=== PATIENT | male | born 1975 ===

== ENCOUNTER 2018-04-13 20:28 | Inpatient (IN) | payer OTHER ==
[2018-04-13] MEDS ORDERED: Sodium Chloride 0.9% 1,000 ML IV ONE ×3 (20:40→22:43)
[2018-04-13 20:58] LABS: BASO % 0.3 % (0.0-2.0); EOS % 0.3 % (0.0-4.0); LYMPH # 0.1 K/uL (1.0-4.3); LYMPH % 0.7 % (20.0-40.0); MEAN CELL VOLUME 86.9 fL (80.0-94.0); MEAN CORPUSCULAR HEMOGLOBIN 29.1 pg (27.0-31.0); MEAN CORPUSCULAR HGB CONC 33.4 g/dL (33.0-37.0); MEAN PLATELET VOLUME 9.2 fL (7.2-11.7); MONO # 0.2 K/uL (0.0-0.8); MONO % 1.3 % (0.0-10.0); NEUT % 97.4 % (50.0-75.0); NRBC % 0.3 % (0.0-2.0); PLATELET COUNT 174 K/uL (130-400); RBC 4.81 Mil/uL (4.40-5.90); RED CELL DISTRIBUTION WIDTH 13.6 % (11.5-14.5); WHITE BLOOD COUNT 15.4 K/uL (4.8-10.8)
[2018-04-13 21:10] LABS: SQUAMOUS EPITHIAL 4 /hpf (0-5); URINE BACTERIA RARE (<OCC); URINE BILIRUBIN 1+ (NEGATIVE); URINE BLOOD 1+ (NEGATIVE); URINE CLARITY Hazy (Clear); URINE COLOR Amber (YELLOW); URINE GLUCOSE (UA) NORMAL (Normal); URINE HYALINE CAST >20 /lpf (0-2); URINE LEUKOCYTE ESTERASE NEG Leu/uL (Negative); URINE PROTEIN 2+ mg/dL (NEGATIVE)
[2018-04-13] MEDS ORDERED: Morphine 4 MG/ML VIAL ONE (21:10)
[2018-04-13 21:12] LABS: ALB/GLOB RATIO 1.3 (1.0-2.1); ALBUMIN 4.2 g/dL (3.5-5.0); CALCIUM 8.6 mg/dl (8.6-10.4)
[2018-04-13] MEDS ORDERED: Potassium Chloride 20 mEq ER Tab PO STA (21:21)
--- NOTE | 2018-04-13 21:48 | C.PDOC ---
History Of Present Illness 43 year old male presents to the ER with a complaint of right lower abdominal pain since this morning, as well as fever/chills since . Patient admits to some nausea but denies vomiting or diarrhea. He also reports he has been constipated for the past 3 days, which is not typical for him. He denies dysuria, hematuria, chest pain, SOB, cough, palpitations. Time Seen by Provider: 04/13/18 20:36 Chief Complaint (Nursing): Abdominal Pain History Per: Patient History/Exam Limitations: no limitations Onset/Duration Of Symptoms: Days Current Symptoms Are (Timing): Still Present Severity: Moderate Location Of Pain/Discomfort: RLQ Radiation Of Pain To:: None Quality Of Discomfort: Unable To Describe Associated Symptoms: Nausea, Constipation Exacerbating Factors: None Alleviating Factors: None Recent travel outside of the [place]: No Past Medical History Reviewed: Historical Data, Nursing Documentation, Vital Signs Vital Signs: Last Vital Signs Temp 100.3 F H 04/13/18 20:33 Pulse 145 H 04/13/18 20:33 Resp 22 04/13/18 20:33 BP 125/82 04/13/18 20:33 Pulse Ox 95 04/13/18 20:33 Family History: States: No Known Family Hx - Social History Hx Alcohol Use: Yes Hx Substance Use: No - Immunization History Hx Tetanus Toxoid Vaccination: No Hx Influenza Vaccination: No Hx Pneumococcal Vaccination: No Review Of Systems Except As Marked, All Systems Reviewed And Found Negative. Constitutional: Negative for: Fever, Chills Cardiovascular: Negative for: Chest Pain, Palpitations Respiratory: Negative for: Cough, Shortness of Breath Gastrointestinal: Positive for: Nausea, Abdominal Pain, Constipation. Negative for: Vomiting, Diarrhea Genitourinary: Negative for: Dysuria Physical Exam - Physical Exam Appears: Non-toxic, Other (Uncomfortable, In moderate pain) Skin: Normal Color, Warm, Dry, No Rash Head: Atraumatic, Normacephalic Eye(s): bilateral: Normal Inspection Oral Mucosa: Moist Neck: Normal, Supple Chest: Symmetrical, No Tenderness Cardiovascular: Rhythm Regular (Tachycardic) Respiratory: No Rales, Rhonchi (right sided lower), No Wheezing Gastrointestinal/Abdominal: Bowel Sounds, Soft, Tenderness (Right periumbilical area and RLQ TTP), Distention, No Guarding, No Rebound Back: No CVA Tenderness Pulses: Left Dorsalis Pedis: Normal, Right Dorsalis Pedis: Normal Neurological/Psych: Oriented x3 ED Course And Treatment - Laboratory Results Result Diagrams: 04/20/18 06:07 04/20/18 06:05 Lab Results: Total Bilirubin 1.5 mg/dL (0.2-1.3) H 04/13/18 20:55 AST 127 U/L (17-59) H 04/13/18 20:55 ALT 132 U/L (21-72) H 04/13/18 20:55 Alkaline Phosphatase 122 U/L (38-126) 04/13/18 20:55 Total Protein 7.4 g/dL (6.3-8.3) 04/13/18 20:55 Albumin 4.2 g/dL (3.5-5.0) 04/13/18 20:55 Globulin 3.2 gm/dL (2.2-3.9) 04/13/18 20:55 Albumin/Globulin Ratio 1.3 (1.0-2.1) 04/13/18 20:55 Lipase 13 U/L (23-300) L 04/13/18 20:55 Urine Color Elizabeth (YELLOW) 04/13/18 20:48 Urine Clarity Hazy (Clear) 04/13/18 20:48 Urine pH 5.0 (5.0-8.0) 04/13/18 20:48 Ur Specific [place] 1.023 (1.003-1.030) 04/13/18 20:48 Urine Protein 2+ mg/dL (NEGATIVE) H 04/13/18 20:48 Urine Glucose (UA) Normal mg/dL (Normal) 04/13/18 20:48 Urine Ketones Negative mg/dL (NEGATIVE) 04/13/18 20:48 Urine Blood 1+ (NEGATIVE) H 04/13/18 20:48 Urine Nitrate Negative (NEGATIVE) 04/13/18 20:48 Urine Bilirubin 1+ (NEGATIVE) H 04/13/18 20:48 Urine Urobilinogen 4.0 mg/dL (0.2-1.0) 04/13/18 20:48 Ur Leukocyte Esterase Neg Martine/uL (Negative) 04/13/18 20:48 Urine WBC (Auto) 11 /hpf (0-5) H 04/13/18 20:48 Urine RBC (Auto) 5 /hpf (0-3) H 04/13/18 20:48 Ur Squamous Epith Cells 4 /hpf (0-5) 04/13/18 20:48 Urine Bacteria Rare (<OCC) 04/13/18 20:48 Hyaline Casts >20 /lpf (0-2) H 04/13/18 20:48 ECG: Interpreted By Me, Viewed By Me (sinus tachycardia 131bpm, normal axis, no acute ST/T wave changes) ECG Interpretation: Normal, Abnormal O2 Sat by Pulse Oximetry: 95 (Room air) Pulse Ox Interpretation: Normal - CT Scan/US CT CHEST/ABD/PELVIS Other Rad Studies (CT/US): Read By Radiologist, Radiology Report Reviewed CT/US Interpretation: EXAM: CT Chest without Intravenous Contrast. CT Abdomen and Pelvis without Intravenous Contrast. CLINICAL HISTORY: RLQ PAIN. ABNORMAL CHEST. R/O MASS. TECHNIQUE: Axial computed tomography images of the chest, abdomen and pelvis without intravenous contrast. 0.00 mGy-cm. CONTRAST: Without. COMPARISON: None provided. FINDINGS: CHEST: LUNGS: No pulmonary mass. There is dense pneumonic consolidation present in the posterolateral right upper thorax, mid and lower thorax. The left lung appears satisfactorily aerated. PLEURAL SPACES: No evidence of pneumothorax. A small right pleural effusion is noted. HEART: No cardiomegaly. No pericardial effusion is identified. LYMPH NODES: Several mildly enlarged right middle mediastinal lymph nodes are present. These may represent reactive lymph nodes. No hilar or axillary lymphadenopathy is seen. ABDOMEN AND PELVIS: LIVER: There is hepatomegaly noted. The liver measured approximately 18.5 cm in the midclavicular line. There is associated diffuse hepatic steatosis noted. No focal lesions. GALLBLADDER AND BILE DUCTS: The gallbladder appears within normal limits. No radioopaque gallstones are seen. No biliary ductal dilatation is evident. PANCREAS: Unremarkable. SPLEEN: Unremarkable. Incidental discovery is made of a 1.6 cm accessory splenic lobule along the inferior pole of the spleen; a normal variant finding. ADRENAL GLANDS: Unremarkable. KIDNEYS, URETERS, AND BLADDER: Some nonspecific bilateral perinephric stranding is noted. Though nonspecific, this finding can sometimes indicate the presence of pyelonephritis. No hydronephrosis or nephrolithiasis. No uterteral or bladder calculi. STOMACH AND BOWEL: The stomach is mildly distended with fluid and gas. No evidence of bowel obstruction. No definite evidence suggesting enteritis or colitis. APPENDIX: No evidence of acute appendicitis on CT examination. PERITONEUM: No free fluid. No free air. LYMPH NODES: No lymphadenopathy is evident. VASCULATURE: No evidence of abdominal aortic aneurysm. REPRODUCTIVE: The seminal vesicles and prostate gland appear normal. BONES: No acute osseous abnormality. A limbus vertebrae is seen along the anterior-superior endplate of L4; a normal variant finding. IMPRESSION: 1. Extensive posterior right lung pneumonic consolidation. 2. Associated small right pleural effusion. 3. Hepatomegaly with associated diffuse hepatic steatosis. 4. Non- specific bilateral perinephric stranding. Though nonspecific, this finding can sometimes be consistent with pyelonephritis. 5. The stomach is mildly d istended with fluid and gas. . Electronically signed on Apr 13, 2018 10:36:35 PM EST by: Jaya Cabezas M.D., GLENNY Certified By ABR & CBC[employer]. Fellowship Trained MRI and CT Specialist. Progress Note: Blood work, CXR, UA ordered and reviewed. CXR abnormal on right side - CT chest/abd/pelvis ordered. Code sepsis called - Patient given IV fluids and broad spectrum antibiotics. Right sided pneumonia + abdominal pain with hyponatremia - possible leigonella pneumonia? 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 Denies cough. IV Avelox added to Vanco + Zosyn. 23:05- Patient accepted by Dr. Altman for ICU admission. Dr. Harrison (hospitalist) aware of admissiom to his service. - Physician Consult Information Physician Contacted: Fernando Harrison Outcome Of Conversation: Discussed patient with hospitalist, agrees with admission for fever, pneumonia, hypoxia, leukocytosis with bandemia, hyponatremi a, elevated creatinine. Critical Care Time - Critical Care Note Total Time (in mins): 45 Documented critical care: time excludes all time spent performing seperately billable procedures. Disposition - Disposition Disposition: HOSPITALIZED Disposition Time: 23:11 Condition: STABLE - Clinical Impression Clinical Impression: Fever, Pneumonia, Hypoxia, Leukocytosis, Bandemia, Hyponatremia, Creatinine elevation - Scribe Statement The provider has reviewed the documentation as recorded by the Scribe Bg Mackey All medical record entries made by the Scribe were at my direction and personally dictated by me. I have reviewed the chart and agree that the record accurately reflects my personal performance of the history, physical exam, medical decision making, and the department course for this patient. I have also personally directed, reviewed, and agree with the discharge instructions and disposition.
[2018-04-13] MEDS ORDERED: Piperacillin/Tazobact 3.375 gm 100 ML IV STA (21:56)
[2018-04-13] MEDS ORDERED: Sodium Chloride 0.9% 1,000 ML ONE ×3 (22:00→22:42)
[2018-04-13] MEDS ORDERED: Piperacillin/Tazobact 3.375 gm 100 ML IVPB ONE (22:05)
[2018-04-13] MEDS ORDERED: Vancomycin 1 GM 1 GM/250 ML BAG IVPB ONE (22:06)
[2018-04-13 22:30] LABS: ABG ALLEN TEST YES; ARTERIAL BLOOD GAS HCO3 20.9 mmol/L (21-28); ARTERIAL BLOOD GAS O2 SAT 86.7 % (95-98); ARTERIAL BLOOD GAS PCO2 32 mm/Hg (35-45); ARTERIAL BLOOD GAS PH 7.39 (7.35-7.45); ARTERIAL BLOOD GAS PO2 46 mm/Hg (80-100); ARTERIAL BLOOD GAS TCO2 20.4 mmol/L (22-28)
[2018-04-13] MEDS ORDERED: Moxifloxacin IV 400mg/250ml NS 400 MG/250 ML BAG IV ONE (22:36)
[2018-04-13 22:56] LABS: BLOOD UREA NITROGEN 15 mg/dL (9-20); CALCIUM 7.5 mg/dl (8.6-10.4); GFR NON-AFRICAN AMERICAN 51
[2018-04-13 23:01] LABS: BANDS 47 % (0-2); LYMPHOCYTE 2 % (20-40); MONOCYTE 4 % (0-10); NEUTROPHIL 47 % (50-75); PLATELET ESTIMATE NORMAL (NORMAL); TOTAL CELLS COUNTED 100
[2018-04-13 23:09] LABS: B-TYPE NATRIURETIC PEPTIDE 1720 pg/mL (0-450)
--- NOTE | 2018-04-13 23:17 | CP.PCM.HP ---
<RomanJose Maria - Last Filed: 04/14/18 00:47> History of Present Illness - History of Present Illness History of Present Illness: PGY-1 History and Physical [address] Harrison Patient is a 43 year old male with no past significant medical history presenting to ED with acute onset RLQ abdominal pain that began Friday night with associated subjective fevers/chills since last . Patient also endorses nausea but denies any vomiting or diarrhea. Also has constipation x 3 days, states that he bought herbal remedy but did not help. He denies shortness of breath but has appears clinically short of breath on exam. No headaches, dizziness, chest pain, palpitations, cough, abdominal pain, hematuria, dysuria, melena, hematochezia. PMHx: denies PSHx: denies Allergies: NKDA Home Medications: Pt states he took "antibiotic" at home, does not recall what Social Hx: social drinker, denies tobacco or illicit drug use. 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 Family Hx: unknown PMD: none Present on Admission - Present on Admission Any Indicators Present on Admission: No Review of Systems - Review of Systems All systems: reviewed and no additional remarkable complaints except Review of Systems: as per HPI Past Patient History - Past Social History Smoking Status: Never Smoked - PSYCHIATRIC Hx Substance Use: No Meds Allergies/Adverse Reactions: Allergies Allergy/AdvReac Type Severity Reaction Status Date / Time No Known Allergies Allergy Verified 04/13/18 20:35 Physical Exam - Constitutional Appears: In Acute Distress Additional comments: diaphoretic - Head Exam Head Exam: ATRAUMATIC, NORMAL INSPECTION, NORMOCEPHALIC - Eye Exam Eye Exam: EOMI, Normal appearance, PERRL Pupil Exam: NORMAL ACCOMODATION - ENT Exam ENT Exam: Normal Exam - Neck Exam Neck exam: Positive for: Full Rom, Normal Inspection. Negative for: Tenderness - Respiratory Exam Respiratory Exam: Rhonchi, NORMAL BREATHING PATTERN. absent: Accessory Muscle Use, Rales, Wheezes, Respiratory Distress, Stridor - Cardiovascular Exam Cardiovascular Exam: Tachycardia, +S1, +S2 - GI/Abdominal Exam GI & Abdominal Exam: Distended, Organomegaly, Soft, Tenderness (RLQ). absent: Firm, Guarding, Rebound, Rigid - Extremities Exam Extremities exam: Positive for: normal capillary refill, normal inspection, pedal pulses present. Negative for: calf tenderness, pedal edema - Back Exam Back exam: NORMAL INSPECTION. absent: CVA tenderness (L), CVA tenderness (R) - Neurological Exam Neurological exam: Alert, CN II-XII Intact, Oriented x3 - Skin Skin Exam: Diaphoretic, Intact, Normal Color, Warm Results - Vital Signs Recent Vital Signs: Last Vital Signs Temp 100.2 F H 04/13/18 22:51 Pulse 136 H 04/13/18 22:51 Resp 32 H 04/13/18 22:51 BP 121/85 04/13/18 22:51 Pulse Ox 95 04/13/18 23:16 - Labs Result Diagrams: 04/13/18 20:55 04/13/18 22:40 Labs: Laboratory Results - last 24 hr 04/13/18 04/13/18 04/13/18 20:48 20:55 20:55 WBC 15.4 H RBC 4.81 Hgb 14.0 Hct 41.8 MCV 86.9 MCH 29.1 MCHC 33.4 RDW 13.6 Plt Count 174 MPV 9.2 Neut % (Auto) 97.4 H Lymph % (Auto) 0.7 L [place] % (Auto) 1.3 Eos % (Auto) 0.3 Baso % (Auto) 0.3 Neut # (Auto) 15.0 H Lymph # (Auto) 0.1 L [place] # (Auto) 0.2 Eos # (Auto) 0.0 Baso # (Auto) 0.0 Neutrophils % (Manual) 47 L Band Neutrophils % 47 H* Lymphocytes % (Manual) 2 L Monocytes % (Manual) 4 Platelet Estimate Normal Puncture Site pCO2 pO2 HCO3 ABG pH ABG Total CO2 ABG O2 Saturation ABG Base Excess [place] Test ABG Potassium Glucose Lactate Sodium 123 L Potassium 3.4 L Chloride 87 L Carbon Dioxide 21 L Anion Gap 18 BUN 16 Creatinine 2.1 H Est GFR ( Amer) 42 Est GFR (Non-Af Amer) 34 Random Glucose 199 H Calcium 8.6 Total Bilirubin 1.5 H AST 127 H ALT 132 H Alkaline Phosphatase 122 Total Creatine Kinase Troponin I NT-Pro-B Natriuret Pep Total Protein 7.4 Albumin 4.2 Globulin 3.2 Albumin/Globulin Ratio 1.3 Lipase 13 L Arterial Blood Potassium Urine Color Elizabeth Urine Clarity Hazy Urine pH 5.0 Ur Specific [place] 1.023 Urine Protein 2+ H Urine Glucose (UA) Normal Urine Ketones Negative Urine Blood 1+ H Urine Nitrate Negative Urine Bilirubin 1+ H Urine Urobilinogen 4.0 Ur Leukocyte Esterase Neg Urine WBC (Auto) 11 H Urine RBC (Auto) 5 H Ur Squamous Epith Cells 4 Urine Bacteria Rare Hyaline Casts >20 H Influenza Typ A,B (EIA) 04/13/18 04/13/18 04/13/18 22:00 22:25 22:40 WBC RBC Hgb Hct MCV MCH MCHC RDW Plt Count MPV Neut % (Auto) Lymph % (Auto) [place] % (Auto) Eos % (Auto) Baso % (Auto) Neut # (Auto) Lymph # (Auto) [place] # (Auto) Eos # (Auto) Baso # (Auto) Neutrophils % (Manual) Band Neutrophils % Lymphocytes % (Manual) Monocytes % (Manual) Platelet Estimate Puncture Site Rr pCO2 32 L pO2 46 L HCO3 20.9 L ABG pH 7.39 ABG Total CO2 20.4 L ABG O2 Saturation 86.7 L ABG Base Excess -4.6 L [place] Test Yes ABG Potassium 3.3 L Glucose 165 H Lactate 3.7 H Sodium 126.0 L Potassium Chloride 91.0 L Carbon Dioxide Anion Gap BUN Creatinine Est GFR ( Amer) Est GFR (Non-Af Amer) Random Glucose Calcium Total Bilirubin AST ALT Alkaline Phosphatase Total Creatine Kinase 165 Troponin I < 0.0120 NT-Pro-B Natriuret Pep 1720 H Total Protein Albumin Globulin Albumin/Globulin Ratio Lipase Arterial Blood Potassium 3.3 L Urine Color Urine Clarity Urine pH Ur Specific [place] Urine Protein Urine Glucose (UA) Urine Ketones Urine Blood Urine Nitrate Urine Bilirubin Urine Urobilinogen Ur Leukocyte Esterase Urine WBC (Auto) Urine RBC (Auto) Ur Squamous Epith Cells Urine Bacteria Hyaline Casts Influenza Typ A,B (EIA) Negative for flu a/b 04/13/18 22:40 WBC RBC Hgb Hct MCV MCH MCHC RDW Plt Count MPV Neut % (Auto) Lymph % (Auto) [place] % (Auto) Eos % (Auto) Baso % (Auto) Neut # (Auto) Lymph # (Auto) [place] # (Auto) Eos # (Auto) Baso # (Auto) Neutrophils % (Manual) Band Neutrophils % Lymphocytes % (Manual) Monocytes % (Manual) Platelet Estimate Puncture Site pCO2 pO2 HCO3 ABG pH ABG Total CO2 ABG O2 Saturation ABG Base Excess [place] Test ABG Potassium Glucose Lactate Sodium 124 L Potassium 3.2 L Chloride 91 L Carbon Dioxide 22 Anion Gap 14 BUN 15 Creatinine 1.5 Est GFR ( Amer) > 60 Est GFR (Non-Af Amer) 51 Random Glucose 159 H D Calcium 7.5 L Total Bilirubin AST ALT Alkaline Phosphatase Total Creatine Kinase Troponin I NT-Pro-B Natriuret Pep Total Protein Albumin Globulin Albumin/Globulin Ratio Lipase Arterial Blood Potassium Urine Color Urine Clarity Urine pH Ur Specific [place] Urine Protein Urine Glucose (UA) Urine Ketones Urine Blood Urine Nitrate Urine Bilirubin Urine Urobilinogen Ur Leukocyte Esterase Urine WBC (Auto) Urine RBC (Auto) Ur Squamous Epith Cells Urine Bacteria Hyaline Casts Influenza Typ A,B (EIA) Assessment & Plan - Assessment and Plan (Free Text) Assessment: 43 year old M with no pmhx presenting to ED with acute onset RLQ abdominal pain, fevers/chills Plan: Acute hypoxic respiratory failure, likely 2/2 CAP -f/u abdominal obstructive series XR -EKG: sinus tachycardia @131 bpm, no acute ST/T wave changes -CT abdomen/pelvis: Extensive posterior R lung consolidation. Associated small R pleural effusion. Hepatomegaly with diffuse hepatic steatosis. Bilateral perinephric stranding. Mildly distended stomach with fluid and gas levels. -case discussed with ICU attending (Dr. Altman), pt to be admitted to ICU for further eval -starting on high flow oxygen with humidified air -Duonebs -c/w rocephin, azithromycin -chest pt -Incentive spirometer -influenza negative -f/u legionella FAB -Cr -received 3L NS in ED -c/w LR @100 cc/hr -I/Os Hyponatremia -hypovolemic vs possibly infectious if legionella -IVF -continue to monitor Constipation -senokit bid -high fiber diet PPx, Diet, Disposition -DVT ppx: lovenox -GI ppx: not currently indicated Case discussed with Dr. Hunter Owens DO, PGY-1 <Fernando Harrison P - Last Filed: 04/14/18 08:26> Results - Vital Signs Recent Vital Signs: Last Vital Signs Temp 99.7 F H 04/14/18 04:00 Pulse 121 H 04/14/18 07:00 Resp 41 H 04/14/18 07:43 BP 110/73 04/14/18 07:00 Pulse Ox 93 L 04/14/18 07:00 - Labs Result Diagrams: 04/14/18 06:07 04/14/18 06:07 Labs: Laboratory Results - last 24 hr 04/13/18 04/13/18 04/13/18 20:48 20:55 20:55 WBC 15.4 H RBC 4.81 Hgb 14.0 Hct 41.8 MCV 86.9 MCH 29.1 MCHC 33.4 RDW 13.6 Plt Count 174 MPV 9.2 Neut % (Auto) 97.4 H Lymph % (Auto) 0.7 L [place] % (Auto) 1.3 Eos % (Auto) 0.3 Baso % (Auto) 0.3 Neut # (Auto) 15.0 H Lymph # (Auto) 0.1 L [place] # (Auto) 0.2 Eos # (Auto) 0.0 Baso # (Auto) 0.0 Neutrophils % (Manual) 47 L Band Neutrophils % 47 H* Lymphocytes % (Manual) 2 L Monocytes % (Manual) 4 Platelet Estimate Normal Puncture Site pCO2 pO2 HCO3 ABG pH ABG Total CO2 ABG O2 Saturation ABG Base Excess [place] Test ABG Potassium Glucose Lactate Sodium 123 L Potassium 3.4 L Chloride 87 L Carbon Dioxide 21 L Anion Gap 18 BUN 16 Creatinine 2.1 H Est GFR ( Amer) 42 Est GFR (Non-Af Amer) 34 Random Glucose 199 H Lactic Acid Calcium 8.6 Phosphorus Magnesium Total Bilirubin 1.5 H AST 127 H ALT 132 H Alkaline Phosphatase 122 Total Creatine Kinase Troponin I NT-Pro-B Natriuret Pep Total Protein 7.4 Albumin 4.2 Globulin 3.2 Albumin/Globulin Ratio 1.3 Lipase 13 L Free T4 TSH 3rd Generation Arterial Blood Potassium Urine Color [place] Urine Clarity Hazy Urine pH 5.0 Ur Specific [place] 1.023 Urine Protein 2+ H Urine Glucose (UA) Normal Urine Ketones Negative Urine Blood 1+ H Urine Nitrate Negative Urine Bilirubin 1+ H Urine Urobilinogen 4.0 Ur Leukocyte Esterase Neg Urine WBC (Auto) 11 H Urine RBC (Auto) 5 H Ur Squamous Epith Cells 4 Urine Bacteria Rare Hyaline Casts >20 H Urine Osmolality Influenza Typ A,B (EIA) 04/13/18 04/13/18 04/13/18 22:00 22:25 22:40 WBC RBC Hgb Hct MCV MCH MCHC RDW Plt Count MPV Neut % (Auto) Lymph % (Auto) [place] % (Auto) Eos % (Auto) Baso % (Auto) Neut # (Auto) Lymph # (Auto) [place] # (Auto) Eos # (Auto) Baso # (Auto) Neutrophils % (Manual) Band Neutrophils % Lymphocytes % (Manual) Monocytes % (Manual) Platelet Estimate Puncture Site Rr pCO2 32 L pO2 46 L HCO3 20.9 L ABG pH 7.39 ABG Total CO2 20.4 L ABG O2 Saturation 86.7 L ABG Base Excess -4.6 L [place] Test Yes ABG Potassium 3.3 L Glucose 165 H Lactate 3.7 H Sodium 126.0 L Potassium Chloride 91.0 L Carbon Dioxide Anion Gap BUN Creatinine Est GFR ( Amer) Est GFR (Non-Af Amer) Random Glucose Lactic Acid Calcium Phosphorus Magnesium Total Bilirubin AST ALT Alkaline Phosphatase Total Creatine Kinase 165 Troponin I < 0.0120 NT-Pro-B Natriuret Pep 1720 H Total Protein Albumin Globulin Albumin/Globulin Ratio Lipase Free T4 TSH 3rd Generation Arterial Blood Potassium 3.3 L Urine Color Urine Clarity Urine pH Ur Specific [place] Urine Protein Urine Glucose (UA) Urine Ketones Urine Blood Urine Nitrate Urine Bilirubin Urine Urobilinogen Ur Leukocyte Esterase Urine WBC (Auto) Urine RBC (Auto) Ur Squamous Epith Cells Urine Bacteria Hyaline Casts Urine Osmolality Influenza Typ A,B (EIA) Negative for flu a/b 04/13/18 04/14/18 04/14/18 22:40 00:32 06:07 WBC RBC Hgb Hct MCV MCH MCHC RDW Plt Count MPV Neut % (Auto) Lymph % (Auto) [place] % (Auto) Eos % (Auto) Baso % (Auto) Neut # (Auto) Lymph # (Auto) [place] # (Auto) Eos # (Auto) Baso # (Auto) Neutrophils % (Manual) Band Neutrophils % Lymphocytes % (Manual) Monocytes % (Manual) Platelet Estimate Puncture Site pCO2 pO2 HCO3 ABG pH ABG Total CO2 ABG O2 Saturation ABG Base Excess [place] Test ABG Potassium Glucose Lactate Sodium 124 L Potassium 3.2 L Chloride 91 L Carbon Dioxide 22 Anion Gap 14 BUN 15 Creatinine 1.5 Est GFR ( Amer) > 60 Est GFR (Non-Af Amer) 51 Random Glucose 159 H D Lactic Acid 2.4 H Calcium 7.5 L Phosphorus Magnesium Total Bilirubin AST ALT Alkaline Phosphatase Total Creatine Kinase Troponin I NT-Pro-B Natriuret Pep Total Protein Albumin Globulin Albumin/Globulin Ratio Lipase Free T4 TSH 3rd Generation Arterial Blood Potassium Urine Color Urine Clarity Urine pH Ur Specific [place] Urine Protein Urine Glucose (UA) Urine Ketones Urine Blood Urine Nitrate Urine Bilirubin Urine Urobilinogen Ur Leukocyte Esterase Urine WBC (Auto) Urine RBC (Auto) Ur Squamous Epith Cells Urine Bacteria Hyaline Casts Urine Osmolality 745 Influenza Typ A,B (EIA) 04/14/18 04/14/18 04/14/18 06:07 06:07 06:07 WBC 9.5 RBC 4.49 Hgb 13.2 Hct 39.3 MCV 87.4 MCH 29.3 MCHC 33.5 RDW 13.7 Plt Count 148 MPV 10.0 Neut % (Auto) 94.9 H Lymph % (Auto) 2.1 L [place] % (Auto) 0.9 Eos % (Auto) 1.9 Baso % (Auto) 0.2 Neut # (Auto) 9.0 H Lymph # (Auto) 0.2 L [place] # (Auto) 0.1 Eos # (Auto) 0.2 Baso # (Auto) 0.0 Neutrophils % (Manual) Band Neutrophils % Lymphocytes % (Manual) Monocytes % (Manual) Platelet Estimate Puncture Site pCO2 pO2 HCO3 ABG pH ABG Total CO2 ABG O2 Saturation ABG Base Excess [place] Test ABG Potassium Glucose Lactate Sodium 125 L Potassium 3.3 L Chloride 95 L Carbon Dioxide 20 L Anion Gap 14 BUN 13 Creatinine 0.7 L Est GFR ( Amer) > 60 Est GFR (Non-Af Amer) > 60 Random Glucose 100 D Lactic Acid Calcium 7.4 L Phosphorus 3.1 Magnesium 1.2 L Total Bilirubin 1.6 H AST 95 H D ALT 98 H D Alkaline Phosphatase 83 Total Creatine Kinase Troponin I NT-Pro-B Natriuret Pep Total Protein 6.2 L Albumin 3.3 L D Globulin 2.9 Albumin/Globulin Ratio 1.1 Lipase Free T4 2.01 TSH 3rd Generation 1.42 Arterial Blood Potassium Urine Color Urine Clarity Urine pH Ur Specific [place] Urine Protein Urine Glucose (UA) Urine Ketones Urine Blood Urine Nitrate Urine Bilirubin Urine Urobilinogen Ur Leukocyte Esterase Urine WBC (Auto) Urine RBC (Auto) Ur Squamous Epith Cells Urine Bacteria Hyaline Casts Urine Osmolality Influenza Typ A,B (EIA) Attending/Attestation - Attestation I have personally seen and examined this patient.: Yes I have fully participated in the care of the patient.: Yes I have reviewed all pertinent clinical information: Yes Notes (Text): 04/14/18 08:22 * Right side multilobar infiltrate with parapneumonic effusion * ? Thickened diaphargm vs edema/hematoma, no clinical signs of acute blood loss * Hypoxia due to above and splinting need 60% high flow * Alcohols abuse in wk ends as per patient will start thiamine mvt, fa, and watch of sighns of withdrawal * Hypokalemia replaced Plan Abx supprotive care Replace electrolyties Vitamins as above Watch of early signs of alcohol withdrawal USG of the RUQ the check the thickened diaphragm area GI/DVt prophylaxis See orders for detail.
[2018-04-13] MEDS ORDERED: Potassium Chloride 20 mEq 100 ML ONE (23:19)
[2018-04-13] MEDS ORDERED: Moxifloxacin IV 400mg/250ml NS 400 MG/250 ML BAG IVPB ONE (23:31)
--- NOTE | 2018-04-14 00:16 | CP.PCM.CON ---
History of Present Illness - History of Present Illness History of Present Illness: 43 year old male with no past significant medical history presenting to ED with acute onset RLQ abdominal pain that began this morning with associated subjective fevers/chills since last . Patient also endorses nausea but denies any vomiting or diarrhea. Also has constipation x 3 days. No headaches, dizziness, chest pain, palpitations, sob, cough, abdominal pain, hematuria, dysuria, melena, hematochezia. Review of Systems - Review of Systems All systems: reviewed and no additional remarkable complaints except - Gastrointestinal Gastrointestinal: Abdominal Pain (RLQ) Past Patient History - Past Social History Smoking Status: Never Smoked - PSYCHIATRIC Hx Substance Use: No Meds Allergies/Adverse Reactions: Allergies Allergy/AdvReac Type Severity Reaction Status Date / Time No Known Allergies Allergy Verified 04/13/18 20:35 - Medications Medications: Current Medications Albuterol/Ipratropium (Duoneb 3 Mg/0.5 Mg (3 Ml) Ud) 3 ml INH RQ4 JESUS Potassium Chloride (Potassium Chloride 20 Meq/100 Ml) 20 meq in 100 mls @ 50 mls/hr IVPB ONCE ONE Stop: 04/14/18 01:00 Lactated Ringer's (Lactated Ringer's) 1,000 mls @ 100 mls/hr IV .Q10H JESUS Ceftriaxone Sodium 1 gm/ (Sodium Chloride) 100 mls @ 100 mls/hr IVPB Q12H JESUS; Protocol Azithromycin 500 mg/ Sodium (Chloride) 250 mls @ 250 mls/hr IVPB DAILY JESUS; Protocol Sennosides (Senokot Tab) 8.6 mg PO BID JESUS Physical Exam - Head Exam Head Exam: ATRAUMATIC, NORMAL INSPECTION, NORMOCEPHALIC - Eye Exam Eye Exam: EOMI, Normal appearance, PERRL Pupil Exam: NORMAL ACCOMODATION, PERRL - ENT Exam ENT Exam: Mucous Membranes Moist, Normal Exam - Neck Exam Neck exam: Positive for: Normal Inspection - Respiratory Exam Respiratory Exam: Clear to Auscultation Bilateral, NORMAL BREATHING PATTERN - Cardiovascular Exam Cardiovascular Exam: Tachycardia, REGULAR RHYTHM - GI/Abdominal Exam GI & Abdominal Exam: Distended - Extremities Exam Extremities exam: Positive for: normal inspection - Neurological Exam Neurological exam: Alert, CN II-XII Intact, Oriented x3, Reflexes Normal - Psychiatric Exam Psychiatric exam: Normal Affect, Normal Mood Results - Vital Signs Recent Vital Signs: Last Vital Signs Temp 99 F 04/13/18 23:39 Pulse 135 H 04/13/18 23:39 Resp 32 H 04/13/18 23:39 BP 129/81 04/13/18 23:39 Pulse Ox 90 L 04/13/18 23:39 - Labs Result Diagrams: 04/13/18 20:55 04/13/18 22:40 Labs: Laboratory Results - last 24 hr 04/13/18 04/13/18 04/13/18 20:48 20:55 20:55 WBC 15.4 H RBC 4.81 Hgb 14.0 Hct 41.8 MCV 86.9 MCH 29.1 MCHC 33.4 RDW 13.6 Plt Count 174 MPV 9.2 Neut % (Auto) 97.4 H Lymph % (Auto) 0.7 L [place] % (Auto) 1.3 Eos % (Auto) 0.3 Baso % (Auto) 0.3 Neut # (Auto) 15.0 H Lymph # (Auto) 0.1 L [place] # (Auto) 0.2 Eos # (Auto) 0.0 Baso # (Auto) 0.0 Neutrophils % (Manual) 47 L Band Neutrophils % 47 H* Lymphocytes % (Manual) 2 L Monocytes % (Manual) 4 Platelet Estimate Normal Puncture Site pCO2 pO2 HCO3 ABG pH ABG Total CO2 ABG O2 Saturation ABG Base Excess [place] Test ABG Potassium Glucose Lactate Sodium 123 L Potassium 3.4 L Chloride 87 L Carbon Dioxide 21 L Anion Gap 18 BUN 16 Creatinine 2.1 H Est GFR ( Amer) 42 Est GFR (Non-Af Amer) 34 Random Glucose 199 H Calcium 8.6 Total Bilirubin 1.5 H AST 127 H ALT 132 H Alkaline Phosphatase 122 Total Creatine Kinase Troponin I NT-Pro-B Natriuret Pep Total Protein 7.4 Albumin 4.2 Globulin 3.2 Albumin/Globulin Ratio 1.3 Lipase 13 L Arterial Blood Potassium Urine Color [place] Urine Clarity Hazy Urine pH 5.0 Ur Specific [place] 1.023 Urine Protein 2+ H Urine Glucose (UA) Normal Urine Ketones Negative Urine Blood 1+ H Urine Nitrate Negative Urine Bilirubin 1+ H Urine Urobilinogen 4.0 Ur Leukocyte Esterase Neg Urine WBC (Auto) 11 H Urine RBC (Auto) 5 H Ur Squamous Epith Cells 4 Urine Bacteria Rare Hyaline Casts >20 H Influenza Typ A,B (EIA) 04/13/18 04/13/18 04/13/18 22:00 22:25 22:40 WBC RBC Hgb Hct MCV MCH MCHC RDW Plt Count MPV Neut % (Auto) Lymph % (Auto) [place] % (Auto) Eos % (Auto) Baso % (Auto) Neut # (Auto) Lymph # (Auto) [place] # (Auto) Eos # (Auto) Baso # (Auto) Neutrophils % (Manual) Band Neutrophils % Lymphocytes % (Manual) Monocytes % (Manual) Platelet Estimate Puncture Site Rr pCO2 32 L pO2 46 L HCO3 20.9 L ABG pH 7.39 ABG Total CO2 20.4 L ABG O2 Saturation 86.7 L ABG Base Excess -4.6 L [place] Test Yes ABG Potassium 3.3 L Glucose 165 H Lactate 3.7 H Sodium 126.0 L Potassium Chloride 91.0 L Carbon Dioxide Anion Gap BUN Creatinine Est GFR ( Amer) Est GFR (Non-Af Amer) Random Glucose Calcium Total Bilirubin AST ALT Alkaline Phosphatase Total Creatine Kinase 165 Troponin I < 0.0120 NT-Pro-B Natriuret Pep 1720 H Total Protein Albumin Globulin Albumin/Globulin Ratio Lipase Arterial Blood Potassium 3.3 L Urine Color Urine Clarity Urine pH Ur Specific [place] Urine Protein Urine Glucose (UA) Urine Ketones Urine Blood Urine Nitrate Urine Bilirubin Urine Urobilinogen Ur Leukocyte Esterase Urine WBC (Auto) Urine RBC (Auto) Ur Squamous Epith Cells Urine Bacteria Hyaline Casts Influenza Typ A,B (EIA) Negative for flu a/b 04/13/18 22:40 WBC RBC Hgb Hct MCV MCH MCHC RDW Plt Count MPV Neut % (Auto) Lymph % (Auto) [place] % (Auto) Eos % (Auto) Baso % (Auto) Neut # (Auto) Lymph # (Auto) [place] # (Auto) Eos # (Auto) Baso # (Auto) Neutrophils % (Manual) Band Neutrophils % Lymphocytes % (Manual) Monocytes % (Manual) Platelet Estimate Puncture Site pCO2 pO2 HCO3 ABG pH ABG Total CO2 ABG O2 Saturation ABG Base Excess [place] Test ABG Potassium Glucose Lactate Sodium 124 L Potassium 3.2 L Chloride 91 L Carbon Dioxide 22 Anion Gap 14 BUN 15 Creatinine 1.5 Est GFR ( Amer) > 60 Est GFR (Non-Af Amer) 51 Random Glucose 159 H D Calcium 7.5 L Total Bilirubin AST ALT Alkaline Phosphatase Total Creatine Kinase Troponin I NT-Pro-B Natriuret Pep Total Protein Albumin Globulin Albumin/Globulin Ratio Lipase Arterial Blood Potassium Urine Color Urine Clarity Urine pH Ur Specific [place] Urine Protein Urine Glucose (UA) Urine Ketones Urine Blood Urine Nitrate Urine Bilirubin Urine Urobilinogen Ur Leukocyte Esterase Urine WBC (Auto) Urine RBC (Auto) Ur Squamous Epith Cells Urine Bacteria Hyaline Casts Influenza Typ A,B (EIA) Assessment & Plan (1) Community acquired pneumonia Assessment and Plan: 43yo M. No significant PMHx, p/w abdominal pain secondary to constipation and community acquired pneumonia. Neuro: alert and oriented x 3 Pulm: acute hypoxic respiratory failure, starting on high flow oxygen with humidified air. Duonebs, abx, chest pt, incentive spirometer CV: hemodynamically stable, tachycardia Hem: leucocytosis with bandemia Renal: acute kidney injury with slightly elevated creatinine, received 3L in ED, continue LR@100, will monitor urine output. Hyponatremia, possibly infection related if legionella, possibly hypovolemic hyponatremia. Endo: no acute issues GI: constipated, start on senokot bid. regular high fiber diet. ID: sepsis from community acquired pneumonia, continue ceftriaxone and azithromycin. f/u legionella, f/u flu. DVT proph - lovenox GI proph - not currently indicated Code status - Full code Critical Care Time spent 35 minutes Multi-disciplinary rounds were performed with house staff, nursing, speech therapy, respiratory therapy, pharmacy and nutrition with integrated input from the primary team/attending and other consulting services. The documented time is cumulative and includes review of patient data/exams/labs/chart review and examination of the patient on rounds and throughout the day; time is exclusive of any procedures or teaching time. Status: Acute
[2018-04-14] MEDS: Lactated Ringer's 1,000 ML IV SCH ×4 (00:45→20:15)
[2018-04-14] MEDS: Azithromycin 500 MG in Sodium Chloride 0.9% 250 ML IVPB SCH ×2 (02:45→10:12)
[2018-04-14] MEDS: Albuterol-Ipratrop 3 mg / 0.5 (3 ml) UD INH SCH ×4 (03:06→16:15)
[2018-04-14 06:31] LABS: BASO % 0.2 % (0.0-2.0); EOS # 0.2 K/uL (0.0-0.7); EOS % 1.9 % (0.0-4.0); HEMOGLOBIN 13.2 g/dL (12.0-18.0); LYMPH # 0.2 K/uL (1.0-4.3); LYMPH % 2.1 % (20.0-40.0); MEAN CELL VOLUME 87.4 fL (80.0-94.0); MEAN CORPUSCULAR HEMOGLOBIN 29.3 pg (27.0-31.0); MEAN CORPUSCULAR HGB CONC 33.5 g/dL (33.0-37.0); MONO # 0.1 K/uL (0.0-0.8); MONO % 0.9 % (0.0-10.0); NEUT % 94.9 % (50.0-75.0); PLATELET COUNT 148 K/uL (130-400); RBC 4.49 Mil/uL (4.40-5.90); RED CELL DISTRIBUTION WIDTH 13.7 % (11.5-14.5); WHITE BLOOD COUNT 9.5 K/uL (4.8-10.8)
[2018-04-14 07:09] LABS: ALB/GLOB RATIO 1.1 (1.0-2.1); ALBUMIN 3.3 g/dL (3.5-5.0); ALT/SGPT 98 U/L (21-72); AST/SGOT 95 U/L (17-59); BLOOD UREA NITROGEN 13 mg/dL (9-20); CALCIUM 7.4 mg/dl (8.6-10.4); GFR NON-AFRICAN AMERICAN > 60
[2018-04-14 08:36] LABS: BANDS 30 % (0-2); LYMPHOCYTE 2 % (20-40); METAMYELOCYTE 2 % (0-0); MONOCYTE 2 % (0-10); MYELOCYTE 3 % (0-0); NEUTROPHIL 60 % (50-75); PLATELET ESTIMATE NORMAL (NORMAL); REACTIVE LYMPHOCYTES 1 % (0-0); TOTAL CELLS COUNTED 100
[2018-04-14 08:37] LABS: TOXIC GRANULATION PRESENT
--- NOTE | 2018-04-14 08:49 | RAD ---
Date of service: 04/13/2018 PROCEDURE: Radiographs of the chest and abdomen (obstructive series) HISTORY: abd pain, constipation COMPARISON: No prior. TECHNIQUE: AP radiograph of the chest, with upright and supine radiographs of the abdomen. FINDINGS: CHEST: Lungs: Asymmetrical elevation of the right hemidiaphragm right basal mild compressive atelectasis here and/or infiltrate here needs to be considered. Right perihilar to right lateral pleural surface vague opacity consolidation with or without pleural fluid in the minor fissure are some considerations. Concomitant right perihilar soft tissue pathology including neoplasm needs to be excluded. Left lung appears clear. Possible prominent vessel seen on end in left hilum; comparison with earlier outside chest x-rays if available recommended. Trace calcified lymph nodes here also possible Cardiovascular: Normal size heart. No pulmonary vascular congestion. No aortic atherosclerotic calcification present Pleura: Right inferolateral pleural effusion continuing along the lateral to superior right hemithorax some element of loculation and/or chronicity is inferred. Clinical follow-up and correlation needed. Other findings: None. ABDOMEN AND PELVIS: Bowel:. Some of the bowel loops transverse colon appear displaced by a distended stomach. Moderate right stool retention. No colonic bowel obstruction suspect. Free air: None. Bones: Unremarkable. Other findings: Stomach appears distended gastric paresis and/or gastric outlet obstruction needs to be considered IMPRESSION: Right basal and right mid lung zone consolidations asymmetrically elevated right hemidiaphragm with blending right pleural effusion. The few the right effusion appears slightly loculated extending to the right lung apex chronic pleural thickening can simulate this. The mid right lung zone airspace opacity may in part be pleural fluid-with additional surrounding atelectasis and or infiltrate here. This continues to the right hilum-a concomitant right hilar soft tissue mass needs to be considered and excluded as if possible. Gastric distension-gastric paresis and/or gastric outlet obstruction needs to be considered. This exerts some mass effect on and displacement on the transverse colon.. No intrinsic small or large bowel obstruction appreciated. Right colon stool retention can be seen with constipation. Other findings as above. Comments: Study marked for PA review .
--- NOTE | 2018-04-14 10:20 | CT ---
CT chest abdomen and pelvis HISTORY: Chest pain. Abnormal chest x-ray. Abdominal pain. Comparison: Obstructive series dated 04/13/2018 Technique: Multiple contiguous axial images were performed through the chest abdomen and pelvis without the use of intravenous contrast. Subsequently, sagittal and coronal reformatted images were obtained. This CT exam was performed using one or more of the following dose reduction techniques: Automated exposure control, adjustment of the mA and/or kV according to patient size, and/or use of iterative reconstruction technique. Findings: Dense consolidation noted within the right lung seen at the level of the posterior aspect of the right upper lobe as well as within the right lower lobe. Small right pleural effusion. Left lung is grossly clear. Trachea thru central airways are patent. No significant axillary adenopathy. Heterogeneous thyroid. Few shotty right paratracheal lymph nodes measuring up to 9 millimeters. No significant hilar adenopathy although evaluation of the right nicole is limited without contrast. No pericardial effusion. Degenerative changes in the spine. CT abdomen and pelvis: Prominent liver with diffuse fatty infiltration. Relative areas of low attenuation seen within the medial right and left hepatic lobes on series 3, image 92 measuring 3.1 centimeters and 1.5 centimeters demonstrating a Hounsfield unit attenuation 24 and 13, nonspecific. This may represent some relative focal fatty sparing. This may be better delineated with a multiphasic contrast enhanced CT of the abdomen and pelvis if indicated. Gallbladder is grossly preserved. There may be some sludge within the gallbladder. This may be better evaluate ultrasound if clinically indicated. Splenule. Spleen is otherwise preserved. Adrenal glands are preserved. Pancreas is preserved. Distended stomach with fluid and gas. Nonspecific bilateral perinephric fat stranding is noted. Though nonspecific, this finding can sometimes indicate the presence pyelonephritis. Clinical correlation. Right kidney: No calculi or hydronephrosis. Left Kidney: No calculi or hydronephrosis. Urinary bladder is preserved. Prostate and seminal vesicles appear grossly preserved. Under distended left hemicolon. Appendix is grossly preserved. Few shotty para-aortic and inguinal lymph nodes. Few shotty mesenteric lymph nodes. Degenerative changes in the spine. Suggestion of a possible limbus vertebral body with ossified density noted at the anterior superior aspect of the L4 vertebral body with some mild concavity at the anterior superior L4 vertebral body. Impression: Extensive right lung consolidation suggestive for pneumonia. Post treatment interval follow-up is recommended to ensure resolution and exclude additional etiology. Clinical correlation. Small right pleural effusion. Hepatomegaly with associated diffuse hepatic steatosis. Two low-attenuation foci within the liver as described. Clinical correlation. Nonspecific bilateral perinephric fat stranding. Though nonspecific, these findings can sometimes be consistent with pyelonephritis. Clinical correlation. Distended stomach with fluid and gas. Clinical correlation. Gallbladder is grossly preserved. There may be some sludge within the gallbladder. This may be better evaluated with ultrasound if clinically indicated. Additional findings as above. A preliminary report was generated at 10:36 p.m. on 04/13/[address] Jaya patel from [email or web address].
[2018-04-14] MEDS: Enoxaparin 40 mg Syringe SC SCH (10:28)
[2018-04-14] MEDS: Multiple Vitamins Tab PO SCH (10:29)
[2018-04-14] MEDS ORDERED: Potassium Phosphate 20 MMOLE in Sodium Chloride 0.9% 250 ML IVPB ONE (10:30)
[2018-04-14] MEDS ORDERED: Magnesium Sulfate 1 gm in D5W 1 GM/100 ML BAG IVPB SCH (11:30)
[2018-04-14] MEDS: Magnesium Sulfate 1 gm in D5W 1 GM/100 ML BAG IVPB SCH ×4 (11:41→21:00)
--- NOTE | 2018-04-14 12:02 | CP.CCUPN ---
<Misael Tate - Last Filed: 04/14/18 14:43> CCU Subjective - Physician Review Subjective (Free Text): PGY-[address] Rangel service Patient is seen and examined at bedside. Patient states feeling better today. denies nausea, vomiting, and resolving right chest and upper quadrant, but remaining right lower quadrant pain, especially when moving or taking deep breath. Pain gets better after bowel movement. As per nurse, patient had a total of 2 bowel movements. Patient denies any other symptoms. Critical Care Time Spent (in minutes): 35 CCU Objective - Vital Signs / Intake & Output Vital Signs (Last 4 hours): Vital Signs Pulse Resp BP Pulse Ox 04/14/18 09:00 121 H 25 H 121/73 94 L Intake and Output (Last 8hrs): Intake & Output 04/13/18 04/14/18 04/14/18 22:59 06:59 14:59 Intake Total 2100 1860 200 Output Total 100 1200 Balance 2000 660 200 Weight 190 lb 207 lb 3.752 oz Intake: IV 2100 1000 Intake, IV Amount 800 200 Right Antecubital 800 200 Oral 60 Output: Urine 100 1200 Urine, Voided 1200 Other: Voiding Method Urinal # Voids Urine, Voided 1 - Physical Exam Head: Positive for: Atraumatic, Normocephalic Pupils: Positive for: PERRL Extroacular Muscles: Positive for: EOMI Conjunctiva: Positive for: Normal Neck: Positive for: Normal Range of Motion Respiratory/Chest: Positive for: Decreased Breath Sounds (right middle and lower lobes ), Rales. Negative for: Respiratory Distress, Accessory Muscle Use Cardiovascular: Positive for: Regular Rate and Rhythm, Normal S1, S2 Abdomen: Positive for: Distention, Normal Bowel Sounds. Negative for: Tenderness Upper Extremity: Positive for: Normal Inspection. Negative for: Cyanosis, Edema Lower Extremity: Positive for: Normal Inspection. Negative for: Edema Neurological: Positive for: CN II-XII Intact Skin: Positive for: Warm, Dry, Normal Color Psychiatric: Positive for: Alert, Oriented x 3, Normal Insight - Medications Active Medications: Active Medications Generic Name Dose Route Start Last Admin Trade Name Freq PRN Reason Stop Dose Admin Albuterol/Ipratropium 3 ml 04/14/18 04:00 04/14/18 07:43 Duoneb 3 Mg/0.5 Mg (3 Ml) Ud INH 3 ml RQ4 JESUS Administration Enoxaparin Sodium 40 mg 04/14/18 10:00 04/14/18 10:28 Lovenox SC 40 mg DAILY JESUS Administration Folic Acid 1 mg 04/14/18 10:00 04/14/18 10:29 Folic Acid PO 1 mg DAILY JESUS Administration Lactated Ringer's 1,000 mls @ 100 mls/hr 04/14/18 00:15 04/14/18 00:45 Lactated Ringer's IV 100 mls/hr .Q10H JESUS Administration Ceftriaxone Sodium 1 gm/ 100 mls @ 100 mls/hr 04/14/18 05:00 04/14/18 04:55 Sodium Chloride IVPB 100 mls/hr Q12H JESUS Administration Protocol Azithromycin 500 mg/ Sodium 250 mls @ 250 mls/hr 04/14/18 00:11 04/14/18 10:12 Chloride IVPB 250 mls/hr DAILY JESUS Administration Protocol Potassium Phosphate 20 mmole/ 256.6667 mls @ 42.5 mls/hr 04/14/18 10:30 04/14/18 11:42 Sodium Chloride IVPB 04/14/18 16:32 42.5 mls/hr ONCE ONE Administration Influenza Virus Vaccine 60 mcg 04/17/18 10:00 Flucelvax Quad 2408-5536 Syr IM 04/17/18 10:01 .ONCE ONE Multivitamins 1 tab 04/14/18 10:00 04/14/18 10:29 Hexavitamin PO 1 tab DAILY JESUS Administration Pantoprazole Sodium 40 mg 04/14/18 10:00 04/14/18 10:30 Protonix Inj IVP 40 mg DAILY JESUS Administration Sennosides 8.6 mg 04/14/18 00:15 04/14/18 10:29 Senokot Tab PO 8.6 mg BID JESUS Administration Thiamine HCl 100 mg 04/14/18 10:00 04/14/18 10:29 Vitamin B1 Tab PO 100 mg DAILY JESUS Administration - Patient Studies Lab Studies: Microbiology Studies 04/13/18 20:48 Urine Culture - Preliminary Urine Random No growth. Lab Studies 04/14/18 04/14/18 04/14/18 Range/Units 06:07 06:07 06:07 WBC 9.5 (4.8-10.8) K/uL RBC 4.49 (4.40-5.90) Mil/uL Hgb 13.2 (12.0-18.0) g/dL Hct 39.3 (35.0-51.0) % MCV 87.4 (80.0-94.0) fL MCH 29.3 (27.0-31.0) pg MCHC 33.5 (33.0-37.0) g/dL RDW 13.7 (11.5-14.5) % Plt Count 148 (130-400) K/uL MPV 10.0 (7.2-11.7) fL Neut % (Auto) 94.9 H (50.0-75.0) % Lymph % (Auto) 2.1 L (20.0-40.0) % [place]corn % (Auto) 0.9 (0.0-10.0) % Eos % (Auto) 1.9 (0.0-4.0) % Baso % (Auto) 0.2 (0.0-2.0) % Neut # (Auto) 9.0 H (1.8-7.0) K/uL Lymph # (Auto) 0.2 L (1.0-4.3) K/uL [place] # (Auto) 0.1 (0.0-0.8) K/uL Eos # (Auto) 0.2 (0.0-0.7) K/uL Baso # (Auto) 0.0 (0.0-0.2) K/uL Neutrophils % (Manual) 60 (50-75) % Band Neutrophils % 30 H* (0-2) % Lymphocytes % (Manual) 2 L (20-40) % Reactive Lymphs % 1 H (0-0) % Monocytes % (Manual) 2 (0-10) % Metamyelocytes % 2 H (0-0) % Myelocytes % 3 H (0-0) % Toxic Granulation Present Dohle Bodies Present Platelet Estimate Normal (NORMAL) RBC Morphology Normal Puncture Site pCO2 (35-45) mm/Hg pO2 (80-100) mm/Hg HCO3 (21-28) mmol/L ABG pH (7.35-7.45) ABG Total CO2 (22-28) mmol/L ABG O2 Saturation (95-98) % ABG Base Excess (-2.0-3.0) mmol/L [place] Test ABG Potassium (3.6-5.2) mmol/L Glucose (75-110) mg/dl Lactate (0.7-2.1) mmol/L Sodium 125 L (132-148) mmol/L Potassium 3.3 L (3.6-5.2) mmol/L Chloride 95 L (98-107) mmol/L Carbon Dioxide 20 L (22-30) mmol/L Anion Gap 14 (10-20) BUN 13 (9-20) mg/dL Creatinine 0.7 L (0.8-1.5) mg/dL Est GFR ( Amer) > 60 Est GFR (Non-Af Amer) > 60 Random Glucose 100 D (75-110) mg/dL Lactic Acid (0.7-2.1) mmol/L Calcium 7.4 L (8.6-10.4) mg/dl Phosphorus 3.1 (2.5-4.5) mg/dL Magnesium 1.2 L (1.6-2.3) mg/dL Total Bilirubin 1.6 H (0.2-1.3) mg/dL AST 95 H D (17-59) U/L ALT 98 H D (21-72) U/L Alkaline Phosphatase 83 (38-126) U/L Total Creatine Kinase (55-170) U/L Troponin I (0.00-0.120) ng/mL NT-Pro-B Natriuret Pep (0-450) pg/mL Total Protein 6.2 L (6.3-8.3) g/dL Albumin 3.3 L D (3.5-5.0) g/dL Globulin 2.9 (2.2-3.9) gm/dL Albumin/Globulin Ratio 1.1 (1.0-2.1) Lipase (23-300) U/L Free T4 2.01 (0.78-2.19) ng/dL TSH 3rd Generation 1.42 (0.46-4.68) mIU/L Arterial Blood Potassium (3.6-5.2) mmol/L Urine Color (YELLOW) Urine Clarity (Clear) Urine pH (5.0-8.0) Ur Specific [place] (1.003-1.030) Urine Protein (NEGATIVE) mg/dL Urine Glucose (UA) (Normal) mg/dL Urine Ketones (NEGATIVE) mg/dL Urine Blood (NEGATIVE) Urine Nitrate (NEGATIVE) Urine Bilirubin (NEGATIVE) Urine Urobilinogen (0.2-1.0) mg/dL Ur Leukocyte Esterase (Negative) Martine/uL Urine WBC (Auto) (0-5) /hpf Urine RBC (Auto) (0-3) /hpf Ur Squamous Epith Cells (0-5) /hpf Urine Bacteria (<OCC) Hyaline Casts (0-2) /lpf Urine Osmolality (300-1000) mosm/kg Influenza Typ A,B (EIA) (NEGATIVE) Ur L.pneumophila Ag (NEGATIVE) 04/14/18 04/14/18 04/13/18 Range/Units 06:07 00:32 22:46 WBC (4.8-10.8) K/uL RBC (4.40-5.90) Mil/uL Hgb (12.0-18.0) g/dL Hct (35.0-51.0) % MCV (80.0-94.0) fL MCH (27.0-31.0) pg MCHC (33.0-37.0) g/dL RDW (11.5-14.5) % Plt Count (130-400) K/uL MPV (7.2-11.7) fL Neut % (Auto) (50.0-75.0) % Lymph % (Auto) (20.0-40.0) % [place]corn % (Auto) (0.0-10.0) % Eos % (Auto) (0.0-4.0) % Baso % (Auto) (0.0-2.0) % Neut # (Auto) (1.8-7.0) K/uL Lymph # (Auto) (1.0-4.3) K/uL [place] # (Auto) (0.0-0.8) K/uL Eos # (Auto) (0.0-0.7) K/uL Baso # (Auto) (0.0-0.2) K/uL Neutrophils % (Manual) (50-75) % Band Neutrophils % (0-2) % Lymphocytes % (Manual) (20-40) % Reactive Lymphs % (0-0) % Monocytes % (Manual) (0-10) % Metamyelocytes % (0-0) % Myelocytes % (0-0) % Toxic Granulation Dohle Bodies Platelet Estimate (NORMAL) RBC Morphology Puncture Site pCO2 (35-45) mm/Hg pO2 (80-100) mm/Hg HCO3 (21-28) mmol/L ABG pH (7.35-7.45) ABG Total CO2 (22-28) mmol/L ABG O2 Saturation (95-98) % ABG Base Excess (-2.0-3.0) mmol/L [place] Test ABG Potassium (3.6-5.2) mmol/L Glucose (75-110) mg/dl Lactate (0.7-2.1) mmol/L Sodium (132-148) mmol/L Potassium (3.6-5.2) mmol/L Chloride (98-107) mmol/L Carbon Dioxide (22-30) mmol/L Anion Gap (10-20) BUN (9-20) mg/dL Creatinine (0.8-1.5) mg/dL Est GFR ( Amer) Est GFR (Non-Af Amer) Random Glucose (75-110) mg/dL Lactic Acid 2.4 H (0.7-2.1) mmol/L Calcium (8.6-10.4) mg/dl Phosphorus (2.5-4.5) mg/dL Magnesium (1.6-2.3) mg/dL Total Bilirubin (0.2-1.3) mg/dL AST (17-59) U/L ALT (21-72) U/L Alkaline Phosphatase (38-126) U/L Total Creatine Kinase (55-170) U/L Troponin I (0.00-0.120) ng/mL NT-Pro-B Natriuret Pep (0-450) pg/mL Total Protein (6.3-8.3) g/dL Albumin (3.5-5.0) g/dL Globulin (2.2-3.9) gm/dL Albumin/Globulin Ratio (1.0-2.1) Lipase (23-300) U/L Free T4 (0.78-2.19) ng/dL TSH 3rd Generation (0.46-4.68) mIU/L Arterial Blood Potassium (3.6-5.2) mmol/L Urine Color (YELLOW) Urine Clarity (Clear) Urine pH (5.0-8.0) Ur Specific [place] (1.003-1.030) Urine Protein (NEGATIVE) mg/dL Urine Glucose (UA) (Normal) mg/dL Urine Ketones (NEGATIVE) mg/dL Urine Blood (NEGATIVE) Urine Nitrate (NEGATIVE) Urine Bilirubin (NEGATIVE) Urine Urobilinogen (0.2-1.0) mg/dL Ur Leukocyte Esterase (Negative) Martine/uL Urine WBC (Auto) (0-5) /hpf Urine RBC (Auto) (0-3) /hpf Ur Squamous Epith Cells (0-5) /hpf Urine Bacteria (<OCC) Hyaline Casts (0-2) /lpf Urine Osmolality 745 (300-1000) mosm/kg Influenza Typ A,B (EIA) (NEGATIVE) Ur L.pneumophila Ag Negative (NEGATIVE) 04/13/18 04/13/18 04/13/18 Range/Units 22:40 22:40 22:25 WBC (4.8-10.8) K/uL RBC (4.40-5.90) Mil/uL Hgb (12.0-18.0) g/dL Hct (35.0-51.0) % MCV (80.0-94.0) fL MCH (27.0-31.0) pg MCHC (33.0-37.0) g/dL RDW (11.5-14.5) % Plt Count (130-400) K/uL MPV (7.2-11.7) fL Neut % (Auto) (50.0-75.0) % Lymph % (Auto) (20.0-40.0) % [place] % (Auto) (0.0-10.0) % Eos % (Auto) (0.0-4.0) % Baso % (Auto) (0.0-2.0) % Neut # (Auto) (1.8-7.0) K/uL Lymph # (Auto) (1.0-4.3) K/uL [place] # (Auto) (0.0-0.8) K/uL Eos # (Auto) (0.0-0.7) K/uL Baso # (Auto) (0.0-0.2) K/uL Neutrophils % (Manual) (50-75) % Band Neutrophils % (0-2) % Lymphocytes % (Manual) (20-40) % Reactive Lymphs % (0-0) % Monocytes % (Manual) (0-10) % Metamyelocytes % (0-0) % Myelocytes % (0-0) % Toxic Granulation Dohle Bodies Platelet Estimate (NORMAL) RBC Morphology Puncture Site pCO2 (35-45) mm/Hg pO2 (80-100) mm/Hg HCO3 (21-28) mmol/L ABG pH (7.35-7.45) ABG Total CO2 (22-28) mmol/L ABG O2 Saturation (95-98) % ABG Base Excess (-2.0-3.0) mmol/L [place] Test ABG Potassium (3.6-5.2) mmol/L Glucose (75-110) mg/dl Lactate (0.7-2.1) mmol/L Sodium 124 L (132-148) mmol/L Potassium 3.2 L (3.6-5.2) mmol/L Chloride 91 L (98-107) mmol/L Carbon Dioxide 22 (22-30) mmol/L Anion Gap 14 (10-20) BUN 15 (9-20) mg/dL Creatinine 1.5 (0.8-1.5) mg/dL Est GFR ( Amer) > 60 Est GFR (Non-Af Amer) 51 Random Glucose 159 H D (75-110) mg/dL Lactic Acid (0.7-2.1) mmol/L Calcium 7.5 L (8.6-10.4) mg/dl Phosphorus (2.5-4.5) mg/dL Magnesium (1.6-2.3) mg/dL Total Bilirubin (0.2-1.3) mg/dL AST (17-59) U/L ALT (21-72) U/L Alkaline Phosphatase (38-126) U/L Total Creatine Kinase 165 (55-170) U/L Troponin I < 0.0120 (0.00-0.120) ng/mL NT-Pro-B Natriuret Pep 1720 H (0-450) pg/mL Total Protein (6.3-8.3) g/dL Albumin (3.5-5.0) g/dL Globulin (2.2-3.9) gm/dL Albumin/Globulin Ratio (1.0-2.1) Lipase (23-300) U/L Free T4 (0.78-2.19) ng/dL TSH 3rd Generation (0.46-4.68) mIU/L Arterial Blood Potassium (3.6-5.2) mmol/L Urine Color (YELLOW) Urine Clarity (Clear) Urine pH (5.0-8.0) Ur Specific [place] (1.003-1.030) Urine Protein (NEGATIVE) mg/dL Urine Glucose (UA) (Normal) mg/dL Urine Ketones (NEGATIVE) mg/dL Urine Blood (NEGATIVE) Urine Nitrate (NEGATIVE) Urine Bilirubin (NEGATIVE) Urine Urobilinogen (0.2-1.0) mg/dL Ur Leukocyte Esterase (Negative) Martine/uL Urine WBC (Auto) (0-5) /hpf Urine RBC (Auto) (0-3) /hpf Ur Squamous Epith Cells (0-5) /hpf Urine Bacteria (<OCC) Hyaline Casts (0-2) /lpf Urine Osmolality (300-1000) mosm/kg Influenza Typ A,B (EIA) Negative for flu a/b (NEGATIVE) Ur L.pneumophila Ag (NEGATIVE) 04/13/18 04/13/18 04/13/18 Range/Units 22:00 20:55 20:55 WBC 15.4 H (4.8-10.8) K/uL RBC 4.81 (4.40-5.90) Mil/uL Hgb 14.0 (12.0-18.0) g/dL Hct 41.8 (35.0-51.0) % MCV 86.9 (80.0-94.0) fL MCH 29.1 (27.0-31.0) pg MCHC 33.4 (33.0-37.0) g/dL RDW 13.6 (11.5-14.5) % Plt Count 174 (130-400) K/uL MPV 9.2 (7.2-11.7) fL Neut % (Auto) 97.4 H (50.0-75.0) % Lymph % (Auto) 0.7 L (20.0-40.0) % [place] % (Auto) 1.3 (0.0-10.0) % Eos % (Auto) 0.3 (0.0-4.0) % Baso % (Auto) 0.3 (0.0-2.0) % Neut # (Auto) 15.0 H (1.8-7.0) K/uL Lymph # (Auto) 0.1 L (1.0-4.3) K/uL [place] # (Auto) 0.2 (0.0-0.8) K/uL Eos # (Auto) 0.0 (0.0-0.7) K/uL Baso # (Auto) 0.0 (0.0-0.2) K/uL Neutrophils % (Manual) 47 L (50-75) % Band Neutrophils % 47 H* (0-2) % Lymphocytes % (Manual) 2 L (20-40) % Reactive Lymphs % (0-0) % Monocytes % (Manual) 4 (0-10) % Metamyelocytes % (0-0) % Myelocytes % (0-0) % Toxic Granulation Dohle Bodies Platelet Estimate Normal (NORMAL) RBC Morphology Puncture Site Rr pCO2 32 L (35-45) mm/Hg pO2 46 L (80-100) mm/Hg HCO3 20.9 L (21-28) mmol/L ABG pH 7.39 (7.35-7.45) ABG Total CO2 20.4 L (22-28) mmol/L ABG O2 Saturation 86.7 L (95-98) % ABG Base Excess -4.6 L (-2.0-3.0) mmol/L [place] Test Yes ABG Potassium 3.3 L (3.6-5.2) mmol/L Glucose 165 H (75-110) mg/dl Lactate 3.7 H (0.7-2.1) mmol/L Sodium 126.0 L 123 L (132-148) mmol/L Potassium 3.4 L (3.6-5.2) mmol/L Chloride 91.0 L 87 L (98-107) mmol/L Carbon Dioxide 21 L (22-30) mmol/L Anion Gap 18 (10-20) BUN 16 (9-20) mg/dL Creatinine 2.1 H (0.8-1.5) mg/dL Est GFR ( Amer) 42 Est GFR (Non-Af Amer) 34 Random Glucose 199 H (75-110) mg/dL Lactic Acid (0.7-2.1) mmol/L Calcium 8.6 (8.6-10.4) mg/dl Phosphorus (2.5-4.5) mg/dL Magnesium (1.6-2.3) mg/dL Total Bilirubin 1.5 H (0.2-1.3) mg/dL AST 127 H (17-59) U/L ALT 132 H (21-72) U/L Alkaline Phosphatase 122 (38-126) U/L Total Creatine Kinase (55-170) U/L Troponin I (0.00-0.120) ng/mL NT-Pro-B Natriuret Pep (0-450) pg/mL Total Protein 7.4 (6.3-8.3) g/dL Albumin 4.2 (3.5-5.0) g/dL Globulin 3.2 (2.2-3.9) gm/dL Albumin/Globulin Ratio 1.3 (1.0-2.1) Lipase 13 L (23-300) U/L Free T4 (0.78-2.19) ng/dL TSH 3rd Generation (0.46-4.68) mIU/L Arterial Blood Potassium 3.3 L (3.6-5.2) mmol/L Urine Color (YELLOW) Urine Clarity (Clear) Urine pH (5.0-8.0) Ur Specific [place] (1.003-1.030) Urine Protein (NEGATIVE) mg/dL Urine Glucose (UA) (Normal) mg/dL Urine Ketones (NEGATIVE) mg/dL Urine Blood (NEGATIVE) Urine Nitrate (NEGATIVE) Urine Bilirubin (NEGATIVE) Urine Urobilinogen (0.2-1.0) mg/dL Ur Leukocyte Esterase (Negative) Martine/uL Urine WBC (Auto) (0-5) /hpf Urine RBC (Auto) (0-3) /hpf Ur Squamous Epith Cells (0-5) /hpf Urine Bacteria (<OCC) Hyaline Casts (0-2) /lpf Urine Osmolality (300-1000) mosm/kg Influenza Typ A,B (EIA) (NEGATIVE) Ur L.pneumophila Ag (NEGATIVE) 04/13/18 Range/Units 20:48 WBC (4.8-10.8) K/uL RBC (4.40-5.90) Mil/uL Hgb (12.0-18.0) g/dL Hct (35.0-51.0) % MCV (80.0-94.0) fL MCH (27.0-31.0) pg MCHC (33.0-37.0) g/dL RDW (11.5-14.5) % Plt Count (130-400) K/uL MPV (7.2-11.7) fL Neut % (Auto) (50.0-75.0) % Lymph % (Auto) (20.0-40.0) % [place] % (Auto) (0.0-10.0) % Eos % (Auto) (0.0-4.0) % Baso % (Auto) (0.0-2.0) % Neut # (Auto) (1.8-7.0) K/uL Lymph # (Auto) (1.0-4.3) K/uL [place] # (Auto) (0.0-0.8) K/uL Eos # (Auto) (0.0-0.7) K/uL Baso # (Auto) (0.0-0.2) K/uL Neutrophils % (Manual) (50-75) % Band Neutrophils % (0-2) % Lymphocytes % (Manual) (20-40) % Reactive Lymphs % (0-0) % Monocytes % (Manual) (0-10) % Metamyelocytes % (0-0) % Myelocytes % (0-0) % Toxic Granulation Dohle Bodies Platelet Estimate (NORMAL) RBC Morphology Puncture Site pCO2 (35-45) mm/Hg pO2 (80-100) mm/Hg HCO3 (21-28) mmol/L ABG pH (7.35-7.45) ABG Total CO2 (22-28) mmol/L ABG O2 Saturation (95-98) % ABG Base Excess (-2.0-3.0) mmol/L [place] Test ABG Potassium (3.6-5.2) mmol/L Glucose (75-110) mg/dl Lactate (0.7-2.1) mmol/L Sodium (132-148) mmol/L Potassium (3.6-5.2) mmol/L Chloride (98-107) mmol/L Carbon Dioxide (22-30) mmol/L Anion Gap (10-20) BUN (9-20) mg/dL Creatinine (0.8-1.5) mg/dL Est GFR ( Amer) Est GFR (Non-Af Amer) Random Glucose (75-110) mg/dL Lactic Acid (0.7-2.1) mmol/L Calcium (8.6-10.4) mg/dl Phosphorus (2.5-4.5) mg/dL Magnesium (1.6-2.3) mg/dL Total Bilirubin (0.2-1.3) mg/dL AST (17-59) U/L ALT (21-72) U/L Alkaline Phosphatase (38-126) U/L Total Creatine Kinase (55-170) U/L Troponin I (0.00-0.120) ng/mL NT-Pro-B Natriuret Pep (0-450) pg/mL Total Protein (6.3-8.3) g/dL Albumin (3.5-5.0) g/dL Globulin (2.2-3.9) gm/dL Albumin/Globulin Ratio (1.0-2.1) Lipase (23-300) U/L Free T4 (0.78-2.19) ng/dL TSH 3rd Generation (0.46-4.68) mIU/L Arterial Blood Potassium (3.6-5.2) mmol/L Urine Color [place] (YELLOW) Urine Clarity Hazy (Clear) Urine pH 5.0 (5.0-8.0) Ur Specific [place] 1.023 (1.003-1.030) Urine Protein 2+ H (NEGATIVE) mg/dL Urine Glucose (UA) Normal (Normal) mg/dL Urine Ketones Negative (NEGATIVE) mg/dL Urine Blood 1+ H (NEGATIVE) Urine Nitrate Negative (NEGATIVE) Urine Bilirubin 1+ H (NEGATIVE) Urine Urobilinogen 4.0 (0.2-1.0) mg/dL Ur Leukocyte Esterase Neg (Negative) Martine/uL Urine WBC (Auto) 11 H (0-5) /hpf Urine RBC (Auto) 5 H (0-3) /hpf Ur Squamous Epith Cells 4 (0-5) /hpf Urine Bacteria Rare (<OCC) Hyaline Casts >20 H (0-2) /lpf Urine Osmolality (300-1000) mosm/kg Influenza Typ A,B (EIA) (NEGATIVE) Ur L.pneumophila Ag (NEGATIVE) Laboratory Results - last 24 hr 04/13/18 04/13/18 04/13/18 20:48 20:55 20:55 WBC 15.4 H RBC 4.81 Hgb 14.0 Hct 41.8 MCV 86.9 MCH 29.1 MCHC 33.4 RDW 13.6 Plt Count 174 MPV 9.2 Neut % (Auto) 97.4 H Lymph % (Auto) 0.7 L [place] % (Auto) 1.3 Eos % (Auto) 0.3 Baso % (Auto) 0.3 Neut # (Auto) 15.0 H Lymph # (Auto) 0.1 L [place] # (Auto) 0.2 Eos # (Auto) 0.0 Baso # (Auto) 0.0 Neutrophils % (Manual) 47 L Band Neutrophils % 47 H* Lymphocytes % (Manual) 2 L Reactive Lymphs % Monocytes % (Manual) 4 Metamyelocytes % Myelocytes % Toxic Granulation Dohle Bodies Platelet Estimate Normal RBC Morphology Puncture Site pCO2 pO2 HCO3 ABG pH ABG Total CO2 ABG O2 Saturation ABG Base Excess [place] Test ABG Potassium Glucose Lactate Sodium 123 L Potassium 3.4 L Chloride 87 L Carbon Dioxide 21 L Anion Gap 18 BUN 16 Creatinine 2.1 H Est GFR ( Amer) 42 Est GFR (Non-Af Amer) 34 Random Glucose 199 H Lactic Acid Calcium 8.6 Phosphorus Magnesium Total Bilirubin 1.5 H AST 127 H ALT 132 H Alkaline Phosphatase 122 Total Creatine Kinase Troponin I NT-Pro-B Natriuret Pep Total Protein 7.4 Albumin 4.2 Globulin 3.2 Albumin/Globulin Ratio 1.3 Lipase 13 L Free T4 TSH 3rd Generation Arterial Blood Potassium Urine Color [place] Urine Clarity Hazy Urine pH 5.0 Ur Specific [place] 1.023 Urine Protein 2+ H Urine Glucose (UA) Normal Urine Ketones Negative Urine Blood 1+ H Urine Nitrate Negative Urine Bilirubin 1+ H Urine Urobilinogen 4.0 Ur Leukocyte Esterase Neg Urine WBC (Auto) 11 H Urine RBC (Auto) 5 H Ur Squamous Epith Cells 4 Urine Bacteria Rare Hyaline Casts >20 H Urine Osmolality Influenza Typ A,B (EIA) Ur L.pneumophila Ag 04/13/18 04/13/18 04/13/18 22:00 22:25 22:40 WBC RBC Hgb Hct MCV MCH MCHC RDW Plt Count MPV Neut % (Auto) Lymph % (Auto) [place] % (Auto) Eos % (Auto) Baso % (Auto) Neut # (Auto) Lymph # (Auto) [place] # (Auto) Eos # (Auto) Baso # (Auto) Neutrophils % (Manual) Band Neutrophils % Lymphocytes % (Manual) Reactive Lymphs % Monocytes % (Manual) Metamyelocytes % Myelocytes % Toxic Granulation Dohle Bodies Platelet Estimate RBC Morphology Puncture Site Rr pCO2 32 L pO2 46 L HCO3 20.9 L ABG pH 7.39 ABG Total CO2 20.4 L ABG O2 Saturation 86.7 L ABG Base Excess -4.6 L [place] Test Yes ABG Potassium 3.3 L Glucose 165 H Lactate 3.7 H Sodium 126.0 L Potassium Chloride 91.0 L Carbon Dioxide Anion Gap BUN Creatinine Est GFR ( Amer) Est GFR (Non-Af Amer) Random Glucose Lactic Acid Calcium Phosphorus Magnesium Total Bilirubin AST ALT Alkaline Phosphatase Total Creatine Kinase 165 Troponin I < 0.0120 NT-Pro-B Natriuret Pep 1720 H Total Protein Albumin Globulin Albumin/Globulin Ratio Lipase Free T4 TSH 3rd Generation Arterial Blood Potassium 3.3 L Urine Color Urine Clarity Urine pH Ur Specific [place] Urine Protein Urine Glucose (UA) Urine Ketones Urine Blood Urine Nitrate Urine Bilirubin Urine Urobilinogen Ur Leukocyte Esterase Urine WBC (Auto) Urine RBC (Auto) Ur Squamous Epith Cells Urine Bacteria Hyaline Casts Urine Osmolality Influenza Typ A,B (EIA) Negative for flu a/b Ur L.pneumophila Ag 04/13/18 04/13/18 04/14/18 22:40 22:46 00:32 WBC RBC Hgb Hct MCV MCH MCHC RDW Plt Count MPV Neut % (Auto) Lymph % (Auto) [place] % (Auto) Eos % (Auto) Baso % (Auto) Neut # (Auto) Lymph # (Auto) [place] # (Auto) Eos # (Auto) Baso # (Auto) Neutrophils % (Manual) Band Neutrophils % Lymphocytes % (Manual) Reactive Lymphs % Monocytes % (Manual) Metamyelocytes % Myelocytes % Toxic Granulation Dohle Bodies Platelet Estimate RBC Morphology Puncture Site pCO2 pO2 HCO3 ABG pH ABG Total CO2 ABG O2 Saturation ABG Base Excess [place] Test ABG Potassium Glucose Lactate Sodium 124 L Potassium 3.2 L Chloride 91 L Carbon Dioxide 22 Anion Gap 14 BUN 15 Creatinine 1.5 Est GFR ( Amer) > 60 Est GFR (Non-Af Amer) 51 Random Glucose 159 H D Lactic Acid 2.4 H Calcium 7.5 L Phosphorus Magnesium Total Bilirubin AST ALT Alkaline Phosphatase Total Creatine Kinase Troponin I NT-Pro-B Natriuret Pep Total Protein Albumin Globulin Albumin/Globulin Ratio Lipase Free T4 TSH 3rd Generation Arterial Blood Potassium Urine Color Urine Clarity Urine pH Ur Specific [place] Urine Protein Urine Glucose (UA) Urine Ketones Urine Blood Urine Nitrate Urine Bilirubin Urine Urobilinogen Ur Leukocyte Esterase Urine WBC (Auto) Urine RBC (Auto) Ur Squamous Epith Cells Urine Bacteria Hyaline Casts Urine Osmolality Influenza Typ A,B (EIA) Ur L.pneumophila Ag Negative 04/14/18 04/14/18 04/14/18 06:07 06:07 06:07 WBC RBC Hgb Hct MCV MCH MCHC RDW Plt Count MPV Neut % (Auto) Lymph % (Auto) [place] % (Auto) Eos % (Auto) Baso % (Auto) Neut # (Auto) Lymph # (Auto) [place] # (Auto) Eos # (Auto) Baso # (Auto) Neutrophils % (Manual) Band Neutrophils % Lymphocytes % (Manual) Reactive Lymphs % Monocytes % (Manual) Metamyelocytes % Myelocytes % Toxic Granulation Dohle Bodies Platelet Estimate RBC Morphology Puncture Site pCO2 pO2 HCO3 ABG pH ABG Total CO2 ABG O2 Saturation ABG Base Excess [place] Test ABG Potassium Glucose Lactate Sodium 125 L Potassium 3.3 L Chloride 95 L Carbon Dioxide 20 L Anion Gap 14 BUN 13 Creatinine 0.7 L Est GFR ( Amer) > 60 Est GFR (Non-Af Amer) > 60 Random Glucose 100 D Lactic Acid Calcium 7.4 L Phosphorus 3.1 Magnesium 1.2 L Total Bilirubin 1.6 H AST 95 H D ALT 98 H D Alkaline Phosphatase 83 Total Creatine Kinase Troponin I NT-Pro-B Natriuret Pep Total Protein 6.2 L Albumin 3.3 L D Globulin 2.9 Albumin/Globulin Ratio 1.1 Lipase Free T4 2.01 TSH 3rd Generation 1.42 Arterial Blood Potassium Urine Color Urine Clarity Urine pH Ur Specific [place] Urine Protein Urine Glucose (UA) Urine Ketones Urine Blood Urine Nitrate Urine Bilirubin Urine Urobilinogen Ur Leukocyte Esterase Urine WBC (Auto) Urine RBC (Auto) Ur Squamous Epith Cells Urine Bacteria Hyaline Casts Urine Osmolality 745 Influenza Typ A,B (EIA) Ur L.pneumophila Ag 04/14/18 06:07 WBC 9.5 RBC 4.49 Hgb 13.2 Hct 39.3 MCV 87.4 MCH 29.3 MCHC 33.5 RDW 13.7 Plt Count 148 MPV 10.0 Neut % (Auto) 94.9 H Lymph % (Auto) 2.1 L [place] % (Auto) 0.9 Eos % (Auto) 1.9 Baso % (Auto) 0.2 Neut # (Auto) 9.0 H Lymph # (Auto) 0.2 L [place] # (Auto) 0.1 Eos # (Auto) 0.2 Baso # (Auto) 0.0 Neutrophils % (Manual) 60 Band Neutrophils % 30 H* Lymphocytes % (Manual) 2 L Reactive Lymphs % 1 H Monocytes % (Manual) 2 Metamyelocytes % 2 H Myelocytes % 3 H Toxic Granulation Present Dohle Bodies Present Platelet Estimate Normal RBC Morphology Normal Puncture Site pCO2 pO2 HCO3 ABG pH ABG Total CO2 ABG O2 Saturation ABG Base Excess [place] Test ABG Potassium Glucose Lactate Sodium Potassium Chloride Carbon Dioxide Anion Gap BUN Creatinine Est GFR ( Amer) Est GFR (Non-Af Amer) Random Glucose Lactic Acid Calcium Phosphorus Magnesium Total Bilirubin AST ALT Alkaline Phosphatase Total Creatine Kinase Troponin I NT-Pro-B Natriuret Pep Total Protein Albumin Globulin Albumin/Globulin Ratio Lipase Free T4 TSH 3rd Generation Arterial Blood Potassium Urine Color Urine Clarity Urine pH Ur Specific [place] Urine Protein Urine Glucose (UA) Urine Ketones Urine Blood Urine Nitrate Urine Bilirubin Urine Urobilinogen Ur Leukocyte Esterase Urine WBC (Auto) Urine RBC (Auto) Ur Squamous Epith Cells Urine Bacteria Hyaline Casts Urine Osmolality Influenza Typ A,B (EIA) Ur L.pneumophila Ag Radiology Impressions: Radiology Impressions Abdomen Obstructive Series X-ray 04/13/18 20:52 IMPRESSION: Right basal and right mid lung zone consolidations asymmetrically elevated right hemidiaphragm with blending right pleural effusion. The few the right effusion appears slightly loculated extending to the right lung apex chronic pleural thickening can simulate this. The mid right lung zone airspace opacity may in part be pleural fluid-with additional surrounding atelectasis and or infiltrate here. This continues to the right hilum-a concomitant right hilar soft tissue mass needs to be considered and excluded as if possible. Gastric distension-gastric paresis and/or gastric outlet obstruction needs to be considered. This exerts some mass effect on and displacement on the transverse colon.. No intrinsic small or large bowel obstruction appreciated. Right colon stool retention can be seen with constipation. Other findings as above. Comments: Study marked for PA review . Chest/Abdomen/Pelvis CT 04/13/18 21:18 Impression: Extensive right lung consolidation suggestive for pneumonia. Post treatment interval follow-up is recommended to ensure resolution and exclude additional etiology. Clinical correlation. Small right pleural effusion. Hepatomegaly with associated diffuse hepatic steatosis. Two low-attenuation foci within the liver as described. Clinical correlation. Nonspecific bilateral perinephric fat stranding. Though nonspecific, these findings can sometimes be consistent with pyelonephritis. Clinical correlation. Distended stomach with fluid and gas. Clinical correlation. Gallbladder is grossly preserved. There may be some sludge within the gallbladder. This may be better evaluated with ultrasound if clinically indicated. Additional findings as above. A preliminary report was generated at 10:36 p.m. on 04/13/[address] Jaya patel from [facility]. EKG/Cardiology Studies: Cardiology / EKG Studies 04/13/18 20:42 ELECTROCARDIOGRAM Stat Comment: bed6 Mode Of Transportation: BED Reason For Exam: tachycardic Critical Care Progress Note - Nutrition Nutrition: Nutrition Category Date Time Status Regular Diet [DIET] Diets 04/14/18 Breakfast Active Assessment/Plan - Assessment and Plan (Free Text) Plan: 43 year old male with no pmhx presenting to ED with RLQ abdominal pain, fever and chills since last , constipated x 3 days, code sepsis, elevated WBC, bandemia, elevated lactate, CT shows Rt lung consolidation, most likely due to PNA. 04/14 feeling better this morning, with wbc trending down , improving lac tenorio levels. Neuro AAO x3, no acute problems Pulm acute hypoxic resp failure CT on admission - R lung pneumonic consolidation, small pleural effusion, hepatomegaly continue high flow O2 with humidified air Duonebs Q4H abx chest PT, incentive spirometer Cardio tachycardia continue to monitor GI senokot bid for constipation Regular diet abd U/S - echogenic liver- may be seen of hepatic parenchymal disease or fatty inflitration, right sided pleural effusion. monitor BM Renal FAB, elevated cr continue LR @ 100 cc monitor urine output low potassium - KCL 20 meq x 1 Heme WBC improving today, bands from 45 to 30 H/H stable ID code sepsis WBC 15.4, Band 47, lact 3.7 today WBC 9.5, bands 30, lac 2.4 afebrile today on Ceftrixone and azithromycin Legionella, flu - negative Bcx pending, Ucx prelim no growth - continue to follow up PPX DVT: lovenox GI: protonix Multivit, thiamine, Folic acid Plan discussed with Dr Juan Carlos Tate, PGY-1 - Date & Time Date: 04/14/18 Time: 10:45 <Ulises Rangel - Last Filed: 04/14/18 18:28> CCU Objective - Vital Signs / Intake & Output Vital Signs (Last 4 hours): Vital Signs Temp Pulse Resp BP Pulse Ox 04/14/18 17:01 143 H 25 H 145/89 94 L 04/14/18 17:00 142 H 37 H 89 L 04/14/18 16:15 28 H 04/14/18 16:13 133 H 36 H 147/92 H 97 04/14/18 16:02 129 H 11 L 157/100 H 97 04/14/18 16:00 101.7 F H 127 H 32 H 147/92 H 93 L 04/14/18 15:00 125 H 39 H 125/79 95 Intake and Output (Last 8hrs): Intake & Output 04/14/18 04/14/18 04/14/18 06:59 14:59 22:59 Intake Total 1860 1802 1212 Output Total 1200 425 230 Balance 660 1377 982 Weight 207 lb 3.752 oz Intake: IV 1000 Intake, IV Amount 800 1322 572 Right Antecubital 800 950 400 Right Distal Port 372 172 Antecubital Oral 60 480 640 Output: Urine 1200 425 230 Urine, Voided 1200 425 230 Other: Voiding Method Urinal # Voids Urine, Voided 1 1 1 # Bowel Movements 1 1 - Medications Active Medications: Active Medications Generic Name Dose Route Start Last Admin Trade Name Freq PRN Reason Stop Dose Admin Albuterol/Ipratropium 3 ml 04/14/18 04:00 04/14/18 16:15 Duoneb 3 Mg/0.5 Mg (3 Ml) Ud INH 3 ml RQ4 JESUS Administration Enoxaparin Sodium 40 mg 04/14/18 10:00 04/14/18 10:28 Lovenox SC 40 mg DAILY JESUS Administration Folic Acid 1 mg 04/14/18 10:00 04/14/18 10:29 Folic Acid PO 1 mg DAILY JESUS Administration Lactated Ringer's 1,000 mls @ 100 mls/hr 04/14/18 00:15 04/14/18 15:41 Lactated Ringer's IV 100 mls/hr .Q10H JESUS Administration Ceftriaxone Sodium 1 gm/ 100 mls @ 100 mls/hr 04/14/18 05:00 04/14/18 17:06 Sodium Chloride IVPB 100 mls/hr Q12H JESUS Administration Protocol Azithromycin 500 mg/ Sodium 250 mls @ 250 mls/hr 04/14/18 00:11 04/14/18 10:12 Chloride IVPB 250 mls/hr DAILY JESUS Administration Protocol Multivitamins 1 tab 04/14/18 10:00 04/14/18 10:29 Hexavitamin PO 1 tab DAILY JESUS Administration Pantoprazole Sodium 40 mg 04/14/18 10:00 04/14/18 10:30 Protonix Inj IVP 40 mg DAILY JESUS Administration Sennosides 8.6 mg 04/14/18 00:15 04/14/18 17:21 Senokot Tab PO Not Given BID JESUS Thiamine HCl 100 mg 04/14/18 10:00 04/14/18 10:29 Vitamin B1 Tab PO 100 mg DAILY JESUS Administration - Patient Studies Lab Studies: Microbiology Studies 04/13/18 20:48 Urine Culture - Preliminary Urine Random No growth. Lab Studies 04/14/18 04/14/18 04/14/18 Range/Units 06:07 06:07 06:07 WBC 9.5 (4.8-10.8) K/uL RBC 4.49 (4.40-5.90) Mil/uL Hgb 13.2 (12.0-18.0) g/dL Hct 39.3 (35.0-51.0) % MCV 87.4 (80.0-94.0) fL MCH 29.3 (27.0-31.0) pg MCHC 33.5 (33.0-37.0) g/dL RDW 13.7 (11.5-14.5) % Plt Count 148 (130-400) K/uL MPV 10.0 (7.2-11.7) fL Neut % (Auto) 94.9 H (50.0-75.0) % Lymph % (Auto) 2.1 L (20.0-40.0) % Alcorn % (Auto) 0.9 (0.0-10.0) % Eos % (Auto) 1.9 (0.0-4.0) % Baso % (Auto) 0.2 (0.0-2.0) % Neut # (Auto) 9.0 H (1.8-7.0) K/uL Lymph # (Auto) 0.2 L (1.0-4.3) K/uL [place] # (Auto) 0.1 (0.0-0.8) K/uL Eos # (Auto) 0.2 (0.0-0.7) K/uL Baso # (Auto) 0.0 (0.0-0.2) K/uL Neutrophils % (Manual) 60 (50-75) % Band Neutrophils % 30 H* (0-2) % Lymphocytes % (Manual) 2 L (20-40) % Reactive Lymphs % 1 H (0-0) % Monocytes % (Manual) 2 (0-10) % Metamyelocytes % 2 H (0-0) % Myelocytes % 3 H (0-0) % Toxic Granulation Present Dohle Bodies Present Platelet Estimate Normal (NORMAL) RBC Morphology Normal Puncture Site pCO2 (35-45) mm/Hg pO2 (80-100) mm/Hg HCO3 (21-28) mmol/L ABG pH (7.35-7.45) ABG Total CO2 (22-28) mmol/L ABG O2 Saturation (95-98) % ABG Base Excess (-2.0-3.0) mmol/L [place] Test ABG Potassium (3.6-5.2) mmol/L Glucose (75-110) mg/dl Lactate (0.7-2.1) mmol/L Sodium 125 L (132-148) mmol/L Potassium 3.3 L (3.6-5.2) mmol/L Chloride 95 L (98-107) mmol/L Carbon Dioxide 20 L (22-30) mmol/L Anion Gap 14 (10-20) BUN 13 (9-20) mg/dL Creatinine 0.7 L (0.8-1.5) mg/dL Est GFR ( Amer) > 60 Est GFR (Non-Af Amer) > 60 Random Glucose 100 D (75-110) mg/dL Lactic Acid (0.7-2.1) mmol/L Calcium 7.4 L (8.6-10.4) mg/dl Phosphorus 3.1 (2.5-4.5) mg/dL Magnesium 1.2 L (1.6-2.3) mg/dL Total Bilirubin 1.6 H (0.2-1.3) mg/dL AST 95 H D (17-59) U/L ALT 98 H D (21-72) U/L Alkaline Phosphatase 83 (38-126) U/L Total Creatine Kinase (55-170) U/L Troponin I (0.00-0.120) ng/mL NT-Pro-B Natriuret Pep (0-450) pg/mL Total Protein 6.2 L (6.3-8.3) g/dL Albumin 3.3 L D (3.5-5.0) g/dL Globulin 2.9 (2.2-3.9) gm/dL Albumin/Globulin Ratio 1.1 (1.0-2.1) Lipase (23-300) U/L Free T4 2.01 (0.78-2.19) ng/dL TSH 3rd Generation 1.42 (0.46-4.68) mIU/L Arterial Blood Potassium (3.6-5.2) mmol/L Urine Color (YELLOW) Urine Clarity (Clear) Urine pH (5.0-8.0) Ur Specific [place] (1.003-1.030) Urine Protein (NEGATIVE) mg/dL Urine Glucose (UA) (Normal) mg/dL Urine Ketones (NEGATIVE) mg/dL Urine Blood (NEGATIVE) Urine Nitrate (NEGATIVE) Urine Bilirubin (NEGATIVE) Urine Urobilinogen (0.2-1.0) mg/dL Ur Leukocyte Esterase (Negative) Martine/uL Urine WBC (Auto) (0-5) /hpf Urine RBC (Auto) (0-3) /hpf Ur Squamous Epith Cells (0-5) /hpf Urine Bacteria (<OCC) Hyaline Casts (0-2) /lpf Urine Osmolality (300-1000) mosm/kg Influenza Typ A,B (EIA) (NEGATIVE) Ur L.pneumophila Ag (NEGATIVE) 04/14/18 04/14/18 04/13/18 Range/Units 06:07 00:32 22:46 WBC (4.8-10.8) K/uL RBC (4.40-5.90) Mil/uL Hgb (12.0-18.0) g/dL Hct (35.0-51.0) % MCV (80.0-94.0) fL MCH (27.0-31.0) pg MCHC (33.0-37.0) g/dL RDW (11.5-14.5) % Plt Count (130-400) K/uL MPV (7.2-11.7) fL Neut % (Auto) (50.0-75.0) % Lymph % (Auto) (20.0-40.0) % [place]corn % (Auto) (0.0-10.0) % Eos % (Auto) (0.0-4.0) % Baso % (Auto) (0.0-2.0) % Neut # (Auto) (1.8-7.0) K/uL Lymph # (Auto) (1.0-4.3) K/uL Alcorn # (Auto) (0.0-0.8) K/uL Eos # (Auto) (0.0-0.7) K/uL Baso # (Auto) (0.0-0.2) K/uL Neutrophils % (Manual) (50-75) % Band Neutrophils % (0-2) % Lymphocytes % (Manual) (20-40) % Reactive Lymphs % (0-0) % Monocytes % (Manual) (0-10) % Metamyelocytes % (0-0) % Myelocytes % (0-0) % Toxic Granulation Dohle Bodies Platelet Estimate (NORMAL) RBC Morphology Puncture Site pCO2 (35-45) mm/Hg pO2 (80-100) mm/Hg HCO3 (21-28) mmol/L ABG pH (7.35-7.45) ABG Total CO2 (22-28) mmol/L ABG O2 Saturation (95-98) % ABG Base Excess (-2.0-3.0) mmol/L [place] Test ABG Potassium (3.6-5.2) mmol/L Glucose (75-110) mg/dl Lactate (0.7-2.1) mmol/L Sodium (132-148) mmol/L Potassium (3.6-5.2) mmol/L Chloride (98-107) mmol/L Carbon Dioxide (22-30) mmol/L Anion Gap (10-20) BUN (9-20) mg/dL Creatinine (0.8-1.5) mg/dL Est GFR ( Amer) Est GFR (Non-Af Amer) Random Glucose (75-110) mg/dL Lactic Acid 2.4 H (0.7-2.1) mmol/L Calcium (8.6-10.4) mg/dl Phosphorus (2.5-4.5) mg/dL Magnesium (1.6-2.3) mg/dL Total Bilirubin (0.2-1.3) mg/dL AST (17-59) U/L ALT (21-72) U/L Alkaline Phosphatase (38-126) U/L Total Creatine Kinase (55-170) U/L Troponin I (0.00-0.120) ng/mL NT-Pro-B Natriuret Pep (0-450) pg/mL Total Protein (6.3-8.3) g/dL Albumin (3.5-5.0) g/dL Globulin (2.2-3.9) gm/dL Albumin/Globulin Ratio (1.0-2.1) Lipase (23-300) U/L Free T4 (0.78-2.19) ng/dL TSH 3rd Generation (0.46-4.68) mIU/L Arterial Blood Potassium (3.6-5.2) mmol/L Urine Color (YELLOW) Urine Clarity (Clear) Urine pH (5.0-8.0) Ur Specific [place] (1.003-1.030) Urine Protein (NEGATIVE) mg/dL Urine Glucose (UA) (Normal) mg/dL Urine Ketones (NEGATIVE) mg/dL Urine Blood (NEGATIVE) Urine Nitrate (NEGATIVE) Urine Bilirubin (NEGATIVE) Urine Urobilinogen (0.2-1.0) mg/dL Ur Leukocyte Esterase (Negative) Martine/uL Urine WBC (Auto) (0-5) /hpf Urine RBC (Auto) (0-3) /hpf Ur Squamous Epith Cells (0-5) /hpf Urine Bacteria (<OCC) Hyaline Casts (0-2) /lpf Urine Osmolality 745 (300-1000) mosm/kg Influenza Typ A,B (EIA) (NEGATIVE) Ur L.pneumophila Ag Negative (NEGATIVE) 04/13/18 04/13/18 04/13/18 Range/Units 22:40 22:40 22:25 WBC (4.8-10.8) K/uL RBC (4.40-5.90) Mil/uL Hgb (12.0-18.0) g/dL Hct (35.0-51.0) % MCV (80.0-94.0) fL MCH (27.0-31.0) pg MCHC (33.0-37.0) g/dL RDW (11.5-14.5) % Plt Count (130-400) K/uL MPV (7.2-11.7) fL Neut % (Auto) (50.0-75.0) % Lymph % (Auto) (20.0-40.0) % [place]corn % (Auto) (0.0-10.0) % Eos % (Auto) (0.0-4.0) % Baso % (Auto) (0.0-2.0) % Neut # (Auto) (1.8-7.0) K/uL Lymph # (Auto) (1.0-4.3) K/uL [place] # (Auto) (0.0-0.8) K/uL Eos # (Auto) (0.0-0.7) K/uL Baso # (Auto) (0.0-0.2) K/uL Neutrophils % (Manual) (50-75) % Band Neutrophils % (0-2) % Lymphocytes % (Manual) (20-40) % Reactive Lymphs % (0-0) % Monocytes % (Manual) (0-10) % Metamyelocytes % (0-0) % Myelocytes % (0-0) % Toxic Granulation Dohle Bodies Platelet Estimate (NORMAL) RBC Morphology Puncture Site pCO2 (35-45) mm/Hg pO2 (80-100) mm/Hg HCO3 (21-28) mmol/L ABG pH (7.35-7.45) ABG Total CO2 (22-28) mmol/L ABG O2 Saturation (95-98) % ABG Base Excess (-2.0-3.0) mmol/L [place] Test ABG Potassium (3.6-5.2) mmol/L Glucose (75-110) mg/dl Lactate (0.7-2.1) mmol/L Sodium 124 L (132-148) mmol/L Potassium 3.2 L (3.6-5.2) mmol/L Chloride 91 L (98-107) mmol/L Carbon Dioxide 22 (22-30) mmol/L Anion Gap 14 (10-20) BUN 15 (9-20) mg/dL Creatinine 1.5 (0.8-1.5) mg/dL Est GFR ( Amer) > 60 Est GFR (Non-Af Amer) 51 Random Glucose 159 H D (75-110) mg/dL Lactic Acid (0.7-2.1) mmol/L Calcium 7.5 L (8.6-10.4) mg/dl Phosphorus (2.5-4.5) mg/dL Magnesium (1.6-2.3) mg/dL Total Bilirubin (0.2-1.3) mg/dL AST (17-59) U/L ALT (21-72) U/L Alkaline Phosphatase (38-126) U/L Total Creatine Kinase 165 (55-170) U/L Troponin I < 0.0120 (0.00-0.120) ng/mL NT-Pro-B Natriuret Pep 1720 H (0-450) pg/mL Total Protein (6.3-8.3) g/dL Albumin (3.5-5.0) g/dL Globulin (2.2-3.9) gm/dL Albumin/Globulin Ratio (1.0-2.1) Lipase (23-300) U/L Free T4 (0.78-2.19) ng/dL TSH 3rd Generation (0.46-4.68) mIU/L Arterial Blood Potassium (3.6-5.2) mmol/L Urine Color (YELLOW) Urine Clarity (Clear) Urine pH (5.0-8.0) Ur Specific [place] (1.003-1.030) Urine Protein (NEGATIVE) mg/dL Urine Glucose (UA) (Normal) mg/dL Urine Ketones (NEGATIVE) mg/dL Urine Blood (NEGATIVE) Urine Nitrate (NEGATIVE) Urine Bilirubin (NEGATIVE) Urine Urobilinogen (0.2-1.0) mg/dL Ur Leukocyte Esterase (Negative) Martine/uL Urine WBC (Auto) (0-5) /hpf Urine RBC (Auto) (0-3) /hpf Ur Squamous Epith Cells (0-5) /hpf Urine Bacteria (<OCC) Hyaline Casts (0-2) /lpf Urine Osmolality (300-1000) mosm/kg Influenza Typ A,B (EIA) Negative for flu a/b (NEGATIVE) Ur L.pneumophila Ag (NEGATIVE) 04/13/18 04/13/18 04/13/18 Range/Units 22:00 20:55 20:55 WBC 15.4 H (4.8-10.8) K/uL RBC 4.81 (4.40-5.90) Mil/uL Hgb 14.0 (12.0-18.0) g/dL Hct 41.8 (35.0-51.0) % MCV 86.9 (80.0-94.0) fL MCH 29.1 (27.0-31.0) pg MCHC 33.4 (33.0-37.0) g/dL RDW 13.6 (11.5-14.5) % Plt Count 174 (130-400) K/uL MPV 9.2 (7.2-11.7) fL Neut % (Auto) 97.4 H (50.0-75.0) % Lymph % (Auto) 0.7 L (20.0-40.0) % [place] % (Auto) 1.3 (0.0-10.0) % Eos % (Auto) 0.3 (0.0-4.0) % Baso % (Auto) 0.3 (0.0-2.0) % Neut # (Auto) 15.0 H (1.8-7.0) K/uL Lymph # (Auto) 0.1 L (1.0-4.3) K/uL [place] # (Auto) 0.2 (0.0-0.8) K/uL Eos # (Auto) 0.0 (0.0-0.7) K/uL Baso # (Auto) 0.0 (0.0-0.2) K/uL Neutrophils % (Manual) 47 L (50-75) % Band Neutrophils % 47 H* (0-2) % Lymphocytes % (Manual) 2 L (20-40) % Reactive Lymphs % (0-0) % Monocytes % (Manual) 4 (0-10) % Metamyelocytes % (0-0) % Myelocytes % (0-0) % Toxic Granulation Dohle Bodies Platelet Estimate Normal (NORMAL) RBC Morphology Puncture Site Rr pCO2 32 L (35-45) mm/Hg pO2 46 L (80-100) mm/Hg HCO3 20.9 L (21-28) mmol/L ABG pH 7.39 (7.35-7.45) ABG Total CO2 20.4 L (22-28) mmol/L ABG O2 Saturation 86.7 L (95-98) % ABG Base Excess -4.6 L (-2.0-3.0) mmol/L [place] Test Yes ABG Potassium 3.3 L (3.6-5.2) mmol/L Glucose 165 H (75-110) mg/dl Lactate 3.7 H (0.7-2.1) mmol/L Sodium 126.0 L 123 L (132-148) mmol/L Potassium 3.4 L (3.6-5.2) mmol/L Chloride 91.0 L 87 L (98-107) mmol/L Carbon Dioxide 21 L (22-30) mmol/L Anion Gap 18 (10-20) BUN 16 (9-20) mg/dL Creatinine 2.1 H (0.8-1.5) mg/dL Est GFR ( Amer) 42 Est GFR (Non-Af Amer) 34 Random Glucose 199 H (75-110) mg/dL Lactic Acid (0.7-2.1) mmol/L Calcium 8.6 (8.6-10.4) mg/dl Phosphorus (2.5-4.5) mg/dL Magnesium (1.6-2.3) mg/dL Total Bilirubin 1.5 H (0.2-1.3) mg/dL AST 127 H (17-59) U/L ALT 132 H (21-72) U/L Alkaline Phosphatase 122 (38-126) U/L Total Creatine Kinase (55-170) U/L Troponin I (0.00-0.120) ng/mL NT-Pro-B Natriuret Pep (0-450) pg/mL Total Protein 7.4 (6.3-8.3) g/dL Albumin 4.2 (3.5-5.0) g/dL Globulin 3.2 (2.2-3.9) gm/dL Albumin/Globulin Ratio 1.3 (1.0-2.1) Lipase 13 L (23-300) U/L Free T4 (0.78-2.19) ng/dL TSH 3rd Generation (0.46-4.68) mIU/L Arterial Blood Potassium 3.3 L (3.6-5.2) mmol/L Urine Color (YELLOW) Urine Clarity (Clear) Urine pH (5.0-8.0) Ur Specific [place] (1.003-1.030) Urine Protein (NEGATIVE) mg/dL Urine Glucose (UA) (Normal) mg/dL Urine Ketones (NEGATIVE) mg/dL Urine Blood (NEGATIVE) Urine Nitrate (NEGATIVE) Urine Bilirubin (NEGATIVE) Urine Urobilinogen (0.2-1.0) mg/dL Ur Leukocyte Esterase (Negative) Martine/uL Urine WBC (Auto) (0-5) /hpf Urine RBC (Auto) (0-3) /hpf Ur Squamous Epith Cells (0-5) /hpf Urine Bacteria (<OCC) Hyaline Casts (0-2) /lpf Urine Osmolality (300-1000) mosm/kg Influenza Typ A,B (EIA) (NEGATIVE) Ur L.pneumophila Ag (NEGATIVE) 04/13/18 Range/Units 20:48 WBC (4.8-10.8) K/uL RBC (4.40-5.90) Mil/uL Hgb (12.0-18.0) g/dL Hct (35.0-51.0) % MCV (80.0-94.0) fL MCH (27.0-31.0) pg MCHC (33.0-37.0) g/dL RDW (11.5-14.5) % Plt Count (130-400) K/uL MPV (7.2-11.7) fL Neut % (Auto) (50.0-75.0) % Lymph % (Auto) (20.0-40.0) % [place] % (Auto) (0.0-10.0) % Eos % (Auto) (0.0-4.0) % Baso % (Auto) (0.0-2.0) % Neut # (Auto) (1.8-7.0) K/uL Lymph # (Auto) (1.0-4.3) K/uL [place] # (Auto) (0.0-0.8) K/uL Eos # (Auto) (0.0-0.7) K/uL Baso # (Auto) (0.0-0.2) K/uL Neutrophils % (Manual) (50-75) % Band Neutrophils % (0-2) % Lymphocytes % (Manual) (20-40) % Reactive Lymphs % (0-0) % Monocytes % (Manual) (0-10) % Metamyelocytes % (0-0) % Myelocytes % (0-0) % Toxic Granulation Dohle Bodies Platelet Estimate (NORMAL) RBC Morphology Puncture Site pCO2 (35-45) mm/Hg pO2 (80-100) mm/Hg HCO3 (21-28) mmol/L ABG pH (7.35-7.45) ABG Total CO2 (22-28) mmol/L ABG O2 Saturation (95-98) % ABG Base Excess (-2.0-3.0) mmol/L [place] Test ABG Potassium (3.6-5.2) mmol/L Glucose (75-110) mg/dl Lactate (0.7-2.1) mmol/L Sodium (132-148) mmol/L Potassium (3.6-5.2) mmol/L Chloride (98-107) mmol/L Carbon Dioxide (22-30) mmol/L Anion Gap (10-20) BUN (9-20) mg/dL Creatinine (0.8-1.5) mg/dL Est GFR ( Amer) Est GFR (Non-Af Amer) Random Glucose (75-110) mg/dL Lactic Acid (0.7-2.1) mmol/L Calcium (8.6-10.4) mg/dl Phosphorus (2.5-4.5) mg/dL Magnesium (1.6-2.3) mg/dL Total Bilirubin (0.2-1.3) mg/dL AST (17-59) U/L ALT (21-72) U/L Alkaline Phosphatase (38-126) U/L Total Creatine Kinase (55-170) U/L Troponin I (0.00-0.120) ng/mL NT-Pro-B Natriuret Pep (0-450) pg/mL Total Protein (6.3-8.3) g/dL Albumin (3.5-5.0) g/dL Globulin (2.2-3.9) gm/dL Albumin/Globulin Ratio (1.0-2.1) Lipase (23-300) U/L Free T4 (0.78-2.19) ng/dL TSH 3rd Generation (0.46-4.68) mIU/L Arterial Blood Potassium (3.6-5.2) mmol/L Urine Color [place] (YELLOW) Urine Clarity Hazy (Clear) Urine pH 5.0 (5.0-8.0) Ur Specific [place] 1.023 (1.003-1.030) Urine Protein 2+ H (NEGATIVE) mg/dL Urine Glucose (UA) Normal (Normal) mg/dL Urine Ketones Negative (NEGATIVE) mg/dL Urine Blood 1+ H (NEGATIVE) Urine Nitrate Negative (NEGATIVE) Urine Bilirubin 1+ H (NEGATIVE) Urine Urobilinogen 4.0 (0.2-1.0) mg/dL Ur Leukocyte Esterase Neg (Negative) Martine/uL Urine WBC (Auto) 11 H (0-5) /hpf Urine RBC (Auto) 5 H (0-3) /hpf Ur Squamous Epith Cells 4 (0-5) /hpf Urine Bacteria Rare (<OCC) Hyaline Casts >20 H (0-2) /lpf Urine Osmolality (300-1000) mosm/kg Influenza Typ A,B (EIA) (NEGATIVE) Ur L.pneumophila Ag (NEGATIVE) Laboratory Results - last 24 hr 04/13/18 04/13/18 04/13/18 20:48 20:55 20:55 WBC 15.4 H RBC 4.81 Hgb 14.0 Hct 41.8 MCV 86.9 MCH 29.1 MCHC 33.4 RDW 13.6 Plt Count 174 MPV 9.2 Neut % (Auto) 97.4 H Lymph % (Auto) 0.7 L [place] % (Auto) 1.3 Eos % (Auto) 0.3 Baso % (Auto) 0.3 Neut # (Auto) 15.0 H Lymph # (Auto) 0.1 L [place] # (Auto) 0.2 Eos # (Auto) 0.0 Baso # (Auto) 0.0 Neutrophils % (Manual) 47 L Band Neutrophils % 47 H* Lymphocytes % (Manual) 2 L Reactive Lymphs % Monocytes % (Manual) 4 Metamyelocytes % Myelocytes % Toxic Granulation Dohle Bodies Platelet Estimate Normal RBC Morphology Puncture Site pCO2 pO2 HCO3 ABG pH ABG Total CO2 ABG O2 Saturation ABG Base Excess [place] Test ABG Potassium Glucose Lactate Sodium 123 L Potassium 3.4 L Chloride 87 L Carbon Dioxide 21 L Anion Gap 18 BUN 16 Creatinine 2.1 H Est GFR ( Amer) 42 Est GFR (Non-Af Amer) 34 Random Glucose 199 H Lactic Acid Calcium 8.6 Phosphorus Magnesium Total Bilirubin 1.5 H AST 127 H ALT 132 H Alkaline Phosphatase 122 Total Creatine Kinase Troponin I NT-Pro-B Natriuret Pep Total Protein 7.4 Albumin 4.2 Globulin 3.2 Albumin/Globulin Ratio 1.3 Lipase 13 L Free T4 TSH 3rd Generation Arterial Blood Potassium Urine Color [place] Urine Clarity Hazy Urine pH 5.0 Ur Specific [place] 1.023 Urine Protein 2+ H Urine Glucose (UA) Normal Urine Ketones Negative Urine Blood 1+ H Urine Nitrate Negative Urine Bilirubin 1+ H Urine Urobilinogen 4.0 Ur Leukocyte Esterase Neg Urine WBC (Auto) 11 H Urine RBC (Auto) 5 H Ur Squamous Epith Cells 4 Urine Bacteria Rare Hyaline Casts >20 H Urine Osmolality Influenza Typ A,B (EIA) Ur L.pneumophila Ag 04/13/18 04/13/18 04/13/18 22:00 22:25 22:40 WBC RBC Hgb Hct MCV MCH MCHC RDW Plt Count MPV Neut % (Auto) Lymph % (Auto) [place] % (Auto) Eos % (Auto) Baso % (Auto) Neut # (Auto) Lymph # (Auto) [place] # (Auto) Eos # (Auto) Baso # (Auto) Neutrophils % (Manual) Band Neutrophils % Lymphocytes % (Manual) Reactive Lymphs % Monocytes % (Manual) Metamyelocytes % Myelocytes % Toxic Granulation Dohle Bodies Platelet Estimate RBC Morphology Puncture Site Rr pCO2 32 L pO2 46 L HCO3 20.9 L ABG pH 7.39 ABG Total CO2 20.4 L ABG O2 Saturation 86.7 L ABG Base Excess -4.6 L [place] Test Yes ABG Potassium 3.3 L Glucose 165 H Lactate 3.7 H Sodium 126.0 L Potassium Chloride 91.0 L Carbon Dioxide Anion Gap BUN Creatinine Est GFR ( Amer) Est GFR (Non-Af Amer) Random Glucose Lactic Acid Calcium Phosphorus Magnesium Total Bilirubin AST ALT Alkaline Phosphatase Total Creatine Kinase 165 Troponin I < 0.0120 NT-Pro-B Natriuret Pep 1720 H Total Protein Albumin Globulin Albumin/Globulin Ratio Lipase Free T4 TSH 3rd Generation Arterial Blood Potassium 3.3 L Urine Color Urine Clarity Urine pH Ur Specific [place] Urine Protein Urine Glucose (UA) Urine Ketones Urine Blood Urine Nitrate Urine Bilirubin Urine Urobilinogen Ur Leukocyte Esterase Urine WBC (Auto) Urine RBC (Auto) Ur Squamous Epith Cells Urine Bacteria Hyaline Casts Urine Osmolality Influenza Typ A,B (EIA) Negative for flu a/b Ur L.pneumophila Ag 04/13/18 04/13/18 04/14/18 22:40 22:46 00:32 WBC RBC Hgb Hct MCV MCH MCHC RDW Plt Count MPV Neut % (Auto) Lymph % (Auto) [place] % (Auto) Eos % (Auto) Baso % (Auto) Neut # (Auto) Lymph # (Auto) [place] # (Auto) Eos # (Auto) Baso # (Auto) Neutrophils % (Manual) Band Neutrophils % Lymphocytes % (Manual) Reactive Lymphs % Monocytes % (Manual) Metamyelocytes % Myelocytes % Toxic Granulation Dohle Bodies Platelet Estimate RBC Morphology Puncture Site pCO2 pO2 HCO3 ABG pH ABG Total CO2 ABG O2 Saturation ABG Base Excess [place] Test ABG Potassium Glucose Lactate Sodium 124 L Potassium 3.2 L Chloride 91 L Carbon Dioxide 22 Anion Gap 14 BUN 15 Creatinine 1.5 Est GFR ( Amer) > 60 Est GFR (Non-Af Amer) 51 Random Glucose 159 H D Lactic Acid 2.4 H Calcium 7.5 L Phosphorus Magnesium Total Bilirubin AST ALT Alkaline Phosphatase Total Creatine Kinase Troponin I NT-Pro-B Natriuret Pep Total Protein Albumin Globulin Albumin/Globulin Ratio Lipase Free T4 TSH 3rd Generation Arterial Blood Potassium Urine Color Urine Clarity Urine pH Ur Specific [place] Urine Protein Urine Glucose (UA) Urine Ketones Urine Blood Urine Nitrate Urine Bilirubin Urine Urobilinogen Ur Leukocyte Esterase Urine WBC (Auto) Urine RBC (Auto) Ur Squamous Epith Cells Urine Bacteria Hyaline Casts Urine Osmolality Influenza Typ A,B (EIA) Ur L.pneumophila Ag Negative 04/14/18 04/14/18 04/14/18 06:07 06:07 06:07 WBC RBC Hgb Hct MCV MCH MCHC RDW Plt Count MPV Neut % (Auto) Lymph % (Auto) [place] % (Auto) Eos % (Auto) Baso % (Auto) Neut # (Auto) Lymph # (Auto) [place] # (Auto) Eos # (Auto) Baso # (Auto) Neutrophils % (Manual) Band Neutrophils % Lymphocytes % (Manual) Reactive Lymphs % Monocytes % (Manual) Metamyelocytes % Myelocytes % Toxic Granulation Dohle Bodies Platelet Estimate RBC Morphology Puncture Site pCO2 pO2 HCO3 ABG pH ABG Total CO2 ABG O2 Saturation ABG Base Excess [place] Test ABG Potassium Glucose Lactate Sodium 125 L Potassium 3.3 L Chloride 95 L Carbon Dioxide 20 L Anion Gap 14 BUN 13 Creatinine 0.7 L Est GFR ( Amer) > 60 Est GFR (Non-Af Amer) > 60 Random Glucose 100 D Lactic Acid Calcium 7.4 L Phosphorus 3.1 Magnesium 1.2 L Total Bilirubin 1.6 H AST 95 H D ALT 98 H D Alkaline Phosphatase 83 Total Creatine Kinase Troponin I NT-Pro-B Natriuret Pep Total Protein 6.2 L Albumin 3.3 L D Globulin 2.9 Albumin/Globulin Ratio 1.1 Lipase Free T4 2.01 TSH 3rd Generation 1.42 Arterial Blood Potassium Urine Color Urine Clarity Urine pH Ur Specific [place] Urine Protein Urine Glucose (UA) Urine Ketones Urine Blood Urine Nitrate Urine Bilirubin Urine Urobilinogen Ur Leukocyte Esterase Urine WBC (Auto) Urine RBC (Auto) Ur Squamous Epith Cells Urine Bacteria Hyaline Casts Urine Osmolality 745 Influenza Typ A,B (EIA) Ur L.pneumophila Ag 04/14/18 06:07 WBC 9.5 RBC 4.49 Hgb 13.2 Hct 39.3 MCV 87.4 MCH 29.3 MCHC 33.5 RDW 13.7 Plt Count 148 MPV 10.0 Neut % (Auto) 94.9 H Lymph % (Auto) 2.1 L [place] % (Auto) 0.9 Eos % (Auto) 1.9 Baso % (Auto) 0.2 Neut # (Auto) 9.0 H Lymph # (Auto) 0.2 L [place] # (Auto) 0.1 Eos # (Auto) 0.2 Baso # (Auto) 0.0 Neutrophils % (Manual) 60 Band Neutrophils % 30 H* Lymphocytes % (Manual) 2 L Reactive Lymphs % 1 H Monocytes % (Manual) 2 Metamyelocytes % 2 H Myelocytes % 3 H Toxic Granulation Present Dohle Bodies Present Platelet Estimate Normal RBC Morphology Normal Puncture Site pCO2 pO2 HCO3 ABG pH ABG Total CO2 ABG O2 Saturation ABG Base Excess [place] Test ABG Potassium Glucose Lactate Sodium Potassium Chloride Carbon Dioxide Anion Gap BUN Creatinine Est GFR ( Amer) Est GFR (Non-Af Amer) Random Glucose Lactic Acid Calcium Phosphorus Magnesium Total Bilirubin AST ALT Alkaline Phosphatase Total Creatine Kinase Troponin I NT-Pro-B Natriuret Pep Total Protein Albumin Globulin Albumin/Globulin Ratio Lipase Free T4 TSH 3rd Generation Arterial Blood Potassium Urine Color Urine Clarity Urine pH Ur Specific [place] Urine Protein Urine Glucose (UA) Urine Ketones Urine Blood Urine Nitrate Urine Bilirubin Urine Urobilinogen Ur Leukocyte Esterase Urine WBC (Auto) Urine RBC (Auto) Ur Squamous Epith Cells Urine Bacteria Hyaline Casts Urine Osmolality Influenza Typ A,B (EIA) Ur L.pneumophila Ag Radiology Impressions: Radiology Impressions Abdomen Obstructive Series X-ray 04/13/18 20:52 IMPRESSION: Right basal and right mid lung zone consolidations asymmetrically elevated right hemidiaphragm with blending right pleural effusion. The few the right effusion appears slightly loculated extending to the right lung apex chronic pleural thickening can simulate this. The mid right lung zone airspace opacity may in part be pleural fluid-with additional surrounding atelectasis and or infiltrate here. This continues to the right hilum-a concomitant right hilar soft tissue mass needs to be considered and excluded as if possible. Gastric distension-gastric paresis and/or gastric outlet obstruction needs to be considered. This exerts some mass effect on and displacement on the transverse colon.. No intrinsic small or large bowel obstruction appreciated. Right colon stool retention can be seen with constipation. Other findings as above. Comments: Study marked for PA review . Chest/Abdomen/Pelvis CT 04/13/18 21:18 Impression: Extensive right lung consolidation suggestive for pneumonia. Post treatment interval follow-up is recommended to ensure resolution and exclude additional etiology. Clinical correlation. Small right pleural effusion. Hepatomegaly with associated diffuse hepatic steatosis. Two low-attenuation foci within the liver as described. Clinical correlation. Nonspecific bilateral perinephric fat stranding. Though nonspecific, these findings can sometimes be consistent with pyelonephritis. Clinical correlation. Distended stomach with fluid and gas. Clinical correlation. Gallbladder is grossly preserved. There may be some sludge within the gallbladder. This may be better evaluated with ultrasound if clinically indicated. Additional findings as above. A preliminary report was generated at 10:36 p.m. on 04/13/[address] Jaya patel from [facility]. Abdomen Ultrasound 04/14/18 08:00 IMPRESSION: Echogenic liver may be seen in setting of hepatic parenchymal disease or fatty infiltration. Incidental note is made of right-sided pleural effusion. EKG/Cardiology Studies: Cardiology / EKG Studies 04/13/18 20:42 ELECTROCARDIOGRAM Stat Comment: bed6 Mode Of Transportation: BED Reason For Exam: tachycardic Critical Care Progress Note - Nutrition Nutrition: Nutrition Category Date Time Status Regular Diet [DIET] Diets 04/14/18 Breakfast Active Attending/Attestation - Attestation I have personally seen and examined this patient.: Yes I have fully participated in the care of the patient.: Yes I have reviewed all pertinent clinical information: Yes Notes (Text): 04/14/18 18:27 Patient seen and examined in the intensive care unit. Case discussed with housestaff in the morning rounds. Continue IV antibiotics for pneumonia Continue high flow oxygen Follow-up culture and sensitivity
--- NOTE | 2018-04-14 12:39 | US ---
HISTORY: RUQ abd pain COMPARISON: None available TECHNIQUE: Sonographic evaluation of the abdomen. FINDINGS: LIVER: Measures 17.0 cm in sagittal dimension. Echogenic liver may be seen in setting of hepatic parenchymal disease or fatty infiltration. No focal hepatic mass identified. The main portal vein appears patent with normal directional flow. No intrahepatic bile duct dilatation. GALLBLADDER: No gallstones. No gallbladder wall thickening. Negative sonographic Calvo's sign as assessed by the product scientist. COMMON BILE DUCT: Measures 4 mm. PANCREAS: Not well visualized. RIGHT KIDNEY: Measures 12.4 x 6.5 x 6.9cm. No obstructing calculus or hydronephrosis identified. LEFT KIDNEY: Measures 13.3 x 6.6 x 6.0cm. No obstructing calculus or hydronephrosis identified. SPLEEN: Measures approximately 13.2 cm. AORTA: Limited views appear unremarkable. IVC: Limited views appear unremarkable. OTHER FINDINGS: Incidental note is made of right pleural effusion. IMPRESSION: Echogenic liver may be seen in setting of hepatic parenchymal disease or fatty infiltration. Incidental note is made of right-sided pleural effusion.
[2018-04-14] MEDS ORDERED: Multivitamin (MVI) 10 ML, Thiamine 100 MG, Folic Acid 1 MG in Sodium Chloride 0.9% 1,00... IV ONE (19:11)
[2018-04-14] MEDS ORDERED: Ipratropium 17 mcg/puff-200 puff/12.5 gm HFA Inh IH SCH (20:00)
[2018-04-14 20:11] LABS: ABG ALLEN TEST PO; ARTERIAL BLOOD GAS HCO3 24.1 mmol/L (21-28); ARTERIAL BLOOD GAS PCO2 34 mm/Hg (35-45); ARTERIAL BLOOD GAS PH 7.43 (7.35-7.45); ARTERIAL BLOOD GAS PO2 270 mm/Hg (80-100); ARTERIAL BLOOD GAS TCO2 23.6 mmol/L (22-28)
[2018-04-14] MEDS: Lactobacillus Acidophilus 500 MU Cap PO SCH (20:15)
--- NOTE | 2018-04-14 20:18 | CP.PCM.PN ---
Subjective - Date & Time of Evaluation Date of Evaluation: 04/14/18 Time of Evaluation: 18:00 - Subjective Subjective: Hospitalist Progress Note Patient was seen and examined at 6:00 PM with the help of ICU Resident Dr. Tate 43 year old male who was admitted on 04/13/18 for evaluation of RLQ abdominal pain with subjective fevers/chills and complaints of nausea and constipation. He was found to have a RML and RLL Pneumonia. Please see Assessment and Plans below for further details. Upon ROS: Dyspnea Abdominal pain with cough that is dry Chest tightness General: AAOX3, In respiratory distress with audible wheezing HEENT: NCA, EOMI, PERRLA, NO lymphadenopathy, NO pharyngeal exudate/erythema, NO thyromegaly Cardio: NS1 and NS2, NO M/R/G Resp: Inspiratory Crackles Right Mid to Lower Lung [place] GI: BSx4, Soft, Central Obesity, NO guarding/rebound tenderness Ext: NO edema, Capillary Refill is 2 seconds, Pulses are strong and equal Neuro: CN II through XII are grossly intact Assessments: 1). Sepsis Secondary to Right Middle and Lower Lobe Pneumonia As seen on CT Chest Suspect possible aspiration due to the history of alcohol use (see below) Azithromycin 500 mg IV Q24H Rocephin 1 gm IV Q24H F/U Blood Culture F/U further recommendations from [facility] 2). Respiratory Distress At time of my exam today, patient appeared to have increased work of breathing Spoke with ICU resident and instructed him to order BiPAP 12/6 FiO2 100% and then to obtain ABG 1 hour after being on BiPAP 3). Bilateral Perinephric Stranding As seen on CT Abdomen/Pelvis On exam there was NO CVA tenderness UA shows NEGATIVE Nitrate, Ketones, and LE However, F/U Urine Culture and doubt that this is Pyelonephritis Patient is already on Rocephin for A/P #1 4). Suspected Alcohol Abuse Patient revealed to me that he drank shots and multiple beers twice a week but told overnight team that he did this 5x per week. Last drink was this past Friday04/10/18: NO signs of withdrawl on exam at this time Could the findings on CT Chest RML/RLL Pneumonia be due to Aspiration even though only unilateral? Bannana Bag once a day @ 100 ml/hour Ativan 1 mg IV Q6H PRN Withdrawl 5). Hyponatremia Could be possible SIADH TSH and T4 are normal F/U morning Cortisol F/U Lipid Panel F/U Urine Osm F/U Urine Na 6). Tachycardia Could this be secondary to the ongoing fever secondary to the pneumonia? F/U EKG Tylenol 650 mg PO Q6H x 4 doses starting tonight despite the elevated LFTs 7). Elevated LFTs and Hepatic Parenchymal Disease (as seen CT Abdomen) Likely secondary to suspected alcohol abuse F/U Hepatitis Panel F/U HIV F/U UDS (will be positive for opiates as he received Morphine while admitted) but check for other substances 8). Hypokalemia ICU Team repleted with KPhos 20 mmol x 1 dose 9). Hypomagnesemia Magnesium Sulfate 1 gm IV x 2 doses 10). Constipation As seen on Obstruction Series Senokot Colace 100 mg PO 3x/day 11). Prophylaxis DVT risk score of 2 based upon Age and diagnosis of Sepsis: Heparin 5,000 Units SC Q8H and Bilateral SCDs NO GI PPX with PPI indicated Lactobacillus PO 2x/day Franki Nguyen D.O. Objective - Vital Signs/Intake and Output Vital Signs (last 24 hours): Temp Pulse Resp BP Pulse Ox 101.1 F H 134 H 19 144/102 H 96 04/14/18 20:10 04/14/18 19:31 04/14/18 19:02 04/14/18 19:02 04/14/18 19:02 Intake and Output: 04/14/18 04/15/18 18:59 06:59 Intake Total 3014 143 Output Total 655 Balance 2359 143 - Medications Medications: Current Medications Acetaminophen (Tylenol 325mg Tab) 650 mg PO Q6H PRN PRN Reason: Fever >100.4 F Last Admin: 04/14/18 20:10 Dose: 650 mg Docusate Sodium (Colace) 100 mg PO TID [facility] Last Admin: 04/14/18 20:10 Dose: 100 mg Enoxaparin Sodium (Lovenox) 40 mg SC DAILY [facility] Last Admin: 04/14/18 10:28 Dose: 40 mg Folic Acid (Folic Acid) 1 mg PO DAILY [facility] Last Admin: 04/14/18 10:29 Dose: 1 mg Heparin Sodium (Porcine) (Heparin) 5,000 units SC Q8 [facility] Lactated Ringer's (Lactated Ringer's) 1,000 mls @ 100 mls/hr IV .Q10H [facility] Last Admin: 04/14/18 15:41 Dose: 100 mls/hr Ceftriaxone Sodium 1 gm/ (Sodium Chloride) 100 mls @ 100 mls/hr IVPB Q12H [facility]; Protocol Last Admin: 04/14/18 17:06 Dose: 100 mls/hr Azithromycin 500 mg/ Sodium (Chloride) 250 mls @ 250 mls/hr IVPB DAILY [facility]; Protocol Last Admin: 04/14/18 10:12 Dose: 250 mls/hr Multivitamins/Vitamin C 10 ml/Thiamine HCl 100 mg/ Folic Acid 1 mg/ Sodium Chloride 1,011.2 mls @ 100 mls/hr IV .Q10H7M ONE Stop: 04/15/18 05:17 Ipratropium [place] (Atrovent Hfa) 2 puff IH RQ6 [facility] Lactobacillus Acidophilus (Bacid Acidophilus) 1 cap PO BID [facility] Lorazepam (Ativan) 1 mg IVP Q6H PRN PRN Reason: Anxiety Multivitamins (Hexavitamin) 1 tab PO DAILY [facility] Last Admin: 04/14/18 10:29 Dose: 1 tab Oseltamivir Phosphate (Tamiflu Cap) 75 mg PO BID [facility]; Protocol Stop: 04/19/18 18:57 Last Admin: 04/14/18 20:10 Dose: 75 mg Pantoprazole Sodium (Protonix Inj) 40 mg IVP DAILY [facility] Last Admin: 04/14/18 10:30 Dose: 40 mg Sennosides (Senokot Tab) 8.6 mg PO BID [facility] Last Admin: 04/14/18 17:21 Dose: Not Given Thiamine HCl (Vitamin B1 Tab) 100 mg PO DAILY [facility] Last Admin: 04/14/18 10:29 Dose: 100 mg - Labs Labs: 04/14/18 06:07 04/14/18 06:07
[2018-04-14] MEDS ORDERED: Metoprolol 1 mg/ml Inj IVP ONE (21:44)
[2018-04-14] MEDS ORDERED: Lactated Ringer's 1,000 ML IV SCH (21:56)
[2018-04-14] MEDS: Piperacill/Tazo 3.375gm in Dex 3.375 GM/50 ML BAG IVPB SCH (22:15)
[2018-04-15] MEDS: Piperacill/Tazo 3.375gm in Dex 3.375 GM/50 ML BAG IVPB SCH ×4 (05:00→22:35)
[2018-04-15 05:48] LABS: BARBITURATES, UR NEGATIVE (NEGATIVE); BENZODIAZEPINES, UR NEGATIVE (NEGATIVE); OPIATES, UR NEGATIVE (NEGATIVE); OSMOLALITY,URINE 836 mosm/kg (300-1000); PHENCYCLIDINE, UR NEGATIVE (NEGATIVE)
[2018-04-15 05:57] LABS: HEMOGLOBIN 13.2 g/dL (12.0-18.0); MEAN CORPUSCULAR HEMOGLOBIN 29.9 pg (27.0-31.0); MEAN CORPUSCULAR HGB CONC 33.3 g/dL (33.0-37.0); MEAN PLATELET VOLUME 10.3 fL (7.2-11.7); PLATELET COUNT 162 K/uL (130-400); RBC 4.42 Mil/uL (4.40-5.90); RED CELL DISTRIBUTION WIDTH 13.7 % (11.5-14.5); WHITE BLOOD COUNT 12.1 K/uL (4.8-10.8)
[2018-04-15 06:18] LABS: ALB/GLOB RATIO 1.1 (1.0-2.1); ALBUMIN 3.3 g/dL (3.5-5.0); ALT/SGPT 94 U/L (21-72); AST/SGOT 111 U/L (17-59); BLOOD UREA NITROGEN 10 mg/dL (9-20); CALCIUM 8.3 mg/dl (8.6-10.4); GFR NON-AFRICAN AMERICAN > 60; HDL CHOLESTEROL 41 mg/dL (30-70)
[2018-04-15 06:21] LABS: MEAN CELL VOLUME 89.7 fL (80.0-94.0)
[2018-04-15 06:28] LABS: LDL CHOLESTEROL < 30 mg/dL (0-129)
[2018-04-15 06:42] LABS: HEPATITIS B SURFACE AG Negative (NEGATIVE)
[2018-04-15 06:48] LABS: HEPATITIS A IGM NEGATIVE (NEGATIVE); HEPATITIS B CORE AB NEGATIVE (NEGATIVE)
[2018-04-15 07:00] LABS: HEPATITIS C ANTIBODY NEGATIVE (NEGATIVE)
[2018-04-15] MEDS: Albuterol-Ipratrop 3 mg / 0.5 (3 ml) UD INH SCH ×3 (08:00→19:51)
[2018-04-15] MEDS: Acetylcysteine 20% Inhal Soln (4ml) INH SCH ×3 (08:00→19:51)
[2018-04-15] MEDS: Lactobacillus Acidophilus 500 MU Cap PO SCH ×2 (09:00→17:00)
[2018-04-15] MEDS ORDERED: Potassium Phosphate 15 MMOLE in Sodium Chloride 0.9% 250 ML IVPB ONE (09:00)
[2018-04-15] MEDS: Enoxaparin 40 mg Syringe SC SCH (09:01)
[2018-04-15] MEDS: Multiple Vitamins Tab PO SCH (09:01)
[2018-04-15] MEDS: Azithromycin 500 MG in Sodium Chloride 0.9% 250 ML IVPB SCH (09:03)
--- NOTE | 2018-04-15 09:13 | RAD ---
Date of service: 04/15/2018 HISTORY: SOB COMPARISON: No prior. FINDINGS: LUNGS: Opacification of the lower 3/4 of the right hemithorax. Likely moderate to large pleural effusion. Superimposed opacity right upper lobe as well as possibly right lower lobe. Correlating with CT examination of 04/13/2018, right upper lobe and lower lobe consolidation was evident at that time. PLEURA: Probable large right pleural effusion. No left pleural effusion. No pneumothorax. CARDIOVASCULAR: No aortic atherosclerotic calcification present. Normal cardiac size. No pulmonary vascular congestion. OSSEOUS STRUCTURES: No significant abnormalities. VISUALIZED UPPER ABDOMEN: Normal. OTHER FINDINGS: None. IMPRESSION: Large right pleural effusion. Likely superimposed consolidation in the right upper lobe as well as possible right lower lobe.
[2018-04-15 10:01] LABS: N MENINGITIS ACY/W135 NEGATIVE (NEGATIVE); N MENINGITIS B/ECOLI K1 NEGATIVE (NEGATIVE); STREP PNEUMONIAE NEGATIVE (NEGATIVE); STREPTOCOCCUS B NEGATIVE (NEGATIVE)
--- NOTE | 2018-04-15 10:41 | CP.CCUPN ---
<Misael Tate - Last Filed: 04/15/18 15:54> CCU Subjective - Physician Review Subjective (Free Text): PGY-[address] Trejo service Patient is seen and examined at bedside. Patient continues to feel short of breath, states could not sleep last night with high flow NC, but was able to rest with bipap. Patient's right lower quadrant pain has improved and reports 3 bowel movements yesterday. and friend is at bedside. no other complaints at this time. Critical Care Time Spent (in minutes): 35 CCU Objective - Vital Signs / Intake & Output Vital Signs (Last 4 hours): Vital Signs Temp Pulse Resp BP Pulse Ox 04/15/18 10:00 111/73 04/15/18 09:01 121 H 35 H 134/83 97 04/15/18 08:00 98.9 F 114 H 31 H 127/80 95 04/15/18 07:00 112 H 20 121/80 97 Intake and Output (Last 8hrs): Intake & Output 04/14/18 04/15/18 04/15/18 22:59 06:59 14:59 Intake Total 2065 530 780 Output Total 280 1200 1100 Balance 1785 -670 -320 Weight 205 lb 0.478 oz Intake: Intake, IV Amount 1225 530 420 Right Antecubital 760 480 120 Right Distal Port 465 50 300 Antecubital Oral 840 360 Output: Urine 280 1200 1100 Urine, Voided 280 1200 1100 Other: # Voids Urine, Voided 1 1 # Bowel Movements 1 - Physical Exam Head: Positive for: Atraumatic, Normocephalic Pupils: Positive for: PERRL Extroacular Muscles: Positive for: EOMI Conjunctiva: Positive for: Normal Neck: Positive for: Normal Range of Motion Respiratory/Chest: Positive for: Decreased Breath Sounds (right middle and lower lobes ), Rales. Negative for: Respiratory Distress, Accessory Muscle Use Cardiovascular: Positive for: Regular Rate and Rhythm, Normal S1, S2 Abdomen: Positive for: Distention, Normal Bowel Sounds. Negative for: Tenderness Upper Extremity: Positive for: Normal Inspection. Negative for: Cyanosis, Edema Lower Extremity: Positive for: Normal Inspection. Negative for: Edema Neurological: Positive for: CN II-XII Intact Skin: Positive for: Warm, Dry, Normal Color Psychiatric: Positive for: Alert, Oriented x 3, Normal Insight - Medications Active Medications: Active Medications Generic Name Dose Route Start Last Admin Trade Name Freq PRN Reason Stop Dose Admin Acetaminophen 650 mg 04/14/18 19:40 04/14/18 20:10 Tylenol 325mg Tab PO 650 mg Q6H PRN Administration Fever >100.4 F Acetylcysteine 4 ml 04/15/18 08:00 04/15/18 08:00 Acetylcysteine 20% INH 4 ml RQ6 JESUS Administration Albuterol/Ipratropium 3 ml 04/15/18 08:00 04/15/18 08:00 Duoneb 3 Mg/0.5 Mg (3 Ml) Ud INH 3 ml RQ6 JESUS Administration Docusate Sodium 100 mg 04/14/18 18:30 04/15/18 09:00 Colace PO 100 mg TID JESUS Administration Enoxaparin Sodium 40 mg 04/14/18 10:00 04/15/18 09:01 Lovenox SC 40 mg DAILY JESUS Administration Folic Acid 1 mg 04/14/18 10:00 04/15/18 09:01 Folic Acid PO 1 mg DAILY JESUS Administration Azithromycin 500 mg/ Sodium 250 mls @ 250 mls/hr 04/14/18 00:11 04/15/18 09:03 Chloride IVPB 250 mls/hr DAILY JESUS Administration Protocol Lactated Ringer's 1,000 mls @ 60 mls/hr 04/14/18 21:56 04/14/18 22:00 Lactated Ringer's IV Not Given .[id number] JESUS Piperacillin Sod/Tazobactam Sod 3.375 gm in 50 mls @ 100 mls/hr 04/14/18 22:00 04/15/18 09:02 Zosyn 3.375 Gm Iv Premix IVPB 100 mls/hr Q6H JESUS Administration Protocol Potassium Phosphate 15 mmole/ 255 mls @ 42.5 mls/hr 04/15/18 09:00 04/15/18 10:27 Sodium Chloride IVPB 04/15/18 14:59 42.5 mls/hr ONCE ONE Administration Lactobacillus Acidophilus 1 cap 04/14/18 18:45 04/15/18 09:00 Bacid Acidophilus PO 1 cap BID JESUS Administration Lorazepam 1 mg 04/14/18 19:07 Ativan IVP Q6H PRN Anxiety Multivitamins 1 tab 04/14/18 10:00 04/15/18 09:01 Hexavitamin PO 1 tab DAILY JESUS Administration Oseltamivir Phosphate 75 mg 04/14/18 19:00 04/15/18 09:02 Tamiflu Cap PO 04/19/18 18:57 75 mg BID JESUS Administration Protocol Pantoprazole Sodium 40 mg 04/14/18 10:00 04/15/18 09:02 Protonix Inj IVP 40 mg DAILY JESUS Administration Sennosides 8.6 mg 04/14/18 00:15 04/14/18 17:21 Senokot Tab PO Not Given BID JESUS Thiamine HCl 100 mg 04/14/18 10:00 04/15/18 09:02 Vitamin B1 Tab PO 100 mg DAILY JESUS Administration - Patient Studies Lab Studies: Microbiology Studies 04/14/18 06:06 MRSA Culture (Admit) - Final Nose MRSA DETECTED 04/13/18 21:43 Blood Culture - Preliminary Blood NO GROWTH AFTER 24 HOURS 04/13/18 21:00 Blood Culture - Preliminary Blood NO GROWTH AFTER 24 HOURS 04/13/18 20:48 Urine Culture - Preliminary Urine Random No growth. Lab Studies 04/15/18 04/15/18 04/15/18 Range/Units 06:56 05:49 05:49 WBC (4.8-10.8) K/uL RBC (4.40-5.90) Mil/uL Hgb (12.0-18.0) g/dL Hct (35.0-51.0) % MCV (80.0-94.0) fL MCH (27.0-31.0) pg MCHC (33.0-37.0) g/dL RDW (11.5-14.5) % Plt Count (130-400) K/uL MPV (7.2-11.7) fL Puncture Site pCO2 (35-45) mm/Hg pO2 (80-100) mm/Hg HCO3 (21-28) mmol/L ABG pH (7.35-7.45) ABG Total CO2 (22-28) mmol/L ABG O2 Saturation (95-98) % ABG Base Excess (-2.0-3.0) mmol/L [place] Test ABG Potassium (3.6-5.2) mmol/L A-a O2 Difference mm/Hg Respiratory Index Sodium (132-148) mmol/l Chloride (98-107) mmol/L Glucose (75-110) mg/dl Lactate (0.7-2.1) mmol/L Vent Mode FiO2 % Inspiratory BiPAP Expiratory BiPAP Potassium (3.6-5.2) mmol/L Carbon Dioxide (22-30) mmol/L Anion Gap (10-20) BUN (9-20) mg/dL Creatinine (0.8-1.5) mg/dL Est GFR ( Amer) Est GFR (Non-Af Amer) Random Glucose (75-110) mg/dL Lactic Acid 1.4 (0.7-2.1) mmol/L Calcium (8.6-10.4) mg/dl Phosphorus (2.5-4.5) mg/dL Magnesium (1.6-2.3) mg/dL Total Bilirubin (0.2-1.3) mg/dL AST (17-59) U/L ALT (21-72) U/L Alkaline Phosphatase (38-126) U/L Lactate Dehydrogenase (313-618) U/L Total Protein (6.3-8.3) g/dL Albumin (3.5-5.0) g/dL Globulin (2.2-3.9) gm/dL Albumin/Globulin Ratio (1.0-2.1) Triglycerides (0-149) mg/dL Cholesterol (0-199) mg/dL LDL Cholesterol Direct (0-129) mg/dL HDL Cholesterol (30-70) mg/dL Cortisol AM Sample (4.46-22.7) ug/dL Arterial Blood Potassium (3.6-5.2) mmol/L Urine Osmolality (300-1000) mosm/kg Ur Random Sodium mmol/L Urine Opiates Screen (NEGATIVE) Urine Methadone Screen (NEGATIVE) Ur Barbiturates Screen (NEGATIVE) Ur Phencyclidine Scrn (NEGATIVE) Ur Amphetamines Screen (NEGATIVE) U Benzodiazepines Scrn (NEGATIVE) U Oth Cocaine Metabols (NEGATIVE) U Cannabinoids Screen (NEGATIVE) Hepatitis A IgM Ab (NEGATIVE) Hep Bs Antigen (NEGATIVE) Hep B Core IgM Ab (NEGATIVE) Hepatitis C Antibody (NEGATIVE) HIV 1&2 Antibody Screen Negative (NEGATIVE) H.influenzae Type B Ag Negative (NEGATIVE) Ur L.pneumophila Ag (NEGATIVE) N.meningitidis ACY/W135 Negative (NEGATIVE) N.meningi B/E.coli K1 Ag Negative (NEGATIVE) Group B Strep Antigen Negative (NEGATIVE) S. pneumoniae Antigen Negative (NEGATIVE) 04/15/18 04/15/18 04/15/18 Range/Units 05:49 05:49 05:49 WBC (4.8-10.8) K/uL RBC (4.40-5.90) Mil/uL Hgb (12.0-18.0) g/dL Hct (35.0-51.0) % MCV (80.0-94.0) fL MCH (27.0-31.0) pg MCHC (33.0-37.0) g/dL RDW (11.5-14.5) % Plt Count (130-400) K/uL MPV (7.2-11.7) fL Puncture Site pCO2 (35-45) mm/Hg pO2 (80-100) mm/Hg HCO3 (21-28) mmol/L ABG pH (7.35-7.45) ABG Total CO2 (22-28) mmol/L ABG O2 Saturation (95-98) % ABG Base Excess (-2.0-3.0) mmol/L [place] Test ABG Potassium (3.6-5.2) mmol/L A-a O2 Difference mm/Hg Respiratory Index Sodium 133 (132-148) mmol/l Chloride 99 (98-107) mmol/L Glucose (75-110) mg/dl Lactate (0.7-2.1) mmol/L Vent Mode FiO2 % Inspiratory BiPAP Expiratory BiPAP Potassium 3.0 L (3.6-5.2) mmol/L Carbon Dioxide 26 (22-30) mmol/L Anion Gap 12 (10-20) BUN 10 (9-20) mg/dL Creatinine 0.6 L (0.8-1.5) mg/dL Est GFR ( Amer) > 60 Est GFR (Non-Af Amer) > 60 Random Glucose 111 H (75-110) mg/dL Lactic Acid (0.7-2.1) mmol/L Calcium 8.3 L (8.6-10.4) mg/dl Phosphorus 2.2 L (2.5-4.5) mg/dL Magnesium 2.4 H (1.6-2.3) mg/dL Total Bilirubin 1.2 (0.2-1.3) mg/dL AST 111 H (17-59) U/L ALT 94 H (21-72) U/L Alkaline Phosphatase 115 (38-126) U/L Lactate Dehydrogenase 605 (313-618) U/L Total Protein 6.4 (6.3-8.3) g/dL Albumin 3.3 L (3.5-5.0) g/dL Globulin 3.1 (2.2-3.9) gm/dL Albumin/Globulin Ratio 1.1 (1.0-2.1) Triglycerides 121 (0-149) mg/dL Cholesterol 104 (0-199) mg/dL LDL Cholesterol Direct < 30 (0-129) mg/dL HDL Cholesterol 41 (30-70) mg/dL Cortisol AM Sample 22.1 (4.46-22.7) ug/dL Arterial Blood Potassium (3.6-5.2) mmol/L Urine Osmolality (300-1000) mosm/kg Ur Random Sodium mmol/L Urine Opiates Screen (NEGATIVE) Urine Methadone Screen (NEGATIVE) Ur Barbiturates Screen (NEGATIVE) Ur Phencyclidine Scrn (NEGATIVE) Ur Amphetamines Screen (NEGATIVE) U Benzodiazepines Scrn (NEGATIVE) U Oth Cocaine Metabols (NEGATIVE) U Cannabinoids Screen (NEGATIVE) Hepatitis A IgM Ab Negative (NEGATIVE) Hep Bs Antigen Negative (NEGATIVE) Hep B Core IgM Ab Negative (NEGATIVE) Hepatitis C Antibody Negative (NEGATIVE) HIV 1&2 Antibody Screen (NEGATIVE) H.influenzae Type B Ag (NEGATIVE) Ur L.pneumophila Ag (NEGATIVE) N.meningitidis ACY/W135 (NEGATIVE) N.meningi B/E.coli K1 Ag (NEGATIVE) Group B Strep Antigen (NEGATIVE) S. pneumoniae Antigen (NEGATIVE) 04/15/18 04/15/18 04/14/18 Range/Units 05:49 01:00 20:08 WBC 12.1 H (4.8-10.8) K/uL RBC 4.42 (4.40-5.90) Mil/uL Hgb 13.2 (12.0-18.0) g/dL Hct 39.6 (35.0-51.0) % MCV 89.7 D (80.0-94.0) fL MCH 29.9 (27.0-31.0) pg MCHC 33.3 (33.0-37.0) g/dL RDW 13.7 (11.5-14.5) % Plt Count 162 (130-400) K/uL MPV 10.3 (7.2-11.7) fL Puncture Site Lr pCO2 34 L (35-45) mm/Hg pO2 270 H (80-100) mm/Hg HCO3 24.1 (21-28) mmol/L ABG pH 7.43 (7.35-7.45) ABG Total CO2 23.6 (22-28) mmol/L ABG O2 Saturation 100.0 H (95-98) % ABG Base Excess -1.1 (-2.0-3.0) mmol/L [place] Test Po ABG Potassium 2.7 L (3.6-5.2) mmol/L A-a O2 Difference 401.0 mm/Hg Respiratory Index 1.5 Sodium 131.0 L (132-148) mmol/l Chloride 99.0 (98-107) mmol/L Glucose 155 H (75-110) mg/dl Lactate 2.1 (0.7-2.1) mmol/L Vent Mode Bipap FiO2 100.0 % Inspiratory BiPAP 18 Expiratory BiPAP 6 Potassium (3.6-5.2) mmol/L Carbon Dioxide (22-30) mmol/L Anion Gap (10-20) BUN (9-20) mg/dL Creatinine (0.8-1.5) mg/dL Est GFR ( Amer) Est GFR (Non-Af Amer) Random Glucose (75-110) mg/dL Lactic Acid (0.7-2.1) mmol/L Calcium (8.6-10.4) mg/dl Phosphorus (2.5-4.5) mg/dL Magnesium (1.6-2.3) mg/dL Total Bilirubin (0.2-1.3) mg/dL AST (17-59) U/L ALT (21-72) U/L Alkaline Phosphatase (38-126) U/L Lactate Dehydrogenase (313-618) U/L Total Protein (6.3-8.3) g/dL Albumin (3.5-5.0) g/dL Globulin (2.2-3.9) gm/dL Albumin/Globulin Ratio (1.0-2.1) Triglycerides (0-149) mg/dL Cholesterol (0-199) mg/dL LDL Cholesterol Direct (0-129) mg/dL HDL Cholesterol (30-70) mg/dL Cortisol AM Sample (4.46-22.7) ug/dL Arterial Blood Potassium 2.7 L (3.6-5.2) mmol/L Urine Osmolality 836 (300-1000) mosm/kg Ur Random Sodium 35 mmol/L Urine Opiates Screen Negative (NEGATIVE) Urine Methadone Screen Negative (NEGATIVE) Ur Barbiturates Screen Negative (NEGATIVE) Ur Phencyclidine Scrn Negative (NEGATIVE) Ur Amphetamines Screen Negative (NEGATIVE) U Benzodiazepines Scrn Negative (NEGATIVE) U Oth Cocaine Metabols Negative (NEGATIVE) U Cannabinoids Screen Negative (NEGATIVE) Hepatitis A IgM Ab (NEGATIVE) Hep Bs Antigen (NEGATIVE) Hep B Core IgM Ab (NEGATIVE) Hepatitis C Antibody (NEGATIVE) HIV 1&2 Antibody Screen (NEGATIVE) H.influenzae Type B Ag (NEGATIVE) Ur L.pneumophila Ag (NEGATIVE) N.meningitidis ACY/W135 (NEGATIVE) N.meningi B/E.coli K1 Ag (NEGATIVE) Group B Strep Antigen (NEGATIVE) S. pneumoniae Antigen (NEGATIVE) 04/13/18 Range/Units 22:46 WBC (4.8-10.8) K/uL RBC (4.40-5.90) Mil/uL Hgb (12.0-18.0) g/dL Hct (35.0-51.0) % MCV (80.0-94.0) fL MCH (27.0-31.0) pg MCHC (33.0-37.0) g/dL RDW (11.5-14.5) % Plt Count (130-400) K/uL MPV (7.2-11.7) fL Puncture Site pCO2 (35-45) mm/Hg pO2 (80-100) mm/Hg HCO3 (21-28) mmol/L ABG pH (7.35-7.45) ABG Total CO2 (22-28) mmol/L ABG O2 Saturation (95-98) % ABG Base Excess (-2.0-3.0) mmol/L [place] Test ABG Potassium (3.6-5.2) mmol/L A-a O2 Difference mm/Hg Respiratory Index Sodium (132-148) mmol/l Chloride (98-107) mmol/L Glucose (75-110) mg/dl Lactate (0.7-2.1) mmol/L Vent Mode FiO2 % Inspiratory BiPAP Expiratory BiPAP Potassium (3.6-5.2) mmol/L Carbon Dioxide (22-30) mmol/L Anion Gap (10-20) BUN (9-20) mg/dL Creatinine (0.8-1.5) mg/dL Est GFR ( Amer) Est GFR (Non-Af Amer) Random Glucose (75-110) mg/dL Lactic Acid (0.7-2.1) mmol/L Calcium (8.6-10.4) mg/dl Phosphorus (2.5-4.5) mg/dL Magnesium (1.6-2.3) mg/dL Total Bilirubin (0.2-1.3) mg/dL AST (17-59) U/L ALT (21-72) U/L Alkaline Phosphatase (38-126) U/L Lactate Dehydrogenase (313-618) U/L Total Protein (6.3-8.3) g/dL Albumin (3.5-5.0) g/dL Globulin (2.2-3.9) gm/dL Albumin/Globulin Ratio (1.0-2.1) Triglycerides (0-149) mg/dL Cholesterol (0-199) mg/dL LDL Cholesterol Direct (0-129) mg/dL HDL Cholesterol (30-70) mg/dL Cortisol AM Sample (4.46-22.7) ug/dL Arterial Blood Potassium (3.6-5.2) mmol/L Urine Osmolality (300-1000) mosm/kg Ur Random Sodium mmol/L Urine Opiates Screen (NEGATIVE) Urine Methadone Screen (NEGATIVE) Ur Barbiturates Screen (NEGATIVE) Ur Phencyclidine Scrn (NEGATIVE) Ur Amphetamines Screen (NEGATIVE) U Benzodiazepines Scrn (NEGATIVE) U Oth Cocaine Metabols (NEGATIVE) U Cannabinoids Screen (NEGATIVE) Hepatitis A IgM Ab (NEGATIVE) Hep Bs Antigen (NEGATIVE) Hep B Core IgM Ab (NEGATIVE) Hepatitis C Antibody (NEGATIVE) HIV 1&2 Antibody Screen (NEGATIVE) H.influenzae Type B Ag (NEGATIVE) Ur L.pneumophila Ag Negative (NEGATIVE) N.meningitidis ACY/W135 (NEGATIVE) N.meningi B/E.coli K1 Ag (NEGATIVE) Group B Strep Antigen (NEGATIVE) S. pneumoniae Antigen (NEGATIVE) Laboratory Results - last 24 hr 04/13/18 04/14/18 04/15/18 22:46 20:08 01:00 WBC RBC Hgb Hct MCV MCH MCHC RDW Plt Count MPV Puncture Site Lr pCO2 34 L pO2 270 H HCO3 24.1 ABG pH 7.43 ABG Total CO2 23.6 ABG O2 Saturation 100.0 H ABG Base Excess -1.1 [place] Test Po ABG Potassium 2.7 L A-a O2 Difference 401.0 Respiratory Index 1.5 Sodium 131.0 L Chloride 99.0 Glucose 155 H Lactate 2.1 Vent Mode Bipap FiO2 100.0 Inspiratory BiPAP 18 Expiratory BiPAP 6 Potassium Carbon Dioxide Anion Gap BUN Creatinine Est GFR ( Amer) Est GFR (Non-Af Amer) Random Glucose Lactic Acid Calcium Phosphorus Magnesium Total Bilirubin AST ALT Alkaline Phosphatase Lactate Dehydrogenase Total Protein Albumin Globulin Albumin/Globulin Ratio Triglycerides Cholesterol LDL Cholesterol Direct HDL Cholesterol Cortisol AM Sample Arterial Blood Potassium 2.7 L Urine Osmolality 836 Ur Random Sodium 35 Urine Opiates Screen Negative Urine Methadone Screen Negative Ur Barbiturates Screen Negative Ur Phencyclidine Scrn Negative Ur Amphetamines Screen Negative U Benzodiazepines Scrn Negative U Oth Cocaine Metabols Negative U Cannabinoids Screen Negative Hepatitis A IgM Ab Hep Bs Antigen Hep B Core IgM Ab Hepatitis C Antibody HIV 1&2 Antibody Screen H.influenzae Type B Ag Ur L.pneumophila Ag Negative N.meningitidis ACY/W135 N.meningi B/E.coli K1 Ag Group B Strep Antigen S. pneumoniae Antigen 04/15/18 04/15/18 04/15/18 05:49 05:49 05:49 WBC 12.1 H RBC 4.42 Hgb 13.2 Hct 39.6 MCV 89.7 D MCH 29.9 MCHC 33.3 RDW 13.7 Plt Count 162 MPV 10.3 Puncture Site pCO2 pO2 HCO3 ABG pH ABG Total CO2 ABG O2 Saturation ABG Base Excess [place] Test ABG Potassium A-a O2 Difference Respiratory Index Sodium 133 Chloride 99 Glucose Lactate Vent Mode FiO2 Inspiratory BiPAP Expiratory BiPAP Potassium 3.0 L Carbon Dioxide 26 Anion Gap 12 BUN 10 Creatinine 0.6 L Est GFR ( Amer) > 60 Est GFR (Non-Af Amer) > 60 Random Glucose 111 H Lactic Acid Calcium 8.3 L Phosphorus 2.2 L Magnesium 2.4 H Total Bilirubin 1.2 AST 111 H ALT 94 H Alkaline Phosphatase 115 Lactate Dehydrogenase 605 Total Protein 6.4 Albumin 3.3 L Globulin 3.1 Albumin/Globulin Ratio 1.1 Triglycerides 121 Cholesterol 104 LDL Cholesterol Direct < 30 HDL Cholesterol 41 Cortisol AM Sample 22.1 Arterial Blood Potassium Urine Osmolality Ur Random Sodium Urine Opiates Screen Urine Methadone Screen Ur Barbiturates Screen Ur Phencyclidine Scrn Ur Amphetamines Screen U Benzodiazepines Scrn U Oth Cocaine Metabols U Cannabinoids Screen Hepatitis A IgM Ab Hep Bs Antigen Hep B Core IgM Ab Hepatitis C Antibody HIV 1&2 Antibody Screen H.influenzae Type B Ag Ur L.pneumophila Ag N.meningitidis ACY/W135 N.meningi B/E.coli K1 Ag Group B Strep Antigen S. pneumoniae Antigen 04/15/18 04/15/18 04/15/18 05:49 05:49 05:49 WBC RBC Hgb Hct MCV MCH MCHC RDW Plt Count MPV Puncture Site pCO2 pO2 HCO3 ABG pH ABG Total CO2 ABG O2 Saturation ABG Base Excess [place] Test ABG Potassium A-a O2 Difference Respiratory Index Sodium Chloride Glucose Lactate Vent Mode FiO2 Inspiratory BiPAP Expiratory BiPAP Potassium Carbon Dioxide Anion Gap BUN Creatinine Est GFR ( Amer) Est GFR (Non-Af Amer) Random Glucose Lactic Acid 1.4 Calcium Phosphorus Magnesium Total Bilirubin AST ALT Alkaline Phosphatase Lactate Dehydrogenase Total Protein Albumin Globulin Albumin/Globulin Ratio Triglycerides Cholesterol LDL Cholesterol Direct HDL Cholesterol Cortisol AM Sample Arterial Blood Potassium Urine Osmolality Ur Random Sodium Urine Opiates Screen Urine Methadone Screen Ur Barbiturates Screen Ur Phencyclidine Scrn Ur Amphetamines Screen U Benzodiazepines Scrn U Oth Cocaine Metabols U Cannabinoids Screen Hepatitis A IgM Ab Negative Hep Bs Antigen Negative Hep B Core IgM Ab Negative Hepatitis C Antibody Negative HIV 1&2 Antibody Screen Negative H.influenzae Type B Ag Ur L.pneumophila Ag N.meningitidis ACY/W135 N.meningi B/E.coli K1 Ag Group B Strep Antigen S. pneumoniae Antigen 04/15/18 06:56 WBC RBC Hgb Hct MCV MCH MCHC RDW Plt Count MPV Puncture Site pCO2 pO2 HCO3 ABG pH ABG Total CO2 ABG O2 Saturation ABG Base Excess [place] Test ABG Potassium A-a O2 Difference Respiratory Index Sodium Chloride Glucose Lactate Vent Mode FiO2 Inspiratory BiPAP Expiratory BiPAP Potassium Carbon Dioxide Anion Gap BUN Creatinine Est GFR ( Amer) Est GFR (Non-Af Amer) Random Glucose Lactic Acid Calcium Phosphorus Magnesium Total Bilirubin AST ALT Alkaline Phosphatase Lactate Dehydrogenase Total Protein Albumin Globulin Albumin/Globulin Ratio Triglycerides Cholesterol LDL Cholesterol Direct HDL Cholesterol Cortisol AM Sample Arterial Blood Potassium Urine Osmolality Ur Random Sodium Urine Opiates Screen Urine Methadone Screen Ur Barbiturates Screen Ur Phencyclidine Scrn Ur Amphetamines Screen U Benzodiazepines Scrn U Oth Cocaine Metabols U Cannabinoids Screen Hepatitis A IgM Ab Hep Bs Antigen Hep B Core IgM Ab Hepatitis C Antibody HIV 1&2 Antibody Screen H.influenzae Type B Ag Negative Ur L.pneumophila Ag N.meningitidis ACY/W135 Negative N.meningi B/E.coli K1 Ag Negative Group B Strep Antigen Negative S. pneumoniae Antigen Negative Radiology Impressions: Radiology Impressions Abdomen Ultrasound 04/14/18 08:00 IMPRESSION: Echogenic liver may be seen in setting of hepatic parenchymal disease or fatty infiltration. Incidental note is made of right-sided pleural effusion. Chest X-Ray 04/15/18 08:30 IMPRESSION: Large right pleural effusion. Likely superimposed consolidation in the right upper lobe as well as possible right lower lobe. EKG/Cardiology Studies: Cardiology / EKG Studies 04/14/18 22:49 EKG [ELECTROCARDIOGRAM] Routine Comment: Mode Of Transportation: PORTABLE Reason For Exam: tachycardia Critical Care Progress Note - Ventilator Checklist PUD Prophalyxis: Yes DVT Prophylaxis: Yes - Nutrition Nutrition: Nutrition Category Date Time Status Regular Diet [DIET] Diets 04/14/18 Breakfast Active Assessment/Plan - Assessment and Plan (Free Text) Plan: 43 year old male with no pmhx presenting to ED with RLQ abdominal pain, fever and chills since last , constipated x 3 days, code sepsis, elevated WBC, bandemia, elevated lactate, CT shows Rt lung consolidation, most likely due to PNA 2/2 to alcohol intoxication. thoracentesis at bedside today due to large right pleural effusion, likely superimposed consolidation in right upper lobe as well as possible right lower lobe as per 04/15 chest xray. Neuro AAO x3, no acute problems alcohol use disorder - CIWA, ativan PRN, multivit, thiamine folate, banana bag Pulm PNA 2/2 to aspiration most likely from alcohol intoxication CT on admission - R lung pneumonic consolidation, small pleural effusion, hepatomegaly Pt continues to be tachypneic, decreased lung sounds on right side of chest repeat Chest Xray this am - Large right pleural effusion, likely superimposed consolidation in right upper lobe as well as possible right lower lobe Thoracentesis this am - 1.4 L of purulent pleural fluid - patient complaining of pain after procedure - Morphine and Toradol IV x1 thoracentesis fluid culture, CBC, protein and glucose - f/u repeat chest x ray -after procedure - improving but persistent small right sided pleural effusion and consolidation, addit patchy opacities within the right meithorac may reflect infiltrate. Ipatropium Q6Hrs continue BIPAP abx - d/c azythromycin, start Clinda, vanco, continue Zosyn Cardio thoracic sx consult - Dr Meza - recs are appreciated Cardio tachycardia - most likely from shortness of breath continue to monitor GI senokot bid for constipation Regular diet abd U/S - echogenic liver- may be seen of hepatic parenchymal disease or fatty inflitration, right sided pleural effusion. monitor BM Renal FAB, elevated cr monitor urine output Kphosp x1 for low potassium and phosp Heme WBC improving today, bands from 45 to 30 H/H stable ID today WBC 12.1, bands 58 afebrile this morning DC Zythromax Continue Zosyn, starte Vanco x1 dose, continue Vanco Q12H, Start Clinda Q8H Tamiflu Legionella, flu - negative Bcx pending, Ucx prelim no growth - continue to follow up Dr Spring - ID follow up recs HIV, Hep, atypicals - negative PPX DVT: lovenox GI: protonix Multivit, thiamine, Folic acid tylenol PRN Plan discussed with Dr Juan Carlos Tate, PGY-1 - Date & Time Date: 04/15/18 Time: 11:00 <Ulises Trejo S - Last Filed: 04/15/18 16:53> CCU Subjective - Physician Review Critical Care Time Spent (in minutes): 60 CCU Objective - Vital Signs / Intake & Output Vital Signs (Last 4 hours): Vital Signs Temp Pulse Resp BP Pulse Ox 04/15/18 16:00 99.5 F 120 H 41 H 96 04/15/18 15:24 124 H 38 H 128/73 95 01/23/19 15:00 128 H 40 H 100 01/23/19 14:00 128 H 20 97 04/15/18 13:00 121 H 25 H 99 Intake and Output (Last 8hrs): Intake & Output 04/15/18 04/15/18 04/15/18 06:59 14:59 22:59 Intake Total 530 1388 300 Output Total 1200 1100 Balance -670 288 300 Weight 205 lb 0.478 oz Intake: Intake, IV Amount 530 668 300 Right Antecubital 480 120 Right Distal Port 50 548 300 Antecubital Oral 720 Output: Urine 1200 1100 Urine, Voided 1200 1100 Other: # Voids Urine, Voided 1 - Medications Active Medications: Active Medications Generic Name Dose Route Start Last Admin Trade Name Freq PRN Reason Stop Dose Admin Acetaminophen 650 mg 04/14/18 19:40 04/14/18 20:10 Tylenol 325mg Tab PO 650 mg Q6H PRN Administration Fever >100.4 F Acetylcysteine 4 ml 04/15/18 08:00 04/15/18 13:39 Acetylcysteine 20% INH 4 ml RQ6 JESUS Administration Albuterol/Ipratropium 3 ml 04/15/18 08:00 04/15/18 13:39 Duoneb 3 Mg/0.5 Mg (3 Ml) Ud INH 3 ml RQ6 JESUS Administration Docusate Sodium 100 mg 04/14/18 18:30 04/15/18 15:37 Colace PO 100 mg TID JESUS Administration Enoxaparin Sodium 40 mg 04/14/18 10:00 04/15/18 09:01 Lovenox SC 40 mg DAILY JESUS Administration Folic Acid 1 mg 04/14/18 10:00 04/15/18 09:01 Folic Acid PO 1 mg DAILY JESUS Administration Piperacillin Sod/Tazobactam Sod 3.375 gm in 50 mls @ 100 mls/hr 04/14/18 22:00 04/15/18 15:37 Zosyn 3.375 Gm Iv Premix IVPB 100 mls/hr Q6H JESUS Administration Protocol Vancomycin HCl 1,250 mg/ 250 mls @ 125 mls/hr 04/16/18 01:30 Sodium Chloride IVPB Q12H JESUS Protocol Clindamycin Phosphate 600 mg/ 104 mls @ 100 mls/hr 04/15/18 16:00 Sodium Chloride IV Q8H JESUS Protocol Lactobacillus Acidophilus 1 cap 04/14/18 18:45 04/15/18 09:00 Bacid Acidophilus PO 1 cap BID JESUS Administration Lorazepam 1 mg 04/14/18 19:07 Ativan IVP Q6H PRN Anxiety Multivitamins 1 tab 04/14/18 10:00 04/15/18 09:01 Hexavitamin PO 1 tab DAILY JESUS Administration Oseltamivir Phosphate 75 mg 04/14/18 19:00 04/15/18 09:02 Tamiflu Cap PO 04/19/18 18:57 75 mg BID JESUS Administration Protocol Pantoprazole Sodium 40 mg 04/14/18 10:00 04/15/18 09:02 Protonix Inj IVP 40 mg DAILY JESUS Administration Sennosides 8.6 mg 04/14/18 00:15 04/15/18 10:50 Senokot Tab PO Not Given BID JESUS Thiamine HCl 100 mg 04/14/18 10:00 04/15/18 09:02 Vitamin B1 Tab PO 100 mg DAILY JESUS Administration - Patient Studies Lab Studies: Microbiology Studies 04/13/18 20:48 Urine Culture - Final Urine Random No Growth (<1,000 CFU/ML) 04/14/18 06:06 MRSA Culture (Admit) - Final Nose MRSA DETECTED 04/13/18 21:43 Blood Culture - Preliminary Blood NO GROWTH AFTER 24 HOURS 04/13/18 21:00 Blood Culture - Preliminary Blood NO GROWTH AFTER 24 HOURS Lab Studies 04/15/18 04/15/18 04/15/18 Range/Units 16:25 13:49 12:00 WBC (4.8-10.8) K/uL RBC (4.40-5.90) Mil/uL Hgb (12.0-18.0) g/dL Hct (35.0-51.0) % MCV (80.0-94.0) fL MCH (27.0-31.0) pg MCHC (33.0-37.0) g/dL RDW (11.5-14.5) % Plt Count (130-400) K/uL MPV (7.2-11.7) fL Neut % (Auto) (50.0-75.0) % Lymph % (Auto) (20.0-40.0) % [place] % (Auto) (0.0-10.0) % Eos % (Auto) (0.0-4.0) % Baso % (Auto) (0.0-2.0) % Neut # (Auto) (1.8-7.0) K/uL Lymph # (Auto) (1.0-4.3) K/uL [place] # (Auto) (0.0-0.8) K/uL Eos # (Auto) (0.0-0.7) K/uL Baso # (Auto) (0.0-0.2) K/uL Neutrophils % (Manual) (50-75) % Band Neutrophils % (0-2) % Lymphocytes % (Manual) (20-40) % Reactive Lymphs % (0-0) % Monocytes % (Manual) (0-10) % Myelocytes % (0-0) % Toxic Granulation Dohle Bodies Platelet Estimate (NORMAL) Anisocytosis (manual) PT 13.0 H (9.7-12.2) SECONDS INR 1.2 APTT 35 H (21-34) SECONDS Puncture Site Pleural fluid pCO2 59 H (35-45) mm/Hg pO2 23 L* (80-100) mm/Hg HCO3 4.7 L* (21-28) mmol/L ABG pH 6.87 L* (7.35-7.45) ABG Total CO2 (22-28) mmol/L ABG O2 Saturation (95-98) % ABG Base Excess -23.0 L (-2.0-3.0) mmol/L [place] Test Na ABG Potassium (3.6-5.2) mmol/L A-a O2 Difference mm/Hg Respiratory Index Sodium (132-148) mmol/l Chloride (98-107) mmol/L Glucose (75-110) mg/dl Lactate (0.7-2.1) mmol/L Vent Mode FiO2 % Inspiratory BiPAP Expiratory BiPAP Crit Value Called To Dr. trejo Crit Value Called By Luis Fernando [facility] Crit Value Read Back Yes Blood Gas Notified Time 1215 Potassium (3.6-5.2) mmol/L Carbon Dioxide (22-30) mmol/L Anion Gap (10-20) BUN (9-20) mg/dL Creatinine (0.8-1.5) mg/dL Est GFR ( Amer) Est GFR (Non-Af Amer) Random Glucose (75-110) mg/dL Lactic Acid (0.7-2.1) mmol/L Calcium (8.6-10.4) mg/dl Phosphorus (2.5-4.5) mg/dL Magnesium (1.6-2.3) mg/dL Total Bilirubin (0.2-1.3) mg/dL AST (17-59) U/L ALT (21-72) U/L Alkaline Phosphatase (38-126) U/L Lactate Dehydrogenase (313-618) U/L Total Protein (6.3-8.3) g/dL Albumin (3.5-5.0) g/dL Globulin (2.2-3.9) gm/dL Albumin/Globulin Ratio (1.0-2.1) Triglycerides (0-149) mg/dL Cholesterol (0-199) mg/dL LDL Cholesterol Direct (0-129) mg/dL HDL Cholesterol (30-70) mg/dL Cortisol AM Sample (4.46-22.7) ug/dL Arterial Blood Potassium (3.6-5.2) mmol/L Urine Osmolality (300-1000) mosm/kg Ur Random Sodium mmol/L Fluid Source Pleural Fluid Appearance Cloudy (CLEAR) Fluid WBC 5178917.0 H (0.0-300.0) /mm3 Fluid RBC 25385.0 H (0.0-0.0) /mm3 Fluid Tot Cell Count 100 H (0-0) Fluid Neutrophils 95.0 H (0-0) % Fluid Lymphocytes 2.0 H (0-0) % Fld Monocyte/Macrophag 3 H (0-0) % Fluid Comment Urine Opiates Screen (NEGATIVE) Urine Methadone Screen (NEGATIVE) Ur Barbiturates Screen (NEGATIVE) Ur Phencyclidine Scrn (NEGATIVE) Ur Amphetamines Screen (NEGATIVE) U Benzodiazepines Scrn (NEGATIVE) U Oth Cocaine Metabols (NEGATIVE) U Cannabinoids Screen (NEGATIVE) Hepatitis A IgM Ab (NEGATIVE) Hep Bs Antigen (NEGATIVE) Hep B Core IgM Ab (NEGATIVE) Hepatitis C Antibody (NEGATIVE) HIV 1&2 Antibody Screen (NEGATIVE) H.influenzae Type B Ag (NEGATIVE) N.meningitidis ACY/W135 (NEGATIVE) N.meningi B/E.coli K1 Ag (NEGATIVE) Group B Strep Antigen (NEGATIVE) S. pneumoniae Antigen (NEGATIVE) 04/15/18 04/15/18 04/15/18 Range/Units 06:56 05:49 05:49 WBC (4.8-10.8) K/uL RBC (4.40-5.90) Mil/uL Hgb (12.0-18.0) g/dL Hct (35.0-51.0) % MCV (80.0-94.0) fL MCH (27.0-31.0) pg MCHC (33.0-37.0) g/dL RDW (11.5-14.5) % Plt Count (130-400) K/uL MPV (7.2-11.7) fL Neut % (Auto) (50.0-75.0) % Lymph % (Auto) (20.0-40.0) % [place] % (Auto) (0.0-10.0) % Eos % (Auto) (0.0-4.0) % Baso % (Auto) (0.0-2.0) % Neut # (Auto) (1.8-7.0) K/uL Lymph # (Auto) (1.0-4.3) K/uL [place] # (Auto) (0.0-0.8) K/uL Eos # (Auto) (0.0-0.7) K/uL Baso # (Auto) (0.0-0.2) K/uL Neutrophils % (Manual) (50-75) % Band Neutrophils % (0-2) % Lymphocytes % (Manual) (20-40) % Reactive Lymphs % (0-0) % Monocytes % (Manual) (0-10) % Myelocytes % (0-0) % Toxic Granulation Dohle Bodies Platelet Estimate (NORMAL) Anisocytosis (manual) PT (9.7-12.2) SECONDS INR APTT (21-34) SECONDS Puncture Site pCO2 (35-45) mm/Hg pO2 (80-100) mm/Hg HCO3 (21-28) mmol/L ABG pH (7.35-7.45) ABG Total CO2 (22-28) mmol/L ABG O2 Saturation (95-98) % ABG Base Excess (-2.0-3.0) mmol/L [place] Test ABG Potassium (3.6-5.2) mmol/L A-a O2 Difference mm/Hg Respiratory Index Sodium (132-148) mmol/l Chloride (98-107) mmol/L Glucose (75-110) mg/dl Lactate (0.7-2.1) mmol/L Vent Mode FiO2 % Inspiratory BiPAP Expiratory BiPAP Crit Value Called To Crit Value Called By Crit Value Read Back Blood Gas Notified Time Potassium (3.6-5.2) mmol/L Carbon Dioxide (22-30) mmol/L Anion Gap (10-20) BUN (9-20) mg/dL Creatinine (0.8-1.5) mg/dL Est GFR ( Amer) Est GFR (Non-Af Amer) Random Glucose (75-110) mg/dL Lactic Acid 1.4 (0.7-2.1) mmol/L Calcium (8.6-10.4) mg/dl Phosphorus (2.5-4.5) mg/dL Magnesium (1.6-2.3) mg/dL Total Bilirubin (0.2-1.3) mg/dL AST (17-59) U/L ALT (21-72) U/L Alkaline Phosphatase (38-126) U/L Lactate Dehydrogenase (313-618) U/L Total Protein (6.3-8.3) g/dL Albumin (3.5-5.0) g/dL Globulin (2.2-3.9) gm/dL Albumin/Globulin Ratio (1.0-2.1) Triglycerides (0-149) mg/dL Cholesterol (0-199) mg/dL LDL Cholesterol Direct (0-129) mg/dL HDL Cholesterol (30-70) mg/dL Cortisol AM Sample (4.46-22.7) ug/dL Arterial Blood Potassium (3.6-5.2) mmol/L Urine Osmolality (300-1000) mosm/kg Ur Random Sodium mmol/L Fluid Source Fluid Appearance (CLEAR) Fluid WBC (0.0-300.0) /mm3 Fluid RBC (0.0-0.0) /mm3 Fluid Tot Cell Count (0-0) Fluid Neutrophils (0-0) % Fluid Lymphocytes (0-0) % Fld Monocyte/Macrophag (0-0) % Fluid Comment Urine Opiates Screen (NEGATIVE) Urine Methadone Screen (NEGATIVE) Ur Barbiturates Screen (NEGATIVE) Ur Phencyclidine Scrn (NEGATIVE) Ur Amphetamines Screen (NEGATIVE) U Benzodiazepines Scrn (NEGATIVE) U Oth Cocaine Metabols (NEGATIVE) U Cannabinoids Screen (NEGATIVE) Hepatitis A IgM Ab (NEGATIVE) Hep Bs Antigen (NEGATIVE) Hep B Core IgM Ab (NEGATIVE) Hepatitis C Antibody (NEGATIVE) HIV 1&2 Antibody Screen Negative (NEGATIVE) H.influenzae Type B Ag Negative (NEGATIVE) N.meningitidis ACY/W135 Negative (NEGATIVE) N.meningi B/E.coli K1 Ag Negative (NEGATIVE) Group B Strep Antigen Negative (NEGATIVE) S. pneumoniae Antigen Negative (NEGATIVE) 04/15/18 04/15/18 04/15/18 Range/Units 05:49 05:49 05:49 WBC (4.8-10.8) K/uL RBC (4.40-5.90) Mil/uL Hgb (12.0-18.0) g/dL Hct (35.0-51.0) % MCV (80.0-94.0) fL MCH (27.0-31.0) pg MCHC (33.0-37.0) g/dL RDW (11.5-14.5) % Plt Count (130-400) K/uL MPV (7.2-11.7) fL Neut % (Auto) (50.0-75.0) % Lymph % (Auto) (20.0-40.0) % [place] % (Auto) (0.0-10.0) % Eos % (Auto) (0.0-4.0) % Baso % (Auto) (0.0-2.0) % Neut # (Auto) (1.8-7.0) K/uL Lymph # (Auto) (1.0-4.3) K/uL [place] # (Auto) (0.0-0.8) K/uL Eos # (Auto) (0.0-0.7) K/uL Baso # (Auto) (0.0-0.2) K/uL Neutrophils % (Manual) (50-75) % Band Neutrophils % (0-2) % Lymphocytes % (Manual) (20-40) % Reactive Lymphs % (0-0) % Monocytes % (Manual) (0-10) % Myelocytes % (0-0) % Toxic Granulation Dohle Bodies Platelet Estimate (NORMAL) Anisocytosis (manual) PT (9.7-12.2) SECONDS INR APTT (21-34) SECONDS Puncture Site pCO2 (35-45) mm/Hg pO2 (80-100) mm/Hg HCO3 (21-28) mmol/L ABG pH (7.35-7.45) ABG Total CO2 (22-28) mmol/L ABG O2 Saturation (95-98) % ABG Base Excess (-2.0-3.0) mmol/L [place] Test ABG Potassium (3.6-5.2) mmol/L A-a O2 Difference mm/Hg Respiratory Index Sodium 133 (132-148) mmol/l Chloride 99 (98-107) mmol/L Glucose (75-110) mg/dl Lactate (0.7-2.1) mmol/L Vent Mode FiO2 % Inspiratory BiPAP Expiratory BiPAP Crit Value Called To Crit Value Called By Crit Value Read Back Blood Gas Notified Time Potassium 3.0 L (3.6-5.2) mmol/L Carbon Dioxide 26 (22-30) mmol/L Anion Gap 12 (10-20) BUN 10 (9-20) mg/dL Creatinine 0.6 L (0.8-1.5) mg/dL Est GFR ( Amer) > 60 Est GFR (Non-Af Amer) > 60 Random Glucose 111 H (75-110) mg/dL Lactic Acid (0.7-2.1) mmol/L Calcium 8.3 L (8.6-10.4) mg/dl Phosphorus 2.2 L (2.5-4.5) mg/dL Magnesium 2.4 H (1.6-2.3) mg/dL Total Bilirubin 1.2 (0.2-1.3) mg/dL AST 111 H (17-59) U/L ALT 94 H (21-72) U/L Alkaline Phosphatase 115 (38-126) U/L Lactate Dehydrogenase 605 (313-618) U/L Total Protein 6.4 (6.3-8.3) g/dL Albumin 3.3 L (3.5-5.0) g/dL Globulin 3.1 (2.2-3.9) gm/dL Albumin/Globulin Ratio 1.1 (1.0-2.1) Triglycerides 121 (0-149) mg/dL Cholesterol 104 (0-199) mg/dL LDL Cholesterol Direct < 30 (0-129) mg/dL HDL Cholesterol 41 (30-70) mg/dL Cortisol AM Sample 22.1 (4.46-22.7) ug/dL Arterial Blood Potassium (3.6-5.2) mmol/L Urine Osmolality (300-1000) mosm/kg Ur Random Sodium mmol/L Fluid Source Fluid Appearance (CLEAR) Fluid WBC (0.0-300.0) /mm3 Fluid RBC (0.0-0.0) /mm3 Fluid Tot Cell Count (0-0) Fluid Neutrophils (0-0) % Fluid Lymphocytes (0-0) % Fld Monocyte/Macrophag (0-0) % Fluid Comment Urine Opiates Screen (NEGATIVE) Urine Methadone Screen (NEGATIVE) Ur Barbiturates Screen (NEGATIVE) Ur Phencyclidine Scrn (NEGATIVE) Ur Amphetamines Screen (NEGATIVE) U Benzodiazepines Scrn (NEGATIVE) U Oth Cocaine Metabols (NEGATIVE) U Cannabinoids Screen (NEGATIVE) Hepatitis A IgM Ab Negative (NEGATIVE) Hep Bs Antigen Negative (NEGATIVE) Hep B Core IgM Ab Negative (NEGATIVE) Hepatitis C Antibody Negative (NEGATIVE) HIV 1&2 Antibody Screen (NEGATIVE) H.influenzae Type B Ag (NEGATIVE) N.meningitidis ACY/W135 (NEGATIVE) N.meningi B/E.coli K1 Ag (NEGATIVE) Group B Strep Antigen (NEGATIVE) S. pneumoniae Antigen (NEGATIVE) 04/15/18 04/15/18 04/14/18 Range/Units 05:49 01:00 20:08 WBC 12.1 H (4.8-10.8) K/uL RBC 4.42 (4.40-5.90) Mil/uL Hgb 13.2 (12.0-18.0) g/dL Hct 39.6 (35.0-51.0) % MCV 89.7 D (80.0-94.0) fL MCH 29.9 (27.0-31.0) pg MCHC 33.3 (33.0-37.0) g/dL RDW 13.7 (11.5-14.5) % Plt Count 162 (130-400) K/uL MPV 10.3 (7.2-11.7) fL Neut % (Auto) 96.6 H (50.0-75.0) % Lymph % (Auto) 2.2 L (20.0-40.0) % [place] % (Auto) 0.7 (0.0-10.0) % Eos % (Auto) 0.4 (0.0-4.0) % Baso % (Auto) 0.1 (0.0-2.0) % Neut # (Auto) 11.7 H (1.8-7.0) K/uL Lymph # (Auto) 0.3 L (1.0-4.3) K/uL [place] # (Auto) 0.1 (0.0-0.8) K/uL Eos # (Auto) 0.1 (0.0-0.7) K/uL Baso # (Auto) 0.0 (0.0-0.2) K/uL Neutrophils % (Manual) 34 L (50-75) % Band Neutrophils % 58 H* (0-2) % Lymphocytes % (Manual) 3 L (20-40) % Reactive Lymphs % 1 H (0-0) % Monocytes % (Manual) 2 (0-10) % Myelocytes % 2 H (0-0) % Toxic Granulation Present Dohle Bodies Present Platelet Estimate Normal (NORMAL) Anisocytosis (manual) Slight PT (9.7-12.2) SECONDS INR APTT (21-34) SECONDS Puncture Site Lr pCO2 34 L (35-45) mm/Hg pO2 270 H (80-100) mm/Hg HCO3 24.1 (21-28) mmol/L ABG pH 7.43 (7.35-7.45) ABG Total CO2 23.6 (22-28) mmol/L ABG O2 Saturation 100.0 H (95-98) % ABG Base Excess -1.1 (-2.0-3.0) mmol/L [place] Test Po ABG Potassium 2.7 L (3.6-5.2) mmol/L A-a O2 Difference 401.0 mm/Hg Respiratory Index 1.5 Sodium 131.0 L (132-148) mmol/l Chloride 99.0 (98-107) mmol/L Glucose 155 H (75-110) mg/dl Lactate 2.1 (0.7-2.1) mmol/L Vent Mode Bipap FiO2 100.0 % Inspiratory BiPAP 18 Expiratory BiPAP 6 Crit Value Called To Crit Value Called By Crit Value Read Back Blood Gas Notified Time Potassium (3.6-5.2) mmol/L Carbon Dioxide (22-30) mmol/L Anion Gap (10-20) BUN (9-20) mg/dL Creatinine (0.8-1.5) mg/dL Est GFR ( Amer) Est GFR (Non-Af Amer) Random Glucose (75-110) mg/dL Lactic Acid (0.7-2.1) mmol/L Calcium (8.6-10.4) mg/dl Phosphorus (2.5-4.5) mg/dL Magnesium (1.6-2.3) mg/dL Total Bilirubin (0.2-1.3) mg/dL AST (17-59) U/L ALT (21-72) U/L Alkaline Phosphatase (38-126) U/L Lactate Dehydrogenase (313-618) U/L Total Protein (6.3-8.3) g/dL Albumin (3.5-5.0) g/dL Globulin (2.2-3.9) gm/dL Albumin/Globulin Ratio (1.0-2.1) Triglycerides (0-149) mg/dL Cholesterol (0-199) mg/dL LDL Cholesterol Direct (0-129) mg/dL HDL Cholesterol (30-70) mg/dL Cortisol AM Sample (4.46-22.7) ug/dL Arterial Blood Potassium 2.7 L (3.6-5.2) mmol/L Urine Osmolality 836 (300-1000) mosm/kg Ur Random Sodium 35 mmol/L Fluid Source Fluid Appearance (CLEAR) Fluid WBC (0.0-300.0) /mm3 Fluid RBC (0.0-0.0) /mm3 Fluid Tot Cell Count (0-0) Fluid Neutrophils (0-0) % Fluid Lymphocytes (0-0) % Fld Monocyte/Macrophag (0-0) % Fluid Comment Urine Opiates Screen Negative (NEGATIVE) Urine Methadone Screen Negative (NEGATIVE) Ur Barbiturates Screen Negative (NEGATIVE) Ur Phencyclidine Scrn Negative (NEGATIVE) Ur Amphetamines Screen Negative (NEGATIVE) U Benzodiazepines Scrn Negative (NEGATIVE) U Oth Cocaine Metabols Negative (NEGATIVE) U Cannabinoids Screen Negative (NEGATIVE) Hepatitis A IgM Ab (NEGATIVE) Hep Bs Antigen (NEGATIVE) Hep B Core IgM Ab (NEGATIVE) Hepatitis C Antibody (NEGATIVE) HIV 1&2 Antibody Screen (NEGATIVE) H.influenzae Type B Ag (NEGATIVE) N.meningitidis ACY/W135 (NEGATIVE) N.meningi B/E.coli K1 Ag (NEGATIVE) Group B Strep Antigen (NEGATIVE) S. pneumoniae Antigen (NEGATIVE) Laboratory Results - last 24 hr 04/14/18 04/15/18 04/15/18 20:08 01:00 05:49 WBC 12.1 H RBC 4.42 Hgb 13.2 Hct 39.6 MCV 89.7 D MCH 29.9 MCHC 33.3 RDW 13.7 Plt Count 162 MPV 10.3 Neut % (Auto) 96.6 H Lymph % (Auto) 2.2 L [place] % (Auto) 0.7 Eos % (Auto) 0.4 Baso % (Auto) 0.1 Neut # (Auto) 11.7 H Lymph # (Auto) 0.3 L [place] # (Auto) 0.1 Eos # (Auto) 0.1 Baso # (Auto) 0.0 Neutrophils % (Manual) 34 L Band Neutrophils % 58 H* Lymphocytes % (Manual) 3 L Reactive Lymphs % 1 H Monocytes % (Manual) 2 Myelocytes % 2 H Toxic Granulation Present Dohle Bodies Present Platelet Estimate Normal Anisocytosis (manual) Slight PT INR APTT Puncture Site Lr pCO2 34 L pO2 270 H HCO3 24.1 ABG pH 7.43 ABG Total CO2 23.6 ABG O2 Saturation 100.0 H ABG Base Excess -1.1 [place] Test Po ABG Potassium 2.7 L A-a O2 Difference 401.0 Respiratory Index 1.5 Sodium 131.0 L Chloride 99.0 Glucose 155 H Lactate 2.1 Vent Mode Bipap FiO2 100.0 Inspiratory BiPAP 18 Expiratory BiPAP 6 Crit Value Called To Crit Value Called By Crit Value Read Back Blood Gas Notified Time Potassium Carbon Dioxide Anion Gap BUN Creatinine Est GFR ( Amer) Est GFR (Non-Af Amer) Random Glucose Lactic Acid Calcium Phosphorus Magnesium Total Bilirubin AST ALT Alkaline Phosphatase Lactate Dehydrogenase Total Protein Albumin Globulin Albumin/Globulin Ratio Triglycerides Cholesterol LDL Cholesterol Direct HDL Cholesterol Cortisol AM Sample Arterial Blood Potassium 2.7 L Urine Osmolality 836 Ur Random Sodium 35 Fluid Source Fluid Appearance Fluid WBC Fluid RBC Fluid Tot Cell Count Fluid Neutrophils Fluid Lymphocytes Fld Monocyte/Macrophag Fluid Comment Urine Opiates Screen Negative Urine Methadone Screen Negative Ur Barbiturates Screen Negative Ur Phencyclidine Scrn Negative Ur Amphetamines Screen Negative U Benzodiazepines Scrn Negative U Oth Cocaine Metabols Negative U Cannabinoids Screen Negative Hepatitis A IgM Ab Hep Bs Antigen Hep B Core IgM Ab Hepatitis C Antibody HIV 1&2 Antibody Screen H.influenzae Type B Ag N.meningitidis ACY/W135 N.meningi B/E.coli K1 Ag Group B Strep Antigen S. pneumoniae Antigen 04/15/18 04/15/18 04/15/18 05:49 05:49 05:49 WBC RBC Hgb Hct MCV MCH MCHC RDW Plt Count MPV Neut % (Auto) Lymph % (Auto) [place] % (Auto) Eos % (Auto) Baso % (Auto) Neut # (Auto) Lymph # (Auto) [place] # (Auto) Eos # (Auto) Baso # (Auto) Neutrophils % (Manual) Band Neutrophils % Lymphocytes % (Manual) Reactive Lymphs % Monocytes % (Manual) Myelocytes % Toxic Granulation Dohle Bodies Platelet Estimate Anisocytosis (manual) PT INR APTT Puncture Site pCO2 pO2 HCO3 ABG pH ABG Total CO2 ABG O2 Saturation ABG Base Excess [place] Test ABG Potassium A-a O2 Difference Respiratory Index Sodium 133 Chloride 99 Glucose Lactate Vent Mode FiO2 Inspiratory BiPAP Expiratory BiPAP Crit Value Called To Crit Value Called By Crit Value Read Back Blood Gas Notified Time Potassium 3.0 L Carbon Dioxide 26 Anion Gap 12 BUN 10 Creatinine 0.6 L Est GFR ( Amer) > 60 Est GFR (Non-Af Amer) > 60 Random Glucose 111 H Lactic Acid Calcium 8.3 L Phosphorus 2.2 L Magnesium 2.4 H Total Bilirubin 1.2 AST 111 H ALT 94 H Alkaline Phosphatase 115 Lactate Dehydrogenase 605 Total Protein 6.4 Albumin 3.3 L Globulin 3.1 Albumin/Globulin Ratio 1.1 Triglycerides 121 Cholesterol 104 LDL Cholesterol Direct < 30 HDL Cholesterol 41 Cortisol AM Sample 22.1 Arterial Blood Potassium Urine Osmolality Ur Random Sodium Fluid Source Fluid Appearance Fluid WBC Fluid RBC Fluid Tot Cell Count Fluid Neutrophils Fluid Lymphocytes Fld Monocyte/Macrophag Fluid Comment Urine Opiates Screen Urine Methadone Screen Ur Barbiturates Screen Ur Phencyclidine Scrn Ur Amphetamines Screen U Benzodiazepines Scrn U Oth Cocaine Metabols U Cannabinoids Screen Hepatitis A IgM Ab Negative Hep Bs Antigen Negative Hep B Core IgM Ab Negative Hepatitis C Antibody Negative HIV 1&2 Antibody Screen H.influenzae Type B Ag N.meningitidis ACY/W135 N.meningi B/E.coli K1 Ag Group B Strep Antigen S. pneumoniae Antigen 04/15/18 04/15/18 04/15/18 05:49 05:49 06:56 WBC RBC Hgb Hct MCV MCH MCHC RDW Plt Count MPV Neut % (Auto) Lymph % (Auto) [place] % (Auto) Eos % (Auto) Baso % (Auto) Neut # (Auto) Lymph # (Auto) [place] # (Auto) Eos # (Auto) Baso # (Auto) Neutrophils % (Manual) Band Neutrophils % Lymphocytes % (Manual) Reactive Lymphs % Monocytes % (Manual) Myelocytes % Toxic Granulation Dohle Bodies Platelet Estimate Anisocytosis (manual) PT INR APTT Puncture Site pCO2 pO2 HCO3 ABG pH ABG Total CO2 ABG O2 Saturation ABG Base Excess [place] Test ABG Potassium A-a O2 Difference Respiratory Index Sodium Chloride Glucose Lactate Vent Mode FiO2 Inspiratory BiPAP Expiratory BiPAP Crit Value Called To Crit Value Called By Crit Value Read Back Blood Gas Notified Time Potassium Carbon Dioxide Anion Gap BUN Creatinine Est GFR ( Amer) Est GFR (Non-Af Amer) Random Glucose Lactic Acid 1.4 Calcium Phosphorus Magnesium Total Bilirubin AST ALT Alkaline Phosphatase Lactate Dehydrogenase Total Protein Albumin Globulin Albumin/Globulin Ratio Triglycerides Cholesterol LDL Cholesterol Direct HDL Cholesterol Cortisol AM Sample Arterial Blood Potassium Urine Osmolality Ur Random Sodium Fluid Source Fluid Appearance Fluid WBC Fluid RBC Fluid Tot Cell Count Fluid Neutrophils Fluid Lymphocytes Fld Monocyte/Macrophag Fluid Comment Urine Opiates Screen Urine Methadone Screen Ur Barbiturates Screen Ur Phencyclidine Scrn Ur Amphetamines Screen U Benzodiazepines Scrn U Oth Cocaine Metabols U Cannabinoids Screen Hepatitis A IgM Ab Hep Bs Antigen Hep B Core IgM Ab Hepatitis C Antibody HIV 1&2 Antibody Screen Negative H.influenzae Type B Ag Negative N.meningitidis ACY/W135 Negative N.meningi B/E.coli K1 Ag Negative Group B Strep Antigen Negative S. pneumoniae Antigen Negative 04/15/18 04/15/18 04/15/18 12:00 13:49 16:25 WBC RBC Hgb Hct MCV MCH MCHC RDW Plt Count MPV Neut % (Auto) Lymph % (Auto) [place] % (Auto) Eos % (Auto) Baso % (Auto) Neut # (Auto) Lymph # (Auto) [place] # (Auto) Eos # (Auto) Baso # (Auto) Neutrophils % (Manual) Band Neutrophils % Lymphocytes % (Manual) Reactive Lymphs % Monocytes % (Manual) Myelocytes % Toxic Granulation Dohle Bodies Platelet Estimate Anisocytosis (manual) PT 13.0 H INR 1.2 APTT 35 H Puncture Site Pleural fluid pCO2 59 H pO2 23 L* HCO3 4.7 L* ABG pH 6.87 L* ABG Total CO2 ABG O2 Saturation ABG Base Excess -23.0 L [place] Test Na ABG Potassium A-a O2 Difference Respiratory Index Sodium Chloride Glucose Lactate Vent Mode FiO2 Inspiratory BiPAP Expiratory BiPAP Crit Value Called To Dr. 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 Crit Value Read Back Yes Blood Gas Notified Time 1215 Potassium Carbon Dioxide Anion Gap BUN Creatinine Est GFR ( Amer) Est GFR (Non-Af Amer) Random Glucose Lactic Acid Calcium Phosphorus Magnesium Total Bilirubin AST ALT Alkaline Phosphatase Lactate Dehydrogenase Total Protein Albumin Globulin Albumin/Globulin Ratio Triglycerides Cholesterol LDL Cholesterol Direct HDL Cholesterol Cortisol AM Sample Arterial Blood Potassium Urine Osmolality Ur Random Sodium Fluid Source Pleural Fluid Appearance Cloudy Fluid WBC 4756651.0 H Fluid RBC 50509.0 H Fluid Tot Cell Count 100 H Fluid Neutrophils 95.0 H Fluid Lymphocytes 2.0 H Fld Monocyte/Macrophag 3 H Fluid Comment Urine Opiates Screen Urine Methadone Screen Ur Barbiturates Screen Ur Phencyclidine Scrn Ur Amphetamines Screen U Benzodiazepines Scrn U Oth Cocaine Metabols U Cannabinoids Screen Hepatitis A IgM Ab Hep Bs Antigen Hep B Core IgM Ab Hepatitis C Antibody HIV 1&2 Antibody Screen H.influenzae Type B Ag N.meningitidis ACY/W135 N.meningi B/E.coli K1 Ag Group B Strep Antigen S. pneumoniae Antigen Radiology Impressions: Radiology Impressions Duplex Scan Lower Extremity Artery 04/14/18 00:34 IMPRESSION: Right: No evidence of deep or superficial vein thrombosis of the right lower extremity. Normal valve function noted of the right side. Left: No evidence of deep or superficial vein thrombosis of the left lower extremity. Normal valve function noted of the left side. Chest X-Ray 04/15/18 08:30 IMPRESSION: Large right pleural effusion. Likely superimposed consolidation in the right upper lobe as well as possible right lower lobe. Chest X-Ray 04/15/18 12:08 IMPRESSION: Cardiomegaly. Hypoinflation. Improving but persistent small right-sided pleural effusion and consolidation. Additional patchy opacities within the right hemithorax may reflect infiltrate. Recommend continued follow-up to resolution. EKG/Cardiology Studies: Cardiology / EKG Studies 04/14/18 22:49 EKG [ELECTROCARDIOGRAM] Routine Comment: Mode Of Transportation: PORTABLE Reason For Exam: tachycardia Critical Care Progress Note - Nutrition Nutrition: Nutrition Category Date Time Status Regular Diet [DIET] Diets 04/14/18 Breakfast Active Attending/Attestation - Attestation I have personally seen and examined this patient.: Yes I have fully participated in the care of the patient.: Yes I have reviewed all pertinent clinical information: Yes Notes (Text): 04/15/18 16:52 Patient seen and examined in the intensive care unit. Thoracentesis procedure done under local anesthesia and aseptic condition right sixth intercostal space Thick pus aspirated total of 1200 cc with pH of 6.95 Thoracic evaluation Antibiotics as per infectious disease Follow-up culture and sensitivity Continue BiPAP
[2018-04-15 11:47] LABS: BASO % 0.1 % (0.0-2.0); EOS % 0.4 % (0.0-4.0); LYMPH % 2.2 % (20.0-40.0); MONO % 0.7 % (0.0-10.0); NEUT # 11.7 K/uL (1.8-7.0); NEUT % 96.6 % (50.0-75.0)
[2018-04-15 11:48] LABS: EOS # 0.1 K/uL (0.0-0.7); LYMPH # 0.3 K/uL (1.0-4.3); MONO # 0.1 K/uL (0.0-0.8)
[2018-04-15 11:56] LABS: BANDS 58 % (0-2); LYMPHOCYTE 3 % (20-40); MONOCYTE 2 % (0-10); MYELOCYTE 2 % (0-0); NEUTROPHIL 34 % (50-75); REACTIVE LYMPHOCYTES 1 % (0-0); TOTAL CELLS COUNTED 100
[2018-04-15 11:57] LABS: ANISOCYTOSIS SLIGHT; PLATELET ESTIMATE NORMAL (NORMAL); TOXIC GRANULATION PRESENT
[2018-04-15] MEDS ORDERED: Morphine 4 MG/ML VIAL ONE (12:26)
[2018-04-15] MEDS ORDERED: Morphine 4 MG/ML VIAL IVP STA (12:37)
[2018-04-15] MEDS ORDERED: Labetalol 25mg/5ml Syringe IVP STA (12:49)
--- NOTE | 2018-04-15 12:53 | CP.PCM.CON ---
History of Present Illness - History of Present Illness History of Present Illness: Surgery consult note for Dr. Meza. 43M w/ no PMhx presented to ED on 04/13 for RLQ pain X 3days associated with subjective fevers & chills for 3 days. Patient reports productive cough of yellow/brown phlegm. Patient was started on abx; however, patient began to have respiratory distress yesterday. Per radiology, consolidation on R lower lung. Patient placed on bipap with some improvement. Patient had bedside thoracentesis today 04/16 and expressed over 1 L of purulent fluid. CT surgery consulted for possible empyema. Patient crrently reports he is feeling fine and does not have any complaints. Patient denies chest pain, SOB, nausea, vomiting, abdominal pain, dysuria, hematuria. PMHx: denies PSHx: denies Home Medications: Pt states he took "antibiotic" at home, does not recall what Allergies: NKDA Social Hx: social drinker, denies tobacco or illicit drug use. 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 Family Hx: unknown Review of Systems - Review of Systems All systems: reviewed and no additional remarkable complaints except - Constitutional Constitutional: As Per HPI Past Patient History - Past Medical History & Family History Past Medical History?: Yes - Past Social History Smoking Status: Never Smoked - CARDIAC Hx Cardiac Disorders: No - PULMONARY Hx Respiratory Disorders: No - NEUROLOGICAL Hx Neurological Disorder: No - HEENT Hx HEENT Problems: No - RENAL Hx Chronic Kidney Disease: No - ENDOCRINE/METABOLIC Hx Endocrine Disorders: No - HEMATOLOGICAL/ONCOLOGICAL Hx Blood Disorders: No - INTEGUMENTARY Hx Dermatological Problems: No - MUSCULOSKELETAL/RHEUMATOLOGICAL Hx Musculoskeletal Disorders: No Hx Falls: No - GASTROINTESTINAL Hx Gastrointestinal Disorders: No - GENITOURINARY/GYNECOLOGICAL Hx Genitourinary Disorders: No - PSYCHIATRIC Hx Substance Use: No - SURGICAL HISTORY Hx Surgeries: No - ANESTHESIA Hx Anesthesia: No Hx Anesthesia Reactions: No Hx Malignant Hyperthermia: No Has any member of the family had a problem w/ anesthesia?: No Meds Allergies/Adverse Reactions: Allergies Allergy/AdvReac Type Severity Reaction Status Date / Time No Known Allergies Allergy Verified 04/13/18 20:35 - Medications Medications: Current Medications Acetaminophen (Tylenol 325mg Tab) 650 mg PO Q6H PRN PRN Reason: Fever >100.4 F Last Admin: 04/14/18 20:10 Dose: 650 mg Acetylcysteine (Acetylcysteine 20%) 4 ml INH RQ6 [facility] Last Admin: 04/15/18 08:00 Dose: 4 ml Albuterol/Ipratropium (Duoneb 3 Mg/0.5 Mg (3 Ml) Ud) 3 ml INH RQ6 [facility] Last Admin: 04/15/18 08:00 Dose: 3 ml Docusate Sodium (Colace) 100 mg PO TID [facility] Last Admin: 04/15/18 09:00 Dose: 100 mg Enoxaparin Sodium (Lovenox) 40 mg SC DAILY [facility] Last Admin: 04/15/18 09:01 Dose: 40 mg Folic Acid (Folic Acid) 1 mg PO DAILY [facility] Last Admin: 04/15/18 09:01 Dose: 1 mg Azithromycin 500 mg/ Sodium (Chloride) 250 mls @ 250 mls/hr IVPB DAILY [facility]; Protocol Last Admin: 04/15/18 09:03 Dose: 250 mls/hr Piperacillin Sod/Tazobactam Sod (Zosyn 3.375 Gm Iv Premix) 3.375 gm in 50 mls @ 100 mls/hr IVPB Q6H [facility]; Protocol Last Admin: 04/15/18 09:02 Dose: 100 mls/hr Potassium Phosphate 15 mmole/ (Sodium Chloride) 255 mls @ 42.5 mls/hr IVPB ONCE ONE Stop: 04/15/18 14:59 Last Admin: 04/15/18 10:27 Dose: 42.5 mls/hr Vancomycin HCl 1 gm/ Sodium (Chloride) 250 mls @ 166.7 mls/hr IVPB ONCE ONE; Protocol Stop: 04/15/18 14:29 Vancomycin/Sodium Chloride (Vancomycin 1 Gm/Ns 200 Ml) 1 gm in 200 mls @ 133 mls/hr IVPB DAILY [facility]; Protocol Stop: 04/21/18 10:01 Lactobacillus Acidophilus (Bacid Acidophilus) 1 cap PO BID [facility] Last Admin: 04/15/18 09:00 Dose: 1 cap Lorazepam (Ativan) 1 mg IVP Q6H PRN PRN Reason: Anxiety Multivitamins (Hexavitamin) 1 tab PO DAILY [facility] Last Admin: 04/15/18 09:01 Dose: 1 tab Oseltamivir Phosphate (Tamiflu Cap) 75 mg PO BID [facility]; Protocol Stop: 04/19/18 18:57 Last Admin: 04/15/18 09:02 Dose: 75 mg Pantoprazole Sodium (Protonix Inj) 40 mg IVP DAILY [facility] Last Admin: 04/15/18 09:02 Dose: 40 mg Sennosides (Senokot Tab) 8.6 mg PO BID [facility] Last Admin: 04/15/18 10:50 Dose: Not Given Thiamine HCl (Vitamin B1 Tab) 100 mg PO DAILY [facility] Last Admin: 04/15/18 09:02 Dose: 100 mg Physical Exam - Constitutional Appears: Non-toxic, No Acute Distress - Head Exam Head Exam: NORMAL INSPECTION - Eye Exam Eye Exam: Normal appearance - ENT Exam ENT Exam: Mucous Membranes Moist - Respiratory Exam Respiratory Exam: Rales Additional comments: Rals on R lower lobe - Cardiovascular Exam Cardiovascular Exam: +S1, +S2 - GI/Abdominal Exam GI & Abdominal Exam: Normal Bowel Sounds, Soft - Rectal Exam Rectal Exam: absent: Black Stool - Extremities Exam Extremities exam: Negative for: calf tenderness, pedal edema - Back Exam Back exam: absent: CVA tenderness (L), CVA tenderness (R) Additional comments: Tenderness around area of thoracentesis dressing clean, dry, intact - Neurological Exam Neurological exam: Alert, Oriented x3 - Psychiatric Exam Psychiatric exam: Normal Affect, Normal Mood - Skin Skin Exam: Dry, Intact, Normal Color, Warm Results - Vital Signs Recent Vital Signs: Last Vital Signs Temp 98.9 F 04/15/18 08:00 Pulse 126 H 04/15/18 11:00 Resp 19 04/15/18 11:00 BP 114/75 04/15/18 11:00 Pulse Ox 96 04/15/18 11:00 - Labs Result Diagrams: 04/15/18 05:49 04/15/18 05:49 Labs: Laboratory Results - last 24 hr 04/14/18 04/15/18 04/15/18 20:08 01:00 05:49 WBC 12.1 H RBC 4.42 Hgb 13.2 Hct 39.6 MCV 89.7 D MCH 29.9 MCHC 33.3 RDW 13.7 Plt Count 162 MPV 10.3 Neut % (Auto) 96.6 H Lymph % (Auto) 2.2 L [place] % (Auto) 0.7 Eos % (Auto) 0.4 Baso % (Auto) 0.1 Neut # (Auto) 11.7 H Lymph # (Auto) 0.3 L [place] # (Auto) 0.1 Eos # (Auto) 0.1 Baso # (Auto) 0.0 Neutrophils % (Manual) 34 L Band Neutrophils % 58 H* Lymphocytes % (Manual) 3 L Reactive Lymphs % 1 H Monocytes % (Manual) 2 Myelocytes % 2 H Toxic Granulation Present Dohle Bodies Present Platelet Estimate Normal Anisocytosis (manual) Slight Puncture Site Lr pCO2 34 L pO2 270 H HCO3 24.1 ABG pH 7.43 ABG Total CO2 23.6 ABG O2 Saturation 100.0 H ABG Base Excess -1.1 [place] Test Po ABG Potassium 2.7 L A-a O2 Difference 401.0 Respiratory Index 1.5 Sodium 131.0 L Chloride 99.0 Glucose 155 H Lactate 2.1 Vent Mode Bipap FiO2 100.0 Inspiratory BiPAP 18 Expiratory BiPAP 6 Potassium Carbon Dioxide Anion Gap BUN Creatinine Est GFR ( Amer) Est GFR (Non-Af Amer) Random Glucose Lactic Acid Calcium Phosphorus Magnesium Total Bilirubin AST ALT Alkaline Phosphatase Lactate Dehydrogenase Total Protein Albumin Globulin Albumin/Globulin Ratio Triglycerides Cholesterol LDL Cholesterol Direct HDL Cholesterol Cortisol AM Sample Arterial Blood Potassium 2.7 L Urine Osmolality 836 Ur Random Sodium 35 Urine Opiates Screen Negative Urine Methadone Screen Negative Ur Barbiturates Screen Negative Ur Phencyclidine Scrn Negative Ur Amphetamines Screen Negative U Benzodiazepines Scrn Negative U Oth Cocaine Metabols Negative U Cannabinoids Screen Negative Hepatitis A IgM Ab Hep Bs Antigen Hep B Core IgM Ab Hepatitis C Antibody HIV 1&2 Antibody Screen H.influenzae Type B Ag N.meningitidis ACY/W135 N.meningi B/E.coli K1 Ag Group B Strep Antigen S. pneumoniae Antigen 04/15/18 04/15/18 04/15/18 05:49 05:49 05:49 WBC RBC Hgb Hct MCV MCH MCHC RDW Plt Count MPV Neut % (Auto) Lymph % (Auto) [place] % (Auto) Eos % (Auto) Baso % (Auto) Neut # (Auto) Lymph # (Auto) [place] # (Auto) Eos # (Auto) Baso # (Auto) Neutrophils % (Manual) Band Neutrophils % Lymphocytes % (Manual) Reactive Lymphs % Monocytes % (Manual) Myelocytes % Toxic Granulation Dohle Bodies Platelet Estimate Anisocytosis (manual) Puncture Site pCO2 pO2 HCO3 ABG pH ABG Total CO2 ABG O2 Saturation ABG Base Excess [place] Test ABG Potassium A-a O2 Difference Respiratory Index Sodium 133 Chloride 99 Glucose Lactate Vent Mode FiO2 Inspiratory BiPAP Expiratory BiPAP Potassium 3.0 L Carbon Dioxide 26 Anion Gap 12 BUN 10 Creatinine 0.6 L Est GFR ( Amer) > 60 Est GFR (Non-Af Amer) > 60 Random Glucose 111 H Lactic Acid Calcium 8.3 L Phosphorus 2.2 L Magnesium 2.4 H Total Bilirubin 1.2 AST 111 H ALT 94 H Alkaline Phosphatase 115 Lactate Dehydrogenase 605 Total Protein 6.4 Albumin 3.3 L Globulin 3.1 Albumin/Globulin Ratio 1.1 Triglycerides 121 Cholesterol 104 LDL Cholesterol Direct < 30 HDL Cholesterol 41 Cortisol AM Sample 22.1 Arterial Blood Potassium Urine Osmolality Ur Random Sodium Urine Opiates Screen Urine Methadone Screen Ur Barbiturates Screen Ur Phencyclidine Scrn Ur Amphetamines Screen U Benzodiazepines Scrn U Oth Cocaine Metabols U Cannabinoids Screen Hepatitis A IgM Ab Negative Hep Bs Antigen Negative Hep B Core IgM Ab Negative Hepatitis C Antibody Negative HIV 1&2 Antibody Screen H.influenzae Type B Ag N.meningitidis ACY/W135 N.meningi B/E.coli K1 Ag Group B Strep Antigen S. pneumoniae Antigen 04/15/18 04/15/18 04/15/18 05:49 05:49 06:56 WBC RBC Hgb Hct MCV MCH MCHC RDW Plt Count MPV Neut % (Auto) Lymph % (Auto) [place] % (Auto) Eos % (Auto) Baso % (Auto) Neut # (Auto) Lymph # (Auto) [place] # (Auto) Eos # (Auto) Baso # (Auto) Neutrophils % (Manual) Band Neutrophils % Lymphocytes % (Manual) Reactive Lymphs % Monocytes % (Manual) Myelocytes % Toxic Granulation Dohle Bodies Platelet Estimate Anisocytosis (manual) Puncture Site pCO2 pO2 HCO3 ABG pH ABG Total CO2 ABG O2 Saturation ABG Base Excess [place] Test ABG Potassium A-a O2 Difference Respiratory Index Sodium Chloride Glucose Lactate Vent Mode FiO2 Inspiratory BiPAP Expiratory BiPAP Potassium Carbon Dioxide Anion Gap BUN Creatinine Est GFR ( Amer) Est GFR (Non-Af Amer) Random Glucose Lactic Acid 1.4 Calcium Phosphorus Magnesium Total Bilirubin AST ALT Alkaline Phosphatase Lactate Dehydrogenase Total Protein Albumin Globulin Albumin/Globulin Ratio Triglycerides Cholesterol LDL Cholesterol Direct HDL Cholesterol Cortisol AM Sample Arterial Blood Potassium Urine Osmolality Ur Random Sodium Urine Opiates Screen Urine Methadone Screen Ur Barbiturates Screen Ur Phencyclidine Scrn Ur Amphetamines Screen U Benzodiazepines Scrn U Oth Cocaine Metabols U Cannabinoids Screen Hepatitis A IgM Ab Hep Bs Antigen Hep B Core IgM Ab Hepatitis C Antibody HIV 1&2 Antibody Screen Negative H.influenzae Type B Ag Negative N.meningitidis ACY/W135 Negative N.meningi B/E.coli K1 Ag Negative Group B Strep Antigen Negative S. pneumoniae Antigen Negative Assessment & Plan - Assessment and Plan (Free Text) Assessment: 43M w/ s/p bedside thoracentesis, consulted for possible empyema: Plan: - F/u Chest CT w/ IV - F/u fluid studies from thoracenties - Will see surgical intervention pending results - D/w Dr. Susana Morales, PGY1
--- NOTE | 2018-04-15 13:04 | RAD ---
HISTORY: s/p thoracentesis COMPARISON: Chest x-ray performed 04/15/18 TECHNIQUE: Chest, one view. FINDINGS: Examination limited by habitus, hypoinflation, and patient obliquity. LUNGS: Small right-sided pleural effusion and consolidation. Additional patchy opacities within the right hemithorax may reflect infection and/or atelectasis. No definite pneumothorax. CARDIOVASCULAR: Cardiomegaly. No significant atherosclerotic calcification present. OSSEOUS STRUCTURES: Degenerative changes. VISUALIZED UPPER ABDOMEN: Unremarkable. OTHER FINDINGS: None. IMPRESSION: Cardiomegaly. Hypoinflation. Improving but persistent small right-sided pleural effusion and consolidation. Additional patchy opacities within the right hemithorax may reflect infiltrate. Recommend continued follow-up to resolution.
--- NOTE | 2018-04-15 13:48 | CP.PCM.CON ---
History of Present Illness - History of Present Illness History of Present Illness: dictated Past Patient History - Past Medical History & Family History Past Medical History?: Yes - Past Social History Smoking Status: Never Smoked - CARDIAC Hx Cardiac Disorders: No - PULMONARY Hx Respiratory Disorders: No - NEUROLOGICAL Hx Neurological Disorder: No - HEENT Hx HEENT Problems: No - RENAL Hx Chronic Kidney Disease: No - ENDOCRINE/METABOLIC Hx Endocrine Disorders: No - HEMATOLOGICAL/ONCOLOGICAL Hx Blood Disorders: No - INTEGUMENTARY Hx Dermatological Problems: No - MUSCULOSKELETAL/RHEUMATOLOGICAL Hx Musculoskeletal Disorders: No Hx Falls: No - GASTROINTESTINAL Hx Gastrointestinal Disorders: No - GENITOURINARY/GYNECOLOGICAL Hx Genitourinary Disorders: No - PSYCHIATRIC Hx Substance Use: No - SURGICAL HISTORY Hx Surgeries: No - ANESTHESIA Hx Anesthesia: No Hx Anesthesia Reactions: No Hx Malignant Hyperthermia: No Has any member of the family had a problem w/ anesthesia?: No Meds Allergies/Adverse Reactions: Allergies Allergy/AdvReac Type Severity Reaction Status Date / Time No Known Allergies Allergy Verified 04/13/18 20:35 - Medications Medications: Current Medications Acetaminophen (Tylenol 325mg Tab) 650 mg PO Q6H PRN PRN Reason: Fever >100.4 F Last Admin: 04/14/18 20:10 Dose: 650 mg Acetylcysteine (Acetylcysteine 20%) 4 ml INH RQ6 [facility] Last Admin: 04/15/18 13:39 Dose: 4 ml Albuterol/Ipratropium (Duoneb 3 Mg/0.5 Mg (3 Ml) Ud) 3 ml INH RQ6 [facility] Last Admin: 04/15/18 13:39 Dose: 3 ml Docusate Sodium (Colace) 100 mg PO TID [facility] Last Admin: 04/15/18 09:00 Dose: 100 mg Enoxaparin Sodium (Lovenox) 40 mg SC DAILY [facility] Last Admin: 04/15/18 09:01 Dose: 40 mg Folic Acid (Folic Acid) 1 mg PO DAILY [facility] Last Admin: 04/15/18 09:01 Dose: 1 mg Piperacillin Sod/Tazobactam Sod (Zosyn 3.375 Gm Iv Premix) 3.375 gm in 50 mls @ 100 mls/hr IVPB Q6H [facility]; Protocol Last Admin: 04/15/18 09:02 Dose: 100 mls/hr Potassium Phosphate 15 mmole/ (Sodium Chloride) 255 mls @ 42.5 mls/hr IVPB ONCE ONE Stop: 04/15/18 14:59 Last Admin: 04/15/18 10:27 Dose: 42.5 mls/hr Vancomycin HCl 1 gm/ Sodium (Chloride) 250 mls @ 166.7 mls/hr IVPB ONCE [facility]; Protocol Stop: 04/15/18 14:29 Vancomycin/Sodium Chloride (Vancomycin 1 Gm/Ns 200 Ml) 1 gm in 200 mls @ 133 mls/hr IVPB DAILY [facility]; Protocol Stop: 04/21/18 10:01 Vancomycin HCl 1,250 mg/ (Sodium Chloride) 250 mls @ 166.6 mls/hr IVPB Q12H [facility]; Protocol Clindamycin Phosphate 600 mg/ (Sodium Chloride) 104 mls @ 100 mls/hr IV Q8H [facility]; Protocol Lactobacillus Acidophilus (Bacid Acidophilus) 1 cap PO BID [facility] Last Admin: 04/15/18 09:00 Dose: 1 cap Lorazepam (Ativan) 1 mg IVP Q6H PRN PRN Reason: Anxiety Multivitamins (Hexavitamin) 1 tab PO DAILY [facility] Last Admin: 04/15/18 09:01 Dose: 1 tab Oseltamivir Phosphate (Tamiflu Cap) 75 mg PO BID [facility]; Protocol Stop: 04/19/18 18:57 Last Admin: 04/15/18 09:02 Dose: 75 mg Pantoprazole Sodium (Protonix Inj) 40 mg IVP DAILY [facility] Last Admin: 04/15/18 09:02 Dose: 40 mg Sennosides (Senokot Tab) 8.6 mg PO BID [facility] Last Admin: 04/15/18 10:50 Dose: Not Given Thiamine HCl (Vitamin B1 Tab) 100 mg PO DAILY [facility] Last Admin: 04/15/18 09:02 Dose: 100 mg Results - Vital Signs Recent Vital Signs: Last Vital Signs Temp 98.8 F 04/15/18 12:00 Pulse 128 H 04/15/18 12:37 Resp 23 04/15/18 12:37 BP 132/77 04/15/18 12:37 Pulse Ox 97 04/15/18 12:37 - Labs Result Diagrams: 04/15/18 05:49 04/15/18 05:49 Labs: Laboratory Results - last 24 hr 01/22/19 01/23/19 01/23/19 20:08 01:00 05:49 WBC 12.1 H RBC 4.42 Hgb 13.2 Hct 39.6 MCV 89.7 D MCH 29.9 MCHC 33.3 RDW 13.7 Plt Count 162 MPV 10.3 Neut % (Auto) 96.6 H Lymph % (Auto) 2.2 L [place] % (Auto) 0.7 Eos % (Auto) 0.4 Baso % (Auto) 0.1 Neut # (Auto) 11.7 H Lymph # (Auto) 0.3 L [place] # (Auto) 0.1 Eos # (Auto) 0.1 Baso # (Auto) 0.0 Neutrophils % (Manual) 34 L Band Neutrophils % 58 H* Lymphocytes % (Manual) 3 L Reactive Lymphs % 1 H Monocytes % (Manual) 2 Myelocytes % 2 H Toxic Granulation Present Dohle Bodies Present Platelet Estimate Normal Anisocytosis (manual) Slight Puncture Site Lr pCO2 34 L pO2 270 H HCO3 24.1 ABG pH 7.43 ABG Total CO2 23.6 ABG O2 Saturation 100.0 H ABG Base Excess -1.1 [place] Test Po ABG Potassium 2.7 L A-a O2 Difference 401.0 Respiratory Index 1.5 Sodium 131.0 L Chloride 99.0 Glucose 155 H Lactate 2.1 Vent Mode Bipap FiO2 100.0 Inspiratory BiPAP 18 Expiratory BiPAP 6 Potassium Carbon Dioxide Anion Gap BUN Creatinine Est GFR ( Amer) Est GFR (Non-Af Amer) Random Glucose Lactic Acid Calcium Phosphorus Magnesium Total Bilirubin AST ALT Alkaline Phosphatase Lactate Dehydrogenase Total Protein Albumin Globulin Albumin/Globulin Ratio Triglycerides Cholesterol LDL Cholesterol Direct HDL Cholesterol Cortisol AM Sample Arterial Blood Potassium 2.7 L Urine Osmolality 836 Ur Random Sodium 35 Urine Opiates Screen Negative Urine Methadone Screen Negative Ur Barbiturates Screen Negative Ur Phencyclidine Scrn Negative Ur Amphetamines Screen Negative U Benzodiazepines Scrn Negative U Oth Cocaine Metabols Negative U Cannabinoids Screen Negative Hepatitis A IgM Ab Hep Bs Antigen Hep B Core IgM Ab Hepatitis C Antibody HIV 1&2 Antibody Screen H.influenzae Type B Ag N.meningitidis ACY/W135 N.meningi B/E.coli K1 Ag Group B Strep Antigen S. pneumoniae Antigen 04/15/18 04/15/18 04/15/18 05:49 05:49 05:49 WBC RBC Hgb Hct MCV MCH MCHC RDW Plt Count MPV Neut % (Auto) Lymph % (Auto) [place] % (Auto) Eos % (Auto) Baso % (Auto) Neut # (Auto) Lymph # (Auto) [place] # (Auto) Eos # (Auto) Baso # (Auto) Neutrophils % (Manual) Band Neutrophils % Lymphocytes % (Manual) Reactive Lymphs % Monocytes % (Manual) Myelocytes % Toxic Granulation Dohle Bodies Platelet Estimate Anisocytosis (manual) Puncture Site pCO2 pO2 HCO3 ABG pH ABG Total CO2 ABG O2 Saturation ABG Base Excess [place] Test ABG Potassium A-a O2 Difference Respiratory Index Sodium 133 Chloride 99 Glucose Lactate Vent Mode FiO2 Inspiratory BiPAP Expiratory BiPAP Potassium 3.0 L Carbon Dioxide 26 Anion Gap 12 BUN 10 Creatinine 0.6 L Est GFR ( Amer) > 60 Est GFR (Non-Af Amer) > 60 Random Glucose 111 H Lactic Acid Calcium 8.3 L Phosphorus 2.2 L Magnesium 2.4 H Total Bilirubin 1.2 AST 111 H ALT 94 H Alkaline Phosphatase 115 Lactate Dehydrogenase 605 Total Protein 6.4 Albumin 3.3 L Globulin 3.1 Albumin/Globulin Ratio 1.1 Triglycerides 121 Cholesterol 104 LDL Cholesterol Direct < 30 HDL Cholesterol 41 Cortisol AM Sample 22.1 Arterial Blood Potassium Urine Osmolality Ur Random Sodium Urine Opiates Screen Urine Methadone Screen Ur Barbiturates Screen Ur Phencyclidine Scrn Ur Amphetamines Screen U Benzodiazepines Scrn U Oth Cocaine Metabols U Cannabinoids Screen Hepatitis A IgM Ab Negative Hep Bs Antigen Negative Hep B Core IgM Ab Negative Hepatitis C Antibody Negative HIV 1&2 Antibody Screen H.influenzae Type B Ag N.meningitidis ACY/W135 N.meningi B/E.coli K1 Ag Group B Strep Antigen S. pneumoniae Antigen 04/15/18 04/15/18 04/15/18 05:49 05:49 06:56 WBC RBC Hgb Hct MCV MCH MCHC RDW Plt Count MPV Neut % (Auto) Lymph % (Auto) [place] % (Auto) Eos % (Auto) Baso % (Auto) Neut # (Auto) Lymph # (Auto) [place] # (Auto) Eos # (Auto) Baso # (Auto) Neutrophils % (Manual) Band Neutrophils % Lymphocytes % (Manual) Reactive Lymphs % Monocytes % (Manual) Myelocytes % Toxic Granulation Dohle Bodies Platelet Estimate Anisocytosis (manual) Puncture Site pCO2 pO2 HCO3 ABG pH ABG Total CO2 ABG O2 Saturation ABG Base Excess [place] Test ABG Potassium A-a O2 Difference Respiratory Index Sodium Chloride Glucose Lactate Vent Mode FiO2 Inspiratory BiPAP Expiratory BiPAP Potassium Carbon Dioxide Anion Gap BUN Creatinine Est GFR ( Amer) Est GFR (Non-Af Amer) Random Glucose Lactic Acid 1.4 Calcium Phosphorus Magnesium Total Bilirubin AST ALT Alkaline Phosphatase Lactate Dehydrogenase Total Protein Albumin Globulin Albumin/Globulin Ratio Triglycerides Cholesterol LDL Cholesterol Direct HDL Cholesterol Cortisol AM Sample Arterial Blood Potassium Urine Osmolality Ur Random Sodium Urine Opiates Screen Urine Methadone Screen Ur Barbiturates Screen Ur Phencyclidine Scrn Ur Amphetamines Screen U Benzodiazepines Scrn U Oth Cocaine Metabols U Cannabinoids Screen Hepatitis A IgM Ab Hep Bs Antigen Hep B Core IgM Ab Hepatitis C Antibody HIV 1&2 Antibody Screen Negative H.influenzae Type B Ag Negative N.meningitidis ACY/W135 Negative N.meningi B/E.coli K1 Ag Negative Group B Strep Antigen Negative S. pneumoniae Antigen Negative
[2018-04-15 13:52] LABS: BODY FLUID TYPE PLEURAL
--- NOTE | 2018-04-15 14:02 | VASCLAB ---
Date of service: 04/14/2018 PROCEDURE: Lower Extremity Venous Duplex Exam. HISTORY: R>L leg swelling PRIORS: None. TECHNIQUE: Bilateral common femoral, femoral, popliteal and posterior tibial, peroneal and great saphenous veins were evaluated. Flow was assessed with color Doppler, compressibility, assessment of phasic flow and augmentation response. Report prepared by PONCHO Queen FINDINGS: RIGHT: 1. Common Femoral Vein: 1.1. Compressibility - Fully compressible: Thrombus - None : Flow - Phasic: Augmentation -Normal: Reflux - None. 2. Femoral Vein: 2.1. Compressibility - Fully compressible: Thrombus - None : Flow - Phasic: Augmentation -Normal: Reflux - None. 3. Popliteal Vein: 3.1. Compressibility - Fully compressible: Thrombus - None : Flow - Phasic: Augmentation -Normal: Reflux - None. 4. Posterior Tibial Vein: 4.1. Compressibility - Fully compressible: Thrombus - None: Flow - Phasic: Augmentation -Normal: Reflux - None. 5. Peroneal Vein: 5.1. Compressibility - Fully compressible: Thrombus - None: Flow - Phasic: Augmentation -Normal: Reflux - None. 6. Great Saphenous Vein: 6.1. Compressibility - Fully compressible: Thrombus - None: Flow - Phasic: Augmentation - Normal: Reflux - None. LEFT: 1. Common Femoral Vein: 1.1. Compressibility - Fully compressible: Thrombus - None: Flow - Phasic: Augmentation -Normal: Reflux - None. 2. Femoral Vein: 2.1. Compressibility - Fully compressible: Thrombus - None: Flow - Phasic: Augmentation -Normal: Reflux - None. 3. Popliteal Vein: 3.1. Compressibility - Fully compressible: Thrombus - None : Flow - Phasic: Augmentation -Normal: Reflux - None. 4. Posterior Tibial Vein: 4.1. Compressibility - Fully compressible: Thrombus - None: Flow - Phasic: Augmentation -Normal: Reflux - None. 5. Peroneal Vein: 5.1. Compressibility - Fully compressible: Thrombus - None: Flow - Phasic: Augmentation -Normal: Reflux - None. 6. Great Saphenous Vein: 6.1. Compressibility - Fully compressible: Thrombus - None: Flow - Phasic: Augmentation - Normal: Reflux - None. OTHER FINDINGS: Right: None significant. Left: None significant. IMPRESSION: Right: No evidence of deep or superficial vein thrombosis of the right lower extremity. Normal valve function noted of the right side. Left: No evidence of deep or superficial vein thrombosis of the left lower extremity. Normal valve function noted of the left side.
[2018-04-15 14:51] LABS: ARTERIAL BLOOD GAS PH 6.87 (7.35-7.45)
[2018-04-15 14:52] LABS: ARTERIAL BLOOD GAS HCO3 4.7 mmol/L (21-28); ARTERIAL BLOOD GAS PCO2 59 mm/Hg (35-45); ARTERIAL BLOOD GAS PO2 23 mm/Hg (80-100)
[2018-04-15 15:27] LABS: BF GROSS APPEARANCE CLOUDY (CLEAR); BODY FLUID MONO/MACROPHAGE 3 % (0-0); BODY FLUID TOTAL COUNT 100 (0-0)
[2018-04-15 16:40] LABS: INR 1.2
[2018-04-15] MEDS: Clindamycin 600 MG in Sodium Chloride 0.9% 100 ML IV SCH (16:53)
[2018-04-15] MEDS ORDERED: Iohexol 350mg/ml 100 ML ONE (17:20)
--- NOTE | 2018-04-15 17:44 | CP.PCM.PN ---
Subjective - Date & Time of Evaluation Date of Evaluation: 04/15/17 Time of Evaluation: 17:00 - Subjective Subjective: Hospitalist Progress Note Patient was seen and examined at 5:00 PM 43 year old male who was admitted on 04/13/18 for evaluation of RLQ abdominal pain with subjective fevers/chills and complaints of nausea and constipation. He was found to have a RML and RLL Pneumonia. He had bedside Thoracentesis on 04/15/18 and roughly 1 liter of purulent material was collected suspicious for empyema. Cardiothoracic Surgery was consulted for placement of Chest Tube. CT Chest performance is pending. Please see Assessment and Plans below for further details. Upon ROS: Dyspnea Abdominal pain with cough that is dry Chest tightness General: AAOX3, In respiratory distress with audible wheezing HEENT: NCA, EOMI, PERRLA, NO lymphadenopathy, NO pharyngeal exudate/erythema, NO thyromegaly Cardio: NS1 and NS2, NO M/R/G Resp: Inspiratory Crackles Right Mid to Lower Lung [facility] GI: BSx4, Soft, Central Obesity, NO guarding/rebound tenderness Ext: NO edema, Capillary Refill is 2 seconds, Pulses are strong and equal Neuro: CN II through XII are grossly intact Assessments: 1). Sepsis Secondary to Right Middle and Lower Lobe Pneumonia and Suspected Empyema As seen on CT Chest Suspect possible aspiration due to the history of alcohol use (see below) Azithromycin and Rocephin were discontinued on 04/15/18 Clindamycin 600 mg IV Q8H (04/15/18) Vancomycin 1.25 gm IV Q12H (04/15/18) Zosyn 3.375 gm IV Q6H (04/15/18) Tamiflu 75 mg PO 2x/day (04/14/18) Blood Culture is negative to date F/U CT Chest 04/15/[address] Spring Cardiothoracic Surgery Dr. Meza for possible Chest Tube placement 2). Respiratory Distress At time of my exam today, patient was on high flow oxygen and again patient appeared to have increased work of breathing Spoke with ICU resident Dr. Tate and instructed him to reorder BiPAP 12/6 FiO2 100% 3). Bilateral Perinephric Stranding As seen on CT Abdomen/Pelvis On exam 04/14/18 and 04/15/18 there was NO CVA tenderness UA shows NEGATIVE Nitrate, Ketones, and LE Doubt that this is Pyelonephritis as Urine Culture is negative 4). Suspected Alcohol Abuse Patient revealed 04/14/18 that he drank shots and multiple beers twice a week but told overnight team at time of admission that he did this 5x per week. Last drink was this past Friday04/10/18: He continues with NO signs of withdrawl on exam at this time Could the findings on CT Chest RML/RLL Pneumonia be due to Aspiration even though only unilateral: considering the empyema and right sided nature of the infiltrate, this is likely Bannana Bag once a day @ 100 ml/hour Ativan 1 mg IV Q6H PRN Withdrawl 5). Hyponatremia Likely SIADH TSH and T4 are normal Morning Cortisol normal Triglycerides normal Urine Osm was high Urine Na was 35 6). Tachycardia Could this be secondary to the ongoing fever secondary to the pneumonia? EKG shows Sinus Tachycarida Tylenol 650 mg PO Q6H x 4 doses starting tonight despite the elevated LFTs 7). Elevated LFTs and Hepatic Parenchymal Disease (as seen CT Abdomen) Likely secondary to suspected alcohol abuse Hepatitis Panel negative HIV negative UDS negative 8). Hypokalemia ICU Team repleted 9). Hypomagnesemia Repleted with IV Magnesium Sulfate 04/14/18 10). Constipation As seen on Obstruction Series Senokot Colace 100 mg PO 3x/day Had bowel movement 04/15/18 11). Prophylaxis DVT risk score of 2 based upon Age and diagnosis of Sepsis: Heparin 5,000 Units SC Q8H and Bilateral SCDs NO GI PPX with PPI indicated Lactobacillus PO 2x/day Franki Nguyen D.O. Objective - Vital Signs/Intake and Output Vital Signs (last 24 hours): Temp Pulse Resp BP Pulse Ox 99.5 F 117 H 37 H 128/73 97 04/15/18 16:00 04/15/18 17:00 04/15/18 17:00 04/15/18 15:24 04/15/18 17:00 Intake and Output: 04/15/18 04/15/18 06:59 18:59 Intake Total 1383 2028 Output Total 1250 1100 Balance 133 928 - Medications Medications: Current Medications Acetaminophen (Tylenol 325mg Tab) 650 mg PO Q6H PRN PRN Reason: Fever >100.4 F Last Admin: 04/14/18 20:10 Dose: 650 mg Acetylcysteine (Acetylcysteine 20%) 4 ml INH RQ6 [facility] Last Admin: 04/15/18 13:39 Dose: 4 ml Albuterol/Ipratropium (Duoneb 3 Mg/0.5 Mg (3 Ml) Ud) 3 ml INH RQ6 [facility] Last Admin: 04/15/18 13:39 Dose: 3 ml Docusate Sodium (Colace) 100 mg PO TID [facility] Last Admin: 04/15/18 17:00 Dose: 100 mg Enoxaparin Sodium (Lovenox) 40 mg SC DAILY [facility] Last Admin: 04/15/18 09:01 Dose: 40 mg Folic Acid (Folic Acid) 1 mg PO DAILY [facility] Last Admin: 04/15/18 09:01 Dose: 1 mg Piperacillin Sod/Tazobactam Sod (Zosyn 3.375 Gm Iv Premix) 3.375 gm in 50 mls @ 100 mls/hr IVPB Q6H [facility]; Protocol Last Admin: 04/15/18 15:37 Dose: 100 mls/hr Vancomycin HCl 1,250 mg/ (Sodium Chloride) 250 mls @ 125 mls/hr IVPB Q12H [facility]; Protocol Clindamycin Phosphate 600 mg/ (Sodium Chloride) 104 mls @ 100 mls/hr IV Q8H [facility]; Protocol Last Admin: 04/15/18 16:53 Dose: 100 mls/hr Lactobacillus Acidophilus (Bacid Acidophilus) 1 cap PO BID [facility] Last Admin: 04/15/18 17:00 Dose: 1 cap Lorazepam (Ativan) 1 mg IVP Q6H PRN PRN Reason: Anxiety Multivitamins (Hexavitamin) 1 tab PO DAILY [facility] Last Admin: 04/15/18 09:01 Dose: 1 tab Oseltamivir Phosphate (Tamiflu Cap) 75 mg PO BID [facility]; Protocol Stop: 04/19/18 18:57 Last Admin: 04/15/18 17:00 Dose: 75 mg Pantoprazole Sodium (Protonix Inj) 40 mg IVP DAILY [facility] Last Admin: 04/15/18 09:02 Dose: 40 mg Sennosides (Senokot Tab) 8.6 mg PO BID [facility] Last Admin: 04/15/18 17:00 Dose: Not Given Thiamine HCl (Vitamin B1 Tab) 100 mg PO DAILY [facility] Last Admin: 04/15/18 09:02 Dose: 100 mg - Labs Labs: 04/15/18 05:49 04/15/18 05:49 PT 13.0 SECONDS (9.7-12.2) H 04/15/18 16:25 INR 1.2 04/15/18 16:25 APTT 35 SECONDS (21-34) H 04/15/18 16:25
--- NOTE | 2018-04-15 18:38 | CT ---
Date of service: 04/15/2018 CT chest with IV contrast Indication: emphyema Technique: Contiguous axial images were obtained through the chest with intravenous contrast enhancement. Sagittal and coronal reconstructions were generated and reviewed. This CT exam was performed using 1 or more of the following dose reduction techniques: Automated exposure control, adjustment of the MAA and/or kV according to patient size, and/or use of iterative reconstruction technique. IV contrast: 100 cc Omnipaque 350 IV Radiation dose (DLP): 757.16 MGy-cm. Comparison: Chest x-ray performed 04/15/18, CT of the chest abdomen and pelvis without 04/13/28 Findings: Visualized portions of the inferior thyroid gland appear unremarkable. The mediastinal and hilar vascular structures appear within normal limits. Cardiomegaly. Trace pericardial effusion. Coronary artery calcifications. Extensive consolidation throughout the right hemithorax with relative sparing of the right lung apex. Small loculated right-sided pleural effusion measures approximately 2.1 cm in maximum depth. No pneumothorax. Mild left basilar atelectasis. The left hemithorax appears otherwise grossly clear. Limited visualization of the upper abdomen reveals hepatomegaly. Diffuse hepatic steatosis with 2 regions of low attenuation suspected to represent more focal fatty infiltration. No acute osseous abnormality is detected. Impression: Cardiomegaly. Trace pericardial effusion. Coronary artery calcifications. Extensive consolidation throughout the right hemithorax with relative sparing of the right lung apex. Small loculated right-sided pleural effusion measures approximately 2.1 cm in maximum depth; super infection is not excluded. Recommend continued close interval follow-up to resolution. Mild left basilar atelectasis. The left hemithorax appears otherwise grossly clear. Limited visualization of the upper abdomen reveals hepatomegaly. Diffuse hepatic steatosis with 2 more focal hypodense regions favored to represent focal fatty infiltration.
[2018-04-15] MEDS ORDERED: Dexmedetomidine Hydrochloride 200 MCG in Sodium Chloride 0.9% 48 ML IV PRN (20:51)
[2018-04-15] MEDS: Propofol 10 mg/ml 1,000 MG/100 ML VIAL IV PRN (21:30)
--- NOTE | 2018-04-15 21:30 | PCM.PROC ---
Procedures Attestation:: I certify that I have explained the specified Operation(s) or Procedure(s), risks, benefits and reasonable alternatives to the Patient and/or other person responsible. The opportunity was given to ask questions and all questions answered - Intubation Time Out Performed: Yes (emergent ) Sedative: Etomidate Paralytic: Rocuronimum Laryngoscope: Paramjit ET Tube Size: 7.5 ET Tube Placement Confirmation: Visualized Passing Through Cords, Breath Sounds Equal Bilaterally, No Breath Sounds Over Epigastrum, Confirmation w/Capnometry Patient Tolerated Procedure: Well, No Complications Additional comments: Pt with DT's was tachycardic to 150's /tachypneic on BIPAP /agitated without adequate responise to Ativan /Precedex /Haldol required emergent intubation for airway control and adequate sedation. family informed prior to intubation. CXR ordered.
[2018-04-15] MEDS ORDERED: Propofol 10 mg/ml 1,000 MG/100 ML VIAL IV PRN (21:33)
[2018-04-15 21:51] LABS: BASO # 0.2 K/uL (0.0-0.2); BASO % 1.7 % (0.0-2.0); EOS % 0.2 % (0.0-4.0); HEMOGLOBIN 12.2 g/dL (12.0-18.0); LYMPH # 0.4 K/uL (1.0-4.3); LYMPH % 3.3 % (20.0-40.0); MEAN CELL VOLUME 88.2 fL (80.0-94.0); MEAN CORPUSCULAR HEMOGLOBIN 28.4 pg (27.0-31.0); MEAN CORPUSCULAR HGB CONC 32.2 g/dL (33.0-37.0); MEAN PLATELET VOLUME 9.3 fL (7.2-11.7); MONO # 0.5 K/uL (0.0-0.8); MONO % 3.8 % (0.0-10.0); NEUT # 11.5 K/uL (1.8-7.0); PLATELET COUNT 168 K/uL (130-400); RBC 4.29 Mil/uL (4.40-5.90); RED CELL DISTRIBUTION WIDTH 14.3 % (11.5-14.5); WHITE BLOOD COUNT 12.6 K/uL (4.8-10.8)
[2018-04-15] MEDS ORDERED: Moxifloxacin IV 400mg/250ml NS 400 MG/250 ML BAG IVPB SCH (22:00)
[2018-04-15 22:19] LABS: BANDS 31 % (0-2); EOSINOPHIL 1 % (0-4); LYMPHOCYTE 5 % (20-40); MONOCYTE 5 % (0-10); MYELOCYTE 3 % (0-0); NEUTROPHIL 54 % (50-75); PLATELET ESTIMATE NORMAL (NORMAL); REACTIVE LYMPHOCYTES 1 % (0-0); TOTAL CELLS COUNTED 100
[2018-04-15 22:20] LABS: ANISOCYTOSIS SLIGHT; POIKILOCYTOSIS SLIGHT
[2018-04-15 22:21] LABS: HYPOCHROMIC SLIGHT
[2018-04-15] MEDS ORDERED: Lactated Ringer's 1,000 ML IV ONE (22:21)
[2018-04-15 22:25] LABS: ABG ALLEN TEST UNABLE; ARTERIAL BLOOD GAS HCO3 28.1 mmol/L (21-28); ARTERIAL BLOOD GAS O2 SAT 99.3 % (95-98); ARTERIAL BLOOD GAS PCO2 48 mm/Hg (35-45); ARTERIAL BLOOD GAS PO2 118 mm/Hg (80-100); ARTERIAL BLOOD GAS TCO2 31.2 mmol/L (22-28)
[2018-04-15 22:37] LABS: ALB/GLOB RATIO 0.9 (1.0-2.1); ALBUMIN 3.1 g/dL (3.5-5.0); ALT/SGPT 112 U/L (21-72); AST/SGOT 187 U/L (17-59); BLOOD UREA NITROGEN 11 mg/dL (9-20); CALCIUM 8.1 mg/dl (8.6-10.4); GFR NON-AFRICAN AMERICAN > 60
[2018-04-15] MEDS: Midazolam 50 mg/10 ml 100 MG in Sodium Chloride 0.9% 80 ML IV SCH (22:45)
--- NOTE | 2018-04-16 01:33 | CON ---
DATE: 04/15/2018 INFECTIOUS DISEASE CONSULT REQUESTED BY: Fernando Harrison MD HISTORY OF PRESENT ILLNESS: This patient is a 43-year-old male. He said he has had no past medical history. He does not take anything before, but he was having acute right lower quadrant abdominal pain on Friday and having fevers and chills which was going on for a week, and he also had nausea. No vomiting, no diarrhea. He has been constipated. He denied any shortness of breath, but he was having shortness of breath in the emergency room, and he denied any headache. No ears, nose, or throat problems. No chest pain. No cough, but had come with the above symptoms and was found to have extensive pneumonia of the right lung. Actually, they found that he has empyema. He had pus drained from the right lung just today, and I was called in consult last night. PAST MEDICAL HISTORY: He denies. ALLERGIES: HE IS NOT ALLERGIC TO ANY MEDICINE. 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 He is a social drinker. Denies any tobacco or drug use. The patient took antibiotic at home, but does not recall the name, and he has no other complaints. All review of systems was negative. He has no psych issues and he came in, he had lot of bandemia; hence, I was called in and he was spiking temps while I am still dictating this note. PHYSICAL EXAMINATION: VITAL SIGNS: His temp is 101.5, heart rate of 121, and his saturation remains 98%. Respirations are 23, and his blood pressure was 139/92. HEENT: Head is atraumatic, normocephalic. He was on Ventimask. NECK: Supple. JVP is flat. LUNGS: There are decreased breath sounds in right lung. Left lung has normal breath sounds. HEART: S1, S2 are regular. He is not using any accessory muscles, but remains tachycardic. ABDOMEN: Soft. There was some right lower quadrant tenderness. No guarding, no rigidity present. EXTREMITIES: Have no edema, clubbing, or cyanosis. LABORATORY DATA: His labs are noted. He came in with a white count of 15, now it is 12.6; hemoglobin 12.2; hematocrit 37.8; platelet count is 168; and his bands were 58 when I saw this morning, now it is 31; and his ABG is showing 7.40, CO2 is 31.2, saturations 99.3, so it is markedly improved. This morning, they did his ABG, pH was 6.87 of the pleural fluid, so it is probably empyema, and they said there was gross pus, and body fluid culture is pending. MRSA was detected. Blood cultures are negative. Urine culture was negative. His CAT scan was done. CT chest this morning repeated around 3:30 today, and it shows cardiomegaly, trace pericardial effusion, extensive consolidation throughout the right hemithorax with relatively sparing right lung base, small loculated right-sided pleural effusion measures 2.1 in the maximum, superinfection is not included, recommend continuous close followup to resolution, mild left basilar atelectasis, left hemithorax appears grossly clear. So, left side is clear. Pneumonia is on the right side, and the pus was removed from right side. ASSESSMENT: So, this patient is admitted with empyema and has consolidation extensive on the right lung and has severe bandemia and is acutely ill with no previous medical history. His human immunodeficiency virus was negative, I am told. PLAN: So, I have started him on clindamycin. He is on vancomycin and Zosyn at this time. We will continue those, and we are also continuing Tamiflu for now, and we will follow. We will follow with the senior engineering manager. Renea Spring MD
[2018-04-16] MEDS: Lactated Ringer's 1,000 ML IV SCH ×2 (02:30→10:21)
[2018-04-16] MEDS: Propofol 10 mg/ml 1,000 MG/100 ML VIAL IV PRN ×3 (03:26→21:00)
[2018-04-16] MEDS: Albuterol-Ipratrop 3 mg / 0.5 (3 ml) UD INH SCH ×4 (03:53→20:32)
[2018-04-16] MEDS: Acetylcysteine 20% Inhal Soln (4ml) INH SCH ×3 (03:53→13:24)
[2018-04-16] MEDS: Piperacill/Tazo 3.375gm in Dex 3.375 GM/50 ML BAG IVPB SCH ×3 (04:40→16:50)
[2018-04-16 05:53] LABS: SQUAMOUS EPITHIAL < 1 /hpf (0-5); URINE BILIRUBIN 1+ (NEGATIVE); URINE BLOOD NEGATIVE (NEGATIVE); URINE CLARITY Clear (Clear); URINE COLOR Amber (YELLOW); URINE GLUCOSE (UA) NORMAL (Normal); URINE LEUKOCYTE ESTERASE NEG Leu/uL (Negative); URINE PROTEIN 2+ mg/dL (NEGATIVE)
[2018-04-16 06:01] LABS: ABG ALLEN TEST POS; ARTERIAL BLOOD GAS HEMOGLOBIN 10.5 g/dL (11.7-17.4); ARTERIAL BLOOD GAS PCO2 35 mm/Hg (35-45); ARTERIAL BLOOD GAS PH 7.48 (7.35-7.45); ARTERIAL BLOOD GAS PO2 66 mm/Hg (80-100); ARTERIAL BLOOD GAS TCO2 27.2 mmol/L (22-28)
[2018-04-16 06:05] LABS: BASO % 0.2 % (0.0-2.0); EOS # 0.1 K/uL (0.0-0.7); EOS % 0.7 % (0.0-4.0); HEMOGLOBIN 11.2 g/dL (12.0-18.0); LYMPH # 0.5 K/uL (1.0-4.3); LYMPH % 4.9 % (20.0-40.0); MEAN CELL VOLUME 88.5 fL (80.0-94.0); MEAN CORPUSCULAR HGB CONC 32.8 g/dL (33.0-37.0); MEAN PLATELET VOLUME 9.7 fL (7.2-11.7); MONO # 0.5 K/uL (0.0-0.8); NEUT # 9.8 K/uL (1.8-7.0); NEUT % 89.2 % (50.0-75.0); NRBC % 0.1 % (0.0-2.0); PLATELET COUNT 150 K/uL (130-400); RBC 3.85 Mil/uL (4.40-5.90); RED CELL DISTRIBUTION WIDTH 14.4 % (11.5-14.5)
[2018-04-16 06:25] LABS: ALB/GLOB RATIO 0.9 (1.0-2.1); ALBUMIN 2.6 g/dL (3.5-5.0); ALT/SGPT 109 U/L (21-72); AST/SGOT 172 U/L (17-59); BLOOD UREA NITROGEN 13 mg/dL (9-20); CALCIUM 7.8 mg/dl (8.6-10.4); GFR NON-AFRICAN AMERICAN > 60
--- NOTE | 2018-04-16 07:44 | RAD ---
Date of service: 04/16/2018 HISTORY: PNA, s/p thoracentesis COMPARISON: Portable chest 04/15/2018, 10:39 p.m.. FINDINGS: LUNGS: Endotracheal and nasogastric tubes are not significantly changed in position. No signal interval change in [id number] consolidation at the mid to inferior right lung zone with likely elevated right hemidiaphragm. No left-sided infiltrate once again. PLEURA: Small right pleural effusion is present. None is seen at the left. No pneumothorax bilaterally. CARDIOVASCULAR: No aortic atherosclerotic calcification present. Stable cardiac size. No definite pulmonary vascular congestion. OSSEOUS STRUCTURES: No significant abnormalities. VISUALIZED UPPER ABDOMEN: Normal. OTHER FINDINGS: None. IMPRESSION: Normal change in mid to inferior right-sided consolidation. Small right pleural effusion evident. Elevated right hemidiaphragm reiterated.
--- NOTE | 2018-04-16 08:23 | CP.PCM.PN ---
Subjective - Date & Time of Evaluation Date of Evaluation: 04/16/18 Time of Evaluation: 07:00 - Subjective Subjective: Cardiothoracic Surgery Pt seen and examined. Was intubated and sedated overnight due to DTs. Last EtOH was 3 days ago. Still awaiting Pleural fluid analysis. Objective - Vital Signs/Intake and Output Vital Signs (last 24 hours): Temp Pulse Resp BP Pulse Ox 101.9 F H 102 H 26 H 97/53 L 96 04/16/18 05:10 04/16/18 07:00 04/16/18 07:00 04/16/18 06:55 04/16/18 07:00 Intake and Output: 04/16/18 04/16/18 06:59 18:59 Intake Total 2546 184 Output Total 1000 Balance 1546 184 - Medications Medications: Current Medications Acetaminophen (Tylenol 325mg Tab) 650 mg PO Q6H PRN PRN Reason: Fever >100.4 F Last Admin: 04/16/18 05:10 Dose: 650 mg Acetylcysteine (Acetylcysteine 20%) 4 ml INH RQ6 [facility] Last Admin: 04/16/18 08:07 Dose: 4 ml Albuterol/Ipratropium (Duoneb 3 Mg/0.5 Mg (3 Ml) Ud) 3 ml INH RQ6 [facility] Last Admin: 04/16/18 08:07 Dose: 3 ml Docusate Sodium (Colace) 100 mg PO TID [facility] Last Admin: 04/15/18 17:00 Dose: 100 mg Enoxaparin Sodium (Lovenox) 40 mg SC DAILY [facility] Last Admin: 04/15/18 09:01 Dose: 40 mg Folic Acid (Folic Acid) 1 mg PO DAILY [facility] Last Admin: 04/15/18 09:01 Dose: 1 mg Piperacillin Sod/Tazobactam Sod (Zosyn 3.375 Gm Iv Premix) 3.375 gm in 50 mls @ 100 mls/hr IVPB Q6H [facility]; Protocol Last Admin: 04/16/18 04:40 Dose: 100 mls/hr Vancomycin HCl 1,250 mg/ (Sodium Chloride) 250 mls @ 125 mls/hr IVPB Q12H [facility]; Protocol Last Admin: 04/16/18 02:30 Dose: 125 mls/hr Clindamycin Phosphate 600 mg/ (Sodium Chloride) 104 mls @ 100 mls/hr IV Q8H [facility]; Protocol Last Admin: 04/16/18 00:00 Dose: 100 mls/hr Propofol (Diprivan) 1,000 mg in 100 mls @ 2.79 mls/hr IV .Q24H PRN; Protocol PRN Reason: Agitation Last Admin: 04/16/18 03:26 Dose: 25 mcg/kg/min, 13.95 mls/hr Midazolam HCl 100 mg/ Sodium (Chloride) 100 mls @ 1.86 mls/hr IV .Q24H [facility]; Protocol Last Titration: 04/16/18 07:00 Dose: 0.06 mg/kg/hr, 6 mls/hr Lactated Ringer's (Lactated Ringer's) 1,000 mls @ 125 mls/hr IV .Q8H [facility] Last Admin: 04/16/18 02:30 Dose: 125 mls/hr Lactobacillus Acidophilus (Bacid Acidophilus) 1 cap PO BID [facility] Last Admin: 04/15/18 17:00 Dose: 1 cap Lorazepam (Ativan) 1 mg IVP Q6H PRN PRN Reason: Anxiety Last Admin: 04/15/18 20:15 Dose: 1 mg Multivitamins (Hexavitamin) 1 tab PO DAILY [facility] Last Admin: 04/15/18 09:01 Dose: 1 tab Oseltamivir Phosphate (Tamiflu Cap) 75 mg PO BID [facility]; Protocol Stop: 04/19/18 18:57 Last Admin: 04/15/18 17:00 Dose: 75 mg Pantoprazole Sodium (Protonix Inj) 40 mg IVP DAILY [facility] Last Admin: 04/15/18 09:02 Dose: 40 mg Sennosides (Senokot Tab) 8.6 mg PO BID [facility] Last Admin: 04/15/18 17:00 Dose: Not Given Thiamine HCl (Vitamin B1 Tab) 100 mg PO DAILY [facility] Last Admin: 04/15/18 09:02 Dose: 100 mg - Labs Labs: 04/16/18 05:42 04/16/18 05:42 PT 13.0 SECONDS (9.7-12.2) H 04/15/18 16:25 INR 1.2 04/15/18 16:25 APTT 35 SECONDS (21-34) H 04/15/18 16:25 - Constitutional Appears: Non-toxic, Other (intubated, sedated) - Head Exam Head Exam: ATRAUMATIC, NORMOCEPHALIC - ENT Exam Additional comments: ET tube in place - Respiratory Exam Respiratory Exam: absent: Accessory Muscle Use, Chest Wall Tenderness, NORMAL BREATHING PATTERN (tachypnea) - Cardiovascular Exam Cardiovascular Exam: Tachycardia, +S1, +S2 - GI/Abdominal Exam GI & Abdominal Exam: Soft. absent: Distended, Tenderness - Neurological Exam Neurological Exam: Altered (sedated) - Skin Skin Exam: Dry, Warm Assessment and Plan - Assessment and Plan (Free Text) Assessment: 43M with empyema Plan: - F/U fluid studies from thoracentesis - Possible surgical intervention pending results D/W Dr. Susana Díaz PGY4
[2018-04-16 08:56] LABS: BANDS 32 % (0-2); EOSINOPHIL 2 % (0-4); LYMPHOCYTE 5 % (20-40); METAMYELOCYTE 2 % (0-0); MONOCYTE 6 % (0-10); MYELOCYTE 1 % (0-0); NEUTROPHIL 51 % (50-75); PLATELET ESTIMATE NORMAL (NORMAL); REACTIVE LYMPHOCYTES 1 % (0-0); TOTAL CELLS COUNTED 100
[2018-04-16 08:57] LABS: LARGE PLATELETS PRESENT; TARGET CELLS SLIGHT; TOXIC GRANULATION PRESENT
--- NOTE | 2018-04-16 09:30 | RAD ---
Date of service: 04/15/2018 HISTORY: intubated COMPARISON: 04/15/2018 FINDINGS: LUNGS: There is interval decreased opacity in the right mid and right lung base compatible with interval thoracentesis and improved aeration. Residual discoid atelectasis and/or trace fluid thickening of the right minor fissure noted. The hazy opacity over the inferolateral right hemithorax is compatible with small residual fluid layering and/or incompletely reinflated lung. No dense consolidation to suggest pneumonia noted. The left lung is clear. Interval insertion of an endotracheal tube-approximately 2 cm cephalad to the rashad. PLEURA: Interval decrease in size of the right pleural effusion No gross pneumothorax apparent. CARDIOVASCULAR: No aortic atherosclerotic calcification present. Mild cardiomegaly-similar prior pulmonary venous congestion currently appears less. OSSEOUS STRUCTURES: No significant abnormalities. VISUALIZED UPPER ABDOMEN: Normal. OTHER FINDINGS: None. IMPRESSION: Interval endotracheal tube insertion tip approximately 2 cm from the rashad. Interval right thoracentesis-no gross pneumothorax appreciated. Will decrease right pleural effusion. Interval inferred improved right lung aeration.
[2018-04-16] MEDS: Clindamycin 600 MG in Sodium Chloride 0.9% 100 ML IV SCH ×3 (09:43→15:36)
[2018-04-16] MEDS: Enoxaparin 40 mg Syringe SC SCH (09:44)
[2018-04-16] MEDS: Lactobacillus Acidophilus 500 MU Cap PO SCH ×2 (09:45→17:52)
[2018-04-16] MEDS: Multiple Vitamins Tab PO SCH (09:45)
[2018-04-16] MEDS ORDERED: Vancomycin 1 gm/NS 200 ml 1 GM/200 ML BAG IVPB SCH (10:00)
--- NOTE | 2018-04-16 10:20 | US ---
Limited right joao thorax ultrasound HISTORY: Right pleural effusion. COMPARISON: None available. TECHNIQUE: Limited real-time sonography was performed through the right hemithorax. Findings: Right pleural effusion was marked for thoracentesis to be performed by Dr. Rangel. Impression: Right pleural effusion.
[2018-04-16] MEDS ORDERED: Potassium Chloride 20 mEq/15 ml LIQ UD PO ONE (10:38)
[2018-04-16] MEDS ORDERED: Potassium Phosphate 30 MMOLE in Sodium Chloride 0.9% 250 ML IV ONE (11:15)
--- NOTE | 2018-04-16 11:25 | CARD ---
APPROVED REPORT Date of service: 04/15/2018 EKG Measurement Heart [id number] <Conclusion> Sinus tachycardia Otherwise normal ECG
--- NOTE | 2018-04-16 11:25 | CARD ---
APPROVED REPORT Date of service: 04/14/2018 EKG Measurement Heart [id number] <Conclusion> Sinus tachycardia Otherwise normal ECG
--- NOTE | 2018-04-16 12:33 | CP.CCUPN ---
<Misael Tate - Last Filed: 04/16/18 21:42> CCU Subjective - Physician Review Subjective (Free Text): PGY-[address] Salmon service Patient seen and examined at bedside. 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 at bedside. continues to under sedation this morning. ROS unattainable due to patient's status. Critical Care Time Spent (in minutes): 35 CCU Objective - Vital Signs / Intake & Output Vital Signs (Last 4 hours): Vital Signs Pulse Resp BP Pulse Ox 04/16/18 10:00 100 H 42 H 97 04/16/18 09:37 100 H 36 H 97/61 L 97 04/16/18 09:00 102 H 39 H 96 04/16/18 08:38 102 H 20 92/54 L 98 Intake and Output (Last 8hrs): Intake & Output 04/15/18 04/16/18 04/16/18 22:59 06:59 14:59 Intake Total 1834 1352 449 Output Total 1200 1000 350 Balance 634 352 99 Intake: IV 100 40 Intake, IV Amount 1594 1252 409 Left Antecubital 5 40 17 Left Forearm 175 900 350 Left Hand 14 112 42 Right Distal Port 400 Antecubital Right Forearm 1000 200 Oral 240 Output: Urine 1000 350 Urethral (Roman) 1000 350 Other 1200 Other: # Bowel Movements 0 - Physical Exam Head: Positive for: Atraumatic, Normocephalic Pupils: Positive for: PERRL Extroacular Muscles: Positive for: EOMI Conjunctiva: Positive for: Normal Neck: Positive for: Normal Range of Motion Respiratory/Chest: Positive for: Decreased Breath Sounds (right middle and lower lobes ), Rales. Negative for: Respiratory Distress, Accessory Muscle Use Cardiovascular: Positive for: Regular Rate and Rhythm, Normal S1, S2 Abdomen: Positive for: Distention, Normal Bowel Sounds. Negative for: Tenderness Upper Extremity: Positive for: Normal Inspection. Negative for: Cyanosis, Edema Lower Extremity: Positive for: Normal Inspection. Negative for: Edema Neurological: Positive for: Other (unable to assess due to pts condition ) Skin: Positive for: Warm, Dry, Normal Color Psychiatric: Positive for: Other (sedated, not awake or oriented, not respond to verbal stimuli ) - Medications Active Medications: Active Medications Generic Name Dose Route Start Last Admin Trade Name Freq PRN Reason Stop Dose Admin Acetylcysteine 4 ml 04/15/18 08:00 04/16/18 08:07 Acetylcysteine 20% INH 4 ml RQ6 JESUS Administration Albuterol/Ipratropium 3 ml 04/15/18 08:00 04/16/18 08:07 Duoneb 3 Mg/0.5 Mg (3 Ml) Ud INH 3 ml RQ6 JESUS Administration Docusate Sodium 100 mg 04/14/18 18:30 04/16/18 09:45 Colace PO 100 mg TID JESUS Administration Enoxaparin Sodium 40 mg 04/14/18 10:00 04/16/18 09:44 Lovenox SC 40 mg DAILY JESUS Administration Folic Acid 1 mg 04/14/18 10:00 04/16/18 09:45 Folic Acid PO 1 mg DAILY JESUS Administration Piperacillin Sod/Tazobactam Sod 3.375 gm in 50 mls @ 100 mls/hr 04/14/18 22:00 04/16/18 11:21 Zosyn 3.375 Gm Iv Premix IVPB 100 mls/hr Q6H JESUS Administration Protocol Vancomycin HCl 1,250 mg/ 250 mls @ 125 mls/hr 04/16/18 01:30 04/16/18 02:30 Sodium Chloride IVPB 125 mls/hr Q12H JESUS Administration Protocol Clindamycin Phosphate 600 mg/ 104 mls @ 100 mls/hr 04/15/18 16:00 04/16/18 09:43 Sodium Chloride IV 100 mls/hr Q8H JESUS Administration Protocol Propofol 1,000 mg in 100 mls @ 2.79 mls/hr 04/15/18 21:20 04/16/18 03:26 Diprivan IV 25 mcg/kg/min .Q24H PRN 13.95 mls/hr Agitation Administration Protocol 5 MCG/KG/MIN Midazolam HCl 100 mg/ Sodium 100 mls @ 1.86 mls/hr 04/15/18 22:30 04/16/18 07:00 Chloride IV 0.06 mg/kg/hr .Q24H JESUS 6 mls/hr Titration Protocol 0.02 MG/KG/HR Potassium Phosphate 30 mmole/ 260 mls @ 63 mls/hr 04/16/18 11:15 Sodium Chloride IV 04/16/18 15:22 ONCE ONE Potassium Chloride/Dextrose/Sod Cl 1,000 mls @ 125 mls/hr 04/16/18 10:45 Potassium Chl 20 Meq In D5-1/2ns IV .Q8H JESUS Lactobacillus Acidophilus 1 cap 04/14/18 18:45 04/16/18 09:45 Bacid Acidophilus PO 1 cap BID JESUS Administration Lorazepam 1 mg 04/16/18 10:41 04/16/18 11:07 Ativan IVP 1 mg Q4H PRN Administration Anxiety Multivitamins 1 tab 04/14/18 10:00 04/16/18 09:45 Hexavitamin PO 1 tab DAILY JESUS Administration Oseltamivir Phosphate 75 mg 04/14/18 19:00 04/16/18 09:45 Tamiflu Cap PO 04/19/18 18:57 75 mg BID JESUS Administration Protocol Pantoprazole Sodium 40 mg 04/14/18 10:00 04/16/18 09:45 Protonix Inj IVP 40 mg DAILY JESUS Administration Sennosides 8.6 mg 04/14/18 00:15 04/16/18 09:45 Senokot Tab PO 8.6 mg BID JESUS Administration Thiamine HCl 100 mg 04/14/18 10:00 04/16/18 09:45 Vitamin B1 Tab PO 100 mg DAILY JESUS Administration - Patient Studies Lab Studies: Microbiology Studies 04/15/18 13:49 Gram Stain - Final Thoracic Fluid Body Fluid Culture - Preliminary NO GROWTH AFTER 24 HOURS 04/13/18 21:43 Blood Culture - Preliminary Blood NO GROWTH AFTER 48 HOURS 04/13/18 21:00 Blood Culture - Preliminary Blood NO GROWTH AFTER 48 HOURS 04/13/18 20:48 Urine Culture - Final Urine Random No Growth (<1,000 CFU/ML) 04/14/18 06:06 MRSA Culture (Admit) - Final Nose MRSA DETECTED Lab Studies 04/16/18 04/16/18 04/16/18 Range/Units 05:42 05:42 05:42 WBC 11.0 H (4.8-10.8) K/uL RBC 3.85 L (4.40-5.90) Mil/uL Hgb 11.2 L (12.0-18.0) g/dL Hct 34.1 L (35.0-51.0) % MCV 88.5 (80.0-94.0) fL MCH 29.0 (27.0-31.0) pg MCHC 32.8 L (33.0-37.0) g/dL RDW 14.4 (11.5-14.5) % Plt Count 150 (130-400) K/uL MPV 9.7 (7.2-11.7) fL Neut % (Auto) 89.2 H (50.0-75.0) % Lymph % (Auto) 4.9 L (20.0-40.0) % [place] % (Auto) 5.0 (0.0-10.0) % Eos % (Auto) 0.7 (0.0-4.0) % Baso % (Auto) 0.2 (0.0-2.0) % Neut # (Auto) 9.8 H (1.8-7.0) K/uL Lymph # (Auto) 0.5 L (1.0-4.3) K/uL [place] # (Auto) 0.5 (0.0-0.8) K/uL Eos # (Auto) 0.1 (0.0-0.7) K/uL Baso # (Auto) 0.0 (0.0-0.2) K/uL Neutrophils % (Manual) 51 (50-75) % Band Neutrophils % 32 H* (0-2) % Lymphocytes % (Manual) 5 L (20-40) % Reactive Lymphs % 1 H (0-0) % Monocytes % (Manual) 6 (0-10) % Eosinophils % (Manual) 2 (0-4) % Metamyelocytes % 2 H (0-0) % Myelocytes % 1 H (0-0) % Toxic Granulation Present Dohle Bodies Present Platelet Estimate Normal (NORMAL) Large Platelets Present Hypochromasia (manual) Poikilocytosis (manual Anisocytosis (manual) Target Cells Slight PT (9.7-12.2) SECONDS INR APTT (21-34) SECONDS Puncture Site pCO2 (35-45) mm/Hg pO2 (80-100) mm/Hg HCO3 (21-28) mmol/L ABG pH (7.35-7.45) ABG Total CO2 (22-28) mmol/L ABG O2 Saturation (95-98) % ABG Base Excess (-2.0-3.0) mmol/L ABG Hemoglobin (11.7-17.4) g/dL ABG Carboxyhemoglobin (0.5-1.5) % POC ABG HHb (Measured) (0.0-5.0) % ABG Methemoglobin (0.0-3.0) % [place] Test ABG Potassium (3.6-5.2) mmol/L A-a O2 Difference mm/Hg Respiratory Index Hgb O2 Saturation (95.0-98.0) % Glucose (75-110) mg/dl Lactate (0.7-2.1) mmol/L Vent Mode Mechanical Rate FiO2 % Tidal Volume PEEP Crit Value Called To Crit Value Called By Crit Value Read Back Blood Gas Notified Time Sodium 136 (132-148) mmol/L Potassium 3.0 L (3.6-5.2) mmol/L Chloride 104 (98-107) mmol/L Carbon Dioxide 27 (22-30) mmol/L Anion Gap 7 L (10-20) BUN 13 (9-20) mg/dL Creatinine 0.9 (0.8-1.5) mg/dL Est GFR ( Amer) > 60 Est GFR (Non-Af Amer) > 60 POC Glucose (mg/dL) (65-110) mg/dL Random Glucose 92 (75-110) mg/dL Calcium 7.8 L (8.6-10.4) mg/dl Phosphorus 2.0 L (2.5-4.5) mg/dL Magnesium 2.3 (1.6-2.3) mg/dL Total Bilirubin 1.2 (0.2-1.3) mg/dL AST 172 H (17-59) U/L ALT 109 H (21-72) U/L Alkaline Phosphatase 157 H (38-126) U/L Total Protein 5.4 L (6.3-8.3) g/dL Albumin 2.6 L (3.5-5.0) g/dL Globulin 2.8 (2.2-3.9) gm/dL Albumin/Globulin Ratio 0.9 L (1.0-2.1) Arterial Blood Potassium (3.6-5.2) mmol/L Urine Color Elizabeth (YELLOW) Urine Clarity Clear (Clear) Urine pH 5.0 (5.0-8.0) Ur Specific [place] 1.027 (1.003-1.030) Urine Protein 2+ H (NEGATIVE) mg/dL Urine Glucose (UA) Normal (Normal) mg/dL Urine Ketones Negative (NEGATIVE) mg/dL Urine Blood Negative (NEGATIVE) Urine Nitrate Negative (NEGATIVE) Urine Bilirubin 1+ H (NEGATIVE) Urine Urobilinogen 4.0 (0.2-1.0) mg/dL Ur Leukocyte Esterase Neg (Negative) Martine/uL Urine WBC (Auto) 3 (0-5) /hpf Urine RBC (Auto) 1 (0-3) /hpf Ur Squamous Epith Cells < 1 (0-5) /hpf Fluid Source Fluid Appearance (CLEAR) Fluid WBC (0.0-300.0) /mm3 Fluid RBC (0.0-0.0) /mm3 Fluid Tot Cell Count (0-0) Fluid Neutrophils (0-0) % Fluid Lymphocytes (0-0) % Fld Monocyte/Macrophag (0-0) % Fluid Comment 04/16/18 04/16/18 04/15/18 Range/Units 05:23 05:23 23:42 WBC (4.8-10.8) K/uL RBC (4.40-5.90) Mil/uL Hgb (12.0-18.0) g/dL Hct (35.0-51.0) % MCV (80.0-94.0) fL MCH (27.0-31.0) pg MCHC (33.0-37.0) g/dL RDW (11.5-14.5) % Plt Count (130-400) K/uL MPV (7.2-11.7) fL Neut % (Auto) (50.0-75.0) % Lymph % (Auto) (20.0-40.0) % [place] % (Auto) (0.0-10.0) % Eos % (Auto) (0.0-4.0) % Baso % (Auto) (0.0-2.0) % Neut # (Auto) (1.8-7.0) K/uL Lymph # (Auto) (1.0-4.3) K/uL [place] # (Auto) (0.0-0.8) K/uL Eos # (Auto) (0.0-0.7) K/uL Baso # (Auto) (0.0-0.2) K/uL Neutrophils % (Manual) (50-75) % Band Neutrophils % (0-2) % Lymphocytes % (Manual) (20-40) % Reactive Lymphs % (0-0) % Monocytes % (Manual) (0-10) % Eosinophils % (Manual) (0-4) % Metamyelocytes % (0-0) % Myelocytes % (0-0) % Toxic Granulation Dohle Bodies Platelet Estimate (NORMAL) Large Platelets Hypochromasia (manual) Poikilocytosis (manual Anisocytosis (manual) Target Cells PT (9.7-12.2) SECONDS INR APTT (21-34) SECONDS Puncture Site R rad pCO2 35 (35-45) mm/Hg pO2 66 L (80-100) mm/Hg HCO3 27.0 (21-28) mmol/L ABG pH 7.48 H (7.35-7.45) ABG Total CO2 27.2 (22-28) mmol/L ABG O2 Saturation 97.0 (95-98) % ABG Base Excess 2.7 (-2.0-3.0) mmol/L ABG Hemoglobin 10.5 L (11.7-17.4) g/dL ABG Carboxyhemoglobin 1.6 H (0.5-1.5) % POC ABG HHb (Measured) 2.9 (0.0-5.0) % ABG Methemoglobin 0.9 (0.0-3.0) % [place] Test Pos ABG Potassium (3.6-5.2) mmol/L A-a O2 Difference 318.0 mm/Hg Respiratory Index 4.8 Hgb O2 Saturation 94.7 L (95.0-98.0) % Glucose (75-110) mg/dl Lactate (0.7-2.1) mmol/L Vent Mode Prvc Mechanical Rate 14 FiO2 60.0 % Tidal Volume 500 PEEP 8 Crit Value Called To Crit Value Called By Crit Value Read Back Blood Gas Notified Time Sodium (132-148) mmol/L Potassium (3.6-5.2) mmol/L Chloride (98-107) mmol/L Carbon Dioxide (22-30) mmol/L Anion Gap (10-20) BUN (9-20) mg/dL Creatinine (0.8-1.5) mg/dL Est GFR ( Amer) Est GFR (Non-Af Amer) POC Glucose (mg/dL) 85 117 H (65-110) mg/dL Random Glucose (75-110) mg/dL Calcium (8.6-10.4) mg/dl Phosphorus (2.5-4.5) mg/dL Magnesium (1.6-2.3) mg/dL Total Bilirubin (0.2-1.3) mg/dL AST (17-59) U/L ALT (21-72) U/L Alkaline Phosphatase (38-126) U/L Total Protein (6.3-8.3) g/dL Albumin (3.5-5.0) g/dL Globulin (2.2-3.9) gm/dL Albumin/Globulin Ratio (1.0-2.1) Arterial Blood Potassium (3.6-5.2) mmol/L Urine Color (YELLOW) Urine Clarity (Clear) Urine pH (5.0-8.0) Ur Specific [place] (1.003-1.030) Urine Protein (NEGATIVE) mg/dL Urine Glucose (UA) (Normal) mg/dL Urine Ketones (NEGATIVE) mg/dL Urine Blood (NEGATIVE) Urine Nitrate (NEGATIVE) Urine Bilirubin (NEGATIVE) Urine Urobilinogen (0.2-1.0) mg/dL Ur Leukocyte Esterase (Negative) Martine/uL Urine WBC (Auto) (0-5) /hpf Urine RBC (Auto) (0-3) /hpf Ur Squamous Epith Cells (0-5) /hpf Fluid Source Fluid Appearance (CLEAR) Fluid WBC (0.0-300.0) /mm3 Fluid RBC (0.0-0.0) /mm3 Fluid Tot Cell Count (0-0) Fluid Neutrophils (0-0) % Fluid Lymphocytes (0-0) % Fld Monocyte/Macrophag (0-0) % Fluid Comment 04/15/18 04/15/18 04/15/18 Range/Units 22:23 21:48 21:48 WBC 12.6 H (4.8-10.8) K/uL RBC 4.29 L (4.40-5.90) Mil/uL Hgb 12.2 (12.0-18.0) g/dL Hct 37.8 (35.0-51.0) % MCV 88.2 (80.0-94.0) fL MCH 28.4 (27.0-31.0) pg MCHC 32.2 L (33.0-37.0) g/dL RDW 14.3 (11.5-14.5) % Plt Count 168 (130-400) K/uL MPV 9.3 (7.2-11.7) fL Neut % (Auto) 91.0 H (50.0-75.0) % Lymph % (Auto) 3.3 L (20.0-40.0) % [place] % (Auto) 3.8 (0.0-10.0) % Eos % (Auto) 0.2 (0.0-4.0) % Baso % (Auto) 1.7 (0.0-2.0) % Neut # (Auto) 11.5 H (1.8-7.0) K/uL Lymph # (Auto) 0.4 L (1.0-4.3) K/uL [place] # (Auto) 0.5 (0.0-0.8) K/uL Eos # (Auto) 0.0 (0.0-0.7) K/uL Baso # (Auto) 0.2 (0.0-0.2) K/uL Neutrophils % (Manual) 54 (50-75) % Band Neutrophils % 31 H* (0-2) % Lymphocytes % (Manual) 5 L (20-40) % Reactive Lymphs % 1 H (0-0) % Monocytes % (Manual) 5 (0-10) % Eosinophils % (Manual) 1 (0-4) % Metamyelocytes % (0-0) % Myelocytes % 3 H (0-0) % Toxic Granulation Dohle Bodies Platelet Estimate Normal (NORMAL) Large Platelets Hypochromasia (manual) Slight Poikilocytosis (manual Slight Anisocytosis (manual) Slight Target Cells PT (9.7-12.2) SECONDS INR APTT (21-34) SECONDS Puncture Site Lr pCO2 48 H (35-45) mm/Hg pO2 118 H (80-100) mm/Hg HCO3 28.1 H (21-28) mmol/L ABG pH 7.40 (7.35-7.45) ABG Total CO2 31.2 H (22-28) mmol/L ABG O2 Saturation 99.3 H (95-98) % ABG Base Excess 4.0 H (-2.0-3.0) mmol/L ABG Hemoglobin (11.7-17.4) g/dL ABG Carboxyhemoglobin (0.5-1.5) % POC ABG HHb (Measured) (0.0-5.0) % ABG Methemoglobin (0.0-3.0) % [place] Test Unable ABG Potassium 3.3 L (3.6-5.2) mmol/L A-a O2 Difference 535.0 mm/Hg Respiratory Index 4.5 Hgb O2 Saturation (95.0-98.0) % Glucose 109 (75-110) mg/dl Lactate 1.3 (0.7-2.1) mmol/L Vent Mode Prvc Mechanical Rate 14 FiO2 100.0 % Tidal Volume 500 PEEP 8 Crit Value Called To Crit Value Called By Crit Value Read Back Blood Gas Notified Time Sodium 140.0 134 (132-148) mmol/L Potassium 2.6 L (3.6-5.2) mmol/L Chloride 109.0 H 100 (98-107) mmol/L Carbon Dioxide 28 (22-30) mmol/L Anion Gap 8 L (10-20) BUN 11 (9-20) mg/dL Creatinine 0.7 L (0.8-1.5) mg/dL Est GFR ( Amer) > 60 Est GFR (Non-Af Amer) > 60 POC Glucose (mg/dL) (65-110) mg/dL Random Glucose 109 (75-110) mg/dL Calcium 8.1 L (8.6-10.4) mg/dl Phosphorus 2.5 (2.5-4.5) mg/dL Magnesium 2.3 (1.6-2.3) mg/dL Total Bilirubin 1.3 (0.2-1.3) mg/dL AST 187 H D (17-59) U/L ALT 112 H (21-72) U/L Alkaline Phosphatase 177 H D (38-126) U/L Total Protein 6.6 (6.3-8.3) g/dL Albumin 3.1 L (3.5-5.0) g/dL Globulin 3.5 (2.2-3.9) gm/dL Albumin/Globulin Ratio 0.9 L (1.0-2.1) Arterial Blood Potassium 3.3 L (3.6-5.2) mmol/L Urine Color (YELLOW) Urine Clarity (Clear) Urine pH (5.0-8.0) Ur Specific [place] (1.003-1.030) Urine Protein (NEGATIVE) mg/dL Urine Glucose (UA) (Normal) mg/dL Urine Ketones (NEGATIVE) mg/dL Urine Blood (NEGATIVE) Urine Nitrate (NEGATIVE) Urine Bilirubin (NEGATIVE) Urine Urobilinogen (0.2-1.0) mg/dL Ur Leukocyte Esterase (Negative) Martine/uL Urine WBC (Auto) (0-5) /hpf Urine RBC (Auto) (0-3) /hpf Ur Squamous Epith Cells (0-5) /hpf Fluid Source Fluid Appearance (CLEAR) Fluid WBC (0.0-300.0) /mm3 Fluid RBC (0.0-0.0) /mm3 Fluid Tot Cell Count (0-0) Fluid Neutrophils (0-0) % Fluid Lymphocytes (0-0) % Fld Monocyte/Macrophag (0-0) % Fluid Comment 04/15/18 04/15/18 04/15/18 Range/Units 16:25 13:49 12:00 WBC (4.8-10.8) K/uL RBC (4.40-5.90) Mil/uL Hgb (12.0-18.0) g/dL Hct (35.0-51.0) % MCV (80.0-94.0) fL MCH (27.0-31.0) pg MCHC (33.0-37.0) g/dL RDW (11.5-14.5) % Plt Count (130-400) K/uL MPV (7.2-11.7) fL Neut % (Auto) (50.0-75.0) % Lymph % (Auto) (20.0-40.0) % [place] % (Auto) (0.0-10.0) % Eos % (Auto) (0.0-4.0) % Baso % (Auto) (0.0-2.0) % Neut # (Auto) (1.8-7.0) K/uL Lymph # (Auto) (1.0-4.3) K/uL [place] # (Auto) (0.0-0.8) K/uL Eos # (Auto) (0.0-0.7) K/uL Baso # (Auto) (0.0-0.2) K/uL Neutrophils % (Manual) (50-75) % Band Neutrophils % (0-2) % Lymphocytes % (Manual) (20-40) % Reactive Lymphs % (0-0) % Monocytes % (Manual) (0-10) % Eosinophils % (Manual) (0-4) % Metamyelocytes % (0-0) % Myelocytes % (0-0) % Toxic Granulation Dohle Bodies Platelet Estimate (NORMAL) Large Platelets Hypochromasia (manual) Poikilocytosis (manual Anisocytosis (manual) Target Cells PT 13.0 H (9.7-12.2) SECONDS INR 1.2 APTT 35 H (21-34) SECONDS Puncture Site Pleural fluid pCO2 59 H (35-45) mm/Hg pO2 23 L* (80-100) mm/Hg HCO3 4.7 L* (21-28) mmol/L ABG pH 6.87 L* (7.35-7.45) ABG Total CO2 (22-28) mmol/L ABG O2 Saturation (95-98) % ABG Base Excess -23.0 L (-2.0-3.0) mmol/L ABG Hemoglobin (11.7-17.4) g/dL ABG Carboxyhemoglobin (0.5-1.5) % POC ABG HHb (Measured) (0.0-5.0) % ABG Methemoglobin (0.0-3.0) % [place] Test Na ABG Potassium (3.6-5.2) mmol/L A-a O2 Difference mm/Hg Respiratory Index Hgb O2 Saturation (95.0-98.0) % Glucose (75-110) mg/dl Lactate (0.7-2.1) mmol/L Vent Mode Mechanical Rate FiO2 % Tidal Volume PEEP Crit Value Called To Dr. trejo Crit Value Called By Luis Fernando denny engraver pantograph Crit Value Read Back Yes Blood Gas Notified Time 1215 Sodium (132-148) mmol/L Potassium (3.6-5.2) mmol/L Chloride (98-107) mmol/L Carbon Dioxide (22-30) mmol/L Anion Gap (10-20) BUN (9-20) mg/dL Creatinine (0.8-1.5) mg/dL Est GFR ( Amer) Est GFR (Non-Af Amer) POC Glucose (mg/dL) (65-110) mg/dL Random Glucose (75-110) mg/dL Calcium (8.6-10.4) mg/dl Phosphorus (2.5-4.5) mg/dL Magnesium (1.6-2.3) mg/dL Total Bilirubin (0.2-1.3) mg/dL AST (17-59) U/L ALT (21-72) U/L Alkaline Phosphatase (38-126) U/L Total Protein (6.3-8.3) g/dL Albumin (3.5-5.0) g/dL Globulin (2.2-3.9) gm/dL Albumin/Globulin Ratio (1.0-2.1) Arterial Blood Potassium (3.6-5.2) mmol/L Urine Color (YELLOW) Urine Clarity (Clear) Urine pH (5.0-8.0) Ur Specific [place] (1.003-1.030) Urine Protein (NEGATIVE) mg/dL Urine Glucose (UA) (Normal) mg/dL Urine Ketones (NEGATIVE) mg/dL Urine Blood (NEGATIVE) Urine Nitrate (NEGATIVE) Urine Bilirubin (NEGATIVE) Urine Urobilinogen (0.2-1.0) mg/dL Ur Leukocyte Esterase (Negative) Martine/uL Urine WBC (Auto) (0-5) /hpf Urine RBC (Auto) (0-3) /hpf Ur Squamous Epith Cells (0-5) /hpf Fluid Source Pleural Fluid Appearance Cloudy (CLEAR) Fluid WBC 3841159.0 H (0.0-300.0) /mm3 Fluid RBC 52887.0 H (0.0-0.0) /mm3 Fluid Tot Cell Count 100 H (0-0) Fluid Neutrophils 95.0 H (0-0) % Fluid Lymphocytes 2.0 H (0-0) % Fld Monocyte/Macrophag 3 H (0-0) % Fluid Comment Laboratory Results - last 24 hr 04/15/18 04/15/18 04/15/18 12:00 13:49 16:25 WBC RBC Hgb Hct MCV MCH MCHC RDW Plt Count MPV Neut % (Auto) Lymph % (Auto) [place] % (Auto) Eos % (Auto) Baso % (Auto) Neut # (Auto) Lymph # (Auto) [place] # (Auto) Eos # (Auto) Baso # (Auto) Neutrophils % (Manual) Band Neutrophils % Lymphocytes % (Manual) Reactive Lymphs % Monocytes % (Manual) Eosinophils % (Manual) Metamyelocytes % Myelocytes % Toxic Granulation Dohle Bodies Platelet Estimate Large Platelets Hypochromasia (manual) Poikilocytosis (manual Anisocytosis (manual) Target Cells PT 13.0 H INR 1.2 APTT 35 H Puncture Site Pleural fluid pCO2 59 H pO2 23 L* HCO3 4.7 L* ABG pH 6.87 L* ABG Total CO2 ABG O2 Saturation ABG Base Excess -23.0 L ABG Hemoglobin ABG Carboxyhemoglobin POC ABG HHb (Measured) ABG Methemoglobin [place] Test Na ABG Potassium A-a O2 Difference Respiratory Index Hgb O2 Saturation Glucose Lactate Vent Mode Mechanical Rate FiO2 Tidal Volume PEEP Crit Value Called To Dr. trejo Crit Value Called By Luis Fernando denny engraver pantograph Crit Value Read Back Yes Blood Gas Notified Time 1215 Sodium Potassium Chloride Carbon Dioxide Anion Gap BUN Creatinine Est GFR ( Amer) Est GFR (Non-Af Amer) POC Glucose (mg/dL) Random Glucose Calcium Phosphorus Magnesium Total Bilirubin AST ALT Alkaline Phosphatase Total Protein Albumin Globulin Albumin/Globulin Ratio Arterial Blood Potassium Urine Color Urine Clarity Urine pH Ur Specific [place] Urine Protein Urine Glucose (UA) Urine Ketones Urine Blood Urine Nitrate Urine Bilirubin Urine Urobilinogen Ur Leukocyte Esterase Urine WBC (Auto) Urine RBC (Auto) Ur Squamous Epith Cells Fluid Source Pleural Fluid Appearance Cloudy Fluid WBC 7690087.0 H Fluid RBC 43161.0 H Fluid Tot Cell Count 100 H Fluid Neutrophils 95.0 H Fluid Lymphocytes 2.0 H Fld Monocyte/Macrophag 3 H Fluid Comment 04/15/18 04/15/18 04/15/18 21:48 21:48 22:23 WBC 12.6 H RBC 4.29 L Hgb 12.2 Hct 37.8 MCV 88.2 MCH 28.4 MCHC 32.2 L RDW 14.3 Plt Count 168 MPV 9.3 Neut % (Auto) 91.0 H Lymph % (Auto) 3.3 L [place] % (Auto) 3.8 Eos % (Auto) 0.2 Baso % (Auto) 1.7 Neut # (Auto) 11.5 H Lymph # (Auto) 0.4 L [place] # (Auto) 0.5 Eos # (Auto) 0.0 Baso # (Auto) 0.2 Neutrophils % (Manual) 54 Band Neutrophils % 31 H* Lymphocytes % (Manual) 5 L Reactive Lymphs % 1 H Monocytes % (Manual) 5 Eosinophils % (Manual) 1 Metamyelocytes % Myelocytes % 3 H Toxic Granulation Dohle Bodies Platelet Estimate Normal Large Platelets Hypochromasia (manual) Slight Poikilocytosis (manual Slight Anisocytosis (manual) Slight Target Cells PT INR APTT Puncture Site Lr pCO2 48 H pO2 118 H HCO3 28.1 H ABG pH 7.40 ABG Total CO2 31.2 H ABG O2 Saturation 99.3 H ABG Base Excess 4.0 H ABG Hemoglobin ABG Carboxyhemoglobin POC ABG HHb (Measured) ABG Methemoglobin [place] Test Unable ABG Potassium 3.3 L A-a O2 Difference 535.0 Respiratory Index 4.5 Hgb O2 Saturation Glucose 109 Lactate 1.3 Vent Mode Prvc Mechanical Rate 14 FiO2 100.0 Tidal Volume 500 PEEP 8 Crit Value Called To Crit Value Called By Crit Value Read Back Blood Gas Notified Time Sodium 134 140.0 Potassium 2.6 L Chloride 100 109.0 H Carbon Dioxide 28 Anion Gap 8 L BUN 11 Creatinine 0.7 L Est GFR ( Amer) > 60 Est GFR (Non-Af Amer) > 60 POC Glucose (mg/dL) Random Glucose 109 Calcium 8.1 L Phosphorus 2.5 Magnesium 2.3 Total Bilirubin 1.3 AST 187 H D ALT 112 H Alkaline Phosphatase 177 H D Total Protein 6.6 Albumin 3.1 L Globulin 3.5 Albumin/Globulin Ratio 0.9 L Arterial Blood Potassium 3.3 L Urine Color Urine Clarity Urine pH Ur Specific [place] Urine Protein Urine Glucose (UA) Urine Ketones Urine Blood Urine Nitrate Urine Bilirubin Urine Urobilinogen Ur Leukocyte Esterase Urine WBC (Auto) Urine RBC (Auto) Ur Squamous Epith Cells Fluid Source Fluid Appearance Fluid WBC Fluid RBC Fluid Tot Cell Count Fluid Neutrophils Fluid Lymphocytes Fld Monocyte/Macrophag Fluid Comment 04/15/18 04/16/18 04/16/18 23:42 05:23 05:23 WBC RBC Hgb Hct MCV MCH MCHC RDW Plt Count MPV Neut % (Auto) Lymph % (Auto) [place] % (Auto) Eos % (Auto) Baso % (Auto) Neut # (Auto) Lymph # (Auto) [place] # (Auto) Eos # (Auto) Baso # (Auto) Neutrophils % (Manual) Band Neutrophils % Lymphocytes % (Manual) Reactive Lymphs % Monocytes % (Manual) Eosinophils % (Manual) Metamyelocytes % Myelocytes % Toxic Granulation Dohle Bodies Platelet Estimate Large Platelets Hypochromasia (manual) Poikilocytosis (manual Anisocytosis (manual) Target Cells PT INR APTT Puncture Site R rad pCO2 35 pO2 66 L HCO3 27.0 ABG pH 7.48 H ABG Total CO2 27.2 ABG O2 Saturation 97.0 ABG Base Excess 2.7 ABG Hemoglobin 10.5 L ABG Carboxyhemoglobin 1.6 H POC ABG HHb (Measured) 2.9 ABG Methemoglobin 0.9 [place] Test Pos ABG Potassium A-a O2 Difference 318.0 Respiratory Index 4.8 Hgb O2 Saturation 94.7 L Glucose Lactate Vent Mode Prvc Mechanical Rate 14 FiO2 60.0 Tidal Volume 500 PEEP 8 Crit Value Called To Crit Value Called By Crit Value Read Back Blood Gas Notified Time Sodium Potassium Chloride Carbon Dioxide Anion Gap BUN Creatinine Est GFR ( Amer) Est GFR (Non-Af Amer) POC Glucose (mg/dL) 117 H 85 Random Glucose Calcium Phosphorus Magnesium Total Bilirubin AST ALT Alkaline Phosphatase Total Protein Albumin Globulin Albumin/Globulin Ratio Arterial Blood Potassium Urine Color Urine Clarity Urine pH Ur Specific [place] Urine Protein Urine Glucose (UA) Urine Ketones Urine Blood Urine Nitrate Urine Bilirubin Urine Urobilinogen Ur Leukocyte Esterase Urine WBC (Auto) Urine RBC (Auto) Ur Squamous Epith Cells Fluid Source Fluid Appearance Fluid WBC Fluid RBC Fluid Tot Cell Count Fluid Neutrophils Fluid Lymphocytes Fld Monocyte/Macrophag Fluid Comment 04/16/18 04/16/18 04/16/18 05:42 05:42 05:42 WBC 11.0 H RBC 3.85 L Hgb 11.2 L Hct 34.1 L MCV 88.5 MCH 29.0 MCHC 32.8 L RDW 14.4 Plt Count 150 MPV 9.7 Neut % (Auto) 89.2 H Lymph % (Auto) 4.9 L [place] % (Auto) 5.0 Eos % (Auto) 0.7 Baso % (Auto) 0.2 Neut # (Auto) 9.8 H Lymph # (Auto) 0.5 L [place] # (Auto) 0.5 Eos # (Auto) 0.1 Baso # (Auto) 0.0 Neutrophils % (Manual) 51 Band Neutrophils % 32 H* Lymphocytes % (Manual) 5 L Reactive Lymphs % 1 H Monocytes % (Manual) 6 Eosinophils % (Manual) 2 Metamyelocytes % 2 H Myelocytes % 1 H Toxic Granulation Present Dohle Bodies Present Platelet Estimate Normal Large Platelets Present Hypochromasia (manual) Poikilocytosis (manual Anisocytosis (manual) Target Cells Slight PT INR APTT Puncture Site pCO2 pO2 HCO3 ABG pH ABG Total CO2 ABG O2 Saturation ABG Base Excess ABG Hemoglobin ABG Carboxyhemoglobin POC ABG HHb (Measured) ABG Methemoglobin [place] Test ABG Potassium A-a O2 Difference Respiratory Index Hgb O2 Saturation Glucose Lactate Vent Mode Mechanical Rate FiO2 Tidal Volume PEEP Crit Value Called To Crit Value Called By Crit Value Read Back Blood Gas Notified Time Sodium 136 Potassium 3.0 L Chloride 104 Carbon Dioxide 27 Anion Gap 7 L BUN 13 Creatinine 0.9 Est GFR ( Amer) > 60 Est GFR (Non-Af Amer) > 60 POC Glucose (mg/dL) Random Glucose 92 Calcium 7.8 L Phosphorus 2.0 L Magnesium 2.3 Total Bilirubin 1.2 AST 172 H ALT 109 H Alkaline Phosphatase 157 H Total Protein 5.4 L Albumin 2.6 L Globulin 2.8 Albumin/Globulin Ratio 0.9 L Arterial Blood Potassium Urine Color [place] Urine Clarity Clear Urine pH 5.0 Ur Specific [place] 1.027 Urine Protein 2+ H Urine Glucose (UA) Normal Urine Ketones Negative Urine Blood Negative Urine Nitrate Negative Urine Bilirubin 1+ H Urine Urobilinogen 4.0 Ur Leukocyte Esterase Neg Urine WBC (Auto) 3 Urine RBC (Auto) 1 Ur Squamous Epith Cells < 1 Fluid Source Fluid Appearance Fluid WBC Fluid RBC Fluid Tot Cell Count Fluid Neutrophils Fluid Lymphocytes Fld Monocyte/Macrophag Fluid Comment Radiology Impressions: Radiology Impressions Duplex Scan Lower Extremity Artery 04/14/18 00:34 IMPRESSION: Right: No evidence of deep or superficial vein thrombosis of the right lower extremity. Normal valve function noted of the right side. Left: No evidence of deep or superficial vein thrombosis of the left lower extremity. Normal valve function noted of the left side. Joint Effusion US 04/15/18 09:26 Impression: Right pleural effusion. Chest X-Ray 04/15/18 12:08 IMPRESSION: Cardiomegaly. Hypoinflation. Improving but persistent small right-sided pleural effusion and consolidation. Additional patchy opacities within the right hemithorax may reflect infiltrate. Recommend continued follow-up to resolution. Chest CT 04/15/18 15:57 Impression: Cardiomegaly. Trace pericardial effusion. Coronary artery calcifications. Extensive consolidation throughout the right hemithorax with relative sparing of the right lung apex. Small loculated right-sided pleural effusion measures approximately 2.1 cm in maximum depth; super infection is not excluded. Recommend continued close interval follow-up to resolution. Mild left basilar atelectasis. The left hemithorax appears otherwise grossly clear. Limited visualization of the upper abdomen reveals hepatomegaly. Diffuse hepatic steatosis with 2 more focal hypodense regions favored to represent focal fatty infiltration. Chest X-Ray 04/15/18 21:43 IMPRESSION: Interval endotracheal tube insertion tip approximately 2 cm from the rashad. Interval right thoracentesis-no gross pneumothorax appreciated. Will decrease right pleural effusion. Interval inferred improved right lung aeration. Chest X-Ray 04/16/18 07:00 IMPRESSION: Normal change in mid to inferior right-sided consolidation. Small right pleural effusion evident. Elevated right hemidiaphragm reiterated. EKG/Cardiology Studies: Cardiology / EKG Studies 04/15/18 20:28 EKG [ELECTROCARDIOGRAM] Stat Comment: Mode Of Transportation: Reason For Exam: tachycardia Critical Care Progress Note - Vent Settings MODE:: PRVC TIDAL VOLUME:: 450 RESP RATE:: 16 FIO2:: 50 PEEP:: 5 - Nutrition Nutrition: Nutrition Category Date Time Status NPO Diet [DIET] Diets 04/16/18 Breakfast Active Assessment/Plan - Assessment and Plan (Free Text) Plan: 43 year old male with no pmhx presenting to ED with RLQ abdominal pain, fever and chills since last , constipated x 3 days, code sepsis, elevated WBC, bandemia, elevated lactate, CT shows Rt lung consolidation, most likely due to PNA 2/2 to alcohol intoxication. thoracentesis 02/13, likely superimposed consolidation in right upper lobe as well as possible right lower lobe as per 04/15 chest xray. 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 Neuro Intubated and sedated last night alcohol withdrawal syndrome with DT on propofol and Versed Precedex Ativan Q4H PRN Pulm PNA 2/2 to aspiration most likely from alcohol intoxication Intubated on vent PRVC 14/450/5/50 Chest xray - normal change in mid to inferior right sided consolidation, small right pleural effusion evident Ipatropium Q6Hrs abx - Clinda, vanco Zosyn Cardio thoracic sx consult - Dr Meza - recs are appreciated Chest xray tomorrow Cardio tachycardia - most likely from shortness of breath continue to monitor GI Tube feedings Renal FAB, elevated cr monitor urine output Kphosp x1 today for low potassium and phos ID today WBC 11, bands increasing from 31 to 58 Meropenem Q8, Vanco Q12H, Clinda Q8H Tamiflu Legionella, flu - negative Bcx pending, Ucx prelim no growth Dr Spring - ID follow up recs HIV, Hep, atypicals - negative pleural fluid - no growth pleural studies - WBC ~2 million, PPX DVT: lovenox GI: protonix Multivit, thiamine, Folic acid tylenol PRN Plan discussed with Dr Luis Antonio Tate, PGY-1 - Date & Time Date: 04/16/18 Time: 09:00 <Jimmie Salmon - Last Filed: 04/21/18 07:42> CCU Objective - Vital Signs / Intake & Output Vital Signs (Last 4 hours): Vital Signs Temp Pulse Resp BP Pulse Ox 04/21/18 07:00 86 93 L 04/21/18 06:33 88 102/61 92 L 04/21/18 06:00 95 H 94 L 04/21/18 05:33 83 112/66 93 L 04/21/18 05:00 86 22 93 L 04/21/18 04:33 89 103/61 98 04/21/18 04:00 99 F 96 H 24 98 Intake and Output (Last 8hrs): Intake & Output 04/20/18 04/21/18 04/21/18 22:59 06:59 14:59 Intake Total 1739.6 1739.6 203.7 Output Total 500 640 0 Balance 1239.6 1099.6 203.7 Weight 220 lb Intake: IV 500 400 Intake, IV Amount 709.6 959.6 163.7 Left Hand 200 450 100 Right Forearm 268.0 268.0 33.5 Right Hand 92.8 92.8 11.6 Right Upper arm 148.8 148.8 18.6 Tube Feeding 320 320 40 Other 210 60 Output: Chest Tube Drainage 110 90 Right Anterior Chest 110 90 Urine 390 550 0 Urethral (Roman) 390 550 0 Other: # Bowel Movements 0 0 0 - Medications Active Medications: Active Medications Generic Name Dose Route Start Last Admin Trade Name Freq PRN Reason Stop Dose Admin Albuterol/Ipratropium 3 ml 04/15/18 08:00 04/21/18 01:41 Duoneb 3 Mg/0.5 Mg (3 Ml) Ud INH 3 ml RQ6 JESUS Administration Docusate Sodium 100 mg 04/14/18 18:30 04/20/18 17:28 Colace PO 100 mg TID JESUS Administration Enoxaparin Sodium 40 mg 04/14/18 10:00 04/20/18 11:06 Lovenox SC 40 mg DAILY JESUS Administration Folic Acid 1 mg 04/14/18 10:00 04/20/18 11:05 Folic Acid PO 1 mg DAILY JESUS Administration Vancomycin HCl 1,250 mg/ 250 mls @ 125 mls/hr 04/16/18 01:30 04/21/18 02:00 Sodium Chloride IVPB 125 mls/hr Q12H JESUS Administration Protocol Propofol 1,000 mg in 100 mls @ 2.79 mls/hr 04/15/18 21:20 04/21/18 05:53 Diprivan IV 60 mcg/kg/min .Q24H PRN 33 mls/hr Agitation Administration Protocol 5 MCG/KG/MIN Meropenem 1 gm/ Sodium 100 mls @ 100 mls/hr 04/16/18 21:00 04/21/18 04:35 Chloride IVPB 100 mls/hr Q8H JESUS Administration Protocol Clindamycin Phosphate 900 mg/ 106 mls @ 100 mls/hr 04/16/18 23:30 04/21/18 06:33 Sodium Chloride IV 100 mls/hr Q8H JESUS Administration Protocol Dexmedetomidine HCl 200 mcg/ 50 mls @ 4.65 mls/hr 04/17/18 15:56 04/21/18 03:42 Sodium Chloride IV 0.5 mcg/kg/hr TITR PRN 11.63 mls/hr Agitation Administration Protocol 0.2 MCG/KG/HR Fentanyl Citrate 2,500 mcg/ 250 mls @ 19.92 mls/hr 04/19/18 22:00 04/20/18 23:35 Sodium Chloride IV Not Given .[id number] JESUS Protocol 2 MCG/KG/HR Ibuprofen 400 mg 04/19/18 03:31 04/21/18 03:14 Motrin Tab PO 400 mg Q6H PRN Administration fever Lactobacillus Acidophilus 1 cap 04/14/18 18:45 04/20/18 17:29 Bacid Acidophilus PO 1 cap BID JESUS Administration Multivitamins 1 tab 04/14/18 10:00 04/20/18 11:05 Hexavitamin PO 1 tab DAILY JESUS Administration Pantoprazole Sodium 40 mg 04/14/18 10:00 04/20/18 10:53 Protonix Inj IVP 40 mg DAILY JESUS Administration Sennosides 8.6 mg 04/14/18 00:15 04/20/18 17:29 Senokot Tab PO 8.6 mg BID JESUS Administration Thiamine HCl 100 mg 04/14/18 10:00 04/20/18 11:05 Vitamin B1 Tab PO 100 mg DAILY JESUS Administration - Patient Studies Lab Studies: Microbiology Studies 04/18/18 17:49 Mycobacterial Culture - Preliminary Other: Please Indicate 04/18/18 17:49 Gram Stain - Preliminary Pleural Fluid Body Fluid Culture - Preliminary NO GROWTH AFTER 2 DAYS 04/18/18 17:49 Anaerobic Culture - Final Pleural Fluid NO ANAEROBES ISOLATED. Lab Studies 04/21/18 04/21/18 04/21/18 Range/Units 05:53 05:51 05:46 WBC 15.5 H (4.8-10.8) K/uL RBC 3.91 L (4.40-5.90) Mil/uL Hgb 11.6 L (12.0-18.0) g/dL Hct 34.7 L (35.0-51.0) % MCV 88.8 (80.0-94.0) fL MCH 29.6 (27.0-31.0) pg MCHC 33.3 (33.0-37.0) g/dL RDW 14.9 H (11.5-14.5) % Plt Count 405 H (130-400) K/uL MPV 9.7 (7.2-11.7) fL Neut % (Auto) 90.5 H (50.0-75.0) % Lymph % (Auto) 4.7 L (20.0-40.0) % [place] % (Auto) 3.9 (0.0-10.0) % Eos % (Auto) 0.2 (0.0-4.0) % Baso % (Auto) 0.7 (0.0-2.0) % Neut # (Auto) 14.0 H (1.8-7.0) K/uL Lymph # (Auto) 0.7 L (1.0-4.3) K/uL [place] # (Auto) 0.6 (0.0-0.8) K/uL Eos # (Auto) 0.0 (0.0-0.7) K/uL Baso # (Auto) 0.1 (0.0-0.2) K/uL Neutrophils % (Manual) (50-75) % Band Neutrophils % (0-2) % Lymphocytes % (Manual) (20-40) % Monocytes % (Manual) (0-10) % Platelet Estimate (NORMAL) Hypochromasia (manual) Anisocytosis (manual) Target Cells Puncture Site R rad pCO2 43 (35-45) mm/Hg pO2 81 (80-100) mm/Hg HCO3 27.2 (21-28) mmol/L ABG pH 7.42 (7.35-7.45) ABG Total CO2 29.2 H (22-28) mmol/L ABG O2 Saturation 98.4 H (95-98) % ABG Base Excess 3.0 (-2.0-3.0) mmol/L ABG Hemoglobin 12.0 (11.7-17.4) g/dL ABG Carboxyhemoglobin 2.1 H (0.5-1.5) % POC ABG HHb (Measured) 1.6 (0.0-5.0) % ABG Methemoglobin 0.9 (0.0-3.0) % [place] Test Pos A-a O2 Difference 293.0 mm/Hg Respiratory Index 3.6 Hgb O2 Saturation 95.5 (95.0-98.0) % Vent Mode Prvc Mechanical Rate 18 FiO2 60.0 % Tidal Volume 450 PEEP 8 Sodium 141 (132-148) mmol/L Potassium 3.6 (3.6-5.2) mmol/L Chloride 110 H (98-107) mmol/L Carbon Dioxide 26 (22-30) mmol/L Anion Gap 9 L (10-20) BUN 18 (9-20) mg/dL Creatinine 0.8 (0.8-1.5) mg/dL Est GFR ( Amer) > 60 Est GFR (Non-Af Amer) > 60 POC Glucose (mg/dL) (65-110) mg/dL Random Glucose 104 (75-110) mg/dL Calcium 7.4 L (8.6-10.4) mg/dl Total Bilirubin 0.8 (0.2-1.3) mg/dL AST 113 H D (17-59) U/L ALT 113 H (21-72) U/L Alkaline Phosphatase 338 H (38-126) U/L Total Protein 6.0 L (6.3-8.3) g/dL Albumin 2.3 L (3.5-5.0) g/dL Globulin 3.7 (2.2-3.9) gm/dL Albumin/Globulin Ratio 0.6 L (1.0-2.1) 04/21/18 04/21/18 04/20/18 Range/Units 05:03 00:20 17:49 WBC (4.8-10.8) K/uL RBC (4.40-5.90) Mil/uL Hgb (12.0-18.0) g/dL Hct (35.0-51.0) % MCV (80.0-94.0) fL MCH (27.0-31.0) pg MCHC (33.0-37.0) g/dL RDW (11.5-14.5) % Plt Count (130-400) K/uL MPV (7.2-11.7) fL Neut % (Auto) (50.0-75.0) % Lymph % (Auto) (20.0-40.0) % [place] % (Auto) (0.0-10.0) % Eos % (Auto) (0.0-4.0) % Baso % (Auto) (0.0-2.0) % Neut # (Auto) (1.8-7.0) K/uL Lymph # (Auto) (1.0-4.3) K/uL [place] # (Auto) (0.0-0.8) K/uL Eos # (Auto) (0.0-0.7) K/uL Baso # (Auto) (0.0-0.2) K/uL Neutrophils % (Manual) (50-75) % Band Neutrophils % (0-2) % Lymphocytes % (Manual) (20-40) % Monocytes % (Manual) (0-10) % Platelet Estimate (NORMAL) Hypochromasia (manual) Anisocytosis (manual) Target Cells Puncture Site pCO2 (35-45) mm/Hg pO2 (80-100) mm/Hg HCO3 (21-28) mmol/L ABG pH (7.35-7.45) ABG Total CO2 (22-28) mmol/L ABG O2 Saturation (95-98) % ABG Base Excess (-2.0-3.0) mmol/L ABG Hemoglobin (11.7-17.4) g/dL ABG Carboxyhemoglobin (0.5-1.5) % POC ABG HHb (Measured) (0.0-5.0) % ABG Methemoglobin (0.0-3.0) % [place] Test A-a O2 Difference mm/Hg Respiratory Index Hgb O2 Saturation (95.0-98.0) % Vent Mode Mechanical Rate FiO2 % Tidal Volume PEEP Sodium (132-148) mmol/L Potassium (3.6-5.2) mmol/L Chloride (98-107) mmol/L Carbon Dioxide (22-30) mmol/L Anion Gap (10-20) BUN (9-20) mg/dL Creatinine (0.8-1.5) mg/dL Est GFR ( Amer) Est GFR (Non-Af Amer) POC Glucose (mg/dL) 122 H 117 H 127 H (65-110) mg/dL Random Glucose (75-110) mg/dL Calcium (8.6-10.4) mg/dl Total Bilirubin (0.2-1.3) mg/dL AST (17-59) U/L ALT (21-72) U/L Alkaline Phosphatase (38-126) U/L Total Protein (6.3-8.3) g/dL Albumin (3.5-5.0) g/dL Globulin (2.2-3.9) gm/dL Albumin/Globulin Ratio (1.0-2.1) 04/20/18 04/20/18 Range/Units 11:31 06:07 WBC (4.8-10.8) K/uL RBC (4.40-5.90) Mil/uL Hgb (12.0-18.0) g/dL Hct (35.0-51.0) % MCV (80.0-94.0) fL MCH (27.0-31.0) pg MCHC (33.0-37.0) g/dL RDW (11.5-14.5) % Plt Count (130-400) K/uL MPV (7.2-11.7) fL Neut % (Auto) (50.0-75.0) % Lymph % (Auto) (20.0-40.0) % [place] % (Auto) (0.0-10.0) % Eos % (Auto) (0.0-4.0) % Baso % (Auto) (0.0-2.0) % Neut # (Auto) (1.8-7.0) K/uL Lymph # (Auto) (1.0-4.3) K/uL [place] # (Auto) (0.0-0.8) K/uL Eos # (Auto) (0.0-0.7) K/uL Baso # (Auto) (0.0-0.2) K/uL Neutrophils % (Manual) 84 H (50-75) % Band Neutrophils % 2 (0-2) % Lymphocytes % (Manual) 7 L (20-40) % Monocytes % (Manual) 7 (0-10) % Platelet Estimate Normal (NORMAL) Hypochromasia (manual) Slight Anisocytosis (manual) Slight Target Cells Slight Puncture Site pCO2 (35-45) mm/Hg pO2 (80-100) mm/Hg HCO3 (21-28) mmol/L ABG pH (7.35-7.45) ABG Total CO2 (22-28) mmol/L ABG O2 Saturation (95-98) % ABG Base Excess (-2.0-3.0) mmol/L ABG Hemoglobin (11.7-17.4) g/dL ABG Carboxyhemoglobin (0.5-1.5) % POC ABG HHb (Measured) (0.0-5.0) % ABG Methemoglobin (0.0-3.0) % [place] Test A-a O2 Difference mm/Hg Respiratory Index Hgb O2 Saturation (95.0-98.0) % Vent Mode Mechanical Rate FiO2 % Tidal Volume PEEP Sodium (132-148) mmol/L Potassium (3.6-5.2) mmol/L Chloride (98-107) mmol/L Carbon Dioxide (22-30) mmol/L Anion Gap (10-20) BUN (9-20) mg/dL Creatinine (0.8-1.5) mg/dL Est GFR ( Amer) Est GFR (Non-Af Amer) POC Glucose (mg/dL) 118 H (65-110) mg/dL Random Glucose (75-110) mg/dL Calcium (8.6-10.4) mg/dl Total Bilirubin (0.2-1.3) mg/dL AST (17-59) U/L ALT (21-72) U/L Alkaline Phosphatase (38-126) U/L Total Protein (6.3-8.3) g/dL Albumin (3.5-5.0) g/dL Globulin (2.2-3.9) gm/dL Albumin/Globulin Ratio (1.0-2.1) Laboratory Results - last 24 hr 04/20/18 04/20/18 04/20/18 06:07 11:31 17:49 WBC RBC Hgb Hct MCV MCH MCHC RDW Plt Count MPV Neut % (Auto) Lymph % (Auto) [place] % (Auto) Eos % (Auto) Baso % (Auto) Neut # (Auto) Lymph # (Auto) [place] # (Auto) Eos # (Auto) Baso # (Auto) Neutrophils % (Manual) 84 H Band Neutrophils % 2 Lymphocytes % (Manual) 7 L Monocytes % (Manual) 7 Platelet Estimate Normal Hypochromasia (manual) Slight Anisocytosis (manual) Slight Target Cells Slight Puncture Site pCO2 pO2 HCO3 ABG pH ABG Total CO2 ABG O2 Saturation ABG Base Excess ABG Hemoglobin ABG Carboxyhemoglobin POC ABG HHb (Measured) ABG Methemoglobin [place] Test A-a O2 Difference Respiratory Index Hgb O2 Saturation Vent Mode Mechanical Rate FiO2 Tidal Volume PEEP Sodium Potassium Chloride Carbon Dioxide Anion Gap BUN Creatinine Est GFR ( Amer) Est GFR (Non-Af Amer) POC Glucose (mg/dL) 118 H 127 H Random Glucose Calcium Total Bilirubin AST ALT Alkaline Phosphatase Total Protein Albumin Globulin Albumin/Globulin Ratio 04/21/18 04/21/18 04/21/18 00:20 05:03 05:46 WBC RBC Hgb Hct MCV MCH MCHC RDW Plt Count MPV Neut % (Auto) Lymph % (Auto) [place] % (Auto) Eos % (Auto) Baso % (Auto) Neut # (Auto) Lymph # (Auto) [place] # (Auto) Eos # (Auto) Baso # (Auto) Neutrophils % (Manual) Band Neutrophils % Lymphocytes % (Manual) Monocytes % (Manual) Platelet Estimate Hypochromasia (manual) Anisocytosis (manual) Target Cells Puncture Site R rad pCO2 43 pO2 81 HCO3 27.2 ABG pH 7.42 ABG Total CO2 29.2 H ABG O2 Saturation 98.4 H ABG Base Excess 3.0 ABG Hemoglobin 12.0 ABG Carboxyhemoglobin 2.1 H POC ABG HHb (Measured) 1.6 ABG Methemoglobin 0.9 [place] Test Pos A-a O2 Difference 293.0 Respiratory Index 3.6 Hgb O2 Saturation 95.5 Vent Mode Prvc Mechanical Rate 18 FiO2 60.0 Tidal Volume 450 PEEP 8 Sodium Potassium Chloride Carbon Dioxide Anion Gap BUN Creatinine Est GFR ( Amer) Est GFR (Non-Af Amer) POC Glucose (mg/dL) 117 H 122 H Random Glucose Calcium Total Bilirubin AST ALT Alkaline Phosphatase Total Protein Albumin Globulin Albumin/Globulin Ratio 04/21/18 04/21/18 05:51 05:53 WBC 15.5 H RBC 3.91 L Hgb 11.6 L Hct 34.7 L MCV 88.8 MCH 29.6 MCHC 33.3 RDW 14.9 H Plt Count 405 H MPV 9.7 Neut % (Auto) 90.5 H Lymph % (Auto) 4.7 L [place] % (Auto) 3.9 Eos % (Auto) 0.2 Baso % (Auto) 0.7 Neut # (Auto) 14.0 H Lymph # (Auto) 0.7 L [place] # (Auto) 0.6 Eos # (Auto) 0.0 Baso # (Auto) 0.1 Neutrophils % (Manual) Band Neutrophils % Lymphocytes % (Manual) Monocytes % (Manual) Platelet Estimate Hypochromasia (manual) Anisocytosis (manual) Target Cells Puncture Site pCO2 pO2 HCO3 ABG pH ABG Total CO2 ABG O2 Saturation ABG Base Excess ABG Hemoglobin ABG Carboxyhemoglobin POC ABG HHb (Measured) ABG Methemoglobin [place] Test A-a O2 Difference Respiratory Index Hgb O2 Saturation Vent Mode Mechanical Rate FiO2 Tidal Volume PEEP Sodium 141 Potassium 3.6 Chloride 110 H Carbon Dioxide 26 Anion Gap 9 L BUN 18 Creatinine 0.8 Est GFR ( Amer) > 60 Est GFR (Non-Af Amer) > 60 POC Glucose (mg/dL) Random Glucose 104 Calcium 7.4 L Total Bilirubin 0.8 AST 113 H D ALT 113 H Alkaline Phosphatase 338 H Total Protein 6.0 L Albumin 2.3 L Globulin 3.7 Albumin/Globulin Ratio 0.6 L Radiology Impressions: Radiology Impressions Chest X-Ray 04/20/18 07:00 IMPRESSION: Right chest tube. Small right pleural effusion. No pneumothorax. ETT and NG tube. Opacity lower right hemithorax possible pneumonia/atelectasis. Chest CT 04/20/18 08:00 IMPRESSION: Decreased right pleural effusion. Right chest tube. Extensive right lower lobe atelectasis with right middle lobe and left lower lobe subsegmental atelectasis. Small left pleural effusion. No pneumothorax. Endotracheal tube and nasogastric tube noted. Critical Care Progress Note - Nutrition Nutrition: Nutrition Category Date Time Status NPO Diet [DIET] Diets 04/16/18 Breakfast Active Attending/Attestation - Attestation I have personally seen and examined this patient.: Yes I have fully participated in the care of the patient.: Yes I have reviewed all pertinent clinical information: Yes Notes (Text): Today: , April 16, 2018 The patient was Seen/interviewed and examined by me at the bedside during ICU round, Medical records reviewed and Management issues were discussed and formulated with the house staff. Events reviewed I have reviewed all the relevant clinical, laboratory, hemodynamic, radiographic data and medications Pain issues, skin care, head of the bed elevation, glycemic control were addressed. I concur with resident's assessment and plan of care as transcribed in Dr. Tate note. Total critical care time 35 minutes
--- NOTE | 2018-04-16 13:01 | CP.PCM.PN ---
Subjective - Date & Time of Evaluation Date of Evaluation: 04/16/18 Time of Evaluation: 12:44 - Subjective Subjective: Reason for consultation: Early empyema, right. Requested by Pt s/e. Imaging studies and lab reviewed. 43 yo male, hx of ETOH(last 3 days ago) presented to ER with abdominal and chest pain. CT chest: a large right pleural effusion. Thoracentesis by Dr. Rangel who drained out 1000cc and early fluid analysis is consistent with exudative effusion. Reapeat ct yesterday: almost complete evacution of effusion, but extensive consolidation of right lower lobe and some upper and middle lobe. He since yesterday has been intubated and has DTs. The pts clinHical pulm issue is consolidations to be treated by antibiotics(currently on triple rx). He may develop parapneumonic effusion again down the road which may require surgical drainage. a/p: 1. Right parapneumonic effusion+ early empyema. 2. Antibiotics. 3. No surgical intervention at this time. 4. d/w Marion Rangel and Krysten Keen. Objective - Vital Signs/Intake and Output Vital Signs (last 24 hours): Temp Pulse Resp BP Pulse Ox 99.2 F 100 H 42 H 97/61 L 97 04/16/18 08:00 04/16/18 10:00 04/16/18 10:00 04/16/18 09:37 04/16/18 10:00 Intake and Output: 04/16/18 04/16/18 06:59 18:59 Intake Total 2546 449 Output Total 1000 350 Balance 1546 99 - Medications Medications: Current Medications Acetylcysteine (Acetylcysteine 20%) 4 ml INH RQ6 [facility] Last Admin: 04/16/18 08:07 Dose: 4 ml Albuterol/Ipratropium (Duoneb 3 Mg/0.5 Mg (3 Ml) Ud) 3 ml INH RQ6 [facility] Last Admin: 04/16/18 08:07 Dose: 3 ml Docusate Sodium (Colace) 100 mg PO TID [facility] Last Admin: 04/16/18 09:45 Dose: 100 mg Enoxaparin Sodium (Lovenox) 40 mg SC DAILY [facility] Last Admin: 04/16/18 09:44 Dose: 40 mg Folic Acid (Folic Acid) 1 mg PO DAILY [facility] Last Admin: 04/16/18 09:45 Dose: 1 mg Piperacillin Sod/Tazobactam Sod (Zosyn 3.375 Gm Iv Premix) 3.375 gm in 50 mls @ 100 mls/hr IVPB Q6H JESUS; Protocol Last Admin: 04/16/18 11:21 Dose: 100 mls/hr Vancomycin HCl 1,250 mg/ (Sodium Chloride) 250 mls @ 125 mls/hr IVPB Q12H JESUS; Protocol Last Admin: 04/16/18 02:30 Dose: 125 mls/hr Clindamycin Phosphate 600 mg/ (Sodium Chloride) 104 mls @ 100 mls/hr IV Q8H JESUS; Protocol Last Admin: 04/16/18 09:43 Dose: 100 mls/hr Propofol (Diprivan) 1,000 mg in 100 mls @ 2.79 mls/hr IV .Q24H PRN; Protocol PRN Reason: Agitation Last Admin: 04/16/18 03:26 Dose: 25 mcg/kg/min, 13.95 mls/hr Midazolam HCl 100 mg/ Sodium (Chloride) 100 mls @ 1.86 mls/hr IV .Q24H JESUS; Protocol Last Titration: 04/16/18 07:00 Dose: 0.06 mg/kg/hr, 6 mls/hr Potassium Phosphate 30 mmole/ (Sodium Chloride) 260 mls @ 63 mls/hr IV ONCE ONE Stop: 04/16/18 15:22 Potassium Chloride/Dextrose/Sod Cl (Potassium Chl 20 Meq In D5-1/2ns) 1,000 mls @ 125 mls/hr IV .Q8H [facility]ESUS Lactobacillus Acidophilus (Bacid Acidophilus) 1 cap PO BID [facility]ESUS Last Admin: 04/16/18 09:45 Dose: 1 cap Lorazepam (Ativan) 1 mg IVP Q4H PRN PRN Reason: Anxiety Last Admin: 04/16/18 11:07 Dose: 1 mg Multivitamins (Hexavitamin) 1 tab PO DAILY [facility]ESUS Last Admin: 04/16/18 09:45 Dose: 1 tab Oseltamivir Phosphate (Tamiflu Cap) 75 mg PO BID JESUS; Protocol Stop: 04/19/18 18:57 Last Admin: 04/16/18 09:45 Dose: 75 mg Pantoprazole Sodium (Protonix Inj) 40 mg IVP DAILY [facility]US Last Admin: 04/16/18 09:45 Dose: 40 mg Sennosides (Senokot Tab) 8.6 mg PO BID [facility] Last Admin: 04/16/18 09:45 Dose: 8.6 mg Thiamine HCl (Vitamin B1 Tab) 100 mg PO DAILY [facility] Last Admin: 04/16/18 09:45 Dose: 100 mg - Labs Labs: 04/16/18 05:42 04/16/18 05:42 PT 13.0 SECONDS (9.7-12.2) H 04/15/18 16:25 INR 1.2 04/15/18 16:25 APTT 35 SECONDS (21-34) H 04/15/18 16:25
--- NOTE | 2018-04-16 13:25 | CP.PCM.PN ---
Subjective - Date & Time of Evaluation Date of Evaluation: 04/16/18 Time of Evaluation: 13:15 - Subjective Subjective: Hospitalist Progress Note Patient was seen and examined at 1:15 PM 04/16/18 43 year old male who was admitted on 04/13/18 for evaluation of RLQ abdominal pain with subjective fevers/chills and complaints of nausea and constipation. He was found to have a RML and RLL Pneumonia. He had bedside Thoracentesis on 04/15/18 and roughly 1 liter of purulent material was collected suspicious for empyema. Cardiothoracic Surgery was consulted for placement of Chest Tube however on evening 04/15/18 patient started to have DTs and in light of the already concerning respiratory status, he was intubated. Please see Assessment and Plans below for further details. Upon ROS: NOT possible as he is intubated and on vent General:intubated and on vent HEENT: NCA, Pupils are pinpoint/equal/reactive to light, NO lymphadenopathy, NO thyromegaly Cardio: NS1 and NS2, NO M/R/G Resp: Course breath sounds diffusely GI: BSx4, Soft, Central Obesity Ext: NO edema, Capillary Refill is 2 seconds, Pulses are strong and equal Neuro: NOT possible Assessments: 1). Sepsis Secondary to Right Middle and Lower Lobe Pneumonia and Suspected Empyema As seen on CT Chest Suspect possible aspiration due to the history of alcohol use (see below) Azithromycin and Rocephin were discontinued on 04/15/18 Clindamycin 600 mg IV Q8H (04/15/18) Vancomycin 1.25 gm IV Q12H (04/15/18) Zosyn 3.375 gm IV Q6H (04/15/18) Tamiflu 75 mg PO 2x/day (04/14/18) Blood Culture is negative to date CT Chest 04/15/18: extensive consolidation throughout the right hemithorax with relative sparing of the right lung apex, small loculated effusion measures 2.1 cm in maximum depth ID Dr. Spring Cardiothoracic Surgery Dr. Meza: NO surgical intervention at this time. May need Chest Tube placement should effusion on right reaccumulate 2). Respiratory Distress Patient was intubated and placed on vent on evening 04/15/18 after he started to have DTs Currently on Versed 3). Alcohol Withdrawl Versed Ativan 1 mg IV Q4H PRN 4). Bilateral Perinephric Stranding As seen on CT Abdomen/Pelvis On exam 04/14/18 and 04/15/18 there was NO CVA tenderness UA shows NEGATIVE Nitrate, Ketones, and LE Doubt that this is Pyelonephritis as Urine Culture is negative 5). Alcohol Abuse Patient revealed 04/14/18 that he drank shots and multiple beers twice a week but told overnight team at time of admission that he did this 5x per week. Last drink was this past Friday04/10/18 as per patient Ativan 1 mg IV Q4H PRN Withdrawl 6). Hyponatremia Likely SIADH TSH and T4 are normal Morning Cortisol normal Triglycerides normal Urine Osm was high Urine Na was 35 7). Tachycardia Could this be secondary to the ongoing fever secondary to the pneumonia? EKG shows Sinus Tachycardia Tylenol 650 mg OGT Q4H PRN Fever 8). Elevated LFTs and Hepatic Parenchymal Disease (as seen CT Abdomen) Likely secondary to suspected alcohol abuse Hepatitis Panel negative HIV negative UDS negative 9). Hypokalemia ICU Team repleted 10). Hypomagnesemia Repleted with IV Magnesium Sulfate 04/14/18 11). Constipation As seen on Obstruction Series Senokot Colace 100 mg PO 3x/day Had bowel movement 04/15/18 12). Prophylaxis DVT risk score of 2 based upon Age and diagnosis of Sepsis: Heparin 5,000 Units SC Q8H and Bilateral SCDs As patient was intubated 04/15/18, Protonix 40 mg IV 1x/day Jevity via OGT started at 20 ml/hr with goal of 45 ml/hr Lactobacillus PO 2x/day Mary was at bedside and he she was updated on patient's recent developements and status with the help of ICU residen Dr. Severino Nguyen D.O. Objective - Vital Signs/Intake and Output Vital Signs (last 24 hours): Temp Pulse Resp BP Pulse Ox 99.2 F 100 H 42 H 97/61 L 97 04/16/18 08:00 04/16/18 10:00 04/16/18 10:00 04/16/18 09:37 04/16/18 10:00 Intake and Output: 04/16/18 04/16/18 06:59 18:59 Intake Total 2546 449 Output Total 1000 350 Balance 1546 99 - Medications Medications: Current Medications Acetylcysteine (Acetylcysteine 20%) 4 ml INH RQ6 [facility] Last Admin: 04/16/18 08:07 Dose: 4 ml Albuterol/Ipratropium (Duoneb 3 Mg/0.5 Mg (3 Ml) Ud) 3 ml INH RQ6 [facility] Last Admin: 04/16/18 08:07 Dose: 3 ml Docusate Sodium (Colace) 100 mg PO TID [facility] Last Admin: 04/16/18 09:45 Dose: 100 mg Enoxaparin Sodium (Lovenox) 40 mg SC DAILY [facility] Last Admin: 04/16/18 09:44 Dose: 40 mg Folic Acid (Folic Acid) 1 mg PO DAILY [facility] Last Admin: 04/16/18 09:45 Dose: 1 mg Piperacillin Sod/Tazobactam Sod (Zosyn 3.375 Gm Iv Premix) 3.375 gm in 50 mls @ 100 mls/hr IVPB Q6H [facility]; Protocol Last Admin: 04/16/18 11:21 Dose: 100 mls/hr Vancomycin HCl 1,250 mg/ (Sodium Chloride) 250 mls @ 125 mls/hr IVPB Q12H [facility]; Protocol Last Admin: 04/16/18 13:14 Dose: 125 mls/hr Clindamycin Phosphate 600 mg/ (Sodium Chloride) 104 mls @ 100 mls/hr IV Q8H [facility]; Protocol Last Admin: 04/16/18 09:43 Dose: 100 mls/hr Propofol (Diprivan) 1,000 mg in 100 mls @ 2.79 mls/hr IV .Q24H PRN; Protocol PRN Reason: Agitation Last Admin: 04/16/18 03:26 Dose: 25 mcg/kg/min, 13.95 mls/hr Midazolam HCl 100 mg/ Sodium (Chloride) 100 mls @ 1.86 mls/hr IV .Q24H [facility]; Protocol Last Titration: 04/16/18 07:00 Dose: 0.06 mg/kg/hr, 6 mls/hr Potassium Phosphate 30 mmole/ (Sodium Chloride) 260 mls @ 63 mls/hr IV ONCE ONE Stop: 04/16/18 15:22 Last Admin: 04/16/18 13:07 Dose: 63 mls/hr Potassium Chloride/Dextrose/Sod Cl (Potassium Chl 20 Meq In D5-1/2ns) 1,000 mls @ 125 mls/hr IV .Q8H [facility] Lactobacillus Acidophilus (Bacid Acidophilus) 1 cap PO BID [facility] Last Admin: 04/16/18 09:45 Dose: 1 cap Lorazepam (Ativan) 1 mg IVP Q4H PRN PRN Reason: Anxiety Last Admin: 04/16/18 11:07 Dose: 1 mg Multivitamins (Hexavitamin) 1 tab PO DAILY [facility] Last Admin: 04/16/18 09:45 Dose: 1 tab Oseltamivir Phosphate (Tamiflu Cap) 75 mg PO BID [facility]; Protocol Stop: 04/19/18 18:57 Last Admin: 04/16/18 09:45 Dose: 75 mg Pantoprazole Sodium (Protonix Inj) 40 mg IVP DAILY [facility] Last Admin: 04/16/18 09:45 Dose: 40 mg Sennosides (Senokot Tab) 8.6 mg PO BID [facility] Last Admin: 04/16/18 09:45 Dose: 8.6 mg Thiamine HCl (Vitamin B1 Tab) 100 mg PO DAILY [facility] Last Admin: 04/16/18 09:45 Dose: 100 mg - Labs Labs: 04/16/18 05:42 04/16/18 05:42 PT 13.0 SECONDS (9.7-12.2) H 04/15/18 16:25 INR 1.2 04/15/18 16:25 APTT 35 SECONDS (21-34) H 04/15/18 16:25
[2018-04-16] MEDS ORDERED: Acetaminophen 650mg/20.3ml solution UD PO PRN (13:50)
[2018-04-16] MEDS: Midazolam 50 mg/10 ml 100 MG in Sodium Chloride 0.9% 80 ML IV SCH ×2 (15:31→20:15)
[2018-04-16] MEDS: Potassium Ch 20mEq in D5-1/2NS 1,000 ML IV SCH ×2 (15:38→19:42)
[2018-04-16] MEDS: Dexmedetomidine Hydrochloride 200 MCG in Sodium Chloride 0.9% 48 ML IV PRN ×3 (15:39→17:54)
[2018-04-16 18:35] LABS: BASO # 0.2 K/uL (0.0-0.2); BASO % 1.3 % (0.0-2.0); EOS # 0.1 K/uL (0.0-0.7); EOS % 0.7 % (0.0-4.0); HEMOGLOBIN 11.5 g/dL (12.0-18.0); LYMPH # 0.6 K/uL (1.0-4.3); LYMPH % 3.9 % (20.0-40.0); MEAN CORPUSCULAR HGB CONC 32.6 g/dL (33.0-37.0); MEAN PLATELET VOLUME 9.6 fL (7.2-11.7); MONO # 0.4 K/uL (0.0-0.8); MONO % 2.7 % (0.0-10.0); NEUT # 13.7 K/uL (1.8-7.0); NEUT % 91.4 % (50.0-75.0); NRBC % 0.1 % (0.0-2.0); PLATELET COUNT 173 K/uL (130-400); RBC 3.95 Mil/uL (4.40-5.90); RED CELL DISTRIBUTION WIDTH 14.2 % (11.5-14.5)
[2018-04-16 18:50] LABS: ALB/GLOB RATIO 0.9 (1.0-2.1); ALBUMIN 2.6 g/dL (3.5-5.0); ALT/SGPT 138 U/L (21-72); AST/SGOT 249 U/L (17-59); BLOOD UREA NITROGEN 12 mg/dL (9-20); CALCIUM 7.4 mg/dl (8.6-10.4); GFR NON-AFRICAN AMERICAN > 60
[2018-04-16 19:34] LABS: BANDS 19 % (0-2); LYMPHOCYTE 3 % (20-40); MONOCYTE 5 % (0-10); NEUTROPHIL 73 % (50-75); NUCLEATED RED BLOOD CELL 1 % (0-0); PLATELET ESTIMATE NORMAL (NORMAL); TOTAL CELLS COUNTED 100
[2018-04-16 19:39] LABS: HYPOCHROMIC SLIGHT; POLYCHROMIC SLIGHT
[2018-04-16] MEDS: Dextrose 5%/0.45% NS 1,000 ML IV SCH (19:45)
[2018-04-16] MEDS ORDERED: Midazolam 50 mg/10 ml 100 MG in Dextrose 5% In Water 80 ML IV SCH (20:15)
[2018-04-16] MEDS: Meropenem 1 GM in Sodium Chloride 0.9% 100 ML IVPB SCH (21:26)
[2018-04-16] MEDS ORDERED: Piperacill/Tazo 3.375gm in Dex 3.375 GM/50 ML BAG IVPB SCH (23:00)
[2018-04-17] MEDS: Albuterol-Ipratrop 3 mg / 0.5 (3 ml) UD INH SCH ×4 (01:42→19:50)
[2018-04-17] MEDS: Dexmedetomidine Hydrochloride 200 MCG in Sodium Chloride 0.9% 48 ML IV PRN ×2 (05:00→16:10)
[2018-04-17] MEDS: Propofol 10 mg/ml 1,000 MG/100 ML VIAL IV PRN ×5 (05:00→22:35)
[2018-04-17 05:21] LABS: BASO % 0.3 % (0.0-2.0); EOS # 0.1 K/uL (0.0-0.7); EOS % 0.5 % (0.0-4.0); HEMOGLOBIN 11.9 g/dL (12.0-18.0); LYMPH # 0.8 K/uL (1.0-4.3); LYMPH % 4.7 % (20.0-40.0); MEAN CELL VOLUME 89.5 fL (80.0-94.0); MEAN CORPUSCULAR HEMOGLOBIN 28.8 pg (27.0-31.0); MEAN CORPUSCULAR HGB CONC 32.1 g/dL (33.0-37.0); MEAN PLATELET VOLUME 9.6 fL (7.2-11.7); MONO # 0.9 K/uL (0.0-0.8); MONO % 5.3 % (0.0-10.0); NEUT % 89.2 % (50.0-75.0); NRBC % 0.1 % (0.0-2.0); PLATELET COUNT 182 K/uL (130-400); RBC 4.13 Mil/uL (4.40-5.90); RED CELL DISTRIBUTION WIDTH 14.4 % (11.5-14.5); WHITE BLOOD COUNT 16.9 K/uL (4.8-10.8)
[2018-04-17] MEDS: Meropenem 1 GM in Sodium Chloride 0.9% 100 ML IVPB SCH ×3 (05:25→21:00)
[2018-04-17 05:57] LABS: ALB/GLOB RATIO 0.8 (1.0-2.1); ALBUMIN 2.5 g/dL (3.5-5.0); ALT/SGPT 129 U/L (21-72); AST/SGOT 176 U/L (17-59); BLOOD UREA NITROGEN 11 mg/dL (9-20); CALCIUM 7.4 mg/dl (8.6-10.4); GFR NON-AFRICAN AMERICAN > 60
[2018-04-17 06:11] LABS: ABG ALLEN TEST POS; ARTERIAL BLOOD GAS HCO3 27.3 mmol/L (21-28); ARTERIAL BLOOD GAS O2 SAT 95.8 % (95-98); ARTERIAL BLOOD GAS PCO2 45 mm/Hg (35-45); ARTERIAL BLOOD GAS PH 7.41 (7.35-7.45); ARTERIAL BLOOD GAS PO2 64 mm/Hg (80-100); ARTERIAL BLOOD GAS TCO2 29.9 mmol/L (22-28)
--- NOTE | 2018-04-17 08:06 | RAD ---
Date of service: 04/17/2018 HISTORY: intubated COMPARISON: Portable chest 04/16/2018. FINDINGS: LUNGS: Endotracheal and nasogastric tubes are stable in position. Increased infiltrate atelectasis seen at the mid inferior right lung zone encroaching the right apex now. Patchy perihilar density is questioned in the interval. Linear atelectasis identified at the medial left base. PLEURA: Increased right pleural effusion is suspected appearing moderate in the interval. No definite left pleural effusion. No pneumothorax bilaterally. CARDIOVASCULAR: No aortic atherosclerotic calcification present. Stable cardiac size. No pulmonary vascular congestion. OSSEOUS STRUCTURES: No significant abnormalities. VISUALIZED UPPER ABDOMEN: Normal. OTHER FINDINGS: None. IMPRESSION: Increased airspace disease and pleural effusion as discussed above. Patchy left perihilar infiltrate is questioned developing. Stable prominent cardiac silhouette without pulmonary vascular congestion appreciable. No left pleural effusion. Linear atelectasis seen at the medial left base.
[2018-04-17] MEDS ORDERED: Iodixanol 320 MG/ML 100 ML BOTTLE IV ONE (08:58)
--- NOTE | 2018-04-17 09:02 | CP.PCM.PN ---
Subjective - Date & Time of Evaluation Date of Evaluation: 04/17/18 Time of Evaluation: 08:57 - Subjective Subjective: Surgery Note for Dr. Meza 43M seen and evaluated at bedside this morning. Patient continues to intubated and sedated. Fevers w/ tmax 101.4. ROS unobtainable secondary to mental status. Objective - Vital Signs/Intake and Output Vital Signs (last 24 hours): Temp Pulse Resp BP Pulse Ox 101.4 F H 93 H 36 H 107/65 95 04/17/18 08:00 04/17/18 08:00 04/17/18 08:00 04/17/18 07:51 04/17/18 08:00 Intake and Output: 04/17/18 04/17/18 06:59 18:59 Intake Total 2159.4 296.2 Output Total 600 1150 Balance 1559.4 -853.8 - Medications Medications: Current Medications Acetaminophen (Tylenol 650mg/20.3ml Solution Ud) 650 mg PO Q4H PRN Last Admin: 04/16/18 21:10 Dose: 650 mg Albuterol/Ipratropium (Duoneb 3 Mg/0.5 Mg (3 Ml) Ud) 3 ml INH RQ6 [facility] Last Admin: 04/17/18 08:09 Dose: 3 ml Docusate Sodium (Colace) 100 mg PO TID [facility] Last Admin: 04/16/18 17:52 Dose: 100 mg Enoxaparin Sodium (Lovenox) 40 mg SC DAILY [facility] Last Admin: 04/16/18 09:44 Dose: 40 mg Folic Acid (Folic Acid) 1 mg PO DAILY [facility] Last Admin: 04/16/18 09:45 Dose: 1 mg Vancomycin HCl 1,250 mg/ (Sodium Chloride) 250 mls @ 125 mls/hr IVPB Q12H [facility]; Protocol Last Admin: 04/17/18 02:00 Dose: 125 mls/hr Propofol (Diprivan) 1,000 mg in 100 mls @ 2.79 mls/hr IV .Q24H PRN; Protocol PRN Reason: Agitation Last Admin: 04/17/18 05:00 Dose: 25 mcg/kg/min, 13.95 mls/hr Dexmedetomidine HCl 200 mcg/ (Sodium Chloride) 50 mls @ 4.65 mls/hr IV TITR PRN; Protocol PRN Reason: Agitation Last Admin: 04/17/18 05:00 Dose: 0.2 mcg/kg/hr, 4.65 mls/hr Dextrose/Sodium Chloride (Dextrose 5%/0.45% Ns 1000 Ml) 1,000 mls @ 75 mls/hr IV .[id number] [facility] Last Admin: 04/16/18 19:45 Dose: 75 mls/hr Midazolam HCl 100 mg/ Sodium (Chloride) 100 mls @ 1.86 mls/hr IV .Q24H [facility]; Protocol Last Admin: 04/16/18 20:15 Dose: 0.06 mg/kg/hr, 6 mls/hr Meropenem 1 gm/ Sodium (Chloride) 100 mls @ 100 mls/hr IVPB Q8H [facility]; Protocol Last Admin: 04/17/18 05:25 Dose: 100 mls/hr Clindamycin Phosphate 900 mg/ (Sodium Chloride) 106 mls @ 100 mls/hr IV Q8H [facility]; Protocol Last Admin: 04/17/18 07:55 Dose: 100 mls/hr Lactobacillus Acidophilus (Bacid Acidophilus) 1 cap PO BID [facility] Last Admin: 04/16/18 17:52 Dose: 1 cap Lorazepam (Ativan) 1 mg IVP Q4H PRN PRN Reason: Anxiety Last Admin: 04/16/18 15:03 Dose: 1 mg Multivitamins (Hexavitamin) 1 tab PO DAILY [facility] Last Admin: 04/16/18 09:45 Dose: 1 tab Oseltamivir Phosphate (Tamiflu Cap) 75 mg PO BID [facility]; Protocol Stop: 04/19/18 18:57 Last Admin: 04/16/18 17:51 Dose: 75 mg Pantoprazole Sodium (Protonix Inj) 40 mg IVP DAILY [facility] Last Admin: 04/16/18 09:45 Dose: 40 mg Sennosides (Senokot Tab) 8.6 mg PO BID [facility] Last Admin: 04/16/18 17:52 Dose: 8.6 mg Thiamine HCl (Vitamin B1 Tab) 100 mg PO DAILY [facility] Last Admin: 04/16/18 09:45 Dose: 100 mg - Labs Labs: 04/17/18 05:15 04/17/18 05:15 PT 13.0 SECONDS (9.7-12.2) H 04/15/18 16:25 INR 1.2 04/15/18 16:25 APTT 35 SECONDS (21-34) H 04/15/18 16:25 - Constitutional Appears: Other (intubated, sedated) - Head Exam Head Exam: ATRAUMATIC, NORMAL INSPECTION, NORMOCEPHALIC - ENT Exam ENT Exam: Mucous Membranes Dry Assessment and Plan - Assessment and Plan (Free Text) Assessment: 43M w/ empyema, currently intubated and sedated 2/2 alcohol withdrawal Plan: Continue to monitor respiratory status F/u CXR - worsening opacity on the R and developing on the L Possible VATS once medically stable D/w Dr. Susana Bone PGY1
[2018-04-17 09:20] LABS: BANDS 9 % (0-2); EOSINOPHIL 1 % (0-4); LYMPHOCYTE 5 % (20-40); METAMYELOCYTE 1 % (0-0); MONOCYTE 6 % (0-10); MYELOCYTE 1 % (0-0); NEUTROPHIL 77 % (50-75); TOTAL CELLS COUNTED 100
[2018-04-17 09:21] LABS: HYPOCHROMIC SLIGHT; PLATELET ESTIMATE NORMAL (NORMAL); POLYCHROMIC SLIGHT
[2018-04-17 09:22] LABS: TARGET CELLS SLIGHT
[2018-04-17] MEDS: Enoxaparin 40 mg Syringe SC SCH (09:39)
[2018-04-17] MEDS: Lactobacillus Acidophilus 500 MU Cap PO SCH ×2 (09:39→18:17)
[2018-04-17] MEDS: Multiple Vitamins Tab PO SCH (09:40)
[2018-04-17] MEDS: Dextrose 5%/0.45% NS 1,000 ML IV SCH ×2 (09:41→22:00)
[2018-04-17] MEDS ORDERED: Pneumococcal 23-Valent Vaccine SC ONE (10:00)
[2018-04-17] MEDS ORDERED: Influenza Vaccine 60 mcg/0.5 mL SYR (4YR UP) IM ONE (10:00)
--- NOTE | 2018-04-17 10:37 | CP.CCUPN ---
<Morteza Altman - Last Filed: 04/17/18 12:57> CCU Objective - Vital Signs / Intake & Output Vital Signs (Last 4 hours): Vital Signs Pulse Resp BP Pulse Ox 04/17/18 12:00 75 31 H 97 04/17/18 11:38 76 24 101/64 96 04/17/18 11:31 101/63 04/17/18 11:29 77 32 H 101/63 96 04/17/18 11:00 78 30 H 95 04/17/18 10:38 78 24 109/73 96 04/17/18 10:00 81 30 H 96 04/17/18 09:38 83 28 H 109/68 96 04/17/18 09:00 88 29 H 96 Intake and Output (Last 8hrs): Intake & Output 04/16/18 04/17/18 04/17/18 22:59 06:59 14:59 Intake Total 1537.8 1482.6 1239.8 Output Total 369 512 1818 Balance 912.8 1082.6 -635.2 Intake: IV 260 150 245 Intake, IV Amount 1117.8 1172.6 914.8 Left Antecubital 48 48 36 Left Forearm 775 975 700 Left Hand 51.4 37.6 39.2 Right Antecubital 117.4 112 139.6 Right Forearm 126 Tube Feeding 160 160 80 Output: Urine 397 413 2385 Urethral (Roman) [phone] Other: # Bowel Movements 0 0 0 - Medications Active Medications: Active Medications Generic Name Dose Route Start Last Admin Trade Name Freq PRN Reason Stop Dose Admin Acetaminophen 650 mg 04/16/18 13:50 04/16/18 21:10 Tylenol 650mg/20.3ml Solution Ud PO 650 mg Q4H PRN Administration Albuterol/Ipratropium 3 ml 04/15/18 08:00 04/17/18 08:09 Duoneb 3 Mg/0.5 Mg (3 Ml) Ud INH 3 ml RQ6 JESUS Administration Docusate Sodium 100 mg 04/14/18 18:30 04/17/18 09:39 Colace PO 100 mg TID JESUS Administration Enoxaparin Sodium 40 mg 04/14/18 10:00 04/17/18 09:39 Lovenox SC 40 mg DAILY JESUS Administration Folic Acid 1 mg 04/14/18 10:00 04/17/18 09:40 Folic Acid PO 1 mg DAILY JESUS Administration Furosemide 40 mg 04/17/18 11:00 04/17/18 11:31 Lasix IVP 40 mg Q12H JESUS Administration Vancomycin HCl 1,250 mg/ 250 mls @ 125 mls/hr 04/16/18 01:30 04/17/18 02:00 Sodium Chloride IVPB 125 mls/hr Q12H JESUS Administration Protocol Propofol 1,000 mg in 100 mls @ 2.79 mls/hr 04/15/18 21:20 04/17/18 10:30 Diprivan IV 60 mcg/kg/min .Q24H PRN 33.48 mls/hr Agitation Titration Protocol 5 MCG/KG/MIN Dextrose/Sodium Chloride 1,000 mls @ 75 mls/hr 04/16/18 19:30 04/17/18 09:41 Dextrose 5%/0.45% Ns 1000 Ml IV 75 mls/hr .[id number] JESUS Administration Midazolam HCl 100 mg/ Sodium 100 mls @ 1.86 mls/hr 04/16/18 20:15 04/17/18 10:54 Chloride IV 0.06 mg/kg/hr .Q24H JESUS 6 mls/hr Administration Protocol 0.02 MG/KG/HR Meropenem 1 gm/ Sodium 100 mls @ 100 mls/hr 04/16/18 21:00 04/17/18 12:25 Chloride IVPB 100 mls/hr Q8H JESUS Administration Protocol Clindamycin Phosphate 900 mg/ 106 mls @ 100 mls/hr 04/16/18 23:30 04/17/18 07:55 Sodium Chloride IV 100 mls/hr Q8H JESUS Administration Protocol Potassium Chloride 20 meq in 100 mls @ 50 mls/hr 04/17/18 12:30 04/17/18 12:26 Potassium Chloride 20 Meq/100 Ml IVPB 04/17/18 14:29 50 mls/hr Q1H JESUS Administration Lactobacillus Acidophilus 1 cap 04/14/18 18:45 04/17/18 09:39 Bacid Acidophilus PO 1 cap BID JESUS Administration Multivitamins 1 tab 04/14/18 10:00 04/17/18 09:40 Hexavitamin PO 1 tab DAILY JESUS Administration Oseltamivir Phosphate 75 mg 04/14/18 19:00 04/17/18 09:39 Tamiflu Cap PO 04/19/18 18:57 75 mg BID JESUS Administration Protocol Pantoprazole Sodium 40 mg 04/14/18 10:00 04/17/18 09:39 Protonix Inj IVP 40 mg DAILY JESUS Administration Sennosides 8.6 mg 04/14/18 00:15 04/17/18 09:39 Senokot Tab PO 8.6 mg BID JESUS Administration Thiamine HCl 100 mg 04/14/18 10:00 04/17/18 09:39 Vitamin B1 Tab PO 100 mg DAILY JESUS Administration - Patient Studies Lab Studies: Microbiology Studies 04/17/18 01:07 Gram Stain - Final Trachasp 04/16/18 05:42 Urine Culture - Final Urine,Catheterized No Growth (<1,000 CFU/ML) 04/13/18 21:43 Blood Culture - Preliminary Blood NO GROWTH AFTER 3 DAYS 04/13/18 21:00 Blood Culture - Preliminary Blood NO GROWTH AFTER 3 DAYS 04/15/18 13:49 Gram Stain - Final Thoracic Fluid Body Fluid Culture - Preliminary NO GROWTH AFTER 24 HOURS Lab Studies 04/17/18 04/17/18 04/17/18 Range/Units 12:00 05:40 05:15 WBC (4.8-10.8) K/uL RBC (4.40-5.90) Mil/uL Hgb (12.0-18.0) g/dL Hct (35.0-51.0) % MCV (80.0-94.0) fL MCH (27.0-31.0) pg MCHC (33.0-37.0) g/dL RDW (11.5-14.5) % Plt Count (130-400) K/uL MPV (7.2-11.7) fL Neut % (Auto) (50.0-75.0) % Lymph % (Auto) (20.0-40.0) % [place] % (Auto) (0.0-10.0) % Eos % (Auto) (0.0-4.0) % Baso % (Auto) (0.0-2.0) % Neut # (Auto) (1.8-7.0) K/uL Lymph # (Auto) (1.0-4.3) K/uL [place] # (Auto) (0.0-0.8) K/uL Eos # (Auto) (0.0-0.7) K/uL Baso # (Auto) (0.0-0.2) K/uL Neutrophils % (Manual) (50-75) % Band Neutrophils % (0-2) % Lymphocytes % (Manual) (20-40) % Monocytes % (Manual) (0-10) % Eosinophils % (Manual) (0-4) % Metamyelocytes % (0-0) % Myelocytes % (0-0) % Nucleated RBC % (0-0) % Platelet Estimate (NORMAL) Polychromasia Hypochromasia (manual) Target Cells Puncture Site R rad pCO2 45 (35-45) mm/Hg pO2 64 L (80-100) mm/Hg HCO3 27.3 (21-28) mmol/L ABG pH 7.41 (7.35-7.45) ABG Total CO2 29.9 H (22-28) mmol/L ABG O2 Saturation 95.8 (95-98) % ABG Base Excess 3.2 H (-2.0-3.0) mmol/L [place] Test Pos ABG Potassium 2.8 L (3.6-5.2) mmol/L A-a O2 Difference 308.0 mm/Hg Respiratory Index 4.8 Glucose 87 (75-110) mg/dl Lactate 1.0 (0.7-2.1) mmol/L Vent Mode Prvc Mechanical Rate 14 FiO2 60.0 % Tidal Volume 400 PEEP 8 Sodium 143.0 140 (132-148) mmol/L Potassium 2.8 L (3.6-5.2) mmol/L Chloride 110.0 H 105 (98-107) mmol/L Carbon Dioxide 28 (22-30) mmol/L Anion Gap 10 (10-20) BUN 11 (9-20) mg/dL Creatinine 0.7 L (0.8-1.5) mg/dL Est GFR ( Amer) > 60 Est GFR (Non-Af Amer) > 60 POC Glucose (mg/dL) 117 H (65-110) mg/dL Random Glucose 103 (75-110) mg/dL Calcium 7.4 L (8.6-10.4) mg/dl Phosphorus 3.9 (2.5-4.5) mg/dL Magnesium 2.1 (1.6-2.3) mg/dL Total Bilirubin 1.2 (0.2-1.3) mg/dL AST 176 H D (17-59) U/L ALT 129 H (21-72) U/L Alkaline Phosphatase 212 H D (38-126) U/L Total Protein 5.6 L (6.3-8.3) g/dL Albumin 2.5 L (3.5-5.0) g/dL Globulin 3.1 (2.2-3.9) gm/dL Albumin/Globulin Ratio 0.8 L (1.0-2.1) Arterial Blood Potassium 2.8 L (3.6-5.2) mmol/L 04/17/18 04/16/18 04/16/18 Range/Units 05:15 23:59 18:29 WBC 16.9 H (4.8-10.8) K/uL RBC 4.13 L (4.40-5.90) Mil/uL Hgb 11.9 L (12.0-18.0) g/dL Hct 37.0 (35.0-51.0) % MCV 89.5 (80.0-94.0) fL MCH 28.8 (27.0-31.0) pg MCHC 32.1 L (33.0-37.0) g/dL RDW 14.4 (11.5-14.5) % Plt Count 182 (130-400) K/uL MPV 9.6 (7.2-11.7) fL Neut % (Auto) 89.2 H (50.0-75.0) % Lymph % (Auto) 4.7 L (20.0-40.0) % [place] % (Auto) 5.3 (0.0-10.0) % Eos % (Auto) 0.5 (0.0-4.0) % Baso % (Auto) 0.3 (0.0-2.0) % Neut # (Auto) 15.0 H (1.8-7.0) K/uL Lymph # (Auto) 0.8 L (1.0-4.3) K/uL [place] # (Auto) 0.9 H (0.0-0.8) K/uL Eos # (Auto) 0.1 (0.0-0.7) K/uL Baso # (Auto) 0.0 (0.0-0.2) K/uL Neutrophils % (Manual) 77 H (50-75) % Band Neutrophils % 9 H (0-2) % Lymphocytes % (Manual) 5 L (20-40) % Monocytes % (Manual) 6 (0-10) % Eosinophils % (Manual) 1 (0-4) % Metamyelocytes % 1 H (0-0) % Myelocytes % 1 H (0-0) % Nucleated RBC % (0-0) % Platelet Estimate Normal (NORMAL) Polychromasia Slight Hypochromasia (manual) Slight Target Cells Slight Puncture Site pCO2 (35-45) mm/Hg pO2 (80-100) mm/Hg HCO3 (21-28) mmol/L ABG pH (7.35-7.45) ABG Total CO2 (22-28) mmol/L ABG O2 Saturation (95-98) % ABG Base Excess (-2.0-3.0) mmol/L [place] Test ABG Potassium (3.6-5.2) mmol/L A-a O2 Difference mm/Hg Respiratory Index Glucose (75-110) mg/dl Lactate (0.7-2.1) mmol/L Vent Mode Mechanical Rate FiO2 % Tidal Volume PEEP Sodium 140 (132-148) mmol/L Potassium 5.3 H (3.6-5.2) mmol/L Chloride 107 (98-107) mmol/L Carbon Dioxide 26 (22-30) mmol/L Anion Gap 12 (10-20) BUN 12 (9-20) mg/dL Creatinine 0.8 (0.8-1.5) mg/dL Est GFR ( Amer) > 60 Est GFR (Non-Af Amer) > 60 POC Glucose (mg/dL) 91 (65-110) mg/dL Random Glucose 86 (75-110) mg/dL Calcium 7.4 L (8.6-10.4) mg/dl Phosphorus (2.5-4.5) mg/dL Magnesium (1.6-2.3) mg/dL Total Bilirubin 1.7 H (0.2-1.3) mg/dL AST 249 H D (17-59) U/L ALT 138 H D (21-72) U/L Alkaline Phosphatase 170 H (38-126) U/L Total Protein 5.7 L (6.3-8.3) g/dL Albumin 2.6 L (3.5-5.0) g/dL Globulin 3.0 (2.2-3.9) gm/dL Albumin/Globulin Ratio 0.9 L (1.0-2.1) Arterial Blood Potassium (3.6-5.2) mmol/L 04/16/18 04/16/18 04/16/18 Range/Units 18:29 17:51 11:33 WBC 15.0 H (4.8-10.8) K/uL RBC 3.95 L (4.40-5.90) Mil/uL Hgb 11.5 L (12.0-18.0) g/dL Hct 35.1 (35.0-51.0) % MCV 89.0 (80.0-94.0) fL MCH 29.0 (27.0-31.0) pg MCHC 32.6 L (33.0-37.0) g/dL RDW 14.2 (11.5-14.5) % Plt Count 173 (130-400) K/uL MPV 9.6 (7.2-11.7) fL Neut % (Auto) 91.4 H (50.0-75.0) % Lymph % (Auto) 3.9 L (20.0-40.0) % [place] % (Auto) 2.7 (0.0-10.0) % Eos % (Auto) 0.7 (0.0-4.0) % Baso % (Auto) 1.3 (0.0-2.0) % Neut # (Auto) 13.7 H (1.8-7.0) K/uL Lymph # (Auto) 0.6 L (1.0-4.3) K/uL [place] # (Auto) 0.4 (0.0-0.8) K/uL Eos # (Auto) 0.1 (0.0-0.7) K/uL Baso # (Auto) 0.2 (0.0-0.2) K/uL Neutrophils % (Manual) 73 (50-75) % Band Neutrophils % 19 H* (0-2) % Lymphocytes % (Manual) 3 L (20-40) % Monocytes % (Manual) 5 (0-10) % Eosinophils % (Manual) (0-4) % Metamyelocytes % (0-0) % Myelocytes % (0-0) % Nucleated RBC % 1 H (0-0) % Platelet Estimate Normal (NORMAL) Polychromasia Slight Hypochromasia (manual) Slight Target Cells Puncture Site pCO2 (35-45) mm/Hg pO2 (80-100) mm/Hg HCO3 (21-28) mmol/L ABG pH (7.35-7.45) ABG Total CO2 (22-28) mmol/L ABG O2 Saturation (95-98) % ABG Base Excess (-2.0-3.0) mmol/L [place] Test ABG Potassium (3.6-5.2) mmol/L A-a O2 Difference mm/Hg Respiratory Index Glucose (75-110) mg/dl Lactate (0.7-2.1) mmol/L Vent Mode Mechanical Rate FiO2 % Tidal Volume PEEP Sodium (132-148) mmol/L Potassium (3.6-5.2) mmol/L Chloride (98-107) mmol/L Carbon Dioxide (22-30) mmol/L Anion Gap (10-20) BUN (9-20) mg/dL Creatinine (0.8-1.5) mg/dL Est GFR ( Amer) Est GFR (Non-Af Amer) POC Glucose (mg/dL) 82 78 (65-110) mg/dL Random Glucose (75-110) mg/dL Calcium (8.6-10.4) mg/dl Phosphorus (2.5-4.5) mg/dL Magnesium (1.6-2.3) mg/dL Total Bilirubin (0.2-1.3) mg/dL AST (17-59) U/L ALT (21-72) U/L Alkaline Phosphatase (38-126) U/L Total Protein (6.3-8.3) g/dL Albumin (3.5-5.0) g/dL Globulin (2.2-3.9) gm/dL Albumin/Globulin Ratio (1.0-2.1) Arterial Blood Potassium (3.6-5.2) mmol/L Laboratory Results - last 24 hr 04/16/18 04/16/18 04/16/18 11:33 17:51 18:29 WBC 15.0 H RBC 3.95 L Hgb 11.5 L Hct 35.1 MCV 89.0 MCH 29.0 MCHC 32.6 L RDW 14.2 Plt Count 173 MPV 9.6 Neut % (Auto) 91.4 H Lymph % (Auto) 3.9 L [place] % (Auto) 2.7 Eos % (Auto) 0.7 Baso % (Auto) 1.3 Neut # (Auto) 13.7 H Lymph # (Auto) 0.6 L [place] # (Auto) 0.4 Eos # (Auto) 0.1 Baso # (Auto) 0.2 Neutrophils % (Manual) 73 Band Neutrophils % 19 H* Lymphocytes % (Manual) 3 L Monocytes % (Manual) 5 Eosinophils % (Manual) Metamyelocytes % Myelocytes % Nucleated RBC % 1 H Platelet Estimate Normal Polychromasia Slight Hypochromasia (manual) Slight Target Cells Puncture Site pCO2 pO2 HCO3 ABG pH ABG Total CO2 ABG O2 Saturation ABG Base Excess [place] Test ABG Potassium A-a O2 Difference Respiratory Index Glucose Lactate Vent Mode Mechanical Rate FiO2 Tidal Volume PEEP Sodium Potassium Chloride Carbon Dioxide Anion Gap BUN Creatinine Est GFR ( Amer) Est GFR (Non-Af Amer) POC Glucose (mg/dL) 78 82 Random Glucose Calcium Phosphorus Magnesium Total Bilirubin AST ALT Alkaline Phosphatase Total Protein Albumin Globulin Albumin/Globulin Ratio Arterial Blood Potassium 04/16/18 04/16/18 04/17/18 18:29 23:59 05:15 WBC 16.9 H RBC 4.13 L Hgb 11.9 L Hct 37.0 MCV 89.5 MCH 28.8 MCHC 32.1 L RDW 14.4 Plt Count 182 MPV 9.6 Neut % (Auto) 89.2 H Lymph % (Auto) 4.7 L [place] % (Auto) 5.3 Eos % (Auto) 0.5 Baso % (Auto) 0.3 Neut # (Auto) 15.0 H Lymph # (Auto) 0.8 L [place] # (Auto) 0.9 H Eos # (Auto) 0.1 Baso # (Auto) 0.0 Neutrophils % (Manual) 77 H Band Neutrophils % 9 H Lymphocytes % (Manual) 5 L Monocytes % (Manual) 6 Eosinophils % (Manual) 1 Metamyelocytes % 1 H Myelocytes % 1 H Nucleated RBC % Platelet Estimate Normal Polychromasia Slight Hypochromasia (manual) Slight Target Cells Slight Puncture Site pCO2 pO2 HCO3 ABG pH ABG Total CO2 ABG O2 Saturation ABG Base Excess [place] Test ABG Potassium A-a O2 Difference Respiratory Index Glucose Lactate Vent Mode Mechanical Rate FiO2 Tidal Volume PEEP Sodium 140 Potassium 5.3 H Chloride 107 Carbon Dioxide 26 Anion Gap 12 BUN 12 Creatinine 0.8 Est GFR ( Amer) > 60 Est GFR (Non-Af Amer) > 60 POC Glucose (mg/dL) 91 Random Glucose 86 Calcium 7.4 L Phosphorus Magnesium Total Bilirubin 1.7 H AST 249 H D ALT 138 H D Alkaline Phosphatase 170 H Total Protein 5.7 L Albumin 2.6 L Globulin 3.0 Albumin/Globulin Ratio 0.9 L Arterial Blood Potassium 04/17/18 04/17/18 04/17/18 05:15 05:40 12:00 WBC RBC Hgb Hct MCV MCH MCHC RDW Plt Count MPV Neut % (Auto) Lymph % (Auto) [place] % (Auto) Eos % (Auto) Baso % (Auto) Neut # (Auto) Lymph # (Auto) [place] # (Auto) Eos # (Auto) Baso # (Auto) Neutrophils % (Manual) Band Neutrophils % Lymphocytes % (Manual) Monocytes % (Manual) Eosinophils % (Manual) Metamyelocytes % Myelocytes % Nucleated RBC % Platelet Estimate Polychromasia Hypochromasia (manual) Target Cells Puncture Site R rad pCO2 45 pO2 64 L HCO3 27.3 ABG pH 7.41 ABG Total CO2 29.9 H ABG O2 Saturation 95.8 ABG Base Excess 3.2 H [place] Test Pos ABG Potassium 2.8 L A-a O2 Difference 308.0 Respiratory Index 4.8 Glucose 87 Lactate 1.0 Vent Mode Prvc Mechanical Rate 14 FiO2 60.0 Tidal Volume 400 PEEP 8 Sodium 140 143.0 Potassium 2.8 L Chloride 105 110.0 H Carbon Dioxide 28 Anion Gap 10 BUN 11 Creatinine 0.7 L Est GFR ( Amer) > 60 Est GFR (Non-Af Amer) > 60 POC Glucose (mg/dL) 117 H Random Glucose 103 Calcium 7.4 L Phosphorus 3.9 Magnesium 2.1 Total Bilirubin 1.2 AST 176 H D ALT 129 H Alkaline Phosphatase 212 H D Total Protein 5.6 L Albumin 2.5 L Globulin 3.1 Albumin/Globulin Ratio 0.8 L Arterial Blood Potassium 2.8 L Radiology Impressions: Radiology Impressions Chest X-Ray 04/17/18 07:00 IMPRESSION: Increased airspace disease and pleural effusion as discussed above. Patchy left perihilar infiltrate is questioned developing. Stable prominent cardiac silhouette without pulmonary vascular congestion appreciable. No left pleural effusion. Linear atelectasis seen at the medial left base. Critical Care Progress Note - Nutrition Nutrition: Nutrition Category Date Time Status NPO Diet [DIET] Diets 04/16/18 Breakfast Active Assessment/Plan (1) Community acquired pneumonia Current Visit: Yes Status: Acute Attending/Attestation - Attestation I have personally seen and examined this patient.: Yes I have fully participated in the care of the patient.: Yes I have reviewed all pertinent clinical information: Yes Notes (Text): 04/17/18 13:39 I have seen and examined the patient. Medical records, lab studies, and imaging were reviewed by me and a management plan was formulated on multidisciplinary rounds with resident Dr. Tate. I agree with their documented assessment and plan. Patient is intubated on vent for hypoxic respiratory failure secondary to Community acquired PNA with empyema. In severe sepsis. Diuresing to remove fluid with positive fluid balance. f/u CTA to r/o PE. Critical Care Time 35 minutes. Multi-disciplinary rounds were performed with house staff, nursing, speech therapy, respiratory therapy, pharmacy and nutrition with integrated input from the primary team/attending and other consulting services. The documented time is cumulative and includes review of patient data/exams/labs/chart review and examination of the patient on rounds and throughout the day; time is exclusive of any procedures or teaching time. <Misael Tate - Last Filed: 04/17/18 16:43> CCU Subjective - Physician Review Subjective (Free Text): PGY-[address] Misty Altman service Patient seen and examined at bedside. at bedside. continues to under sedation this morning. ROS unattainable due to patient's status. 04/17/18 10:35 Critical Care Time Spent (in minutes): 35 CCU Objective - Vital Signs / Intake & Output Vital Signs (Last 4 hours): Vital Signs Temp Pulse Resp BP Pulse Ox 04/17/18 10:00 81 30 H 96 04/17/18 09:38 83 28 H 109/68 96 04/17/18 09:00 88 29 H 96 04/17/18 08:38 91 H 15 105/65 97 04/17/18 08:00 101.4 F H 93 H 36 H 95 04/17/18 07:51 95 H 37 H 107/65 94 L 04/17/18 07:39 95 H 36 H 202/179 H 45 L 04/17/18 07:00 87 35 H 95 04/17/18 06:38 86 34 H 117/77 95 Intake and Output (Last 8hrs): Intake & Output 04/16/18 04/17/18 04/17/18 22:59 06:59 14:59 Intake Total 1537.8 1482.6 765.8 Output Total 135 640 7736 Balance 912.8 1082.6 -634.2 Intake: IV 260 150 100 Intake, IV Amount 1117.8 1172.6 585.8 Left Antecubital 48 48 24 Left Forearm 775 975 450 Left Hand 51.4 37.6 39.2 Right Antecubital 117.4 112 72.6 Right Forearm 126 Tube Feeding 160 160 80 Output: Urine 917 947 3550 Urethral (Roman) [phone] Other: # Bowel Movements 0 0 0 - Physical Exam Head: Positive for: Atraumatic, Normocephalic Pupils: Positive for: PERRL Extroacular Muscles: Positive for: EOMI Conjunctiva: Positive for: Normal Neck: Positive for: Normal Range of Motion Respiratory/Chest: Positive for: Decreased Breath Sounds (right middle and lower lobes ), Rales. Negative for: Respiratory Distress, Accessory Muscle Use Cardiovascular: Positive for: Regular Rate and Rhythm, Normal S1, S2 Abdomen: Positive for: Distention, Normal Bowel Sounds. Negative for: Tenderness Upper Extremity: Positive for: Normal Inspection. Negative for: Cyanosis, Edema Lower Extremity: Positive for: Normal Inspection. Negative for: Edema Neurological: Positive for: Other (unable to assess due to pts condition ) Skin: Positive for: Warm, Dry, Normal Color Psychiatric: Positive for: Other (sedated, not awake or oriented, not respond to verbal stimuli ) - Medications Active Medications: Active Medications Generic Name Dose Route Start Last Admin Trade Name Freq PRN Reason Stop Dose Admin Acetaminophen 650 mg 04/16/18 13:50 04/16/18 21:10 Tylenol 650mg/20.3ml Solution Ud PO 650 mg Q4H PRN Administration Albuterol/Ipratropium 3 ml 04/15/18 08:00 04/17/18 08:09 Duoneb 3 Mg/0.5 Mg (3 Ml) Ud INH 3 ml RQ6 JESUS Administration Docusate Sodium 100 mg 04/14/18 18:30 04/17/18 09:39 Colace PO 100 mg TID JESUS Administration Enoxaparin Sodium 40 mg 04/14/18 10:00 04/17/18 09:39 Lovenox SC 40 mg DAILY JESUS Administration Folic Acid 1 mg 04/14/18 10:00 04/17/18 09:40 Folic Acid PO 1 mg DAILY JESUS Administration Vancomycin HCl 1,250 mg/ 250 mls @ 125 mls/hr 04/16/18 01:30 04/17/18 02:00 Sodium Chloride IVPB 125 mls/hr Q12H JESUS Administration Protocol Propofol 1,000 mg in 100 mls @ 2.79 mls/hr 04/15/18 21:20 04/17/18 09:52 Diprivan IV 40 mcg/kg/min .Q24H PRN 22.32 mls/hr Agitation Administration Protocol 5 MCG/KG/MIN Dexmedetomidine HCl 200 mcg/ 50 mls @ 4.65 mls/hr 04/16/18 15:14 04/17/18 05:00 Sodium Chloride IV 0.2 mcg/kg/hr TITR PRN 4.65 mls/hr Agitation Administration Protocol 0.2 MCG/KG/HR Dextrose/Sodium Chloride 1,000 mls @ 75 mls/hr 04/16/18 19:30 04/17/18 09:41 Dextrose 5%/0.45% Ns 1000 Ml IV 75 mls/hr .[id number] JESUS Administration Midazolam HCl 100 mg/ Sodium 100 mls @ 1.86 mls/hr 04/16/18 20:15 04/16/18 20:15 Chloride IV 0.06 mg/kg/hr .Q24H JESUS 6 mls/hr Administration Protocol 0.02 MG/KG/HR Meropenem 1 gm/ Sodium 100 mls @ 100 mls/hr 04/16/18 21:00 04/17/18 05:25 Chloride IVPB 100 mls/hr Q8H JESUS Administration Protocol Clindamycin Phosphate 900 mg/ 106 mls @ 100 mls/hr 04/16/18 23:30 04/17/18 07:55 Sodium Chloride IV 100 mls/hr Q8H JESUS Administration Protocol Lactobacillus Acidophilus 1 cap 04/14/18 18:45 04/17/18 09:39 Bacid Acidophilus PO 1 cap BID JESUS Administration Multivitamins 1 tab 04/14/18 10:00 04/17/18 09:40 Hexavitamin PO 1 tab DAILY JESUS Administration Oseltamivir Phosphate 75 mg 04/14/18 19:00 04/17/18 09:39 Tamiflu Cap PO 04/19/18 18:57 75 mg BID JESUS Administration Protocol Pantoprazole Sodium 40 mg 04/14/18 10:00 04/17/18 09:39 Protonix Inj IVP 40 mg DAILY JESUS Administration Sennosides 8.6 mg 04/14/18 00:15 04/17/18 09:39 Senokot Tab PO 8.6 mg BID JESUS Administration Thiamine HCl 100 mg 04/14/18 10:00 04/17/18 09:39 Vitamin B1 Tab PO 100 mg DAILY JESUS Administration - Patient Studies Lab Studies: Microbiology Studies 04/16/18 05:42 Urine Culture - Final Urine,Catheterized No Growth (<1,000 CFU/ML) 04/13/18 21:43 Blood Culture - Preliminary Blood NO GROWTH AFTER 3 DAYS 04/13/18 21:00 Blood Culture - Preliminary Blood NO GROWTH AFTER 3 DAYS 04/15/18 13:49 Gram Stain - Final Thoracic Fluid Body Fluid Culture - Preliminary NO GROWTH AFTER 24 HOURS Lab Studies 04/17/18 04/17/18 04/17/18 Range/Units 05:40 05:15 05:15 WBC 16.9 H (4.8-10.8) K/uL RBC 4.13 L (4.40-5.90) Mil/uL Hgb 11.9 L (12.0-18.0) g/dL Hct 37.0 (35.0-51.0) % MCV 89.5 (80.0-94.0) fL MCH 28.8 (27.0-31.0) pg MCHC 32.1 L (33.0-37.0) g/dL RDW 14.4 (11.5-14.5) % Plt Count 182 (130-400) K/uL MPV 9.6 (7.2-11.7) fL Neut % (Auto) 89.2 H (50.0-75.0) % Lymph % (Auto) 4.7 L (20.0-40.0) % [place] % (Auto) 5.3 (0.0-10.0) % Eos % (Auto) 0.5 (0.0-4.0) % Baso % (Auto) 0.3 (0.0-2.0) % Neut # (Auto) 15.0 H (1.8-7.0) K/uL Lymph # (Auto) 0.8 L (1.0-4.3) K/uL [place] # (Auto) 0.9 H (0.0-0.8) K/uL Eos # (Auto) 0.1 (0.0-0.7) K/uL Baso # (Auto) 0.0 (0.0-0.2) K/uL Neutrophils % (Manual) 77 H (50-75) % Band Neutrophils % 9 H (0-2) % Lymphocytes % (Manual) 5 L (20-40) % Monocytes % (Manual) 6 (0-10) % Eosinophils % (Manual) 1 (0-4) % Metamyelocytes % 1 H (0-0) % Myelocytes % 1 H (0-0) % Nucleated RBC % (0-0) % Platelet Estimate Normal (NORMAL) Polychromasia Slight Hypochromasia (manual) Slight Target Cells Slight Puncture Site R rad pCO2 45 (35-45) mm/Hg pO2 64 L (80-100) mm/Hg HCO3 27.3 (21-28) mmol/L ABG pH 7.41 (7.35-7.45) ABG Total CO2 29.9 H (22-28) mmol/L ABG O2 Saturation 95.8 (95-98) % ABG Base Excess 3.2 H (-2.0-3.0) mmol/L [place] Test Pos ABG Potassium 2.8 L (3.6-5.2) mmol/L A-a O2 Difference 308.0 mm/Hg Respiratory Index 4.8 Glucose 87 (75-110) mg/dl Lactate 1.0 (0.7-2.1) mmol/L Vent Mode Prvc Mechanical Rate 14 FiO2 60.0 % Tidal Volume 400 PEEP 8 Sodium 143.0 140 (132-148) mmol/L Potassium 2.8 L (3.6-5.2) mmol/L Chloride 110.0 H 105 (98-107) mmol/L Carbon Dioxide 28 (22-30) mmol/L Anion Gap 10 (10-20) BUN 11 (9-20) mg/dL Creatinine 0.7 L (0.8-1.5) mg/dL Est GFR ( Amer) > 60 Est GFR (Non-Af Amer) > 60 POC Glucose (mg/dL) (65-110) mg/dL Random Glucose 103 (75-110) mg/dL Calcium 7.4 L (8.6-10.4) mg/dl Phosphorus 3.9 (2.5-4.5) mg/dL Magnesium 2.1 (1.6-2.3) mg/dL Total Bilirubin 1.2 (0.2-1.3) mg/dL AST 176 H D (17-59) U/L ALT 129 H (21-72) U/L Alkaline Phosphatase 212 H D (38-126) U/L Total Protein 5.6 L (6.3-8.3) g/dL Albumin 2.5 L (3.5-5.0) g/dL Globulin 3.1 (2.2-3.9) gm/dL Albumin/Globulin Ratio 0.8 L (1.0-2.1) Arterial Blood Potassium 2.8 L (3.6-5.2) mmol/L 04/16/18 04/16/18 04/16/18 Range/Units 23:59 18:29 18:29 WBC 15.0 H (4.8-10.8) K/uL RBC 3.95 L (4.40-5.90) Mil/uL Hgb 11.5 L (12.0-18.0) g/dL Hct 35.1 (35.0-51.0) % MCV 89.0 (80.0-94.0) fL MCH 29.0 (27.0-31.0) pg MCHC 32.6 L (33.0-37.0) g/dL RDW 14.2 (11.5-14.5) % Plt Count 173 (130-400) K/uL MPV 9.6 (7.2-11.7) fL Neut % (Auto) 91.4 H (50.0-75.0) % Lymph % (Auto) 3.9 L (20.0-40.0) % [place] % (Auto) 2.7 (0.0-10.0) % Eos % (Auto) 0.7 (0.0-4.0) % Baso % (Auto) 1.3 (0.0-2.0) % Neut # (Auto) 13.7 H (1.8-7.0) K/uL Lymph # (Auto) 0.6 L (1.0-4.3) K/uL [place] # (Auto) 0.4 (0.0-0.8) K/uL Eos # (Auto) 0.1 (0.0-0.7) K/uL Baso # (Auto) 0.2 (0.0-0.2) K/uL Neutrophils % (Manual) 73 (50-75) % Band Neutrophils % 19 H* (0-2) % Lymphocytes % (Manual) 3 L (20-40) % Monocytes % (Manual) 5 (0-10) % Eosinophils % (Manual) (0-4) % Metamyelocytes % (0-0) % Myelocytes % (0-0) % Nucleated RBC % 1 H (0-0) % Platelet Estimate Normal (NORMAL) Polychromasia Slight Hypochromasia (manual) Slight Target Cells Puncture Site pCO2 (35-45) mm/Hg pO2 (80-100) mm/Hg HCO3 (21-28) mmol/L ABG pH (7.35-7.45) ABG Total CO2 (22-28) mmol/L ABG O2 Saturation (95-98) % ABG Base Excess (-2.0-3.0) mmol/L [place] Test ABG Potassium (3.6-5.2) mmol/L A-a O2 Difference mm/Hg Respiratory Index Glucose (75-110) mg/dl Lactate (0.7-2.1) mmol/L Vent Mode Mechanical Rate FiO2 % Tidal Volume PEEP Sodium 140 (132-148) mmol/L Potassium 5.3 H (3.6-5.2) mmol/L Chloride 107 (98-107) mmol/L Carbon Dioxide 26 (22-30) mmol/L Anion Gap 12 (10-20) BUN 12 (9-20) mg/dL Creatinine 0.8 (0.8-1.5) mg/dL Est GFR ( Amer) > 60 Est GFR (Non-Af Amer) > 60 POC Glucose (mg/dL) 91 (65-110) mg/dL Random Glucose 86 (75-110) mg/dL Calcium 7.4 L (8.6-10.4) mg/dl Phosphorus (2.5-4.5) mg/dL Magnesium (1.6-2.3) mg/dL Total Bilirubin 1.7 H (0.2-1.3) mg/dL AST 249 H D (17-59) U/L ALT 138 H D (21-72) U/L Alkaline Phosphatase 170 H (38-126) U/L Total Protein 5.7 L (6.3-8.3) g/dL Albumin 2.6 L (3.5-5.0) g/dL Globulin 3.0 (2.2-3.9) gm/dL Albumin/Globulin Ratio 0.9 L (1.0-2.1) Arterial Blood Potassium (3.6-5.2) mmol/L 04/16/18 04/16/18 Range/Units 17:51 11:33 WBC (4.8-10.8) K/uL RBC (4.40-5.90) Mil/uL Hgb (12.0-18.0) g/dL Hct (35.0-51.0) % MCV (80.0-94.0) fL MCH (27.0-31.0) pg MCHC (33.0-37.0) g/dL RDW (11.5-14.5) % Plt Count (130-400) K/uL MPV (7.2-11.7) fL Neut % (Auto) (50.0-75.0) % Lymph % (Auto) (20.0-40.0) % [place] % (Auto) (0.0-10.0) % Eos % (Auto) (0.0-4.0) % Baso % (Auto) (0.0-2.0) % Neut # (Auto) (1.8-7.0) K/uL Lymph # (Auto) (1.0-4.3) K/uL [place] # (Auto) (0.0-0.8) K/uL Eos # (Auto) (0.0-0.7) K/uL Baso # (Auto) (0.0-0.2) K/uL Neutrophils % (Manual) (50-75) % Band Neutrophils % (0-2) % Lymphocytes % (Manual) (20-40) % Monocytes % (Manual) (0-10) % Eosinophils % (Manual) (0-4) % Metamyelocytes % (0-0) % Myelocytes % (0-0) % Nucleated RBC % (0-0) % Platelet Estimate (NORMAL) Polychromasia Hypochromasia (manual) Target Cells Puncture Site pCO2 (35-45) mm/Hg pO2 (80-100) mm/Hg HCO3 (21-28) mmol/L ABG pH (7.35-7.45) ABG Total CO2 (22-28) mmol/L ABG O2 Saturation (95-98) % ABG Base Excess (-2.0-3.0) mmol/L [place] Test ABG Potassium (3.6-5.2) mmol/L A-a O2 Difference mm/Hg Respiratory Index Glucose (75-110) mg/dl Lactate (0.7-2.1) mmol/L Vent Mode Mechanical Rate FiO2 % Tidal Volume PEEP Sodium (132-148) mmol/L Potassium (3.6-5.2) mmol/L Chloride (98-107) mmol/L Carbon Dioxide (22-30) mmol/L Anion Gap (10-20) BUN (9-20) mg/dL Creatinine (0.8-1.5) mg/dL Est GFR ( Amer) Est GFR (Non-Af Amer) POC Glucose (mg/dL) 82 78 (65-110) mg/dL Random Glucose (75-110) mg/dL Calcium (8.6-10.4) mg/dl Phosphorus (2.5-4.5) mg/dL Magnesium (1.6-2.3) mg/dL Total Bilirubin (0.2-1.3) mg/dL AST (17-59) U/L ALT (21-72) U/L Alkaline Phosphatase (38-126) U/L Total Protein (6.3-8.3) g/dL Albumin (3.5-5.0) g/dL Globulin (2.2-3.9) gm/dL Albumin/Globulin Ratio (1.0-2.1) Arterial Blood Potassium (3.6-5.2) mmol/L Laboratory Results - last 24 hr 04/16/18 04/16/18 04/16/18 11:33 17:51 18:29 WBC 15.0 H RBC 3.95 L Hgb 11.5 L Hct 35.1 MCV 89.0 MCH 29.0 MCHC 32.6 L RDW 14.2 Plt Count 173 MPV 9.6 Neut % (Auto) 91.4 H Lymph % (Auto) 3.9 L [place] % (Auto) 2.7 Eos % (Auto) 0.7 Baso % (Auto) 1.3 Neut # (Auto) 13.7 H Lymph # (Auto) 0.6 L [place] # (Auto) 0.4 Eos # (Auto) 0.1 Baso # (Auto) 0.2 Neutrophils % (Manual) 73 Band Neutrophils % 19 H* Lymphocytes % (Manual) 3 L Monocytes % (Manual) 5 Eosinophils % (Manual) Metamyelocytes % Myelocytes % Nucleated RBC % 1 H Platelet Estimate Normal Polychromasia Slight Hypochromasia (manual) Slight Target Cells Puncture Site pCO2 pO2 HCO3 ABG pH ABG Total CO2 ABG O2 Saturation ABG Base Excess [place] Test ABG Potassium A-a O2 Difference Respiratory Index Glucose Lactate Vent Mode Mechanical Rate FiO2 Tidal Volume PEEP Sodium Potassium Chloride Carbon Dioxide Anion Gap BUN Creatinine Est GFR ( Amer) Est GFR (Non-Af Amer) POC Glucose (mg/dL) 78 82 Random Glucose Calcium Phosphorus Magnesium Total Bilirubin AST ALT Alkaline Phosphatase Total Protein Albumin Globulin Albumin/Globulin Ratio Arterial Blood Potassium 04/16/18 04/16/18 04/17/18 18:29 23:59 05:15 WBC 16.9 H RBC 4.13 L Hgb 11.9 L Hct 37.0 MCV 89.5 MCH 28.8 MCHC 32.1 L RDW 14.4 Plt Count 182 MPV 9.6 Neut % (Auto) 89.2 H Lymph % (Auto) 4.7 L [place] % (Auto) 5.3 Eos % (Auto) 0.5 Baso % (Auto) 0.3 Neut # (Auto) 15.0 H Lymph # (Auto) 0.8 L [place] # (Auto) 0.9 H Eos # (Auto) 0.1 Baso # (Auto) 0.0 Neutrophils % (Manual) 77 H Band Neutrophils % 9 H Lymphocytes % (Manual) 5 L Monocytes % (Manual) 6 Eosinophils % (Manual) 1 Metamyelocytes % 1 H Myelocytes % 1 H Nucleated RBC % Platelet Estimate Normal Polychromasia Slight Hypochromasia (manual) Slight Target Cells Slight Puncture Site pCO2 pO2 HCO3 ABG pH ABG Total CO2 ABG O2 Saturation ABG Base Excess [place] Test ABG Potassium A-a O2 Difference Respiratory Index Glucose Lactate Vent Mode Mechanical Rate FiO2 Tidal Volume PEEP Sodium 140 Potassium 5.3 H Chloride 107 Carbon Dioxide 26 Anion Gap 12 BUN 12 Creatinine 0.8 Est GFR ( Amer) > 60 Est GFR (Non-Af Amer) > 60 POC Glucose (mg/dL) 91 Random Glucose 86 Calcium 7.4 L Phosphorus Magnesium Total Bilirubin 1.7 H AST 249 H D ALT 138 H D Alkaline Phosphatase 170 H Total Protein 5.7 L Albumin 2.6 L Globulin 3.0 Albumin/Globulin Ratio 0.9 L Arterial Blood Potassium 04/17/18 04/17/18 05:15 05:40 WBC RBC Hgb Hct MCV MCH MCHC RDW Plt Count MPV Neut % (Auto) Lymph % (Auto) [place] % (Auto) Eos % (Auto) Baso % (Auto) Neut # (Auto) Lymph # (Auto) [place] # (Auto) Eos # (Auto) Baso # (Auto) Neutrophils % (Manual) Band Neutrophils % Lymphocytes % (Manual) Monocytes % (Manual) Eosinophils % (Manual) Metamyelocytes % Myelocytes % Nucleated RBC % Platelet Estimate Polychromasia Hypochromasia (manual) Target Cells Puncture Site R rad pCO2 45 pO2 64 L HCO3 27.3 ABG pH 7.41 ABG Total CO2 29.9 H ABG O2 Saturation 95.8 ABG Base Excess 3.2 H [place] Test Pos ABG Potassium 2.8 L A-a O2 Difference 308.0 Respiratory Index 4.8 Glucose 87 Lactate 1.0 Vent Mode Prvc Mechanical Rate 14 FiO2 60.0 Tidal Volume 400 PEEP 8 Sodium 140 143.0 Potassium 2.8 L Chloride 105 110.0 H Carbon Dioxide 28 Anion Gap 10 BUN 11 Creatinine 0.7 L Est GFR ( Amer) > 60 Est GFR (Non-Af Amer) > 60 POC Glucose (mg/dL) Random Glucose 103 Calcium 7.4 L Phosphorus 3.9 Magnesium 2.1 Total Bilirubin 1.2 AST 176 H D ALT 129 H Alkaline Phosphatase 212 H D Total Protein 5.6 L Albumin 2.5 L Globulin 3.1 Albumin/Globulin Ratio 0.8 L Arterial Blood Potassium 2.8 L Radiology Impressions: Radiology Impressions Chest X-Ray 04/17/18 07:00 IMPRESSION: Increased airspace disease and pleural effusion as discussed above. Patchy left perihilar infiltrate is questioned developing. Stable prominent cardiac silhouette without pulmonary vascular congestion appreciable. No left pleural effusion. Linear atelectasis seen at the medial left base. Review of Systems - Review of Systems Systems not reviewed;Unavailable: Intubated Critical Care Progress Note - Ventilator Checklist Head of Bed 30 Degrees: Yes PUD Prophalyxis: Yes DVT Prophylaxis: Yes Oral Care with Chlorhexidine Gluconate {CHG}: Yes - Vent Settings MODE:: PRVC TIDAL VOLUME:: 400 RESP RATE:: 14 FIO2:: 60 PEEP:: 8 - Nutrition Nutrition: Nutrition Category Date Time Status NPO Diet [DIET] Diets 04/16/18 Breakfast Active Assessment/Plan - Assessment and Plan (Free Text) Plan: 43 year old male with no pmhx presenting to ED with RLQ abdominal pain, fever and chills since last , constipated x 3 days, code sepsis, elevated WBC, bandemia, elevated lactate, CT shows Rt lung consolidation, most likely due to aspiration PNA vs CA PNA. thoracentesis 02/13, likely superimposed consolidation in right upper lobe as well as possible right lower lobe as per 04/15 chest xray. 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 Neuro continues to be Intubated and sedated alcohol withdrawal syndrome with DT on 04/15 on propofol and Versed and Precedex Pulm hypoxic respiratory failure secondary to Community acquired PNA vs aspiration PNA with empyema. Intubated on vent PRVC 14/400/5/50 Chest xray - normal change in mid to inferior right sided consolidation, small right pleural effusion evident duoebs Q6Hrs abx - Clinda, vanco Meropenem Cardio thoracic sx consult - Dr Meza - no sx intervention at this time CTA - to rule out PE - f/u results Cardio continue to monitor GI Tube feedings Jevity initial rate @ 20 Renal monitor urine output fluid with positive balance - Lasix 40 mg IVP Q12H K 2.9 from 5.3 Potassium chloride 40meq oral solution Potassium chloride 40meq IV ID today WBC 11, bands decreasing to 9 from 19 Meropenem Q8, Vanco Q12H, Clinda Q8H Tamiflu Legionella, flu - negative Bcx pending, Ucx prelim no growth Dr Spring - ID follow up recs HIV, Hep, atypicals - negative pleural fluid - no growth pleural studies - WBC ~2 million, PPX DVT: lovenox GI: protonix Multivit, thiamine, Folic acid Ibuprofen 400mg PO Q6H PRN D5 @ 75 mls/hr Plan discussed with Dr Anupama Tate, PGY-1 - Date & Time Date: 04/17/18 Time: 10:00
[2018-04-17] MEDS: Midazolam 50 mg/10 ml 100 MG in Sodium Chloride 0.9% 80 ML IV SCH ×2 (10:54→20:15)
[2018-04-17] MEDS ORDERED: Potassium Chloride 20 mEq/15 ml LIQ UD PO ONE (12:15)
--- NOTE | 2018-04-17 18:05 | CT ---
Date of service: 04/17/2018 PROCEDURE: CT Chest with contrast (Pulmonary Angiogram) HISTORY: rule out PE COMPARISON: Comparison is made to the previous CT of the chest with contrast dated 04/15/2018 TECHNIQUE: Axial computed tomography images were obtained of the chest in the pulmonary arterial phase of enhancement. Coronal and sagittal reformatted images were created and reviewed. Intravenous contrast dose: 100 mL of Visipaque 320 intravenously Radiation dose: Total exam DLP = 650.48 mGy-cm. This CT exam was performed using one or more of the following dose reduction techniques: Automated exposure control, adjustment of the mA and/or kV according to patient size, and/or use of iterative reconstruction technique. FINDINGS: PULMONARY ARTERIES: Limited evaluate of the peripheral pulmonary arteries. No evidence of central pulmonary embolus. AORTA: No acute findings. No thoracic aortic aneurysm. No aortic atherosclerotic calcification or mural plaque present. LUNGS: The patient is status post intubation since the prior study. There is a large airspace consolidation in the right lower lobe right middle lobe and lower portion of the right upper lobe which has increased in size since the prior study. There is a airspace linear shape of consolidation in the left lower lobe noted. PLEURAL SPACES: There is moderate size likely localize pleural effusion on the right. There is also localized pleural effusion at the medial aspect of the right mid to upper chest measures 7 centimeter in the AP diameter and 2.9 centimeter in the transverse diameter. HEART: Unremarkable. No cardiomegaly. No significant pericardial effusion. LYMPH NODES: Mildly enlarged mediastinal lymph nodes are noted. BONES, CHEST WALL: Unremarkable. No fracture or destructive lesion OTHER FINDINGS: The scan through the upper abdomen demonstrate hepatomegaly with diffuse heterogeneous attenuation of the liver suggestive of moderate to severe hepatic steatosis. IMPRESSION: Suboptimal study. The assessment of the peripheral subsegmental pulmonary arteries is limited in this study. No evidence of central pulmonary embolus. Interval worsening of airspace consolidation at the right lung contains foci of low attenuation and possible fluid collection since the prior study. The possibility of infectious process and underline parenchymal lung disease should be considered. Interval worsening of right-sided multiple likely localize foci of pleural effusion . The possibility of right-sided empyema should be excluded. Interval appearance of small airspace consolidations in the left lung lower lobe since the previous exam.
--- NOTE | 2018-04-17 19:43 | CP.PCM.PN ---
Subjective - Date & Time of Evaluation Date of Evaluation: 04/17/18 Time of Evaluation: 19:00 - Subjective Subjective: Hospitalist Progress Note Patient was seen and examined at 7:00 PM 04/17/18 43 year old male who was admitted on 04/13/18 for evaluation of RLQ abdominal pain with subjective fevers/chills and complaints of nausea and constipation. He was found to have a RML and RLL Pneumonia. He had bedside Thoracentesis on 04/15/18 and roughly 1 liter of purulent material was collected suspicious for empyema. Cardiothoracic Surgery was consulted for placement of Chest Tube however on evening 04/15/18 patient started to have DTs and in light of the already concerning respiratory status, he was intubated. Please see Assessment and Plans below for further details. Upon ROS: NOT possible as he is intubated and on vent General:intubated and on vent HEENT: NCA, Pupils are pinpoint/equal/reactive to light, NO lymphadenopathy, NO thyromegaly Cardio: NS1 and NS2, NO M/R/G Resp: Course breath sounds diffusely GI: BSx4, Soft, Central Obesity Ext: NO edema, Capillary Refill is 2 seconds, Pulses are strong and equal Neuro: NOT possible Assessments: 1). Sepsis Secondary to Right Middle and Lower Lobe Pneumonia and Suspected Empyema As seen on CT Chest Suspect possible aspiration due to the history of alcohol use (see below) Azithromycin and Rocephin were discontinued on 04/15/18 Zosyn 3.375 gm IV Q6H (04/15/18 through 04/16/18) Clindamycin 600 mg IV Q8H (04/15/18) Vancomycin 1.25 gm IV Q12H (04/15/18) Meropenem 1 gm IV Q8H (04/16/18) Tamiflu 75 mg PO 2x/day (04/14/18) Blood Culture is negative to date CT Chest 04/15/18: extensive consolidation throughout the right hemithorax with relative sparing of the right lung apex, small loculated effusion measures 2.[address] maximum depth CT Angio Chest 04/17/18: NO PE, interval worsening of airspace consolidation at the right lung, interval worsening of right sided multiple likely localized foci of pleural effusion, the possibility of right sided empyema should be excluded ID Dr. Spring Cardiothoracic Surgery Dr. Meza: NO surgical intervention at this time. May need Chest Tube placement should effusion on right reaccumulate 2). Respiratory Distress Patient was intubated and placed on vent on evening 04/15/18 after he started to have DTs Currently on Versed 3). Alcohol Withdrawl Versed Ativan 1 mg IV Q4H PRN 4). Bilateral Perinephric Stranding As seen on CT Abdomen/Pelvis On exam 04/14/18 and 04/15/18 there was NO CVA tenderness UA shows NEGATIVE Nitrate, Ketones, and LE Doubt that this is Pyelonephritis as Urine Culture is negative 5). Alcohol Abuse Patient revealed 04/14/18 that he drank shots and multiple beers twice a week but told overnight team at time of admission that he did this 5x per week. Last drink was this past Friday04/10/18 as per patient Ativan 1 mg IV Q4H PRN Withdrawl 6). Hyponatremia Likely SIADH TSH and T4 are normal Morning Cortisol normal Triglycerides normal Urine Osm was high Urine Na was 35 7). Tachycardia Could this be secondary to the ongoing fever secondary to the pneumonia? EKG shows Sinus Tachycardia Tylenol 650 mg OGT Q4H PRN Fever 8). Elevated LFTs and Hepatic Parenchymal Disease (as seen CT Abdomen) Likely secondary to suspected alcohol abuse Hepatitis Panel negative HIV negative UDS negative 9). Hypokalemia ICU Team repleted 10). Hypomagnesemia Repleted with IV Magnesium Sulfate 04/14/18 11). Constipation As seen on Obstruction Series Senokot Colace 100 mg PO 3x/day Had bowel movement 04/15/18 12). Prophylaxis DVT risk score of 2 based upon Age and diagnosis of Sepsis: Heparin 5,000 Units SC Q8H and Bilateral SCDs As patient was intubated 04/15/18, Protonix 40 mg IV 1x/day Jevity via OGT started at 20 ml/hr with goal of 45 ml/hr Lactobacillus PO 2x/day 04/16/18: Mary was at bedside and he she was updated on patient's recent developements and status with the help of ICU residen Dr. Severino Tate 04/17/18: Two Sisters, Cousin, Nephew were at bedside and he she was updated on patient's recent developements and status with the help of ICU residen Dr. Severino Nguyen D.O. Objective - Vital Signs/Intake and Output Vital Signs (last 24 hours): Temp Pulse Resp BP Pulse Ox 96.8 F L 97 H 40 H 100/60 100 04/17/18 12:00 04/17/18 15:00 04/17/18 15:00 04/17/18 14:38 04/17/18 14:38 Intake and Output: 04/17/18 04/18/18 18:59 06:59 Intake Total 1794.3 Output Total 2375 Balance -580.7 - Medications Medications: Current Medications Albuterol/Ipratropium (Duoneb 3 Mg/0.5 Mg (3 Ml) Ud) 3 ml INH RQ6 [facility] Last Admin: 04/17/18 14:06 Dose: Not Given Docusate Sodium (Colace) 100 mg PO TID [facility] Last Admin: 04/17/18 18:17 Dose: 100 mg Enoxaparin Sodium (Lovenox) 40 mg SC DAILY [facility] Last Admin: 04/17/18 09:39 Dose: 40 mg Folic Acid (Folic Acid) 1 mg PO DAILY [facility] Last Admin: 04/17/18 09:40 Dose: 1 mg Furosemide (Lasix) 40 mg IVP Q12H [facility] Last Admin: 04/17/18 11:31 Dose: 40 mg Vancomycin HCl 1,250 mg/ (Sodium Chloride) 250 mls @ 125 mls/hr IVPB Q12H [facility]; Protocol Last Admin: 04/17/18 13:39 Dose: 125 mls/hr Propofol (Diprivan) 1,000 mg in 100 mls @ 2.79 mls/hr IV .Q24H PRN; Protocol PRN Reason: Agitation Last Titration: 04/17/18 18:00 Dose: 25 mcg/kg/min, 13.95 mls/hr Dextrose/Sodium Chloride (Dextrose 5%/0.45% Ns 1000 Ml) 1,000 mls @ 75 mls/hr IV .[id number] [facility] Last Admin: 04/17/18 09:41 Dose: 75 mls/hr Midazolam HCl 100 mg/ Sodium (Chloride) 100 mls @ 1.86 mls/hr IV .Q24H [facility]; Protocol Last Titration: 04/17/18 18:00 Dose: 0.04 mg/kg/hr, 4 mls/hr Meropenem 1 gm/ Sodium (Chloride) 100 mls @ 100 mls/hr IVPB Q8H [facility]; Protocol Last Admin: 04/17/18 12:25 Dose: 100 mls/hr Clindamycin Phosphate 900 mg/ (Sodium Chloride) 106 mls @ 100 mls/hr IV Q8H [facility]; Protocol Last Admin: 04/17/18 15:30 Dose: 100 mls/hr Dexmedetomidine HCl 200 mcg/ (Sodium Chloride) 50 mls @ 4.65 mls/hr IV TITR PRN; Protocol PRN Reason: Agitation Last Titration: 04/17/18 18:40 Dose: 0 mcg/kg/hr, 0 mls/hr Ibuprofen (Motrin Oral Susp) 400 mg PO Q6H PRN PRN Reason: fever Last Admin: 04/17/18 16:11 Dose: 400 mg Lactobacillus Acidophilus (Bacid Acidophilus) 1 cap PO BID [facility] Last Admin: 04/17/18 18:17 Dose: 1 cap Multivitamins (Hexavitamin) 1 tab PO DAILY [facility] Last Admin: 04/17/18 09:40 Dose: 1 tab Oseltamivir Phosphate (Tamiflu Cap) 75 mg PO BID [facility]; Protocol Stop: 04/19/18 18:57 Last Admin: 04/17/18 18:16 Dose: 75 mg Pantoprazole Sodium (Protonix Inj) 40 mg IVP DAILY [facility] Last Admin: 04/17/18 09:39 Dose: 40 mg Sennosides (Senokot Tab) 8.6 mg PO BID [facility] Last Admin: 04/17/18 18:17 Dose: 8.6 mg Thiamine HCl (Vitamin B1 Tab) 100 mg PO DAILY [facility] Last Admin: 04/17/18 09:39 Dose: 100 mg - Labs Labs: 04/17/18 05:15 04/17/18 05:15 PT 13.0 SECONDS (9.7-12.2) H 04/15/18 16:25 INR 1.2 04/15/18 16:25 APTT 35 SECONDS (21-34) H 04/15/18 16:25
--- NOTE | 2018-04-17 20:22 | CP.PCM.PN ---
Subjective - Date & Time of Evaluation Date of Evaluation: 04/17/18 Time of Evaluation: 16:00 - Subjective Subjective: dictated Objective - Vital Signs/Intake and Output Vital Signs (last 24 hours): Temp Pulse Resp BP Pulse Ox 100.8 F H 83 33 H 99/64 L 96 04/17/18 16:00 04/17/18 19:19 04/17/18 19:19 04/17/18 19:20 04/17/18 19:19 Intake and Output: 04/17/18 04/18/18 18:59 06:59 Intake Total 2312.8 123 Output Total 2730 40 Balance -417.2 83 - Medications Medications: Current Medications Albuterol/Ipratropium (Duoneb 3 Mg/0.5 Mg (3 Ml) Ud) 3 ml INH RQ6 [facility] Last Admin: 04/17/18 19:50 Dose: Not Given Docusate Sodium (Colace) 100 mg PO TID [facility] Last Admin: 04/17/18 18:17 Dose: 100 mg Enoxaparin Sodium (Lovenox) 40 mg SC DAILY [facility] Last Admin: 04/17/18 09:39 Dose: 40 mg Folic Acid (Folic Acid) 1 mg PO DAILY [facility] Last Admin: 04/17/18 09:40 Dose: 1 mg Furosemide (Lasix) 40 mg IVP Q12H [facility] Last Admin: 04/17/18 11:31 Dose: 40 mg Vancomycin HCl 1,250 mg/ (Sodium Chloride) 250 mls @ 125 mls/hr IVPB Q12H [facility]; Protocol Last Admin: 04/17/18 13:39 Dose: 125 mls/hr Propofol (Diprivan) 1,000 mg in 100 mls @ 2.79 mls/hr IV .Q24H PRN; Protocol PRN Reason: Agitation Last Titration: 04/17/18 18:00 Dose: 25 mcg/kg/min, 13.95 mls/hr Dextrose/Sodium Chloride (Dextrose 5%/0.45% Ns 1000 Ml) 1,000 mls @ 75 mls/hr IV .[id number] [facility] Last Admin: 04/17/18 09:41 Dose: 75 mls/hr Midazolam HCl 100 mg/ Sodium (Chloride) 100 mls @ 1.86 mls/hr IV .Q24H [facility]; Protocol Last Titration: 04/17/18 18:00 Dose: 0.04 mg/kg/hr, 4 mls/hr Meropenem 1 gm/ Sodium (Chloride) 100 mls @ 100 mls/hr IVPB Q8H [facility]; Protocol Last Admin: 04/17/18 12:25 Dose: 100 mls/hr Clindamycin Phosphate 900 mg/ (Sodium Chloride) 106 mls @ 100 mls/hr IV Q8H [facility]; Protocol Last Admin: 04/17/18 15:30 Dose: 100 mls/hr Dexmedetomidine HCl 200 mcg/ (Sodium Chloride) 50 mls @ 4.65 mls/hr IV TITR PRN; Protocol PRN Reason: Agitation Last Titration: 04/17/18 18:40 Dose: 0 mcg/kg/hr, 0 mls/hr Ibuprofen (Motrin Oral Susp) 400 mg PO Q6H PRN PRN Reason: fever Last Admin: 04/17/18 16:11 Dose: 400 mg Lactobacillus Acidophilus (Bacid Acidophilus) 1 cap PO BID [facility] Last Admin: 04/17/18 18:17 Dose: 1 cap Multivitamins (Hexavitamin) 1 tab PO DAILY [facility] Last Admin: 04/17/18 09:40 Dose: 1 tab Oseltamivir Phosphate (Tamiflu Cap) 75 mg PO BID [facility]; Protocol Stop: 04/19/18 18:57 Last Admin: 04/17/18 18:16 Dose: 75 mg Pantoprazole Sodium (Protonix Inj) 40 mg IVP DAILY [facility] Last Admin: 04/17/18 09:39 Dose: 40 mg Sennosides (Senokot Tab) 8.6 mg PO BID [facility] Last Admin: 04/17/18 18:17 Dose: 8.6 mg Thiamine HCl (Vitamin B1 Tab) 100 mg PO DAILY [facility] Last Admin: 04/17/18 09:39 Dose: 100 mg - Labs Labs: 04/17/18 05:15 04/17/18 05:15 PT 13.0 SECONDS (9.7-12.2) H 04/15/18 16:25 INR 1.2 04/15/18 16:25 APTT 35 SECONDS (21-34) H 04/15/18 16:25
--- NOTE | 2018-04-17 22:38 | PN ---
DATE: 04/17/2018 SUBJECTIVE: The patient is sedated, intubated and was spiking temp. We have adjusted the antibiotics. He still remains tachycardic. PHYSICAL EXAMINATION: VITAL SIGNS: His temperature was 100.8 today, heart rate of 103, blood pressure is 91/56, respirations are on the ventilator, but he is very tachypneic and fighting the respirator. HEENT: Head is atraumatic. NECK: Supple. LUNGS: Have bilateral rhonchi. HEART: S1 and S2, tachycardic. ABDOMEN: Soft, nontender. No guarding, no rigidity present. EXTREMITIES: Have no edema. LABORATORY DATA: White count today 16.9, has increased; hemoglobin 11.9; hematocrit 37; platelet count is 182. Neutrophils are 87.5. He still has 9 bands. He had like 53 bands before. His ABG shows this morning was okay, but right now he is fighting it. Chest CT was done today. ASSESSMENT AND PLAN: They did a CTA and the CTA shows the lung is status post intubation. There is large airspace consolidation in the right lower lobe, right middle lobe and lower portion of the right upper lobe which has been increased in size since the prior study. There is a airspace linear shape of consolidation in the left lower lobe, so he has like a multifocal pneumonia. They are worsening of the consolidation, interval worsening of the right middle localized focal and possibility of right-sided empyema should be excluded. He remains febrile. He probably is looking for a cardiothoracic surgery. As his numbers are even still rising, I have placed him on clindamycin, he is on 900 mg every 8 hours. He is on meropenem 1 g every 8 hours. He is on Tamiflu. He is on vancomycin 1250 mg every 12 hours. So, he is on multiple antibiotics and probably if he still has empyema, he needs decortication. He needs a chest tube or video-assisted thoracoscopic surgery procedure. I will discuss with the clinical reimbursement specialist. Renea Spring MD
[2018-04-18] MEDS: Albuterol-Ipratrop 3 mg / 0.5 (3 ml) UD INH SCH ×5 (00:34→20:16)
[2018-04-18] MEDS: Propofol 10 mg/ml 1,000 MG/100 ML VIAL IV PRN ×5 (03:30→20:30)
[2018-04-18 03:38] LABS: GLUCOSE PLEURAL FLUID 29 mg/dL; TOTAL PROTEIN PLEURAL FLUID 4.1 g/dL
[2018-04-18] MEDS: Meropenem 1 GM in Sodium Chloride 0.9% 100 ML IVPB SCH ×3 (05:00→21:21)
[2018-04-18] MEDS: Dexmedetomidine Hydrochloride 200 MCG in Sodium Chloride 0.9% 48 ML IV PRN ×6 (05:12→21:40)
[2018-04-18 05:43] LABS: ABG ALLEN TEST POS; ARTERIAL BLOOD GAS HCO3 27.7 mmol/L (21-28); ARTERIAL BLOOD GAS O2 SAT 91.5 % (95-98); ARTERIAL BLOOD GAS PCO2 42 mm/Hg (35-45); ARTERIAL BLOOD GAS PH 7.44 (7.35-7.45); ARTERIAL BLOOD GAS PO2 52 mm/Hg (80-100); ARTERIAL BLOOD GAS TCO2 29.8 mmol/L (22-28)
[2018-04-18 06:40] LABS: BASO # 0.2 K/uL (0.0-0.2); BASO % 0.8 % (0.0-2.0); EOS # 0.1 K/uL (0.0-0.7); EOS % 0.4 % (0.0-4.0); HEMOGLOBIN 12.6 g/dL (12.0-18.0); LYMPH % 4.5 % (20.0-40.0); MEAN CELL VOLUME 88.8 fL (80.0-94.0); MEAN CORPUSCULAR HEMOGLOBIN 29.1 pg (27.0-31.0); MEAN CORPUSCULAR HGB CONC 32.8 g/dL (33.0-37.0); MEAN PLATELET VOLUME 9.8 fL (7.2-11.7); MONO # 0.9 K/uL (0.0-0.8); MONO % 4.3 % (0.0-10.0); NEUT # 19.4 K/uL (1.8-7.0); NRBC % 0.1 % (0.0-2.0); PLATELET COUNT 245 K/uL (130-400); RBC 4.31 Mil/uL (4.40-5.90); RED CELL DISTRIBUTION WIDTH 14.8 % (11.5-14.5); WHITE BLOOD COUNT 21.6 K/uL (4.8-10.8)
[2018-04-18 07:06] LABS: ALB/GLOB RATIO 0.9 (1.0-2.1); ALBUMIN 2.7 g/dL (3.5-5.0); ALT/SGPT 128 U/L (21-72); AST/SGOT 151 U/L (17-59); BLOOD UREA NITROGEN 10 mg/dL (9-20); CALCIUM 7.6 mg/dl (8.6-10.4); GFR NON-AFRICAN AMERICAN > 60
[2018-04-18 08:53] LABS: ANISOCYTOSIS SLIGHT; BANDS 4 % (0-2); LYMPHOCYTE 2 % (20-40); MONOCYTE 5 % (0-10); NEUTROPHIL 89 % (50-75); PLATELET ESTIMATE NORMAL (NORMAL); TOTAL CELLS COUNTED 100
[2018-04-18 08:54] LABS: GIANT PLATELETS PRESENT; LARGE PLATELETS PRESENT; PLATELET CLUMPS PRESENT
[2018-04-18 08:55] LABS: HYPOCHROMIC SLIGHT; POLYCHROMIC SLIGHT; TOXIC GRANULATION PRESENT
[2018-04-18] MEDS: Lactobacillus Acidophilus 500 MU Cap PO SCH ×2 (09:19→18:04)
[2018-04-18] MEDS: Multiple Vitamins Tab PO SCH (09:19)
[2018-04-18] MEDS: Enoxaparin 40 mg Syringe SC SCH (09:20)
[2018-04-18] MEDS: Potassium Chloride 20 mEq/15 ml LIQ UD PO SCH (10:35)
[2018-04-18] MEDS: Midazolam 50 mg/10 ml 100 MG in Sodium Chloride 0.9% 80 ML IV SCH ×2 (10:57→20:30)
--- NOTE | 2018-04-18 12:14 | RAD ---
Chest x-ray single frontal view HISTORY: Ventilator. Comparison: 04/17/2018 Findings: Lines and tubes in stable position. Large loculated right pleural effusion. Small left pleural effusion. Patchy consolidative opacification within the right lung. Left basilar airspace consolidative change. Cardiomegaly. Degenerative changes in the spine. Impression: Lines and tubes in stable position. Large loculated right pleural effusion. Small left pleural effusion. Patchy consolidative opacification within the right lung. Left basilar airspace consolidative change. Cardiomegaly.
[2018-04-18 13:00] LABS: ARTERIAL BLOOD GAS HCO3 26.8 mmol/L (21-28); ARTERIAL BLOOD GAS O2 SAT 98.6 % (95-98); ARTERIAL BLOOD GAS PCO2 42 mm/Hg (35-45); ARTERIAL BLOOD GAS PH 7.42 (7.35-7.45); ARTERIAL BLOOD GAS PO2 84 mm/Hg (80-100); ARTERIAL BLOOD GAS TCO2 28.5 mmol/L (22-28)
--- NOTE | 2018-04-18 14:33 | CP.CCUPN ---
CCU Subjective - Physician Review Events Since Last Encounter (Free Text): 04/18/18 14:27 intubated and sedated. CCU Objective - Vital Signs / Intake & Output Vital Signs (Last 4 hours): Vital Signs Temp Pulse Resp BP Pulse Ox 04/18/18 14:00 78 31 H 97 04/18/18 13:18 84 37 H 108/69 98 04/18/18 13:00 88 34 H 98 04/18/18 12:00 100.2 F H 96 H 56 H 97 04/18/18 11:52 96 H 25 H 120/69 94 L 04/18/18 11:30 90 24 115/94 H 95 04/18/18 11:00 87 37 H 98 04/18/18 10:59 89 24 121/73 97 04/18/18 10:35 127/68 04/18/18 10:30 87 51 H 127/68 93 L Intake and Output (Last 8hrs): Intake & Output 04/17/18 04/18/18 04/18/18 22:59 06:59 14:59 Intake Total 1508.7 1292.0000 1772.9 Output Total 328 582 6789 Balance 798.7 807.0000 -347.1 Intake: IV 277.7 172.3000 360 Intake, IV Amount 941.0 979.7 1062.9 Left Antecubital 40 32 36 Left Forearm 375 Left Hand 11.5 Right Antecubital 164.5 168.3 195.2 Right Forearm 350 742 725 Right Hand 37.4 106.7 Tube Feeding 240 90 200 Other 50 50 150 Output: Urine 376 490 6528 Urethral (Roman) 764 266 1853 Other: # Bowel Movements 0 0 - Physical Exam Head: Positive for: Atraumatic, Normocephalic Pupils: Positive for: PERRL Extroacular Muscles: Positive for: EOMI Conjunctiva: Positive for: Normal Neck: Positive for: Normal Range of Motion Respiratory/Chest: Positive for: Decreased Breath Sounds (right middle and lower lobes ), Rales. Negative for: Respiratory Distress, Accessory Muscle Use Cardiovascular: Positive for: Regular Rate and Rhythm, Normal S1, S2 Abdomen: Positive for: Distention, Normal Bowel Sounds. Negative for: Tenderness Upper Extremity: Positive for: Normal Inspection. Negative for: Cyanosis, Edema Lower Extremity: Positive for: Normal Inspection. Negative for: Edema Neurological: Positive for: Other (unable to assess due to pts condition ) Skin: Positive for: Warm, Dry, Normal Color Psychiatric: Positive for: Other (sedated, not awake or oriented, not respond to verbal stimuli ) - Medications Active Medications: Active Medications Generic Name Dose Route Start Last Admin Trade Name Freq PRN Reason Stop Dose Admin Albuterol/Ipratropium 3 ml 04/15/18 08:00 04/18/18 14:02 Duoneb 3 Mg/0.5 Mg (3 Ml) Ud INH 3 ml RQ6 JESUS Administration Docusate Sodium 100 mg 04/14/18 18:30 04/18/18 13:28 Colace PO 100 mg TID JESUS Administration Enoxaparin Sodium 40 mg 04/14/18 10:00 04/18/18 09:20 Lovenox SC 40 mg DAILY JESUS Administration Folic Acid 1 mg 04/14/18 10:00 04/18/18 09:20 Folic Acid PO 1 mg DAILY JESUS Administration Furosemide 40 mg 04/17/18 11:00 04/18/18 10:35 Lasix IVP 40 mg Q12H JESUS Administration Vancomycin HCl 1,250 mg/ 250 mls @ 125 mls/hr 04/16/18 01:30 04/18/18 13:29 Sodium Chloride IVPB 125 mls/hr Q12H JESUS Administration Protocol Propofol 1,000 mg in 100 mls @ 2.79 mls/hr 04/15/18 21:20 04/18/18 13:20 Diprivan IV 40 mcg/kg/min .Q24H PRN 22.32 mls/hr Agitation Titration Protocol 5 MCG/KG/MIN Midazolam HCl 100 mg/ Sodium 100 mls @ 1.86 mls/hr 04/16/18 20:15 04/18/18 10:57 Chloride IV 0.05 mg/kg/hr .Q24H JESUS 5 mls/hr Administration Protocol 0.02 MG/KG/HR Meropenem 1 gm/ Sodium 100 mls @ 100 mls/hr 04/16/18 21:00 04/18/18 13:00 Chloride IVPB 100 mls/hr Q8H JESUS Administration Protocol Clindamycin Phosphate 900 mg/ 106 mls @ 100 mls/hr 04/16/18 23:30 04/18/18 07:26 Sodium Chloride IV 100 mls/hr Q8H JESUS Administration Protocol Dexmedetomidine HCl 200 mcg/ 50 mls @ 4.65 mls/hr 04/17/18 15:56 04/18/18 13:58 Sodium Chloride IV 0.9 mcg/kg/hr TITR PRN 20.93 mls/hr Agitation Administration Protocol 0.2 MCG/KG/HR Ibuprofen 400 mg 04/17/18 15:54 04/17/18 22:15 Motrin Oral Susp PO 400 mg Q6H PRN Administration fever Lactobacillus Acidophilus 1 cap 04/14/18 18:45 04/18/18 09:19 Bacid Acidophilus PO 1 cap BID JESUS Administration Multivitamins 1 tab 04/14/18 10:00 04/18/18 09:19 Hexavitamin PO 1 tab DAILY JESUS Administration Pantoprazole Sodium 40 mg 04/14/18 10:00 04/18/18 09:19 Protonix Inj IVP 40 mg DAILY JESUS Administration Potassium Chloride 40 meq 04/18/18 10:30 04/18/18 10:35 Potassium Chloride Oral Soln PO 40 meq DAILY JESUS Administration Sennosides 8.6 mg 04/14/18 00:15 04/18/18 09:20 Senokot Tab PO 8.6 mg BID JESUS Administration Thiamine HCl 100 mg 04/14/18 10:00 04/18/18 09:19 Vitamin B1 Tab PO 100 mg DAILY JESUS Administration - Patient Studies Lab Studies: Microbiology Studies 04/17/18 01:07 Gram Stain - Final Trachasp Sputum Culture - Preliminary No growth. 04/15/18 13:49 Gram Stain - Final Thoracic Fluid Body Fluid Culture - Preliminary NO GROWTH AFTER 3 DAYS 04/13/18 21:43 Blood Culture - Preliminary Blood NO GROWTH AFTER 4 DAYS 04/13/18 21:00 Blood Culture - Preliminary Blood NO GROWTH AFTER 4 DAYS 04/16/18 05:42 Urine Culture - Final Urine,Catheterized No Growth (<1,000 CFU/ML) Lab Studies 04/18/18 04/18/18 04/18/18 Range/Units 12:56 12:06 06:42 WBC (4.8-10.8) K/uL RBC (4.40-5.90) Mil/uL Hgb (12.0-18.0) g/dL Hct (35.0-51.0) % MCV (80.0-94.0) fL MCH (27.0-31.0) pg MCHC (33.0-37.0) g/dL RDW (11.5-14.5) % Plt Count (130-400) K/uL MPV (7.2-11.7) fL Neut % (Auto) (50.0-75.0) % Lymph % (Auto) (20.0-40.0) % [place] % (Auto) (0.0-10.0) % Eos % (Auto) (0.0-4.0) % Baso % (Auto) (0.0-2.0) % Neut # (Auto) (1.8-7.0) K/uL Lymph # (Auto) (1.0-4.3) K/uL [place] # (Auto) (0.0-0.8) K/uL Eos # (Auto) (0.0-0.7) K/uL Baso # (Auto) (0.0-0.2) K/uL Neutrophils % (Manual) (50-75) % Band Neutrophils % (0-2) % Lymphocytes % (Manual) (20-40) % Monocytes % (Manual) (0-10) % Toxic Granulation Platelet Estimate (NORMAL) Plt Clumps, EDTA Large Platelets Giant Platelets Polychromasia Hypochromasia (manual) Anisocytosis (manual) Puncture Site Lf pCO2 42 (35-45) mm/Hg pO2 84 (80-100) mm/Hg HCO3 26.8 (21-28) mmol/L ABG pH 7.42 (7.35-7.45) ABG Total CO2 28.5 H (22-28) mmol/L ABG O2 Saturation 98.6 H (95-98) % ABG Base Excess 2.4 (-2.0-3.0) mmol/L [place] Test Na ABG Potassium 3.2 L (3.6-5.2) mmol/L A-a O2 Difference 434.0 mm/Hg Respiratory Index 5.2 Sodium 141.0 (132-148) mmol/l Chloride 107.0 (98-107) mmol/L Glucose 103 (75-110) mg/dl Lactate 1.1 (0.7-2.1) mmol/L Vent Mode Mechanical Rate 14 FiO2 80.0 % Tidal Volume 400 PEEP 10 Crit Value Called To Dr sandoval Crit Value Called By Luis Fernando silverman roller skater Crit Value Read Back Y Blood Gas Notified Time 1300 Potassium (3.6-5.2) mmol/L Carbon Dioxide (22-30) mmol/L Anion Gap (10-20) BUN (9-20) mg/dL Creatinine (0.8-1.5) mg/dL Est GFR ( Amer) Est GFR (Non-Af Amer) POC Glucose (mg/dL) 91 148 H (65-110) mg/dL Random Glucose (75-110) mg/dL Calcium (8.6-10.4) mg/dl Phosphorus (2.5-4.5) mg/dL Magnesium (1.6-2.3) mg/dL Total Bilirubin (0.2-1.3) mg/dL AST (17-59) U/L ALT (21-72) U/L Alkaline Phosphatase (38-126) U/L Total Protein (6.3-8.3) g/dL Albumin (3.5-5.0) g/dL Globulin (2.2-3.9) gm/dL Albumin/Globulin Ratio (1.0-2.1) Arterial Blood Potassium 3.2 L (3.6-5.2) mmol/L Pleural Total Protein g/dL Pleural LDH Pleural Glucose mg/dL 04/18/18 04/18/18 04/18/18 Range/Units 06:37 06:37 05:23 WBC 21.6 H (4.8-10.8) K/uL RBC 4.31 L (4.40-5.90) Mil/uL Hgb 12.6 (12.0-18.0) g/dL Hct 38.3 (35.0-51.0) % MCV 88.8 (80.0-94.0) fL MCH 29.1 (27.0-31.0) pg MCHC 32.8 L (33.0-37.0) g/dL RDW 14.8 H (11.5-14.5) % Plt Count 245 (130-400) K/uL MPV 9.8 (7.2-11.7) fL Neut % (Auto) 90.0 H (50.0-75.0) % Lymph % (Auto) 4.5 L (20.0-40.0) % [place] % (Auto) 4.3 (0.0-10.0) % Eos % (Auto) 0.4 (0.0-4.0) % Baso % (Auto) 0.8 (0.0-2.0) % Neut # (Auto) 19.4 H (1.8-7.0) K/uL Lymph # (Auto) 1.0 (1.0-4.3) K/uL [place] # (Auto) 0.9 H (0.0-0.8) K/uL Eos # (Auto) 0.1 (0.0-0.7) K/uL Baso # (Auto) 0.2 (0.0-0.2) K/uL Neutrophils % (Manual) 89 H (50-75) % Band Neutrophils % 4 H (0-2) % Lymphocytes % (Manual) 2 L (20-40) % Monocytes % (Manual) 5 (0-10) % Toxic Granulation Present Platelet Estimate Normal (NORMAL) Plt Clumps, EDTA Present Large Platelets Present Giant Platelets Present Polychromasia Slight Hypochromasia (manual) Slight Anisocytosis (manual) Slight Puncture Site R rad pCO2 42 (35-45) mm/Hg pO2 52 L (80-100) mm/Hg HCO3 27.7 (21-28) mmol/L ABG pH 7.44 (7.35-7.45) ABG Total CO2 29.8 H (22-28) mmol/L ABG O2 Saturation 91.5 L (95-98) % ABG Base Excess 3.9 H (-2.0-3.0) mmol/L [place] Test Pos ABG Potassium 3.1 L (3.6-5.2) mmol/L A-a O2 Difference 323.0 mm/Hg Respiratory Index 6.2 Sodium 137 142.0 (132-148) mmol/l Chloride 103 110.0 H (98-107) mmol/L Glucose 98 (75-110) mg/dl Lactate 0.9 (0.7-2.1) mmol/L Vent Mode Prvc Mechanical Rate 14 FiO2 60.0 % Tidal Volume 400 PEEP 5 Crit Value Called To Crit Value Called By Crit Value Read Back Blood Gas Notified Time Potassium 3.3 L (3.6-5.2) mmol/L Carbon Dioxide 30 (22-30) mmol/L Anion Gap 8 L (10-20) BUN 10 (9-20) mg/dL Creatinine 0.8 (0.8-1.5) mg/dL Est GFR ( Amer) > 60 Est GFR (Non-Af Amer) > 60 POC Glucose (mg/dL) (65-110) mg/dL Random Glucose 98 (75-110) mg/dL Calcium 7.6 L (8.6-10.4) mg/dl Phosphorus 4.2 (2.5-4.5) mg/dL Magnesium 2.1 (1.6-2.3) mg/dL Total Bilirubin 1.2 (0.2-1.3) mg/dL AST 151 H (17-59) U/L ALT 128 H (21-72) U/L Alkaline Phosphatase 272 H D (38-126) U/L Total Protein 5.8 L (6.3-8.3) g/dL Albumin 2.7 L (3.5-5.0) g/dL Globulin 3.1 (2.2-3.9) gm/dL Albumin/Globulin Ratio 0.9 L (1.0-2.1) Arterial Blood Potassium 3.1 L (3.6-5.2) mmol/L Pleural Total Protein g/dL Pleural LDH Pleural Glucose mg/dL 04/17/18 04/17/18 04/15/18 Range/Units 23:56 17:50 13:49 WBC (4.8-10.8) K/uL RBC (4.40-5.90) Mil/uL Hgb (12.0-18.0) g/dL Hct (35.0-51.0) % MCV (80.0-94.0) fL MCH (27.0-31.0) pg MCHC (33.0-37.0) g/dL RDW (11.5-14.5) % Plt Count (130-400) K/uL MPV (7.2-11.7) fL Neut % (Auto) (50.0-75.0) % Lymph % (Auto) (20.0-40.0) % [place] % (Auto) (0.0-10.0) % Eos % (Auto) (0.0-4.0) % Baso % (Auto) (0.0-2.0) % Neut # (Auto) (1.8-7.0) K/uL Lymph # (Auto) (1.0-4.3) K/uL [place] # (Auto) (0.0-0.8) K/uL Eos # (Auto) (0.0-0.7) K/uL Baso # (Auto) (0.0-0.2) K/uL Neutrophils % (Manual) (50-75) % Band Neutrophils % (0-2) % Lymphocytes % (Manual) (20-40) % Monocytes % (Manual) (0-10) % Toxic Granulation Platelet Estimate (NORMAL) Plt Clumps, EDTA Large Platelets Giant Platelets Polychromasia Hypochromasia (manual) Anisocytosis (manual) Puncture Site pCO2 (35-45) mm/Hg pO2 (80-100) mm/Hg HCO3 (21-28) mmol/L ABG pH (7.35-7.45) ABG Total CO2 (22-28) mmol/L ABG O2 Saturation (95-98) % ABG Base Excess (-2.0-3.0) mmol/L [place] Test ABG Potassium (3.6-5.2) mmol/L A-a O2 Difference mm/Hg Respiratory Index Sodium (132-148) mmol/l Chloride (98-107) mmol/L Glucose (75-110) mg/dl Lactate (0.7-2.1) mmol/L Vent Mode Mechanical Rate FiO2 % Tidal Volume PEEP Crit Value Called To Crit Value Called By Crit Value Read Back Blood Gas Notified Time Potassium (3.6-5.2) mmol/L Carbon Dioxide (22-30) mmol/L Anion Gap (10-20) BUN (9-20) mg/dL Creatinine (0.8-1.5) mg/dL Est GFR ( Amer) Est GFR (Non-Af Amer) POC Glucose (mg/dL) 113 H 134 H (65-110) mg/dL Random Glucose (75-110) mg/dL Calcium (8.6-10.4) mg/dl Phosphorus (2.5-4.5) mg/dL Magnesium (1.6-2.3) mg/dL Total Bilirubin (0.2-1.3) mg/dL AST (17-59) U/L ALT (21-72) U/L Alkaline Phosphatase (38-126) U/L Total Protein (6.3-8.3) g/dL Albumin (3.5-5.0) g/dL Globulin (2.2-3.9) gm/dL Albumin/Globulin Ratio (1.0-2.1) Arterial Blood Potassium (3.6-5.2) mmol/L Pleural Total Protein 4.1 g/dL Pleural LDH see note Pleural Glucose 29 mg/dL Laboratory Results - last 24 hr 04/15/18 04/17/18 04/17/18 13:49 17:50 23:56 WBC RBC Hgb Hct MCV MCH MCHC RDW Plt Count MPV Neut % (Auto) Lymph % (Auto) [place] % (Auto) Eos % (Auto) Baso % (Auto) Neut # (Auto) Lymph # (Auto) [place] # (Auto) Eos # (Auto) Baso # (Auto) Neutrophils % (Manual) Band Neutrophils % Lymphocytes % (Manual) Monocytes % (Manual) Toxic Granulation Platelet Estimate Plt Clumps, EDTA Large Platelets Giant Platelets Polychromasia Hypochromasia (manual) Anisocytosis (manual) Puncture Site pCO2 pO2 HCO3 ABG pH ABG Total CO2 ABG O2 Saturation ABG Base Excess [place] Test ABG Potassium A-a O2 Difference Respiratory Index Sodium Chloride Glucose Lactate Vent Mode Mechanical Rate FiO2 Tidal Volume PEEP Crit Value Called To Crit Value Called By Crit Value Read Back Blood Gas Notified Time Potassium Carbon Dioxide Anion Gap BUN Creatinine Est GFR ( Amer) Est GFR (Non-Af Amer) POC Glucose (mg/dL) 134 H 113 H Random Glucose Calcium Phosphorus Magnesium Total Bilirubin AST ALT Alkaline Phosphatase Total Protein Albumin Globulin Albumin/Globulin Ratio Arterial Blood Potassium Pleural Total Protein 4.1 Pleural LDH see note Pleural Glucose 29 04/18/18 04/18/18 04/18/18 05:23 06:37 06:37 WBC 21.6 H RBC 4.31 L Hgb 12.6 Hct 38.3 MCV 88.8 MCH 29.1 MCHC 32.8 L RDW 14.8 H Plt Count 245 MPV 9.8 Neut % (Auto) 90.0 H Lymph % (Auto) 4.5 L [place] % (Auto) 4.3 Eos % (Auto) 0.4 Baso % (Auto) 0.8 Neut # (Auto) 19.4 H Lymph # (Auto) 1.0 [place] # (Auto) 0.9 H Eos # (Auto) 0.1 Baso # (Auto) 0.2 Neutrophils % (Manual) 89 H Band Neutrophils % 4 H Lymphocytes % (Manual) 2 L Monocytes % (Manual) 5 Toxic Granulation Present Platelet Estimate Normal Plt Clumps, EDTA Present Large Platelets Present Giant Platelets Present Polychromasia Slight Hypochromasia (manual) Slight Anisocytosis (manual) Slight Puncture Site R rad pCO2 42 pO2 52 L HCO3 27.7 ABG pH 7.44 ABG Total CO2 29.8 H ABG O2 Saturation 91.5 L ABG Base Excess 3.9 H [place] Test Pos ABG Potassium 3.1 L A-a O2 Difference 323.0 Respiratory Index 6.2 Sodium 142.0 137 Chloride 110.0 H 103 Glucose 98 Lactate 0.9 Vent Mode Prvc Mechanical Rate 14 FiO2 60.0 Tidal Volume 400 PEEP 5 Crit Value Called To Crit Value Called By Crit Value Read Back Blood Gas Notified Time Potassium 3.3 L Carbon Dioxide 30 Anion Gap 8 L BUN 10 Creatinine 0.8 Est GFR ( Amer) > 60 Est GFR (Non-Af Amer) > 60 POC Glucose (mg/dL) Random Glucose 98 Calcium 7.6 L Phosphorus 4.2 Magnesium 2.1 Total Bilirubin 1.2 AST 151 H ALT 128 H Alkaline Phosphatase 272 H D Total Protein 5.8 L Albumin 2.7 L Globulin 3.1 Albumin/Globulin Ratio 0.9 L Arterial Blood Potassium 3.1 L Pleural Total Protein Pleural LDH Pleural Glucose 04/18/18 04/18/18 04/18/18 06:42 12:06 12:56 WBC RBC Hgb Hct MCV MCH MCHC RDW Plt Count MPV Neut % (Auto) Lymph % (Auto) [place] % (Auto) Eos % (Auto) Baso % (Auto) Neut # (Auto) Lymph # (Auto) [place] # (Auto) Eos # (Auto) Baso # (Auto) Neutrophils % (Manual) Band Neutrophils % Lymphocytes % (Manual) Monocytes % (Manual) Toxic Granulation Platelet Estimate Plt Clumps, EDTA Large Platelets Giant Platelets Polychromasia Hypochromasia (manual) Anisocytosis (manual) Puncture Site Lf pCO2 42 pO2 84 HCO3 26.8 ABG pH 7.42 ABG Total CO2 28.5 H ABG O2 Saturation 98.6 H ABG Base Excess 2.4 [place] Test Na ABG Potassium 3.2 L A-a O2 Difference 434.0 Respiratory Index 5.2 Sodium 141.0 Chloride 107.0 Glucose 103 Lactate 1.1 Vent Mode Mechanical Rate 14 FiO2 80.0 Tidal Volume 400 PEEP 10 Crit Value Called To Dr sandoval Crit Value Called By Luis Fernando silverman crt Crit Value Read Back Y Blood Gas Notified Time 1300 Potassium Carbon Dioxide Anion Gap BUN Creatinine Est GFR ( Amer) Est GFR (Non-Af Amer) POC Glucose (mg/dL) 148 H 91 Random Glucose Calcium Phosphorus Magnesium Total Bilirubin AST ALT Alkaline Phosphatase Total Protein Albumin Globulin Albumin/Globulin Ratio Arterial Blood Potassium 3.2 L Pleural Total Protein Pleural LDH Pleural Glucose Radiology Impressions: Radiology Impressions Chest CT 04/17/18 08:02 IMPRESSION: Suboptimal study. The assessment of the peripheral subsegmental pulmonary arteries is limited in this study. No evidence of central pulmonary embolus. Interval worsening of airspace consolidation at the right lung contains foci of low attenuation and possible fluid collection since the prior study. The possibility of infectious process and underline parenchymal lung disease should be considered. Interval worsening of right-sided multiple likely localize foci of pleural effusion . The possibility of right-sided empyema should be excluded. Interval appearance of small airspace consolidations in the left lung lower lobe since the previous exam. Chest X-Ray 04/18/18 10:15 Impression: Lines and tubes in stable position. Large loculated right pleural effusion. Small left pleural effusion. Patchy consolidative opacification within the right lung. Left basilar airspace consolidative change. Cardiomegaly. Review of Systems - Review of Systems Systems not reviewed;Unavailable: Intubated Critical Care Progress Note - Nutrition Nutrition: Nutrition Category Date Time Status NPO Diet [DIET] Diets 04/16/18 Breakfast Active Assessment/Plan (1) Community acquired pneumonia Assessment and plan: 43yo M. PMHx of alcohol abuse. p/w abdominal pain secondary to constipation and community acquired pneumonia. Thoracentesis (05/16), empyema. Intubated for worsening respiratory failure with hypoxia and delirium tremens (05/16). Neuro: sedated with versed gtt, propofol gtt, and precedex gtt. Pulm: acute respiratory failure with hypoxia secondary to CAP with empyema. Patient will need VATs, consulted Thoracic surgery, Dr. Meza. CV: hemodynamically stable. Hem: leucocytosis from sepsis Renal: diuresing for hypervolemia with lasix. hypokalemia secondary to lasix, supplemented. Endo: no acute issues GI: NPO, [email or web address] ID: severe sepsis from CAP with empyema, continue meropenem, Vancomycin and clindamycin. DVT proph - lovenox GI proph - protonix roman for strict I/O's during acute illness Code status - full code Critical Care Time spent 35 minutes Multi-disciplinary rounds were performed with house staff, nursing, speech therapy, respiratory therapy, pharmacy and nutrition with integrated input from the primary team/attending and other consulting services. The documented time is cumulative and includes review of patient data/exams/labs/chart review and examination of the patient on rounds and throughout the day; time is exclusive of any procedures or teaching time. Current Visit: Yes Status: Acute
[2018-04-18] MEDS ORDERED: Lidocaine 2% w Epi 1:100,000 Inj IJ ONE (15:26)
--- NOTE | 2018-04-18 17:09 | CP.PCM.PN ---
Subjective - Date & Time of Evaluation Date of Evaluation: 04/18/18 Time of Evaluation: 17:00 - Subjective Subjective: Hospitalist Progress Note Patient was seen and examined at 5:00 PM 04/18/18 43 year old male who was admitted on 04/13/18 for evaluation of RLQ abdominal pain with subjective fevers/chills and complaints of nausea and constipation. He was found to have a RML and RLL Pneumonia. He had bedside Thoracentesis on 04/15/18 and roughly 1 liter of purulent material was collected suspicious for empyema. Cardiothoracic Surgery was consulted for placement of Chest Tube however on evening 04/15/18 patient started to have DTs and in light of the already concerning respiratory status, he was intubated. Please see Assessment and Plans below for further details. Due to agitation on night of 04/17/18, patient had to be placed on Precedex and Propofol in addition to the Versed that he was on. As CT Angio Chest 04/17/18 indicated worsening of right sided pleural effusion, Right Chest Tube was placed by Surgery Team 04/18/18 and pleural was sent for culture. Upon ROS: NOT possible as he is intubated and on vent General:intubated and on vent HEENT: NCA, Pupils are pinpoint/equal/reactive to light, NO lymphadenopathy, NO thyromegaly Cardio: NS1 and NS2, NO M/R/G Resp: Course breath sounds diffusely GI: BSx4, Soft, Central Obesity Ext: NO edema, Capillary Refill is 2 seconds, Pulses are strong and equal Neuro: NOT possible Assessments: 1). Sepsis Secondary to Right Middle and Lower Lobe Pneumonia and Suspected Empyema As seen on CT Chest Suspect possible aspiration due to the history of alcohol use (see below) Azithromycin and Rocephin were discontinued on 04/15/18 Zosyn 3.375 gm IV Q6H (04/15/18 through 04/16/18) Clindamycin 600 mg IV Q8H (04/15/18) Vancomycin 1.25 gm IV Q12H (04/15/18) Meropenem 1 gm IV Q8H (04/16/18) Tamiflu 75 mg PO 2x/day (04/14/18) Blood Culture is negative to date CT Chest 04/15/18: extensive consolidation throughout the right hemithorax with relative sparing of the right lung apex, small loculated effusion measures 2.[address] depth [address] Angio Chest 04/17/18: NO PE, interval worsening of airspace consolidation at the right lung, interval worsening of right sided multiple likely localized foci of pleural effusion, the possibility of right sided empyema should be excluded ID Dr. Spring Cardiothoracic Surgery Dr. Meza: Chest tube placed 04/18/18 and pleural fluid culture will have to be followed up 2). Respiratory Distress Patient was intubated and placed on vent on evening 04/15/18 after he started to have DTs Currently on Versed, Propofol and Precedex 3). Alcohol Withdrawl Currently on Versed, Propofol and Precedex 4). Bilateral Perinephric Stranding As seen on CT Abdomen/Pelvis On exam 04/14/18 and 04/15/18 there was NO CVA tenderness UA shows NEGATIVE Nitrate, Ketones, and LE Doubt that this is Pyelonephritis as Urine Culture is negative 5). Alcohol Abuse Patient revealed 04/14/18 that he drank shots and multiple beers twice a week but told overnight team at time of admission that he did this 5x per week. Last drink was this past Friday04/10/18 as per patient 6). Hyponatremia Likely SIADH TSH and T4 are normal Morning Cortisol normal Triglycerides normal Urine Osm was high Urine Na was 35 7). Tachycardia Could this be secondary to the ongoing fever secondary to the pneumonia? EKG shows Sinus Tachycardia Tylenol 650 mg OGT Q4H PRN Fever 8). Elevated LFTs and Hepatic Parenchymal Disease (as seen CT Abdomen) Likely secondary to suspected alcohol abuse Hepatitis Panel negative HIV negative UDS negative 9). Hypokalemia ICU Team repleted 10). Hypomagnesemia Repleted with IV Magnesium Sulfate 04/14/18 11). Constipation As seen on Obstruction Series Senokot Colace 100 mg PO 3x/day Had bowel movement 04/15/18 12). Prophylaxis DVT risk score of 2 based upon Age and diagnosis of Sepsis: Heparin 5,000 Units SC Q8H and Bilateral SCDs As patient was intubated 04/15/18, Protonix 40 mg IV 1x/day Jevity via OGT started at 20 ml/hr with goal of 45 ml/hr Lactobacillus PO 2x/day 04/16/18: Mary was at bedside and he she was updated on patient's recent developements and status with the help of ICU residen Dr. Severino Tate 04/17/18: Two Sisters, Cousin, Nephew were at bedside and he she was updated on patient's recent developements and status with the help of ICU residen Dr. Severino Tate 04/18/18: with the help of brother in law Carson (who speaks Korean) family members included Mary, were udated as to patient status Franki Nguyen D.O. Objective - Vital Signs/Intake and Output Vital Signs (last 24 hours): Temp Pulse Resp BP Pulse Ox 100.2 F H 73 27 H 117/73 92 L 04/18/18 12:00 04/18/18 16:00 04/18/18 16:00 04/18/18 15:21 04/18/18 16:00 Intake and Output: 04/18/18 04/18/18 06:59 18:59 Intake Total 1891.7000 1959.3 Output Total 690 2345 Balance 1201.7000 -385.7 - Medications Medications: Current Medications Albuterol/Ipratropium (Duoneb 3 Mg/0.5 Mg (3 Ml) Ud) 3 ml INH RQ6 [facility] Last Admin: 04/18/18 14:02 Dose: 3 ml Docusate Sodium (Colace) 100 mg PO TID [facility] Last Admin: 04/18/18 13:28 Dose: 100 mg Enoxaparin Sodium (Lovenox) 40 mg SC DAILY [facility] Last Admin: 04/18/18 09:20 Dose: 40 mg Folic Acid (Folic Acid) 1 mg PO DAILY [facility] Last Admin: 04/18/18 09:20 Dose: 1 mg Furosemide (Lasix) 40 mg IVP Q12H [facility] Last Admin: 04/18/18 10:35 Dose: 40 mg Vancomycin HCl 1,250 mg/ (Sodium Chloride) 250 mls @ 125 mls/hr IVPB Q12H [facility]; Protocol Last Admin: 04/18/18 13:29 Dose: 125 mls/hr Propofol (Diprivan) 1,000 mg in 100 mls @ 2.79 mls/hr IV .Q24H PRN; Protocol PRN Reason: Agitation Last Admin: 04/18/18 15:16 Dose: 40 mcg/kg/min, 22.32 mls/hr Midazolam HCl 100 mg/ Sodium (Chloride) 100 mls @ 1.86 mls/hr IV .Q24H [facility]; Protocol Last Admin: 04/18/18 10:57 Dose: 0.05 mg/kg/hr, 5 mls/hr Meropenem 1 gm/ Sodium (Chloride) 100 mls @ 100 mls/hr IVPB Q8H [facility]; Protocol Last Admin: 04/18/18 13:00 Dose: 100 mls/hr Clindamycin Phosphate 900 mg/ (Sodium Chloride) 106 mls @ 100 mls/hr IV Q8H [facility]; Protocol Last Admin: 04/18/18 16:41 Dose: 100 mls/hr Dexmedetomidine HCl 200 mcg/ (Sodium Chloride) 50 mls @ 4.65 mls/hr IV TITR PRN; Protocol PRN Reason: Agitation Last Admin: 04/18/18 16:42 Dose: 0.9 mcg/kg/hr, 20.93 mls/hr Ibuprofen (Motrin Oral Susp) 400 mg PO Q6H PRN PRN Reason: fever Last Admin: 04/17/18 22:15 Dose: 400 mg Lactobacillus Acidophilus (Bacid Acidophilus) 1 cap PO BID [facility] Last Admin: 04/18/18 09:19 Dose: 1 cap Multivitamins (Hexavitamin) 1 tab PO DAILY [facility] Last Admin: 04/18/18 09:19 Dose: 1 tab Pantoprazole Sodium (Protonix Inj) 40 mg IVP DAILY [facility] Last Admin: 04/18/18 09:19 Dose: 40 mg Potassium Chloride (Potassium Chloride Oral Soln) 40 meq PO DAILY [facility] Last Admin: 04/18/18 10:35 Dose: 40 meq Sennosides (Senokot Tab) 8.6 mg PO BID [facility] Last Admin: 04/18/18 09:20 Dose: 8.6 mg Thiamine HCl (Vitamin B1 Tab) 100 mg PO DAILY [facility] Last Admin: 04/18/18 09:19 Dose: 100 mg - Labs Labs: 04/18/18 06:37 04/18/18 06:37 PT 13.0 SECONDS (9.7-12.2) H 04/15/18 16:25 INR 1.2 04/15/18 16:25 APTT 35 SECONDS (21-34) H 04/15/18 16:25
[2018-04-18] MEDS ORDERED: EPINEPHrine 1 mg/ml (1:1000) Inj ONE (17:10)
[2018-04-18] MEDS ORDERED: Lidocaine 2% MPF (5 ml) Inj ONE (17:10)
--- NOTE | 2018-04-18 17:10 | RAD ---
Chest x-ray single frontal view HISTORY: Chest tube insertion. Comparison: 04/18/2018 Findings: Interval insertion of a right chest tube with interval decrease of a now small to moderate right pleural effusion. Consolidative changes seen throughout the right lung. Additional consolidative changes in the left infrahilar region. Endotracheal and NG tube in stable position. Heart size within normal limits. Impression: Interval insertion of a right chest tube with interval decrease of a now small to moderate right pleural effusion. Consolidative changes seen throughout the right lung. Additional consolidative changes in the left infrahilar region.
[2018-04-18 17:53] LABS: BODY FLUID TYPE PLEURAL
[2018-04-18 19:06] LABS: BODY FLUID MONO/MACROPHAGE 3 % (0-0); BODY FLUID TOTAL COUNT 100 (0-0)
[2018-04-18 19:18] LABS: BF GROSS APPEARANCE BLOODY (CLEAR)
--- NOTE | 2018-04-18 21:26 | PN ---
DATE: 04/18/2018 SUBJECTIVE: I came to see him where he was getting a chest tube done. He is on clindamycin, vancomycin, Zosyn and also on Tamiflu. So, at this time, we will continue all these medications. LABORATORY DATA: Labs show white count went up to 21.6 and he probably has empyema. AST and ALT have increased may be due to sepsis or with medications. We will send for fluid studies so that we can follow the cultures. He also had septic workup elsewhere, blood culture, urine culture and all have been negative so far. IMPRESSION: He has empyema with multifocal pneumonia. Renea Spring MD
[2018-04-19] MEDS: Dexmedetomidine Hydrochloride 200 MCG in Sodium Chloride 0.9% 48 ML IV PRN ×10 (00:20→21:56)
[2018-04-19] MEDS: Albuterol-Ipratrop 3 mg / 0.5 (3 ml) UD INH SCH ×4 (01:08→20:01)
[2018-04-19] MEDS: Propofol 10 mg/ml 1,000 MG/100 ML VIAL IV PRN ×6 (01:20→21:50)
[2018-04-19] MEDS ORDERED: Albuterol-Ipratrop 3 mg / 0.5 (3 ml) UD INH STA (03:09)
[2018-04-19] MEDS: Meropenem 1 GM in Sodium Chloride 0.9% 100 ML IVPB SCH ×3 (04:20→21:00)
[2018-04-19 04:25] LABS: ARTERIAL BLOOD GAS HCO3 27.2 mmol/L (21-28); ARTERIAL BLOOD GAS O2 SAT 99.9 % (95-98); ARTERIAL BLOOD GAS PCO2 40 mm/Hg (35-45); ARTERIAL BLOOD GAS PH 7.44 (7.35-7.45); ARTERIAL BLOOD GAS PO2 136 mm/Hg (80-100); ARTERIAL BLOOD GAS TCO2 28.4 mmol/L (22-28)
[2018-04-19 05:57] LABS: MEAN CELL VOLUME 89.7 fL (80.0-94.0); MEAN CORPUSCULAR HEMOGLOBIN 29.2 pg (27.0-31.0); MEAN CORPUSCULAR HGB CONC 32.6 g/dL (33.0-37.0); MEAN PLATELET VOLUME 10.4 fL (7.2-11.7); PLATELET COUNT 306 K/uL (130-400); RBC 4.45 Mil/uL (4.40-5.90); WHITE BLOOD COUNT 22.2 K/uL (4.8-10.8)
[2018-04-19 06:22] LABS: ALB/GLOB RATIO 0.7 (1.0-2.1); ALBUMIN 2.6 g/dL (3.5-5.0); ALT/SGPT 89 U/L (21-72); AST/SGOT 96 U/L (17-59); BLOOD UREA NITROGEN 17 mg/dL (9-20); CALCIUM 7.6 mg/dl (8.6-10.4); GFR NON-AFRICAN AMERICAN > 60
[2018-04-19] MEDS: Midazolam 50 mg/10 ml 100 MG in Sodium Chloride 0.9% 80 ML IV SCH ×2 (07:45→20:30)
--- NOTE | 2018-04-19 08:12 | RAD ---
Chest x-ray single frontal view HISTORY: Ventilator. COMPARISON: 04/18/2018 FINDINGS: Lines and tubes in stable position. Persistent moderate loculated right and small left pleural effusion. Airspace consolidative opacities in the right mid to lower lung zone and left lung base. Cardiomegaly. Bilateral hilar prominence. Impression: No significant interval change.
[2018-04-19 08:46] LABS: NEUT # 21.8 K/uL (1.8-7.0)
[2018-04-19 08:47] LABS: LYMPH # 0.3 K/uL (1.0-4.3); MONO # 0.1 K/uL (0.0-0.8)
[2018-04-19 08:51] LABS: BANDS 17 % (0-2); LYMPHOCYTE 2 % (20-40); METAMYELOCYTE 1 % (0-0); MONOCYTE 1 % (0-10); NEUTROPHIL 79 % (50-75); PLATELET ESTIMATE NORMAL (NORMAL); TOTAL CELLS COUNTED 100
[2018-04-19 08:52] LABS: ANISOCYTOSIS SLIGHT; GIANT PLATELETS PRESENT; HYPOCHROMIC SLIGHT; LARGE PLATELETS PRESENT; POLYCHROMIC SLIGHT; TOXIC GRANULATION PRESENT
[2018-04-19] MEDS: Multiple Vitamins Tab PO SCH (09:11)
[2018-04-19] MEDS: Potassium Chloride 20 mEq/15 ml LIQ UD PO SCH ×2 (09:11→16:30)
[2018-04-19] MEDS: Lactobacillus Acidophilus 500 MU Cap PO SCH ×2 (09:11→17:55)
[2018-04-19] MEDS: Enoxaparin 40 mg Syringe SC SCH (09:12)
--- NOTE | 2018-04-19 09:46 | CP.PCM.PN ---
Subjective - Date & Time of Evaluation Date of Evaluation: 04/19/18 Time of Evaluation: 07:25 - Subjective Subjective: CT Surgery Pt seen and examine. Yesterday a chest tube was inserted to drain the reaccumulated empyema. Pt on propofol and precedex. still with increased FiO2 requirements. WBC sill elevated and febrile to 101.7. Objective - Vital Signs/Intake and Output Vital Signs (last 24 hours): Temp Pulse Resp BP Pulse Ox 97.6 F 76 31 H 96/62 L 96 04/19/18 05:00 04/19/18 06:37 04/19/18 06:37 04/19/18 06:37 04/19/18 06:37 Intake and Output: 04/19/18 04/19/18 06:59 18:59 Intake Total 2173.4 288.2 Output Total 1360 100 Balance 813.4 188.2 - Medications Medications: Current Medications Albuterol/Ipratropium (Duoneb 3 Mg/0.5 Mg (3 Ml) Ud) 3 ml INH RQ6 [facility] Last Admin: 04/19/18 08:10 Dose: 3 ml Docusate Sodium (Colace) 100 mg PO TID [facility] Last Admin: 04/19/18 09:11 Dose: 100 mg Enoxaparin Sodium (Lovenox) 40 mg SC DAILY [facility] Last Admin: 04/19/18 09:12 Dose: 40 mg Folic Acid (Folic Acid) 1 mg PO DAILY [facility] Last Admin: 04/19/18 09:11 Dose: 1 mg Furosemide (Lasix) 40 mg IVP Q12H [facility] Last Admin: 04/18/18 23:26 Dose: 40 mg Vancomycin HCl 1,250 mg/ (Sodium Chloride) 250 mls @ 125 mls/hr IVPB Q12H [facility]; Protocol Last Admin: 04/19/18 01:30 Dose: 125 mls/hr Propofol (Diprivan) 1,000 mg in 100 mls @ 2.79 mls/hr IV .Q24H PRN; Protocol PRN Reason: Agitation Last Admin: 04/19/18 09:10 Dose: 40 mcg/kg/min, 22.32 mls/hr Midazolam HCl 100 mg/ Sodium (Chloride) 100 mls @ 1.86 mls/hr IV .Q24H [facility]; Protocol Last Admin: 04/18/18 20:30 Dose: Not Given Meropenem 1 gm/ Sodium (Chloride) 100 mls @ 100 mls/hr IVPB Q8H [facility]; Protocol Last Admin: 04/19/18 04:20 Dose: 100 mls/hr Clindamycin Phosphate 900 mg/ (Sodium Chloride) 106 mls @ 100 mls/hr IV Q8H [facility]; Protocol Last Admin: 04/19/18 06:51 Dose: 100 mls/hr Dexmedetomidine HCl 200 mcg/ (Sodium Chloride) 50 mls @ 4.65 mls/hr IV TITR PRN; Protocol PRN Reason: Agitation Last Admin: 04/19/18 09:23 Dose: 0.9 mcg/kg/hr, 20.93 mls/hr Ibuprofen (Motrin Tab) 400 mg PO Q6H PRN PRN Reason: fever Lactobacillus Acidophilus (Bacid Acidophilus) 1 cap PO BID [facility] Last Admin: 04/19/18 09:11 Dose: 1 cap Multivitamins (Hexavitamin) 1 tab PO DAILY [facility] Last Admin: 04/19/18 09:11 Dose: 1 tab Pantoprazole Sodium (Protonix Inj) 40 mg IVP DAILY [facility] Last Admin: 04/19/18 09:11 Dose: 40 mg Potassium Chloride (Potassium Chloride Oral Soln) 60 meq PO DAILY [facility] Sennosides (Senokot Tab) 8.6 mg PO BID [facility] Last Admin: 04/19/18 09:11 Dose: 8.6 mg Thiamine HCl (Vitamin B1 Tab) 100 mg PO DAILY [facility] Last Admin: 04/19/18 09:11 Dose: 100 mg - Labs Labs: 04/19/18 05:50 04/19/18 05:50 PT 13.0 SECONDS (9.7-12.2) H 04/15/18 16:25 INR 1.2 04/15/18 16:25 APTT 35 SECONDS (21-34) H 04/15/18 16:25 - Constitutional Appears: Non-toxic, No Acute Distress - Head Exam Head Exam: ATRAUMATIC, NORMOCEPHALIC - Eye Exam Eye Exam: absent: Conjunctival injection, Scleral icterus - Respiratory Exam Respiratory Exam: absent: Respiratory Distress, NORMAL BREATHING PATTERN Additional comments: tachypnea on vent Chest tube in place, no air leak. dressing C/D/I - GI/Abdominal Exam GI & Abdominal Exam: Soft. absent: Distended, Tenderness - Extremities Exam Extremities Exam: Normal Capillary Refill. absent: Pedal Edema - Neurological Exam Neurological Exam: Altered (sedated) - Skin Skin Exam: Dry, Warm Assessment and Plan - Assessment and Plan (Free Text) Assessment: 43M w/ empyema, currently intubated and sedated, S/P chest tube insertion 04/18/18 Plan: Chest tube inserted yesterday, see procedure note below.Tolerated well. CT chest without contrast 04/20/18 to re-evaluate AM CXR stable Monitor for air leak Monitor drainage Continue abx D/W Dr. Susana Díaz PGY4 Chest Tube Insertion - Chest Tube Placement Indication: Other (Empyema) Consent Obtained: Written Procedural Sedation: Other: (propofol) Procedure Description: Prepped W/Betadine, Sterile Drape Applied, Local Anes Used: (2%lidocaine with EPI) Incision Completed And Tube Inserted At: 16:20 04/18/18 Post Insertion Procedure(s): Tube Sutured To Chest Wall, CXR Completed To Confirm Placement, Tube Connected To Suction (pleura vac with ~250cc post placement), No Air Leak Noted
[2018-04-19] MEDS ORDERED: Lidocaine 2% MPF (5 ml) Inj ONE (12:53)
[2018-04-19] MEDS ORDERED: EPINEPHrine 1 mg/ml (1:1000) Inj ONE (12:54)
--- NOTE | 2018-04-19 16:20 | PCM.PROC ---
Procedure - Procedure and Findings -: ETT exchange ETT found to be coated in dried mucous, had to exchange ETT over bougie. Bougie introduced through ETT. ETT balloon deflated and then ETT removed over bougie, leaving bougie in place. New ETT inserted over in place bougie, using saldinger type technique. ETT confirmed at lip line 23 cm, which was the previous position of old ETT. Placement confirmed with bronchoscopic visualization of hanny through the new ETT. Patient tolerated the procedure well. Critical Care time 10 minutes
--- NOTE | 2018-04-19 16:26 | PCM.PROC ---
Procedure - Procedure and Findings -: Bronchoscopy therapeutic and diagnostic Time out performed. Patient was sedated with propofol gtt, versed gtt, and precedex gtt. ETT was exchanged first due to copious dried mucous in ETT lumen. Copious mucous found in all major branches of RML and RLL lung. performed high volume bronchoalveolar lavage. Bronchi were extremely friable, with bleeding upon minimal contact. Because of this further and more aggressive exploration and suctioning was not performed. BAL samples sent off for culture. Patient tolerated procedure well, no immediate complications. Critical Care time 40 minutes.
--- NOTE | 2018-04-19 16:29 | CP.CCUPN ---
CCU Subjective - Physician Review Events Since Last Encounter (Free Text): 04/19/18 16:26 sedated on vent. CCU Objective - Vital Signs / Intake & Output Vital Signs (Last 4 hours): Vital Signs Temp Pulse Resp BP Pulse Ox 04/19/18 14:00 100 F H 99 H 31 H 91 L 04/19/18 13:39 98 H 37 H 89/31 L 92 L 04/19/18 13:32 95 H 23 100/71 91 L 04/19/18 13:15 97 H 41 H 97/60 L 99 04/19/18 13:00 103 H 33 H 98 04/19/18 12:40 107 H 32 H 94 L Intake and Output (Last 8hrs): Intake & Output 04/19/18 04/19/18 04/19/18 06:59 14:59 22:59 Intake Total 1520.6 1029.2 Output Total 860 610 Balance 660.6 419.2 Weight 219 lb 9.6 oz Intake: IV 350 500 Intake, IV Amount 840.6 289.2 Left Antecubital 35 Right Antecubital 178.4 133.8 Right Forearm 100 Right Hand 167.2 125.4 Right Upper arm 360 30 Tube Feeding 280 240 Other 50 Output: Urine 860 610 Urethral (Roman) 860 610 Oral Regurgitation 0 Other: # Bowel Movements 0 - Physical Exam Head: Positive for: Atraumatic, Normocephalic Pupils: Positive for: PERRL Extroacular Muscles: Positive for: EOMI Conjunctiva: Positive for: Normal Neck: Positive for: Normal Range of Motion Respiratory/Chest: Positive for: Decreased Breath Sounds (right middle and lower lobes ), Rales. Negative for: Respiratory Distress, Accessory Muscle Use Cardiovascular: Positive for: Regular Rate and Rhythm, Normal S1, S2 Abdomen: Positive for: Distention, Normal Bowel Sounds. Negative for: Tenderness Upper Extremity: Positive for: Normal Inspection. Negative for: Cyanosis, Edema Lower Extremity: Positive for: Normal Inspection. Negative for: Edema Neurological: Positive for: Other (unable to assess due to pts condition ) Skin: Positive for: Warm, Dry, Normal Color Psychiatric: Positive for: Other (sedated, not awake or oriented, not respond to verbal stimuli ) - Medications Active Medications: Active Medications Generic Name Dose Route Start Last Admin Trade Name Freq PRN Reason Stop Dose Admin Albuterol/Ipratropium 3 ml 04/15/18 08:00 04/19/18 13:51 Duoneb 3 Mg/0.5 Mg (3 Ml) Ud INH 3 ml RQ6 JESUS Administration Docusate Sodium 100 mg 04/14/18 18:30 04/19/18 09:11 Colace PO 100 mg TID JESUS Administration Enoxaparin Sodium 40 mg 04/14/18 10:00 04/19/18 09:12 Lovenox SC 40 mg DAILY JESUS Administration Folic Acid 1 mg 04/14/18 10:00 04/19/18 09:11 Folic Acid PO 1 mg DAILY JESUS Administration Furosemide 40 mg 04/17/18 11:00 04/19/18 12:14 Lasix IVP 40 mg Q12H JESUS Administration Vancomycin HCl 1,250 mg/ 250 mls @ 125 mls/hr 04/16/18 01:30 04/19/18 13:54 Sodium Chloride IVPB 125 mls/hr Q12H JESUS Administration Protocol Propofol 1,000 mg in 100 mls @ 2.79 mls/hr 04/15/18 21:20 04/19/18 14:22 Diprivan IV 40 mcg/kg/min .Q24H PRN 22.32 mls/hr Agitation Administration Protocol 5 MCG/KG/MIN Midazolam HCl 100 mg/ Sodium 100 mls @ 1.86 mls/hr 04/16/18 20:15 04/19/18 07:45 Chloride IV 0.05 mg/kg/hr .Q24H JESUS 4.65 mls/hr Administration Protocol 0.02 MG/KG/HR Meropenem 1 gm/ Sodium 100 mls @ 100 mls/hr 04/16/18 21:00 04/19/18 12:14 Chloride IVPB 100 mls/hr Q8H JESUS Administration Protocol Clindamycin Phosphate 900 mg/ 106 mls @ 100 mls/hr 04/16/18 23:30 04/19/18 06:51 Sodium Chloride IV 100 mls/hr Q8H JESUS Administration Protocol Dexmedetomidine HCl 200 mcg/ 50 mls @ 4.65 mls/hr 04/17/18 15:56 04/19/18 14:24 Sodium Chloride IV 0.9 mcg/kg/hr TITR PRN 20.93 mls/hr Agitation Administration Protocol 0.2 MCG/KG/HR Ibuprofen 400 mg 04/19/18 03:31 Motrin Tab PO Q6H PRN fever Lactobacillus Acidophilus 1 cap 04/14/18 18:45 04/19/18 09:11 Bacid Acidophilus PO 1 cap BID JESUS Administration Multivitamins 1 tab 04/14/18 10:00 04/19/18 09:11 Hexavitamin PO 1 tab DAILY JESUS Administration Pantoprazole Sodium 40 mg 04/14/18 10:00 04/19/18 09:11 Protonix Inj IVP 40 mg DAILY JESUS Administration Potassium Chloride 60 meq 04/19/18 09:34 Potassium Chloride Oral Soln PO DAILY JESUS Sennosides 8.6 mg 04/14/18 00:15 04/19/18 09:11 Senokot Tab PO 8.6 mg BID JESUS Administration Thiamine HCl 100 mg 04/14/18 10:00 04/19/18 09:11 Vitamin B1 Tab PO 100 mg DAILY JESUS Administration - Patient Studies Lab Studies: Microbiology Studies 04/18/18 17:49 Gram Stain - Preliminary Pleural Fluid Body Fluid Culture - Preliminary NO GROWTH AFTER 24 HOURS 04/15/18 13:49 Gram Stain - Final Thoracic Fluid Body Fluid Culture - Final NO GROWTH AFTER 4 DAYS 04/17/18 01:07 Gram Stain - Final Trachasp Sputum Culture - Final No growth. 04/13/18 21:43 Blood Culture - Final Blood NO GROWTH AFTER 5 DAYS Gram Stain - Final TEST NOT PERFORMED 04/13/18 21:00 Blood Culture - Final Blood NO GROWTH AFTER 5 DAYS Gram Stain - Final TEST NOT PERFORMED Lab Studies 04/19/18 04/19/18 04/19/18 Range/Units 11:51 05:50 05:50 WBC 22.2 H (4.8-10.8) K/uL RBC 4.45 (4.40-5.90) Mil/uL Hgb 13.0 (12.0-18.0) g/dL Hct 39.9 (35.0-51.0) % MCV 89.7 (80.0-94.0) fL MCH 29.2 (27.0-31.0) pg MCHC 32.6 L (33.0-37.0) g/dL RDW 15.0 H (11.5-14.5) % Plt Count 306 (130-400) K/uL MPV 10.4 (7.2-11.7) fL Neut % (Auto) 97.0 H (50.0-75.0) % Lymph % (Auto) 2.0 L (20.0-40.0) % [place] % (Auto) 1.0 (0.0-10.0) % Eos % (Auto) 0.0 (0.0-4.0) % Baso % (Auto) 0.0 (0.0-2.0) % Neut # (Auto) 21.8 H (1.8-7.0) K/uL Lymph # (Auto) 0.3 L (1.0-4.3) K/uL [place] # (Auto) 0.1 (0.0-0.8) K/uL Eos # (Auto) 0.0 (0.0-0.7) K/uL Baso # (Auto) 0.0 (0.0-0.2) K/uL Neutrophils % (Manual) 79 H (50-75) % Band Neutrophils % 17 H* (0-2) % Lymphocytes % (Manual) 2 L (20-40) % Monocytes % (Manual) 1 (0-10) % Metamyelocytes % 1 H (0-0) % Toxic Granulation Present Platelet Estimate Normal (NORMAL) Large Platelets Present Giant Platelets Present Polychromasia Slight Hypochromasia (manual) Slight Anisocytosis (manual) Slight Puncture Site pCO2 (35-45) mm/Hg pO2 (80-100) mm/Hg HCO3 (21-28) mmol/L ABG pH (7.35-7.45) ABG Total CO2 (22-28) mmol/L ABG O2 Saturation (95-98) % ABG Base Excess (-2.0-3.0) mmol/L [place] Test ABG Potassium (3.6-5.2) mmol/L A-a O2 Difference mm/Hg Respiratory Index Sodium 139 (132-148) mmol/l Chloride 105 (98-107) mmol/L Glucose (75-110) mg/dl Lactate (0.7-2.1) mmol/L Vent Mode Mechanical Rate FiO2 % Tidal Volume PEEP Potassium 3.4 L (3.6-5.2) mmol/L Carbon Dioxide 27 (22-30) mmol/L Anion Gap 11 (10-20) BUN 17 (9-20) mg/dL Creatinine 0.6 L (0.8-1.5) mg/dL Est GFR ( Amer) > 60 Est GFR (Non-Af Amer) > 60 POC Glucose (mg/dL) 127 H (65-110) mg/dL Random Glucose 107 (75-110) mg/dL Calcium 7.6 L (8.6-10.4) mg/dl Phosphorus 4.9 H (2.5-4.5) mg/dL Magnesium 2.0 (1.6-2.3) mg/dL Total Bilirubin 1.2 (0.2-1.3) mg/dL AST 96 H D (17-59) U/L ALT 89 H D (21-72) U/L Alkaline Phosphatase 284 H (38-126) U/L Total Protein 6.2 L (6.3-8.3) g/dL Albumin 2.6 L (3.5-5.0) g/dL Globulin 3.6 (2.2-3.9) gm/dL Albumin/Globulin Ratio 0.7 L (1.0-2.1) Arterial Blood Potassium (3.6-5.2) mmol/L Fluid Source Fluid Appearance (CLEAR) Fluid WBC (0.0-300.0) /mm3 Fluid RBC (0.0-0.0) /mm3 Fluid Tot Cell Count (0-0) Fluid Neutrophils (0-0) % Fluid Lymphocytes (0-0) % Fld Monocyte/Macrophag (0-0) % Fluid Comment Mycoplasma pneumon IgG (<=0.90) Mycoplasma pneumon IgM (<770) U/mL 04/19/18 04/19/18 04/18/18 Range/Units 04:41 04:15 23:40 WBC (4.8-10.8) K/uL RBC (4.40-5.90) Mil/uL Hgb (12.0-18.0) g/dL Hct (35.0-51.0) % MCV (80.0-94.0) fL MCH (27.0-31.0) pg MCHC (33.0-37.0) g/dL RDW (11.5-14.5) % Plt Count (130-400) K/uL MPV (7.2-11.7) fL Neut % (Auto) (50.0-75.0) % Lymph % (Auto) (20.0-40.0) % [place] % (Auto) (0.0-10.0) % Eos % (Auto) (0.0-4.0) % Baso % (Auto) (0.0-2.0) % Neut # (Auto) (1.8-7.0) K/uL Lymph # (Auto) (1.0-4.3) K/uL [place] # (Auto) (0.0-0.8) K/uL Eos # (Auto) (0.0-0.7) K/uL Baso # (Auto) (0.0-0.2) K/uL Neutrophils % (Manual) (50-75) % Band Neutrophils % (0-2) % Lymphocytes % (Manual) (20-40) % Monocytes % (Manual) (0-10) % Metamyelocytes % (0-0) % Toxic Granulation Platelet Estimate (NORMAL) Large Platelets Giant Platelets Polychromasia Hypochromasia (manual) Anisocytosis (manual) Puncture Site Lb pCO2 40 (35-45) mm/Hg pO2 136 H (80-100) mm/Hg HCO3 27.2 (21-28) mmol/L ABG pH 7.44 (7.35-7.45) ABG Total CO2 28.4 H (22-28) mmol/L ABG O2 Saturation 99.9 H (95-98) % ABG Base Excess 2.8 (-2.0-3.0) mmol/L [place] Test Na ABG Potassium 3.0 L (3.6-5.2) mmol/L A-a O2 Difference 384.0 mm/Hg Respiratory Index 2.8 Sodium 142.0 (132-148) mmol/l Chloride 109.0 H (98-107) mmol/L Glucose 113 H (75-110) mg/dl Lactate 1.1 (0.7-2.1) mmol/L Vent Mode Prvc Mechanical Rate 14 FiO2 80.0 % Tidal Volume 400 PEEP 10 Potassium (3.6-5.2) mmol/L Carbon Dioxide (22-30) mmol/L Anion Gap (10-20) BUN (9-20) mg/dL Creatinine (0.8-1.5) mg/dL Est GFR ( Amer) Est GFR (Non-Af Amer) POC Glucose (mg/dL) 136 H 120 H (65-110) mg/dL Random Glucose (75-110) mg/dL Calcium (8.6-10.4) mg/dl Phosphorus (2.5-4.5) mg/dL Magnesium (1.6-2.3) mg/dL Total Bilirubin (0.2-1.3) mg/dL AST (17-59) U/L ALT (21-72) U/L Alkaline Phosphatase (38-126) U/L Total Protein (6.3-8.3) g/dL Albumin (3.5-5.0) g/dL Globulin (2.2-3.9) gm/dL Albumin/Globulin Ratio (1.0-2.1) Arterial Blood Potassium 3.0 L (3.6-5.2) mmol/L Fluid Source Fluid Appearance (CLEAR) Fluid WBC (0.0-300.0) /mm3 Fluid RBC (0.0-0.0) /mm3 Fluid Tot Cell Count (0-0) Fluid Neutrophils (0-0) % Fluid Lymphocytes (0-0) % Fld Monocyte/Macrophag (0-0) % Fluid Comment Mycoplasma pneumon IgG (<=0.90) Mycoplasma pneumon IgM (<770) U/mL 04/18/18 04/18/18 04/15/18 Range/Units 17:57 17:49 05:49 WBC (4.8-10.8) K/uL RBC (4.40-5.90) Mil/uL Hgb (12.0-18.0) g/dL Hct (35.0-51.0) % MCV (80.0-94.0) fL MCH (27.0-31.0) pg MCHC (33.0-37.0) g/dL RDW (11.5-14.5) % Plt Count (130-400) K/uL MPV (7.2-11.7) fL Neut % (Auto) (50.0-75.0) % Lymph % (Auto) (20.0-40.0) % [place] % (Auto) (0.0-10.0) % Eos % (Auto) (0.0-4.0) % Baso % (Auto) (0.0-2.0) % Neut # (Auto) (1.8-7.0) K/uL Lymph # (Auto) (1.0-4.3) K/uL [place] # (Auto) (0.0-0.8) K/uL Eos # (Auto) (0.0-0.7) K/uL Baso # (Auto) (0.0-0.2) K/uL Neutrophils % (Manual) (50-75) % Band Neutrophils % (0-2) % Lymphocytes % (Manual) (20-40) % Monocytes % (Manual) (0-10) % Metamyelocytes % (0-0) % Toxic Granulation Platelet Estimate (NORMAL) Large Platelets Giant Platelets Polychromasia Hypochromasia (manual) Anisocytosis (manual) Puncture Site pCO2 (35-45) mm/Hg pO2 (80-100) mm/Hg HCO3 (21-28) mmol/L ABG pH (7.35-7.45) ABG Total CO2 (22-28) mmol/L ABG O2 Saturation (95-98) % ABG Base Excess (-2.0-3.0) mmol/L [place] Test ABG Potassium (3.6-5.2) mmol/L A-a O2 Difference mm/Hg Respiratory Index Sodium (132-148) mmol/l Chloride (98-107) mmol/L Glucose (75-110) mg/dl Lactate (0.7-2.1) mmol/L Vent Mode Mechanical Rate FiO2 % Tidal Volume PEEP Potassium (3.6-5.2) mmol/L Carbon Dioxide (22-30) mmol/L Anion Gap (10-20) BUN (9-20) mg/dL Creatinine (0.8-1.5) mg/dL Est GFR ( Amer) Est GFR (Non-Af Amer) POC Glucose (mg/dL) 115 H (65-110) mg/dL Random Glucose (75-110) mg/dL Calcium (8.6-10.4) mg/dl Phosphorus (2.5-4.5) mg/dL Magnesium (1.6-2.3) mg/dL Total Bilirubin (0.2-1.3) mg/dL AST (17-59) U/L ALT (21-72) U/L Alkaline Phosphatase (38-126) U/L Total Protein (6.3-8.3) g/dL Albumin (3.5-5.0) g/dL Globulin (2.2-3.9) gm/dL Albumin/Globulin Ratio (1.0-2.1) Arterial Blood Potassium (3.6-5.2) mmol/L Fluid Source Pleural Fluid Appearance Bloody (CLEAR) Fluid WBC 5700.0 H (0.0-300.0) /mm3 Fluid RBC 785131.0 H (0.0-0.0) /mm3 Fluid Tot Cell Count 100 H (0-0) Fluid Neutrophils 93.0 H (0-0) % Fluid Lymphocytes 4.0 H (0-0) % Fld Monocyte/Macrophag 3 H (0-0) % Fluid Comment Bloody Mycoplasma pneumon IgG <=0.90 (<=0.90) Mycoplasma pneumon IgM 204 (<770) U/mL Laboratory Results - last 24 hr 04/15/18 04/18/18 04/18/18 05:49 17:49 17:57 WBC RBC Hgb Hct MCV MCH MCHC RDW Plt Count MPV Neut % (Auto) Lymph % (Auto) [place] % (Auto) Eos % (Auto) Baso % (Auto) Neut # (Auto) Lymph # (Auto) [place] # (Auto) Eos # (Auto) Baso # (Auto) Neutrophils % (Manual) Band Neutrophils % Lymphocytes % (Manual) Monocytes % (Manual) Metamyelocytes % Toxic Granulation Platelet Estimate Large Platelets Giant Platelets Polychromasia Hypochromasia (manual) Anisocytosis (manual) Puncture Site pCO2 pO2 HCO3 ABG pH ABG Total CO2 ABG O2 Saturation ABG Base Excess [place] Test ABG Potassium A-a O2 Difference Respiratory Index Sodium Chloride Glucose Lactate Vent Mode Mechanical Rate FiO2 Tidal Volume PEEP Potassium Carbon Dioxide Anion Gap BUN Creatinine Est GFR ( Amer) Est GFR (Non-Af Amer) POC Glucose (mg/dL) 115 H Random Glucose Calcium Phosphorus Magnesium Total Bilirubin AST ALT Alkaline Phosphatase Total Protein Albumin Globulin Albumin/Globulin Ratio Arterial Blood Potassium Fluid Source Pleural Fluid Appearance Bloody Fluid WBC 5700.0 H Fluid RBC 963552.0 H Fluid Tot Cell Count 100 H Fluid Neutrophils 93.0 H Fluid Lymphocytes 4.0 H Fld Monocyte/Macrophag 3 H Fluid Comment Bloody Mycoplasma pneumon IgG <=0.90 Mycoplasma pneumon IgM 204 04/18/18 04/19/18 04/19/18 23:40 04:15 04:41 WBC RBC Hgb Hct MCV MCH MCHC RDW Plt Count MPV Neut % (Auto) Lymph % (Auto) [place] % (Auto) Eos % (Auto) Baso % (Auto) Neut # (Auto) Lymph # (Auto) [place] # (Auto) Eos # (Auto) Baso # (Auto) Neutrophils % (Manual) Band Neutrophils % Lymphocytes % (Manual) Monocytes % (Manual) Metamyelocytes % Toxic Granulation Platelet Estimate Large Platelets Giant Platelets Polychromasia Hypochromasia (manual) Anisocytosis (manual) Puncture Site Lb pCO2 40 pO2 136 H HCO3 27.2 ABG pH 7.44 ABG Total CO2 28.4 H ABG O2 Saturation 99.9 H ABG Base Excess 2.8 [place] Test Na ABG Potassium 3.0 L A-a O2 Difference 384.0 Respiratory Index 2.8 Sodium 142.0 Chloride 109.0 H Glucose 113 H Lactate 1.1 Vent Mode Prvc Mechanical Rate 14 FiO2 80.0 Tidal Volume 400 PEEP 10 Potassium Carbon Dioxide Anion Gap BUN Creatinine Est GFR ( Amer) Est GFR (Non-Af Amer) POC Glucose (mg/dL) 120 H 136 H Random Glucose Calcium Phosphorus Magnesium Total Bilirubin AST ALT Alkaline Phosphatase Total Protein Albumin Globulin Albumin/Globulin Ratio Arterial Blood Potassium 3.0 L Fluid Source Fluid Appearance Fluid WBC Fluid RBC Fluid Tot Cell Count Fluid Neutrophils Fluid Lymphocytes Fld Monocyte/Macrophag Fluid Comment Mycoplasma pneumon IgG Mycoplasma pneumon IgM 04/19/18 04/19/18 04/19/18 05:50 05:50 11:51 WBC 22.2 H RBC 4.45 Hgb 13.0 Hct 39.9 MCV 89.7 MCH 29.2 MCHC 32.6 L RDW 15.0 H Plt Count 306 MPV 10.4 Neut % (Auto) 97.0 H Lymph % (Auto) 2.0 L [place] % (Auto) 1.0 Eos % (Auto) 0.0 Baso % (Auto) 0.0 Neut # (Auto) 21.8 H Lymph # (Auto) 0.3 L [place] # (Auto) 0.1 Eos # (Auto) 0.0 Baso # (Auto) 0.0 Neutrophils % (Manual) 79 H Band Neutrophils % 17 H* Lymphocytes % (Manual) 2 L Monocytes % (Manual) 1 Metamyelocytes % 1 H Toxic Granulation Present Platelet Estimate Normal Large Platelets Present Giant Platelets Present Polychromasia Slight Hypochromasia (manual) Slight Anisocytosis (manual) Slight Puncture Site pCO2 pO2 HCO3 ABG pH ABG Total CO2 ABG O2 Saturation ABG Base Excess [place] Test ABG Potassium A-a O2 Difference Respiratory Index Sodium 139 Chloride 105 Glucose Lactate Vent Mode Mechanical Rate FiO2 Tidal Volume PEEP Potassium 3.4 L Carbon Dioxide 27 Anion Gap 11 BUN 17 Creatinine 0.6 L Est GFR ( Amer) > 60 Est GFR (Non-Af Amer) > 60 POC Glucose (mg/dL) 127 H Random Glucose 107 Calcium 7.6 L Phosphorus 4.9 H Magnesium 2.0 Total Bilirubin 1.2 AST 96 H D ALT 89 H D Alkaline Phosphatase 284 H Total Protein 6.2 L Albumin 2.6 L Globulin 3.6 Albumin/Globulin Ratio 0.7 L Arterial Blood Potassium Fluid Source Fluid Appearance Fluid WBC Fluid RBC Fluid Tot Cell Count Fluid Neutrophils Fluid Lymphocytes Fld Monocyte/Macrophag Fluid Comment Mycoplasma pneumon IgG Mycoplasma pneumon IgM Radiology Impressions: Radiology Impressions Chest X-Ray 04/18/18 16:16 Impression: Interval insertion of a right chest tube with interval decrease of a now small to moderate right pleural effusion. Consolidative changes seen throughout the right lung. Additional consolidative changes in the left infrahilar region. Chest X-Ray 04/19/18 07:00 Impression: No significant interval change. Review of Systems - Review of Systems Systems not reviewed;Unavailable: Intubated Critical Care Progress Note - Nutrition Nutrition: Nutrition Category Date Time Status NPO Diet [DIET] Diets 04/16/18 Breakfast Active Assessment/Plan (1) Community acquired pneumonia Assessment and plan: 43yo M. PMHx of alcohol abuse. p/w abdominal pain secondary to constipation and community acquired pneumonia. Thoracentesis (05/16), empyema. Intubated for worsening respiratory failure with hypoxia and delirium tremens (05/16). Chest tube placed (04/18). Bronchoscopy (04/19). Neuro: sedated with versed gtt, propofol gtt, and precedex gtt. Pulm: acute respiratory failure with hypoxia secondary to CAP with empyema. Chest tube draining initially purulent material ~400 ml, now serosanguinous. Therapeutic and Diagnostic Bronchoscopy performed today. Copious mucous suctioned out, distal branches not accessible secondary to excessively friable mucosa. CV: hemodynamically stable. Hem: leucocytosis from sepsis Renal: diuresing for hypervolemia with lasix. hypokalemia secondary to lasix, supplemented. Endo: no acute issues GI: NPO, Jevity@40 ID: severe sepsis from CAP with empyema, continue meropenem, Vancomycin and clindamycin. DVT proph - lovenox GI proph - protonix roman for strict I/O's during acute illness Code status - full code Critical Care Time spent 35 minutes Multi-disciplinary rounds were performed with house staff, nursing, speech therapy, respiratory therapy, pharmacy and nutrition with integrated input from the primary team/attending and other consulting services. The documented time is cumulative and includes review of patient data/exams/labs/chart review and examination of the patient on rounds and throughout the day; time is exclusive of any procedures or teaching time. Current Visit: Yes Status: Acute
--- NOTE | 2018-04-19 20:25 | CP.PCM.PN ---
Subjective - Date & Time of Evaluation Date of Evaluation: 04/19/18 Time of Evaluation: 19:45 - Subjective Subjective: Hospitalist Progress Note Patient was seen and examined at 7:00 PM 04/19/18 43 year old male who was admitted on 04/13/18 for evaluation of RLQ abdominal pain with subjective fevers/chills and complaints of nausea and constipation. He was found to have a RML and RLL Pneumonia. He had bedside Thoracentesis on 04/15/18 and roughly 1 liter of purulent material was collected suspicious for empyema. Cardiothoracic Surgery was consulted for placement of Chest Tube however on evening 04/15/18 patient started to have DTs and in light of the already concerning respiratory status, he was intubated. Please see Assessment and Plans below for further details. Due to agitation on night of 04/17/18, patient had to be placed on Precedex and Propofol in addition to the Versed that he was on. As CT Angio Chest 04/17/18 indicated worsening of right sided pleural effusion, Right Chest Tube was placed by Surgery Team 04/18/18 and pleural fluid was sent for culture which is negative to date. ETT was replaced by ICU Team and Bronchoscopy with Bronchial Washing was performed. Bronchial Washing 04/19/17 culture are pending at this time. Chest X Ray 04/19/18: persistent moderate loculated right and small left pleural effusion, cardiomegaly, bilateral hilar prominence Upon ROS: NOT possible as he is intubated and on vent General:intubated and on vent HEENT: NCA, Pupils are pinpoint/equal/reactive to light, NO lymphadenopathy, NO thyromegaly Cardio: NS1 and NS2, NO M/R/G Resp: Course breath sounds diffusely GI: BSx4, Soft, Central Obesity Ext: NO edema, Capillary Refill is 2 seconds, Pulses are strong and equal Neuro: NOT possible Assessments: 1). Sepsis Secondary to Right Middle and Lower Lobe Pneumonia and Suspected Empyema As seen on CT Chest Suspect possible aspiration due to the history of alcohol use (see below) Azithromycin and Rocephin were discontinued on 04/15/18 Zosyn 3.375 gm IV Q6H (04/15/18 through 04/16/18) Tamiflu 75 mg PO 2x/day (04/14/18 through 04/19/18) Clindamycin 600 mg IV Q8H (04/15/18) Vancomycin 1.25 gm IV Q12H (04/15/18) Meropenem 1 gm IV Q8H (04/16/18) Blood Culture 04/13/18: is negative to date CT Chest 04/15/18: extensive consolidation throughout the right hemithorax with relative sparing of the right lung apex, small loculated effusion measures 2.[address] Angio Chest 04/17/18: NO PE, interval worsening of airspace consolidation at the right lung, interval worsening of right sided multiple likely localized foci of pleural effusion, the possibility of right sided empyema should be excluded ID Dr. Spring Cardiothoracic Surgery Dr. Meza: Chest tube placed 04/18/18 and pleural fluid cu lture will have to be followed up 2). Respiratory Distress Patient was intubated and placed on vent on evening 04/15/18 after he started to have DTs Currently on Versed, Propofol and Precedex 3). Alcohol Withdrawl Currently on Versed, Propofol and Precedex 4). Bilateral Perinephric Stranding As seen on CT Abdomen/Pelvis On exam 04/14/18 and 04/15/18 there was NO CVA tenderness UA shows NEGATIVE Nitrate, Ketones, and LE Doubt that this is Pyelonephritis as Urine Culture is negative 5). Alcohol Abuse Patient revealed 04/14/18 that he drank shots and multiple beers twice a week but told overnight team at time of admission that he did this 5x per week. Last drink was this past Friday04/10/18 as per patient 6). Hyponatremia Likely SIADH TSH and T4 are normal Morning Cortisol normal Triglycerides normal Urine Osm was high Urine Na was 35 7). Tachycardia Could this be secondary to the ongoing fever secondary to the pneumonia? EKG shows Sinus Tachycardia Tylenol 650 mg OGT Q4H PRN Fever 8). Elevated LFTs and Hepatic Parenchymal Disease (as seen CT Abdomen) Likely secondary to suspected alcohol abuse Hepatitis Panel negative HIV negative UDS negative 9). Hypokalemia ICU Team repleted 10). Hypomagnesemia Repleted with IV Magnesium Sulfate 04/14/18 11). Constipation As seen on Obstruction Series Senokot Colace 100 mg PO 3x/day Had bowel movement 04/15/18 12). Prophylaxis DVT risk score of 2 based upon Age and diagnosis of Sepsis: Heparin 5,000 Units SC Q8H and Bilateral SCDs As patient was intubated 04/15/18, Protonix 40 mg IV 1x/day Jevity via OGT started at 20 ml/hr with goal of 45 ml/hr Lactobacillus PO 2x/day 04/16/18: Mary was at bedside and he she was updated on patient's recent developements and status with the help of ICU residen Dr. Severino Tate 04/17/18: Two Sisters, Cousin, Nephew were at bedside and he she was updated on patient's recent developements and status with the help of ICU residen Dr. Severino Tate 04/18/18: with the help of brother in law Carson (who speaks Citizen Of [place]) family members included Mary, were udated as to patient status 04/19/18: Two Sisters at the bedside were updated with the help of PATRICIA Moreno who translated Citizen Of [place] Franki Nguyen D.O. Objective - Vital Signs/Intake and Output Vital Signs (last 24 hours): Temp Pulse Resp BP Pulse Ox 98.9 F 86 40 H 104/66 95 04/19/18 18:00 04/19/18 18:00 04/19/18 18:00 04/19/18 17:57 04/19/18 18:00 Intake and Output: 04/19/18 04/20/18 18:59 06:59 Intake Total 2215.0 88.8 Output Total 1390 Balance 825.0 88.8 - Medications Medications: Current Medications Albuterol/Ipratropium (Duoneb 3 Mg/0.5 Mg (3 Ml) Ud) 3 ml INH RQ6 [facility] Last Admin: 04/19/18 20:01 Dose: 3 ml Docusate Sodium (Colace) 100 mg PO TID [facility] Last Admin: 04/19/18 17:56 Dose: 100 mg Enoxaparin Sodium (Lovenox) 40 mg SC DAILY [facility] Last Admin: 04/19/18 09:12 Dose: 40 mg Folic Acid (Folic Acid) 1 mg PO DAILY [facility] Last Admin: 04/19/18 09:11 Dose: 1 mg Furosemide (Lasix) 40 mg IVP Q12H [facility] Last Admin: 04/19/18 12:14 Dose: 40 mg Vancomycin HCl 1,250 mg/ (Sodium Chloride) 250 mls @ 125 mls/hr IVPB Q12H [facility]; Protocol Last Admin: 04/19/18 13:54 Dose: 125 mls/hr Propofol (Diprivan) 1,000 mg in 100 mls @ 2.79 mls/hr IV .Q24H PRN; Protocol PRN Reason: Agitation Last Admin: 04/19/18 17:04 Dose: 40 mcg/kg/min, 22.32 mls/hr Midazolam HCl 100 mg/ Sodium (Chloride) 100 mls @ 1.86 mls/hr IV .Q24H [facility]; Protocol Last Admin: 04/19/18 07:45 Dose: 0.05 mg/kg/hr, 4.65 mls/hr Meropenem 1 gm/ Sodium (Chloride) 100 mls @ 100 mls/hr IVPB Q8H JESSU; Protocol Last Admin: 04/19/18 12:14 Dose: 100 mls/hr Clindamycin Phosphate 900 mg/ (Sodium Chloride) 106 mls @ 100 mls/hr IV Q8H [facility]; Protocol Last Admin: 04/19/18 15:30 Dose: 100 mls/hr Dexmedetomidine HCl 200 mcg/ (Sodium Chloride) 50 mls @ 4.65 mls/hr IV TITR PRN; Protocol PRN Reason: Agitation Last Admin: 04/19/18 18:55 Dose: 0.9 mcg/kg/hr, 20.93 mls/hr Ibuprofen (Motrin Tab) 400 mg PO Q6H PRN PRN Reason: fever Lactobacillus Acidophilus (Bacid Acidophilus) 1 cap PO BID [facility] Last Admin: 04/19/18 17:55 Dose: 1 cap Multivitamins (Hexavitamin) 1 tab PO DAILY [facility] Last Admin: 04/19/18 09:11 Dose: 1 tab Pantoprazole Sodium (Protonix Inj) 40 mg IVP DAILY [facility] Last Admin: 04/19/18 09:11 Dose: 40 mg Potassium Chloride (Potassium Chloride Oral Soln) 60 meq PO DAILY [facility] Last Admin: 04/19/18 16:30 Dose: 20 meq Sennosides (Senokot Tab) 8.6 mg PO BID [facility] Last Admin: 04/19/18 17:04 Dose: 8.6 mg Thiamine HCl (Vitamin B1 Tab) 100 mg PO DAILY [facility] Last Admin: 04/19/18 09:11 Dose: 100 mg - Labs Labs: 04/19/18 05:50 04/19/18 05:50 PT 13.0 SECONDS (9.7-12.2) H 04/15/18 16:25 INR 1.2 04/15/18 16:25 APTT 35 SECONDS (21-34) H 04/15/18 16:25
--- NOTE | 2018-04-19 22:14 | CP.PCM.PN ---
Subjective - Date & Time of Evaluation Date of Evaluation: 04/19/18 Time of Evaluation: 19:00 - Subjective Subjective: dictated Objective - Vital Signs/Intake and Output Vital Signs (last 24 hours): Temp Pulse Resp BP Pulse Ox 98.9 F 86 40 H 104/66 95 04/19/18 18:00 04/19/18 18:00 04/19/18 18:00 04/19/18 17:57 04/19/18 18:00 Intake and Output: 04/19/18 04/20/18 18:59 06:59 Intake Total 2215.0 238.8 Output Total 1390 Balance 825.0 238.8 - Medications Medications: Current Medications Albuterol/Ipratropium (Duoneb 3 Mg/0.5 Mg (3 Ml) Ud) 3 ml INH RQ6 [facility] Last Admin: 04/19/18 20:01 Dose: 3 ml Docusate Sodium (Colace) 100 mg PO TID [facility] Last Admin: 04/19/18 17:56 Dose: 100 mg Enoxaparin Sodium (Lovenox) 40 mg SC DAILY [facility] Last Admin: 04/19/18 09:12 Dose: 40 mg Folic Acid (Folic Acid) 1 mg PO DAILY [facility] Last Admin: 04/19/18 09:11 Dose: 1 mg Furosemide (Lasix) 40 mg IVP Q12H [facility] Last Admin: 04/19/18 12:14 Dose: 40 mg Vancomycin HCl 1,250 mg/ (Sodium Chloride) 250 mls @ 125 mls/hr IVPB Q12H [facility]; Protocol Last Admin: 04/19/18 13:54 Dose: 125 mls/hr Propofol (Diprivan) 1,000 mg in 100 mls @ 2.79 mls/hr IV .Q24H PRN; Protocol PRN Reason: Agitation Last Admin: 04/19/18 21:50 Dose: 40 mcg/kg/min, 22.32 mls/hr Midazolam HCl 100 mg/ Sodium (Chloride) 100 mls @ 1.86 mls/hr IV .Q24H [facility]; Protocol Last Admin: 04/19/18 07:45 Dose: 0.05 mg/kg/hr, 4.65 mls/hr Meropenem 1 gm/ Sodium (Chloride) 100 mls @ 100 mls/hr IVPB Q8H [facility]; Protocol Last Admin: 04/19/18 12:14 Dose: 100 mls/hr Clindamycin Phosphate 900 mg/ (Sodium Chloride) 106 mls @ 100 mls/hr IV Q8H [facility]US; Protocol Last Admin: 04/19/18 15:30 Dose: 100 mls/hr Dexmedetomidine HCl 200 mcg/ (Sodium Chloride) 50 mls @ 4.65 mls/hr IV TITR PRN; Protocol PRN Reason: Agitation Last Admin: 04/19/18 21:56 Dose: 0.9 mcg/kg/hr, 20.93 mls/hr Fentanyl Citrate 2,500 mcg/ (Sodium Chloride) 250 mls @ 19.92 mls/hr IV .[id number] JESUS; Protocol Ibuprofen (Motrin Tab) 400 mg PO Q6H PRN PRN Reason: fever Lactobacillus Acidophilus (Bacid Acidophilus) 1 cap PO BID [facility] Last Admin: 04/19/18 17:55 Dose: 1 cap Multivitamins (Hexavitamin) 1 tab PO DAILY [facility] Last Admin: 04/19/18 09:11 Dose: 1 tab Pantoprazole Sodium (Protonix Inj) 40 mg IVP DAILY [facility] Last Admin: 04/19/18 09:11 Dose: 40 mg Potassium Chloride (Potassium Chloride Oral Soln) 60 meq PO DAILY [facility] Last Admin: 04/19/18 16:30 Dose: 20 meq Sennosides (Senokot Tab) 8.6 mg PO BID [facility] Last Admin: 04/19/18 17:04 Dose: 8.6 mg Thiamine HCl (Vitamin B1 Tab) 100 mg PO DAILY [facility] Last Admin: 04/19/18 09:11 Dose: 100 mg - Labs Labs: 04/19/18 05:50 04/19/18 05:50 PT 13.0 SECONDS (9.7-12.2) H 04/15/18 16:25 INR 1.2 04/15/18 16:25 APTT 35 SECONDS (21-34) H 04/15/18 16:25
[2018-04-20] MEDS: Dexmedetomidine Hydrochloride 200 MCG in Sodium Chloride 0.9% 48 ML IV PRN ×7 (00:20→23:33)
[2018-04-20] MEDS: Albuterol-Ipratrop 3 mg / 0.5 (3 ml) UD INH SCH ×4 (01:19→19:38)
--- NOTE | 2018-04-20 02:56 | PN ---
DATE: 04/19/2018 SUBJECTIVE: The patient remains intubated. He is still dyspneic even though he is on the ventilator and he is on PEEP. His family is at the bedside. The patient had a chest tube placed in yesterday, and his vitals are noted. PHYSICAL EXAMINATION: VITAL SIGNS: Show that his temperature,he had a high of 100 today, so his temp is better, pulse is 87, blood pressure 103/61, his respiratory rate is 43 at this time, and saturation remains 95%. He is sedated. NECK: Supple. LUNGS: Decreased breath sounds bilaterally. HEART: S1 and S2 are regular. ABDOMEN: Soft, nontender. EXTREMITIES: Have no edema. He has a chest tube. LABORATORY DATA: His white count went up today to 22.2, yesterday it was 21.6, neutrophils are 97, and bands 17, so they are increased. Chemistry shows BUN is 17, creatinine 0.6. His drug screen was negative. ASSESSMENT AND PLAN: Pleural fluid was done on 04/18/2018 shows 57 wbc's and mostly rbc's this time, probably trauma of the tube insertion, total cells are 100 with 93% are neutrophils, 4 are lymphocytes, and 3 are eosinophils. It is probably consistent with exudate. We are considering empyema in this patient. Urinalysis shows 2+ protein, 1+ bilirubin. Drugs that he is on: He is on albuterol. He is on clindamycin and he is on lactobacillus, meropenem, and vancomycin. He is getting 1250 mg every 12 hours at this time, so we will continue the same at this time, awaiting the culture report and we will follow. We did a flu swab which was negative. Mycoplasma was negative. Hepatitis was negative. We will also send for the flu, but now it seems like he has empyema, so I do not think that will help. We will wait for the culture reports of the body fluid, but we had done that before also and it was negative. He has low-grade temperature at this time. Continue present treatment. Renea Spring MD
[2018-04-20] MEDS: Propofol 10 mg/ml 1,000 MG/100 ML VIAL IV PRN ×7 (03:10→23:34)
[2018-04-20 04:49] LABS: ARTERIAL BLOOD GAS HCO3 25.5 mmol/L (21-28); ARTERIAL BLOOD GAS O2 SAT 89.1 % (95-98); ARTERIAL BLOOD GAS PCO2 50 mm/Hg (35-45); ARTERIAL BLOOD GAS PH 7.35 (7.35-7.45); ARTERIAL BLOOD GAS PO2 52 mm/Hg (80-100); ARTERIAL BLOOD GAS TCO2 29.1 mmol/L (22-28)
[2018-04-20] MEDS: Meropenem 1 GM in Sodium Chloride 0.9% 100 ML IVPB SCH ×3 (05:30→20:15)
[2018-04-20 06:33] LABS: ALB/GLOB RATIO 0.6 (1.0-2.1); ALBUMIN 2.5 g/dL (3.5-5.0); ALT/SGPT 109 U/L (21-72); AST/SGOT 155 U/L (17-59); BLOOD UREA NITROGEN 16 mg/dL (9-20); CALCIUM 6.7 mg/dl (8.6-10.4); GFR NON-AFRICAN AMERICAN > 60
[2018-04-20 06:35] LABS: BASO # 0.1 K/uL (0.0-0.2); BASO % 0.6 % (0.0-2.0); EOS # 0.1 K/uL (0.0-0.7); EOS % 0.6 % (0.0-4.0); LYMPH # 0.9 K/uL (1.0-4.3); LYMPH % 5.3 % (20.0-40.0); MEAN CELL VOLUME 90.4 fL (80.0-94.0); MEAN CORPUSCULAR HEMOGLOBIN 29.2 pg (27.0-31.0); MEAN CORPUSCULAR HGB CONC 32.2 g/dL (33.0-37.0); MONO # 0.6 K/uL (0.0-0.8); MONO % 3.4 % (0.0-10.0); NEUT # 14.7 K/uL (1.8-7.0); NEUT % 90.1 % (50.0-75.0); NRBC % 0.1 % (0.0-2.0); PLATELET COUNT 344 K/uL (130-400); RED CELL DISTRIBUTION WIDTH 15.2 % (11.5-14.5); WHITE BLOOD COUNT 16.3 K/uL (4.8-10.8)
[2018-04-20] MEDS ORDERED: Sodium Chloride 0.9% 250 ML IV ONE (06:49)
[2018-04-20 08:48] LABS: BANDS 2 % (0-2); LYMPHOCYTE 7 % (20-40); MONOCYTE 7 % (0-10); NEUTROPHIL 84 % (50-75); PLATELET ESTIMATE NORMAL (NORMAL); TOTAL CELLS COUNTED 100
[2018-04-20 08:49] LABS: ANISOCYTOSIS SLIGHT; HYPOCHROMIC SLIGHT; TARGET CELLS SLIGHT
[2018-04-20] MEDS: Potassium Chloride 20 mEq/15 ml LIQ UD PO SCH (10:00)
[2018-04-20] MEDS ORDERED: Magnesium Sulfate 1 gm in D5W 1 GM/100 ML BAG IVPB ONE (10:15)
--- NOTE | 2018-04-20 10:46 | RAD ---
Date of service: 04/20/2018 HISTORY: vent COMPARISON: 04/19/2018 FINDINGS: LUNGS: There opacity in the lower right hemithorax essentially unchanged from the prior examination. Nonspecific. Possible pneumonia/atelectasis. Follow-up advised. No left-sided infiltrate. PLEURA: Small right pleural effusion. No left pleural effusion. No pneumothorax. Right chest tube unchanged in position. CARDIOVASCULAR: No aortic atherosclerotic calcification present. Normal cardiac size. No congestive change. ET tube positioned approximately 2.9 cm above tracheal rashad. NG tube extends to the left upper quadrant of the abdomen. OSSEOUS STRUCTURES: No significant abnormalities. VISUALIZED UPPER ABDOMEN: Normal. OTHER FINDINGS: None. IMPRESSION: Right chest tube. Small right pleural effusion. No pneumothorax. ETT and NG tube. Opacity lower right hemithorax possible pneumonia/atelectasis.
[2018-04-20] MEDS: Multiple Vitamins Tab PO SCH (11:05)
[2018-04-20] MEDS: Lactobacillus Acidophilus 500 MU Cap PO SCH ×2 (11:05→17:29)
[2018-04-20] MEDS: Enoxaparin 40 mg Syringe SC SCH (11:06)
--- NOTE | 2018-04-20 12:52 | CP.CCUPN ---
CCU Subjective - Physician Review Subjective (Free Text): PGY-[address] Hannah Wills service Patient seen and examined at bedside. and sister at bedside. As per nurse, patient was tachypneic and having restless movements last night, was given fentanyl, and was observed to be calm for the rest of night. Patient remains sedated, observed to open eyes and slight movements of extremities, does not follow command. ROS unattainable due to patient's current status. Critical Care Time Spent (in minutes): 35 CCU Objective - Vital Signs / Intake & Output Vital Signs (Last 4 hours): Vital Signs Temp Pulse Resp BP Pulse Ox 04/20/18 12:00 95 H 25 H 94 L 04/20/18 11:33 94 H 23 125/72 96 04/20/18 11:00 92 H 24 96 04/20/18 10:33 93 H 27 H 118/69 97 04/20/18 10:00 100 H 28 H 93 L 04/20/18 09:52 103 H 39 H 115/67 93 L 04/20/18 09:41 110 H 27 H 141/75 97 04/20/18 09:34 101 H 45 H 106/65 96 04/20/18 09:21 103 H 26 H 04/20/18 09:00 98.2 F 102 H 37 H 115/62 92 L Intake and Output (Last 8hrs): Intake & Output 04/19/18 04/20/18 04/20/18 22:59 06:59 14:59 Intake Total 1310.4 1467.80 878.18 Output Total 785 905 120 Balance 525.4 562.80 758.18 Weight 218 lb Intake: IV 350 300.67 530.08 Intake, IV Amount 590.4 847.13 308.1 Left Antecubital 100 Left Forearm 100 250 Left Hand 100 250 Right Antecubital 183.2 158.4 16.7 Right Forearm 206.18 29.8 Right Hand 167.2 125.3 11.6 Right Upper arm 40 7.25 Tube Feeding 320 320 40 Other 50 Output: Urine 785 905 120 Urethral (Peña) 785 905 120 Other: # Bowel Movements 0 - Physical Exam Head: Positive for: Atraumatic, Normocephalic Pupils: Positive for: PERRL Extroacular Muscles: Positive for: EOMI Conjunctiva: Positive for: Normal Neck: Positive for: Normal Range of Motion Respiratory/Chest: Positive for: Decreased Breath Sounds (right middle and lower lobes ), Rales. Negative for: Respiratory Distress, Accessory Muscle Use Cardiovascular: Positive for: Regular Rate and Rhythm, Normal S1, S2 Abdomen: Positive for: Distention, Normal Bowel Sounds. Negative for: Tenderness Upper Extremity: Positive for: Normal Inspection. Negative for: Cyanosis, Edema Lower Extremity: Positive for: Normal Inspection. Negative for: Edema Neurological: Positive for: Other (unable to assess due to pts condition ) Skin: Positive for: Warm, Dry, Normal Color Psychiatric: Positive for: Other (sedated, not awake or oriented, opens eyes). Negative for: Alert, Oriented x 3 - Medications Active Medications: Active Medications Generic Name Dose Route Start Last Admin Trade Name Freq PRN Reason Stop Dose Admin Albuterol/Ipratropium 3 ml 04/15/18 08:00 04/20/18 08:15 Duoneb 3 Mg/0.5 Mg (3 Ml) Ud INH 3 ml RQ6 JESUS Administration Docusate Sodium 100 mg 04/14/18 18:30 04/20/18 11:05 Colace PO 100 mg TID JESUS Administration Enoxaparin Sodium 40 mg 04/14/18 10:00 04/20/18 11:06 Lovenox SC 40 mg DAILY JESUS Administration Folic Acid 1 mg 04/14/18 10:00 04/20/18 11:05 Folic Acid PO 1 mg DAILY JESUS Administration Vancomycin HCl 1,250 mg/ 250 mls @ 125 mls/hr 04/16/18 01:30 04/20/18 01:30 Sodium Chloride IVPB 125 mls/hr Q12H JESUS Administration Protocol Propofol 1,000 mg in 100 mls @ 2.79 mls/hr 04/15/18 21:20 04/20/18 11:00 Diprivan IV 30 mcg/kg/min .Q24H PRN 16.74 mls/hr Agitation Administration Protocol 5 MCG/KG/MIN Midazolam HCl 100 mg/ Sodium 100 mls @ 1.86 mls/hr 04/16/18 20:15 04/20/18 00:00 Chloride IV 0 mg/kg/hr .Q24H JESUS 0 mls/hr Titration Protocol 0.02 MG/KG/HR Meropenem 1 gm/ Sodium 100 mls @ 100 mls/hr 04/16/18 21:00 04/20/18 05:30 Chloride IVPB 100 mls/hr Q8H JESUS Administration Protocol Clindamycin Phosphate 900 mg/ 106 mls @ 100 mls/hr 04/16/18 23:30 04/20/18 08:02 Sodium Chloride IV 100 mls/hr Q8H JESUS Administration Protocol Dexmedetomidine HCl 200 mcg/ 50 mls @ 4.65 mls/hr 04/17/18 15:56 04/20/18 10:52 Sodium Chloride IV 0.5 mcg/kg/hr TITR PRN 11.63 mls/hr Agitation Administration Protocol 0.2 MCG/KG/HR Fentanyl Citrate 2,500 mcg/ 250 mls @ 19.92 mls/hr 04/19/18 22:00 04/20/18 11:09 Sodium Chloride IV Not Given .[id number] JESUS Protocol 2 MCG/KG/HR Ibuprofen 400 mg 04/19/18 03:31 04/20/18 05:30 Motrin Tab PO 400 mg Q6H PRN Administration fever Lactobacillus Acidophilus 1 cap 04/14/18 18:45 04/20/18 11:05 Bacid Acidophilus PO 1 cap BID JESUS Administration Multivitamins 1 tab 04/14/18 10:00 04/20/18 11:05 Hexavitamin PO 1 tab DAILY JESUS Administration Pantoprazole Sodium 40 mg 04/14/18 10:00 04/20/18 10:53 Protonix Inj IVP 40 mg DAILY JESUS Administration Sennosides 8.6 mg 04/14/18 00:15 04/20/18 11:05 Senokot Tab PO 8.6 mg BID JESUS Administration Thiamine HCl 100 mg 04/14/18 10:00 04/20/18 11:05 Vitamin B1 Tab PO 100 mg DAILY JESUS Administration - Patient Studies Lab Studies: Microbiology Studies 04/18/18 17:49 Gram Stain - Preliminary Pleural Fluid Body Fluid Culture - Preliminary NO GROWTH AFTER 2 DAYS 04/18/18 17:49 Anaerobic Culture - Final Pleural Fluid NO ANAEROBES ISOLATED. 04/19/18 14:23 Gram Stain - Final Bronchial Washings 04/15/18 13:49 Gram Stain - Final Thoracic Fluid Body Fluid Culture - Final NO GROWTH AFTER 4 DAYS 04/17/18 01:07 Gram Stain - Final Trachasp Sputum Culture - Final No growth. Lab Studies 04/20/18 04/20/18 04/20/18 Range/Units 11:31 06:58 06:07 WBC 16.3 H (4.8-10.8) K/uL RBC 4.10 L (4.40-5.90) Mil/uL Hgb 12.0 (12.0-18.0) g/dL Hct 37.1 (35.0-51.0) % MCV 90.4 (80.0-94.0) fL MCH 29.2 (27.0-31.0) pg MCHC 32.2 L (33.0-37.0) g/dL RDW 15.2 H (11.5-14.5) % Plt Count 344 (130-400) K/uL MPV 10.0 (7.2-11.7) fL Neut % (Auto) 90.1 H (50.0-75.0) % Lymph % (Auto) 5.3 L (20.0-40.0) % Rooks % (Auto) 3.4 (0.0-10.0) % Eos % (Auto) 0.6 (0.0-4.0) % Baso % (Auto) 0.6 (0.0-2.0) % Neut # (Auto) 14.7 H (1.8-7.0) K/uL Lymph # (Auto) 0.9 L (1.0-4.3) K/uL Rooks # (Auto) 0.6 (0.0-0.8) K/uL Eos # (Auto) 0.1 (0.0-0.7) K/uL Baso # (Auto) 0.1 (0.0-0.2) K/uL Neutrophils % (Manual) 84 H (50-75) % Band Neutrophils % 2 (0-2) % Lymphocytes % (Manual) 7 L (20-40) % Monocytes % (Manual) 7 (0-10) % Platelet Estimate Normal (NORMAL) Hypochromasia (manual) Slight Anisocytosis (manual) Slight Target Cells Slight Puncture Site pCO2 (35-45) mm/Hg pO2 (80-100) mm/Hg HCO3 (21-28) mmol/L ABG pH (7.35-7.45) ABG Total CO2 (22-28) mmol/L ABG O2 Saturation (95-98) % ABG Base Excess (-2.0-3.0) mmol/L [place] Test ABG Potassium (3.6-5.2) mmol/L A-a O2 Difference mm/Hg Respiratory Index Sodium (132-148) mmol/l Chloride (98-107) mmol/L Glucose (75-110) mg/dl Lactate (0.7-2.1) mmol/L Vent Mode Mechanical Rate FiO2 % Tidal Volume PEEP Potassium (3.6-5.2) mmol/L Carbon Dioxide (22-30) mmol/L Anion Gap (10-20) BUN (9-20) mg/dL Creatinine (0.8-1.5) mg/dL Est GFR ( Amer) Est GFR (Non-Af Amer) POC Glucose (mg/dL) 118 H 153 H (65-110) mg/dL Random Glucose (75-110) mg/dL Calcium (8.6-10.4) mg/dl Phosphorus (2.5-4.5) mg/dL Magnesium (1.6-2.3) mg/dL Total Bilirubin (0.2-1.3) mg/dL AST (17-59) U/L ALT (21-72) U/L Alkaline Phosphatase (38-126) U/L Total Protein (6.3-8.3) g/dL Albumin (3.5-5.0) g/dL Globulin (2.2-3.9) gm/dL Albumin/Globulin Ratio (1.0-2.1) Arterial Blood Potassium (3.6-5.2) mmol/L 04/20/18 04/20/18 04/19/18 Range/Units 06:05 04:35 23:33 WBC (4.8-10.8) K/uL RBC (4.40-5.90) Mil/uL Hgb (12.0-18.0) g/dL Hct (35.0-51.0) % MCV (80.0-94.0) fL MCH (27.0-31.0) pg MCHC (33.0-37.0) g/dL RDW (11.5-14.5) % Plt Count (130-400) K/uL MPV (7.2-11.7) fL Neut % (Auto) (50.0-75.0) % Lymph % (Auto) (20.0-40.0) % Rooks % (Auto) (0.0-10.0) % Eos % (Auto) (0.0-4.0) % Baso % (Auto) (0.0-2.0) % Neut # (Auto) (1.8-7.0) K/uL Lymph # (Auto) (1.0-4.3) K/uL Rooks # (Auto) (0.0-0.8) K/uL Eos # (Auto) (0.0-0.7) K/uL Baso # (Auto) (0.0-0.2) K/uL Neutrophils % (Manual) (50-75) % Band Neutrophils % (0-2) % Lymphocytes % (Manual) (20-40) % Monocytes % (Manual) (0-10) % Platelet Estimate (NORMAL) Hypochromasia (manual) Anisocytosis (manual) Target Cells Puncture Site Lb pCO2 50 H (35-45) mm/Hg pO2 52 L (80-100) mm/Hg HCO3 25.5 (21-28) mmol/L ABG pH 7.35 (7.35-7.45) ABG Total CO2 29.1 H (22-28) mmol/L ABG O2 Saturation 89.1 L (95-98) % ABG Base Excess 1.2 (-2.0-3.0) mmol/L [place] Test Na ABG Potassium 3.7 (3.6-5.2) mmol/L A-a O2 Difference 313.0 mm/Hg Respiratory Index 6.0 Sodium 142 144.0 (132-148) mmol/l Chloride 110 H 109.0 H (98-107) mmol/L Glucose 129 H (75-110) mg/dl Lactate 1.0 (0.7-2.1) mmol/L Vent Mode Prvc Mechanical Rate 14 FiO2 60.0 % Tidal Volume 400 PEEP 10 Potassium 4.3 (3.6-5.2) mmol/L Carbon Dioxide 23 (22-30) mmol/L Anion Gap 14 (10-20) BUN 16 (9-20) mg/dL Creatinine 0.6 L (0.8-1.5) mg/dL Est GFR ( Amer) > 60 Est GFR (Non-Af Amer) > 60 POC Glucose (mg/dL) 138 H (65-110) mg/dL Random Glucose 95 (75-110) mg/dL Calcium 6.7 L (8.6-10.4) mg/dl Phosphorus 4.7 H (2.5-4.5) mg/dL Magnesium 1.9 (1.6-2.3) mg/dL Total Bilirubin 1.3 (0.2-1.3) mg/dL AST 155 H D (17-59) U/L ALT 109 H D (21-72) U/L Alkaline Phosphatase 381 H D (38-126) U/L Total Protein 6.7 (6.3-8.3) g/dL Albumin 2.5 L (3.5-5.0) g/dL Globulin 4.2 H (2.2-3.9) gm/dL Albumin/Globulin Ratio 0.6 L (1.0-2.1) Arterial Blood Potassium 3.7 (3.6-5.2) mmol/L 04/19/18 Range/Units 17:32 WBC (4.8-10.8) K/uL RBC (4.40-5.90) Mil/uL Hgb (12.0-18.0) g/dL Hct (35.0-51.0) % MCV (80.0-94.0) fL MCH (27.0-31.0) pg MCHC (33.0-37.0) g/dL RDW (11.5-14.5) % Plt Count (130-400) K/uL MPV (7.2-11.7) fL Neut % (Auto) (50.0-75.0) % Lymph % (Auto) (20.0-40.0) % Rooks % (Auto) (0.0-10.0) % Eos % (Auto) (0.0-4.0) % Baso % (Auto) (0.0-2.0) % Neut # (Auto) (1.8-7.0) K/uL Lymph # (Auto) (1.0-4.3) K/uL Rooks # (Auto) (0.0-0.8) K/uL Eos # (Auto) (0.0-0.7) K/uL Baso # (Auto) (0.0-0.2) K/uL Neutrophils % (Manual) (50-75) % Band Neutrophils % (0-2) % Lymphocytes % (Manual) (20-40) % Monocytes % (Manual) (0-10) % Platelet Estimate (NORMAL) Hypochromasia (manual) Anisocytosis (manual) Target Cells Puncture Site pCO2 (35-45) mm/Hg pO2 (80-100) mm/Hg HCO3 (21-28) mmol/L ABG pH (7.35-7.45) ABG Total CO2 (22-28) mmol/L ABG O2 Saturation (95-98) % ABG Base Excess (-2.0-3.0) mmol/L [place] Test ABG Potassium (3.6-5.2) mmol/L A-a O2 Difference mm/Hg Respiratory Index Sodium (132-148) mmol/l Chloride (98-107) mmol/L Glucose (75-110) mg/dl Lactate (0.7-2.1) mmol/L Vent Mode Mechanical Rate FiO2 % Tidal Volume PEEP Potassium (3.6-5.2) mmol/L Carbon Dioxide (22-30) mmol/L Anion Gap (10-20) BUN (9-20) mg/dL Creatinine (0.8-1.5) mg/dL Est GFR ( Amer) Est GFR (Non-Af Amer) POC Glucose (mg/dL) 118 H (65-110) mg/dL Random Glucose (75-110) mg/dL Calcium (8.6-10.4) mg/dl Phosphorus (2.5-4.5) mg/dL Magnesium (1.6-2.3) mg/dL Total Bilirubin (0.2-1.3) mg/dL AST (17-59) U/L ALT (21-72) U/L Alkaline Phosphatase (38-126) U/L Total Protein (6.3-8.3) g/dL Albumin (3.5-5.0) g/dL Globulin (2.2-3.9) gm/dL Albumin/Globulin Ratio (1.0-2.1) Arterial Blood Potassium (3.6-5.2) mmol/L Laboratory Results - last 24 hr 04/19/18 04/19/18 04/20/18 17:32 23:33 04:35 WBC RBC Hgb Hct MCV MCH MCHC RDW Plt Count MPV Neut % (Auto) Lymph % (Auto) Rooks % (Auto) Eos % (Auto) Baso % (Auto) Neut # (Auto) Lymph # (Auto) Rooks # (Auto) Eos # (Auto) Baso # (Auto) Neutrophils % (Manual) Band Neutrophils % Lymphocytes % (Manual) Monocytes % (Manual) Platelet Estimate Hypochromasia (manual) Anisocytosis (manual) Target Cells Puncture Site Lb pCO2 50 H pO2 52 L HCO3 25.5 ABG pH 7.35 ABG Total CO2 29.1 H ABG O2 Saturation 89.1 L ABG Base Excess 1.2 [place] Test Na ABG Potassium 3.7 A-a O2 Difference 313.0 Respiratory Index 6.0 Sodium 144.0 Chloride 109.0 H Glucose 129 H Lactate 1.0 Vent Mode Prvc Mechanical Rate 14 FiO2 60.0 Tidal Volume 400 PEEP 10 Potassium Carbon Dioxide Anion Gap BUN Creatinine Est GFR ( Amer) Est GFR (Non-Af Amer) POC Glucose (mg/dL) 118 H 138 H Random Glucose Calcium Phosphorus Magnesium Total Bilirubin AST ALT Alkaline Phosphatase Total Protein Albumin Globulin Albumin/Globulin Ratio Arterial Blood Potassium 3.7 04/20/18 04/20/18 04/20/18 06:05 06:07 06:58 WBC 16.3 H RBC 4.10 L Hgb 12.0 Hct 37.1 MCV 90.4 MCH 29.2 MCHC 32.2 L RDW 15.2 H Plt Count 344 MPV 10.0 Neut % (Auto) 90.1 H Lymph % (Auto) 5.3 L Rooks % (Auto) 3.4 Eos % (Auto) 0.6 Baso % (Auto) 0.6 Neut # (Auto) 14.7 H Lymph # (Auto) 0.9 L Rooks # (Auto) 0.6 Eos # (Auto) 0.1 Baso # (Auto) 0.1 Neutrophils % (Manual) 84 H Band Neutrophils % 2 Lymphocytes % (Manual) 7 L Monocytes % (Manual) 7 Platelet Estimate Normal Hypochromasia (manual) Slight Anisocytosis (manual) Slight Target Cells Slight Puncture Site pCO2 pO2 HCO3 ABG pH ABG Total CO2 ABG O2 Saturation ABG Base Excess [place] Test ABG Potassium A-a O2 Difference Respiratory Index Sodium 142 Chloride 110 H Glucose Lactate Vent Mode Mechanical Rate FiO2 Tidal Volume PEEP Potassium 4.3 Carbon Dioxide 23 Anion Gap 14 BUN 16 Creatinine 0.6 L Est GFR ( Amer) > 60 Est GFR (Non-Af Amer) > 60 POC Glucose (mg/dL) 153 H Random Glucose 95 Calcium 6.7 L Phosphorus 4.7 H Magnesium 1.9 Total Bilirubin 1.3 AST 155 H D ALT 109 H D Alkaline Phosphatase 381 H D Total Protein 6.7 Albumin 2.5 L Globulin 4.2 H Albumin/Globulin Ratio 0.6 L Arterial Blood Potassium 04/20/18 11:31 WBC RBC Hgb Hct MCV MCH MCHC RDW Plt Count MPV Neut % (Auto) Lymph % (Auto) Rooks % (Auto) Eos % (Auto) Baso % (Auto) Neut # (Auto) Lymph # (Auto) Rooks # (Auto) Eos # (Auto) Baso # (Auto) Neutrophils % (Manual) Band Neutrophils % Lymphocytes % (Manual) Monocytes % (Manual) Platelet Estimate Hypochromasia (manual) Anisocytosis (manual) Target Cells Puncture Site pCO2 pO2 HCO3 ABG pH ABG Total CO2 ABG O2 Saturation ABG Base Excess [place] Test ABG Potassium A-a O2 Difference Respiratory Index Sodium Chloride Glucose Lactate Vent Mode Mechanical Rate FiO2 Tidal Volume PEEP Potassium Carbon Dioxide Anion Gap BUN Creatinine Est GFR ( Amer) Est GFR (Non-Af Amer) POC Glucose (mg/dL) 118 H Random Glucose Calcium Phosphorus Magnesium Total Bilirubin AST ALT Alkaline Phosphatase Total Protein Albumin Globulin Albumin/Globulin Ratio Arterial Blood Potassium Radiology Impressions: Radiology Impressions Chest X-Ray 04/20/18 07:00 IMPRESSION: Right chest tube. Small right pleural effusion. No pneumothorax. ETT and NG tube. Opacity lower right hemithorax possible pneumonia/atelectasis. Critical Care Progress Note - Ventilator Checklist Head of Bed 30 Degrees: Yes PUD Prophalyxis: Yes DVT Prophylaxis: Yes Oral Care with Chlorhexidine Gluconate {CHG}: Yes - Vent Settings MODE:: PRVC TIDAL VOLUME:: 400 RESP RATE:: 14 FIO2:: 60 PEEP:: 8 - Prophylaxis GI Prophylaxis GI: PPI - Prophylaxis DVT Prophylaxis DVT: Heparin SQ - Nutrition Nutrition: Nutrition Category Date Time Status NPO Diet [DIET] Diets 04/16/18 Breakfast Active Assessment/Plan - Assessment and Plan (Free Text) Plan: 43 year old male with no pmhx presenting to ED with RLQ abdominal pain, fever and chills since last , constipated x 3 days, code sepsis, elevated WBC, bandemia, elevated lactate, CT shows Rt lung consolidation, most likely due to aspiration PNA vs CA PNA. thoracentesis 02/13, likely superimposed consolidation in right upper lobe as well as possible right lower lobe as per 04/15 chest xray. 02/13 night intubated for worsening respiratory failure, hypoxia and DT, sedated with versed, propofol, precedex and fentanyl drip, chest tube placed on 04/18 and EET replaced for thick purulent material observed, bronchial washing on 04/19. Neuro alcohol withdrawal syndrome with DT on 04/15 intubated - sedation with propofol, Versed, Precedex and Fentanyl Pulm hypoxic respiratory failure secondary to Community acquired PNA vs aspiration PNA with empyema. thoracenesis 04/15, empyema removed 1.2 L, intubated due to hypoxia and DT 04/15, chest tube placed 04/18 EET replaced and bronchial washing 04/19 Intubated on vent PRVC 14/400/8/60 CTA - no evidence of PE Chest xray 04/20 - Right chest tube, small right pleural effusion, no pneumothroax, ETT and NG tube, opacity lower right hemithorax possible pneumonia/atelectasis CT Chest - decreased right pleural effusion, extensive right lower lobe atelectasis with right middle lobe and left lower lobe subsegmental atelectasis. Small left pleural effusion. No pneumothroax. abx - Clinda, vanco Meropenem Cardio thoracic sx consult - Dr Meza - possible VATS - follow up recs continue Duonebs Cardio HR 90s, BP wnl continue to monitor GI Tube feedings Jevity initial rate @ 20, increase 20, goal at 45 NPO Renal monitor urine output electrolyte within normal limits replete electrolytes as needed ID today WBC 16, downtrending from 22 continue Meropenem Q8, Vanco Q12H, Clinda Q8H Legionella, flu - negative Pleural fluid - no growth after 2days, pending bronchial washings Dr Spring - ID follow up recs HIV, Hep, atypicals - negative PPX DVT: lovenox GI: protonix Multivit, thiamine, Folic acid Ibuprofen 400mg PO Q6H PRN Plan discussed with Dr Elma Tate, PGY-1 - Date & Time Date: 04/20/18 Time: 08:30
--- NOTE | 2018-04-20 12:55 | CT ---
Date of service: 04/20/2018 PROCEDURE: CT Chest without contrast HISTORY: re-eval chest tube/effusion COMPARISON: 04/17/2018 TECHNIQUE: Contiguous axial images were obtained through the chest without intravenous contrast enhancement. Sagittal and coronal reconstructions were performed. Radiation dose (DLP): 929.86 mGy-cm. This CT exam was performed using one or more of the following dose reduction techniques: Automated exposure control, adjustment of the mA and/or kV according to patient size, and/or use of iterative reconstruction technique. FINDINGS: LUNGS: Extensive right lower lobe segmental and subsegmental atelectasis. There is right middle lobe subsegmental atelectasis. There is left lower lobe subsegmental atelectasis. There is no pulmonary mass identified. MEDIASTINUM: Unremarkable thoracic aorta. No aneurysm. Mild cardiomegaly. Main pulmonary artery unremarkable. No vascular congestion. No lymphadenopathy. There is an endotracheal tube terminating approximately 3 cm above the tracheal rashad. A nasogastric tube traverses the thoracic esophagus to the gastric lumen. No aortic atherosclerotic calcification or mural plaque present. PLEURA: Small bilateral pleural effusion. The extent of right pleural effusion is markedly diminished compared to the prior CT examination. The extent of right lower lobe atelectasis is not significantly altered. No pneumothorax. There is a right chest tube extending posteriorly about the right lower lobe to a right paraspinous location at approximately the T7-8 level. There is nonspecific elevation of the right hemidiaphragm as on previous examination. BONES: No fracture. No destructive lesion. UPPER ABDOMEN: Grossly unremarkable. OTHER FINDINGS: None. IMPRESSION: Decreased right pleural effusion. Right chest tube. Extensive right lower lobe atelectasis with right middle lobe and left lower lobe subsegmental atelectasis. Small left pleural effusion. No pneumothorax. Endotracheal tube and nasogastric tube noted.
--- NOTE | 2018-04-20 14:03 | CP.PCM.PN ---
Subjective - Date & Time of Evaluation Date of Evaluation: 04/20/18 Time of Evaluation: 13:57 - Subjective Subjective: Pt s/e wbc 16k dwonfro Pt s/e. wbc-16 from 22. chest tube-min output. chest ct this am: Min effusion-mostly consolidaton of right lung. a/p: 1. chest tube drained out pleural effusion effectively. 2. Residual lung consoliaion,right. 3. No further surgical interventions. for now. Objective - Vital Signs/Intake and Output Vital Signs (last 24 hours): Temp Pulse Resp BP Pulse Ox 97.8 F 94 H 24 112/57 L 95 04/20/18 13:00 04/20/18 13:00 04/20/18 13:00 04/20/18 13:00 04/20/18 13:00 Intake and Output: 04/20/18 04/20/18 06:59 18:59 Intake Total 2123.00 1579.88 Output Total 1250 420 Balance 873.00 1159.88 - Medications Medications: Current Medications Albuterol/Ipratropium (Duoneb 3 Mg/0.5 Mg (3 Ml) Ud) 3 ml INH RQ6 [facility] Last Admin: 04/20/18 13:30 Dose: 3 ml Docusate Sodium (Colace) 100 mg PO TID [facility] Last Admin: 04/20/18 13:38 Dose: 100 mg Enoxaparin Sodium (Lovenox) 40 mg SC DAILY [facility] Last Admin: 04/20/18 11:06 Dose: 40 mg Folic Acid (Folic Acid) 1 mg PO DAILY [facility] Last Admin: 04/20/18 11:05 Dose: 1 mg Vancomycin HCl 1,250 mg/ (Sodium Chloride) 250 mls @ 125 mls/hr IVPB Q12H [facility]; Protocol Last Admin: 04/20/18 13:26 Dose: 125 mls/hr Propofol (Diprivan) 1,000 mg in 100 mls @ 2.79 mls/hr IV .Q24H PRN; Protocol PRN Reason: Agitation Last Admin: 04/20/18 11:00 Dose: 30 mcg/kg/min, 16.74 mls/hr Midazolam HCl 100 mg/ Sodium (Chloride) 100 mls @ 1.86 mls/hr IV .Q24H [facility]; Protocol Last Titration: 04/20/18 00:00 Dose: 0 mg/kg/hr, 0 mls/hr Meropenem 1 gm/ Sodium (Chloride) 100 mls @ 100 mls/hr IVPB Q8H [facility]; Protocol Last Admin: 04/20/18 13:23 Dose: 100 mls/hr Clindamycin Phosphate 900 mg/ (Sodium Chloride) 106 mls @ 100 mls/hr IV Q8H [facility]; Protocol Last Admin: 04/20/18 08:02 Dose: 100 mls/hr Dexmedetomidine HCl 200 mcg/ (Sodium Chloride) 50 mls @ 4.65 mls/hr IV TITR PRN; Protocol PRN Reason: Agitation Last Admin: 04/20/18 10:52 Dose: 0.5 mcg/kg/hr, 11.63 mls/hr Fentanyl Citrate 2,500 mcg/ (Sodium Chloride) 250 mls @ 19.92 mls/hr IV .[id number] [facility]; Protocol Last Admin: 04/20/18 11:09 Dose: Not Given Ibuprofen (Motrin Tab) 400 mg PO Q6H PRN PRN Reason: fever Last Admin: 04/20/18 13:39 Dose: 400 mg Lactobacillus Acidophilus (Bacid Acidophilus) 1 cap PO BID [facility] Last Admin: 04/20/18 11:05 Dose: 1 cap Multivitamins (Hexavitamin) 1 tab PO DAILY [facility] Last Admin: 04/20/18 11:05 Dose: 1 tab Pantoprazole Sodium (Protonix Inj) 40 mg IVP DAILY [facility] Last Admin: 04/20/18 10:53 Dose: 40 mg Sennosides (Senokot Tab) 8.6 mg PO BID [facility] Last Admin: 04/20/18 11:05 Dose: 8.6 mg Thiamine HCl (Vitamin B1 Tab) 100 mg PO DAILY [facility] Last Admin: 04/20/18 11:05 Dose: 100 mg - Labs Labs: 04/20/18 06:07 04/20/18 06:05 PT 13.0 SECONDS (9.7-12.2) H 04/15/18 16:25 INR 1.2 04/15/18 16:25 APTT 35 SECONDS (21-34) H 04/15/18 16:25
--- NOTE | 2018-04-20 18:28 | CARD ---
APPROVED REPORT Date of service: 04/20/2018 EXAM: Two-dimensional and M-mode echocardiogram with Doppler and color Doppler. Other Information Quality : GoodRhythm : 2D DIMENSIONS IVSd0.6 (0.7-1.1cm)LVDd5.6 (3.9-5.9cm) PWd0.8 (0.7-1.1cm)LA Ttqftf09 (18-58mL) LVDs3.8 (2.5-4.0cm)FS (%) 31.3 % LVEF (%)58.5 (>50%)LVEF (Harden's)58 % M-Mode DIMENSIONS Left Atrium (MM)3.82 (2.5-4.0cm)IVSd0.90 (0.7-1.1cm) Aortic Root3.54 (2.2-3.7cm)LVDd5.65 (4.0-5.6cm) Aortic Cusp Exc.2.61 (1.5-2.0cm)PWd0.71 (0.7-1.1cm) FS (%) 28 %LVDs4.09 (2.0-3.8cm) TAPSE17.18 cmLVEF (%)53 (>50%) Mitral Valve MV E Lpqbpjvp77.3cm/sMV A Trjmxghe59.5cm/sE/A ratio1.3 TDI Lateral E' Peak V14.89cm/sMedial E' Peak V7.90cm/sE/Lateral E'4.6 E/Medial E'8.6 Tricuspid Valve TR Peak Lbymfjiz950kw/sTR Peak Gr.[id number] LEFT VENTRICLE The left ventricle is normal size. There is normal left ventricular wall thickness. The left ventricular function is normal. The left ventricular ejection fraction is within the normal range. There is normal LV segmental wall motion. The left ventricular diastolic function is normal. RIGHT VENTRICLE The right ventricle is normal size. ATRIA The left atrium size is normal. The right atrium size is normal. AORTIC VALVE The aortic valve is normal in structure. MITRAL VALVE The mitral valve is normal in structure. TRICUSPID VALVE There is mild tricuspid regurgitation. <Conclusion> Technically difficut study. Normal LV systolic function. Normal chamber size. Mild TR.
--- NOTE | 2018-04-20 19:51 | CP.PCM.PN ---
Subjective - Date & Time of Evaluation Date of Evaluation: 04/20/18 Time of Evaluation: 18:30 - Subjective Subjective: Medical attending note Patient seen, examined. Unable to review of systems secondary to clinical condition. Patient remains intubated on vent. Patient is on sedation including Precedex, propofol, and fentanyl for DTs noted this morning discussed with nursing M patient's sister and present at bedside spoke briefly with them. Objective - Vital Signs/Intake and Output Vital Signs (last 24 hours): Temp Pulse Resp BP Pulse Ox 99.9 F H 89 22 108/56 L 96 04/20/18 17:00 04/20/18 19:05 04/20/18 19:05 04/20/18 19:05 04/20/18 19:05 Intake and Output: 04/20/18 04/21/18 18:59 06:59 Intake Total 3202.08 103.7 Output Total 605 165 Balance 2597.08 -61.3 - Medications Medications: Current Medications Albuterol/Ipratropium (Duoneb 3 Mg/0.5 Mg (3 Ml) Ud) 3 ml INH RQ6 [facility] Last Admin: 04/20/18 19:38 Dose: 3 ml Docusate Sodium (Colace) 100 mg PO TID [facility] Last Admin: 04/20/18 17:28 Dose: 100 mg Enoxaparin Sodium (Lovenox) 40 mg SC DAILY [facility] Last Admin: 04/20/18 11:06 Dose: 40 mg Folic Acid (Folic Acid) 1 mg PO DAILY [facility] Last Admin: 04/20/18 11:05 Dose: 1 mg Vancomycin HCl 1,250 mg/ (Sodium Chloride) 250 mls @ 125 mls/hr IVPB Q12H [facility]; Protocol Last Admin: 04/20/18 13:26 Dose: 125 mls/hr Propofol (Diprivan) 1,000 mg in 100 mls @ 2.79 mls/hr IV .Q24H PRN; Protocol PRN Reason: Agitation Last Admin: 04/20/18 17:23 Dose: 60 mcg/kg/min, 33 mls/hr Meropenem 1 gm/ Sodium (Chloride) 100 mls @ 100 mls/hr IVPB Q8H [facility]; Protocol Last Admin: 04/20/18 13:23 Dose: 100 mls/hr Clindamycin Phosphate 900 mg/ (Sodium Chloride) 106 mls @ 100 mls/hr IV Q8H [facility]; Protocol Last Admin: 04/20/18 15:48 Dose: 100 mls/hr Dexmedetomidine HCl 200 mcg/ (Sodium Chloride) 50 mls @ 4.65 mls/hr IV TITR PRN; Protocol PRN Reason: Agitation Last Admin: 04/20/18 19:10 Dose: 0.5 mcg/kg/hr, 11.63 mls/hr Fentanyl Citrate 2,500 mcg/ (Sodium Chloride) 250 mls @ 19.92 mls/hr IV .[id number] [facility]; Protocol Last Admin: 04/20/18 11:09 Dose: Not Given Ibuprofen (Motrin Tab) 400 mg PO Q6H PRN PRN Reason: fever Last Admin: 04/20/18 13:39 Dose: 400 mg Lactobacillus Acidophilus (Bacid Acidophilus) 1 cap PO BID [facility] Last Admin: 04/20/18 17:29 Dose: 1 cap Multivitamins (Hexavitamin) 1 tab PO DAILY [facility] Last Admin: 04/20/18 11:05 Dose: 1 tab Pantoprazole Sodium (Protonix Inj) 40 mg IVP DAILY [facility] Last Admin: 04/20/18 10:53 Dose: 40 mg Sennosides (Senokot Tab) 8.6 mg PO BID [facility] Last Admin: 04/20/18 17:29 Dose: 8.6 mg Thiamine HCl (Vitamin B1 Tab) 100 mg PO DAILY [facility] Last Admin: 04/20/18 11:05 Dose: 100 mg - Labs Labs: 04/20/18 06:07 04/20/18 06:05 PT 13.0 SECONDS (9.7-12.2) H 04/15/18 16:25 INR 1.2 04/15/18 16:25 APTT 35 SECONDS (21-34) H 04/15/18 16:25 - Constitutional Appears: Non-toxic, No Acute Distress - Head Exam Head Exam: NORMAL INSPECTION Additional comments: Intubated Prevalon boots Chest tube located on the right side of her chest - Eye Exam Eye Exam: EOMI - ENT Exam ENT Exam: Mucous Membranes Moist - Respiratory Exam Respiratory Exam: Decreased Breath Sounds Additional comments: Vent sounds patient is intubated Positive for rhonchi bibasilar - Cardiovascular Exam Cardiovascular Exam: REGULAR RHYTHM, +S1, +S2 - GI/Abdominal Exam GI & Abdominal Exam: Soft, Normal Bowel Sounds. absent: Distended, Firm, Guarding, Rigid, Tenderness, Rebound - Extremities Exam Extremities Exam: absent: Pedal Edema, Tenderness Additional comments: Trace edema - Skin Skin Exam: Dry, Normal Color, Warm Attending/Attestation - Attestation I have personally seen and examined this patient.: Yes I have fully participated in the care of the patient.: Yes I have reviewed all pertinent clinical information, including history, physical exam and plan: Yes Notes (Text): 1). Sepsis Secondary to Right Middle and Lower Lobe Pneumonia and Suspected Empyema * Infectious Disease (Dr. pSring) on case * Cardiothoracic Surgery Dr. Meza: Chest tube placed 04/18/18 and pleural fluid culture will have to be followed up * Leukocytosis, fever, pneumonia/empyema * CT chest from Apr 15, 2018. Cardiomegaly. Trace pericardial effusion. Coronary artery calcifications. Extensive consolidation throughout the right hemithorax with relative sparing of the right lung apex. Small loculated right-sided pleural effusion measuring approximately 2.1 cm in maximum depth superinfection is not excluded. Mild left basal bibasilar atelectasis. Left hemithorax. Otherwise grossly clear. Limited visualization of the upper abdomen reveals hepatomegaly. Diffuse hepatic steatosis with 2 more focal hypodense regions favored to represent focal fatty infiltration. * CT chest from Apr 17 was suboptimal. No evidence of central pulmonary embolus. Interval worsening of airspace consolidation at the right lung contains foci of low-attenuation possible fluid collection since prior study interval worsening of the right-sided multiple likely request for sacral pleural effusion. * CT chest from 04/20/2018 noted for decreased right pleural effusion. Right chest tube. Extensive right lower lobe atelectasis with right middle lobe and left lower lobe segmental atelectasis. Small left pleural effusion. No pneumothorax. Endotracheal tube and nasogastric tube noted. * Suspect possible aspiration due to the history of alcohol use (see below) IV abx: * Azithromycin and Rocephin were discontinued on 04/15/18 * Zosyn 3.375 gm IV Q6H (04/15/18 through 04/16/18) * Tamiflu 75 mg PO 2x/day (04/14/18 through 04/19/18) * Clindamycin 900 mg IV Q8H (04/15/18) * Vancomycin 1.25 gm IV Q12H (04/15/18) * Meropenem 1 gm IV Q8H (04/16/18) * Blood Culture 04/13/18: is negative to date * Pleural fluid (04/18/18): no growth * Bronchial Washings: 04/19/18: pending 2). Respiratory Distress Acute Respiratory Faiilure * Patient was intubated and placed on vent on evening 04/15/18 after he started to have DTs * Currently on Fentanyl, Propofol and Precedex 3). Alcohol Withdrawal DTs * Currently on Fentanyl, Propofol and Precedex 4). Bilateral Perinephric Stranding As seen on CT Abdomen/Pelvis * On exam 04/14/18 and 04/15/18 there was NO CVA tenderness * UA shows NEGATIVE Nitrate, Ketones, and LE * Doubt that this is Pyelonephritis as Urine Culture is negative 5). Alcohol Abuse * Patient revealed 04/14/18 that he drank shots and multiple beers twice a week but told overnight team at time of admission that he did this 5x per week. * Last drink was this past Friday04/10/18 as per patient 6). Hyponatremia (resolved) Likely SIADH TSH and T4 are normal Morning Cortisol normal Triglycerides normal Urine Osm was high Urine Na was 35 7). Tachycardia Could this be secondary to the ongoing fever secondary to the pneumonia? EKG shows Sinus Tachycardia Tylenol 650 mg OGT Q4H PRN Fever Normal sinus at bedside; likely secondary to DTs 8). Elevated LFTs and Hepatic Parenchymal Disease (as seen CT Abdomen) Likely secondary to suspected alcohol abuse Hepatitis Panel negative HIV negative UDS negative On CT scan noted hepatomegaly uptrending mildly 9). Hypokalemia monitor and replete 10). Hypomagnesemia monitor and replete 11). Constipation (resolved) As seen on Obstruction Series Senokot Colace 100 mg PO 3x/day Had bowel movement 04/15/18 12). Prophylaxis DVT risk score of 2 based upon Age and diagnosis of Sepsis: ovenox 40mg subqdaily Bilateral SCDs As patient was intubated 04/15/18, Protonix 40 mg IV 1x/day Jevity via OGT started at 20 ml/hr with goal of 45 ml/hr Lactobacillus PO 2x/day 04/16/18: Mary was at bedside and he she was updated on patient's recent developements and status with the help of ICU residen Dr. Severino Tate 04/17/18: Two Sisters, Cousin, Nephew were at bedside and he she was updated on patient's recent developements and status with the help of ICU residen Dr. Severino Tate 04/18/18: with the help of brother in law Carson (who speaks Azerbaijani) family members included Mary, were udated as to patient status 04/19/18: Two Sisters at the bedside were updated with the help of PATRICIA Moreno who translated Pashto 04/20/18: spoke with and sister at bedside.
[2018-04-21] MEDS: Albuterol-Ipratrop 3 mg / 0.5 (3 ml) UD INH SCH ×4 (01:41→19:30)
--- NOTE | 2018-04-21 01:49 | PN ---
DATE: 04/20/2018 SUBJECTIVE: The patient is with a fever of 101.6. PHYSICAL EXAMINATION: VITAL SIGNS: Now, pulse is 94, blood pressure is 104/49, respirations are on the ventilator. GENERAL: He remains sedated. NECK: Supple. LUNGS: Have coarse breath sounds. HEART: S1 and S2 are regular. ABDOMEN: Soft and nontender. He has a chest tube present. EXTREMITIES: Have no edema. LABORATORY DATA: Labs are noted. White count is 16.3 today and hemoglobin is 12, hematocrit is 37.1, platelet count is 344. Merrem is for renewal, so we will renew that. His BUN is 16 and creatinine is 0.6. Micro albright, cultures: The fungal culture and bronchial cultures are pending at this time, and his sputum had no growth. Other cultures were negative. The body fluid came back as fine. Preliminary, no AFB seen and no anaerobes isolated. ASSESSMENT AND PLAN: Body fluid culture, no growth. Fungal all are pending, but he has been on three antibiotics at this time. We will continue those. As the numbers are improving, he is on vancomycin, clindamycin and also meropenem at this time and still continues to have fever, probably has empyema with pneumonia and respiratory failure, status post chest tube. Continue present treatment. We will follow. Renea Spring MD
[2018-04-21] MEDS: Propofol 10 mg/ml 1,000 MG/100 ML VIAL IV PRN ×7 (03:13→22:05)
[2018-04-21] MEDS: Dexmedetomidine Hydrochloride 200 MCG in Sodium Chloride 0.9% 48 ML IV PRN ×5 (03:42→21:47)
[2018-04-21] MEDS: Meropenem 1 GM in Sodium Chloride 0.9% 100 ML IVPB SCH ×3 (04:35→21:00)
[2018-04-21 05:58] LABS: BASO # 0.1 K/uL (0.0-0.2); BASO % 0.7 % (0.0-2.0); EOS % 0.2 % (0.0-4.0); HEMOGLOBIN 11.6 g/dL (12.0-18.0); LYMPH # 0.7 K/uL (1.0-4.3); LYMPH % 4.7 % (20.0-40.0); MEAN CELL VOLUME 88.8 fL (80.0-94.0); MEAN CORPUSCULAR HEMOGLOBIN 29.6 pg (27.0-31.0); MEAN CORPUSCULAR HGB CONC 33.3 g/dL (33.0-37.0); MEAN PLATELET VOLUME 9.7 fL (7.2-11.7); MONO # 0.6 K/uL (0.0-0.8); MONO % 3.9 % (0.0-10.0); NEUT % 90.5 % (50.0-75.0); NRBC % 0.1 % (0.0-2.0); PLATELET COUNT 405 K/uL (130-400); RBC 3.91 Mil/uL (4.40-5.90); RED CELL DISTRIBUTION WIDTH 14.9 % (11.5-14.5); WHITE BLOOD COUNT 15.5 K/uL (4.8-10.8)
[2018-04-21 06:11] LABS: ABG ALLEN TEST POS; ARTERIAL BLOOD GAS HCO3 27.2 mmol/L (21-28); ARTERIAL BLOOD GAS O2 SAT 98.4 % (95-98); ARTERIAL BLOOD GAS PCO2 43 mm/Hg (35-45); ARTERIAL BLOOD GAS PH 7.42 (7.35-7.45); ARTERIAL BLOOD GAS PO2 81 mm/Hg (80-100); ARTERIAL BLOOD GAS TCO2 29.2 mmol/L (22-28)
[2018-04-21 06:26] LABS: ALB/GLOB RATIO 0.6 (1.0-2.1); ALBUMIN 2.3 g/dL (3.5-5.0); ALT/SGPT 113 U/L (21-72); AST/SGOT 113 U/L (17-59); BLOOD UREA NITROGEN 18 mg/dL (9-20); CALCIUM 7.4 mg/dl (8.6-10.4); GFR NON-AFRICAN AMERICAN > 60
[2018-04-21 08:35] LABS: BANDS 3 % (0-2); LYMPHOCYTE 5 % (20-40); MONOCYTE 4 % (0-10); NEUTROPHIL 88 % (50-75); PLATELET ESTIMATE NORMAL (NORMAL); TOTAL CELLS COUNTED 100
[2018-04-21 08:36] LABS: ANISOCYTOSIS SLIGHT; HYPOCHROMIC SLIGHT; LARGE PLATELETS PRESENT; POIKILOCYTOSIS SLIGHT
--- NOTE | 2018-04-21 09:36 | CP.PCM.PN ---
Subjective - Date & Time of Evaluation Date of Evaluation: 04/21/18 Time of Evaluation: 07:15 - Subjective Subjective: CT Surgery Pt seen and examined. Chest tube with 200cc serosanguinous output. Pt on propofol and precedex. Decreased FiO2 requirements. WBC trending down, still febrile to 101.7. Objective - Vital Signs/Intake and Output Vital Signs (last 24 hours): Temp Pulse Resp BP Pulse Ox 99 F 94 H 22 98/55 L 84 L 04/21/18 04:00 04/21/18 09:00 04/21/18 05:00 04/21/18 08:33 04/21/18 09:00 Intake and Output: 04/21/18 04/21/18 06:59 18:59 Intake Total 2664.4 561.1 Output Total 955 190 Balance 1709.4 371.1 - Medications Medications: Current Medications Albuterol/Ipratropium (Duoneb 3 Mg/0.5 Mg (3 Ml) Ud) 3 ml INH RQ6 [facility] Last Admin: 04/21/18 08:10 Dose: 3 ml Docusate Sodium (Colace) 100 mg PO TID [facility] Last Admin: 04/20/18 17:28 Dose: 100 mg Enoxaparin Sodium (Lovenox) 40 mg SC DAILY [facility] Last Admin: 04/20/18 11:06 Dose: 40 mg Folic Acid (Folic Acid) 1 mg PO DAILY [facility] Last Admin: 04/20/18 11:05 Dose: 1 mg Vancomycin HCl 1,250 mg/ (Sodium Chloride) 250 mls @ 125 mls/hr IVPB Q12H [facility]; Protocol Last Admin: 04/21/18 02:00 Dose: 125 mls/hr Propofol (Diprivan) 1,000 mg in 100 mls @ 2.79 mls/hr IV .Q24H [facility]; Protocol PRN Reason: Agitation Last Admin: 04/21/18 09:14 Dose: 60 mcg/kg/min, 33 mls/hr Meropenem 1 gm/ Sodium (Chloride) 100 mls @ 100 mls/hr IVPB Q8H [facility]; Protocol Last Admin: 04/21/18 04:35 Dose: 100 mls/hr Clindamycin Phosphate 900 mg/ (Sodium Chloride) 106 mls @ 100 mls/hr IV Q8H [facility]; Protocol Last Admin: 04/21/18 06:33 Dose: 100 mls/hr Dexmedetomidine HCl 200 mcg/ (Sodium Chloride) 50 mls @ 4.65 mls/hr IV TITR PRN; Protocol PRN Reason: Agitation Last Admin: 04/21/18 09:12 Dose: 0.5 mcg/kg/hr, 11.63 mls/hr Fentanyl Citrate 2,500 mcg/ (Sodium Chloride) 250 mls @ 19.92 mls/hr IV .[id number] [facility]; Protocol Last Admin: 04/20/18 23:35 Dose: Not Given Ibuprofen (Motrin Tab) 400 mg PO Q6H PRN PRN Reason: fever Last Admin: 04/21/18 03:14 Dose: 400 mg Lactobacillus Acidophilus (Bacid Acidophilus) 1 cap PO BID [facility] Last Admin: 04/20/18 17:29 Dose: 1 cap Multivitamins (Hexavitamin) 1 tab PO DAILY [facility] Last Admin: 04/20/18 11:05 Dose: 1 tab Pantoprazole Sodium (Protonix Inj) 40 mg IVP DAILY [facility] Last Admin: 04/20/18 10:53 Dose: 40 mg Sennosides (Senokot Tab) 8.6 mg PO BID [facility] Last Admin: 04/20/18 17:29 Dose: 8.6 mg Thiamine HCl (Vitamin B1 Tab) 100 mg PO DAILY [facility] Last Admin: 04/20/18 11:05 Dose: 100 mg - Labs Labs: 04/21/18 05:53 04/21/18 05:51 PT 13.0 SECONDS (9.7-12.2) H 04/15/18 16:25 INR 1.2 04/15/18 16:25 APTT 35 SECONDS (21-34) H 04/15/18 16:25 - Constitutional Appears: Non-toxic, No Acute Distress - Head Exam Head Exam: ATRAUMATIC, NORMOCEPHALIC - Eye Exam Eye Exam: EOMI. absent: Scleral icterus - Respiratory Exam Respiratory Exam: NORMAL BREATHING PATTERN. absent: Respiratory Distress Additional comments: chest tube in place, no air leak. - GI/Abdominal Exam GI & Abdominal Exam: Soft. absent: Distended, Tenderness - Extremities Exam Extremities Exam: Pedal Edema (mild). absent: Calf Tenderness - Back Exam Back Exam: absent: CVA tenderness (L), CVA tenderness (R) - Skin Skin Exam: Dry, Warm Assessment and Plan - Assessment and Plan (Free Text) Assessment: 43M w/ empyema, currently intubated and sedated, S/P chest tube insertion 04/18/18 Plan: AM CXRs Monitor for air leak Monitor drainage Continue abx D/W Dr. Susana Díaz PGY4
[2018-04-21] MEDS: Lactobacillus Acidophilus 500 MU Cap PO SCH ×2 (10:07→17:57)
[2018-04-21] MEDS: Multiple Vitamins Tab PO SCH (10:07)
[2018-04-21] MEDS: Enoxaparin 40 mg Syringe SC SCH (10:08)
[2018-04-21] MEDS ORDERED: Potassium Chloride 20 mEq/15 ml LIQ UD PO ONE (11:30)
--- NOTE | 2018-04-21 11:58 | RAD ---
Date of service: 04/21/2018 HISTORY: intubated, PNA COMPARISON: Multiple serial examinations preceding the most recent study: April 20, 2018. April 20, 2018. CT thorax FINDINGS: LUNGS: Stable consolidative changes affecting the right lung to a greater extent than the left. PLEURA: Bilateral pleural effusions left smaller than right. Chest tube identified in the right pleural space coursing medially, the tip is directed in a caudal orientation. CARDIOVASCULAR: No atherosclerotic calcification present Normal. OSSEOUS STRUCTURES: No significant abnormalities. VISUALIZED UPPER ABDOMEN: Normal. OTHER FINDINGS: Stable position of endotracheal tube. IMPRESSION: No significant interval change compared to the prior examination(s).
--- NOTE | 2018-04-21 13:19 | CP.PCM.PN ---
Subjective - Date & Time of Evaluation Date of Evaluation: 04/21/18 Time of Evaluation: 13:00 - Subjective Subjective: Medical Attending Note: Patient seen and examined. No family present. Unable to ROS secondary secondary clinical condition. Remains sedated off Propfol,Fentanyl,and Precedex. patient to get enema today. Continue to monitor chest tube. Objective - Vital Signs/Intake and Output Vital Signs (last 24 hours): Temp Pulse Resp BP Pulse Ox 102.5 F H 81 26 H 97/54 L 95 04/21/18 13:00 04/21/18 13:04 04/21/18 13:04 04/21/18 13:04 04/21/18 13:04 Intake and Output: 04/21/18 04/21/18 06:59 18:59 Intake Total 2664.4 972.2 Output Total 955 405 Balance 1709.4 567.2 - Medications Medications: Current Medications Albuterol/Ipratropium (Duoneb 3 Mg/0.5 Mg (3 Ml) Ud) 3 ml INH RQ6 [facility] Last Admin: 04/21/18 08:10 Dose: 3 ml Docusate Sodium (Colace) 100 mg PO TID [facility] Last Admin: 04/21/18 10:07 Dose: 100 mg Enoxaparin Sodium (Lovenox) 40 mg SC DAILY [facility] Last Admin: 04/21/18 10:08 Dose: 40 mg Folic Acid (Folic Acid) 1 mg PO DAILY [facility] Last Admin: 04/21/18 10:07 Dose: 1 mg Vancomycin HCl 1,250 mg/ (Sodium Chloride) 250 mls @ 125 mls/hr IVPB Q12H [facility]; Protocol Last Admin: 04/21/18 02:00 Dose: 125 mls/hr Propofol (Diprivan) 1,000 mg in 100 mls @ 2.79 mls/hr IV .Q24H [facility]; Protocol PRN Reason: Agitation Last Admin: 04/21/18 12:39 Dose: 60 mcg/kg/min, 33 mls/hr Meropenem 1 gm/ Sodium (Chloride) 100 mls @ 100 mls/hr IVPB Q8H [facility]; Protocol Last Admin: 04/21/18 12:43 Dose: 100 mls/hr Clindamycin Phosphate 900 mg/ (Sodium Chloride) 106 mls @ 100 mls/hr IV Q8H [facility]; Protocol Last Admin: 04/21/18 06:33 Dose: 100 mls/hr Dexmedetomidine HCl 200 mcg/ (Sodium Chloride) 50 mls @ 4.65 mls/hr IV TITR PRN; Protocol PRN Reason: Agitation Last Admin: 04/21/18 09:12 Dose: 0.5 mcg/kg/hr, 11.63 mls/hr Fentanyl Citrate 2,500 mcg/ (Sodium Chloride) 250 mls @ 19.92 mls/hr IV .[id number] [facility]; Protocol Last Admin: 04/21/18 13:00 Dose: Not Given Ibuprofen (Motrin Tab) 400 mg PO Q6H PRN PRN Reason: fever Last Admin: 04/21/18 10:32 Dose: 400 mg Lactobacillus Acidophilus (Bacid Acidophilus) 1 cap PO BID [facility] Last Admin: 04/21/18 10:07 Dose: 1 cap Multivitamins (Hexavitamin) 1 tab PO DAILY [facility] Last Admin: 04/21/18 10:07 Dose: 1 tab Pantoprazole Sodium (Protonix Inj) 40 mg IVP DAILY [facility] Last Admin: 04/21/18 10:08 Dose: 40 mg Sennosides (Senokot Tab) 8.6 mg PO BID [facility] Last Admin: 04/21/18 10:07 Dose: 8.6 mg Thiamine HCl (Vitamin B1 Tab) 100 mg PO DAILY [facility] Last Admin: 04/21/18 10:08 Dose: 100 mg - Labs Labs: 04/21/18 05:53 04/21/18 05:51 PT 13.0 SECONDS (9.7-12.2) H 04/15/18 16:25 INR 1.2 04/15/18 16:25 APTT 35 SECONDS (21-34) H 04/15/18 16:25 - Constitutional Appears: Non-toxic, No Acute Distress - Head Exam Head Exam: NORMAL INSPECTION - Eye Exam Eye Exam: PERRL - ENT Exam ENT Exam: Mucous Membranes Moist - Respiratory Exam Respiratory Exam: Decreased Breath Sounds, Rhonchi Additional comments: intubated on vent - Cardiovascular Exam Cardiovascular Exam: REGULAR RHYTHM, +S1, +S2 - GI/Abdominal Exam GI & Abdominal Exam: Soft, Normal Bowel Sounds. absent: Distended, Firm, Guarding, Rigid, Tenderness, Rebound - Extremities Exam Extremities Exam: absent: Pedal Edema, Tenderness Additional comments: prevalon boots b/l swelling in the upper and lower extremities - Neurological Exam Additional comments: sedated - Skin Skin Exam: Normal Color, Warm Assessment and Plan (1) Acute respiratory failure Status: Acute (2) Aspiration pneumonia Status: Acute (3) Delirium tremens Status: Acute (4) Constipation Status: Acute Attending/Attestation - Attestation I have personally seen and examined this patient.: Yes I have fully participated in the care of the patient.: Yes I have reviewed all pertinent clinical information, including history, physical exam and plan: Yes Notes (Text): 1). Sepsis Secondary to Right Middle and Lower Lobe Pneumonia and Suspected Empyema * Infectious Disease (Dr. Spring) on case * Cardiothoracic Surgery Dr. Meza: Chest tube placed 04/18/18 and pleural fluid culture will have to be followed up * Leukocytosis, fever, pneumonia/empyema * CT chest from Apr 15, 2018. Cardiomegaly. Trace pericardial effusion. Coronary artery calcifications. Extensive consolidation throughout the right hemithorax with relative sparing of the right lung apex. Small loculated right-sided pleural effusion measuring approximately 2.1 cm in maximum depth superinfection is not excluded. Mild left basal bibasilar atelectasis. Left hemithorax. Otherwise grossly clear. Limited visualization of the upper abdomen reveals hepatomegaly. Diffuse hepatic steatosis with 2 more focal hypodense regions favored to represent focal fatty infiltration. * CT chest from Apr 17 was suboptimal. No evidence of central pulmonary embolus. Interval worsening of airspace consolidation at the right lung contains foci of low-attenuation possible fluid collection since prior study interval worsening of the right-sided multiple likely request for sacral pleural effusion. * CT chest from 04/20/2018 noted for decreased right pleural effusion. Right chest tube. Extensive right lower lobe atelectasis with right middle lobe and left lower lobe segmental atelectasis. Small left pleural effusion. No pneumothorax. Endotracheal tube and nasogastric tube noted. * Suspect possible aspiration due to the history of alcohol use (see below) IV abx: * Azithromycin and Rocephin were discontinued on 04/15/18 * Zosyn 3.375 gm IV Q6H (04/15/18 through 04/16/18) * Tamiflu 75 mg PO 2x/day (04/14/18 through 04/19/18) * Clindamycin 900 mg IV Q8H (04/15/18) * Vancomycin 1.25 gm IV Q12H (04/15/18) * Meropenem 1 gm IV Q8H (04/16/18) * Blood Culture 04/13/18: is negative to date * Pleural fluid (04/18/18): no growth after 3 days * Bronchial Washings: 04/19/18: Normal saphrophytic john paul, fungal culture-prelim * Myocbacterial Culture--Prelim:pending * Procalcitonin: 1.64 2). Respiratory Distress Acute Respiratory Faiilure * Patient was intubated and placed on vent on evening 04/15/18 after he started to have DTs * Currently on Fentanyl, Propofol and Precedex * Remains on drips given low oxygenation status 3). Alcohol Withdrawal DTs * Currently on Fentanyl, Propofol and Precedex 4). Bilateral Perinephric Stranding As seen on CT Abdomen/Pelvis * On exam 04/14/18 and 04/15/18 there was NO CVA tenderness * UA shows NEGATIVE Nitrate, Ketones, and LE * Doubt that this is Pyelonephritis as Urine Culture is negative 5). Alcohol Abuse * Patient revealed 04/14/18 that he drank shots and multiple beers twice a week but told overnight team at time of admission that he did this 5x per week. * Last drink was this past Friday04/10/18 as per patient 6). Hyponatremia (resolved) * Likely SIADH * TSH and T4 are normal * Morning Cortisol normal * Triglycerides normal * Urine Osm was high * Urine Na was 35 7). Tachycardia (resolved) * Could this be secondary to the ongoing fever secondary to the pneumonia? * EKG shows Sinus Tachycardia * Tylenol 650 mg OGT Q4H PRN Fever * Normal sinus at bedside; likely secondary to DTs 8). Elevated LFTs and Hepatic Parenchymal Disease (as seen CT Abdomen) Likely secondary to suspected alcohol abuse * Hepatitis Panel negative * HIV negative * UDS negative * On CT scan noted hepatomegaly * uptrending mildly 9). Hypokalemia * monitor and replete 10). Hypomagnesemia * monitor and replete 11). Constipation * As seen on Obstruction Series * Senokot * Colace 100 mg PO 3x/day * Had bowel movement 04/15/18 * Patient to get an enema today 04/21/18-->f/u for bowel movement 12). Prophylaxis * DVT risk score of 2 based upon Age and diagnosis of Sepsis: lovenox 40mg subqdaily Bilateral SCDs * As patient was intubated 04/15/18, Protonix 40 mg IV 1x/day * Jevity via OGT started at 20 ml/hr with goal of 45 ml/hr * Lactobacillus PO 2x/day Updates: 04/16/18: Mary was at bedside and he she was updated on patient's recent developements and status with the help of ICU residen Dr. Severino Tate 04/17/18: Two Sisters, Cousin, Nephew were at bedside and he she was updated on patient's recent developements and status with the help of ICU residen Dr. Severino Tate 04/18/18: with the help of brother in law Carson (who speaks Namibian) family members included Mary, were udated as to patient status 04/19/18: Two Sisters at the bedside were updated with the help of PATRICIA Moreno who translated Yi 04/20/18: spoke with and sister at bedside 04/21/18: no family present at bedside.
--- NOTE | 2018-04-21 13:58 | CP.CCUPN ---
<Misael Tate - Last Filed: 04/21/18 15:35> CCU Subjective - Physician Review Subjective (Free Text): PGY-[address] Rangel Service Patient is seen and examined at bedside. Patient continues to be intubated and sedated. Family at bedside. Tmax overnight was 101.7, on cooling measures. No ROS attainable due to patient's current condition Critical Care Time Spent (in minutes): 35 CCU Objective - Vital Signs / Intake & Output Vital Signs (Last 4 hours): Vital Signs Temp Pulse Resp BP Pulse Ox 04/21/18 13:04 81 26 H 97/54 L 95 04/21/18 13:00 102.5 F H 91 H 26 H 97/54 L 95 04/21/18 12:33 80 20 89/51 L 94 L 04/21/18 12:00 83 23 93 L 04/21/18 11:33 86 25 H 91/51 L 93 L 04/21/18 11:00 90 26 H 94 L 04/21/18 10:33 90 25 H 102/58 L 93 L 04/21/18 10:00 91 H 27 H 92 L Intake and Output (Last 8hrs): Intake & Output 04/20/18 04/21/18 04/21/18 22:59 06:59 14:59 Intake Total 1739.6 1739.6 1475.9 Output Total 500 640 450 Balance 1239.6 1099.6 1025.9 Weight 220 lb Intake: IV 500 400 550 Intake, IV Amount 709.6 959.6 645.9 Left Hand 200 450 200 Right Forearm 268.0 268.0 234.5 Right Hand 92.8 92.8 81.2 Right Upper arm 148.8 148.8 130.2 Tube Feeding 320 320 280 Other 210 60 Output: Chest Tube Drainage 110 90 Right Anterior Chest 110 90 Urine 390 550 450 Urethral (Peña) 390 550 450 Other: # Bowel Movements 0 0 0 - Physical Exam Head: Positive for: Atraumatic, Normocephalic Pupils: Positive for: PERRL Extroacular Muscles: Positive for: EOMI Conjunctiva: Positive for: Normal Neck: Positive for: Normal Range of Motion Respiratory/Chest: Positive for: Decreased Breath Sounds (right middle and lower lobes ), Rales. Negative for: Respiratory Distress, Accessory Muscle Use Cardiovascular: Positive for: Regular Rate and Rhythm, Normal S1, S2 Abdomen: Positive for: Distention, Normal Bowel Sounds. Negative for: Tenderness Upper Extremity: Positive for: Normal Inspection. Negative for: Cyanosis, Edema Lower Extremity: Positive for: Normal Inspection. Negative for: Edema Neurological: Positive for: Other (unable to assess due to pts condition ) Skin: Positive for: Warm, Dry, Normal Color Psychiatric: Positive for: Other (sedated, not awake or oriented, opens eyes). Negative for: Alert, Oriented x 3 - Medications Active Medications: Active Medications Generic Name Dose Route Start Last Admin Trade Name Freq PRN Reason Stop Dose Admin Albuterol/Ipratropium 3 ml 04/15/18 08:00 04/21/18 13:45 Duoneb 3 Mg/0.5 Mg (3 Ml) Ud INH 3 ml RQ6 JESUS Administration Docusate Sodium 100 mg 04/14/18 18:30 04/21/18 10:07 Colace PO 100 mg TID JESUS Administration Enoxaparin Sodium 40 mg 04/14/18 10:00 04/21/18 10:08 Lovenox SC 40 mg DAILY JESUS Administration Folic Acid 1 mg 04/14/18 10:00 04/21/18 10:07 Folic Acid PO 1 mg DAILY JESUS Administration Vancomycin HCl 1,250 mg/ 250 mls @ 125 mls/hr 04/16/18 01:30 04/21/18 02:00 Sodium Chloride IVPB 125 mls/hr Q12H JESUS Administration Protocol Propofol 1,000 mg in 100 mls @ 2.79 mls/hr 04/15/18 21:20 04/21/18 12:39 Diprivan IV 60 mcg/kg/min .Q24H PRN 33 mls/hr Agitation Administration Protocol 5 MCG/KG/MIN Meropenem 1 gm/ Sodium 100 mls @ 100 mls/hr 04/16/18 21:00 04/21/18 12:43 Chloride IVPB 100 mls/hr Q8H JESUS Administration Protocol Clindamycin Phosphate 900 mg/ 106 mls @ 100 mls/hr 04/16/18 23:30 04/21/18 06:33 Sodium Chloride IV 100 mls/hr Q8H JESUS Administration Protocol Dexmedetomidine HCl 200 mcg/ 50 mls @ 4.65 mls/hr 04/17/18 15:56 04/21/18 13:37 Sodium Chloride IV 0.5 mcg/kg/hr TITR PRN 11.63 mls/hr Agitation Administration Protocol 0.2 MCG/KG/HR Fentanyl Citrate 2,500 mcg/ 250 mls @ 19.92 mls/hr 04/19/18 22:00 04/21/18 13:43 Sodium Chloride IV 2 mcg/kg/hr .[id number] JESUS 19.92 mls/hr Administration Protocol 2 MCG/KG/HR Ibuprofen 400 mg 04/19/18 03:31 04/21/18 10:32 Motrin Tab PO 400 mg Q6H PRN Administration fever Lactobacillus Acidophilus 1 cap 04/14/18 18:45 04/21/18 10:07 Bacid Acidophilus PO 1 cap BID JESUS Administration Multivitamins 1 tab 04/14/18 10:00 04/21/18 10:07 Hexavitamin PO 1 tab DAILY JESUS Administration Pantoprazole Sodium 40 mg 04/14/18 10:00 04/21/18 10:08 Protonix Inj IVP 40 mg DAILY JESUS Administration Sennosides 8.6 mg 04/14/18 00:15 04/21/18 10:07 Senokot Tab PO 8.6 mg BID JESUS Administration Thiamine HCl 100 mg 04/14/18 10:00 04/21/18 10:08 Vitamin B1 Tab PO 100 mg DAILY JESUS Administration - Patient Studies Lab Studies: Microbiology Studies 04/18/18 17:49 Gram Stain - Final Pleural Fluid Body Fluid Culture - Preliminary NO GROWTH AFTER 3 DAYS 04/19/18 14:23 Gram Stain - Final Bronchial Washings Bronchial Culture - Final NORMAL SAPROPHYTIC JOHN PAUL Fungal Culture - Preliminary 04/18/18 17:49 Anaerobic Culture - Final Pleural Fluid NO ANAEROBES ISOLATED. Fungal Culture - Preliminary 04/18/18 17:49 Mycobacterial Culture - Preliminary Other: Please Indicate Lab Studies 04/21/18 04/21/18 04/21/18 Range/Units 11:39 05:53 05:51 WBC 15.5 H (4.8-10.8) K/uL RBC 3.91 L (4.40-5.90) Mil/uL Hgb 11.6 L (12.0-18.0) g/dL Hct 34.7 L (35.0-51.0) % MCV 88.8 (80.0-94.0) fL MCH 29.6 (27.0-31.0) pg MCHC 33.3 (33.0-37.0) g/dL RDW 14.9 H (11.5-14.5) % Plt Count 405 H (130-400) K/uL MPV 9.7 (7.2-11.7) fL Neut % (Auto) 90.5 H (50.0-75.0) % Lymph % (Auto) 4.7 L (20.0-40.0) % Hardin % (Auto) 3.9 (0.0-10.0) % Eos % (Auto) 0.2 (0.0-4.0) % Baso % (Auto) 0.7 (0.0-2.0) % Neut # (Auto) 14.0 H (1.8-7.0) K/uL Lymph # (Auto) 0.7 L (1.0-4.3) K/uL Hardin # (Auto) 0.6 (0.0-0.8) K/uL Eos # (Auto) 0.0 (0.0-0.7) K/uL Baso # (Auto) 0.1 (0.0-0.2) K/uL Neutrophils % (Manual) 88 H (50-75) % Band Neutrophils % 3 H (0-2) % Lymphocytes % (Manual) 5 L (20-40) % Monocytes % (Manual) 4 (0-10) % Platelet Estimate Normal (NORMAL) Large Platelets Present Hypochromasia (manual) Slight Poikilocytosis (manual Slight Anisocytosis (manual) Slight Puncture Site pCO2 (35-45) mm/Hg pO2 (80-100) mm/Hg HCO3 (21-28) mmol/L ABG pH (7.35-7.45) ABG Total CO2 (22-28) mmol/L ABG O2 Saturation (95-98) % ABG Base Excess (-2.0-3.0) mmol/L ABG Hemoglobin (11.7-17.4) g/dL ABG Carboxyhemoglobin (0.5-1.5) % POC ABG HHb (Measured) (0.0-5.0) % ABG Methemoglobin (0.0-3.0) % [place] Test A-a O2 Difference mm/Hg Respiratory Index Hgb O2 Saturation (95.0-98.0) % Vent Mode Mechanical Rate FiO2 % Tidal Volume PEEP Sodium 141 (132-148) mmol/L Potassium 3.6 (3.6-5.2) mmol/L Chloride 110 H (98-107) mmol/L Carbon Dioxide 26 (22-30) mmol/L Anion Gap 9 L (10-20) BUN 18 (9-20) mg/dL Creatinine 0.8 (0.8-1.5) mg/dL Est GFR ( Amer) > 60 Est GFR (Non-Af Amer) > 60 POC Glucose (mg/dL) (65-110) mg/dL Random Glucose 104 (75-110) mg/dL Calcium 7.4 L (8.6-10.4) mg/dl Total Bilirubin 0.8 (0.2-1.3) mg/dL AST 113 H D (17-59) U/L ALT 113 H (21-72) U/L Alkaline Phosphatase 338 H (38-126) U/L Total Protein 6.0 L (6.3-8.3) g/dL Albumin 2.3 L (3.5-5.0) g/dL Globulin 3.7 (2.2-3.9) gm/dL Albumin/Globulin Ratio 0.6 L (1.0-2.1) Procalcitonin (0.19-0.49) NG/ML Vancomycin Trough 9.0 (5.0-10.0) ug/mL 04/21/18 04/21/18 04/21/18 Range/Units 05:51 05:46 05:03 WBC (4.8-10.8) K/uL RBC (4.40-5.90) Mil/uL Hgb (12.0-18.0) g/dL Hct (35.0-51.0) % MCV (80.0-94.0) fL MCH (27.0-31.0) pg MCHC (33.0-37.0) g/dL RDW (11.5-14.5) % Plt Count (130-400) K/uL MPV (7.2-11.7) fL Neut % (Auto) (50.0-75.0) % Lymph % (Auto) (20.0-40.0) % Hardin % (Auto) (0.0-10.0) % Eos % (Auto) (0.0-4.0) % Baso % (Auto) (0.0-2.0) % Neut # (Auto) (1.8-7.0) K/uL Lymph # (Auto) (1.0-4.3) K/uL Hardin # (Auto) (0.0-0.8) K/uL Eos # (Auto) (0.0-0.7) K/uL Baso # (Auto) (0.0-0.2) K/uL Neutrophils % (Manual) (50-75) % Band Neutrophils % (0-2) % Lymphocytes % (Manual) (20-40) % Monocytes % (Manual) (0-10) % Platelet Estimate (NORMAL) Large Platelets Hypochromasia (manual) Poikilocytosis (manual Anisocytosis (manual) Puncture Site R rad pCO2 43 (35-45) mm/Hg pO2 81 (80-100) mm/Hg HCO3 27.2 (21-28) mmol/L ABG pH 7.42 (7.35-7.45) ABG Total CO2 29.2 H (22-28) mmol/L ABG O2 Saturation 98.4 H (95-98) % ABG Base Excess 3.0 (-2.0-3.0) mmol/L ABG Hemoglobin 12.0 (11.7-17.4) g/dL ABG Carboxyhemoglobin 2.1 H (0.5-1.5) % POC ABG HHb (Measured) 1.6 (0.0-5.0) % ABG Methemoglobin 0.9 (0.0-3.0) % [place] Test Pos A-a O2 Difference 293.0 mm/Hg Respiratory Index 3.6 Hgb O2 Saturation 95.5 (95.0-98.0) % Vent Mode Prvc Mechanical Rate 18 FiO2 60.0 % Tidal Volume 450 PEEP 8 Sodium (132-148) mmol/L Potassium (3.6-5.2) mmol/L Chloride (98-107) mmol/L Carbon Dioxide (22-30) mmol/L Anion Gap (10-20) BUN (9-20) mg/dL Creatinine (0.8-1.5) mg/dL Est GFR ( Amer) Est GFR (Non-Af Amer) POC Glucose (mg/dL) 122 H (65-110) mg/dL Random Glucose (75-110) mg/dL Calcium (8.6-10.4) mg/dl Total Bilirubin (0.2-1.3) mg/dL AST (17-59) U/L ALT (21-72) U/L Alkaline Phosphatase (38-126) U/L Total Protein (6.3-8.3) g/dL Albumin (3.5-5.0) g/dL Globulin (2.2-3.9) gm/dL Albumin/Globulin Ratio (1.0-2.1) Procalcitonin 1.64 H (0.19-0.49) NG/ML Vancomycin Trough (5.0-10.0) ug/mL 04/21/18 04/20/18 Range/Units 00:20 17:49 WBC (4.8-10.8) K/uL RBC (4.40-5.90) Mil/uL Hgb (12.0-18.0) g/dL Hct (35.0-51.0) % MCV (80.0-94.0) fL MCH (27.0-31.0) pg MCHC (33.0-37.0) g/dL RDW (11.5-14.5) % Plt Count (130-400) K/uL MPV (7.2-11.7) fL Neut % (Auto) (50.0-75.0) % Lymph % (Auto) (20.0-40.0) % Hardin % (Auto) (0.0-10.0) % Eos % (Auto) (0.0-4.0) % Baso % (Auto) (0.0-2.0) % Neut # (Auto) (1.8-7.0) K/uL Lymph # (Auto) (1.0-4.3) K/uL Hardin # (Auto) (0.0-0.8) K/uL Eos # (Auto) (0.0-0.7) K/uL Baso # (Auto) (0.0-0.2) K/uL Neutrophils % (Manual) (50-75) % Band Neutrophils % (0-2) % Lymphocytes % (Manual) (20-40) % Monocytes % (Manual) (0-10) % Platelet Estimate (NORMAL) Large Platelets Hypochromasia (manual) Poikilocytosis (manual Anisocytosis (manual) Puncture Site pCO2 (35-45) mm/Hg pO2 (80-100) mm/Hg HCO3 (21-28) mmol/L ABG pH (7.35-7.45) ABG Total CO2 (22-28) mmol/L ABG O2 Saturation (95-98) % ABG Base Excess (-2.0-3.0) mmol/L ABG Hemoglobin (11.7-17.4) g/dL ABG Carboxyhemoglobin (0.5-1.5) % POC ABG HHb (Measured) (0.0-5.0) % ABG Methemoglobin (0.0-3.0) % [place] Test A-a O2 Difference mm/Hg Respiratory Index Hgb O2 Saturation (95.0-98.0) % Vent Mode Mechanical Rate FiO2 % Tidal Volume PEEP Sodium (132-148) mmol/L Potassium (3.6-5.2) mmol/L Chloride (98-107) mmol/L Carbon Dioxide (22-30) mmol/L Anion Gap (10-20) BUN (9-20) mg/dL Creatinine (0.8-1.5) mg/dL Est GFR ( Amer) Est GFR (Non-Af Amer) POC Glucose (mg/dL) 117 H 127 H (65-110) mg/dL Random Glucose (75-110) mg/dL Calcium (8.6-10.4) mg/dl Total Bilirubin (0.2-1.3) mg/dL AST (17-59) U/L ALT (21-72) U/L Alkaline Phosphatase (38-126) U/L Total Protein (6.3-8.3) g/dL Albumin (3.5-5.0) g/dL Globulin (2.2-3.9) gm/dL Albumin/Globulin Ratio (1.0-2.1) Procalcitonin (0.19-0.49) NG/ML Vancomycin Trough (5.0-10.0) ug/mL Laboratory Results - last 24 hr 04/20/18 04/21/18 04/21/18 17:49 00:20 05:03 WBC RBC Hgb Hct MCV MCH MCHC RDW Plt Count MPV Neut % (Auto) Lymph % (Auto) Hardin % (Auto) Eos % (Auto) Baso % (Auto) Neut # (Auto) Lymph # (Auto) Hardin # (Auto) Eos # (Auto) Baso # (Auto) Neutrophils % (Manual) Band Neutrophils % Lymphocytes % (Manual) Monocytes % (Manual) Platelet Estimate Large Platelets Hypochromasia (manual) Poikilocytosis (manual Anisocytosis (manual) Puncture Site pCO2 pO2 HCO3 ABG pH ABG Total CO2 ABG O2 Saturation ABG Base Excess ABG Hemoglobin ABG Carboxyhemoglobin POC ABG HHb (Measured) ABG Methemoglobin [place] Test A-a O2 Difference Respiratory Index Hgb O2 Saturation Vent Mode Mechanical Rate FiO2 Tidal Volume PEEP Sodium Potassium Chloride Carbon Dioxide Anion Gap BUN Creatinine Est GFR ( Amer) Est GFR (Non-Af Amer) POC Glucose (mg/dL) 127 H 117 H 122 H Random Glucose Calcium Total Bilirubin AST ALT Alkaline Phosphatase Total Protein Albumin Globulin Albumin/Globulin Ratio Procalcitonin Vancomycin Trough 04/21/18 04/21/18 04/21/18 05:46 05:51 05:51 WBC RBC Hgb Hct MCV MCH MCHC RDW Plt Count MPV Neut % (Auto) Lymph % (Auto) Hardin % (Auto) Eos % (Auto) Baso % (Auto) Neut # (Auto) Lymph # (Auto) Hardin # (Auto) Eos # (Auto) Baso # (Auto) Neutrophils % (Manual) Band Neutrophils % Lymphocytes % (Manual) Monocytes % (Manual) Platelet Estimate Large Platelets Hypochromasia (manual) Poikilocytosis (manual Anisocytosis (manual) Puncture Site R rad pCO2 43 pO2 81 HCO3 27.2 ABG pH 7.42 ABG Total CO2 29.2 H ABG O2 Saturation 98.4 H ABG Base Excess 3.0 ABG Hemoglobin 12.0 ABG Carboxyhemoglobin 2.1 H POC ABG HHb (Measured) 1.6 ABG Methemoglobin 0.9 [place] Test Pos A-a O2 Difference 293.0 Respiratory Index 3.6 Hgb O2 Saturation 95.5 Vent Mode Prvc Mechanical Rate 18 FiO2 60.0 Tidal Volume 450 PEEP 8 Sodium 141 Potassium 3.6 Chloride 110 H Carbon Dioxide 26 Anion Gap 9 L BUN 18 Creatinine 0.8 Est GFR ( Amer) > 60 Est GFR (Non-Af Amer) > 60 POC Glucose (mg/dL) Random Glucose 104 Calcium 7.4 L Total Bilirubin 0.8 AST 113 H D ALT 113 H Alkaline Phosphatase 338 H Total Protein 6.0 L Albumin 2.3 L Globulin 3.7 Albumin/Globulin Ratio 0.6 L Procalcitonin 1.64 H Vancomycin Trough 04/21/18 04/21/18 05:53 11:39 WBC 15.5 H RBC 3.91 L Hgb 11.6 L Hct 34.7 L MCV 88.8 MCH 29.6 MCHC 33.3 RDW 14.9 H Plt Count 405 H MPV 9.7 Neut % (Auto) 90.5 H Lymph % (Auto) 4.7 L Hardin % (Auto) 3.9 Eos % (Auto) 0.2 Baso % (Auto) 0.7 Neut # (Auto) 14.0 H Lymph # (Auto) 0.7 L Hardin # (Auto) 0.6 Eos # (Auto) 0.0 Baso # (Auto) 0.1 Neutrophils % (Manual) 88 H Band Neutrophils % 3 H Lymphocytes % (Manual) 5 L Monocytes % (Manual) 4 Platelet Estimate Normal Large Platelets Present Hypochromasia (manual) Slight Poikilocytosis (manual Slight Anisocytosis (manual) Slight Puncture Site pCO2 pO2 HCO3 ABG pH ABG Total CO2 ABG O2 Saturation ABG Base Excess ABG Hemoglobin ABG Carboxyhemoglobin POC ABG HHb (Measured) ABG Methemoglobin [place] Test A-a O2 Difference Respiratory Index Hgb O2 Saturation Vent Mode Mechanical Rate FiO2 Tidal Volume PEEP Sodium Potassium Chloride Carbon Dioxide Anion Gap BUN Creatinine Est GFR ( Amer) Est GFR (Non-Af Amer) POC Glucose (mg/dL) Random Glucose Calcium Total Bilirubin AST ALT Alkaline Phosphatase Total Protein Albumin Globulin Albumin/Globulin Ratio Procalcitonin Vancomycin Trough 9.0 Radiology Impressions: Radiology Impressions Chest X-Ray 04/21/18 07:29 IMPRESSION: No significant interval change compared to the prior examination(s). Critical Care Progress Note - Ventilator Checklist Head of Bed 30 Degrees: Yes Daily Sedation Vacation: Yes Daily Assessment of Readiness to Wean: Yes DVT Prophylaxis: Yes Oral Care with Chlorhexidine Gluconate {CHG}: Yes - Vent Settings MODE:: PRVC TIDAL VOLUME:: 400 RESP RATE:: 14 FIO2:: 60 PEEP:: 8 - Prophylaxis GI Prophylaxis GI: PPI - Prophylaxis DVT Prophylaxis DVT: Lovenox - Nutrition Nutrition: Nutrition Category Date Time Status NPO Diet [DIET] Diets 04/16/18 Breakfast Active Assessment/Plan - Assessment and Plan (Free Text) Plan: 43 year old male with no pmhx presenting to ED with RLQ abdominal pain, fever and chills on 04/14, constipated x 3 days, code sepsis, elevated WBC, bandemia, elevated lactate, CT shows Rt lung consolidation, most likely due to aspiration PNA vs CA PNA. thoracentesis 02/13, likely superimposed consolidation in right upper lobe as well as possible right lower lobe as per 04/15 chest xray. 02/13 intubated for worsening respiratory failure, hypoxia and DT, sedated with propofol, precedex and fentanyl drip, chest tube placed on 04/18 and EET replaced for thick purulent material observed, bronchial washing on 04/19. Neuro alcohol withdrawal syndrome with DT on 04/15 intubated - sedation with propofol, Precedex and Fentanyl still febrile - on cooling measurements Pulm hypoxic respiratory failure secondary to Community acquired PNA vs aspiration PNA with empyema. thoracenesis 04/15, empyema removed 1.2 L, intubated due to hypoxia and DT 04/15, chest tube placed 04/18 EET replaced and bronchial washing 04/19 continue to be intubated, PRVC 14/400/8/60 CTA - no evidence of PE CT Chest - decreased right pleural effusion, extensive right lower lobe atelectasis with right middle lobe and left lower lobe subsegmental atelectasis. Small left pleural effusion. No pneumothroax. chest tube drainage 200cc Chest xray 04/21 - B/l pleural effusion left smaller than right, chest tube identified in right pleural space coursing medially, tip is directed in caudal orientation abx - Clinda, vanco Meropenem Cardio thoracic sx consult - Dr Meza - f/u recs continue Duonebs Cardio HR 90s, BP wnl continue to monitor GI Tube feedings Jevity initial rate @ 20, increase 20, goal at 45 NPO last BM on water and soap enema ordered cont dave fontaine Renal monitor urine output Potassium low today - repleted replete electrolytes as needed renal function wnl - continue to monitor ID today WBC 15 band decreased to 2 continue Meropenem Q8, Vanco Q12H, Clinda Q8H Vanco through ordered - f/u Legionella, flu - negative Pleural fluid - no growth after 3 days normal saprophytic john paul from bronchial washings Dr Spring - ID follow up recs HIV, Hep, atypicals - negative PPX DVT: lovenox GI: protonix Multivit, thiamine, Folic acid Ibuprofen 400mg PO Q6H PRN Plan discussed with Dr Juan Carlos Tate, PGY-1 - Date & Time Date: 04/21/18 Time: 09:00 <Ulises Rangel S - Last Filed: 04/21/18 18:21> CCU Subjective - Physician Review Critical Care Time Spent (in minutes): 45 CCU Objective - Vital Signs / Intake & Output Vital Signs (Last 4 hours): Vital Signs Temp Pulse Resp BP Pulse Ox 04/21/18 18:00 85 26 H 96 04/21/18 17:33 85 27 H 98/51 L 95 04/21/18 17:00 98.5 F 91 H 20 106/66 73 L 04/21/18 16:33 83 25 H 106/66 93 L 04/21/18 16:00 83 29 H 92 L 04/21/18 15:00 85 29 H 93 L 04/21/18 14:33 92 H 21 107/60 70 L Intake and Output (Last 8hrs): Intake & Output 04/21/18 04/21/18 04/21/18 06:59 14:59 22:59 Intake Total 1739.6 1579.6 1014.8 Output Total 640 450 370 Balance 1099.6 1129.6 644.8 Weight 220 lb Intake: IV 400 550 150 Intake, IV Amount 959.6 709.6 704.8 Left Hand 450 200 450 Right Forearm 268.0 268.0 134.0 Right Hand 92.8 92.8 46.4 Right Upper arm 148.8 148.8 74.4 Tube Feeding 320 320 160 Other 60 Output: Chest Tube Drainage 90 Right Anterior Chest 90 Urine 550 450 370 Urethral (Peña) 550 450 370 Other: # Bowel Movements 0 0 - Medications Active Medications: Active Medications Generic Name Dose Route Start Last Admin Trade Name Freq PRN Reason Stop Dose Admin Albuterol/Ipratropium 3 ml 04/15/18 08:00 04/21/18 13:45 Duoneb 3 Mg/0.5 Mg (3 Ml) Ud INH 3 ml RQ6 JESUS Administration Docusate Sodium 100 mg 04/14/18 18:30 04/21/18 17:57 Colace PO 100 mg TID JESUS Administration Enoxaparin Sodium 100 mg 04/21/18 22:00 Lovenox SC Q12 JESUS Folic Acid 1 mg 04/14/18 10:00 04/21/18 10:07 Folic Acid PO 1 mg DAILY JESUS Administration Propofol 1,000 mg in 100 mls @ 2.79 mls/hr 04/15/18 21:20 04/21/18 16:22 Diprivan IV 60 mcg/kg/min .Q24H PRN 33 mls/hr Agitation Administration Protocol 5 MCG/KG/MIN Meropenem 1 gm/ Sodium 100 mls @ 100 mls/hr 04/16/18 21:00 04/21/18 12:43 Chloride IVPB 100 mls/hr Q8H JESUS Administration Protocol Clindamycin Phosphate 900 mg/ 106 mls @ 100 mls/hr 04/16/18 23:30 04/21/18 17:11 Sodium Chloride IV 100 mls/hr Q8H JESUS Administration Protocol Dexmedetomidine HCl 200 mcg/ 50 mls @ 4.65 mls/hr 04/17/18 15:56 04/21/18 17:24 Sodium Chloride IV 0.5 mcg/kg/hr TITR PRN 11.63 mls/hr Agitation Administration Protocol 0.2 MCG/KG/HR Fentanyl Citrate 2,500 mcg/ 250 mls @ 19.92 mls/hr 04/19/18 22:00 04/21/18 13:43 Sodium Chloride IV 2 mcg/kg/hr .[id number] JESUS 19.92 mls/hr Administration Protocol 2 MCG/KG/HR Vancomycin HCl 1,500 mg/ 500 mls @ 200 mls/hr 04/22/18 03:00 Sodium Chloride IVPB Q12H JESUS Protocol Gentamicin Sulfate 80 mg/ 102 mls @ 100 mls/hr 04/21/18 16:00 04/21/18 17:50 Sodium Chloride IVPB 100 mls/hr Q8H JESUS Administration Protocol Ibuprofen 400 mg 04/19/18 03:31 04/21/18 10:32 Motrin Tab PO 400 mg Q6H PRN Administration fever Lactobacillus Acidophilus 1 cap 04/14/18 18:45 04/21/18 17:57 Bacid Acidophilus PO 1 cap BID JESUS Administration Multivitamins 1 tab 04/14/18 10:00 04/21/18 10:07 Hexavitamin PO 1 tab DAILY JESUS Administration Pantoprazole Sodium 40 mg 04/14/18 10:00 04/21/18 10:08 Protonix Inj IVP 40 mg DAILY JESUS Administration Sennosides 8.6 mg 04/14/18 00:15 04/21/18 18:00 Senokot Tab PO 8.6 mg BID JESUS Administration Thiamine HCl 100 mg 04/14/18 10:00 04/21/18 10:08 Vitamin B1 Tab PO 100 mg DAILY JESUS Administration - Patient Studies Lab Studies: Microbiology Studies 04/18/18 17:49 Gram Stain - Final Pleural Fluid Body Fluid Culture - Preliminary NO GROWTH AFTER 3 DAYS 04/19/18 14:23 Gram Stain - Final Bronchial Washings Bronchial Culture - Final NORMAL SAPROPHYTIC JOHN PAUL Fungal Culture - Preliminary 04/18/18 17:49 Anaerobic Culture - Final Pleural Fluid NO ANAEROBES ISOLATED. Fungal Culture - Preliminary 04/18/18 17:49 Mycobacterial Culture - Preliminary Other: Please Indicate Lab Studies 04/21/18 04/21/18 04/21/18 Range/Units 17:28 17:04 11:39 WBC (4.8-10.8) K/uL RBC (4.40-5.90) Mil/uL Hgb (12.0-18.0) g/dL Hct (35.0-51.0) % MCV (80.0-94.0) fL MCH (27.0-31.0) pg MCHC (33.0-37.0) g/dL RDW (11.5-14.5) % Plt Count (130-400) K/uL MPV (7.2-11.7) fL Neut % (Auto) (50.0-75.0) % Lymph % (Auto) (20.0-40.0) % Hardin % (Auto) (0.0-10.0) % Eos % (Auto) (0.0-4.0) % Baso % (Auto) (0.0-2.0) % Neut # (Auto) (1.8-7.0) K/uL Lymph # (Auto) (1.0-4.3) K/uL Hardin # (Auto) (0.0-0.8) K/uL Eos # (Auto) (0.0-0.7) K/uL Baso # (Auto) (0.0-0.2) K/uL Neutrophils % (Manual) (50-75) % Band Neutrophils % (0-2) % Lymphocytes % (Manual) (20-40) % Monocytes % (Manual) (0-10) % Platelet Estimate (NORMAL) Large Platelets Hypochromasia (manual) Poikilocytosis (manual Anisocytosis (manual) Puncture Site pCO2 (35-45) mm/Hg pO2 (80-100) mm/Hg HCO3 (21-28) mmol/L ABG pH (7.35-7.45) ABG Total CO2 (22-28) mmol/L ABG O2 Saturation (95-98) % ABG Base Excess (-2.0-3.0) mmol/L ABG Hemoglobin (11.7-17.4) g/dL ABG Carboxyhemoglobin (0.5-1.5) % POC ABG HHb (Measured) (0.0-5.0) % ABG Methemoglobin (0.0-3.0) % [place] Test A-a O2 Difference mm/Hg Respiratory Index Hgb O2 Saturation (95.0-98.0) % Vent Mode Mechanical Rate FiO2 % Tidal Volume PEEP Sodium (132-148) mmol/L Potassium (3.6-5.2) mmol/L Chloride (98-107) mmol/L Carbon Dioxide (22-30) mmol/L Anion Gap (10-20) BUN (9-20) mg/dL Creatinine (0.8-1.5) mg/dL Est GFR ( Amer) Est GFR (Non-Af Amer) POC Glucose (mg/dL) 105 (65-110) mg/dL Random Glucose (75-110) mg/dL Calcium (8.6-10.4) mg/dl Total Bilirubin (0.2-1.3) mg/dL AST (17-59) U/L ALT (21-72) U/L Alkaline Phosphatase (38-126) U/L Total Protein (6.3-8.3) g/dL Albumin (3.5-5.0) g/dL Globulin (2.2-3.9) gm/dL Albumin/Globulin Ratio (1.0-2.1) Procalcitonin (0.19-0.49) NG/ML Urine Color [place] (YELLOW) Urine Clarity Hazy (Clear) Urine pH 5.0 (5.0-8.0) Ur Specific [place] 1.030 (1.003-1.030) Urine Protein 2+ H (NEGATIVE) mg/dL Urine Glucose (UA) Normal (Normal) mg/dL Urine Ketones Negative (NEGATIVE) mg/dL Urine Blood Trace H (NEGATIVE) Urine Nitrate Negative (NEGATIVE) Urine Bilirubin Negative (NEGATIVE) Urine Urobilinogen Normal (0.2-1.0) mg/dL Ur Leukocyte Esterase Neg (Negative) Martine/uL Urine WBC (Auto) 3 (0-5) /hpf Urine RBC (Auto) 16 H (0-3) /hpf Ur Squamous Epith Cells < 1 (0-5) /hpf Urine Bacteria Occ H (<OCC) Vancomycin Trough 9.0 (5.0-10.0) ug/mL 04/21/18 04/21/18 04/21/18 Range/Units 11:20 05:53 05:51 WBC 15.5 H (4.8-10.8) K/uL RBC 3.91 L (4.40-5.90) Mil/uL Hgb 11.6 L (12.0-18.0) g/dL Hct 34.7 L (35.0-51.0) % MCV 88.8 (80.0-94.0) fL MCH 29.6 (27.0-31.0) pg MCHC 33.3 (33.0-37.0) g/dL RDW 14.9 H (11.5-14.5) % Plt Count 405 H (130-400) K/uL MPV 9.7 (7.2-11.7) fL Neut % (Auto) 90.5 H (50.0-75.0) % Lymph % (Auto) 4.7 L (20.0-40.0) % [place] % (Auto) 3.9 (0.0-10.0) % Eos % (Auto) 0.2 (0.0-4.0) % Baso % (Auto) 0.7 (0.0-2.0) % Neut # (Auto) 14.0 H (1.8-7.0) K/uL Lymph # (Auto) 0.7 L (1.0-4.3) K/uL [place] # (Auto) 0.6 (0.0-0.8) K/uL Eos # (Auto) 0.0 (0.0-0.7) K/uL Baso # (Auto) 0.1 (0.0-0.2) K/uL Neutrophils % (Manual) 88 H (50-75) % Band Neutrophils % 3 H (0-2) % Lymphocytes % (Manual) 5 L (20-40) % Monocytes % (Manual) 4 (0-10) % Platelet Estimate Normal (NORMAL) Large Platelets Present Hypochromasia (manual) Slight Poikilocytosis (manual Slight Anisocytosis (manual) Slight Puncture Site pCO2 (35-45) mm/Hg pO2 (80-100) mm/Hg HCO3 (21-28) mmol/L ABG pH (7.35-7.45) ABG Total CO2 (22-28) mmol/L ABG O2 Saturation (95-98) % ABG Base Excess (-2.0-3.0) mmol/L ABG Hemoglobin (11.7-17.4) g/dL ABG Carboxyhemoglobin (0.5-1.5) % POC ABG HHb (Measured) (0.0-5.0) % ABG Methemoglobin (0.0-3.0) % [place] Test A-a O2 Difference mm/Hg Respiratory Index Hgb O2 Saturation (95.0-98.0) % Vent Mode Mechanical Rate FiO2 % Tidal Volume PEEP Sodium 141 (132-148) mmol/L Potassium 3.6 (3.6-5.2) mmol/L Chloride 110 H (98-107) mmol/L Carbon Dioxide 26 (22-30) mmol/L Anion Gap 9 L (10-20) BUN 18 (9-20) mg/dL Creatinine 0.8 (0.8-1.5) mg/dL Est GFR ( Amer) > 60 Est GFR (Non-Af Amer) > 60 POC Glucose (mg/dL) 127 H (65-110) mg/dL Random Glucose 104 (75-110) mg/dL Calcium 7.4 L (8.6-10.4) mg/dl Total Bilirubin 0.8 (0.2-1.3) mg/dL AST 113 H D (17-59) U/L ALT 113 H (21-72) U/L Alkaline Phosphatase 338 H (38-126) U/L Total Protein 6.0 L (6.3-8.3) g/dL Albumin 2.3 L (3.5-5.0) g/dL Globulin 3.7 (2.2-3.9) gm/dL Albumin/Globulin Ratio 0.6 L (1.0-2.1) Procalcitonin (0.19-0.49) NG/ML Urine Color (YELLOW) Urine Clarity (Clear) Urine pH (5.0-8.0) Ur Specific [place] (1.003-1.030) Urine Protein (NEGATIVE) mg/dL Urine Glucose (UA) (Normal) mg/dL Urine Ketones (NEGATIVE) mg/dL Urine Blood (NEGATIVE) Urine Nitrate (NEGATIVE) Urine Bilirubin (NEGATIVE) Urine Urobilinogen (0.2-1.0) mg/dL Ur Leukocyte Esterase (Negative) Martine/uL Urine WBC (Auto) (0-5) /hpf Urine RBC (Auto) (0-3) /hpf Ur Squamous Epith Cells (0-5) /hpf Urine Bacteria (<OCC) Vancomycin Trough (5.0-10.0) ug/mL 04/21/18 04/21/18 04/21/18 Range/Units 05:51 05:46 05:03 WBC (4.8-10.8) K/uL RBC (4.40-5.90) Mil/uL Hgb (12.0-18.0) g/dL Hct (35.0-51.0) % MCV (80.0-94.0) fL MCH (27.0-31.0) pg MCHC (33.0-37.0) g/dL RDW (11.5-14.5) % Plt Count (130-400) K/uL MPV (7.2-11.7) fL Neut % (Auto) (50.0-75.0) % Lymph % (Auto) (20.0-40.0) % [place] % (Auto) (0.0-10.0) % Eos % (Auto) (0.0-4.0) % Baso % (Auto) (0.0-2.0) % Neut # (Auto) (1.8-7.0) K/uL Lymph # (Auto) (1.0-4.3) K/uL [place] # (Auto) (0.0-0.8) K/uL Eos # (Auto) (0.0-0.7) K/uL Baso # (Auto) (0.0-0.2) K/uL Neutrophils % (Manual) (50-75) % Band Neutrophils % (0-2) % Lymphocytes % (Manual) (20-40) % Monocytes % (Manual) (0-10) % Platelet Estimate (NORMAL) Large Platelets Hypochromasia (manual) Poikilocytosis (manual Anisocytosis (manual) Puncture Site R rad pCO2 43 (35-45) mm/Hg pO2 81 (80-100) mm/Hg HCO3 27.2 (21-28) mmol/L ABG pH 7.42 (7.35-7.45) ABG Total CO2 29.2 H (22-28) mmol/L ABG O2 Saturation 98.4 H (95-98) % ABG Base Excess 3.0 (-2.0-3.0) mmol/L ABG Hemoglobin 12.0 (11.7-17.4) g/dL ABG Carboxyhemoglobin 2.1 H (0.5-1.5) % POC ABG HHb (Measured) 1.6 (0.0-5.0) % ABG Methemoglobin 0.9 (0.0-3.0) % [place] Test Pos A-a O2 Difference 293.0 mm/Hg Respiratory Index 3.6 Hgb O2 Saturation 95.5 (95.0-98.0) % Vent Mode Prvc Mechanical Rate 18 FiO2 60.0 % Tidal Volume 450 PEEP 8 Sodium (132-148) mmol/L Potassium (3.6-5.2) mmol/L Chloride (98-107) mmol/L Carbon Dioxide (22-30) mmol/L Anion Gap (10-20) BUN (9-20) mg/dL Creatinine (0.8-1.5) mg/dL Est GFR ( Amer) Est GFR (Non-Af Amer) POC Glucose (mg/dL) 122 H (65-110) mg/dL Random Glucose (75-110) mg/dL Calcium (8.6-10.4) mg/dl Total Bilirubin (0.2-1.3) mg/dL AST (17-59) U/L ALT (21-72) U/L Alkaline Phosphatase (38-126) U/L Total Protein (6.3-8.3) g/dL Albumin (3.5-5.0) g/dL Globulin (2.2-3.9) gm/dL Albumin/Globulin Ratio (1.0-2.1) Procalcitonin 1.64 H (0.19-0.49) NG/ML Urine Color (YELLOW) Urine Clarity (Clear) Urine pH (5.0-8.0) Ur Specific [place] (1.003-1.030) Urine Protein (NEGATIVE) mg/dL Urine Glucose (UA) (Normal) mg/dL Urine Ketones (NEGATIVE) mg/dL Urine Blood (NEGATIVE) Urine Nitrate (NEGATIVE) Urine Bilirubin (NEGATIVE) Urine Urobilinogen (0.2-1.0) mg/dL Ur Leukocyte Esterase (Negative) Martine/uL Urine WBC (Auto) (0-5) /hpf Urine RBC (Auto) (0-3) /hpf Ur Squamous Epith Cells (0-5) /hpf Urine Bacteria (<OCC) Vancomycin Trough (5.0-10.0) ug/mL 04/21/18 Range/Units 00:20 WBC (4.8-10.8) K/uL RBC (4.40-5.90) Mil/uL Hgb (12.0-18.0) g/dL Hct (35.0-51.0) % MCV (80.0-94.0) fL MCH (27.0-31.0) pg MCHC (33.0-37.0) g/dL RDW (11.5-14.5) % Plt Count (130-400) K/uL MPV (7.2-11.7) fL Neut % (Auto) (50.0-75.0) % Lymph % (Auto) (20.0-40.0) % [place] % (Auto) (0.0-10.0) % Eos % (Auto) (0.0-4.0) % Baso % (Auto) (0.0-2.0) % Neut # (Auto) (1.8-7.0) K/uL Lymph # (Auto) (1.0-4.3) K/uL [place] # (Auto) (0.0-0.8) K/uL Eos # (Auto) (0.0-0.7) K/uL Baso # (Auto) (0.0-0.2) K/uL Neutrophils % (Manual) (50-75) % Band Neutrophils % (0-2) % Lymphocytes % (Manual) (20-40) % Monocytes % (Manual) (0-10) % Platelet Estimate (NORMAL) Large Platelets Hypochromasia (manual) Poikilocytosis (manual Anisocytosis (manual) Puncture Site pCO2 (35-45) mm/Hg pO2 (80-100) mm/Hg HCO3 (21-28) mmol/L ABG pH (7.35-7.45) ABG Total CO2 (22-28) mmol/L ABG O2 Saturation (95-98) % ABG Base Excess (-2.0-3.0) mmol/L ABG Hemoglobin (11.7-17.4) g/dL ABG Carboxyhemoglobin (0.5-1.5) % POC ABG HHb (Measured) (0.0-5.0) % ABG Methemoglobin (0.0-3.0) % [place] Test A-a O2 Difference mm/Hg Respiratory Index Hgb O2 Saturation (95.0-98.0) % Vent Mode Mechanical Rate FiO2 % Tidal Volume PEEP Sodium (132-148) mmol/L Potassium (3.6-5.2) mmol/L Chloride (98-107) mmol/L Carbon Dioxide (22-30) mmol/L Anion Gap (10-20) BUN (9-20) mg/dL Creatinine (0.8-1.5) mg/dL Est GFR ( Amer) Est GFR (Non-Af Amer) POC Glucose (mg/dL) 117 H (65-110) mg/dL Random Glucose (75-110) mg/dL Calcium (8.6-10.4) mg/dl Total Bilirubin (0.2-1.3) mg/dL AST (17-59) U/L ALT (21-72) U/L Alkaline Phosphatase (38-126) U/L Total Protein (6.3-8.3) g/dL Albumin (3.5-5.0) g/dL Globulin (2.2-3.9) gm/dL Albumin/Globulin Ratio (1.0-2.1) Procalcitonin (0.19-0.49) NG/ML Urine Color (YELLOW) Urine Clarity (Clear) Urine pH (5.0-8.0) Ur Specific [place] (1.003-1.030) Urine Protein (NEGATIVE) mg/dL Urine Glucose (UA) (Normal) mg/dL Urine Ketones (NEGATIVE) mg/dL Urine Blood (NEGATIVE) Urine Nitrate (NEGATIVE) Urine Bilirubin (NEGATIVE) Urine Urobilinogen (0.2-1.0) mg/dL Ur Leukocyte Esterase (Negative) Martine/uL Urine WBC (Auto) (0-5) /hpf Urine RBC (Auto) (0-3) /hpf Ur Squamous Epith Cells (0-5) /hpf Urine Bacteria (<OCC) Vancomycin Trough (5.0-10.0) ug/mL Laboratory Results - last 24 hr 04/21/18 04/21/18 04/21/18 00:20 05:03 05:46 WBC RBC Hgb Hct MCV MCH MCHC RDW Plt Count MPV Neut % (Auto) Lymph % (Auto) [place] % (Auto) Eos % (Auto) Baso % (Auto) Neut # (Auto) Lymph # (Auto) [place] # (Auto) Eos # (Auto) Baso # (Auto) Neutrophils % (Manual) Band Neutrophils % Lymphocytes % (Manual) Monocytes % (Manual) Platelet Estimate Large Platelets Hypochromasia (manual) Poikilocytosis (manual Anisocytosis (manual) Puncture Site R rad pCO2 43 pO2 81 HCO3 27.2 ABG pH 7.42 ABG Total CO2 29.2 H ABG O2 Saturation 98.4 H ABG Base Excess 3.0 ABG Hemoglobin 12.0 ABG Carboxyhemoglobin 2.1 H POC ABG HHb (Measured) 1.6 ABG Methemoglobin 0.9 [place] Test Pos A-a O2 Difference 293.0 Respiratory Index 3.6 Hgb O2 Saturation 95.5 Vent Mode Prvc Mechanical Rate 18 FiO2 60.0 Tidal Volume 450 PEEP 8 Sodium Potassium Chloride Carbon Dioxide Anion Gap BUN Creatinine Est GFR ( Amer) Est GFR (Non-Af Amer) POC Glucose (mg/dL) 117 H 122 H Random Glucose Calcium Total Bilirubin AST ALT Alkaline Phosphatase Total Protein Albumin Globulin Albumin/Globulin Ratio Procalcitonin Urine Color Urine Clarity Urine pH Ur Specific [place] Urine Protein Urine Glucose (UA) Urine Ketones Urine Blood Urine Nitrate Urine Bilirubin Urine Urobilinogen Ur Leukocyte Esterase Urine WBC (Auto) Urine RBC (Auto) Ur Squamous Epith Cells Urine Bacteria Vancomycin Trough 04/21/18 04/21/18 04/21/18 05:51 05:51 05:53 WBC 15.5 H RBC 3.91 L Hgb 11.6 L Hct 34.7 L MCV 88.8 MCH 29.6 MCHC 33.3 RDW 14.9 H Plt Count 405 H MPV 9.7 Neut % (Auto) 90.5 H Lymph % (Auto) 4.7 L [place] % (Auto) 3.9 Eos % (Auto) 0.2 Baso % (Auto) 0.7 Neut # (Auto) 14.0 H Lymph # (Auto) 0.7 L [place] # (Auto) 0.6 Eos # (Auto) 0.0 Baso # (Auto) 0.1 Neutrophils % (Manual) 88 H Band Neutrophils % 3 H Lymphocytes % (Manual) 5 L Monocytes % (Manual) 4 Platelet Estimate Normal Large Platelets Present Hypochromasia (manual) Slight Poikilocytosis (manual Slight Anisocytosis (manual) Slight Puncture Site pCO2 pO2 HCO3 ABG pH ABG Total CO2 ABG O2 Saturation ABG Base Excess ABG Hemoglobin ABG Carboxyhemoglobin POC ABG HHb (Measured) ABG Methemoglobin [place] Test A-a O2 Difference Respiratory Index Hgb O2 Saturation Vent Mode Mechanical Rate FiO2 Tidal Volume PEEP Sodium 141 Potassium 3.6 Chloride 110 H Carbon Dioxide 26 Anion Gap 9 L BUN 18 Creatinine 0.8 Est GFR ( Amer) > 60 Est GFR (Non-Af Amer) > 60 POC Glucose (mg/dL) Random Glucose 104 Calcium 7.4 L Total Bilirubin 0.8 AST 113 H D ALT 113 H Alkaline Phosphatase 338 H Total Protein 6.0 L Albumin 2.3 L Globulin 3.7 Albumin/Globulin Ratio 0.6 L Procalcitonin 1.64 H Urine Color Urine Clarity Urine pH Ur Specific [place] Urine Protein Urine Glucose (UA) Urine Ketones Urine Blood Urine Nitrate Urine Bilirubin Urine Urobilinogen Ur Leukocyte Esterase Urine WBC (Auto) Urine RBC (Auto) Ur Squamous Epith Cells Urine Bacteria Vancomycin Trough 04/21/18 04/21/18 04/21/18 11:20 11:39 17:04 WBC RBC Hgb Hct MCV MCH MCHC RDW Plt Count MPV Neut % (Auto) Lymph % (Auto) [place] % (Auto) Eos % (Auto) Baso % (Auto) Neut # (Auto) Lymph # (Auto) [place] # (Auto) Eos # (Auto) Baso # (Auto) Neutrophils % (Manual) Band Neutrophils % Lymphocytes % (Manual) Monocytes % (Manual) Platelet Estimate Large Platelets Hypochromasia (manual) Poikilocytosis (manual Anisocytosis (manual) Puncture Site pCO2 pO2 HCO3 ABG pH ABG Total CO2 ABG O2 Saturation ABG Base Excess ABG Hemoglobin ABG Carboxyhemoglobin POC ABG HHb (Measured) ABG Methemoglobin [place] Test A-a O2 Difference Respiratory Index Hgb O2 Saturation Vent Mode Mechanical Rate FiO2 Tidal Volume PEEP Sodium Potassium Chloride Carbon Dioxide Anion Gap BUN Creatinine Est GFR ( Amer) Est GFR (Non-Af Amer) POC Glucose (mg/dL) 127 H Random Glucose Calcium Total Bilirubin AST ALT Alkaline Phosphatase Total Protein Albumin Globulin Albumin/Globulin Ratio Procalcitonin Urine Color [place] Urine Clarity Hazy Urine pH 5.0 Ur Specific [place] 1.030 Urine Protein 2+ H Urine Glucose (UA) Normal Urine Ketones Negative Urine Blood Trace H Urine Nitrate Negative Urine Bilirubin Negative Urine Urobilinogen Normal Ur Leukocyte Esterase Neg Urine WBC (Auto) 3 Urine RBC (Auto) 16 H Ur Squamous Epith Cells < 1 Urine Bacteria Occ H Vancomycin Trough 9.0 04/21/18 17:28 WBC RBC Hgb Hct MCV MCH MCHC RDW Plt Count MPV Neut % (Auto) Lymph % (Auto) [place] % (Auto) Eos % (Auto) Baso % (Auto) Neut # (Auto) Lymph # (Auto) [place] # (Auto) Eos # (Auto) Baso # (Auto) Neutrophils % (Manual) Band Neutrophils % Lymphocytes % (Manual) Monocytes % (Manual) Platelet Estimate Large Platelets Hypochromasia (manual) Poikilocytosis (manual Anisocytosis (manual) Puncture Site pCO2 pO2 HCO3 ABG pH ABG Total CO2 ABG O2 Saturation ABG Base Excess ABG Hemoglobin ABG Carboxyhemoglobin POC ABG HHb (Measured) ABG Methemoglobin [place] Test A-a O2 Difference Respiratory Index Hgb O2 Saturation Vent Mode Mechanical Rate FiO2 Tidal Volume PEEP Sodium Potassium Chloride Carbon Dioxide Anion Gap BUN Creatinine Est GFR ( Amer) Est GFR (Non-Af Amer) POC Glucose (mg/dL) 105 Random Glucose Calcium Total Bilirubin AST ALT Alkaline Phosphatase Total Protein Albumin Globulin Albumin/Globulin Ratio Procalcitonin Urine Color Urine Clarity Urine pH Ur Specific [place] Urine Protein Urine Glucose (UA) Urine Ketones Urine Blood Urine Nitrate Urine Bilirubin Urine Urobilinogen Ur Leukocyte Esterase Urine WBC (Auto) Urine RBC (Auto) Ur Squamous Epith Cells Urine Bacteria Vancomycin Trough Radiology Impressions: Radiology Impressions Chest X-Ray 04/21/18 07:29 IMPRESSION: No significant interval change compared to the prior examination(s). Critical Care Progress Note - Nutrition Nutrition: Nutrition Category Date Time Status NPO Diet [DIET] Diets 04/16/18 Breakfast Active Attending/Attestation - Attestation I have personally seen and examined this patient.: Yes I have fully participated in the care of the patient.: Yes I have reviewed all pertinent clinical information: Yes Notes (Text): 04/21/18 18:20 Patient seen and examined in the intensive care unit. Patient remained intubated on ventilatory support Chest tube in place and draining fluid On IV antibiotics as per infectious disease Will need decortication/VATS and surgery aware of that Reduce FiO2 as tolerated
[2018-04-21 17:19] LABS: SQUAMOUS EPITHIAL < 1 /hpf (0-5); URINE BACTERIA OCC (<OCC); URINE BILIRUBIN NEGATIVE (NEGATIVE); URINE CLARITY Hazy (Clear); URINE COLOR Amber (YELLOW); URINE GLUCOSE (UA) NORMAL (Normal); URINE LEUKOCYTE ESTERASE NEG Leu/uL (Negative); URINE PROTEIN 2+ mg/dL (NEGATIVE); URINE UROBILINOGEN NORMAL mg/dL (0.2-1.0)
[2018-04-21 17:21] LABS: URINE BLOOD TRACE (NEGATIVE)
[2018-04-21 20:45] LABS: GLUCOSE PLEURAL FLUID <10 mg/dL; TOTAL PROTEIN PLEURAL FLUID 4.1 g/dL
[2018-04-21] MEDS: Enoxaparin 100 mg Syringe SC SCH (21:32)
[2018-04-21] MEDS ORDERED: Enoxaparin 80 mg Syringe SC SCH (22:00)
--- NOTE | 2018-04-21 22:13 | CP.PCM.PN ---
Subjective - Date & Time of Evaluation Date of Evaluation: 04/21/18 Time of Evaluation: 16:00 - Subjective Subjective: dictated Objective - Vital Signs/Intake and Output Vital Signs (last 24 hours): Temp Pulse Resp BP Pulse Ox 98.5 F 85 27 H 95/51 L 96 04/21/18 17:00 04/21/18 19:00 04/21/18 19:00 04/21/18 18:33 04/21/18 19:00 Intake and Output: 04/21/18 04/22/18 18:59 06:59 Intake Total 2594.4 353.7 Output Total 820 115 Balance 1774.4 238.7 - Medications Medications: Current Medications Albuterol/Ipratropium (Duoneb 3 Mg/0.5 Mg (3 Ml) Ud) 3 ml INH RQ6 [facility] Last Admin: 04/21/18 19:30 Dose: 3 ml Docusate Sodium (Colace) 100 mg PO TID [facility] Last Admin: 04/21/18 17:57 Dose: 100 mg Enoxaparin Sodium (Lovenox) 100 mg SC Q12 [facility] Last Admin: 04/21/18 21:32 Dose: 100 mg Folic Acid (Folic Acid) 1 mg PO DAILY [facility] Last Admin: 04/21/18 10:07 Dose: 1 mg Propofol (Diprivan) 1,000 mg in 100 mls @ 2.79 mls/hr IV .Q24H PRN; Protocol PRN Reason: Agitation Last Admin: 04/21/18 22:05 Dose: 60 mcg/kg/min, 33 mls/hr Meropenem 1 gm/ Sodium (Chloride) 100 mls @ 100 mls/hr IVPB Q8H [facility]; Protocol Last Admin: 04/21/18 21:00 Dose: 100 mls/hr Clindamycin Phosphate 900 mg/ (Sodium Chloride) 106 mls @ 100 mls/hr IV Q8H [facility]; Protocol Last Admin: 04/21/18 17:11 Dose: 100 mls/hr Dexmedetomidine HCl 200 mcg/ (Sodium Chloride) 50 mls @ 4.65 mls/hr IV TITR PRN; Protocol PRN Reason: Agitation Last Admin: 04/21/18 21:47 Dose: 0.5 mcg/kg/hr, 11.63 mls/hr Fentanyl Citrate 2,500 mcg/ (Sodium Chloride) 250 mls @ 19.92 mls/hr IV .[id number] [facility]; Protocol Last Admin: 04/21/18 13:43 Dose: 2 mcg/kg/hr, 19.92 mls/hr Vancomycin HCl 1,500 mg/ (Sodium Chloride) 500 mls @ 200 mls/hr IVPB Q12H [facility]; Protocol Gentamicin Sulfate 80 mg/ (Sodium Chloride) 102 mls @ 100 mls/hr IVPB Q8H [facility]; Protocol Last Admin: 04/21/18 17:50 Dose: 100 mls/hr Ibuprofen (Motrin Tab) 400 mg PO Q6H PRN PRN Reason: fever Last Admin: 04/21/18 10:32 Dose: 400 mg Lactobacillus Acidophilus (Bacid Acidophilus) 1 cap PO BID [facility] Last Admin: 04/21/18 17:57 Dose: 1 cap Multivitamins (Hexavitamin) 1 tab PO DAILY [facility] Last Admin: 04/21/18 10:07 Dose: 1 tab Pantoprazole Sodium (Protonix Inj) 40 mg IVP DAILY [facility] Last Admin: 04/21/18 10:08 Dose: 40 mg Sennosides (Senokot Tab) 8.6 mg PO BID [facility] Last Admin: 04/21/18 18:00 Dose: 8.6 mg Thiamine HCl (Vitamin B1 Tab) 100 mg PO DAILY [facility] Last Admin: 04/21/18 10:08 Dose: 100 mg - Labs Labs: 04/21/18 05:53 04/21/18 05:51 PT 13.0 SECONDS (9.7-12.2) H 04/15/18 16:25 INR 1.2 04/15/18 16:25 APTT 35 SECONDS (21-34) H 04/15/18 16:25
[2018-04-22] MEDS: Propofol 10 mg/ml 1,000 MG/100 ML VIAL IV PRN ×8 (01:05→22:33)
[2018-04-22] MEDS: Dexmedetomidine Hydrochloride 200 MCG in Sodium Chloride 0.9% 48 ML IV PRN ×5 (02:00→22:30)
[2018-04-22] MEDS: Albuterol-Ipratrop 3 mg / 0.5 (3 ml) UD INH SCH ×4 (02:22→19:26)
--- NOTE | 2018-04-22 02:27 | PN ---
DATE: 04/21/2018 SUBJECTIVE: The patient remains on the ventilator. He was still spiking temps in spite of being on vancomycin, meropenem and clindamycin and has a chest tube, I am not sure if it is draining much, as he has empyema. The patient's family member was also in the room. His temperature was 102.5 when I saw and I told them to give gentamicin. OBJECTIVE: VITAL SIGNS: Pulse is 83, respirations are 25, saturation remains 93. HEENT: Head is atraumatic and normocephalic. NECK: Supple. LUNGS: Have bilateral rhonchi. HEART: S1, S2 is tachy. ABDOMEN: Soft, nontender. EXTREMITIES: Have no edema. LABORATORY DATA: Noted. Labs show that white count is 15.5 today, hemoglobin 11.6, hematocrit 34.7, platelet count is 405 and still remains with 90.5 neutrophils. However, bandemia has decreased. His oxygenation is noted on the ventilator. BUN is 18, creatinine 0.8, alk phos is 338. AST, ALT is elevated. He does have alcohol-related abuse. UA shows blood trace. RBC 16. Vancomycin trough was 9, so we will increase the dose to 1500 mg every 12 hours. Also, his cultures have been all negative. An AFB done on the pleural fluid shows AFB positive. At this time, we will add gentamicin and also doing up upper and lower extremity Dopplers. The x-ray which was done today shows no significant change compared to the prior exams. He also had a chest CT yesterday and chest CT shows decreased right pleural effusion, right chest tube withy extensive right lower lobe atelectasis, right middle lobe and left lower lobe subsegmental atelectasis, small left pleural effusion. No pneumothorax, ET tube and NG tube is noted. So there is decreased right pleural effusion. I am just hoping that he does not need, but if he does not improve, he needs decortication or video-assisted thoracoscopic surgery procedure, but at this time, I would add gentamicin daily till he becomes afebrile and will continue with other antibiotics. He still remains acutely ill. Renea Spring MD
[2018-04-22] MEDS: Meropenem 1 GM in Sodium Chloride 0.9% 100 ML IVPB SCH ×3 (04:34→21:30)
[2018-04-22 05:25] LABS: ABG ALLEN TEST POS; ARTERIAL BLOOD GAS HCO3 24.1 mmol/L (21-28); ARTERIAL BLOOD GAS HEMOGLOBIN 10.9 g/dL (11.7-17.4); ARTERIAL BLOOD GAS O2 SAT 90.3 % (95-98); ARTERIAL BLOOD GAS PCO2 41 mm/Hg (35-45); ARTERIAL BLOOD GAS PH 7.38 (7.35-7.45); ARTERIAL BLOOD GAS PO2 53 mm/Hg (80-100); ARTERIAL BLOOD GAS TCO2 25.6 mmol/L (22-28)
[2018-04-22 06:26] LABS: BASO # 0.1 K/uL (0.0-0.2); BASO % 0.6 % (0.0-2.0); EOS # 0.1 K/uL (0.0-0.7); EOS % 0.3 % (0.0-4.0); HEMOGLOBIN 11.7 g/dL (12.0-18.0); LYMPH # 1.8 K/uL (1.0-4.3); LYMPH % 8.8 % (20.0-40.0); MEAN CELL VOLUME 90.6 fL (80.0-94.0); MEAN CORPUSCULAR HEMOGLOBIN 29.5 pg (27.0-31.0); MEAN CORPUSCULAR HGB CONC 32.6 g/dL (33.0-37.0); MEAN PLATELET VOLUME 10.4 fL (7.2-11.7); MONO # 0.9 K/uL (0.0-0.8); MONO % 4.5 % (0.0-10.0); NEUT # 17.9 K/uL (1.8-7.0); NEUT % 85.8 % (50.0-75.0); NRBC % 0.1 % (0.0-2.0); PLATELET COUNT 477 K/uL (130-400); RBC 3.95 Mil/uL (4.40-5.90); WHITE BLOOD COUNT 20.9 K/uL (4.8-10.8)
[2018-04-22 08:12] LABS: BANDS 3 % (0-2); LYMPHOCYTE 6 % (20-40); MONOCYTE 7 % (0-10); NEUTROPHIL 84 % (50-75); PLATELET ESTIMATE SLIGHTLY INCREASED (NORMAL); TOTAL CELLS COUNTED 100
[2018-04-22 08:13] LABS: ANISOCYTOSIS SLIGHT; HYPOCHROMIC SLIGHT; POIKILOCYTOSIS SLIGHT
[2018-04-22 08:39] LABS: ALB/GLOB RATIO 0.6 (1.0-2.1); ALBUMIN 2.5 g/dL (3.5-5.0); ALT/SGPT 82 U/L (21-72); AST/SGOT 112 U/L (17-59); BLOOD UREA NITROGEN 16 mg/dL (9-20); CALCIUM 7.8 mg/dl (8.6-10.4); GFR NON-AFRICAN AMERICAN > 60
[2018-04-22] MEDS: Multiple Vitamins Tab PO SCH (10:02)
[2018-04-22] MEDS: Lactobacillus Acidophilus 500 MU Cap PO SCH ×2 (10:02→18:01)
[2018-04-22] MEDS: Enoxaparin 100 mg Syringe SC SCH ×2 (10:02→22:38)
--- NOTE | 2018-04-22 11:13 | CP.CCUPN ---
<Misael Tate - Last Filed: 04/22/18 12:32> CCU Subjective - Physician Review Subjective (Free Text): PGY-[address] Rangel Service Patient is seen and examined at bedside. Patient continues to be intubated and sedated. Family at bedside. Patient continues to be febrile overnight and this morning. No ROS attainable due to patient's current condition Critical Care Time Spent (in minutes): 40 CCU Objective - Vital Signs / Intake & Output Vital Signs (Last 4 hours): Vital Signs Temp Pulse Resp BP Pulse Ox 04/22/18 09:00 89 32 H 96 04/22/18 08:33 91 H 26 H 123/68 97 04/22/18 08:00 100.8 F H 93 H 20 95 04/22/18 07:33 83 30 H 125/72 96 Intake and Output (Last 8hrs): Intake & Output 04/21/18 04/22/18 04/22/18 22:59 06:59 14:59 Intake Total 1779.6 2189.2 217.7 Output Total 750 560 40 Balance 1029.6 1629.2 177.7 Weight 219 lb 0.019 oz Intake: IV 400 550 111.6 Intake, IV Amount 1059.6 1319.2 66.1 Left Hand 550 800 Right Forearm 268.0 268.0 33.5 Right Hand 92.8 102.4 14 Right Upper arm 148.8 148.8 18.6 Tube Feeding 320 320 40 Output: Chest Tube Drainage 50 95 Right Anterior Chest 50 95 Urine 700 465 40 Urethral (Peña) 700 465 40 - Physical Exam Head: Positive for: Atraumatic, Normocephalic Pupils: Positive for: PERRL Extroacular Muscles: Positive for: EOMI Conjunctiva: Positive for: Normal Neck: Positive for: Normal Range of Motion Respiratory/Chest: Positive for: Decreased Breath Sounds (right middle and lower lobes ), Other (intubated and sedated ). Negative for: Respiratory Distress, Accessory Muscle Use Cardiovascular: Positive for: Regular Rate and Rhythm, Normal S1, S2 Abdomen: Positive for: Distention, Normal Bowel Sounds. Negative for: Tenderness Upper Extremity: Positive for: Normal Inspection. Negative for: Cyanosis, Edema Lower Extremity: Positive for: Normal Inspection. Negative for: Edema Neurological: Positive for: Other (unable to assess due to pts condition ) Skin: Positive for: Warm, Dry, Normal Color Psychiatric: Positive for: Other (sedated, not awake or oriented, opens eyes). Negative for: Alert, Oriented x 3 - Medications Active Medications: Active Medications Generic Name Dose Route Start Last Admin Trade Name Freq PRN Reason Stop Dose Admin Albuterol/Ipratropium 3 ml 04/15/18 08:00 04/22/18 07:48 Duoneb 3 Mg/0.5 Mg (3 Ml) Ud INH 3 ml RQ6 JESUS Administration Docusate Sodium 100 mg 04/14/18 18:30 04/22/18 10:02 Colace PO 100 mg TID JESUS Administration Enoxaparin Sodium 100 mg 04/21/18 22:00 04/22/18 10:02 Lovenox SC 100 mg Q12 JESUS Administration Folic Acid 1 mg 04/14/18 10:00 04/22/18 10:02 Folic Acid PO 1 mg DAILY JESUS Administration Propofol 1,000 mg in 100 mls @ 2.79 mls/hr 04/15/18 21:20 04/22/18 08:30 Diprivan IV 60 mcg/kg/min .Q24H PRN 33 mls/hr Agitation Administration Protocol 5 MCG/KG/MIN Meropenem 1 gm/ Sodium 100 mls @ 100 mls/hr 04/16/18 21:00 04/22/18 04:34 Chloride IVPB 100 mls/hr Q8H JESUS Administration Protocol Clindamycin Phosphate 900 mg/ 106 mls @ 100 mls/hr 04/16/18 23:30 04/22/18 07:30 Sodium Chloride IV 100 mls/hr Q8H JESUS Administration Protocol Dexmedetomidine HCl 200 mcg/ 50 mls @ 4.65 mls/hr 04/17/18 15:56 04/22/18 07:10 Sodium Chloride IV 0.6 mcg/kg/hr TITR PRN 14 mls/hr Agitation Titration Protocol 0.2 MCG/KG/HR Fentanyl Citrate 2,500 mcg/ 250 mls @ 19.92 mls/hr 04/19/18 22:00 04/22/18 03:30 Sodium Chloride IV 2 mcg/kg/hr .[id number] JESUS 19.92 mls/hr Administration Protocol 2 MCG/KG/HR Vancomycin HCl 1,500 mg/ 500 mls @ 200 mls/hr 04/22/18 03:00 04/22/18 02:30 Sodium Chloride IVPB 200 mls/hr Q12H JESUS Administration Protocol Gentamicin Sulfate 80 mg/ 102 mls @ 100 mls/hr 04/21/18 16:00 04/22/18 08:27 Sodium Chloride IVPB 100 mls/hr Q8H JESUS Administration Protocol Ibuprofen 400 mg 04/19/18 03:31 04/22/18 01:00 Motrin Tab PO 400 mg Q6H PRN Administration fever Lactobacillus Acidophilus 1 cap 04/14/18 18:45 04/22/18 10:02 Bacid Acidophilus PO 1 cap BID JESUS Administration Multivitamins 1 tab 04/14/18 10:00 04/22/18 10:02 Hexavitamin PO 1 tab DAILY JESUS Administration Pantoprazole Sodium 40 mg 04/14/18 10:00 04/22/18 10:01 Protonix Inj IVP 40 mg DAILY JESUS Administration Sennosides 8.6 mg 04/14/18 00:15 04/22/18 10:02 Senokot Tab PO 8.6 mg BID JESUS Administration Thiamine HCl 100 mg 04/14/18 10:00 04/22/18 10:02 Vitamin B1 Tab PO 100 mg DAILY JESUS Administration - Patient Studies Lab Studies: Microbiology Studies 04/18/18 17:49 Gram Stain - Final Pleural Fluid Body Fluid Culture - Final No growth. 04/19/18 14:23 Gram Stain - Final Bronchial Washings Bronchial Culture - Final NORMAL SAPROPHYTIC JOHN PAUL Fungal Culture - Preliminary 04/18/18 17:49 Anaerobic Culture - Final Pleural Fluid NO ANAEROBES ISOLATED. Fungal Culture - Preliminary Lab Studies 04/22/18 04/22/18 04/22/18 Range/Units 07:52 06:09 05:15 WBC 20.9 H (4.8-10.8) K/uL RBC 3.95 L (4.40-5.90) Mil/uL Hgb 11.7 L (12.0-18.0) g/dL Hct 35.8 (35.0-51.0) % MCV 90.6 (80.0-94.0) fL MCH 29.5 (27.0-31.0) pg MCHC 32.6 L (33.0-37.0) g/dL RDW 15.0 H (11.5-14.5) % Plt Count 477 H (130-400) K/uL MPV 10.4 (7.2-11.7) fL Neut % (Auto) 85.8 H (50.0-75.0) % Lymph % (Auto) 8.8 L (20.0-40.0) % [place] % (Auto) 4.5 (0.0-10.0) % Eos % (Auto) 0.3 (0.0-4.0) % Baso % (Auto) 0.6 (0.0-2.0) % Neut # (Auto) 17.9 H (1.8-7.0) K/uL Lymph # (Auto) 1.8 (1.0-4.3) K/uL [place] # (Auto) 0.9 H (0.0-0.8) K/uL Eos # (Auto) 0.1 (0.0-0.7) K/uL Baso # (Auto) 0.1 (0.0-0.2) K/uL Neutrophils % (Manual) 84 H (50-75) % Band Neutrophils % 3 H (0-2) % Lymphocytes % (Manual) 6 L (20-40) % Monocytes % (Manual) 7 (0-10) % Platelet Estimate Slightly increased H (NORMAL) Hypochromasia (manual) Slight Poikilocytosis (manual Slight Anisocytosis (manual) Slight Puncture Site Rr pCO2 41 (35-45) mm/Hg pO2 53 L (80-100) mm/Hg HCO3 24.1 (21-28) mmol/L ABG pH 7.38 (7.35-7.45) ABG Total CO2 25.6 (22-28) mmol/L ABG O2 Saturation 90.3 L (95-98) % ABG Base Excess -0.8 (-2.0-3.0) mmol/L ABG Hemoglobin 10.9 L (11.7-17.4) g/dL ABG Carboxyhemoglobin 2.0 H (0.5-1.5) % POC ABG HHb (Measured) 9.4 H (0.0-5.0) % ABG Methemoglobin 0.8 (0.0-3.0) % [place] Test Pos A-a O2 Difference 324.0 mm/Hg Respiratory Index 6.1 Hgb O2 Saturation 87.7 L (95.0-98.0) % Vent Mode Prvc Mechanical Rate 18 FiO2 60.0 % Tidal Volume 450 PEEP 8 Sodium 141 (132-148) mmol/L Potassium 4.3 (3.6-5.2) mmol/L Chloride 109 H (98-107) mmol/L Carbon Dioxide 28 (22-30) mmol/L Anion Gap 8 L (10-20) BUN 16 (9-20) mg/dL Creatinine 0.7 L (0.8-1.5) mg/dL Est GFR ( Amer) > 60 Est GFR (Non-Af Amer) > 60 POC Glucose (mg/dL) (65-110) mg/dL Random Glucose 95 (75-110) mg/dL Calcium 7.8 L (8.6-10.4) mg/dl Phosphorus 5.3 H (2.5-4.5) mg/dL Magnesium 2.1 (1.6-2.3) mg/dL Total Bilirubin 1.0 (0.2-1.3) mg/dL AST 112 H (17-59) U/L ALT 82 H D (21-72) U/L Alkaline Phosphatase 352 H (38-126) U/L Total Protein 7.0 (6.3-8.3) g/dL Albumin 2.5 L (3.5-5.0) g/dL Globulin 4.5 H (2.2-3.9) gm/dL Albumin/Globulin Ratio 0.6 L (1.0-2.1) Procalcitonin (0.19-0.49) NG/ML Urine Color (YELLOW) Urine Clarity (Clear) Urine pH (5.0-8.0) Ur Specific [place] (1.003-1.030) Urine Protein (NEGATIVE) mg/dL Urine Glucose (UA) (Normal) mg/dL Urine Ketones (NEGATIVE) mg/dL Urine Blood (NEGATIVE) Urine Nitrate (NEGATIVE) Urine Bilirubin (NEGATIVE) Urine Urobilinogen (0.2-1.0) mg/dL Ur Leukocyte Esterase (Negative) Martine/uL Urine WBC (Auto) (0-5) /hpf Urine RBC (Auto) (0-3) /hpf Ur Squamous Epith Cells (0-5) /hpf Urine Bacteria (<OCC) Pleural Total Protein g/dL Pleural LDH Pleural Glucose mg/dL Vancomycin Trough (5.0-10.0) ug/mL 04/21/18 04/21/18 04/21/18 Range/Units 23:50 17:28 17:04 WBC (4.8-10.8) K/uL RBC (4.40-5.90) Mil/uL Hgb (12.0-18.0) g/dL Hct (35.0-51.0) % MCV (80.0-94.0) fL MCH (27.0-31.0) pg MCHC (33.0-37.0) g/dL RDW (11.5-14.5) % Plt Count (130-400) K/uL MPV (7.2-11.7) fL Neut % (Auto) (50.0-75.0) % Lymph % (Auto) (20.0-40.0) % [place] % (Auto) (0.0-10.0) % Eos % (Auto) (0.0-4.0) % Baso % (Auto) (0.0-2.0) % Neut # (Auto) (1.8-7.0) K/uL Lymph # (Auto) (1.0-4.3) K/uL [place] # (Auto) (0.0-0.8) K/uL Eos # (Auto) (0.0-0.7) K/uL Baso # (Auto) (0.0-0.2) K/uL Neutrophils % (Manual) (50-75) % Band Neutrophils % (0-2) % Lymphocytes % (Manual) (20-40) % Monocytes % (Manual) (0-10) % Platelet Estimate (NORMAL) Hypochromasia (manual) Poikilocytosis (manual Anisocytosis (manual) Puncture Site pCO2 (35-45) mm/Hg pO2 (80-100) mm/Hg HCO3 (21-28) mmol/L ABG pH (7.35-7.45) ABG Total CO2 (22-28) mmol/L ABG O2 Saturation (95-98) % ABG Base Excess (-2.0-3.0) mmol/L ABG Hemoglobin (11.7-17.4) g/dL ABG Carboxyhemoglobin (0.5-1.5) % POC ABG HHb (Measured) (0.0-5.0) % ABG Methemoglobin (0.0-3.0) % [place] Test A-a O2 Difference mm/Hg Respiratory Index Hgb O2 Saturation (95.0-98.0) % Vent Mode Mechanical Rate FiO2 % Tidal Volume PEEP Sodium (132-148) mmol/L Potassium (3.6-5.2) mmol/L Chloride (98-107) mmol/L Carbon Dioxide (22-30) mmol/L Anion Gap (10-20) BUN (9-20) mg/dL Creatinine (0.8-1.5) mg/dL Est GFR ( Amer) Est GFR (Non-Af Amer) POC Glucose (mg/dL) 126 H 105 (65-110) mg/dL Random Glucose (75-110) mg/dL Calcium (8.6-10.4) mg/dl Phosphorus (2.5-4.5) mg/dL Magnesium (1.6-2.3) mg/dL Total Bilirubin (0.2-1.3) mg/dL AST (17-59) U/L ALT (21-72) U/L Alkaline Phosphatase (38-126) U/L Total Protein (6.3-8.3) g/dL Albumin (3.5-5.0) g/dL Globulin (2.2-3.9) gm/dL Albumin/Globulin Ratio (1.0-2.1) Procalcitonin (0.19-0.49) NG/ML Urine Color [place] (YELLOW) Urine Clarity Hazy (Clear) Urine pH 5.0 (5.0-8.0) Ur Specific [place] 1.030 (1.003-1.030) Urine Protein 2+ H (NEGATIVE) mg/dL Urine Glucose (UA) Normal (Normal) mg/dL Urine Ketones Negative (NEGATIVE) mg/dL Urine Blood Trace H (NEGATIVE) Urine Nitrate Negative (NEGATIVE) Urine Bilirubin Negative (NEGATIVE) Urine Urobilinogen Normal (0.2-1.0) mg/dL Ur Leukocyte Esterase Neg (Negative) Martine/uL Urine WBC (Auto) 3 (0-5) /hpf Urine RBC (Auto) 16 H (0-3) /hpf Ur Squamous Epith Cells < 1 (0-5) /hpf Urine Bacteria Occ H (<OCC) Pleural Total Protein g/dL Pleural LDH Pleural Glucose mg/dL Vancomycin Trough (5.0-10.0) ug/mL 04/21/18 04/21/18 04/21/18 Range/Units 11:39 11:20 05:51 WBC (4.8-10.8) K/uL RBC (4.40-5.90) Mil/uL Hgb (12.0-18.0) g/dL Hct (35.0-51.0) % MCV (80.0-94.0) fL MCH (27.0-31.0) pg MCHC (33.0-37.0) g/dL RDW (11.5-14.5) % Plt Count (130-400) K/uL MPV (7.2-11.7) fL Neut % (Auto) (50.0-75.0) % Lymph % (Auto) (20.0-40.0) % [place] % (Auto) (0.0-10.0) % Eos % (Auto) (0.0-4.0) % Baso % (Auto) (0.0-2.0) % Neut # (Auto) (1.8-7.0) K/uL Lymph # (Auto) (1.0-4.3) K/uL [place] # (Auto) (0.0-0.8) K/uL Eos # (Auto) (0.0-0.7) K/uL Baso # (Auto) (0.0-0.2) K/uL Neutrophils % (Manual) (50-75) % Band Neutrophils % (0-2) % Lymphocytes % (Manual) (20-40) % Monocytes % (Manual) (0-10) % Platelet Estimate (NORMAL) Hypochromasia (manual) Poikilocytosis (manual Anisocytosis (manual) Puncture Site pCO2 (35-45) mm/Hg pO2 (80-100) mm/Hg HCO3 (21-28) mmol/L ABG pH (7.35-7.45) ABG Total CO2 (22-28) mmol/L ABG O2 Saturation (95-98) % ABG Base Excess (-2.0-3.0) mmol/L ABG Hemoglobin (11.7-17.4) g/dL ABG Carboxyhemoglobin (0.5-1.5) % POC ABG HHb (Measured) (0.0-5.0) % ABG Methemoglobin (0.0-3.0) % [place] Test A-a O2 Difference mm/Hg Respiratory Index Hgb O2 Saturation (95.0-98.0) % Vent Mode Mechanical Rate FiO2 % Tidal Volume PEEP Sodium (132-148) mmol/L Potassium (3.6-5.2) mmol/L Chloride (98-107) mmol/L Carbon Dioxide (22-30) mmol/L Anion Gap (10-20) BUN (9-20) mg/dL Creatinine (0.8-1.5) mg/dL Est GFR ( Amer) Est GFR (Non-Af Amer) POC Glucose (mg/dL) 127 H (65-110) mg/dL Random Glucose (75-110) mg/dL Calcium (8.6-10.4) mg/dl Phosphorus (2.5-4.5) mg/dL Magnesium (1.6-2.3) mg/dL Total Bilirubin (0.2-1.3) mg/dL AST (17-59) U/L ALT (21-72) U/L Alkaline Phosphatase (38-126) U/L Total Protein (6.3-8.3) g/dL Albumin (3.5-5.0) g/dL Globulin (2.2-3.9) gm/dL Albumin/Globulin Ratio (1.0-2.1) Procalcitonin 1.64 H (0.19-0.49) NG/ML Urine Color (YELLOW) Urine Clarity (Clear) Urine pH (5.0-8.0) Ur Specific [place] (1.003-1.030) Urine Protein (NEGATIVE) mg/dL Urine Glucose (UA) (Normal) mg/dL Urine Ketones (NEGATIVE) mg/dL Urine Blood (NEGATIVE) Urine Nitrate (NEGATIVE) Urine Bilirubin (NEGATIVE) Urine Urobilinogen (0.2-1.0) mg/dL Ur Leukocyte Esterase (Negative) Martine/uL Urine WBC (Auto) (0-5) /hpf Urine RBC (Auto) (0-3) /hpf Ur Squamous Epith Cells (0-5) /hpf Urine Bacteria (<OCC) Pleural Total Protein g/dL Pleural LDH Pleural Glucose mg/dL Vancomycin Trough 9.0 (5.0-10.0) ug/mL 04/18/18 Range/Units 17:49 WBC (4.8-10.8) K/uL RBC (4.40-5.90) Mil/uL Hgb (12.0-18.0) g/dL Hct (35.0-51.0) % MCV (80.0-94.0) fL MCH (27.0-31.0) pg MCHC (33.0-37.0) g/dL RDW (11.5-14.5) % Plt Count (130-400) K/uL MPV (7.2-11.7) fL Neut % (Auto) (50.0-75.0) % Lymph % (Auto) (20.0-40.0) % [place] % (Auto) (0.0-10.0) % Eos % (Auto) (0.0-4.0) % Baso % (Auto) (0.0-2.0) % Neut # (Auto) (1.8-7.0) K/uL Lymph # (Auto) (1.0-4.3) K/uL [place] # (Auto) (0.0-0.8) K/uL Eos # (Auto) (0.0-0.7) K/uL Baso # (Auto) (0.0-0.2) K/uL Neutrophils % (Manual) (50-75) % Band Neutrophils % (0-2) % Lymphocytes % (Manual) (20-40) % Monocytes % (Manual) (0-10) % Platelet Estimate (NORMAL) Hypochromasia (manual) Poikilocytosis (manual Anisocytosis (manual) Puncture Site pCO2 (35-45) mm/Hg pO2 (80-100) mm/Hg HCO3 (21-28) mmol/L ABG pH (7.35-7.45) ABG Total CO2 (22-28) mmol/L ABG O2 Saturation (95-98) % ABG Base Excess (-2.0-3.0) mmol/L ABG Hemoglobin (11.7-17.4) g/dL ABG Carboxyhemoglobin (0.5-1.5) % POC ABG HHb (Measured) (0.0-5.0) % ABG Methemoglobin (0.0-3.0) % [place] Test A-a O2 Difference mm/Hg Respiratory Index Hgb O2 Saturation (95.0-98.0) % Vent Mode Mechanical Rate FiO2 % Tidal Volume PEEP Sodium (132-148) mmol/L Potassium (3.6-5.2) mmol/L Chloride (98-107) mmol/L Carbon Dioxide (22-30) mmol/L Anion Gap (10-20) BUN (9-20) mg/dL Creatinine (0.8-1.5) mg/dL Est GFR ( Amer) Est GFR (Non-Af Amer) POC Glucose (mg/dL) (65-110) mg/dL Random Glucose (75-110) mg/dL Calcium (8.6-10.4) mg/dl Phosphorus (2.5-4.5) mg/dL Magnesium (1.6-2.3) mg/dL Total Bilirubin (0.2-1.3) mg/dL AST (17-59) U/L ALT (21-72) U/L Alkaline Phosphatase (38-126) U/L Total Protein (6.3-8.3) g/dL Albumin (3.5-5.0) g/dL Globulin (2.2-3.9) gm/dL Albumin/Globulin Ratio (1.0-2.1) Procalcitonin (0.19-0.49) NG/ML Urine Color (YELLOW) Urine Clarity (Clear) Urine pH (5.0-8.0) Ur Specific [place] (1.003-1.030) Urine Protein (NEGATIVE) mg/dL Urine Glucose (UA) (Normal) mg/dL Urine Ketones (NEGATIVE) mg/dL Urine Blood (NEGATIVE) Urine Nitrate (NEGATIVE) Urine Bilirubin (NEGATIVE) Urine Urobilinogen (0.2-1.0) mg/dL Ur Leukocyte Esterase (Negative) Martine/uL Urine WBC (Auto) (0-5) /hpf Urine RBC (Auto) (0-3) /hpf Ur Squamous Epith Cells (0-5) /hpf Urine Bacteria (<OCC) Pleural Total Protein 4.1 g/dL Pleural LDH see note Pleural Glucose <10 L mg/dL Vancomycin Trough (5.0-10.0) ug/mL Laboratory Results - last 24 hr 04/18/18 04/21/18 04/21/18 17:49 05:51 11:20 WBC RBC Hgb Hct MCV MCH MCHC RDW Plt Count MPV Neut % (Auto) Lymph % (Auto) [place] % (Auto) Eos % (Auto) Baso % (Auto) Neut # (Auto) Lymph # (Auto) [place] # (Auto) Eos # (Auto) Baso # (Auto) Neutrophils % (Manual) Band Neutrophils % Lymphocytes % (Manual) Monocytes % (Manual) Platelet Estimate Hypochromasia (manual) Poikilocytosis (manual Anisocytosis (manual) Puncture Site pCO2 pO2 HCO3 ABG pH ABG Total CO2 ABG O2 Saturation ABG Base Excess ABG Hemoglobin ABG Carboxyhemoglobin POC ABG HHb (Measured) ABG Methemoglobin [place] Test A-a O2 Difference Respiratory Index Hgb O2 Saturation Vent Mode Mechanical Rate FiO2 Tidal Volume PEEP Sodium Potassium Chloride Carbon Dioxide Anion Gap BUN Creatinine Est GFR ( Amer) Est GFR (Non-Af Amer) POC Glucose (mg/dL) 127 H Random Glucose Calcium Phosphorus Magnesium Total Bilirubin AST ALT Alkaline Phosphatase Total Protein Albumin Globulin Albumin/Globulin Ratio Procalcitonin 1.64 H Urine Color Urine Clarity Urine pH Ur Specific [place] Urine Protein Urine Glucose (UA) Urine Ketones Urine Blood Urine Nitrate Urine Bilirubin Urine Urobilinogen Ur Leukocyte Esterase Urine WBC (Auto) Urine RBC (Auto) Ur Squamous Epith Cells Urine Bacteria Pleural Total Protein 4.1 Pleural LDH see note Pleural Glucose <10 L Vancomycin Trough 04/21/18 04/21/18 04/21/18 11:39 17:04 17:28 WBC RBC Hgb Hct MCV MCH MCHC RDW Plt Count MPV Neut % (Auto) Lymph % (Auto) [place] % (Auto) Eos % (Auto) Baso % (Auto) Neut # (Auto) Lymph # (Auto) [place] # (Auto) Eos # (Auto) Baso # (Auto) Neutrophils % (Manual) Band Neutrophils % Lymphocytes % (Manual) Monocytes % (Manual) Platelet Estimate Hypochromasia (manual) Poikilocytosis (manual Anisocytosis (manual) Puncture Site pCO2 pO2 HCO3 ABG pH ABG Total CO2 ABG O2 Saturation ABG Base Excess ABG Hemoglobin ABG Carboxyhemoglobin POC ABG HHb (Measured) ABG Methemoglobin [place] Test A-a O2 Difference Respiratory Index Hgb O2 Saturation Vent Mode Mechanical Rate FiO2 Tidal Volume PEEP Sodium Potassium Chloride Carbon Dioxide Anion Gap BUN Creatinine Est GFR ( Amer) Est GFR (Non-Af Amer) POC Glucose (mg/dL) 105 Random Glucose Calcium Phosphorus Magnesium Total Bilirubin AST ALT Alkaline Phosphatase Total Protein Albumin Globulin Albumin/Globulin Ratio Procalcitonin Urine Color [place] Urine Clarity Hazy Urine pH 5.0 Ur Specific [place] 1.030 Urine Protein 2+ H Urine Glucose (UA) Normal Urine Ketones Negative Urine Blood Trace H Urine Nitrate Negative Urine Bilirubin Negative Urine Urobilinogen Normal Ur Leukocyte Esterase Neg Urine WBC (Auto) 3 Urine RBC (Auto) 16 H Ur Squamous Epith Cells < 1 Urine Bacteria Occ H Pleural Total Protein Pleural LDH Pleural Glucose Vancomycin Trough 9.0 04/21/18 04/22/18 04/22/18 23:50 05:15 06:09 WBC 20.9 H RBC 3.95 L Hgb 11.7 L Hct 35.8 MCV 90.6 MCH 29.5 MCHC 32.6 L RDW 15.0 H Plt Count 477 H MPV 10.4 Neut % (Auto) 85.8 H Lymph % (Auto) 8.8 L [place] % (Auto) 4.5 Eos % (Auto) 0.3 Baso % (Auto) 0.6 Neut # (Auto) 17.9 H Lymph # (Auto) 1.8 [place] # (Auto) 0.9 H Eos # (Auto) 0.1 Baso # (Auto) 0.1 Neutrophils % (Manual) 84 H Band Neutrophils % 3 H Lymphocytes % (Manual) 6 L Monocytes % (Manual) 7 Platelet Estimate Slightly increased H Hypochromasia (manual) Slight Poikilocytosis (manual Slight Anisocytosis (manual) Slight Puncture Site Rr pCO2 41 pO2 53 L HCO3 24.1 ABG pH 7.38 ABG Total CO2 25.6 ABG O2 Saturation 90.3 L ABG Base Excess -0.8 ABG Hemoglobin 10.9 L ABG Carboxyhemoglobin 2.0 H POC ABG HHb (Measured) 9.4 H ABG Methemoglobin 0.8 [place] Test Pos A-a O2 Difference 324.0 Respiratory Index 6.1 Hgb O2 Saturation 87.7 L Vent Mode Prvc Mechanical Rate 18 FiO2 60.0 Tidal Volume 450 PEEP 8 Sodium Potassium Chloride Carbon Dioxide Anion Gap BUN Creatinine Est GFR ( Amer) Est GFR (Non-Af Amer) POC Glucose (mg/dL) 126 H Random Glucose Calcium Phosphorus Magnesium Total Bilirubin AST ALT Alkaline Phosphatase Total Protein Albumin Globulin Albumin/Globulin Ratio Procalcitonin Urine Color Urine Clarity Urine pH Ur Specific [place] Urine Protein Urine Glucose (UA) Urine Ketones Urine Blood Urine Nitrate Urine Bilirubin Urine Urobilinogen Ur Leukocyte Esterase Urine WBC (Auto) Urine RBC (Auto) Ur Squamous Epith Cells Urine Bacteria Pleural Total Protein Pleural LDH Pleural Glucose Vancomycin Trough 04/22/18 07:52 WBC RBC Hgb Hct MCV MCH MCHC RDW Plt Count MPV Neut % (Auto) Lymph % (Auto) [place] % (Auto) Eos % (Auto) Baso % (Auto) Neut # (Auto) Lymph # (Auto) [place] # (Auto) Eos # (Auto) Baso # (Auto) Neutrophils % (Manual) Band Neutrophils % Lymphocytes % (Manual) Monocytes % (Manual) Platelet Estimate Hypochromasia (manual) Poikilocytosis (manual Anisocytosis (manual) Puncture Site pCO2 pO2 HCO3 ABG pH ABG Total CO2 ABG O2 Saturation ABG Base Excess ABG Hemoglobin ABG Carboxyhemoglobin POC ABG HHb (Measured) ABG Methemoglobin [place] Test A-a O2 Difference Respiratory Index Hgb O2 Saturation Vent Mode Mechanical Rate FiO2 Tidal Volume PEEP Sodium 141 Potassium 4.3 Chloride 109 H Carbon Dioxide 28 Anion Gap 8 L BUN 16 Creatinine 0.7 L Est GFR ( Amer) > 60 Est GFR (Non-Af Amer) > 60 POC Glucose (mg/dL) Random Glucose 95 Calcium 7.8 L Phosphorus 5.3 H Magnesium 2.1 Total Bilirubin 1.0 AST 112 H ALT 82 H D Alkaline Phosphatase 352 H Total Protein 7.0 Albumin 2.5 L Globulin 4.5 H Albumin/Globulin Ratio 0.6 L Procalcitonin Urine Color Urine Clarity Urine pH Ur Specific [place] Urine Protein Urine Glucose (UA) Urine Ketones Urine Blood Urine Nitrate Urine Bilirubin Urine Urobilinogen Ur Leukocyte Esterase Urine WBC (Auto) Urine RBC (Auto) Ur Squamous Epith Cells Urine Bacteria Pleural Total Protein Pleural LDH Pleural Glucose Vancomycin Trough Radiology Impressions: Radiology Impressions Chest X-Ray 04/21/18 07:29 IMPRESSION: No significant interval change compared to the prior examination(s). Critical Care Progress Note - Ventilator Checklist Head of Bed 30 Degrees: Yes PUD Prophalyxis: Yes DVT Prophylaxis: Yes Oral Care with Chlorhexidine Gluconate {CHG}: Yes - Vent Settings MODE:: PRVC TIDAL VOLUME:: 400 RESP RATE:: 14 FIO2:: 60 PEEP:: 8 - Nutrition Nutrition: Nutrition Category Date Time Status NPO Diet [DIET] Diets 04/16/18 Breakfast Active Assessment/Plan - Assessment and Plan (Free Text) Plan: 43 year old male with no pmhx presenting to ED with RLQ abdominal pain, fever and chills on 04/14, constipated x 3 days, code sepsis, elevated WBC, bandemia, elevated lactate, CT shows Rt lung consolidation, most likely due to aspiration PNA vs CA PNA. thoracentesis 02/13, likely superimposed consolidation in right upper lobe as well as possible right lower lobe as per 04/15 chest xray. 02/13 intubated for worsening respiratory failure, hypoxia and DT, sedated with propofol and fentanyl drip, chest tube placed on 04/18 and EET replaced for thick purulent material observed, bronchial washing on 04/19. positive for DVT on b/l cephalic veins, will need femoral central line, awaiting surgical recs for VATS, decortication procedure. Neuro alcohol withdrawal syndrome with DT on 04/15 intubated - d/c precedex, continue sedation with propofol and Fentanyl still febrile, Tmax 102.7 - on cooling measurements, motrin given last night Pulm hypoxic respiratory failure secondary to Community acquired PNA vs aspiration PNA with empyema. continue to be intubated, PRVC 14/400/ CTA - no evidence of PE Doppler - abnormal findings b/l cephalic veins CT Chest - decreased right pleural effusion, extensive right lower lobe atelectasis with right middle lobe and left lower lobe subsegmental atelectasis. Small left pleural effusion. No pneumothroax. Chest xray 04/22 - Large loculated right and small left pleural effusion, confluent consolidative changes seen within the right mid to lower lung zone, and left lung base. Cardio thoracic sx consult - Dr Meza - possible VATS continue Duonebs chest tube drainage 145 Cardio HR 90s, BP wnl continue to monitor CTA - no evidence of PE Doppler - abnormal findings b/l cephalic veins Lovenox 100mg BID for DVT Patient is going to need femoral line for access as patient has cephalic vein DVT GI Tube feedings Jevity initial rate @ 20, increase 20, goal at 45 NPO last BM on cont colace, senokot Renal monitor urine output Potassium low today - repleted replete electrolytes as needed renal function wnl - continue to monitor ID today WBC 20, increased from 15, patient is afebrile band 3 continue clinda, genta meropenem and vanco Vanco through ordered - 9.0 Pleural fluid - no growth normal saprophytic john paul from bronchial washings Dr Spring - ID follow up recs HIV, Hep, atypicals - negative PPX DVT: lovenox GI: protonix Multivit, thiamine, Folic acid Ibuprofen 400mg PO Q6H PRN Plan discussed with Dr Juan Carlos Tate, PGY-1 - Date & Time Date: 04/22/18 Time: 08:00 <Ulises Rangel - Last Filed: 04/22/18 17:51> CCU Objective - Vital Signs / Intake & Output Vital Signs (Last 4 hours): Vital Signs Temp Pulse Resp BP Pulse Ox 04/22/18 16:00 100.4 F H 103 H 19 99 04/22/18 15:33 115 H 21 115/79 92 L 04/22/18 15:00 124 H 20 91 L 04/22/18 14:33 127/73 04/22/18 14:00 91 H 22 99 Intake and Output (Last 8hrs): Intake & Output 04/22/18 04/22/18 04/22/18 06:59 14:59 22:59 Intake Total 2189.2 1796.3 494.2 Output Total 560 490 Balance 1629.2 1306.3 494.2 Weight 219 lb 0.019 oz Intake: IV 550 350.0 33 Intake, IV Amount 1319.2 996.3 461.2 Left Hand 800 550 350 Right Forearm 268.0 255.5 60 Right Hand 102.4 42 14 Right Upper arm 148.8 148.8 37.2 Tube Feeding 320 250 Other 200 Output: Chest Tube Drainage 95 Right Anterior Chest 95 Urine 465 490 Urethral (Pe[place]) 465 490 - Medications Active Medications: Active Medications Generic Name Dose Route Start Last Admin Trade Name Freq PRN Reason Stop Dose Admin Albuterol/Ipratropium 3 ml 04/15/18 08:00 04/22/18 13:21 Duoneb 3 Mg/0.5 Mg (3 Ml) Ud INH 3 ml RQ6 JESUS Administration Docusate Sodium 100 mg 04/14/18 18:30 04/22/18 13:11 Colace PO 100 mg TID JESUS Administration Enoxaparin Sodium 100 mg 04/21/18 22:00 04/22/18 10:02 Lovenox SC 100 mg Q12 JESUS Administration Folic Acid 1 mg 04/14/18 10:00 04/22/18 10:02 Folic Acid PO 1 mg DAILY JESUS Administration Propofol 1,000 mg in 100 mls @ 2.79 mls/hr 04/15/18 21:20 04/22/18 15:00 Diprivan IV 70 mcg/kg/min .Q24H PRN 39 mls/hr Agitation Titration Protocol 5 MCG/KG/MIN Meropenem 1 gm/ Sodium 100 mls @ 100 mls/hr 04/16/18 21:00 04/22/18 13:10 Chloride IVPB 100 mls/hr Q8H JESUS Administration Protocol Clindamycin Phosphate 900 mg/ 106 mls @ 100 mls/hr 04/16/18 23:30 04/22/18 15:51 Sodium Chloride IV 100 mls/hr Q8H JESUS Administration Protocol Fentanyl Citrate 2,500 mcg/ 250 mls @ 19.92 mls/hr 04/19/18 22:00 04/22/18 03:30 Sodium Chloride IV 2 mcg/kg/hr .[id number] JESUS 19.92 mls/hr Administration Protocol 2 MCG/KG/HR Vancomycin HCl 1,500 mg/ 500 mls @ 200 mls/hr 04/22/18 03:00 04/22/18 14:26 Sodium Chloride IVPB 200 mls/hr Q12H JESUS Administration Protocol Gentamicin Sulfate 80 mg/ 102 mls @ 100 mls/hr 04/21/18 16:00 04/22/18 08:27 Sodium Chloride IVPB 100 mls/hr Q8H JESUS Administration Protocol Dexmedetomidine HCl 200 mcg/ 50 mls @ 14.9 mls/hr 04/22/18 15:16 04/22/18 15:35 Sodium Chloride IV 0.56 mcg/kg/hr TITR PRN 14 mls/hr Agitation Administration Protocol 0.6 MCG/KG/HR Ibuprofen 400 mg 04/19/18 03:31 04/22/18 01:00 Motrin Tab PO 400 mg Q6H PRN Administration fever Lactobacillus Acidophilus 1 cap 04/14/18 18:45 04/22/18 10:02 Bacid Acidophilus PO 1 cap BID JESUS Administration Multivitamins 1 tab 04/14/18 10:00 04/22/18 10:02 Hexavitamin PO 1 tab DAILY JESUS Administration Pantoprazole Sodium 40 mg 04/14/18 10:00 04/22/18 10:01 Protonix Inj IVP 40 mg DAILY JESUS Administration Sennosides 8.6 mg 04/14/18 00:15 04/22/18 10:02 Senokot Tab PO 8.6 mg BID JESUS Administration Thiamine HCl 100 mg 04/14/18 10:00 04/22/18 10:02 Vitamin B1 Tab PO 100 mg DAILY JESUS Administration - Patient Studies Lab Studies: Microbiology Studies 04/21/18 17:04 Blood Culture - Preliminary Blood NO GROWTH AFTER 24 HOURS 04/21/18 15:00 Blood Culture - Preliminary Blood NO GROWTH AFTER 24 HOURS 04/21/18 17:04 Urine Culture - Final Urine,[place] No Growth (<1,000 CFU/ML) 04/18/18 17:49 Gram Stain - Final Pleural Fluid Body Fluid Culture - Final No growth. Lab Studies 04/22/18 04/22/18 04/22/18 Range/Units 07:52 06:09 05:15 WBC 20.9 H (4.8-10.8) K/uL RBC 3.95 L (4.40-5.90) Mil/uL Hgb 11.7 L (12.0-18.0) g/dL Hct 35.8 (35.0-51.0) % MCV 90.6 (80.0-94.0) fL MCH 29.5 (27.0-31.0) pg MCHC 32.6 L (33.0-37.0) g/dL RDW 15.0 H (11.5-14.5) % Plt Count 477 H (130-400) K/uL MPV 10.4 (7.2-11.7) fL Neut % (Auto) 85.8 H (50.0-75.0) % Lymph % (Auto) 8.8 L (20.0-40.0) % [place] % (Auto) 4.5 (0.0-10.0) % Eos % (Auto) 0.3 (0.0-4.0) % Baso % (Auto) 0.6 (0.0-2.0) % Neut # (Auto) 17.9 H (1.8-7.0) K/uL Lymph # (Auto) 1.8 (1.0-4.3) K/uL [place] # (Auto) 0.9 H (0.0-0.8) K/uL Eos # (Auto) 0.1 (0.0-0.7) K/uL Baso # (Auto) 0.1 (0.0-0.2) K/uL Neutrophils % (Manual) 84 H (50-75) % Band Neutrophils % 3 H (0-2) % Lymphocytes % (Manual) 6 L (20-40) % Monocytes % (Manual) 7 (0-10) % Platelet Estimate Slightly increased H (NORMAL) Hypochromasia (manual) Slight Poikilocytosis (manual Slight Anisocytosis (manual) Slight Puncture Site Rr pCO2 41 (35-45) mm/Hg pO2 53 L (80-100) mm/Hg HCO3 24.1 (21-28) mmol/L ABG pH 7.38 (7.35-7.45) ABG Total CO2 25.6 (22-28) mmol/L ABG O2 Saturation 90.3 L (95-98) % ABG Base Excess -0.8 (-2.0-3.0) mmol/L ABG Hemoglobin 10.9 L (11.7-17.4) g/dL ABG Carboxyhemoglobin 2.0 H (0.5-1.5) % POC ABG HHb (Measured) 9.4 H (0.0-5.0) % ABG Methemoglobin 0.8 (0.0-3.0) % [place] Test Pos A-a O2 Difference 324.0 mm/Hg Respiratory Index 6.1 Hgb O2 Saturation 87.7 L (95.0-98.0) % Vent Mode Prvc Mechanical Rate 18 FiO2 60.0 % Tidal Volume 450 PEEP 8 Sodium 141 (132-148) mmol/L Potassium 4.3 (3.6-5.2) mmol/L Chloride 109 H (98-107) mmol/L Carbon Dioxide 28 (22-30) mmol/L Anion Gap 8 L (10-20) BUN 16 (9-20) mg/dL Creatinine 0.7 L (0.8-1.5) mg/dL Est GFR ( Amer) > 60 Est GFR (Non-Af Amer) > 60 POC Glucose (mg/dL) (65-110) mg/dL Random Glucose 95 (75-110) mg/dL Calcium 7.8 L (8.6-10.4) mg/dl Phosphorus 5.3 H (2.5-4.5) mg/dL Magnesium 2.1 (1.6-2.3) mg/dL Total Bilirubin 1.0 (0.2-1.3) mg/dL AST 112 H (17-59) U/L ALT 82 H D (21-72) U/L Alkaline Phosphatase 352 H (38-126) U/L Total Protein 7.0 (6.3-8.3) g/dL Albumin 2.5 L (3.5-5.0) g/dL Globulin 4.5 H (2.2-3.9) gm/dL Albumin/Globulin Ratio 0.6 L (1.0-2.1) Pleural Total Protein g/dL Pleural LDH Pleural Glucose mg/dL 04/21/18 04/18/18 Range/Units 23:50 17:49 WBC (4.8-10.8) K/uL RBC (4.40-5.90) Mil/uL Hgb (12.0-18.0) g/dL Hct (35.0-51.0) % MCV (80.0-94.0) fL MCH (27.0-31.0) pg MCHC (33.0-37.0) g/dL RDW (11.5-14.5) % Plt Count (130-400) K/uL MPV (7.2-11.7) fL Neut % (Auto) (50.0-75.0) % Lymph % (Auto) (20.0-40.0) % [place] % (Auto) (0.0-10.0) % Eos % (Auto) (0.0-4.0) % Baso % (Auto) (0.0-2.0) % Neut # (Auto) (1.8-7.0) K/uL Lymph # (Auto) (1.0-4.3) K/uL [place] # (Auto) (0.0-0.8) K/uL Eos # (Auto) (0.0-0.7) K/uL Baso # (Auto) (0.0-0.2) K/uL Neutrophils % (Manual) (50-75) % Band Neutrophils % (0-2) % Lymphocytes % (Manual) (20-40) % Monocytes % (Manual) (0-10) % Platelet Estimate (NORMAL) Hypochromasia (manual) Poikilocytosis (manual Anisocytosis (manual) Puncture Site pCO2 (35-45) mm/Hg pO2 (80-100) mm/Hg HCO3 (21-28) mmol/L ABG pH (7.35-7.45) ABG Total CO2 (22-28) mmol/L ABG O2 Saturation (95-98) % ABG Base Excess (-2.0-3.0) mmol/L ABG Hemoglobin (11.7-17.4) g/dL ABG Carboxyhemoglobin (0.5-1.5) % POC ABG HHb (Measured) (0.0-5.0) % ABG Methemoglobin (0.0-3.0) % [place] Test A-a O2 Difference mm/Hg Respiratory Index Hgb O2 Saturation (95.0-98.0) % Vent Mode Mechanical Rate FiO2 % Tidal Volume PEEP Sodium (132-148) mmol/L Potassium (3.6-5.2) mmol/L Chloride (98-107) mmol/L Carbon Dioxide (22-30) mmol/L Anion Gap (10-20) BUN (9-20) mg/dL Creatinine (0.8-1.5) mg/dL Est GFR ( Amer) Est GFR (Non-Af Amer) POC Glucose (mg/dL) 126 H (65-110) mg/dL Random Glucose (75-110) mg/dL Calcium (8.6-10.4) mg/dl Phosphorus (2.5-4.5) mg/dL Magnesium (1.6-2.3) mg/dL Total Bilirubin (0.2-1.3) mg/dL AST (17-59) U/L ALT (21-72) U/L Alkaline Phosphatase (38-126) U/L Total Protein (6.3-8.3) g/dL Albumin (3.5-5.0) g/dL Globulin (2.2-3.9) gm/dL Albumin/Globulin Ratio (1.0-2.1) Pleural Total Protein 4.1 g/dL Pleural LDH see note Pleural Glucose <10 L mg/dL Laboratory Results - last 24 hr 04/18/18 04/21/18 04/22/18 17:49 23:50 05:15 WBC RBC Hgb Hct MCV MCH MCHC RDW Plt Count MPV Neut % (Auto) Lymph % (Auto) [place] % (Auto) Eos % (Auto) Baso % (Auto) Neut # (Auto) Lymph # (Auto) [place] # (Auto) Eos # (Auto) Baso # (Auto) Neutrophils % (Manual) Band Neutrophils % Lymphocytes % (Manual) Monocytes % (Manual) Platelet Estimate Hypochromasia (manual) Poikilocytosis (manual Anisocytosis (manual) Puncture Site Rr pCO2 41 pO2 53 L HCO3 24.1 ABG pH 7.38 ABG Total CO2 25.6 ABG O2 Saturation 90.3 L ABG Base Excess -0.8 ABG Hemoglobin 10.9 L ABG Carboxyhemoglobin 2.0 H POC ABG HHb (Measured) 9.4 H ABG Methemoglobin 0.8 [place] Test Pos A-a O2 Difference 324.0 Respiratory Index 6.1 Hgb O2 Saturation 87.7 L Vent Mode Prvc Mechanical Rate 18 FiO2 60.0 Tidal Volume 450 PEEP 8 Sodium Potassium Chloride Carbon Dioxide Anion Gap BUN Creatinine Est GFR ( Amer) Est GFR (Non-Af Amer) POC Glucose (mg/dL) 126 H Random Glucose Calcium Phosphorus Magnesium Total Bilirubin AST ALT Alkaline Phosphatase Total Protein Albumin Globulin Albumin/Globulin Ratio Pleural Total Protein 4.1 Pleural LDH see note Pleural Glucose <10 L 04/22/18 04/22/18 06:09 07:52 WBC 20.9 H RBC 3.95 L Hgb 11.7 L Hct 35.8 MCV 90.6 MCH 29.5 MCHC 32.6 L RDW 15.0 H Plt Count 477 H MPV 10.4 Neut % (Auto) 85.8 H Lymph % (Auto) 8.8 L [place] % (Auto) 4.5 Eos % (Auto) 0.3 Baso % (Auto) 0.6 Neut # (Auto) 17.9 H Lymph # (Auto) 1.8 [place] # (Auto) 0.9 H Eos # (Auto) 0.1 Baso # (Auto) 0.1 Neutrophils % (Manual) 84 H Band Neutrophils % 3 H Lymphocytes % (Manual) 6 L Monocytes % (Manual) 7 Platelet Estimate Slightly increased H Hypochromasia (manual) Slight Poikilocytosis (manual Slight Anisocytosis (manual) Slight Puncture Site pCO2 pO2 HCO3 ABG pH ABG Total CO2 ABG O2 Saturation ABG Base Excess ABG Hemoglobin ABG Carboxyhemoglobin POC ABG HHb (Measured) ABG Methemoglobin [place] Test A-a O2 Difference Respiratory Index Hgb O2 Saturation Vent Mode Mechanical Rate FiO2 Tidal Volume PEEP Sodium 141 Potassium 4.3 Chloride 109 H Carbon Dioxide 28 Anion Gap 8 L BUN 16 Creatinine 0.7 L Est GFR ( Amer) > 60 Est GFR (Non-Af Amer) > 60 POC Glucose (mg/dL) Random Glucose 95 Calcium 7.8 L Phosphorus 5.3 H Magnesium 2.1 Total Bilirubin 1.0 AST 112 H ALT 82 H D Alkaline Phosphatase 352 H Total Protein 7.0 Albumin 2.5 L Globulin 4.5 H Albumin/Globulin Ratio 0.6 L Pleural Total Protein Pleural LDH Pleural Glucose Radiology Impressions: Radiology Impressions Chest X-Ray 04/22/18 06:59 Impression: Lines and tubes in stable position. Large loculated right and small left pleural effusion. Confluent consolidative changes seen within the right mid to lower lung zone as well as the left lung base. Cardiomegaly. Critical Care Progress Note - Nutrition Nutrition: Nutrition Category Date Time Status NPO Diet [DIET] Diets 04/16/18 Breakfast Active Attending/Attestation - Attestation I have personally seen and examined this patient.: Yes I have fully participated in the care of the patient.: Yes I have reviewed all pertinent clinical information: Yes Notes (Text): 04/22/18 17:50 Patient seen and examined in the intensive care unit. Remained intubated on ventilatory support, on propofol Precedex and fentanyl drip Responds by opening eyes Remained febrile with elevated white count For decortication by thoracic on Friday Continue IV antibiotics as per infectious disease Continue NG tube feeding
--- NOTE | 2018-04-22 11:18 | RAD ---
Chest x-ray single frontal view HISTORY: Ventilator Comparison: 04/21/2018 Findings: Lines and tubes in stable position. Large loculated right and small left pleural effusion. Confluent consolidative changes seen within the right mid to lower lung zone as well as the left lung base. Cardiomegaly. Degenerative changes in the spine and shoulders. Impression: Lines and tubes in stable position. Large loculated right and small left pleural effusion. Confluent consolidative changes seen within the right mid to lower lung zone as well as the left lung base. Cardiomegaly.
--- NOTE | 2018-04-22 12:25 | CP.PCM.PN ---
Subjective - Date & Time of Evaluation Date of Evaluation: 04/22/18 Time of Evaluation: 10:20 - Subjective Subjective: Thoracic Surgery Progress note. Dr. Meza Pt seen and examined at bedside. Febrile with Tmax of 102.7 overnight. Still remains intubated and sedated. Right chest tube in place with no air leaks noted. Objective - Vital Signs/Intake and Output Vital Signs (last 24 hours): Temp Pulse Resp BP Pulse Ox 100.8 F H 89 32 H 123/68 96 04/22/18 08:00 04/22/18 09:00 04/22/18 09:00 04/22/18 08:33 04/22/18 09:00 Intake and Output: 04/22/18 04/22/18 06:59 18:59 Intake Total 2954.0 356.1 Output Total 940 40 Balance 2014.0 316.1 - Medications Medications: Current Medications Albuterol/Ipratropium (Duoneb 3 Mg/0.5 Mg (3 Ml) Ud) 3 ml INH RQ6 [facility] Last Admin: 04/22/18 07:48 Dose: 3 ml Docusate Sodium (Colace) 100 mg PO TID JESUS Last Admin: 04/22/18 10:02 Dose: 100 mg Enoxaparin Sodium (Lovenox) 100 mg SC Q12 JESUS Last Admin: 04/22/18 10:02 Dose: 100 mg Folic Acid (Folic Acid) 1 mg PO DAILY [facility] Last Admin: 04/22/18 10:02 Dose: 1 mg Propofol (Diprivan) 1,000 mg in 100 mls @ 2.79 mls/hr IV .Q24H PRN; Protocol PRN Reason: Agitation Last Titration: 04/22/18 11:15 Dose: 50.17 mcg/kg/min, 28 mls/hr Meropenem 1 gm/ Sodium (Chloride) 100 mls @ 100 mls/hr IVPB Q8H JESUS; Protocol Last Admin: 04/22/18 04:34 Dose: 100 mls/hr Clindamycin Phosphate 900 mg/ (Sodium Chloride) 106 mls @ 100 mls/hr IV Q8H JESUS; Protocol Last Admin: 04/22/18 07:30 Dose: 100 mls/hr Dexmedetomidine HCl 200 mcg/ (Sodium Chloride) 50 mls @ 4.65 mls/hr IV TITR PRN; Protocol PRN Reason: Agitation Last Titration: 04/22/18 09:55 Dose: Infused Fentanyl Citrate 2,500 mcg/ (Sodium Chloride) 250 mls @ 19.92 mls/hr IV .[id number] [facility]; Protocol Last Admin: 04/22/18 03:30 Dose: 2 mcg/kg/hr, 19.92 mls/hr Vancomycin HCl 1,500 mg/ (Sodium Chloride) 500 mls @ 200 mls/hr IVPB Q12H [facility]; Protocol Last Admin: 04/22/18 02:30 Dose: 200 mls/hr Gentamicin Sulfate 80 mg/ (Sodium Chloride) 102 mls @ 100 mls/hr IVPB Q8H [facility]; Protocol Last Admin: 04/22/18 08:27 Dose: 100 mls/hr Ibuprofen (Motrin Tab) 400 mg PO Q6H PRN PRN Reason: fever Last Admin: 04/22/18 01:00 Dose: 400 mg Lactobacillus Acidophilus (Bacid Acidophilus) 1 cap PO BID [facility] Last Admin: 04/22/18 10:02 Dose: 1 cap Multivitamins (Hexavitamin) 1 tab PO DAILY [facility] Last Admin: 04/22/18 10:02 Dose: 1 tab Pantoprazole Sodium (Protonix Inj) 40 mg IVP DAILY [facility] Last Admin: 04/22/18 10:01 Dose: 40 mg Sennosides (Senokot Tab) 8.6 mg PO BID [facility] Last Admin: 04/22/18 10:02 Dose: 8.6 mg Thiamine HCl (Vitamin B1 Tab) 100 mg PO DAILY [facility] Last Admin: 04/22/18 10:02 Dose: 100 mg - Labs Labs: 04/22/18 06:09 04/22/18 07:52 PT 13.0 SECONDS (9.7-12.2) H 04/15/18 16:25 INR 1.2 04/15/18 16:25 APTT 35 SECONDS (21-34) H 04/15/18 16:25 - Constitutional Appears: Older Than Stated Age, Cachectic - Head Exam Head Exam: ATRAUMATIC, NORMAL INSPECTION, NORMOCEPHALIC - Eye Exam Eye Exam: EOMI. absent: Scleral icterus - ENT Exam ENT Exam: Mucous Membranes Moist - Respiratory Exam Additional comments: intubated and sedated - Cardiovascular Exam Cardiovascular Exam: Tachycardia. absent: JVD Additional comments: right chest tube in place with no air leaks - GI/Abdominal Exam GI & Abdominal Exam: Soft. absent: Guarding, Rigid, Tenderness, Rebound - Skin Skin Exam: Dry, Intact, Normal Color, Warm Assessment and Plan - Assessment and Plan (Free Text) Assessment: 43yo M with empyema. s/p Chest tube placement on 04/18/18. Plan: - Continue Chest tube to suction - Will plan for OR 04/24/18 - Medical optimization as per primary and ICU teams Further recs as per Dr. Susana Bashir PGY2 surgery
[2018-04-22] MEDS ORDERED: Succinylcholine Chloride 20 mg/ml Syr (5 ml) IV ONE (14:45)
--- NOTE | 2018-04-22 14:55 | CP.PCM.PN ---
Subjective - Date & Time of Evaluation Date of Evaluation: 04/22/18 Time of Evaluation: 14:37 - Subjective Subjective: Reason for reconsultatlio: Sepsis and empyema right chest-Decortication. Requested by DR. Rangel. 43 yo male who presented with a rapidly progressing right chest empyema and right lower lobe consolidation. Initially treated with a pigtail cath drainage, and we inserted a chest tube at the bedside 3 days ago. Although empyema appears to have been evacuated, the pt continue to have septic course requiring pressors, and lower lobe consolidation remains. As requested by Dr. Rangel, he is scheduled for right thoracotomy and decortication. bopsy of lung and pleura on 04-24-18. I discussed the procedure with (risks, benefits, and possibility intra-and postop ) who accepted surgery without reservation. Dr Lea Douglas was present throughout the discussion. vice president of human resources is to obtain the consent. Objective - Vital Signs/Intake and Output Vital Signs (last 24 hours): Temp Pulse Resp BP Pulse Ox 100.6 F H 93 H 22 111/62 99 04/22/18 12:00 04/22/18 13:33 04/22/18 13:33 04/22/18 13:33 04/22/18 13:33 Intake and Output: 04/22/18 04/22/18 06:59 18:59 Intake Total 2954.0 1197.5 Output Total 940 490 Balance 2014.0 707.5 - Medications Medications: Current Medications Albuterol/Ipratropium (Duoneb 3 Mg/0.5 Mg (3 Ml) Ud) 3 ml INH RQ6 [facility] Last Admin: 04/22/18 13:21 Dose: 3 ml Docusate Sodium (Colace) 100 mg PO TID [facility] Last Admin: 04/22/18 13:11 Dose: 100 mg Enoxaparin Sodium (Lovenox) 100 mg SC Q12 [facility] Last Admin: 04/22/18 10:02 Dose: 100 mg Folic Acid (Folic Acid) 1 mg PO DAILY [facility] Last Admin: 04/22/18 10:02 Dose: 1 mg Propofol (Diprivan) 1,000 mg in 100 mls @ 2.79 mls/hr IV .Q24H PRN; Protocol PRN Reason: Agitation Last Admin: 04/22/18 14:11 Dose: 60 mcg/kg/min, 33 mls/hr Meropenem 1 gm/ Sodium (Chloride) 100 mls @ 100 mls/hr IVPB Q8H [facility]; Protocol Last Admin: 04/22/18 13:10 Dose: 100 mls/hr Clindamycin Phosphate 900 mg/ (Sodium Chloride) 106 mls @ 100 mls/hr IV Q8H [facility]; Protocol Last Admin: 04/22/18 07:30 Dose: 100 mls/hr Fentanyl Citrate 2,500 mcg/ (Sodium Chloride) 250 mls @ 19.92 mls/hr IV .[id number] [facility]; Protocol Last Admin: 04/22/18 03:30 Dose: 2 mcg/kg/hr, 19.92 mls/hr Vancomycin HCl 1,500 mg/ (Sodium Chloride) 500 mls @ 200 mls/hr IVPB Q12H [facility]; Protocol Last Admin: 04/22/18 14:26 Dose: 200 mls/hr Gentamicin Sulfate 80 mg/ (Sodium Chloride) 102 mls @ 100 mls/hr IVPB Q8H [facility]; Protocol Last Admin: 04/22/18 08:27 Dose: 100 mls/hr Ibuprofen (Motrin Tab) 400 mg PO Q6H PRN PRN Reason: fever Last Admin: 04/22/18 01:00 Dose: 400 mg Lactobacillus Acidophilus (Bacid Acidophilus) 1 cap PO BID [facility] Last Admin: 04/22/18 10:02 Dose: 1 cap Multivitamins (Hexavitamin) 1 tab PO DAILY [facility] Last Admin: 04/22/18 10:02 Dose: 1 tab Pantoprazole Sodium (Protonix Inj) 40 mg IVP DAILY [facility] Last Admin: 04/22/18 10:01 Dose: 40 mg Sennosides (Senokot Tab) 8.6 mg PO BID [facility] Last Admin: 04/22/18 10:02 Dose: 8.6 mg Thiamine HCl (Vitamin B1 Tab) 100 mg PO DAILY [facility] Last Admin: 04/22/18 10:02 Dose: 100 mg - Labs Labs: 04/22/18 06:09 04/22/18 07:52 PT 13.0 SECONDS (9.7-12.2) H 04/15/18 16:25 INR 1.2 04/15/18 16:25 APTT 35 SECONDS (21-34) H 04/15/18 16:25
--- NOTE | 2018-04-22 18:13 | CP.PCM.PN ---
Subjective - Date & Time of Evaluation Date of Evaluation: 04/22/18 Time of Evaluation: 14:00 - Subjective Subjective: Medical attending note Patient seen, examined and present at bedside. Patient remains intubated but he is awake. I was present with his cardiothoracic surgery described to the patient's with the assistance of ICU resident who is a curyung Tamazight speaker in regards to decortication of patient's empyema in light of worsening respiratory status, increasing white count and spiking fevers. And in terms of conversation both mortality was indicated to the as well as the need for this type of surgery is aware and understands that there is great risk involving the surgery, but does present permit for surgery to happen she understands that it will likely be scheduled for Friday 11 AM. Objective - Vital Signs/Intake and Output Vital Signs (last 24 hours): Temp Pulse Resp BP Pulse Ox 100.4 F H 94 H 22 116/62 100 04/22/18 16:00 04/22/18 17:33 04/22/18 17:33 04/22/18 17:33 04/22/18 17:33 Intake and Output: 04/22/18 04/22/18 06:59 18:59 Intake Total 2954.0 2357.5 Output Total 940 490 Balance 2014.0 1867.5 - Medications Medications: Current Medications Albuterol/Ipratropium (Duoneb 3 Mg/0.5 Mg (3 Ml) Ud) 3 ml INH RQ6 [facility] Last Admin: 04/22/18 13:21 Dose: 3 ml Docusate Sodium (Colace) 100 mg PO TID [facility] Last Admin: 04/22/18 18:01 Dose: 100 mg Enoxaparin Sodium (Lovenox) 100 mg SC Q12 [facility] Last Admin: 04/22/18 10:02 Dose: 100 mg Folic Acid (Folic Acid) 1 mg PO DAILY [facility] Last Admin: 04/22/18 10:02 Dose: 1 mg Propofol (Diprivan) 1,000 mg in 100 mls @ 2.79 mls/hr IV .Q24H PRN; Protocol PRN Reason: Agitation Last Admin: 04/22/18 16:45 Dose: 70 mcg/kg/min, 39 mls/hr Meropenem 1 gm/ Sodium (Chloride) 100 mls @ 100 mls/hr IVPB Q8H [facility]; Protocol Last Admin: 04/22/18 13:10 Dose: 100 mls/hr Clindamycin Phosphate 900 mg/ (Sodium Chloride) 106 mls @ 100 mls/hr IV Q8H [facility]; Protocol Last Admin: 04/22/18 15:51 Dose: 100 mls/hr Fentanyl Citrate 2,500 mcg/ (Sodium Chloride) 250 mls @ 19.92 mls/hr IV .[id number] [facility]; Protocol Last Admin: 04/22/18 03:30 Dose: 2 mcg/kg/hr, 19.92 mls/hr Vancomycin HCl 1,500 mg/ (Sodium Chloride) 500 mls @ 200 mls/hr IVPB Q12H [facility]; Protocol Last Admin: 04/22/18 14:26 Dose: 200 mls/hr Gentamicin Sulfate 80 mg/ (Sodium Chloride) 102 mls @ 100 mls/hr IVPB Q8H [facility]; Protocol Last Admin: 04/22/18 18:01 Dose: 100 mls/hr Dexmedetomidine HCl 200 mcg/ (Sodium Chloride) 50 mls @ 14.9 mls/hr IV TITR PRN; Protocol PRN Reason: Agitation Last Admin: 04/22/18 15:35 Dose: 0.56 mcg/kg/hr, 14 mls/hr Ibuprofen (Motrin Tab) 400 mg PO Q6H PRN PRN Reason: fever Last Admin: 04/22/18 01:00 Dose: 400 mg Lactobacillus Acidophilus (Bacid Acidophilus) 1 cap PO BID [facility] Last Admin: 04/22/18 18:01 Dose: 1 cap Multivitamins (Hexavitamin) 1 tab PO DAILY [facility] Last Admin: 04/22/18 10:02 Dose: 1 tab Pantoprazole Sodium (Protonix Inj) 40 mg IVP DAILY [facility] Last Admin: 04/22/18 10:01 Dose: 40 mg Sennosides (Senokot Tab) 8.6 mg PO BID [facility] Last Admin: 04/22/18 18:01 Dose: 8.6 mg Thiamine HCl (Vitamin B1 Tab) 100 mg PO DAILY [facility] Last Admin: 04/22/18 10:02 Dose: 100 mg - Labs Labs: 04/22/18 06:09 04/22/18 07:52 PT 13.0 SECONDS (9.7-12.2) H 04/15/18 16:25 INR 1.2 04/15/18 16:25 APTT 35 SECONDS (21-34) H 04/15/18 16:25 - Constitutional Appears: Chronically Ill - Head Exam Head Exam: NORMAL INSPECTION Additional comments: intubated prevalons boots roman chest tube right side swelling right/left upper extremities - Eye Exam Eye Exam: EOMI - ENT Exam ENT Exam: Mucous Membranes Dry - Respiratory Exam Respiratory Exam: Decreased Breath Sounds, Rales, Respiratory Distress - Cardiovascular Exam Cardiovascular Exam: REGULAR RHYTHM, +S1, +S2 - GI/Abdominal Exam GI & Abdominal Exam: Soft, Normal Bowel Sounds. absent: Distended, Firm, Guard ing, Rigid, Tenderness, Rebound - Extremities Exam Extremities Exam: Joint Swelling, Pedal Edema Additional comments: prevalon boots - Neurological Exam Neurological Exam: Awake - Skin Skin Exam: Dry, Normal Color, Warm Assessment and Plan (1) Acute respiratory failure Status: Acute (2) Aspiration pneumonia Status: Acute (3) Delirium tremens Status: Acute (4) Constipation Status: Acute (5) Empyema Status: Acute Attending/Attestation - Attestation I have personally seen and examined this patient.: Yes I have fully participated in the care of the patient.: Yes I have reviewed all pertinent clinical information, including history, physical exam and plan: Yes Notes (Text): T-max of 101.9 Fahrenheit white count worsening to 20 today chest x-ray worsening compared to yesterday patient's oxygen status also low as well patient is on 2 sedatives. Liver function tests remain elevated. Cardiothoracic surgery spoke with patient's at bedside in regards to Robaxin decortication is aware and is aware that her does need this type of surgery likely plan for Friday. Patient is on IV antibiotics per infectious disease Patient was recultured yesterday repeat blood cultures are negative times 24 hours Patient did complete upper and lower extremity Dopplers in light of fever pending official read by do suspect it is from patient's likely empyema. Patient remains intubated but he is awake. Assessment/Plan 1). Sepsis Secondary to Right Middle and Lower Lobe Pneumonia and Suspected Empyema * Infectious Disease (Dr. Spring) on case * Cardiothoracic Surgery Dr. Meza: Chest tube placed 04/18/18 and pleural fluid culture will have to be followed up * Leukocytosis, fever, pneumonia/empyema * CT chest from Apr 15, 2018. Cardiomegaly. Trace pericardial effusion. Coronary artery calcifications. Extensive consolidation throughout the right hemithorax with relative sparing of the right lung apex. Small loculated right-sided pleural effusion measuring approximately 2.1 cm in maximum depth superinfection is not excluded. Mild left basal bibasilar atelectasis. Left hemithorax. Otherwise grossly clear. Limited visualization of the upper ab domen reveals hepatomegaly. Diffuse hepatic steatosis with 2 more focal hypodense regions favored to represent focal fatty infiltration. * CT chest from Apr 17 was suboptimal. No evidence of central pulmonary embolus. Interval worsening of airspace consolidation at the right lung contains foci of low-attenuation possible fluid collection since prior study interval worsening of the right-sided multiple likely request for sacral pleural effusion. * CT chest from 04/20/2018 noted for decreased right pleural effusion. Right chest tube. Extensive right lower lobe atelectasis with right middle lobe and left lower lobe segmental atelectasis. Small left pleural effusion. No pneumothorax. Endotracheal tube and nasogastric tube noted. * Suspect possible aspiration due to the history of alcohol use (see below) IV abx: * Azithromycin and Rocephin were discontinued on 04/15/18 * Zosyn 3.375 gm IV Q6H (04/15/18 through 04/16/18) * Tamiflu 75 mg PO 2x/day (04/14/18 through 04/19/18) * Clindamycin 900 mg IV Q8H (04/15/18) * Vancomycin 1.25 gm IV Q12H (04/15/18) dose adjusted to Vancomycin 1500gm IV Q12H (active since 04/21/18) * gentamicin 80mg IV Q12H (active 04/21/18) * Meropenem 1 gm IV Q8H (04/16/18) * Blood Culture 04/13/18: is negative to date * Blood culture 04/21/17: negative. * Pleural fluid (04/18/18): no growth after 3 days * Bronchial Washings: 04/19/18: Normal saphrophytic john paul, fungal culture-prelim * Myocbacterial Culture--Prelim:pending * Procalcitonin: 1.64 2). Respiratory Distress Acute Respiratory Faiilure * Patient was intubated and placed on vent on evening 04/15/18 after he started to have DTs * Currently on Fentanyl, Propofol and Precedex * Remains on drips given low oxygenation status 3). Alcohol Withdrawal DTs * Currently on Fentanyl, Propofol and Precedex 4). Bilateral Perinephric Stranding As seen on CT Abdomen/Pelvis * On exam 04/14/18 and 04/15/18 there was NO CVA tenderness * UA shows NEGATIVE Nitrate, Ketones, and LE * Doubt that this is Pyelonephritis as Urine Culture is negative 5). Alcohol Abuse * Patient revealed 04/14/18 that he drank shots and multiple beers twice a week but told overnight team at time of admission that he did this 5x per week. * Last drink was this past Friday04/10/18 as per patient 6). Hyponatremia (resolved) * Likely SIADH * TSH and T4 are normal * Morning Cortisol normal * Triglycerides normal * Urine Osm was high * Urine Na was 35 7). Tachycardia (resolved) * Could this be secondary to the ongoing fever secondary to the pneumonia? * EKG shows Sinus Tachycardia * Tylenol 650 mg OGT Q4H PRN Fever * Normal sinus at bedside; likely secondary to DTs 8). Elevated LFTs and Hepatic Parenchymal Disease (as seen CT Abdomen) Likely secondary to suspected alcohol abuse * Hepatitis Panel negative * HIV negative * UDS negative * On CT scan noted hepatomegaly * uptrending mildly 9). Hypokalemia * monitor and replete 10). Hypomagnesemia * monitor and replete 11). Constipation * As seen on Obstruction Series * Senokot * Colace 100 mg PO 3x/day * Had bowel movement 04/15/18 * Patient to get an enema today 04/21/18--> had bowel movement 04/22/18 12). Prophylaxis * DVT risk score of 2 based upon Age and diagnosis of Sepsis: lovenox 40mg subqdaily Bilateral SCDs * As patient was intubated 04/15/18, Protonix 40 mg IV 1x/day * Jevity via OGT started at 20 ml/hr with goal of 45 ml/hr * Lactobacillus PO 2x/day Updates: 04/16/18: Mary was at bedside and he she was updated on patient's recent developements and status with the help of ICU residen Dr. Severino Tate 04/17/18: Two Sisters, Cousin, Nephew were at bedside and he she was updated on patient's recent developements and status with the help of ICU residen Dr. Severino Tate 04/18/18: with the help of brother in law Carson (who speaks Yemeni) family members included Mary, were udated as to patient status 04/19/18: Two Sisters at the bedside were updated with the help of PATRICIA Moreno who translated Tamazight 04/20/18: spoke with and sister at bedside 04/21/18: no family present at bedside 04/22/18: I was present at bedside with cardiothoracic surgeon, ICU resident Janay Martin as well as will need a thoracic surgery explained that patient would need a decortication/VATS planned for this Friday. Given patient's empyema and not improving status. is aware that the surgery carries greater risk and that the and depending on the nature of the surgery will ultimately affect patient's ability to be extubated. She is aware that we hope for good outcomes however she does understand it does carry a high mortality. Dr. Hoffman at bedside translating on behalf of chronic cardiothoracic surgeon as well.
[2018-04-23] MEDS: Albuterol-Ipratrop 3 mg / 0.5 (3 ml) UD INH SCH ×3 (02:19→20:21)
[2018-04-23] MEDS: Propofol 10 mg/ml 1,000 MG/100 ML VIAL IV PRN ×6 (02:50→21:50)
[2018-04-23] MEDS: Dexmedetomidine Hydrochloride 200 MCG in Sodium Chloride 0.9% 48 ML IV PRN ×6 (02:53→21:49)
[2018-04-23] MEDS: Gentamicin 80 mg in 0.9% NS 80 MG/100 ML BAG IVPB SCH ×3 (03:15→18:14)
[2018-04-23] MEDS: Meropenem 1 GM in Sodium Chloride 0.9% 100 ML IVPB SCH ×3 (05:30→21:37)
[2018-04-23 05:38] LABS: ABG ALLEN TEST POS; ARTERIAL BLOOD GAS HCO3 26.1 mmol/L (21-28); ARTERIAL BLOOD GAS HEMOGLOBIN 9.9 g/dL (11.7-17.4); ARTERIAL BLOOD GAS O2 SAT 99.7 % (95-98); ARTERIAL BLOOD GAS PCO2 39 mm/Hg (35-45); ARTERIAL BLOOD GAS PH 7.43 (7.35-7.45); ARTERIAL BLOOD GAS PO2 86 mm/Hg (80-100); ARTERIAL BLOOD GAS TCO2 27.1 mmol/L (22-28)
[2018-04-23 06:18] LABS: BASO # 0.1 K/uL (0.0-0.2); BASO % 0.9 % (0.0-2.0); EOS # 0.1 K/uL (0.0-0.7); EOS % 0.9 % (0.0-4.0); HEMOGLOBIN 10.1 g/dL (12.0-18.0); LYMPH % 9.4 % (20.0-40.0); MEAN CELL VOLUME 89.7 fL (80.0-94.0); MEAN CORPUSCULAR HEMOGLOBIN 29.6 pg (27.0-31.0); MEAN PLATELET VOLUME 9.3 fL (7.2-11.7); MONO # 0.5 K/uL (0.0-0.8); MONO % 4.4 % (0.0-10.0); NEUT # 8.7 K/uL (1.8-7.0); NEUT % 84.4 % (50.0-75.0); PLATELET COUNT 464 K/uL (130-400); RED CELL DISTRIBUTION WIDTH 14.6 % (11.5-14.5); WHITE BLOOD COUNT 10.3 K/uL (4.8-10.8)
[2018-04-23 06:35] LABS: ALB/GLOB RATIO 0.5 (1.0-2.1); ALBUMIN 2.2 g/dL (3.5-5.0); ALT/SGPT 67 U/L (21-72); AST/SGOT 77 U/L (17-59); BLOOD UREA NITROGEN 16 mg/dL (9-20); CALCIUM 7.7 mg/dl (8.6-10.4); GFR NON-AFRICAN AMERICAN > 60
--- NOTE | 2018-04-23 07:54 | CP.PCM.PN ---
Subjective - Date & Time of Evaluation Date of Evaluation: 04/23/18 Time of Evaluation: 07:00 - Subjective Subjective: CT Surgery Progress note. Dr. Meza Pt seen and examined at bedside. No new events reported overnight. Still intubated and sedated. CT in place to suction, 125cc output over 24 hours. Tmax 101.5F. Objective - Vital Signs/Intake and Output Vital Signs (last 24 hours): Temp Pulse Resp BP Pulse Ox 101 F H 85 24 115/66 98 04/23/18 04:00 04/23/18 07:09 04/23/18 07:09 04/23/18 07:09 04/23/18 07:09 Intake and Output: 04/23/18 04/23/18 06:59 18:59 Intake Total 3017.9 Output Total 805 Balance 2212.9 - Medications Medications: Current Medications Albuterol/Ipratropium (Duoneb 3 Mg/0.5 Mg (3 Ml) Ud) 3 ml INH RQ6 [facility] Last Admin: 04/23/18 02:19 Dose: 3 ml Docusate Sodium (Colace) 100 mg PO TID [facility] Last Admin: 04/22/18 18:01 Dose: 100 mg Enoxaparin Sodium (Lovenox) 100 mg SC Q12 [facility] Last Admin: 04/22/18 22:38 Dose: 100 mg Folic Acid (Folic Acid) 1 mg PO DAILY [facility] Last Admin: 04/22/18 10:02 Dose: 1 mg Propofol (Diprivan) 1,000 mg in 100 mls @ 2.79 mls/hr IV .Q24H PRN; Protocol PRN Reason: Agitation Last Admin: 04/23/18 06:30 Dose: 50 mcg/kg/min, 28 mls/hr Meropenem 1 gm/ Sodium (Chloride) 100 mls @ 100 mls/hr IVPB Q8H [facility]; Protocol Last Admin: 04/23/18 05:30 Dose: 100 mls/hr Clindamycin Phosphate 900 mg/ (Sodium Chloride) 106 mls @ 100 mls/hr IV Q8H [facility]; Protocol Last Admin: 04/23/18 06:36 Dose: 100 mls/hr Fentanyl Citrate 2,500 mcg/ (Sodium Chloride) 250 mls @ 19.92 mls/hr IV .[id number] [facility]; Protocol Last Admin: 04/23/18 01:25 Dose: Not Given Vancomycin HCl 1,500 mg/ (Sodium Chloride) 500 mls @ 200 mls/hr IVPB Q12H [facility]; Protocol Last Admin: 04/23/18 03:15 Dose: 200 mls/hr Dexmedetomidine HCl 200 mcg/ (Sodium Chloride) 50 mls @ 14.9 mls/hr IV TITR PRN; Protocol PRN Reason: Agitation Last Admin: 04/23/18 06:53 Dose: 0.56 mcg/kg/hr, 14 mls/hr Gentamicin Sulfate/Sodium Chloride (Gentamicin 80mg/100ml Ns) 80 mg in 100 mls @ 100 mls/hr IVPB Q8H [facility]; Protocol Last Admin: 04/23/18 03:15 Dose: 100 mls/hr Ibuprofen (Motrin Tab) 400 mg PO Q6H PRN PRN Reason: fever Last Admin: 04/23/18 01:50 Dose: 400 mg Lactobacillus Acidophilus (Bacid Acidophilus) 1 cap PO BID [facility] Last Admin: 04/22/18 18:01 Dose: 1 cap Multivitamins (Hexavitamin) 1 tab PO DAILY [facility] Last Admin: 04/22/18 10:02 Dose: 1 tab Pantoprazole Sodium (Protonix Inj) 40 mg IVP DAILY [facility] Last Admin: 04/22/18 10:01 Dose: 40 mg Sennosides (Senokot Tab) 8.6 mg PO BID [facility] Last Admin: 04/22/18 18:01 Dose: 8.6 mg Thiamine HCl (Vitamin B1 Tab) 100 mg PO DAILY [facility] Last Admin: 04/22/18 10:02 Dose: 100 mg - Labs Labs: 04/23/18 06:11 04/23/18 06:11 PT 13.0 SECONDS (9.7-12.2) H 04/15/18 16:25 INR 1.2 04/15/18 16:25 APTT 35 SECONDS (21-34) H 04/15/18 16:25 - Constitutional Appears: Older Than Stated Age - Head Exam Head Exam: ATRAUMATIC, NORMAL INSPECTION, NORMOCEPHALIC - Eye Exam Eye Exam: EOMI. absent: Scleral icterus - ENT Exam ENT Exam: Mucous Membranes Moist - Respiratory Exam Additional comments: Chest tube in place to wall suction, 125cc over 24hours - GI/Abdominal Exam GI & Abdominal Exam: Soft. absent: Guarding, Rigid, Tenderness, Rebound - Neurological Exam Additional comments: Intubated and sedated - Skin Skin Exam: Dry, Intact, Normal Color, Warm Assessment and Plan - Assessment and Plan (Free Text) Assessment: 43yo M with empyema. s/p Chest tube placement on 04/18/18. Plan: - Continue Chest tube to suction - Will plan for OR 04/24/18 for Right Thoracotomy and decortication - We will obtain written consent today - Medical optimization as per primary and ICU teams Further recs as per Dr. Susana Bashir PGY2 surgery
[2018-04-23 08:01] LABS: LYMPHOCYTE 8 % (20-40); MONOCYTE 2 % (0-10); NEUTROPHIL 90 % (50-75); PLATELET ESTIMATE SLIGHTLY INCREASED (NORMAL); TOTAL CELLS COUNTED 100
[2018-04-23 08:03] LABS: HYPOCHROMIC SLIGHT
--- NOTE | 2018-04-23 08:30 | RAD ---
Date of service: 04/22/2018 HISTORY: s/P TLC placement right IJ COMPARISON: 04/22/2018 FINDINGS: LUNGS: Grossly clear left lung. The homogeneous opacification of the inferior right joao thorax-blends with right lateral pleural probable loculated effusion and thickening. Minimal fluid with or without concomitant subsegmental atelectasis in the right minor fissure suggested. This appearance is similar. Right chest tube insertion right lateral mid hemithorax tip projects paraspinous location a few cm below the rashad. This is similar. Endotracheal tube tip approximately 2 to 2.5 cm cephalad to rashad. PLEURA: Right pleural effusion extensive with loculation inferred. Grossly similar. No pneumothorax seen CARDIOVASCULAR: No aortic atherosclerotic calcification present. Cardiomegaly-similar probable minimal pulmonary venous congestion-similar. Interval insertion of a right internal jugular vein triple-lumen catheter tip superior vena cava. OSSEOUS STRUCTURES: No significant abnormalities. VISUALIZED UPPER ABDOMEN: NG tube tip near gastric antrum. OTHER FINDINGS: None. IMPRESSION: Interval right triple-lumen catheter insertion the internal jugular vein approach tip superior vena cava. No pneumothorax appreciated. Endotracheal tube and nasogastric tube appear in satisfactory position. Right sided chest tube tip similar position correlate with its function. Size of the right pleural effusion which appears loculated is similar. Assumed passive compressive atelectasis right lung base with a moderate-large right pleural effusion.
[2018-04-23] MEDS: Multiple Vitamins Tab PO SCH (10:11)
[2018-04-23] MEDS: Lactobacillus Acidophilus 500 MU Cap PO SCH ×2 (10:25→17:35)
[2018-04-23] MEDS: Enoxaparin 100 mg Syringe SC SCH (10:25)
--- NOTE | 2018-04-23 13:37 | VASCLAB ---
Date of service: 04/21/2018 PROCEDURE: Upper Extremity Venous Duplex Exam HISTORY: swelling, fever PRIORS: None. TECHNIQUE: Bilateral upper extremity, internal jugular, subclavian, axillary, brachial, ulnar, radial, basilic and upper cephalic veins were evaluated. Flow was assessed with color Doppler, compressibility, assessment of phasic flow and augmentation response. Report prepared by Bg Amado, AUDREY, RVT FINDINGS: RIGHT: 1. Internal Jugular: 1.1. Compressibility - Fully compressible: Thrombus - None : Flow - Phasic: Augmentation -Normal: Reflux - None. 2. Subclavian: 2.1. Compressibility - Fully compressible: Thrombus - None : Flow - Phasic: Augmentation -Normal: Reflux - None. 3. Axillary: 3.1. Compressibility - Fully compressible: Thrombus - None : Flow - Phasic: Augmentation -Normal: Reflux - None. 4. Brachial: 4.1. Compressibility - Fully compressible: Thrombus - None: Flow - Phasic: Augmentation -Normal: Reflux - None. 5. Ulnar: 5.1. Compressibility - Fully compressible: Thrombus - None: Flow - Phasic: Augmentation -Normal: Reflux - None. 6. Radial: 6.1. Compressibility - Fully compressible: Thrombus - None: Flow - Phasic: Augmentation - Normal: Reflux - None. 7. Cephalic: 7.1. Compressibility - Partial: Thrombus - Acute: Flow - Reduced : Augmentation -Reduced: Reflux - None. 8. Basilic: 8.1. Compressibility - Fully compressible: Thrombus - None: Flow - Phasic: Augmentation -Normal: Reflux - None. LEFT: 1. Internal Jugular: 1.1. Compressibility - Fully compressible: Thrombus - None : Flow - Phasic: Augmentation -Normal: Reflux - None. 2. Subclavian: 2.1. Compressibility - Fully compressible: Thrombus - None : Flow - Phasic: Augmentation -Normal: Reflux - None. 3. Axillary: 3.1. Compressibility - Fully compressible: Thrombus - None : Flow - Phasic: Augmentation -Normal: Reflux - None. 4. Brachial: 4.1. Compressibility - Fully compressible: Thrombus - None: Flow - Phasic: Augmentation -Normal: Reflux - None. 5. Ulnar: 5.1. Compressibility - Fully compressible: Thrombus - None: Flow - Phasic: Augmentation -Normal: Reflux - None. 6. Radial: 6.1. Compressibility - Fully compressible: Thrombus - None: Flow - Phasic: Augmentation - Normal: Reflux - None. 7. Cephalic: 7.1. Compressibility - Partial: Thrombus - Acute: Flow - Reduced : Augmentation -Reduced: Reflux - None. 8. Basilic: 8.1. Compressibility - Fully compressible: Thrombus - None: Flow - Phasic: Augmentation -Normal: Reflux - None. OTHER FINDINGS: Right: None. Left: None. IMPRESSION: Right: No evidence of vein thrombosis of the right upper extremity with excellent venous flow. Normal valve function noted of the right side. Left: No evidence of vein thrombosis of the left upper extremity with excellent venous flow. Normal valve function noted of the left side. Acute thrombosis of bilateral forearm cephalic veins with severe reduction of the venous return.
--- NOTE | 2018-04-23 13:38 | VASCLAB ---
Date of service: 04/21/2018 PROCEDURE: Lower Extremity Venous Duplex Exam. HISTORY: swelling, fever PRIORS: None. TECHNIQUE: Bilateral common femoral, femoral, popliteal and posterior tibial, peroneal and great saphenous veins were evaluated. Flow was assessed with color Doppler, compressibility, assessment of phasic flow and augmentation response. Report prepared by Bg Amado, BS, RVT FINDINGS: RIGHT: 1. Common Femoral Vein: 1.1. Compressibility - Fully compressible: Thrombus - None : Flow - Phasic: Augmentation -Normal: Reflux - None. 2. Femoral Vein: 2.1. Compressibility - Fully compressible: Thrombus - None : Flow - Phasic: Augmentation -Normal: Reflux - None. 3. Popliteal Vein: 3.1. Compressibility - Fully compressible: Thrombus - None : Flow - Phasic: Augmentation -Normal: Reflux - None. 4. Posterior Tibial Vein: 4.1. Compressibility - Fully compressible: Thrombus - None: Flow - Phasic: Augmentation -Normal: Reflux - None. 5. Peroneal Vein: 5.1. Compressibility - Fully compressible: Thrombus - None: Flow - Phasic: Augmentation -Normal: Reflux - None. 6. Great Saphenous Vein: 6.1. Compressibility - Fully compressible: Thrombus - None: Flow - Phasic: Augmentation - Normal: Reflux - Yes. LEFT: 1. Common Femoral Vein: 1.1. Compressibility - Fully compressible: Thrombus - None: Flow - Phasic: Augmentation -Normal: Reflux - None. 2. Femoral Vein: 2.1. Compressibility - Fully compressible: Thrombus - None: Flow - Phasic: Augmentation -Normal: Reflux - None. 3. Popliteal Vein: 3.1. Compressibility - Fully compressible: Thrombus - None : Flow - Phasic: Augmentation -Normal: Reflux - None. 4. Posterior Tibial Vein: 4.1. Compressibility - Fully compressible: Thrombus - None: Flow - Phasic: Augmentation -Normal: Reflux - None. 5. Peroneal Vein: 5.1. Compressibility - Fully compressible: Thrombus - None: Flow - Phasic: Augmentation -Normal: Reflux - None. 6. Great Saphenous Vein: 6.1. Compressibility - Fully compressible: Thrombus - None: Flow - Phasic: Augmentation - Normal: Reflux - None. OTHER FINDINGS: Right: None significant. Left: None significant. IMPRESSION: Right: No evidence of deep or superficial vein thrombosis of the right lower extremity. Valvular incompetence of the right greater saphenous vein. Left: No evidence of deep or superficial vein thrombosis of the left lower extremity. Normal valve function noted of the left side.
--- NOTE | 2018-04-23 14:02 | CP.CCUPN ---
<Misael Tate - Last Filed: 04/23/18 13:59> CCU Subjective - Physician Review Subjective (Free Text): PGY-[address] Altman Service Patient is seen and examined at bedside. Continues to be intubated and sedated. Patient had bowel movement yesterday. TLC placed on left IJ yesterday, working well. planned for VATS on Friday. ROS unattainable due to patient's condition. Critical Care Time Spent (in minutes): 40 CCU Objective - Vital Signs / Intake & Output Vital Signs (Last 4 hours): Vital Signs Temp Pulse Resp BP Pulse Ox 04/23/18 13:28 105/62 04/23/18 13:09 105/62 04/23/18 13:08 83 23 95 04/23/18 13:00 83 21 95 04/23/18 12:09 125 H 16 108/56 L 95 04/23/18 12:00 101.1 F H 132 H 18 108/56 L 98 04/23/18 11:46 114 H 18 113/60 98 04/23/18 11:09 85 18 109/58 L 97 04/23/18 11:00 86 15 97 04/23/18 10:09 89 8 L 114/61 96 04/23/18 10:00 89 19 97 Intake and Output (Last 8hrs): Intake & Output 04/22/18 04/23/18 04/23/18 22:59 06:59 14:59 Intake Total 2154.1 2120.2 1393.5 Output Total 740 490 709 Balance 1414.1 1630.2 684.5 Weight 219 lb 14.4 oz Intake: IV 650 300 500 Intake, IV Amount 1164.1 1280.2 583.5 Left Hand 650 Medial Port Internal 112 98 Jugular Proximal IJ TLC 148.8 130.2 Proximal TLC 219.4 195.3 Right Distal Port 800 160 Antecubital Right Forearm 267.3 Right Hand 98 Right Upper arm 148.8 Tube Feeding 240 240 210 Other 100 300 100 Output: Chest Tube Drainage 75 Right Anterior Chest 75 Urine 665 490 709 Urethral (Peña) 665 490 709 Other: # Bowel Movements 1 - Physical Exam Head: Positive for: Atraumatic, Normocephalic Pupils: Positive for: PERRL Extroacular Muscles: Positive for: EOMI Conjunctiva: Positive for: Normal Neck: Positive for: Normal Range of Motion Respiratory/Chest: Positive for: Decreased Breath Sounds (right middle and lower lobes ), Other (intubated and sedated ). Negative for: Respiratory Distress, Accessory Muscle Use Cardiovascular: Positive for: Regular Rate and Rhythm, Normal S1, S2 Abdomen: Positive for: Distention, Normal Bowel Sounds. Negative for: Tenderness Upper Extremity: Positive for: Normal Inspection. Negative for: Cyanosis, Edema Lower Extremity: Positive for: Normal Inspection. Negative for: Edema Neurological: Positive for: Other (unable to assess due to pts condition ) Skin: Positive for: Warm, Dry, Normal Color Psychiatric: Positive for: Other (sedated, not awake or oriented, opens eyes). Negative for: Alert, Oriented x 3 - Medications Active Medications: Active Medications Generic Name Dose Route Start Last Admin Trade Name Freq PRN Reason Stop Dose Admin Albuterol/Ipratropium 3 ml 04/15/18 08:00 04/23/18 07:58 Duoneb 3 Mg/0.5 Mg (3 Ml) Ud INH 3 ml RQ6 JESUS Administration Docusate Sodium 100 mg 04/14/18 18:30 04/23/18 10:15 Colace PO 100 mg TID JESUS Administration Enoxaparin Sodium 100 mg 04/21/18 22:00 04/23/18 10:25 Lovenox SC 100 mg Q12 JESUS Administration Folic Acid 1 mg 04/14/18 10:00 04/23/18 10:11 Folic Acid PO 1 mg DAILY JESUS Administration Furosemide 40 mg 04/23/18 13:00 04/23/18 13:28 Lasix IVP 40 mg Q12H JESUS Administration Propofol 1,000 mg in 100 mls @ 2.79 mls/hr 04/15/18 21:20 04/23/18 13:22 Diprivan IV 50 mcg/kg/min .Q24H PRN 28 mls/hr Agitation Administration Protocol 5 MCG/KG/MIN Meropenem 1 gm/ Sodium 100 mls @ 100 mls/hr 04/16/18 21:00 04/23/18 13:33 Chloride IVPB 100 mls/hr Q8H JESUS Administration Protocol Clindamycin Phosphate 900 mg/ 106 mls @ 100 mls/hr 04/16/18 23:30 04/23/18 06:36 Sodium Chloride IV 100 mls/hr Q8H JESUS Administration Protocol Fentanyl Citrate 2,500 mcg/ 250 mls @ 19.92 mls/hr 04/19/18 22:00 04/23/18 10:51 Sodium Chloride IV 2 mcg/kg/hr .[id number] JESUS 19.92 mls/hr Administration Protocol 2 MCG/KG/HR Vancomycin HCl 1,500 mg/ 500 mls @ 200 mls/hr 04/22/18 03:00 04/23/18 03:15 Sodium Chloride IVPB 200 mls/hr Q12H JESUS Administration Protocol Dexmedetomidine HCl 200 mcg/ 50 mls @ 14.9 mls/hr 04/22/18 15:16 04/23/18 10:08 Sodium Chloride IV 0.56 mcg/kg/hr TITR PRN 14 mls/hr Agitation Administration Protocol 0.6 MCG/KG/HR Gentamicin Sulfate/Sodium Chloride 80 mg in 100 mls @ 100 mls/hr 04/23/18 02:00 04/23/18 11:00 Gentamicin 80mg/100ml Ns IVPB 100 mls/hr Q8H JESUS Administration Protocol Ibuprofen 400 mg 04/19/18 03:31 04/23/18 10:11 Motrin Tab PO 400 mg Q6H PRN Administration fever Lactobacillus Acidophilus 1 cap 04/14/18 18:45 04/23/18 10:25 Bacid Acidophilus PO 1 cap BID JESUS Administration Multivitamins 1 tab 04/14/18 10:00 04/23/18 10:11 Hexavitamin PO 1 tab DAILY JESUS Administration Pantoprazole Sodium 40 mg 04/14/18 10:00 04/23/18 10:15 Protonix Inj IVP 40 mg DAILY JESUS Administration Sennosides 8.6 mg 04/14/18 00:15 04/23/18 10:20 Senokot Tab PO 8.6 mg BID JESUS Administration Thiamine HCl 100 mg 04/14/18 10:00 04/23/18 10:15 Vitamin B1 Tab PO 100 mg DAILY JESUS Administration - Patient Studies Lab Studies: Microbiology Studies 04/21/18 17:04 Blood Culture - Preliminary Blood NO GROWTH AFTER 24 HOURS 04/21/18 15:00 Blood Culture - Preliminary Blood NO GROWTH AFTER 24 HOURS 04/21/18 17:04 Urine Culture - Final Urine,Peña No Growth (<1,000 CFU/ML) 04/18/18 17:49 Gram Stain - Final Pleural Fluid Body Fluid Culture - Final No growth. Lab Studies 04/23/18 04/23/18 04/23/18 Range/Units 06:11 06:11 05:27 WBC 10.3 D (4.8-10.8) K/uL RBC 3.40 L (4.40-5.90) Mil/uL Hgb 10.1 L (12.0-18.0) g/dL Hct 30.5 L (35.0-51.0) % MCV 89.7 (80.0-94.0) fL MCH 29.6 (27.0-31.0) pg MCHC 33.0 (33.0-37.0) g/dL RDW 14.6 H (11.5-14.5) % Plt Count 464 H (130-400) K/uL MPV 9.3 (7.2-11.7) fL Neut % (Auto) 84.4 H (50.0-75.0) % Lymph % (Auto) 9.4 L (20.0-40.0) % [place] % (Auto) 4.4 (0.0-10.0) % Eos % (Auto) 0.9 (0.0-4.0) % Baso % (Auto) 0.9 (0.0-2.0) % Neut # (Auto) 8.7 H (1.8-7.0) K/uL Lymph # (Auto) 1.0 (1.0-4.3) K/uL [place] # (Auto) 0.5 (0.0-0.8) K/uL Eos # (Auto) 0.1 (0.0-0.7) K/uL Baso # (Auto) 0.1 (0.0-0.2) K/uL Neutrophils % (Manual) 90 H (50-75) % Lymphocytes % (Manual) 8 L (20-40) % Monocytes % (Manual) 2 (0-10) % Platelet Estimate Slightly increased H (NORMAL) Hypochromasia (manual) Slight Puncture Site Rr pCO2 39 (35-45) mm/Hg pO2 86 (80-100) mm/Hg HCO3 26.1 (21-28) mmol/L ABG pH 7.43 (7.35-7.45) ABG Total CO2 27.1 (22-28) mmol/L ABG O2 Saturation 99.7 H (95-98) % ABG Base Excess 1.5 (-2.0-3.0) mmol/L ABG Hemoglobin 9.9 L (11.7-17.4) g/dL ABG Carboxyhemoglobin 2.5 H (0.5-1.5) % POC ABG HHb (Measured) 0.3 (0.0-5.0) % ABG Methemoglobin 0.6 (0.0-3.0) % [place] Test Pos A-a O2 Difference 436.0 mm/Hg Respiratory Index 5.1 Hgb O2 Saturation 96.5 (95.0-98.0) % Vent Mode Prvc Mechanical Rate 18 FiO2 80.0 % Tidal Volume 450 PEEP 8 Sodium 140 (132-148) mmol/L Potassium 3.9 (3.6-5.2) mmol/L Chloride 110 H (98-107) mmol/L Carbon Dioxide 30 (22-30) mmol/L Anion Gap 4 L (10-20) BUN 16 (9-20) mg/dL Creatinine 0.7 L (0.8-1.5) mg/dL Est GFR ( Amer) > 60 Est GFR (Non-Af Amer) > 60 Random Glucose 96 (75-110) mg/dL Calcium 7.7 L (8.6-10.4) mg/dl Phosphorus 4.3 (2.5-4.5) mg/dL Magnesium 2.1 (1.6-2.3) mg/dL Total Bilirubin 0.7 (0.2-1.3) mg/dL AST 77 H D (17-59) U/L ALT 67 (21-72) U/L Alkaline Phosphatase 269 H D (38-126) U/L Total Protein 6.5 (6.3-8.3) g/dL Albumin 2.2 L (3.5-5.0) g/dL Globulin 4.3 H (2.2-3.9) gm/dL Albumin/Globulin Ratio 0.5 L (1.0-2.1) Laboratory Results - last 24 hr 04/23/18 04/23/18 04/23/18 05:27 06:11 06:11 WBC 10.3 D RBC 3.40 L Hgb 10.1 L Hct 30.5 L MCV 89.7 MCH 29.6 MCHC 33.0 RDW 14.6 H Plt Count 464 H MPV 9.3 Neut % (Auto) 84.4 H Lymph % (Auto) 9.4 L [place] % (Auto) 4.4 Eos % (Auto) 0.9 Baso % (Auto) 0.9 Neut # (Auto) 8.7 H Lymph # (Auto) 1.0 [place] # (Auto) 0.5 Eos # (Auto) 0.1 Baso # (Auto) 0.1 Neutrophils % (Manual) 90 H Lymphocytes % (Manual) 8 L Monocytes % (Manual) 2 Platelet Estimate Slightly increased H Hypochromasia (manual) Slight Puncture Site Rr pCO2 39 pO2 86 HCO3 26.1 ABG pH 7.43 ABG Total CO2 27.1 ABG O2 Saturation 99.7 H ABG Base Excess 1.5 ABG Hemoglobin 9.9 L ABG Carboxyhemoglobin 2.5 H POC ABG HHb (Measured) 0.3 ABG Methemoglobin 0.6 [place] Test Pos A-a O2 Difference 436.0 Respiratory Index 5.1 Hgb O2 Saturation 96.5 Vent Mode Prvc Mechanical Rate 18 FiO2 80.0 Tidal Volume 450 PEEP 8 Sodium 140 Potassium 3.9 Chloride 110 H Carbon Dioxide 30 Anion Gap 4 L BUN 16 Creatinine 0.7 L Est GFR ( Amer) > 60 Est GFR (Non-Af Amer) > 60 Random Glucose 96 Calcium 7.7 L Phosphorus 4.3 Magnesium 2.1 Total Bilirubin 0.7 AST 77 H D ALT 67 Alkaline Phosphatase 269 H D Total Protein 6.5 Albumin 2.2 L Globulin 4.3 H Albumin/Globulin Ratio 0.5 L Radiology Impressions: Radiology Impressions Duplex Scan Lower Extremity Artery 04/21/18 13:26 IMPRESSION: Right: No evidence of deep or superficial vein thrombosis of the right lower extremity. Valvular incompetence of the right greater saphenous vein. Left: No evidence of deep or superficial vein thrombosis of the left lower extremity. Normal valve function noted of the left side. Duplex Scan Upper Extremity Artery 04/21/18 13:26 IMPRESSION: Right: No evidence of vein thrombosis of the right upper extremity with excellent venous flow. Normal valve function noted of the right side. Chest X-Ray 04/22/18 19:19 IMPRESSION: Interval right triple-lumen catheter insertion the internal jugular vein approach tip superior vena cava. No pneumothorax appreciated. Endotracheal tube and nasogastric tube appear in satisfactory position. Right sided chest tube tip similar position correlate with its function. Size of the right pleural effusion which appears loculated is similar. Assumed passive compressive atelectasis right lung base with a moderate-large right pleural effusion. Critical Care Progress Note - Ventilator Checklist Head of Bed 30 Degrees: Yes Daily Sedation Vacation: Yes Daily Assessment of Readiness to Wean: Yes Daily Spontaneous Breathing Trial: Yes PUD Prophalyxis: Yes DVT Prophylaxis: Yes Oral Care with Chlorhexidine Gluconate {CHG}: Yes - Vent Settings MODE:: PRVC TIDAL VOLUME:: 450 RESP RATE:: 18 FIO2:: 70 PEEP:: 8 - Extremities/Vascular Does the Patient have a Central Venous Catheter?: Yes Insertion Site: Internal Jugular Vein Does the Patient need a Central Venous Catheter?: Yes Does the Patient have a Peña Catheter?: Yes Does the Patient need a Peña Catheter?: Yes - Prophylaxis GI Prophylaxis GI: PPI - Prophylaxis DVT Prophylaxis DVT: Lovenox - Nutrition Nutrition: Nutrition Category Date Time Status NPO Diet [DIET] Diets 04/16/18 Breakfast Active Assessment/Plan - Assessment and Plan (Free Text) Plan: 43 year old male with no pmhx presenting to ED with RLQ abdominal pain, fever and chills on 04/14, constipated x 3 days, code sepsis, elevated WBC, bandemia, elevated lactate, CT shows Rt lung consolidation, most likely due to aspiration PNA vs CA PNA. thoracentesis 02/13 removed 1.2 L of empyema, 02/13 intubated for worsening respiratory failure, hypoxia and DT, sedated with propofol, Precedex, fentanyl drip, chest tube placed on 04/18 and EET replaced for thick purulent material observed, bronchial washing on 04/19. 04/20 positive for DVT on b/l cephalic veins, TLC placed on 04/20. Cardiothoracic surgery planning on VAT S/decortication on monday 04/24. Neuro alcohol withdrawal syndrome with DT on 04/15 intubated - agitatated yesterday afternoon Restarted precedex titrate propofol for DC and continue fentanyl Tmax 101.5 F Pulm hypoxic respiratory failure secondary to Community acquired PNA vs aspiration PNA with empyema. continue to be intubated, PRVC 18/450/ CT Chest - decreased right pleural effusion, extensive right lower lobe atelectasis with right middle lobe and left lower lobe subsegmental atelectasis. Small left pleural effusion. No pneumothroax. Chest xray 04/22 - Large loculated right and small left pleural effusion, confluent consolidative changes seen within the right mid to lower lung zone, and left lung base. Cxray 04/23 - continue or possible worsening pleural effusion right side - p ending official read Cardio thoracic sx consult - Dr Meza - VATS/decortication sx planned for friday - risk and benefits discussed with yesterday with Dr Meza present and Attending Dr Mg as witness. continue Duonebs 125cc chest tube - continue monitor chest tube drainage Cardio HR and BP wnl continue to monitor CTA - no evidence of PE Doppler - abnormal findings b/l cephalic veins TLC placed on right IJ to prevent using lines in b/l upper ext Lovenox 100mg BID for DVT - future hold before VATS on saturday 03/25 GI Tube feedings Jevity initial rate @ 20, increase 20, goal at 45 NPO last BM yesterday cont colace, senokot Renal monitor urine output renal function wnl - continue to monitor Lasix 40mg Q12H for positive input calculated ID today WBC went down to 10.3 from 20 continue clinda, genta meropenem and vanco Vanco through - 9.0 Pleural fluid - no growth normal saprophytic john paul from bronchial washings Dr Spring - ID follow up recs HIV, Hep, atypicals - negative PPX DVT: lovenox GI: protonix Multivit, thiamine, Folic acid Ibuprofen 400mg PO Q6H PRN Plan discussed with Dr Altman Dispo: going for VATS tomorrow 03/[address] Meza. Misael Tate, PGY-1 - Date & Time Date: 04/23/18 Time: 09:00 <Morteza Altman - Last Filed: 04/23/18 18:01> CCU Objective - Vital Signs / Intake & Output Vital Signs (Last 4 hours): Vital Signs Temp Pulse Resp BP Pulse Ox 04/23/18 16:00 87 22 96 04/23/18 15:58 86 25 H 118/64 96 04/23/18 15:56 101.2 F H 87 28 H 118/64 96 04/23/18 15:09 84 23 111/63 96 04/23/18 15:00 84 21 96 04/23/18 14:32 83 24 110/63 96 04/23/18 14:09 82 24 106/60 96 04/23/18 14:00 81 24 96 04/23/18 13:28 105/62 04/23/18 13:09 82 19 105/62 95 04/23/18 13:08 83 23 95 04/23/18 13:00 83 21 95 Intake and Output (Last 8hrs): Intake & Output 04/23/18 04/23/18 04/23/18 06:59 14:59 22:59 Intake Total 2120.2 1584.0 525.4 Output Total 490 919 815 Balance 1630.2 665.0 -289.6 Weight 219 lb 14.4 oz Intake: IV 300 590 Intake, IV Amount 1280.2 654.0 465.4 Medial Port Internal 112 112 28 Jugular Proximal IJ TLC 148.8 148.8 37.2 Proximal TLC 219.4 223.2 50.2 Right Distal Port 800 170 350 Antecubital Tube Feeding 240 240 60 Other 300 100 Output: Urine 490 919 815 Urethral (Peña) 490 919 815 - Medications Active Medications: Active Medications Generic Name Dose Route Start Last Admin Trade Name Freq PRN Reason Stop Dose Admin Albuterol/Ipratropium 3 ml 04/15/18 08:00 04/23/18 07:58 Duoneb 3 Mg/0.5 Mg (3 Ml) Ud INH 3 ml RQ6 JESUS Administration Docusate Sodium 100 mg 04/14/18 18:30 04/23/18 14:29 Colace PO 100 mg TID JESUS Administration Enoxaparin Sodium 100 mg 04/21/18 22:00 04/23/18 10:25 Lovenox SC 100 mg Q12 JESUS Administration Folic Acid 1 mg 04/14/18 10:00 04/23/18 10:11 Folic Acid PO 1 mg DAILY JESUS Administration Furosemide 40 mg 04/23/18 13:00 04/23/18 13:28 Lasix IVP 40 mg Q12H JESUS Administration Propofol 1,000 mg in 100 mls @ 2.79 mls/hr 04/15/18 21:20 04/23/18 14:46 Diprivan IV 45 mcg/kg/min .Q24H PRN 25 mls/hr Agitation Titration Protocol 5 MCG/KG/MIN Meropenem 1 gm/ Sodium 100 mls @ 100 mls/hr 04/16/18 21:00 04/23/18 13:33 Chloride IVPB 100 mls/hr Q8H JESUS Administration Protocol Clindamycin Phosphate 900 mg/ 106 mls @ 100 mls/hr 04/16/18 23:30 04/23/18 16:11 Sodium Chloride IV 100 mls/hr Q8H JESUS Administration Protocol Fentanyl Citrate 2,500 mcg/ 250 mls @ 19.92 mls/hr 04/19/18 22:00 04/23/18 16:16 Sodium Chloride IV Not Given .[id number] JESUS Protocol 2 MCG/KG/HR Vancomycin HCl 1,500 mg/ 500 mls @ 200 mls/hr 04/22/18 03:00 04/23/18 15:51 Sodium Chloride IVPB 200 mls/hr Q12H JESUS Administration Protocol Dexmedetomidine HCl 200 mcg/ 50 mls @ 14.9 mls/hr 04/22/18 15:16 04/23/18 14:35 Sodium Chloride IV 0.56 mcg/kg/hr TITR PRN 14 mls/hr Agitation Administration Protocol 0.6 MCG/KG/HR Gentamicin Sulfate/Sodium Chloride 80 mg in 100 mls @ 100 mls/hr 04/23/18 02:00 04/23/18 11:00 Gentamicin 80mg/100ml Ns IVPB 100 mls/hr Q8H JESUS Administration Protocol Ibuprofen 400 mg 04/19/18 03:31 04/23/18 10:11 Motrin Tab PO 400 mg Q6H PRN Administration fever Lactobacillus Acidophilus 1 cap 04/14/18 18:45 04/23/18 10:25 Bacid Acidophilus PO 1 cap BID JESUS Administration Multivitamins 1 tab 04/14/18 10:00 04/23/18 10:11 Hexavitamin PO 1 tab DAILY JESUS Administration Pantoprazole Sodium 40 mg 04/14/18 10:00 04/23/18 10:15 Protonix Inj IVP 40 mg DAILY JESUS Administration Sennosides 8.6 mg 04/14/18 00:15 04/23/18 10:20 Senokot Tab PO 8.6 mg BID JESUS Administration Thiamine HCl 100 mg 04/14/18 10:00 04/23/18 10:15 Vitamin B1 Tab PO 100 mg DAILY JESUS Administration - Patient Studies Lab Studies: Microbiology Studies 04/21/18 15:00 Blood Culture - Preliminary Blood NO GROWTH AFTER 48 HOURS 04/21/18 17:04 Blood Culture - Preliminary Blood NO GROWTH AFTER 24 HOURS 04/21/18 17:04 Urine Culture - Final Urine,Peña No Growth (<1,000 CFU/ML) Lab Studies 04/23/18 04/23/18 04/23/18 Range/Units 06:11 06:11 05:27 WBC 10.3 D (4.8-10.8) K/uL RBC 3.40 L (4.40-5.90) Mil/uL Hgb 10.1 L (12.0-18.0) g/dL Hct 30.5 L (35.0-51.0) % MCV 89.7 (80.0-94.0) fL MCH 29.6 (27.0-31.0) pg MCHC 33.0 (33.0-37.0) g/dL RDW 14.6 H (11.5-14.5) % Plt Count 464 H (130-400) K/uL MPV 9.3 (7.2-11.7) fL Neut % (Auto) 84.4 H (50.0-75.0) % Lymph % (Auto) 9.4 L (20.0-40.0) % [place] % (Auto) 4.4 (0.0-10.0) % Eos % (Auto) 0.9 (0.0-4.0) % Baso % (Auto) 0.9 (0.0-2.0) % Neut # (Auto) 8.7 H (1.8-7.0) K/uL Lymph # (Auto) 1.0 (1.0-4.3) K/uL [place] # (Auto) 0.5 (0.0-0.8) K/uL Eos # (Auto) 0.1 (0.0-0.7) K/uL Baso # (Auto) 0.1 (0.0-0.2) K/uL Neutrophils % (Manual) 90 H (50-75) % Lymphocytes % (Manual) 8 L (20-40) % Monocytes % (Manual) 2 (0-10) % Platelet Estimate Slightly increased H (NORMAL) Hypochromasia (manual) Slight Puncture Site Rr pCO2 39 (35-45) mm/Hg pO2 86 (80-100) mm/Hg HCO3 26.1 (21-28) mmol/L ABG pH 7.43 (7.35-7.45) ABG Total CO2 27.1 (22-28) mmol/L ABG O2 Saturation 99.7 H (95-98) % ABG Base Excess 1.5 (-2.0-3.0) mmol/L ABG Hemoglobin 9.9 L (11.7-17.4) g/dL ABG Carboxyhemoglobin 2.5 H (0.5-1.5) % POC ABG HHb (Measured) 0.3 (0.0-5.0) % ABG Methemoglobin 0.6 (0.0-3.0) % [place] Test Pos A-a O2 Difference 436.0 mm/Hg Respiratory Index 5.1 Hgb O2 Saturation 96.5 (95.0-98.0) % Vent Mode Prvc Mechanical Rate 18 FiO2 80.0 % Tidal Volume 450 PEEP 8 Sodium 140 (132-148) mmol/L Potassium 3.9 (3.6-5.2) mmol/L Chloride 110 H (98-107) mmol/L Carbon Dioxide 30 (22-30) mmol/L Anion Gap 4 L (10-20) BUN 16 (9-20) mg/dL Creatinine 0.7 L (0.8-1.5) mg/dL Est GFR ( Amer) > 60 Est GFR (Non-Af Amer) > 60 Random Glucose 96 (75-110) mg/dL Calcium 7.7 L (8.6-10.4) mg/dl Phosphorus 4.3 (2.5-4.5) mg/dL Magnesium 2.1 (1.6-2.3) mg/dL Total Bilirubin 0.7 (0.2-1.3) mg/dL AST 77 H D (17-59) U/L ALT 67 (21-72) U/L Alkaline Phosphatase 269 H D (38-126) U/L Total Protein 6.5 (6.3-8.3) g/dL Albumin 2.2 L (3.5-5.0) g/dL Globulin 4.3 H (2.2-3.9) gm/dL Albumin/Globulin Ratio 0.5 L (1.0-2.1) Laboratory Results - last 24 hr 04/23/18 04/23/18 04/23/18 05:27 06:11 06:11 WBC 10.3 D RBC 3.40 L Hgb 10.1 L Hct 30.5 L MCV 89.7 MCH 29.6 MCHC 33.0 RDW 14.6 H Plt Count 464 H MPV 9.3 Neut % (Auto) 84.4 H Lymph % (Auto) 9.4 L [place] % (Auto) 4.4 Eos % (Auto) 0.9 Baso % (Auto) 0.9 Neut # (Auto) 8.7 H Lymph # (Auto) 1.0 [place] # (Auto) 0.5 Eos # (Auto) 0.1 Baso # (Auto) 0.1 Neutrophils % (Manual) 90 H Lymphocytes % (Manual) 8 L Monocytes % (Manual) 2 Platelet Estimate Slightly increased H Hypochromasia (manual) Slight Puncture Site Rr pCO2 39 pO2 86 HCO3 26.1 ABG pH 7.43 ABG Total CO2 27.1 ABG O2 Saturation 99.7 H ABG Base Excess 1.5 ABG Hemoglobin 9.9 L ABG Carboxyhemoglobin 2.5 H POC ABG HHb (Measured) 0.3 ABG Methemoglobin 0.6 [place] Test Pos A-a O2 Difference 436.0 Respiratory Index 5.1 Hgb O2 Saturation 96.5 Vent Mode Prvc Mechanical Rate 18 FiO2 80.0 Tidal Volume 450 PEEP 8 Sodium 140 Potassium 3.9 Chloride 110 H Carbon Dioxide 30 Anion Gap 4 L BUN 16 Creatinine 0.7 L Est GFR ( Amer) > 60 Est GFR (Non-Af Amer) > 60 Random Glucose 96 Calcium 7.7 L Phosphorus 4.3 Magnesium 2.1 Total Bilirubin 0.7 AST 77 H D ALT 67 Alkaline Phosphatase 269 H D Total Protein 6.5 Albumin 2.2 L Globulin 4.3 H Albumin/Globulin Ratio 0.5 L Radiology Impressions: Radiology Impressions Duplex Scan Lower Extremity Artery 04/21/18 13:26 IMPRESSION: Right: No evidence of deep or superficial vein thrombosis of the right lower extremity. Valvular incompetence of the right greater saphenous vein. Left: No evidence of deep or superficial vein thrombosis of the left lower extremity. Normal valve function noted of the left side. Duplex Scan Upper Extremity Artery 04/21/18 13:26 IMPRESSION: Right: No evidence of vein thrombosis of the right upper extremity with excellent venous flow. Normal valve function noted of the right side. Chest X-Ray 04/22/18 19:19 IMPRESSION: Interval right triple-lumen catheter insertion the internal jugular vein approach tip superior vena cava. No pneumothorax appreciated. Endotracheal tube and nasogastric tube appear in satisfactory position. Right sided chest tube tip similar position correlate with its function. Size of the right pleural effusion which appears loculated is similar. Assumed passive compressive atelectasis right lung base with a moderate-large right pleural effusion. Chest X-Ray 04/23/18 05:00 IMPRESSION: No interval change Right triple-lumen catheter insertion the internal jugular vein approach tip superior vena cava. No pneumothorax appreciated. Endotracheal tube and nasogastric tube appear in satisfactory position. Right sided chest tube tip similar position correlate with its function. Size of the right pleural effusion which appears loculated is similar. Assumed passive compressive atelectasis right lung base with a moderate-large right pleural effusion. Critical Care Progress Note - Nutrition Nutrition: Nutrition Category Date Time Status NPO Diet [DIET] Diets 04/16/18 Breakfast Active Assessment/Plan (1) Community acquired pneumonia Current Visit: Yes Status: Acute Attending/Attestation - Attestation I have personally seen and examined this patient.: Yes I have fully participated in the care of the patient.: Yes I have reviewed all pertinent clinical information: Yes Notes (Text): 04/23/18 16:55 I have seen and examined the patient. Medical records, lab studies, and imaging were reviewed by me and a management plan was formulated on multidisciplinary rounds with resident Dr. Tate. I agree with their documented assessment and plan. Patient's pneumonia is not improving, despite the drop in wbc. Scheduled for decortication and debridement tomorrow, thoracic surgery - Dr. Meza. Chest tube still draining, but less. Bronch cultures negative. Continue meropenem, micafungin, clindamycin, gentamicin, and vancomycin. ID - Dr. Spring Critical Care Time 35 minutes. Multi-disciplinary rounds were performed with house staff, nursing, speech therapy, respiratory therapy, pharmacy and nutrition with integrated input from the primary team/attending and other consulting services. The documented time is cumulative and includes review of patient data/exams/labs/chart review and examination of the patient on rounds and throughout the day; time is exclusive of any procedures or teaching time.
--- NOTE | 2018-04-23 15:17 | RAD ---
History follow-up pleural effusion 04/22/2018 FINDINGS: LUNGS: Grossly clear left lung. The homogeneous opacification of the inferior right joao thorax-blends with right lateral pleural probable loculated effusion and thickening. Minimal fluid with or without concomitant subsegmental atelectasis in the right minor fissure suggested. This appearance is similar. Right chest tube insertion right lateral mid hemithorax tip projects paraspinous location a few cm below the rashad. This is similar. Endotracheal tube tip approximately 2 to 2.5 cm cephalad to rashad. PLEURA: Right pleural effusion extensive with loculation inferred. Grossly similar. No pneumothorax seen CARDIOVASCULAR: No aortic atherosclerotic calcification present. Cardiomegaly-similar probable minimal pulmonary venous congestion-similar. right internal jugular vein triple-lumen catheter tip superior vena cava. OSSEOUS STRUCTURES: No significant abnormalities. VISUALIZED UPPER ABDOMEN: NG tube tip near gastric antrum. OTHER FINDINGS: None. IMPRESSION: No interval change Right triple-lumen catheter insertion the internal jugular vein approach tip superior vena cava. No pneumothorax appreciated. Endotracheal tube and nasogastric tube appear in satisfactory position. Right sided chest tube tip similar position correlate with its function. Size of the right pleural effusion which appears loculated is similar. Assumed passive compressive atelectasis right lung base with a moderate-large right pleural effusion.
[2018-04-23] MEDS: Micafungin 100 MG in Sodium Chloride 0.9% 100 ML IV SCH (18:10)
--- NOTE | 2018-04-23 21:06 | CP.PCM.PN ---
Subjective - Date & Time of Evaluation Date of Evaluation: 04/23/18 Time of Evaluation: 18:00 - Subjective Subjective: Medical Attending Note: patient seen and examined. Patient seen at bedside with ICU resident. present at bedside. unable to ROS secondary clinical condition Objective - Vital Signs/Intake and Output Vital Signs (last 24 hours): Temp Pulse Resp BP Pulse Ox 101.2 F H 95 H 32 H 101/55 L 95 04/23/18 15:56 04/23/18 20:09 04/23/18 20:09 04/23/18 20:09 04/23/18 20:09 Intake and Output: 04/23/18 04/24/18 18:59 06:59 Intake Total 2939.2 169.8 Output Total 2544 85 Balance 395.2 84.8 - Medications Medications: Current Medications Albuterol/Ipratropium (Duoneb 3 Mg/0.5 Mg (3 Ml) Ud) 3 ml INH RQ6 [facility] Last Admin: 04/23/18 20:21 Dose: 3 ml Docusate Sodium (Colace) 100 mg PO TID [facility] Last Admin: 04/23/18 17:36 Dose: 100 mg Enoxaparin Sodium (Lovenox) 100 mg SC Q12 [facility] Last Admin: 04/23/18 10:25 Dose: 100 mg Folic Acid (Folic Acid) 1 mg PO DAILY [facility] Last Admin: 04/23/18 10:11 Dose: 1 mg Furosemide (Lasix) 40 mg IVP Q12H [facility] Last Admin: 04/23/18 13:28 Dose: 40 mg Propofol (Diprivan) 1,000 mg in 100 mls @ 2.79 mls/hr IV .Q24H PRN; Protocol PRN Reason: Agitation Last Admin: 04/23/18 17:08 Dose: 45 mcg/kg/min, 25 mls/hr Meropenem 1 gm/ Sodium (Chloride) 100 mls @ 100 mls/hr IVPB Q8H [facility]; Protocol Last Admin: 04/23/18 13:33 Dose: 100 mls/hr Clindamycin Phosphate 900 mg/ (Sodium Chloride) 106 mls @ 100 mls/hr IV Q8H [facility]; Protocol Last Admin: 04/23/18 16:11 Dose: 100 mls/hr Fentanyl Citrate 2,500 mcg/ (Sodium Chloride) 250 mls @ 19.92 mls/hr IV .[id number] [facility]ESUS; Protocol Last Admin: 04/23/18 16:16 Dose: Not Given Vancomycin HCl 1,500 mg/ (Sodium Chloride) 500 mls @ 200 mls/hr IVPB Q12H [facility]; Protocol Last Admin: 04/23/18 15:51 Dose: 200 mls/hr Dexmedetomidine HCl 200 mcg/ (Sodium Chloride) 50 mls @ 14.9 mls/hr IV TITR PRN; Protocol PRN Reason: Agitation Last Admin: 04/23/18 18:03 Dose: 0.56 mcg/kg/hr, 14 mls/hr Gentamicin Sulfate/Sodium Chloride (Gentamicin 80mg/100ml Ns) 80 mg in 100 mls @ 100 mls/hr IVPB Q8H [facility]; Protocol Last Admin: 04/23/18 18:14 Dose: 100 mls/hr Micafungin Sodium 100 mg/ (Sodium Chloride) 100 mls @ 100 mls/hr IV Q24H [facility]; Protocol Last Admin: 04/23/18 18:10 Dose: 100 mls/hr Ibuprofen (Motrin Tab) 400 mg PO Q6H PRN PRN Reason: fever Last Admin: 04/23/18 10:11 Dose: 400 mg Lactobacillus Acidophilus (Bacid Acidophilus) 1 cap PO BID [facility] Last Admin: 04/23/18 17:35 Dose: 1 cap Multivitamins (Hexavitamin) 1 tab PO DAILY [facility] Last Admin: 04/23/18 10:11 Dose: 1 tab Pantoprazole Sodium (Protonix Inj) 40 mg IVP DAILY [facility] Last Admin: 04/23/18 10:15 Dose: 40 mg Sennosides (Senokot Tab) 8.6 mg PO BID [facility] Last Admin: 04/23/18 17:35 Dose: 8.6 mg Thiamine HCl (Vitamin B1 Tab) 100 mg PO DAILY [facility] Last Admin: 04/23/18 10:15 Dose: 100 mg - Labs Labs: 04/23/18 06:11 04/23/18 06:11 PT 13.0 SECONDS (9.7-12.2) H 04/15/18 16:25 INR 1.2 04/15/18 16:25 APTT 35 SECONDS (21-34) H 04/15/18 16:25 - Constitutional Appears: Chronically Ill - Head Exam Head Exam: NORMAL INSPECTION Additional comments: intubated right eye: erythema - Eye Exam Eye Exam: Conjunctival injection (right eye) Additional comments: intubated prevalon boots right sided chest tube roman - ENT Exam ENT Exam: Mucous Membranes Dry - Respiratory Exam Respiratory Exam: Decreased Breath Sounds, Rales, Rhonchi, NORMAL BREATHING PATTERN - Cardiovascular Exam Cardiovascular Exam: REGULAR RHYTHM, +S1, +S2 - GI/Abdominal Exam GI & Abdominal Exam: Soft, Normal Bowel Sounds - Extremities Exam Extremities Exam: Joint Swelling, Pedal Edema Additional comments: prevalon boots b/l - Skin Skin Exam: Normal Color, Warm Assessment and Plan (1) Acute respiratory failure Status: Acute (2) Aspiration pneumonia Status: Acute (3) Delirium tremens Status: Acute (4) Constipation Status: Acute (5) Empyema Status: Acute Attending/Attestation - Attestation I have personally seen and examined this patient.: Yes I have fully participated in the care of the patient.: Yes I have reviewed all pertinent clinical information, including history, physical exam and plan: Yes Notes (Text): Patient continues to spike fever. Patient is going for surgery tomorrow. Patient is on IV antibiotics per infectious disease Patient was recultured repeat blood cultures are negative times 24 hours Patient did complete upper and lower extremity Dopplers which showed cephalic dvts; patient is on therapeutic lovenox held prior to OR 04/24/18. Patient remains intubated but he is awake while on sedation Assessment/Plan 1). Sepsis Secondary to Right Middle and Lower Lobe Pneumonia and Suspected Empyema * Infectious Disease (Dr. Spring) on case * Cardiothoracic Surgery Dr. Meza: Chest tube placed 04/18/18 and pleural fluid culture will have to be followed up * Leukocytosis, fever, pneumonia/empyema * CT chest from Apr 15, 2018. Cardiomegaly. Trace pericardial effusion. Coronary artery calcifications. Extensive consolidation throughout the right hemithorax with relative sparing of the right lung apex. Small loculated right-sided pleural effusion measuring approximately 2.1 cm in maximum depth superinfection is not excluded. Mild left basal bibasilar atelectasis. Left hemithorax. Otherwise grossly clear. Limited visualization of the upper abdomen reveals hepatomegaly. Diffuse hepatic steatosis with 2 more focal hypodense regions favored to represent focal fatty infiltration. * CT chest from Apr 17 was suboptimal. No evidence of central pulmonary emb olus. Interval worsening of airspace consolidation at the right lung contains foci of low-attenuation possible fluid collection since prior study interval worsening of the right-sided multiple likely request for sacral pleural effusion. * CT chest from 04/20/2018 noted for decreased right pleural effusion. Right chest tube. Extensive right lower lobe atelectasis with right middle lobe and left lower lobe segmental atelectasis. Small left pleural effusion. No pneumothorax. Endotracheal tube and nasogastric tube noted. * Suspect possible aspiration due to the history of alcohol use (see below) IV abx: * Azithromycin and Rocephin were discontinued on 04/15/18 * Zosyn 3.375 gm IV Q6H (04/15/18 through 04/16/18) * Tamiflu 75 mg PO 2x/day (04/14/18 through 04/19/18) * Clindamycin 900 mg IV Q8H (04/15/18) * Vancomycin 1.25 gm IV Q12H (04/15/18) dose adjusted to Vancomycin 1500gm IV Q12H (active since 04/21/18) * gentamicin 80mg IV Q12H (active 04/21/18) * Meropenem 1 gm IV Q8H (04/16/18) * Blood Culture 04/13/18: is negative to date * Blood culture 04/21/17: negative. * Pleural fluid (04/18/18): no growth after 3 days * Bronchial Washings: 04/19/18: Normal saphrophytic john paul, fungal culture-prelim * Myocbacterial Culture--Prelim:pending * Procalcitonin: 1.64 2). Respiratory Distress Acute Respiratory Faiilure * Patient was intubated and placed on vent on evening 04/15/18 after he started to have DTs * Currently on Fentanyl, Propofol and Precedex * Remains on drips given low oxygenation status 3). Alcohol Withdrawal DTs * Currently on Fentanyl, Propofol and Precedex 4). Bilateral Perinephric Stranding As seen on CT Abdomen/Pelvis * On exam 04/14/18 and 04/15/18 there was NO CVA tenderness * UA shows NEGATIVE Nitrate, Ketones, and LE * Doubt that this is Pyelonephritis as Urine Culture is negative 5). Alcohol Abuse * Patient revealed 04/14/18 that he drank shots and multiple beers twice a week but told overnight team at time of admission that he did this 5x per week. * Last drink was this past Friday04/10/18 as per patient 6). Hyponatremia (resolved) * Likely SIADH * TSH and T4 are normal * Morning Cortisol normal * Triglycerides normal * Urine Osm was high * Urine Na was 35 7). Tachycardia (resolved) * Could this be secondary to the ongoing fever secondary to the pneumonia? * EKG shows Sinus Tachycardia * Tylenol 650 mg OGT Q4H PRN Fever * Normal sinus at bedside; likely secondary to DTs 8). Elevated LFTs and Hepatic Parenchymal Disease (as seen CT Abdomen) Likely secondary to suspected alcohol abuse * Hepatitis Panel negative * HIV negative * UDS negative * On CT scan noted hepatomegaly * uptrending mildly 9). Hypokalemia * monitor and replete 10). Hypomagnesemia * monitor and replete 11). Constipation * As seen on Obstruction Series * Senokot * Colace 100 mg PO 3x/day * Had bowel movement 04/15/18 * Patient to get an enema today 04/21/18--> had bowel movement 04/22/18 12) Cephalic DVTS * Patient is on therapeutic lovenox 13). Prophylaxis * DVT risk score of 2 based upon Age and diagnosis of Sepsis: lovenox 40mg subqdaily Bilateral SCDs * As patient was intubated 04/15/18, Protonix 40 mg IV 1x/day * Jevity via OGT started at 20 ml/hr with goal of 45 ml/hr * Lactobacillus PO 2x/day Updates: 04/16/18: Mary was at bedside and he she was updated on patient's recent developements and status with the help of ICU residen Dr. Severino Tate 04/17/18: Two Sisters, Cousin, Nephew were at bedside and he she was updated on patient's recent developements and status with the help of ICU residen Dr. Severino Tate 04/18/18: with the help of brother in law Carson (who speaks Setswana) family members included Mary, were udated as to patient status 04/19/18: Two Sisters at the bedside were updated with the help of PATRICIA Moreno who translated Romanian 04/20/18: spoke with and sister at bedside 04/21/18: no family present at bedside 04/22/18: I was present at bedside with cardiothoracic surgeon, ICU resident Janay Martin as well as will need a thoracic surgery explained that patient would need a decortication/VATS planned for this Friday. Given patient's empyema and not improving status. is aware that the surgery carries greater risk and that the and depending on the nature of the surgery will ultimately affect patient's ability to be extubated. She is aware that we hope for good outcomes however she does understand it does carry a high mortality. Dr. Tate at bedside translating on behalf of chronic cardiothoracic surgeon as well. 04/24/17: spoke with at bedside.
[2018-04-24] MEDS: Propofol 10 mg/ml 1,000 MG/100 ML VIAL IV PRN ×3 (01:51→09:56)
[2018-04-24] MEDS: Dexmedetomidine Hydrochloride 200 MCG in Sodium Chloride 0.9% 48 ML IV PRN ×6 (02:05→22:45)
[2018-04-24] MEDS: Albuterol-Ipratrop 3 mg / 0.5 (3 ml) UD INH SCH ×4 (02:10→19:54)
[2018-04-24] MEDS: Gentamicin 80 mg in 0.9% NS 80 MG/100 ML BAG IVPB SCH ×3 (02:21→19:03)
[2018-04-24] MEDS: Meropenem 1 GM in Sodium Chloride 0.9% 100 ML IVPB SCH ×3 (04:40→20:33)
[2018-04-24 05:36] LABS: ABG ALLEN TEST POS; ARTERIAL BLOOD GAS HCO3 29.3 mmol/L (21-28); ARTERIAL BLOOD GAS HEMOGLOBIN 10.4 g/dL (11.7-17.4); ARTERIAL BLOOD GAS O2 SAT 94.1 % (95-98); ARTERIAL BLOOD GAS PCO2 48 mm/Hg (35-45); ARTERIAL BLOOD GAS PH 7.42 (7.35-7.45); ARTERIAL BLOOD GAS PO2 58 mm/Hg (80-100); ARTERIAL BLOOD GAS TCO2 32.6 mmol/L (22-28)
[2018-04-24] MEDS ORDERED: BUPIVACAINE 0.125%/0.9% NACL 600 ML IJ ONE (06:21)
[2018-04-24 06:32] LABS: BASO # 0.2 K/uL (0.0-0.2); BASO % 1.9 % (0.0-2.0); EOS % 0.3 % (0.0-4.0); HEMOGLOBIN 9.8 g/dL (12.0-18.0); LYMPH # 0.8 K/uL (1.0-4.3); LYMPH % 6.4 % (20.0-40.0); MEAN CELL VOLUME 88.7 fL (80.0-94.0); MEAN CORPUSCULAR HEMOGLOBIN 29.7 pg (27.0-31.0); MEAN CORPUSCULAR HGB CONC 33.4 g/dL (33.0-37.0); MEAN PLATELET VOLUME 9.6 fL (7.2-11.7); MONO # 0.6 K/uL (0.0-0.8); MONO % 4.8 % (0.0-10.0); NEUT # 11.2 K/uL (1.8-7.0); NEUT % 86.6 % (50.0-75.0); PLATELET COUNT 469 K/uL (130-400); RBC 3.31 Mil/uL (4.40-5.90); RED CELL DISTRIBUTION WIDTH 14.2 % (11.5-14.5)
[2018-04-24 06:51] LABS: ALB/GLOB RATIO 0.5 (1.0-2.1); ALBUMIN 2.4 g/dL (3.5-5.0); ALT/SGPT 57 U/L (21-72); AST/SGOT 84 U/L (17-59); BLOOD UREA NITROGEN 12 mg/dL (9-20); CALCIUM 7.8 mg/dl (8.6-10.4); GFR NON-AFRICAN AMERICAN > 60
[2018-04-24 06:52] LABS: INR 1.3; PROTHROMBIN TIME 13.7 SECONDS (9.7-12.2)
[2018-04-24 08:20] LABS: LYMPHOCYTE 1 % (20-40); MONOCYTE 2 % (0-10); NEUTROPHIL 97 % (50-75); TOTAL CELLS COUNTED 100
[2018-04-24 08:21] LABS: PLATELET ESTIMATE SLIGHTLY INCREASED (NORMAL)
[2018-04-24] MEDS ORDERED: Bupivacaine 0.25% 20 ML INJ IJ ONE (10:59)
[2018-04-24] MEDS ORDERED: Lidocaine Hydrochloride 0 ML INJ ONE (10:59)
[2018-04-24] MEDS ORDERED: Bupivacaine 0.5%/Epi 1:200,000 (10 ML SOL) ONE (11:00)
--- NOTE | 2018-04-24 11:15 | RAD ---
Date of service: 04/24/2018 HISTORY: ff up/ vent COMPARISON: 04/23/2018 FINDINGS: LUNGS: No definite infiltrate. Opacity at right base due to pleural effusion and possibly due to elevated right hemidiaphragm. Cannot exclude consolidation at right base. PLEURA: Moderate right pleural effusion. No left pleural effusion. No pneumothorax. Right chest tube grossly unchanged compared to prior CARDIOVASCULAR: Normal heart size. Endotracheal tube unchanged. Right IJ central venous catheter unchanged. Nasogastric tube extends to upper abdomen. No pulmonary vascular congestion. No atherosclerotic calcification of the thoracic aorta. OSSEOUS STRUCTURES: No significant abnormalities. VISUALIZED UPPER ABDOMEN: Normal. OTHER FINDINGS: None. IMPRESSION: Right pleural effusion. Right chest tube. No pneumothorax. Unchanged from prior. ETT, NG tube and right IJ central venous catheter unchanged.
[2018-04-24] MEDS ORDERED: Bupivacaine HCl 0.5% PF (10 ml) Inj ONE (12:10)
[2018-04-24] MEDS ORDERED: Midazolam 2 MG/2 ML VIAL ONE (12:30)
[2018-04-24] MEDS: Lactobacillus Acidophilus 500 MU Cap PO SCH ×2 (12:50→17:00)
--- NOTE | 2018-04-24 12:55 | CP.CCUPN ---
CCU Subjective - Physician Review Subjective (Free Text): PGY-[address] Altman Service Patient is seen and examined at bedside. Continues to be intubated and sedated, but arousable upon stimulation. no acute events overnight as per nurse. Planned for cardiothoracic surgery this morning. ROS unattainable due to patient's condition. 04/24/18 14:57 Critical Care Time Spent (in minutes): 45 CCU Objective - Vital Signs / Intake & Output Vital Signs (Last 4 hours): Vital Signs Pulse Resp BP Pulse Ox 04/24/18 11:09 77 16 123/67 100 04/24/18 11:00 78 16 99 04/24/18 10:09 81 23 128/72 98 04/24/18 10:00 86 18 90 L 04/24/18 09:11 84 16 118/49 L 99 04/24/18 09:00 80 23 100 Intake and Output (Last 8hrs): Intake & Output 04/23/18 04/24/18 04/24/18 22:59 06:59 14:59 Intake Total 1947.5 1900.8 643.2 Output Total 1829 1909 775 Balance 117.5 -9.2 -131.8 Weight 216 lb Intake: IV 260 550 150 Intake, IV Amount 1447.5 1110.8 493.2 Left Forearm 300 650 Medial Port Internal 112 112 70 Jugular Proximal IJ TLC 148.8 148.8 98.2 Proximal TLC 186.7 200 125 Right Distal Port 700 Antecubital Right Distal Port 200 Internal Jugular Tube Feeding 240 240 Output: Chest Tube Drainage 40 Right Anterior Chest 40 Gastric Amount 300 Stomach 300 Urine 1829 1869 475 Urethral (Peña) 1829 1869 475 - Physical Exam Head: Positive for: Atraumatic, Normocephalic Pupils: Positive for: PERRL Extroacular Muscles: Positive for: EOMI Conjunctiva: Positive for: Normal Neck: Positive for: Normal Range of Motion Respiratory/Chest: Positive for: Decreased Breath Sounds (right middle and lower lobes ), Other (intubated and sedated ). Negative for: Respiratory Distress, Accessory Muscle Use Cardiovascular: Positive for: Regular Rate and Rhythm, Normal S1, S2 Abdomen: Positive for: Distention, Normal Bowel Sounds. Negative for: Tenderness Upper Extremity: Positive for: Normal Inspection. Negative for: Cyanosis, Edema Lower Extremity: Positive for: Normal Inspection. Negative for: Edema Neurological: Positive for: Other (unable to assess due to pts condition ) Skin: Positive for: Warm, Dry, Normal Color Psychiatric: Positive for: Other (sedated, not awake or oriented, opens eyes). Negative for: Alert, Oriented x 3 - Medications Active Medications: Active Medications Generic Name Dose Route Start Last Admin Trade Name Freq PRN Reason Stop Dose Admin Albuterol/Ipratropium 3 ml 04/15/18 08:00 04/24/18 08:43 Duoneb 3 Mg/0.5 Mg (3 Ml) Ud INH 3 ml RQ6 JESUS Administration Docusate Sodium 100 mg 04/14/18 18:30 04/24/18 12:49 Colace PO Not Given TID JESUS Enoxaparin Sodium 100 mg 04/21/18 22:00 04/23/18 10:25 Lovenox SC 100 mg Q12 JESUS Administration Folic Acid 1 mg 04/14/18 10:00 04/23/18 10:11 Folic Acid PO 1 mg DAILY JESUS Administration Furosemide 40 mg 04/23/18 13:00 04/24/18 01:37 Lasix IVP 40 mg Q12H JESUS Administration Propofol 1,000 mg in 100 mls @ 2.79 mls/hr 04/15/18 21:20 04/24/18 09:56 Diprivan IV 45 mcg/kg/min .Q24H PRN 25 mls/hr Agitation Administration Protocol 5 MCG/KG/MIN Meropenem 1 gm/ Sodium 100 mls @ 100 mls/hr 04/16/18 21:00 04/24/18 04:40 Chloride IVPB 100 mls/hr Q8H JESUS Administration Protocol Clindamycin Phosphate 900 mg/ 106 mls @ 100 mls/hr 04/16/18 23:30 04/24/18 07:42 Sodium Chloride IV 100 mls/hr Q8H JESUS Administration Protocol Fentanyl Citrate 2,500 mcg/ 250 mls @ 19.92 mls/hr 04/19/18 22:00 04/24/18 09:48 Sodium Chloride IV 2 mcg/kg/hr .[id number] JESUS 19.92 mls/hr Administration Protocol 2 MCG/KG/HR Vancomycin HCl 1,500 mg/ 500 mls @ 200 mls/hr 04/22/18 03:00 04/24/18 02:40 Sodium Chloride IVPB 200 mls/hr Q12H JESUS Administration Protocol Dexmedetomidine HCl 200 mcg/ 50 mls @ 14.9 mls/hr 04/22/18 15:16 04/24/18 09:51 Sodium Chloride IV 0.56 mcg/kg/hr TITR PRN 14 mls/hr Agitation Administration Protocol 0.6 MCG/KG/HR Gentamicin Sulfate/Sodium Chloride 80 mg in 100 mls @ 100 mls/hr 04/23/18 02:00 04/24/18 09:55 Gentamicin 80mg/100ml Ns IVPB 100 mls/hr Q8H JESUS Administration Protocol Micafungin Sodium 100 mg/ 100 mls @ 100 mls/hr 04/23/18 18:30 04/23/18 18:10 Sodium Chloride IV 100 mls/hr Q24H JESUS Administration Protocol BUPIVACAINE 0.125%/0.9% NACL 600 mls @ 4 mls/hr 04/24/18 06:21 Bupivacaine-Ns 0.125% On-Q Licensed Prosthetist/Orthotist IJ 04/30/18 12:20 ONCE ONE Ibuprofen 400 mg 04/19/18 03:31 04/23/18 10:11 Motrin Tab PO 400 mg Q6H PRN Administration fever Lactobacillus Acidophilus 1 cap 04/14/18 18:45 04/24/18 12:50 Bacid Acidophilus PO Not Given BID JESUS Multivitamins 1 tab 04/14/18 10:00 04/23/18 10:11 Hexavitamin PO 1 tab DAILY JESUS Administration Pantoprazole Sodium 40 mg 04/14/18 10:00 04/23/18 10:15 Protonix Inj IVP 40 mg DAILY JESUS Administration Sennosides 8.6 mg 04/14/18 00:15 04/24/18 12:50 Senokot Tab PO Not Given BID JESUS Thiamine HCl 100 mg 04/14/18 10:00 04/23/18 10:15 Vitamin B1 Tab PO 100 mg DAILY JESUS Administration - Patient Studies Lab Studies: Microbiology Studies 04/21/18 17:04 Blood Culture - Preliminary Blood NO GROWTH AFTER 48 HOURS 04/21/18 15:00 Blood Culture - Preliminary Blood NO GROWTH AFTER 48 HOURS Lab Studies 04/24/18 04/24/18 04/24/18 Range/Units 08:25 06:26 06:26 WBC 13.0 H (4.8-10.8) K/uL RBC 3.31 L (4.40-5.90) Mil/uL Hgb 9.8 L (12.0-18.0) g/dL Hct 29.4 L (35.0-51.0) % MCV 88.7 (80.0-94.0) fL MCH 29.7 (27.0-31.0) pg MCHC 33.4 (33.0-37.0) g/dL RDW 14.2 (11.5-14.5) % Plt Count 469 H (130-400) K/uL MPV 9.6 (7.2-11.7) fL Neut % (Auto) 86.6 H (50.0-75.0) % Lymph % (Auto) 6.4 L (20.0-40.0) % [place] % (Auto) 4.8 (0.0-10.0) % Eos % (Auto) 0.3 (0.0-4.0) % Baso % (Auto) 1.9 (0.0-2.0) % Neut # (Auto) 11.2 H (1.8-7.0) K/uL Lymph # (Auto) 0.8 L (1.0-4.3) K/uL [place] # (Auto) 0.6 (0.0-0.8) K/uL Eos # (Auto) 0.0 (0.0-0.7) K/uL Baso # (Auto) 0.2 (0.0-0.2) K/uL Neutrophils % (Manual) 97 H (50-75) % Lymphocytes % (Manual) 1 L (20-40) % Monocytes % (Manual) 2 (0-10) % Platelet Estimate Slightly increased H (NORMAL) RBC Morphology Normal PT 13.7 H (9.7-12.2) SECONDS INR 1.3 APTT 42 H (21-34) SECONDS Puncture Site pCO2 (35-45) mm/Hg pO2 (80-100) mm/Hg HCO3 (21-28) mmol/L ABG pH (7.35-7.45) ABG Total CO2 (22-28) mmol/L ABG O2 Saturation (95-98) % ABG Base Excess (-2.0-3.0) mmol/L ABG Hemoglobin (11.7-17.4) g/dL ABG Carboxyhemoglobin (0.5-1.5) % POC ABG HHb (Measured) (0.0-5.0) % ABG Methemoglobin (0.0-3.0) % [place] Test A-a O2 Difference mm/Hg Respiratory Index Hgb O2 Saturation (95.0-98.0) % Vent Mode Mechanical Rate FiO2 % Tidal Volume PEEP Sodium (132-148) mmol/L Potassium (3.6-5.2) mmol/L Chloride (98-107) mmol/L Carbon Dioxide (22-30) mmol/L Anion Gap (10-20) BUN (9-20) mg/dL Creatinine (0.8-1.5) mg/dL Est GFR ( Amer) Est GFR (Non-Af Amer) Random Glucose (75-110) mg/dL Calcium (8.6-10.4) mg/dl Phosphorus (2.5-4.5) mg/dL Magnesium (1.6-2.3) mg/dL Total Bilirubin (0.2-1.3) mg/dL AST (17-59) U/L ALT (21-72) U/L Alkaline Phosphatase (38-126) U/L Total Protein (6.3-8.3) g/dL Albumin (3.5-5.0) g/dL Globulin (2.2-3.9) gm/dL Albumin/Globulin Ratio (1.0-2.1) Blood Type O POSITIVE Antibody Screen Negative 04/24/18 04/24/18 Range/Units 06:24 05:27 WBC (4.8-10.8) K/uL RBC (4.40-5.90) Mil/uL Hgb (12.0-18.0) g/dL Hct (35.0-51.0) % MCV (80.0-94.0) fL MCH (27.0-31.0) pg MCHC (33.0-37.0) g/dL RDW (11.5-14.5) % Plt Count (130-400) K/uL MPV (7.2-11.7) fL Neut % (Auto) (50.0-75.0) % Lymph % (Auto) (20.0-40.0) % [place] % (Auto) (0.0-10.0) % Eos % (Auto) (0.0-4.0) % Baso % (Auto) (0.0-2.0) % Neut # (Auto) (1.8-7.0) K/uL Lymph # (Auto) (1.0-4.3) K/uL [place] # (Auto) (0.0-0.8) K/uL Eos # (Auto) (0.0-0.7) K/uL Baso # (Auto) (0.0-0.2) K/uL Neutrophils % (Manual) (50-75) % Lymphocytes % (Manual) (20-40) % Monocytes % (Manual) (0-10) % Platelet Estimate (NORMAL) RBC Morphology PT (9.7-12.2) SECONDS INR APTT (21-34) SECONDS Puncture Site Rr pCO2 48 H (35-45) mm/Hg pO2 58 L (80-100) mm/Hg HCO3 29.3 H (21-28) mmol/L ABG pH 7.42 (7.35-7.45) ABG Total CO2 32.6 H (22-28) mmol/L ABG O2 Saturation 94.1 L (95-98) % ABG Base Excess 5.8 H (-2.0-3.0) mmol/L ABG Hemoglobin 10.4 L (11.7-17.4) g/dL ABG Carboxyhemoglobin 2.4 H (0.5-1.5) % POC ABG HHb (Measured) 5.7 H (0.0-5.0) % ABG Methemoglobin 0.7 (0.0-3.0) % [place] Test Pos A-a O2 Difference 381.0 mm/Hg Respiratory Index 6.6 Hgb O2 Saturation 91.2 L (95.0-98.0) % Vent Mode Prvc Mechanical Rate 18 FiO2 70.0 % Tidal Volume 450 PEEP 8 Sodium 139 (132-148) mmol/L Potassium 3.7 (3.6-5.2) mmol/L Chloride 103 (98-107) mmol/L Carbon Dioxide 32 H (22-30) mmol/L Anion Gap 7 L (10-20) BUN 12 (9-20) mg/dL Creatinine 0.7 L (0.8-1.5) mg/dL Est GFR ( Amer) > 60 Est GFR (Non-Af Amer) > 60 Random Glucose 92 (75-110) mg/dL Calcium 7.8 L (8.6-10.4) mg/dl Phosphorus 5.7 H (2.5-4.5) mg/dL Magnesium 1.9 (1.6-2.3) mg/dL Total Bilirubin 0.9 (0.2-1.3) mg/dL AST 84 H (17-59) U/L ALT 57 (21-72) U/L Alkaline Phosphatase 270 H (38-126) U/L Total Protein 7.0 (6.3-8.3) g/dL Albumin 2.4 L (3.5-5.0) g/dL Globulin 4.6 H (2.2-3.9) gm/dL Albumin/Globulin Ratio 0.5 L (1.0-2.1) Blood Type Antibody Screen Laboratory Results - last 24 hr 04/24/18 04/24/18 04/24/18 05:27 06:24 06:26 WBC 13.0 H RBC 3.31 L Hgb 9.8 L Hct 29.4 L MCV 88.7 MCH 29.7 MCHC 33.4 RDW 14.2 Plt Count 469 H MPV 9.6 Neut % (Auto) 86.6 H Lymph % (Auto) 6.4 L [place] % (Auto) 4.8 Eos % (Auto) 0.3 Baso % (Auto) 1.9 Neut # (Auto) 11.2 H Lymph # (Auto) 0.8 L [place] # (Auto) 0.6 Eos # (Auto) 0.0 Baso # (Auto) 0.2 Neutrophils % (Manual) 97 H Lymphocytes % (Manual) 1 L Monocytes % (Manual) 2 Platelet Estimate Slightly increased H RBC Morphology Normal PT INR APTT Puncture Site Rr pCO2 48 H pO2 58 L HCO3 29.3 H ABG pH 7.42 ABG Total CO2 32.6 H ABG O2 Saturation 94.1 L ABG Base Excess 5.8 H ABG Hemoglobin 10.4 L ABG Carboxyhemoglobin 2.4 H POC ABG HHb (Measured) 5.7 H ABG Methemoglobin 0.7 [place] Test Pos A-a O2 Difference 381.0 Respiratory Index 6.6 Hgb O2 Saturation 91.2 L Vent Mode Prvc Mechanical Rate 18 FiO2 70.0 Tidal Volume 450 PEEP 8 Sodium 139 Potassium 3.7 Chloride 103 Carbon Dioxide 32 H Anion Gap 7 L BUN 12 Creatinine 0.7 L Est GFR ( Amer) > 60 Est GFR (Non-Af Amer) > 60 Random Glucose 92 Calcium 7.8 L Phosphorus 5.7 H Magnesium 1.9 Total Bilirubin 0.9 AST 84 H ALT 57 Alkaline Phosphatase 270 H Total Protein 7.0 Albumin 2.4 L Globulin 4.6 H Albumin/Globulin Ratio 0.5 L Blood Type Antibody Screen 04/24/18 04/24/18 06:26 08:25 WBC RBC Hgb Hct MCV MCH MCHC RDW Plt Count MPV Neut % (Auto) Lymph % (Auto) [place] % (Auto) Eos % (Auto) Baso % (Auto) Neut # (Auto) Lymph # (Auto) [place] # (Auto) Eos # (Auto) Baso # (Auto) Neutrophils % (Manual) Lymphocytes % (Manual) Monocytes % (Manual) Platelet Estimate RBC Morphology PT 13.7 H INR 1.3 APTT 42 H Puncture Site pCO2 pO2 HCO3 ABG pH ABG Total CO2 ABG O2 Saturation ABG Base Excess ABG Hemoglobin ABG Carboxyhemoglobin POC ABG HHb (Measured) ABG Methemoglobin [place] Test A-a O2 Difference Respiratory Index Hgb O2 Saturation Vent Mode Mechanical Rate FiO2 Tidal Volume PEEP Sodium Potassium Chloride Carbon Dioxide Anion Gap BUN Creatinine Est GFR ( Amer) Est GFR (Non-Af Amer) Random Glucose Calcium Phosphorus Magnesium Total Bilirubin AST ALT Alkaline Phosphatase Total Protein Albumin Globulin Albumin/Globulin Ratio Blood Type O POSITIVE Antibody Screen Negative Radiology Impressions: Radiology Impressions Duplex Scan Lower Extremity Artery 04/21/18 13:26 IMPRESSION: Right: No evidence of deep or superficial vein thrombosis of the right lower extremity. Valvular incompetence of the right greater saphenous vein. Left: No evidence of deep or superficial vein thrombosis of the left lower extremity. Normal valve function noted of the left side. Duplex Scan Upper Extremity Artery 04/21/18 13:26 IMPRESSION: Right: No evidence of vein thrombosis of the right upper extremity with excellent venous flow. Normal valve function noted of the right side. Chest X-Ray 04/23/18 05:00 IMPRESSION: No interval change Right triple-lumen catheter insertion the internal jugular vein approach tip superior vena cava. No pneumothorax appreciated. Endotracheal tube and nasogastric tube appear in satisfactory position. Right sided chest tube tip similar position correlate with its function. Size of the right pleural effusion which appears loculated is similar. Assumed passive compressive atelectasis right lung base with a moderate-large right pleural effusion. Chest X-Ray 04/24/18 06:33 IMPRESSION: Right pleural effusion. Right chest tube. No pneumothorax. Unchanged from prior. ETT, NG tube and right IJ central venous catheter unchanged. Critical Care Progress Note - Ventilator Checklist Head of Bed 30 Degrees: Yes Daily Sedation Vacation: Yes Daily Assessment of Readiness to Wean: Yes Daily Spontaneous Breathing Trial: Yes PUD Prophalyxis: Yes DVT Prophylaxis: Yes Oral Care with Chlorhexidine Gluconate {CHG}: Yes - Vent Settings MODE:: PRVC TIDAL VOLUME:: 400 RESP RATE:: 14 FIO2:: 8 PEEP:: 60 - Extremities/Vascular Does the Patient have a Central Venous Catheter?: Yes Insertion Site: Internal Jugular Vein Does the Patient need a Central Venous Catheter?: Yes Does the Patient have a Peña Catheter?: Yes Does the Patient need a Peña Catheter?: Yes - Prophylaxis GI Prophylaxis GI: PPI - Nutrition Nutrition: Nutrition Category Date Time Status NPO Diet [DIET] Diets 04/16/18 Breakfast Active Assessment/Plan - Assessment and Plan (Free Text) Plan: 43 year old male with no pmhx presenting to ED with RLQ abdominal pain, fever and chills on 04/14, constipated x 3 days, code sepsis, elevated WBC, bandemia, elevated lactate, CT shows Rt lung consolidation, most likely due to aspiration PNA vs CA PNA. thoracentesis 02/13 removed 1.2 L of empyema, 02/13 intubated for worsening respiratory failure, hypoxia and DT, sedated with propofol, Precedex, fentanyl drip, chest tube placed on 04/18 and EET replaced for thick purulent material observed, bronchial washing on 04/19. 04/20 positive for DVT on b/l cephalic veins, TLC placed on 04/20. Cardiothoracic surgery planning on VATS /decortication today. Neuro alcohol withdrawal syndrome with DT on 04/15 intubated - agitatated yesterday afternoon precedex, propofol for DC and continue fentanyl Pulm hypoxic respiratory failure secondary to Community acquired PNA vs aspiration PNA with empyema. continue to be intubated, PRVC 14/400/60/8 CT Chest - decreased right pleural effusion, extensive right lower lobe atelectasis with right middle lobe and left lower lobe subsegmental atelectasis. Small left pleural effusion. No pneumothorax. Chest xray this am - Right pleural effusion. Right chest tube. No pneumothorax, unchanged from prior, ETT, NG tube and right IJ central venous catheter unchanged. Cardio thoracic sx consult - Dr Meza - decortication sx planned for today - will follow up Dr Meza's recs post op Cardio HR and BP wnl CTA - no evidence of PE Doppler - abnormal findings b/l cephalic veins TLC placed on right IJ to prevent using lines in b/l upper ext Lovenox 100mg BID held GI Tube feedings Jevity initial rate @ 20, increase 20, goal at 45 - Held for surgery this am NPO cont colace, senokot Renal monitor urine output renal function wnl - continue to monitor Lasix 40mg Q12H ID today WBC 13 continue clinda, genta meropenem and vanco Vanco through - 9.0 Pleural fluid - no growth normal saprophytic john paul from bronchial washings Dr Spring - ID follow up recs HIV, Hep, atypicals - negative PPX DVT: lovenox GI: protonix Multivit, thiamine, Folic acid Ibuprofen 400mg PO Q6H PRN Plan discussed with Dr Anupama Tate, PGY-1 - Date & Time Date: 04/24/18 Time: 08:00
[2018-04-24] MEDS ORDERED: Calcium Gluconate 4.65 mEq/10 ml Inj ONE (14:41)
[2018-04-24] MEDS ORDERED: Bacitracin Ointment 30 GM TUBE ONE (15:08)
[2018-04-24] MEDS ORDERED: Rocuronium 10 mg/ml (5 ml) ONE ×3 (15:32→15:47)
[2018-04-24 16:20] LABS: MONO # 0.9 K/uL (0.0-0.8)
[2018-04-24 16:27] LABS: BASO # 0.2 K/uL (0.0-0.2); BASO % 0.9 % (0.0-2.0); EOS % 0.1 % (0.0-4.0); HEMOGLOBIN 11.3 g/dL (12.0-18.0); LYMPH # 0.5 K/uL (1.0-4.3); LYMPH % 2.8 % (20.0-40.0); MEAN CELL VOLUME 89.8 fL (80.0-94.0); MEAN CORPUSCULAR HEMOGLOBIN 29.2 pg (27.0-31.0); MEAN CORPUSCULAR HGB CONC 32.5 g/dL (33.0-37.0); MEAN PLATELET VOLUME 8.8 fL (7.2-11.7); NEUT % 91.2 % (50.0-75.0); PLATELET COUNT 578 K/uL (130-400); RBC 3.86 Mil/uL (4.40-5.90); RED CELL DISTRIBUTION WIDTH 14.4 % (11.5-14.5); WHITE BLOOD COUNT 18.6 K/uL (4.8-10.8)
--- NOTE | 2018-04-24 16:36 | RAD ---
Date of service: 04/24/2018 HISTORY: s/p decortication sx COMPARISON: 04/24/2018 at 6:58 a.m. FINDINGS: LUNGS: Extensive opacity throughout the lower 2/3 of the right lung, unchanged. PLEURA: Probable moderate right pleural effusion. Trace pneumothorax laterally. Two right chest tubes are now present. No left pleural effusion or pneumothorax. CARDIOVASCULAR: No aortic atherosclerotic calcification present. Normal cardiac size. Endotracheal tube unchanged. Right IJ central venous catheter unchanged. Nasogastric tube extends to left upper quadrant of abdomen. OSSEOUS STRUCTURES: No significant abnormalities. VISUALIZED UPPER ABDOMEN: Normal. OTHER FINDINGS: None. IMPRESSION: Two right chest tubes. Trace right pneumothorax. Probable moderate right pleural effusion. Lines and tubes unchanged
[2018-04-24] MEDS ORDERED: Lactated Ringer's 1,000 ML IV ONE (16:52)
[2018-04-24] MEDS: Multiple Vitamins Tab PO SCH (17:00)
[2018-04-24 17:43] LABS: ABG ALLEN TEST POS; ARTERIAL BLOOD GAS HCO3 24.7 mmol/L (21-28); ARTERIAL BLOOD GAS O2 SAT 97.5 % (95-98); ARTERIAL BLOOD GAS PCO2 41 mm/Hg (35-45); ARTERIAL BLOOD GAS PH 7.39 (7.35-7.45); ARTERIAL BLOOD GAS PO2 75 mm/Hg (80-100); ARTERIAL BLOOD GAS TCO2 26.1 mmol/L (22-28)
[2018-04-24 18:00] LABS: BANDS 13 % (0-2); LYMPHOCYTE 3 % (20-40); MONOCYTE 6 % (0-10); NEUTROPHIL 78 % (50-75); TOTAL CELLS COUNTED 100
[2018-04-24 18:01] LABS: HYPOCHROMIC SLIGHT; MICROCYTOSIS SLIGHT; PLATELET ESTIMATE NORMAL (NORMAL)
[2018-04-24 18:02] LABS: LARGE PLATELETS PRESENT
[2018-04-24 19:14] LABS: BODY FLUID TYPE PLEURAL
[2018-04-24] MEDS: Micafungin 100 MG in Sodium Chloride 0.9% 100 ML IV SCH (19:36)
[2018-04-24 20:06] LABS: BF GROSS APPEARANCE BLOODY (CLEAR)
[2018-04-24 20:24] LABS: BODY FLUID MONO/MACROPHAGE 8 % (0-0); BODY FLUID TOTAL COUNT 100 (0-0)
--- NOTE | 2018-04-24 20:39 | CP.PCM.PN ---
Subjective - Date & Time of Evaluation Date of Evaluation: 04/24/18 Time of Evaluation: 19:00 - Subjective Subjective: Medical Attending Note: Patient seen and examined at bedside. Patient seen postoperative in the ICU. Patient is awake and alert. Patient indicating he is in pain the chest tube site/surgery site and he is in awareness of the endotracheal tube. I have spoken with his nurse to increase his dose of Fentanyl drip given his postoperative p ain. Objective - Vital Signs/Intake and Output Vital Signs (last 24 hours): Temp Pulse Resp BP Pulse Ox 99.2 F 100 H 24 108/61 97 04/24/18 19:03 04/24/18 20:11 04/24/18 20:11 04/24/18 20:11 04/24/18 20:11 Intake and Output: 04/24/18 04/25/18 18:59 06:59 Intake Total 3028.3 333 Output Total 1865 Balance 1163.3 333 - Medications Medications: Current Medications Albuterol/Ipratropium (Duoneb 3 Mg/0.5 Mg (3 Ml) Ud) 3 ml INH RQ6 [facility] Last Admin: 04/24/18 19:54 Dose: 3 ml Docusate Sodium (Colace) 100 mg PO TID [facility] Last Admin: 04/24/18 19:34 Dose: Not Given Enoxaparin Sodium (Lovenox) 100 mg SC Q12 [facility] Last Admin: 04/23/18 10:25 Dose: 100 mg Folic Acid (Folic Acid) 1 mg PO DAILY [facility] Last Admin: 04/24/18 17:00 Dose: 1 mg Furosemide (Lasix) 40 mg IVP Q12H [facility] Last Admin: 04/24/18 17:18 Dose: Not Given Meropenem 1 gm/ Sodium (Chloride) 100 mls @ 100 mls/hr IVPB Q8H [facility]; Protocol Last Admin: 04/24/18 20:33 Dose: 100 mls/hr Clindamycin Phosphate 900 mg/ (Sodium Chloride) 106 mls @ 100 mls/hr IV Q8H [facility] ; Protocol Last Admin: 04/24/18 16:35 Dose: 100 mls/hr Fentanyl Citrate 2,500 mcg/ (Sodium Chloride) 250 mls @ 19.92 mls/hr IV .[id number] [facility]; Protocol Last Titration: 04/24/18 20:30 Dose: 3.71 mcg/kg/hr, 37 mls/hr Vancomycin HCl 1,500 mg/ (Sodium Chloride) 500 mls @ 200 mls/hr IVPB Q12H [facility]; Protocol Last Admin: 04/24/18 17:16 Dose: 200 mls/hr Dexmedetomidine HCl 200 mcg/ (Sodium Chloride) 50 mls @ 14.9 mls/hr IV TITR PRN; Protocol PRN Reason: Agitation Last Admin: 04/24/18 20:27 Dose: 1 mcg/kg/hr, 24.83 mls/hr Gentamicin Sulfate/Sodium Chloride (Gentamicin 80mg/100ml Ns) 80 mg in 100 mls @ 100 mls/hr IVPB Q8H [facility]; Protocol Last Admin: 04/24/18 19:03 Dose: 100 mls/hr Micafungin Sodium 100 mg/ (Sodium Chloride) 100 mls @ 100 mls/hr IV Q24H [facility]; Protocol Last Admin: 04/24/18 19:36 Dose: 100 mls/hr BUPIVACAINE 0.125%/0.9% NACL (Bupivacaine-Ns 0.125% On-Q Chipper Feeder) 600 mls @ 4 mls/hr IJ ONCE ONE Stop: 04/30/18 12:20 Ibuprofen (Motrin Tab) 400 mg PO Q6H PRN PRN Reason: fever Last Admin: 04/24/18 16:59 Dose: 400 mg Lactobacillus Acidophilus (Bacid Acidophilus) 1 cap PO BID [facility] Last Admin: 04/24/18 17:00 Dose: 1 cap Multivitamins (Hexavitamin) 1 tab PO DAILY [facility] Last Admin: 04/24/18 17:00 Dose: 1 tab Pantoprazole Sodium (Protonix Inj) 40 mg IVP DAILY [facility] Last Admin: 04/24/18 17:01 Dose: 40 mg Sennosides (Senokot Tab) 8.6 mg PO BID [facility] Last Admin: 04/24/18 17:00 Dose: 8.6 mg Thiamine HCl (Vitamin B1 Tab) 100 mg PO DAILY [facility] Last Admin: 04/24/18 17:00 Dose: 100 mg - Labs Labs: 04/24/18 16:12 04/24/18 06:24 PT 13.7 SECONDS (9.7-12.2) H 04/24/18 06:26 INR 1.3 04/24/18 06:26 APTT 42 SECONDS (21-34) H 04/24/18 06:26 - Constitutional Appears: Combative, Agitated, Chronically Ill - Head Exam Head Exam: NORMAL INSPECTION Additional comments: intubated mittens prevalon boots roman 2 chest tubes - Eye Exam Eye Exam: Conjunctival injection (right eye), EOMI - Respiratory Exam Respiratory Exam: Decreased Breath Sounds, Rales, Rhonchi, NORMAL BREATHING PATTERN - Cardiovascular Exam Cardiovascular Exam: Tachycardia, +S1 - GI/Abdominal Exam GI & Abdominal Exam: Soft. absent: Distended, Guarding, Rigid, Tenderness, Normal Bowel Sounds, Rebound - Extremities Exam Extremities Exam: Joint Swelling (upper extremities) Additional comments: trace edema b/l lower extremities; prevalon boots Roman present - Neurological Exam Neurological Exam: Alert, Awake, Oriented x3 Assessment and Plan (1) Acute respiratory failure Status: Acute (2) Aspiration pneumonia Status: Acute (3) Delirium tremens Status: Acute (4) Constipation Status: Acute (5) Empyema Status: Acute (6) Alcohol abuse Status: Acute (7) Deep vein thrombosis of upper extremity Status: Acute Attending/Attestation - Attestation I have personally seen and examined this patient.: Yes I have fully participated in the care of the patient.: Yes I have reviewed all pertinent clinical information, including history, physical exam and plan: Yes Notes (Text): Patient's Tmax: 101.2F.White count mikhail to 13. Anemia stable. Patient underwent cardiothoracic surgery today. Official operative note pending. Patient is on IV antibiotics per infectious disease Assessment/Plan 1). Sepsis Secondary to Right Middle and Lower Lobe Pneumonia and Suspected Empyema * Infectious Disease (Dr. Spring) on case * Cardiothoracic Surgery Dr. Meza: Chest tube placed 04/18/18 and pleural fluid culture will have to be followed up * Leukocytosis, fever, pneumonia/empyema * CT chest from Apr 15, 2018. Cardiomegaly. Trace pericardial effusion. Coronary artery calcifications. Extensive consolidation throughout the right hemithorax with relative sparing of the right lung apex. Small loculated right-sided pleural effusion measuring approximately 2.1 cm in maximum depth superinfection is not excluded. Mild left basal bibasilar atelectasis. Left hemithorax. Otherwise grossly clear. Limited visualization of the upper ab domen reveals hepatomegaly. Diffuse hepatic steatosis with 2 more focal hypodense regions favored to represent focal fatty infiltration. * CT chest from Apr 17 was suboptimal. No evidence of central pulmonary embolus. Interval worsening of airspace consolidation at the right lung contains foci of low-attenuation possible fluid collection since prior study interval worsening of the right-sided multiple likely request for sacral pleural effusion. * CT chest from 04/20/2018 noted for decreased right pleural effusion. Right chest tube. Extensive right lower lobe atelectasis with right middle lobe and left lower lobe segmental atelectasis. Small left pleural effusion. No pneumothorax. Endotracheal tube and nasogastric tube noted. * Suspect possible aspiration due to the history of alcohol use (see below) * Azithromycin and Rocephin were discontinued on 04/15/18 * Zosyn 3.375 gm IV Q6H (04/15/18 through 04/16/18) * Tamiflu 75 mg PO 2x/day (04/14/18 through 04/19/18) Current IV Abx: * Clindamycin 900 mg IV Q8H (04/16/18) * Vancomycin 1.25 gm IV Q12H (04/15/18) dose adjusted to Vancomycin 1500gm IV Q12H (active since 04/21/18) * Gentamicin 80mg IV Q12H (active 04/21/18) * Meropenem 1 gm IV Q8H (04/16/18) * Micafungin 100mg IV Q24H (active since 04/23/18) * Blood Culture 04/13/18: is negative to date * Blood culture 04/21/18: negative. * Urine culture: 04/21/18 * Pleural fluid (04/18/18): no anaerobes isolated. Fungal culture--prelim * Pleural fluid ): no growth. * Bronchial Washings: 04/19/18: Normal saphrophytic john paul, fungal culture-prelim * Myocbacterial Culture--Prelim:pending * Procalcitonin: 1.64 * s/p OR (04/24/18)-->bx of lung taken, removal of purulent material from right lung. Anterior and posterior chest tubes. 2 units given in OR of PRBC; awaiting official operative note which is not available in the OR. 2). Respiratory Distress Acute Respiratory Faiilure * Patient was intubated and placed on vent on evening 04/15/18 after he started to have DTs * Currently on Fentanyl and Precedex; off Propofol this evening. 3). Alcohol Withdrawal DTs * Currently on Fentanyl and Precedex * MVI tab PO daily * Vitamin B1 tab PO daily * Folic Acid 1 tab PO daily 4). Bilateral Perinephric Stranding (resolved) As seen on CT Abdomen/Pelvis * On exam 04/14/18 and 04/15/18 there was NO CVA tenderness * UA shows NEGATIVE Nitrate, Ketones, and LE * Repeat urine cultures are negative * Patient has roman 5). Alcohol Abuse * Patient revealed 04/14/18 that he drank shots and multiple beers twice a week but told overnight team at time of admission that he did this 5x per week. * Last drink was this past Friday04/10/18 as per patient * MVI tab PO daily * Vitamin B1 tab PO daily * Folic Acid 1 tab PO daily 6). Hyponatremia (resolved) * Likely SIADH * TSH and T4 are normal * Morning Cortisol normal * Triglycerides normal * Urine Osm was high * Urine Na was 35 7). Tachycardia (resolved) * Could this be secondary to the ongoing fever secondary to the pneumonia? * EKG shows Sinus Tachycardia * Tylenol 650 mg OGT Q4H PRN Fever * Normal sinus at bedside; likely secondary to DTs 8). Elevated LFTs and Hepatic Parenchymal Disease (as seen CT Abdomen) Likely secondary to suspected alcohol abuse * Hepatitis Panel negative * HIV negative * UDS negative * On CT scan noted hepatomegaly * uptrending mildly 9). Hypokalemia * monitor and replete 10). Hypomagnesemia * monitor and replete 11). Constipation (resolved) * As seen on Obstruction Series * Senokot * Colace 100 mg PO 3x/day * Had bowel movement 04/15/18 * Patient to get an enema today 04/21/18--> had bowel movement 04/22/18 12) Cephalic DVTS * Patient is on therapeutic lovenox 100mg subq12 Hr held prior to OR 04/23/18 13). Prophylaxis * DVT risk score of 2 based upon Age and diagnosis of Sepsis: lovenox 40mg subqdaily Bilateral SCDs * As patient was intubated 04/15/18, Protonix 40 mg IV 1x/day * Jevity via OGT started at 20 ml/hr with goal of 45 ml/hr * Lactobacillus PO 2x/day * Therapuetic Lovenox held 04/23/18 Updates: 04/16/18: Mary was at bedside and he she was updated on patient's recent developements and status with the help of ICU residen Dr. Severino Tate 04/17/18: Two Sisters, Cousin, Nephew were at bedside and he she was updated on patient's recent developements and status with the help of ICU residen Dr. Severino Tate 04/18/18: with the help of brother in law Carson (who speaks Persian) family members included Mary, were udated as to patient status 04/19/18: Two Sisters at the bedside were updated with the help of PATRICIA Moreno who translated Norwegian 04/20/18: spoke with and sister at bedside 04/21/18: no family present at bedside 04/22/18: I was present at bedside with cardiothoracic surgeon, ICU resident Janay Martin as well as will need a thoracic surgery explained that patient would need a decortication/VATS planned for this Friday. Given patient's empyema and not improving status. is aware that the surgery carries greater risk and that the and depending on the nature of the surgery will ultimately affect isaac ent's ability to be extubated. She is aware that we hope for good outcomes however she does understand it does carry a high mortality. Dr. Tate at bedside translating on behalf of chronic cardiothoracic surgeon as well. 04/24/17: spoke with at bedside. Patient seen postoperative: in pain. off propofol. pending official operative note.
[2018-04-25] MEDS: Albuterol-Ipratrop 3 mg / 0.5 (3 ml) UD INH SCH ×4 (01:18→19:48)
[2018-04-25] MEDS: Gentamicin 80 mg in 0.9% NS 80 MG/100 ML BAG IVPB SCH ×2 (01:23→09:44)
[2018-04-25] MEDS: Dexmedetomidine Hydrochloride 200 MCG in Sodium Chloride 0.9% 48 ML IV PRN ×7 (01:25→19:35)
--- NOTE | 2018-04-25 03:07 | CP.PCM.PN ---
Subjective - Date & Time of Evaluation Date of Evaluation: 04/25/18 Time of Evaluation: 03:04 - Subjective Subjective: SURGERY NOTE FOR DR. HERNANDEZ 43M seen and examined at bedside. Patient intubated, awake on precedex gtt. Comfortable and following commands. Per nurse pt had a drop in BP and is currently on 3rd PRBC since OR. Ventilator settings have been stable. Objective - Vital Signs/Intake and Output Vital Signs (last 24 hours): Temp Pulse Resp BP Pulse Ox 100 F H 92 H 19 100/60 97 04/25/18 02:30 04/25/18 02:30 04/25/18 02:30 04/25/18 02:30 04/25/18 02:19 Intake and Output: 04/24/18 04/25/18 18:59 06:59 Intake Total 3028.3 2196.9 Output Total 1865 430 Balance 1163.3 1766.9 - Medications Medications: Current Medications Albuterol/Ipratropium (Duoneb 3 Mg/0.5 Mg (3 Ml) Ud) 3 ml INH RQ6 [facility] Last Admin: 04/25/18 01:18 Dose: 3 ml Docusate Sodium (Colace) 100 mg PO TID [facility] Last Admin: 04/24/18 19:34 Dose: Not Given Enoxaparin Sodium (Lovenox) 100 mg SC Q12 [facility] Last Admin: 04/23/18 10:25 Dose: 100 mg Folic Acid (Folic Acid) 1 mg PO DAILY [facility] Last Admin: 04/24/18 17:00 Dose: 1 mg Furosemide (Lasix) 40 mg IVP Q12H [facility] Last Admin: 04/25/18 01:21 Dose: Not Given Meropenem 1 gm/ Sodium (Chloride) 100 mls @ 100 mls/hr IVPB Q8H [facility]; Protocol Last Admin: 04/24/18 20:33 Dose: 100 mls/hr Clindamycin Phosphate 900 mg/ (Sodium Chloride) 106 mls @ 100 mls/hr IV Q8H [facility]; Protocol Last Admin: 04/24/18 22:43 Dose: 100 mls/hr Fentanyl Citrate 2,500 mcg/ (Sodium Chloride) 250 mls @ 19.92 mls/hr IV .[id number] [facility]; Protocol Last Titration: 04/25/18 01:00 Dose: 3.21 mcg/kg/hr, 32 mls/hr Vancomycin HCl 1,500 mg/ (Sodium Chloride) 500 mls @ 200 mls/hr IVPB Q12H [facility]; Protocol Last Admin: 04/25/18 02:42 Dose: 200 mls/hr Dexmedetomidine HCl 200 mcg/ (Sodium Chloride) 50 mls @ 14.9 mls/hr IV TITR PRN; Protocol PRN Reason: Agitation Last Admin: 04/25/18 01:25 Dose: 1 mcg/kg/hr, 24.83 mls/hr Gentamicin Sulfate/Sodium Chloride (Gentamicin 80mg/100ml Ns) 80 mg in 100 mls @ 100 mls/hr IVPB Q8H [facility]; Protocol Last Admin: 04/25/18 01:23 Dose: 100 mls/hr Micafungin Sodium 100 mg/ (Sodium Chloride) 100 mls @ 100 mls/hr IV Q24H [facility]; Protocol Last Admin: 04/24/18 19:36 Dose: 100 mls/hr BUPIVACAINE 0.125%/0.9% NACL (Bupivacaine-Ns 0.125% On-Q Disease Education Specialist) 600 mls @ 4 mls/hr IJ ONCE ONE Stop: 04/30/18 12:20 Ibuprofen (Motrin Tab) 400 mg PO Q6H PRN PRN Reason: fever Last Admin: 04/24/18 16:59 Dose: 400 mg Lactobacillus Acidophilus (Bacid Acidophilus) 1 cap PO BID [facility] Last Admin: 04/24/18 17:00 Dose: 1 cap Multivitamins (Hexavitamin) 1 tab PO DAILY [facility] Last Admin: 04/24/18 17:00 Dose: 1 tab Pantoprazole Sodium (Protonix Inj) 40 mg IVP DAILY [facility] Last Admin: 04/24/18 17:01 Dose: 40 mg Sennosides (Senokot Tab) 8.6 mg PO BID [facility] Last Admin: 04/24/18 17:00 Dose: 8.6 mg Thiamine HCl (Vitamin B1 Tab) 100 mg PO DAILY [facility] Last Admin: 04/24/18 17:00 Dose: 100 mg - Labs Labs: 04/24/18 16:12 04/24/18 06:24 PT 13.7 SECONDS (9.7-12.2) H 04/24/18 06:26 INR 1.3 04/24/18 06:26 APTT 42 SECONDS (21-34) H 04/24/18 06:26 - Constitutional Appears: Other (intubated) - Respiratory Exam Additional comments: intubated on mechanical vent Incision dressing CDI Chest tubes in place ANT - 200 since OR serosang POST - 240 since OR sero sang - both on suction without air leak - Cardiovascular Exam Cardiovascular Exam: REGULAR RHYTHM, +S1, +S2 - GI/Abdominal Exam GI & Abdominal Exam: Soft. absent: Distended, Firm, Guarding, Rigid, Tenderness, Rebound - Neurological Exam Neurological Exam: Alert, Awake - Skin Skin Exam: Dry, Intact, Normal Color, Warm Assessment and Plan - Assessment and Plan (Free Text) Assessment: 43M s/p right thoracotomy, decortication, drainage of fibrinous exudates, lung biopsy*2, 2 chest tube placements Plan: - await biopsy - monitor chest tube output - chest tubes to suction - await OR cultures - ICU management - Wean off vent per ICU Further recs discuss with Dr. Susana Hernandez, PGY3
--- NOTE | 2018-04-25 03:13 | PCM.SURG1 ---
Surgeon's Initial Post Op Note - Surgeon's Notes Surgeon: MD Susana Control Clerk Head: David, PGY3. Maris, PGY3. Darshan, MS3 Pre-Operative Diagnosis: Right lung empyema Operative Findings: caseaous fibrinous exudates in pleural space, entrapped lung, hematoma Post-Operative Diagnosis: right lung empyema Operation Performed: Right thoracotomy, decortication of right lung, drainage of right lung infection/exudates, right middle and inferior lobe biopsy, right sided chest tube placement*2 Specimen/Specimens Removed: portion of middle lobe on right lobe, portion of lower lobe on right lung, fibrinous peel, right lung fluid/hematoma Estimated Blood Loss: EBL {In ML}: 500 Blood Products Given: PRBC (1unit) Drains Used: Chest Tubes (right anterior and posterior chest tube) Date of Surgery/Procedure: 04/24/18 Time of Surgery/Procedure: 12:00
[2018-04-25 04:23] LABS: ARTERIAL BLOOD GAS HCO3 28.4 mmol/L (21-28); ARTERIAL BLOOD GAS HEMOGLOBIN 11.1 g/dL (11.7-17.4); ARTERIAL BLOOD GAS PCO2 43 mm/Hg (35-45); ARTERIAL BLOOD GAS PH 7.44 (7.35-7.45); ARTERIAL BLOOD GAS PO2 77 mm/Hg (80-100); ARTERIAL BLOOD GAS TCO2 30.5 mmol/L (22-28)
[2018-04-25] MEDS: Meropenem 1 GM in Sodium Chloride 0.9% 100 ML IVPB SCH ×3 (05:27→20:31)
[2018-04-25 06:28] LABS: BASO # 0.1 K/uL (0.0-0.2); BASO % 1.3 % (0.0-2.0); EOS % 0.4 % (0.0-4.0); HEMOGLOBIN 11.2 g/dL (12.0-18.0); LYMPH # 0.8 K/uL (1.0-4.3); LYMPH % 7.6 % (20.0-40.0); MEAN CELL VOLUME 88.7 fL (80.0-94.0); MEAN CORPUSCULAR HEMOGLOBIN 30.2 pg (27.0-31.0); MEAN CORPUSCULAR HGB CONC 34.1 g/dL (33.0-37.0); MEAN PLATELET VOLUME 9.1 fL (7.2-11.7); MONO # 0.6 K/uL (0.0-0.8); MONO % 5.7 % (0.0-10.0); NEUT # 8.5 K/uL (1.8-7.0); PLATELET COUNT 448 K/uL (130-400); RED CELL DISTRIBUTION WIDTH 14.7 % (11.5-14.5)
[2018-04-25 06:45] LABS: ALB/GLOB RATIO 0.5 (1.0-2.1); ALBUMIN 2.2 g/dL (3.5-5.0); ALT/SGPT 39 U/L (21-72); AST/SGOT 58 U/L (17-59); BLOOD UREA NITROGEN 19 mg/dL (9-20); CALCIUM 7.7 mg/dl (8.6-10.4); GFR NON-AFRICAN AMERICAN > 60
--- NOTE | 2018-04-25 08:53 | RAD ---
Date of service: 04/25/2018 HISTORY: on vent/chest tubes COMPARISON: Portable chest 04/24/2018 4:13 p.m.. FINDINGS: LUNGS: Endotracheal and nasogastric tubes do not appear significantly changed in position. 2 right-sided chest tubes are stable as well with right central venous line unchanged. Postoperative changes are resolved status post prior right thoracotomy with mild right pleural effusion evident. None is appreciated at the left. Fluid is seen in the minor fissure and right basilar opacity reflects atelectasis or potential infiltrate. Limited patchy density left perihilar region with left chest otherwise clear. Cardiac silhouette appears stable. No pulmonary vascular congestion. PLEURA: As above. CARDIOVASCULAR: No aortic atherosclerotic calcification present. As above. OSSEOUS STRUCTURES: No significant abnormalities. VISUALIZED UPPER ABDOMEN: Normal. OTHER FINDINGS: None. IMPRESSION: Postop changes are slowly resolving at the right hemithorax as post decortication previously. Tubes and catheters unchanged in position with right basilar atelectasis favored over infiltrate. Mild right pleural effusion is noted including the minor fissure. Limited left perihilar patchy density noted. Clinical and radiographic follow-up advised.
[2018-04-25] MEDS: Multiple Vitamins Tab PO SCH (10:09)
[2018-04-25 10:14] LABS: ANISOCYTOSIS SLIGHT; BANDS 12 % (0-2); BASOPHIL 2 % (0-2); EOSINOPHIL 1 % (0-4); LYMPHOCYTE 4 % (20-40); MONOCYTE 3 % (0-10); NEUTROPHIL 78 % (50-75); PLATELET ESTIMATE SLIGHTLY INCREASED (NORMAL); TOTAL CELLS COUNTED 100
[2018-04-25] MEDS: Lactobacillus Acidophilus 500 MU Cap PO SCH ×2 (11:03→17:25)
--- NOTE | 2018-04-25 13:49 | CP.PCM.PN ---
Subjective - Date & Time of Evaluation Date of Evaluation: 04/25/18 Time of Evaluation: 13:00 - Subjective Subjective: Medical attending note Patient seen, examined and case discussed with ICU. Patient seen at bedside with both his and sister and friend. Patient is awake patient is currently on fentanyl and Precedex propofol was discontinued yesterday. Patient is postoperative day 1 of cardiothoracic procedure.. Patient does have a temperature at bedside. Patient has completed 3 units of PRBC 1 unit was given in the OR and 2 units were given post OR. Also to note patient's last bowel movement was on the . Spoke with ICU possible restart therapeutic Lovenox for cephalic DVTs tomorrow. Postoperative management per cardiothoracic. Per ICU for potential weaning when deemed appropriate. Objective - Vital Signs/Intake and Output Vital Signs (last 24 hours): Temp Pulse Resp BP Pulse Ox 101.9 F H 101 H 19 115/54 L 97 04/25/18 10:00 04/25/18 11:01 04/25/18 11:01 04/25/18 11:01 04/25/18 11:01 Intake and Output: 04/25/18 04/25/18 06:59 18:59 Intake Total 3288.8 717.0 Output Total 935 320 Balance 2353.8 397.0 - Medications Medications: Current Medications Albuterol/Ipratropium (Duoneb 3 Mg/0.5 Mg (3 Ml) Ud) 3 ml INH RQ6 [facility] Last Admin: 04/25/18 13:48 Dose: 3 ml Docusate Sodium (Colace) 100 mg PO TID [facility] Last Admin: 04/25/18 10:05 Dose: 100 mg Enoxaparin Sodium (Lovenox) 100 mg SC Q12 [facility] Last Admin: 04/23/18 10:25 Dose: 100 mg Folic Acid (Folic Acid) 1 mg PO DAILY [facility] Last Admin: 04/25/18 10:09 Dose: 1 mg Furosemide (Lasix) 40 mg IVP Q12H [facility] Last Admin: 04/25/18 01:21 Dose: Not Given Meropenem 1 gm/ Sodium (Chloride) 100 mls @ 100 mls/hr IVPB Q8H [facility]; Protocol Last Admin: 04/25/18 05:27 Dose: 100 mls/hr Clindamycin Phosphate 900 mg/ (Sodium Chloride) 106 mls @ 100 mls/hr IV Q8H [facility]; Protocol Last Admin: 04/25/18 06:30 Dose: 100 mls/hr Fentanyl Citrate 2,500 mcg/ (Sodium Chloride) 250 mls @ 19.92 mls/hr IV .[id number] [facility]; Protocol Last Admin: 04/25/18 06:30 Dose: 2.45 mcg/kg/hr, 24.4 mls/hr Vancomycin HCl 1,500 mg/ (Sodium Chloride) 500 mls @ 200 mls/hr IVPB Q12H [facility]; Protocol Last Admin: 04/25/18 02:42 Dose: 200 mls/hr Dexmedetomidine HCl 200 mcg/ (Sodium Chloride) 50 mls @ 14.9 mls/hr IV TITR PRN; Protocol PRN Reason: Agitation Last Admin: 04/25/18 10:11 Dose: 0.6 mcg/kg/hr, 14.9 mls/hr Gentamicin Sulfate/Sodium Chloride (Gentamicin 80mg/100ml Ns) 80 mg in 100 mls @ 100 mls/hr IVPB Q8H [facility]; Protocol Last Admin: 04/25/18 09:44 Dose: 100 mls/hr Micafungin Sodium 100 mg/ (Sodium Chloride) 100 mls @ 100 mls/hr IV Q24H [facility]; Protocol Last Admin: 04/24/18 19:36 Dose: 100 mls/hr BUPIVACAINE 0.125%/0.9% NACL (Bupivacaine-Ns 0.125% On-Q [employer]) 600 mls @ 4 mls/hr IJ ONCE ONE Stop: 04/30/18 12:20 Ibuprofen (Motrin Tab) 400 mg PO Q6H PRN PRN Reason: fever Last Admin: 04/25/18 11:42 Dose: 400 mg Lactobacillus Acidophilus (Bacid Acidophilus) 1 cap PO BID [facility] Last Admin: 04/25/18 11:03 Dose: 1 cap Multivitamins (Hexavitamin) 1 tab PO DAILY [facility] Last Admin: 04/25/18 10:09 Dose: 1 tab Pantoprazole Sodium (Protonix Inj) 40 mg IVP DAILY [facility] Last Admin: 04/25/18 10:09 Dose: 40 mg Sennosides (Senokot Tab) 8.6 mg PO BID [facility] Last Admin: 04/25/18 10:09 Dose: 8.6 mg Thiamine HCl (Vitamin B1 Tab) 100 mg PO DAILY [facility] Last Admin: 04/25/18 10:09 Dose: 100 mg - Labs Labs: 04/25/18 06:22 04/25/18 06:22 PT 13.7 SECONDS (9.7-12.2) H 04/24/18 06:26 INR 1.3 04/24/18 06:26 APTT 42 SECONDS (21-34) H 04/24/18 06:26 - Constitutional Appears: No Acute Distress, Chronically Ill - Head Exam Head Exam: NORMAL INSPECTION - Eye Exam Eye Exam: Conjunctival injection (Right eye ) Pupil Exam: NORMAL ACCOMODATION - ENT Exam ENT Exam: Mucous Membranes Dry - Respiratory Exam Respiratory Exam: Decreased Breath Sounds, Rales. absent: Respiratory Distress, Stridor Additional comments: Right chest tube Left chest tube - Cardiovascular Exam Cardiovascular Exam: REGULAR RHYTHM, +S1, +S2 - GI/Abdominal Exam GI & Abdominal Exam: Distended, Soft, Normal Bowel Sounds. absent: Firm, Guarding, Rigid, Tenderness, Rebound - Exam Additional comments: Roman present urine output noted no blood observed - Extremities Exam Extremities Exam: Joint Swelling (Upper extremitybilateral and less), Pedal Edema (Trace) Additional comments: Performed boots bilateral - Neurological Exam Neurological Exam: Alert, Awake, Oriented x3 Additional comments: Please note and patient is off propofol he is able to follow commands. He is able to move his upper extreme is on command he is able to bend and flex at the knees in both legs - Skin Skin Exam: Dry, Normal Color, Warm Assessment and Plan (1) Acute respiratory failure Status: Acute (2) Aspiration pneumonia Status: Acute (3) Delirium tremens Status: Acute (4) Constipation Status: Acute (5) Empyema Status: Acute (6) Alcohol abuse Status: Acute (7) Deep vein thrombosis of upper extremity Status: Acute Attending/Attestation - Attestation I have personally seen and examined this patient.: Yes I have fully participated in the care of the patient.: Yes I have reviewed all pertinent clinical information, including history, physical exam and plan: Yes Notes (Text): Patient is postoperative day 1. Patient's T-max was 102 has a 6 cm this morning. Patient does have ice placed over his head and cooling blanket.. Patient is status post OR 3 units of PRBC given. Therapeutic Lovenox held prior to the OR. Discussed with ICU potential to restart tomorrow. Patient's white count has normalized. Patient's hemoglobin 11.2 as of this morning side. No blood platelets are likely reactive. Patient noted to have bands which could account for also in the acute stressor of her surgery. ABG noted for noted low PO2 patient remains intubated on vent. Fluid from the OR April 24, 2018 noted for elevated WBC 18,162, RBC 513,845 elevated cell count mildly. Lung culture from the OR prelim shows no growth after 24 hours x2 pleural fluid from the OR showing no growth after 24 hours x2. Assessment/Plan 1). Sepsis Secondary to Right Middle and Lower Lobe Pneumonia and Suspected Empyema * Infectious Disease (Dr. Spring) on case * Cardiothoracic Surgery Dr. Meza: Chest tube placed 04/18/18 and pleural fluid culture will have to be followed up * Post operative note April 24, 2018. Patient underwent a right thoracotomy, decortication of the right lung, drainage of the right lung infection/exudates, right middle inferior lobe biopsy performed, right-sided chest tube placement x2. Specimen noted portion of the middle lobe of the right lobe, portion of the lower lobe on right lung, right lung fluid/hematoma. * 04/24/18 Tissue Culture: No growth after 24 hours * 04/24/18 Pleural Fluid: no growth after 24 hours * 04/24/18 Lung: No growth after 24 hours * 04/24/18 Lung: No growth after 24 hours * Leukocytosis, fever, pneumonia/empyema * CT chest from Apr 15, 2018. Cardiomegaly. Trace pericardial effusion. Coronary artery calcifications. Extensive consolidation throughout the right hemithorax with relative sparing of the right lung apex. Small loculated right-sided pleural effusion measuring approximately 2.1 cm in maximum depth superinfection is not excluded. Mild left basal bibasilar atelectasis. Left hemithorax. Otherwise grossly clear. Limited visualization of the upper abdomen reveals hepatomegaly. Diffuse hepatic steatosis with 2 more focal hypodense regions favored to represent focal fatty infiltration. * CT chest from Apr 17 was suboptimal. No evidence of central pulmonary embolus. Interval worsening of airspace consolidation at the right lung contains foci of low-attenuation possible fluid collection since prior study interval worsening of the right-sided multiple likely request for sacral pleural effusion. * CT chest from 04/20/2018 noted for decreased right pleural effusion. Right chest tube. Extensive right lower lobe atelectasis with right middle lobe and left lower lobe segmental atelectasis. Small left pleural effusion. No pneumothorax. Endotracheal tube and nasogastric tube noted. * Chest xray (04/25/18): postop changes are slowly resolving at the right hemithorax as post decorticulation previously. Tube and catheters unchanged in position with right basilar atectasis favored over infiltrate. Mild right pleural effusion is noted including the minor fissue. Limited left perihilar opacity density noted. * Azithromycin and Rocephin were discontinued on 04/15/18 * Zosyn 3.375 gm IV Q6H (04/15/18 through 04/16/18) * Tamiflu 75 mg PO 2x/day (04/14/18 through 04/19/18) Current IV Abx: * Clindamycin 900 mg IV Q8H (04/16/18) * Vancomycin 1.25 gm IV Q12H (04/15/18) dose adjusted to Vancomycin 1500gm IV Q12H (active since 04/21/18) * Gentamicin 80mg IV Q12H (active 04/21/18) * Meropenem 1 gm IV Q8H (04/16/18) * Micafungin 100mg IV Q24H (active since 04/23/18) * Blood Culture 04/13/18: is negative to date * Blood culture 04/21/18: negative. * Urine culture: 04/21/18 * Pleural fluid (04/18/18): no anaerobes isolated. Fungal culture--prelim * Pleural fluid (04/18/18): no growth. * Bronchial Washings: 04/19/18: Normal saphrophytic john paul, fungal culture-prelim * Myocbacterial Culture--Prelim:pending * Procalcitonin: 1.64 * s/p OR (04/24/18)-->bx of lung taken, removal of purulent material from right lung. Anterior and posterior chest tubes. 2 units given in OR of PRBC 2). Respiratory Distress Acute Respiratory Faiilure * Patient was intubated and placed on vent on evening 04/15/18 after he started to have DTs * Currently on Fentanyl and Precedex; off Propofol yesterday 3). Alcohol Withdrawal DTs * Currently on Fentanyl and Precedex * MVI tab PO daily * Vitamin B1 tab PO daily * Folic Acid 1 tab PO daily 4). Bilateral Perinephric Stranding (resolved) As seen on CT Abdomen/Pelvis * On exam 04/14/18 and 04/15/18 there was NO CVA tenderness * UA shows NEGATIVE Nitrate, Ketones, and LE * Repeat urine cultures are negative * Patient has roman 5). Alcohol Abuse * Patient revealed 04/14/18 that he drank shots and multiple beers twice a week but told overnight team at time of admission that he did this 5x per week. * Last drink was this past Friday04/10/18 as per patient * MVI tab PO daily * Vitamin B1 tab PO daily * Folic Acid 1 tab PO daily 6). Hyponatremia (resolved) * Likely SIADH * TSH and T4 are normal * Morning Cortisol normal * Triglycerides normal * Urine Osm was high * Urine Na was 35 7). Tachycardia (resolved) * Could this be secondary to the ongoing fever secondary to the pneumonia? * EKG shows Sinus Tachycardia * Tylenol 650 mg OGT Q4H PRN Fever * Normal sinus at bedside; likely secondary to DTs 8). Elevated LFTs and Hepatic Parenchymal Disease (as seen CT Abdomen) Likely secondary to suspected alcohol abuse * Hepatitis Panel negative * HIV negative * UDS negative * On CT scan noted hepatomegaly * uptrending mildly 9). Hypokalemia * monitor and replete 10). Hypomagnesemia * monitor and replete 11). Constipation * As seen on Obstruction Series * Senokot * Colace 100 mg PO 3x/day * Had bowel movement 04/15/18 * Patient to get an enema 04/21/18--> had bowel movement 04/22/18 * Patient distended on exam. 12) Cephalic DVTS * Patient is on therapeutic lovenox 100mg subq12 Hr held prior to OR 04/23/18 13). Prophylaxis * DVT risk score of 2 based upon Age and diagnosis of Sepsis: lovenox 40mg subqdaily Bilateral SCDs * As patient was intubated 04/15/18, Protonix 40 mg IV 1x/day * Jevity via OGT started at 20 ml/hr with goal of 45 ml/hr * Lactobacillus PO 2x/day * Therapuetic Lovenox held 04/23/18 Updates: 04/16/18: Mary was at bedside and he she was updated on patient's recent developements and status with the help of ICU residen Dr. Severino Tate 04/17/18: Two Sisters, Cousin, Nephew were at bedside and he she was updated on patient's recent developements and status with the help of ICU residen Dr. Severino Tate 04/18/18: with the help of brother in law Byrd (who speaks Irish) family members included Mary, were udated as to patient status 04/19/18: Two Sisters at the bedside were updated with the help of PATRICIA Moreno who translated Iranian 04/20/18: spoke with and sister at bedside 04/21/18: no family present at bedside 04/22/18: I was present at bedside with cardiothoracic surgeon, ICU resident Janay Martin as well as will need a thoracic surgery explained that patient would need a decortication/VATS planned for this Friday. Given patient's empyema and not improving status. is aware that the surgery carries greater risk and that the and depending on the nature of the surgery will ultimately affect patient's ability to be extubated. She is aware that we hope for good outcomes however she does understand it does carry a high mortality. Dr. Tate at bedside translating on behalf of chronic cardiothoracic surgeon as well. 04/24/17: spoke with at bedside. Patient seen postoperative: in pain. off p ropofol. pending official operative note. 04/25/18: Spoke with family at bedside; patient is status post 3 units PRBC. Follow-up cultures.
--- NOTE | 2018-04-25 15:20 | CP.CCUPN ---
CCU Subjective - Physician Review Events Since Last Encounter (Free Text): 04/25/18 15:03 intubated but alert on vent. pain well controlled. CCU Objective - Vital Signs / Intake & Output Vital Signs (Last 4 hours): Vital Signs Pulse Resp BP Pulse Ox 04/25/18 14:01 96 H 29 H 95/56 L 98 04/25/18 13:01 100 H 27 H 94/45 L 97 04/25/18 12:35 112/49 L 04/25/18 12:01 106 H 24 112/49 L 97 Intake and Output (Last 8hrs): Intake & Output 04/25/18 04/25/18 04/25/18 06:59 14:59 22:59 Intake Total 2298.2 1529.2 Output Total 775 410 Balance 1523.2 1119.2 Weight 209 lb Intake: IV 400 109 Intake, IV Amount 1438.2 915.2 Medial Port Internal 183.6 119.2 Jugular Proximal IJ TLC 254.6 196.0 Proximal TLC 500 Right Distal Port 300 100 Internal Jugular Right Proximal TLC [place] 700 Tube Feeding 200 355 Blood Product 0 Apheresis Rbc Cp2d As3 Lr 0 1st Unit [id number] Red Blood Cells Cp2d As3 0 Lr Unit [id number] Other 260 150 Apheresis Rbc Cp2d As3 Lr 100 1st Unit [id number] Red Blood Cells Cp2d As3 100 Lr Unit [id number] Output: Chest Tube Drainage 340 Right Lateral Chest 170 Right Posterior Chest 170 Urine 435 410 Urethral (Roman) 435 410 - Physical Exam Head: Positive for: Atraumatic, Normocephalic Pupils: Positive for: PERRL Extroacular Muscles: Positive for: EOMI Conjunctiva: Positive for: Normal Neck: Positive for: Normal Range of Motion Respiratory/Chest: Positive for: Decreased Breath Sounds (right middle and lower lobes ), Other (intubated and sedated ). Negative for: Respiratory Distress, Accessory Muscle Use Cardiovascular: Positive for: Regular Rate and Rhythm, Normal S1, S2 Abdomen: Positive for: Distention, Normal Bowel Sounds. Negative for: Tenderness Upper Extremity: Positive for: Normal Inspection. Negative for: Cyanosis, Edema Lower Extremity: Positive for: Normal Inspection. Negative for: Edema Neurological: Positive for: Other (unable to assess due to pts condition ) Skin: Positive for: Warm, Dry, Normal Color Psychiatric: Positive for: Other (sedated, not awake or oriented, opens eyes). Negative for: Alert, Oriented x 3 - Medications Active Medications: Active Medications Generic Name Dose Route Start Last Admin Trade Name Freq PRN Reason Stop Dose Admin Albuterol/Ipratropium 3 ml 04/15/18 08:00 04/25/18 13:48 Duoneb 3 Mg/0.5 Mg (3 Ml) Ud INH 3 ml RQ6 JESUS Administration Docusate Sodium 100 mg 04/14/18 18:30 04/25/18 10:05 Colace PO 100 mg TID JESUS Administration Enoxaparin Sodium 100 mg 04/21/18 22:00 04/23/18 10:25 Lovenox SC 100 mg Q12 JESUS Administration Folic Acid 1 mg 04/14/18 10:00 04/25/18 10:09 Folic Acid PO 1 mg DAILY JESUS Administration Furosemide 40 mg 04/23/18 13:00 04/25/18 12:35 Lasix IVP 40 mg Q12H JESUS Administration Meropenem 1 gm/ Sodium 100 mls @ 100 mls/hr 04/16/18 21:00 04/25/18 12:30 Chloride IVPB 100 mls/hr Q8H JESUS Administration Protocol Clindamycin Phosphate 900 mg/ 106 mls @ 100 mls/hr 04/16/18 23:30 04/25/18 06:30 Sodium Chloride IV 100 mls/hr Q8H JESUS Administration Protocol Fentanyl Citrate 2,500 mcg/ 250 mls @ 19.92 mls/hr 04/19/18 22:00 04/25/18 06:30 Sodium Chloride IV 2.45 mcg/kg/hr .[id number] JESUS 24.4 mls/hr Administration Protocol 2 MCG/KG/HR Vancomycin HCl 1,500 mg/ 500 mls @ 200 mls/hr 04/22/18 03:00 04/25/18 14:34 Sodium Chloride IVPB 200 mls/hr Q12H JESUS Administration Protocol Dexmedetomidine HCl 200 mcg/ 50 mls @ 14.9 mls/hr 04/22/18 15:16 04/25/18 14:33 Sodium Chloride IV 0.8 mcg/kg/hr TITR PRN 19.87 mls/hr Agitation Titration Protocol 0.6 MCG/KG/HR Gentamicin Sulfate/Sodium Chloride 80 mg in 100 mls @ 100 mls/hr 04/23/18 02:00 04/25/18 09:44 Gentamicin 80mg/100ml Ns IVPB 100 mls/hr Q8H JESUS Administration Protocol Micafungin Sodium 100 mg/ 100 mls @ 100 mls/hr 04/23/18 18:30 04/24/18 19:36 Sodium Chloride IV 100 mls/hr Q24H JESUS Administration Protocol Ibuprofen 400 mg 04/19/18 03:31 04/25/18 11:42 Motrin Tab PO 400 mg Q6H PRN Administration fever Lactobacillus Acidophilus 1 cap 04/14/18 18:45 04/25/18 11:03 Bacid Acidophilus PO 1 cap BID JESUS Administration Multivitamins 1 tab 04/14/18 10:00 04/25/18 10:09 Hexavitamin PO 1 tab DAILY JESUS Administration Pantoprazole Sodium 40 mg 04/14/18 10:00 04/25/18 10:09 Protonix Inj IVP 40 mg DAILY JESUS Administration Sennosides 8.6 mg 04/14/18 00:15 04/25/18 10:09 Senokot Tab PO 8.6 mg BID JESUS Administration Thiamine HCl 100 mg 04/14/18 10:00 04/25/18 10:09 Vitamin B1 Tab PO 100 mg DAILY JESUS Administration - Patient Studies Lab Studies: Microbiology Studies 04/24/18 Unknown Gram Stain - Final Lung Tissue Culture - Preliminary NO GROWTH AFTER 24 HOURS 04/24/18 19:10 Gram Stain - Final Other: Please Indicate Tissue Culture - Preliminary NO GROWTH AFTER 24 HOURS 04/24/18 Unknown Gram Stain - Final Lung Tissue Culture - Preliminary NO GROWTH AFTER 24 HOURS 04/24/18 19:10 Gram Stain - Final Pleural Fluid Body Fluid Culture - Preliminary NO GROWTH AFTER 24 HOURS 04/21/18 17:04 Blood Culture - Preliminary Blood NO GROWTH AFTER 3 DAYS 04/21/18 15:00 Blood Culture - Preliminary Blood NO GROWTH AFTER 3 DAYS Lab Studies 04/25/18 04/25/18 04/25/18 Range/Units 06:22 06:22 04:15 WBC 10.0 (4.8-10.8) K/uL RBC 3.70 L (4.40-5.90) Mil/uL Hgb 11.2 L (12.0-18.0) g/dL Hct 32.8 L (35.0-51.0) % MCV 88.7 (80.0-94.0) fL MCH 30.2 (27.0-31.0) pg MCHC 34.1 (33.0-37.0) g/dL RDW 14.7 H (11.5-14.5) % Plt Count 448 H D (130-400) K/uL MPV 9.1 (7.2-11.7) fL Neut % (Auto) 85.0 H (50.0-75.0) % Lymph % (Auto) 7.6 L (20.0-40.0) % [place] % (Auto) 5.7 (0.0-10.0) % Eos % (Auto) 0.4 (0.0-4.0) % Baso % (Auto) 1.3 (0.0-2.0) % Neut # (Auto) 8.5 H (1.8-7.0) K/uL Lymph # (Auto) 0.8 L (1.0-4.3) K/uL [place] # (Auto) 0.6 (0.0-0.8) K/uL Eos # (Auto) 0.0 (0.0-0.7) K/uL Baso # (Auto) 0.1 (0.0-0.2) K/uL Neutrophils % (Manual) 78 H (50-75) % Band Neutrophils % 12 H* (0-2) % Lymphocytes % (Manual) 4 L (20-40) % Monocytes % (Manual) 3 (0-10) % Eosinophils % (Manual) 1 (0-4) % Basophils % (Manual) 2 (0-2) % Platelet Estimate Slightly increased H (NORMAL) Large Platelets Hypochromasia (manual) Anisocytosis (manual) Slight Microcytosis (manual) Puncture Site Lb pCO2 43 (35-45) mm/Hg pO2 77 L (80-100) mm/Hg HCO3 28.4 H (21-28) mmol/L ABG pH 7.44 (7.35-7.45) ABG Total CO2 30.5 H (22-28) mmol/L ABG O2 Saturation 98.0 (95-98) % ABG Base Excess 4.5 H (-2.0-3.0) mmol/L ABG Hemoglobin 11.1 L (11.7-17.4) g/dL ABG Carboxyhemoglobin 2.2 H (0.5-1.5) % POC ABG HHb (Measured) 1.9 (0.0-5.0) % ABG Methemoglobin 0.9 (0.0-3.0) % [place] Test Na ABG Potassium (3.6-5.2) mmol/L A-a O2 Difference 424.0 mm/Hg Respiratory Index 4.8 Hgb O2 Saturation 95.0 (95.0-98.0) % Sodium 139 (132-148) mmol/l Chloride 107 (98-107) mmol/L Glucose (75-110) mg/dl Lactate (0.7-2.1) mmol/L Vent Mode Prvc Mechanical Rate 18 FiO2 80.0 % Tidal Volume 450 PEEP 8 Potassium 3.9 (3.6-5.2) mmol/L Carbon Dioxide 30 (22-30) mmol/L Anion Gap 6 L (10-20) BUN 19 (9-20) mg/dL Creatinine 0.6 L (0.8-1.5) mg/dL Est GFR ( Amer) > 60 Est GFR (Non-Af Amer) > 60 POC Glucose (mg/dL) (65-110) mg/dL Random Glucose 102 (75-110) mg/dL Calcium 7.7 L (8.6-10.4) mg/dl Phosphorus 4.0 (2.5-4.5) mg/dL Magnesium 1.9 (1.6-2.3) mg/dL Total Bilirubin 1.1 (0.2-1.3) mg/dL AST 58 (17-59) U/L ALT 39 (21-72) U/L Alkaline Phosphatase 168 H D (38-126) U/L Total Protein 6.2 L (6.3-8.3) g/dL Albumin 2.2 L (3.5-5.0) g/dL Globulin 4.0 H (2.2-3.9) gm/dL Albumin/Globulin Ratio 0.5 L (1.0-2.1) Arterial Blood Potassium (3.6-5.2) mmol/L Fluid Source Fluid Appearance (CLEAR) Fluid WBC (0.0-300.0) /mm3 Fluid RBC (0.0-0.0) /mm3 Fluid Tot Cell Count (0-0) Fluid Neutrophils (0-0) % Fluid Lymphocytes (0-0) % Fld Monocyte/Macrophag (0-0) % Fluid Comment Blood Type Antibody Screen 04/24/18 04/24/18 04/24/18 Range/Units 19:10 18:07 17:35 WBC (4.8-10.8) K/uL RBC (4.40-5.90) Mil/uL Hgb (12.0-18.0) g/dL Hct (35.0-51.0) % MCV (80.0-94.0) fL MCH (27.0-31.0) pg MCHC (33.0-37.0) g/dL RDW (11.5-14.5) % Plt Count (130-400) K/uL MPV (7.2-11.7) fL Neut % (Auto) (50.0-75.0) % Lymph % (Auto) (20.0-40.0) % [place] % (Auto) (0.0-10.0) % Eos % (Auto) (0.0-4.0) % Baso % (Auto) (0.0-2.0) % Neut # (Auto) (1.8-7.0) K/uL Lymph # (Auto) (1.0-4.3) K/uL [place] # (Auto) (0.0-0.8) K/uL Eos # (Auto) (0.0-0.7) K/uL Baso # (Auto) (0.0-0.2) K/uL Neutrophils % (Manual) (50-75) % Band Neutrophils % (0-2) % Lymphocytes % (Manual) (20-40) % Monocytes % (Manual) (0-10) % Eosinophils % (Manual) (0-4) % Basophils % (Manual) (0-2) % Platelet Estimate (NORMAL) Large Platelets Hypochromasia (manual) Anisocytosis (manual) Microcytosis (manual) Puncture Site Lra pCO2 41 (35-45) mm/Hg pO2 75 L (80-100) mm/Hg HCO3 24.7 (21-28) mmol/L ABG pH 7.39 (7.35-7.45) ABG Total CO2 26.1 (22-28) mmol/L ABG O2 Saturation 97.5 (95-98) % ABG Base Excess -0.2 (-2.0-3.0) mmol/L ABG Hemoglobin (11.7-17.4) g/dL ABG Carboxyhemoglobin (0.5-1.5) % POC ABG HHb (Measured) (0.0-5.0) % ABG Methemoglobin (0.0-3.0) % [place] Test Pos ABG Potassium 4.0 (3.6-5.2) mmol/L A-a O2 Difference 444.0 mm/Hg Respiratory Index 5.9 Hgb O2 Saturation (95.0-98.0) % Sodium 141.0 (132-148) mmol/l Chloride 111.0 H (98-107) mmol/L Glucose 99 (75-110) mg/dl Lactate 1.3 (0.7-2.1) mmol/L Vent Mode Prvc Mechanical Rate 18 FiO2 80.0 % Tidal Volume 450 PEEP 8 Potassium (3.6-5.2) mmol/L Carbon Dioxide (22-30) mmol/L Anion Gap (10-20) BUN (9-20) mg/dL Creatinine (0.8-1.5) mg/dL Est GFR ( Amer) Est GFR (Non-Af Amer) POC Glucose (mg/dL) 103 (65-110) mg/dL Random Glucose (75-110) mg/dL Calcium (8.6-10.4) mg/dl Phosphorus (2.5-4.5) mg/dL Magnesium (1.6-2.3) mg/dL Total Bilirubin (0.2-1.3) mg/dL AST (17-59) U/L ALT (21-72) U/L Alkaline Phosphatase (38-126) U/L Total Protein (6.3-8.3) g/dL Albumin (3.5-5.0) g/dL Globulin (2.2-3.9) gm/dL Albumin/Globulin Ratio (1.0-2.1) Arterial Blood Potassium 4.0 (3.6-5.2) mmol/L Fluid Source Pleural Fluid Appearance Bloody (CLEAR) Fluid WBC 02089.0 H (0.0-300.0) /mm3 Fluid RBC 129825.0 H (0.0-0.0) /mm3 Fluid Tot Cell Count 100 H (0-0) Fluid Neutrophils 72.0 H (0-0) % Fluid Lymphocytes 20.0 H (0-0) % Fld Monocyte/Macrophag 8 H (0-0) % Fluid Comment Blood Type Antibody Screen 04/24/18 04/24/18 Range/Units 16:12 08:25 WBC 18.6 H (4.8-10.8) K/uL RBC 3.86 L (4.40-5.90) Mil/uL Hgb 11.3 L (12.0-18.0) g/dL Hct 34.6 L (35.0-51.0) % MCV 89.8 (80.0-94.0) fL MCH 29.2 (27.0-31.0) pg MCHC 32.5 L (33.0-37.0) g/dL RDW 14.4 (11.5-14.5) % Plt Count 578 H D (130-400) K/uL MPV 8.8 (7.2-11.7) fL Neut % (Auto) 91.2 H (50.0-75.0) % Lymph % (Auto) 2.8 L (20.0-40.0) % [place] % (Auto) 5.0 (0.0-10.0) % Eos % (Auto) 0.1 (0.0-4.0) % Baso % (Auto) 0.9 (0.0-2.0) % Neut # (Auto) 17.0 H (1.8-7.0) K/uL Lymph # (Auto) 0.5 L (1.0-4.3) K/uL [place] # (Auto) 0.9 H (0.0-0.8) K/uL Eos # (Auto) 0.0 (0.0-0.7) K/uL Baso # (Auto) 0.2 (0.0-0.2) K/uL Neutrophils % (Manual) 78 H (50-75) % Band Neutrophils % 13 H* (0-2) % Lymphocytes % (Manual) 3 L (20-40) % Monocytes % (Manual) 6 (0-10) % Eosinophils % (Manual) (0-4) % Basophils % (Manual) (0-2) % Platelet Estimate Normal (NORMAL) Large Platelets Present Hypochromasia (manual) Slight Anisocytosis (manual) Microcytosis (manual) Slight Puncture Site pCO2 (35-45) mm/Hg pO2 (80-100) mm/Hg HCO3 (21-28) mmol/L ABG pH (7.35-7.45) ABG Total CO2 (22-28) mmol/L ABG O2 Saturation (95-98) % ABG Base Excess (-2.0-3.0) mmol/L ABG Hemoglobin (11.7-17.4) g/dL ABG Carboxyhemoglobin (0.5-1.5) % POC ABG HHb (Measured) (0.0-5.0) % ABG Methemoglobin (0.0-3.0) % [place] Test ABG Potassium (3.6-5.2) mmol/L A-a O2 Difference mm/Hg Respiratory Index Hgb O2 Saturation (95.0-98.0) % Sodium (132-148) mmol/l Chloride (98-107) mmol/L Glucose (75-110) mg/dl Lactate (0.7-2.1) mmol/L Vent Mode Mechanical Rate FiO2 % Tidal Volume PEEP Potassium (3.6-5.2) mmol/L Carbon Dioxide (22-30) mmol/L Anion Gap (10-20) BUN (9-20) mg/dL Creatinine (0.8-1.5) mg/dL Est GFR ( Amer) Est GFR (Non-Af Amer) POC Glucose (mg/dL) (65-110) mg/dL Random Glucose (75-110) mg/dL Calcium (8.6-10.4) mg/dl Phosphorus (2.5-4.5) mg/dL Magnesium (1.6-2.3) mg/dL Total Bilirubin (0.2-1.3) mg/dL AST (17-59) U/L ALT (21-72) U/L Alkaline Phosphatase (38-126) U/L Total Protein (6.3-8.3) g/dL Albumin (3.5-5.0) g/dL Globulin (2.2-3.9) gm/dL Albumin/Globulin Ratio (1.0-2.1) Arterial Blood Potassium (3.6-5.2) mmol/L Fluid Source Fluid Appearance (CLEAR) Fluid WBC (0.0-300.0) /mm3 Fluid RBC (0.0-0.0) /mm3 Fluid Tot Cell Count (0-0) Fluid Neutrophils (0-0) % Fluid Lymphocytes (0-0) % Fld Monocyte/Macrophag (0-0) % Fluid Comment Blood Type O POSITIVE Antibody Screen Negative Laboratory Results - last 24 hr 04/24/18 04/24/18 04/24/18 08:25 16:12 17:35 WBC 18.6 H RBC 3.86 L Hgb 11.3 L Hct 34.6 L MCV 89.8 MCH 29.2 MCHC 32.5 L RDW 14.4 Plt Count 578 H D MPV 8.8 Neut % (Auto) 91.2 H Lymph % (Auto) 2.8 L [place] % (Auto) 5.0 Eos % (Auto) 0.1 Baso % (Auto) 0.9 Neut # (Auto) 17.0 H Lymph # (Auto) 0.5 L [place] # (Auto) 0.9 H Eos # (Auto) 0.0 Baso # (Auto) 0.2 Neutrophils % (Manual) 78 H Band Neutrophils % 13 H* Lymphocytes % (Manual) 3 L Monocytes % (Manual) 6 Eosinophils % (Manual) Basophils % (Manual) Platelet Estimate Normal Large Platelets Present Hypochromasia (manual) Slight Anisocytosis (manual) Microcytosis (manual) Slight Puncture Site Lra pCO2 41 pO2 75 L HCO3 24.7 ABG pH 7.39 ABG Total CO2 26.1 ABG O2 Saturation 97.5 ABG Base Excess -0.2 ABG Hemoglobin ABG Carboxyhemoglobin POC ABG HHb (Measured) ABG Methemoglobin [place] Test Pos ABG Potassium 4.0 A-a O2 Difference 444.0 Respiratory Index 5.9 Hgb O2 Saturation Sodium 141.0 Chloride 111.0 H Glucose 99 Lactate 1.3 Vent Mode Prvc Mechanical Rate 18 FiO2 80.0 Tidal Volume 450 PEEP 8 Potassium Carbon Dioxide Anion Gap BUN Creatinine Est GFR ( Amer) Est GFR (Non-Af Amer) POC Glucose (mg/dL) Random Glucose Calcium Phosphorus Magnesium Total Bilirubin AST ALT Alkaline Phosphatase Total Protein Albumin Globulin Albumin/Globulin Ratio Arterial Blood Potassium 4.0 Fluid Source Fluid Appearance Fluid WBC Fluid RBC Fluid Tot Cell Count Fluid Neutrophils Fluid Lymphocytes Fld Monocyte/Macrophag Fluid Comment Blood Type O POSITIVE Antibody Screen Negative 04/24/18 04/24/18 04/25/18 18:07 19:10 04:15 WBC RBC Hgb Hct MCV MCH MCHC RDW Plt Count MPV Neut % (Auto) Lymph % (Auto) [place] % (Auto) Eos % (Auto) Baso % (Auto) Neut # (Auto) Lymph # (Auto) [place] # (Auto) Eos # (Auto) Baso # (Auto) Neutrophils % (Manual) Band Neutrophils % Lymphocytes % (Manual) Monocytes % (Manual) Eosinophils % (Manual) Basophils % (Manual) Platelet Estimate Large Platelets Hypochromasia (manual) Anisocytosis (manual) Microcytosis (manual) Puncture Site Lb pCO2 43 pO2 77 L HCO3 28.4 H ABG pH 7.44 ABG Total CO2 30.5 H ABG O2 Saturation 98.0 ABG Base Excess 4.5 H ABG Hemoglobin 11.1 L ABG Carboxyhemoglobin 2.2 H POC ABG HHb (Measured) 1.9 ABG Methemoglobin 0.9 [place] Test Na ABG Potassium A-a O2 Difference 424.0 Respiratory Index 4.8 Hgb O2 Saturation 95.0 Sodium Chloride Glucose Lactate Vent Mode Prvc Mechanical Rate 18 FiO2 80.0 Tidal Volume 450 PEEP 8 Potassium Carbon Dioxide Anion Gap BUN Creatinine Est GFR ( Amer) Est GFR (Non-Af Amer) POC Glucose (mg/dL) 103 Random Glucose Calcium Phosphorus Magnesium Total Bilirubin AST ALT Alkaline Phosphatase Total Protein Albumin Globulin Albumin/Globulin Ratio Arterial Blood Potassium Fluid Source Pleural Fluid Appearance Bloody Fluid WBC 92976.0 H Fluid RBC 887901.0 H Fluid Tot Cell Count 100 H Fluid Neutrophils 72.0 H Fluid Lymphocytes 20.0 H Fld Monocyte/Macrophag 8 H Fluid Comment Blood Type Antibody Screen 04/25/18 04/25/18 06:22 06:22 WBC 10.0 RBC 3.70 L Hgb 11.2 L Hct 32.8 L MCV 88.7 MCH 30.2 MCHC 34.1 RDW 14.7 H Plt Count 448 H D MPV 9.1 Neut % (Auto) 85.0 H Lymph % (Auto) 7.6 L [place] % (Auto) 5.7 Eos % (Auto) 0.4 Baso % (Auto) 1.3 Neut # (Auto) 8.5 H Lymph # (Auto) 0.8 L [place] # (Auto) 0.6 Eos # (Auto) 0.0 Baso # (Auto) 0.1 Neutrophils % (Manual) 78 H Band Neutrophils % 12 H* Lymphocytes % (Manual) 4 L Monocytes % (Manual) 3 Eosinophils % (Manual) 1 Basophils % (Manual) 2 Platelet Estimate Slightly increased H Large Platelets Hypochromasia (manual) Anisocytosis (manual) Slight Microcytosis (manual) Puncture Site pCO2 pO2 HCO3 ABG pH ABG Total CO2 ABG O2 Saturation ABG Base Excess ABG Hemoglobin ABG Carboxyhemoglobin POC ABG HHb (Measured) ABG Methemoglobin [place] Test ABG Potassium A-a O2 Difference Respiratory Index Hgb O2 Saturation Sodium 139 Chloride 107 Glucose Lactate Vent Mode Mechanical Rate FiO2 Tidal Volume PEEP Potassium 3.9 Carbon Dioxide 30 Anion Gap 6 L BUN 19 Creatinine 0.6 L Est GFR ( Amer) > 60 Est GFR (Non-Af Amer) > 60 POC Glucose (mg/dL) Random Glucose 102 Calcium 7.7 L Phosphorus 4.0 Magnesium 1.9 Total Bilirubin 1.1 AST 58 ALT 39 Alkaline Phosphatase 168 H D Total Protein 6.2 L Albumin 2.2 L Globulin 4.0 H Albumin/Globulin Ratio 0.5 L Arterial Blood Potassium Fluid Source Fluid Appearance Fluid WBC Fluid RBC Fluid Tot Cell Count Fluid Neutrophils Fluid Lymphocytes Fld Monocyte/Macrophag Fluid Comment Blood Type Antibody Screen Radiology Impressions: Radiology Impressions Chest X-Ray 04/24/18 16:00 IMPRESSION: Two right chest tubes. Trace right pneumothorax. Probable moderate right pleural effusion. Lines and tubes unchanged Chest X-Ray 04/25/18 07:00 IMPRESSION: Postop changes are slowly resolving at the right hemithorax as post decortication previously. Tubes and catheters unchanged in position with right basilar atelectasis favored over infiltrate. Mild right pleural effusion is noted including the minor fissure. Limited left perihilar patchy density noted. Clinical and radiographic follow-up advised. Review of Systems - Review of Systems Systems not reviewed;Unavailable: Intubated Critical Care Progress Note - Nutrition Nutrition: Nutrition Category Date Time Status NPO Diet [DIET] Diets 04/16/18 Breakfast Active Assessment/Plan (1) Community acquired pneumonia Assessment and plan: 43yo M. PMHx of alcohol abuse. p/w abdominal pain secondary to constipation and community acquired pneumonia. Thoracentesis (05/16), empyema. Intubated for worsening respiratory failure with hypoxia and delirium tremens (05/16). Chest tube placed (04/18). Bronchoscopy (04/19). Thoracotomy with pleurectomy, decortication and debridement with two chest tubes placed (04/24). Neuro: pain controlled with fentanyl gtt, will wean off precedex gtt. Pulm: acute respiratory failure with hypoxia secondary to CAP with empyema. s/p thoracotomy with pleurectomy, decortication and debridement with two chest tubes placed. Fio2 requirements still high. CV: hemodynamically stable. Hem: leucocytosis from sepsis Renal: diuresing for hypervolemia with lasix. Endo: no acute issues GI: NPO, Jevity@40 ID: severe sepsis from CAP with empyema, continue meropenem, Vancomycin and clindamycin. DVT proph - lovenox, SCD's GI proph - protonix roman for strict I/O's during acute illness Code status - full code Critical Care Time spent 35 minutes Multi-disciplinary rounds were performed with house staff, nursing, speech therapy, respiratory therapy, pharmacy and nutrition with integrated input from the primary team/attending and other consulting services. The documented time is cumulative and includes review of patient data/exams/labs/chart review and examination of the patient on rounds and throughout the day; time is exclusive of any procedures or teaching time. Current Visit: Yes Status: Acute
--- NOTE | 2018-04-25 15:37 | CP.PCM.PN ---
Subjective - Date & Time of Evaluation Date of Evaluation: 04/25/18 Time of Evaluation: 14:50 - Subjective Subjective: dictated Objective - Vital Signs/Intake and Output Vital Signs (last 24 hours): Temp Pulse Resp BP Pulse Ox 101.9 F H 96 H 29 H 95/56 L 98 04/25/18 10:00 04/25/18 14:01 04/25/18 14:01 04/25/18 14:01 04/25/18 14:01 Intake and Output: 04/25/18 04/25/18 06:59 18:59 Intake Total 3288.8 1529.2 Output Total 935 410 Balance 2353.8 1119.2 - Medications Medications: Current Medications Albuterol/Ipratropium (Duoneb 3 Mg/0.5 Mg (3 Ml) Ud) 3 ml INH RQ6 JESUS Last Admin: 04/25/18 13:48 Dose: 3 ml Docusate Sodium (Colace) 100 mg PO TID JESUS Last Admin: 04/25/18 10:05 Dose: 100 mg Enoxaparin Sodium (Lovenox) 100 mg SC Q12 JESUS Last Admin: 04/23/18 10:25 Dose: 100 mg Folic Acid (Folic Acid) 1 mg PO DAILY JESUS Last Admin: 04/25/18 10:09 Dose: 1 mg Furosemide (Lasix) 40 mg IVP Q12H JESUS Last Admin: 04/25/18 12:35 Dose: 40 mg Meropenem 1 gm/ Sodium (Chloride) 100 mls @ 100 mls/hr IVPB Q8H JESUS; Protocol Last Admin: 04/25/18 12:30 Dose: 100 mls/hr Clindamycin Phosphate 900 mg/ (Sodium Chloride) 106 mls @ 100 mls/hr IV Q8H JESUS; Protocol Last Admin: 04/25/18 06:30 Dose: 100 mls/hr Fentanyl Citrate 2,500 mcg/ (Sodium Chloride) 250 mls @ 19.92 mls/hr IV .[id number] JESUS; Protocol Last Admin: 04/25/18 06:30 Dose: 2.45 mcg/kg/hr, 24.4 mls/hr Vancomycin HCl 1,500 mg/ (Sodium Chloride) 500 mls @ 200 mls/hr IVPB Q12H JESUS; Protocol Last Admin: 04/25/18 14:34 Dose: 200 mls/hr Dexmedetomidine HCl 200 mcg/ (Sodium Chloride) 50 mls @ 14.9 mls/hr IV TITR PRN; Protocol PRN Reason: Agitation Last Titration: 04/25/18 14:33 Dose: 0.8 mcg/kg/hr, 19.87 mls/hr Gentamicin Sulfate/Sodium Chloride (Gentamicin 80mg/100ml Ns) 80 mg in 100 mls @ 100 mls/hr IVPB Q8H JESUS; Protocol Last Admin: 04/25/18 09:44 Dose: 100 mls/hr Micafungin Sodium 100 mg/ (Sodium Chloride) 100 mls @ 100 mls/hr IV Q24H JESUS; Protocol Last Admin: 04/24/18 19:36 Dose: 100 mls/hr Ibuprofen (Motrin Tab) 400 mg PO Q6H PRN PRN Reason: fever Last Admin: 04/25/18 11:42 Dose: 400 mg Lactobacillus Acidophilus (Bacid Acidophilus) 1 cap PO BID [facility] Last Admin: 04/25/18 11:03 Dose: 1 cap Multivitamins (Hexavitamin) 1 tab PO DAILY [facility] Last Admin: 04/25/18 10:09 Dose: 1 tab Pantoprazole Sodium (Protonix Inj) 40 mg IVP DAILY [facility] Last Admin: 04/25/18 10:09 Dose: 40 mg Sennosides (Senokot Tab) 8.6 mg PO BID [facility] Last Admin: 04/25/18 10:09 Dose: 8.6 mg Thiamine HCl (Vitamin B1 Tab) 100 mg PO DAILY [facility] Last Admin: 04/25/18 10:09 Dose: 100 mg - Labs Labs: 04/25/18 06:22 04/25/18 06:22 PT 13.7 SECONDS (9.7-12.2) H 04/24/18 06:26 INR 1.3 04/24/18 06:26 APTT 42 SECONDS (21-34) H 04/24/18 06:26
[2018-04-25] MEDS: Amikacin 500 MG in Dextrose 5% In Water 100 ML IVPB SCH (17:25)
[2018-04-25] MEDS: Micafungin 100 MG in Sodium Chloride 0.9% 100 ML IV SCH (19:21)
--- NOTE | 2018-04-25 20:17 | PN ---
DATE: 04/25/2018 SUBJECTIVE: The patient is intubated. He had a surgical procedure yesterday and the procedure was done by Dr. Meza and he had caseous fibrinous exudate in pleural space, entrapped lung, hematoma. Postop diagnosis was right lung empyema. Operation performed was right thoracotomy, decortication of the right lung, drainage of right lung infection and exudate, right middle and inferior lobe biopsy and right-sided chest tube placement; these are the procedures. He lost around 500 mL of blood. He is still spiking temperature. He did get lactulose at this time as he was constipated according to the nurse and T-max is 101.9. He has a cooling blanket. He had a fever of more than 102 before. He is awake otherwise. He is on multiple antibiotics. PHYSICAL EXAMINATION: VITAL SIGNS: He is on ventilator with 80% oxygen on PEEP. His blood pressure is 86/51 right now, respirations are 22 and pulse remains 92. HEENT: Head is atraumatic, normocephalic. CHEST: He has a chest tube on the right side. LUNGS: Decreased breath sounds on right lung, otherwise he is on a ventilator; opening his eyes. Denies pain. HEART: S1, S2. Regular. ABDOMEN: Soft, nontender. No guarding, no rigidity present. EXTREMITIES: Have foot protectors. LABORATORY DATA: Labs are noted. Labs show white count is 10, hemoglobin 11.2, hematocrit 32.8, platelet count is 448. His white count as well as platelets have improved. Neutrophils are 78. However, he remains with 12 bands, and so we will continue with present antibiotics. The patient had a chest x-ray done today which shows postop changes, slowly resolving right hemithorax, status post decortication previously, tubes and catheters are unchanged in position with right basilar atelectasis favored over infiltrate. Mild right pleural effusion is noted including the monophasic limited left perihilar patchy density noted. IMPRESSION AND PLAN: He is postoperative. The patient is having fever still and we will need to monitor him. I would continue with the vancomycin, clindamycin and he is on Merrem and micafungin at this time. Actually, at this time, I would leave the gentamicin also intact as he is still having fevers. The tissue cultures are negative at 24 hours and there are four of them from the operating room, will need to be followed. We did blood cultures on 04/21/2018. The central line is a new one I am told. We will follow. Renea Spring MD
[2018-04-26] MEDS: Midazolam 50 mg/10 ml 100 MG in Dextrose 5% In Water 80 ML IV SCH ×2 (00:26→21:27)
[2018-04-26] MEDS: Albuterol-Ipratrop 3 mg / 0.5 (3 ml) UD INH SCH ×4 (01:23→19:17)
[2018-04-26] MEDS: Meropenem 1 GM in Sodium Chloride 0.9% 100 ML IVPB SCH ×4 (04:00→21:18)
[2018-04-26] MEDS: Amikacin 500 MG in Dextrose 5% In Water 100 ML IVPB SCH ×2 (05:16→17:41)
[2018-04-26 05:27] LABS: ABG ALLEN TEST POS; ARTERIAL BLOOD GAS HCO3 30.3 mmol/L (21-28); ARTERIAL BLOOD GAS HEMOGLOBIN 9.4 g/dL (11.7-17.4); ARTERIAL BLOOD GAS O2 SAT 99.8 % (95-98); ARTERIAL BLOOD GAS PCO2 47 mm/Hg (35-45); ARTERIAL BLOOD GAS PH 7.44 (7.35-7.45); ARTERIAL BLOOD GAS PO2 126 mm/Hg (80-100); ARTERIAL BLOOD GAS TCO2 33.3 mmol/L (22-28)
[2018-04-26 06:36] LABS: HEMOGLOBIN 10.1 g/dL (12.0-18.0); MEAN CELL VOLUME 89.4 fL (80.0-94.0); MEAN CORPUSCULAR HEMOGLOBIN 29.8 pg (27.0-31.0); MEAN CORPUSCULAR HGB CONC 33.3 g/dL (33.0-37.0); RBC 3.4 Mil/uL (4.40-5.90); RED CELL DISTRIBUTION WIDTH 14.4 % (11.5-14.5); WHITE BLOOD COUNT 10.3 K/uL (4.8-10.8)
[2018-04-26 06:53] LABS: ALB/GLOB RATIO 0.6 (1.0-2.1); ALBUMIN 2.2 g/dL (3.5-5.0); ALT/SGPT 54 U/L (21-72); AST/SGOT 85 U/L (17-59); BLOOD UREA NITROGEN 13 mg/dL (9-20); CALCIUM 7.4 mg/dl (8.6-10.4); GFR NON-AFRICAN AMERICAN > 60
--- NOTE | 2018-04-26 07:38 | CP.PCM.PN ---
Subjective - Date & Time of Evaluation Date of Evaluation: 04/26/18 Time of Evaluation: 07:38 - Subjective Subjective: Thoracic Surgeyr Dr. Meza Pt S&E @bedside. No acute events over night. intubated and sedated. Switched to Versed/Fentanyl gtt overnight and precedex d/c'ed 2/ continued fevers. Pt comfortable this AM. answering yes/no questions. Ab.44, 47, 30.3, 126, 6.9, 99.8 on 450/18/8/80% Ant RCT 340cc x24hrs Post RCT 180cc x24hrs Objective - Vital Signs/Intake and Output Vital Signs (last 24 hours): Temp Pulse Resp BP Pulse Ox 99.5 F 113 H 17 96/72 L 98 04/26/18 06:00 04/26/18 06:01 04/26/18 06:01 04/26/18 06:01 04/26/18 06:01 Intake and Output: 04/26/18 04/26/18 06:59 18:59 Intake Total 923.9 Output Total 1720 Balance -796.1 - Medications Medications: Current Medications Albuterol/Ipratropium (Duoneb 3 Mg/0.5 Mg (3 Ml) Ud) 3 ml INH RQ6 [facility] Last Admin: 04/26/18 01:23 Dose: 3 ml Docusate Sodium (Colace) 100 mg PO TID [facility] Last Admin: 04/25/18 17:24 Dose: 100 mg Enoxaparin Sodium (Lovenox) 100 mg SC Q12 [facility] Last Admin: 04/23/18 10:25 Dose: 100 mg Folic Acid (Folic Acid) 1 mg PO DAILY [facility] Last Admin: 04/25/18 10:09 Dose: 1 mg Furosemide (Lasix) 40 mg IVP Q12H [facility] Last Admin: 04/26/18 01:29 Dose: 40 mg Meropenem 1 gm/ Sodium (Chloride) 100 mls @ 100 mls/hr IVPB Q8H [facility]; Protocol Last Admin: 04/26/18 04:00 Dose: 100 mls/hr Clindamycin Phosphate 900 mg/ (Sodium Chloride) 106 mls @ 100 mls/hr IV Q8H [facility]; Protocol Last Admin: 04/25/18 22:41 Dose: 100 mls/hr Fentanyl Citrate 2,500 mcg/ (Sodium Chloride) 250 mls @ 19.92 mls/hr IV .[id number] [facility]; Protocol Last Admin: 04/26/18 05:19 Dose: Not Given Vancomycin HCl 1,500 mg/ (Sodium Chloride) 500 mls @ 200 mls/hr IVPB Q12H [facility]; Protocol Last Admin: 04/26/18 02:31 Dose: 200 mls/hr Micafungin Sodium 100 mg/ (Sodium Chloride) 100 mls @ 100 mls/hr IV Q24H [facility]; Protocol Last Admin: 04/25/18 19:21 Dose: 100 mls/hr Amikacin Sulfate 500 mg/ (Dextrose) 102 mls @ 204 mls/hr IVPB Q12H [facility]; Protocol Last Admin: 04/26/18 05:16 Dose: 204 mls/hr Midazolam HCl 100 mg/ Dextrose 100 mls @ 1.9 mls/hr IV .Q24H [facility]; Protocol Last Admin: 04/26/18 00:26 Dose: 0.02 mg/kg/hr, 1.9 mls/hr Ibuprofen (Motrin Tab) 400 mg PO Q6H PRN PRN Reason: fever Last Admin: 04/25/18 22:14 Dose: 400 mg Lactobacillus Acidophilus (Bacid Acidophilus) 1 cap PO BID [facility] Last Admin: 04/25/18 17:25 Dose: 1 cap Multivitamins (Hexavitamin) 1 tab PO DAILY [facility] Last Admin: 04/25/18 10:09 Dose: 1 tab Pantoprazole Sodium (Protonix Inj) 40 mg IVP DAILY [facility] Last Admin: 04/25/18 10:09 Dose: 40 mg Sennosides (Senokot Tab) 8.6 mg PO BID [facility] Last Admin: 04/25/18 17:24 Dose: 8.6 mg Thiamine HCl (Vitamin B1 Tab) 100 mg PO DAILY [facility] Last Admin: 04/25/18 10:09 Dose: 100 mg - Labs Labs: 04/26/18 06:32 04/26/18 06:32 PT 13.7 SECONDS (9.7-12.2) H 04/24/18 06:26 INR 1.3 04/24/18 06:26 APTT 42 SECONDS (21-34) H 04/24/18 06:26 - Constitutional Appears: Non-toxic, No Acute Distress - Head Exam Head Exam: NORMAL INSPECTION - Eye Exam Eye Exam: Normal appearance - ENT Exam ENT Exam: Mucous Membranes Moist Additional comments: ETT and OGT in place - Respiratory Exam Respiratory Exam: NORMAL BREATHING PATTERN (mechanical ventilation). absent: Respiratory Distress Additional comments: RCT x2 in place, on suction, no leak. serosang drainage dressing c/d/i - Cardiovascular Exam Cardiovascular Exam: Tachycardia, REGULAR RHYTHM - GI/Abdominal Exam GI & Abdominal Exam: Soft. absent: Distended, Tenderness - Exam Additional comments: roman in place - Neurological Exam Neurological Exam: Alert, Awake - Psychiatric Exam Additional comments: unable to assess - Skin Skin Exam: Dry, Normal Color, Warm Assessment and Plan - Assessment and Plan (Free Text) Assessment: 43 y/o M POD#2 s/p right thoracotomy, decortication, RML/RLL Bx, Chest tube x2 Plan: - f/u pathology and cultures - cont IV Abx per ID - monitor chest tube output - cont tubes to sxn - daily CXR - wean sedation as tolerated - wean vent dependence per ICU Pt discussed w/ Dr. Susana Pollock DO PGY3
[2018-04-26] MEDS: Potassium Chloride 20 mEq/15 ml LIQ UD PO SCH ×2 (08:02→12:00)
--- NOTE | 2018-04-26 08:52 | CP.PCM.PN ---
Subjective - Date & Time of Evaluation Date of Evaluation: 04/26/18 Time of Evaluation: 08:30 - Subjective Subjective: Medical attending Patient seen, examined. Patient is postoperative day 2 of thoracotomy and decortication of the right side along secondary to empyema. Had noted chest tube outputs 04/14/1939 respectively over 24 hours. Patient did have significant bowel movement overnight per discussion with nursing staff. Patient is awake and alert. Patient is on Versed and fentanyl drip at this time. Patient T-max of 102.7 as of 8 PM last night patient currently at bedside has no fever. Patient able to follow-up hands. Patient does not know any pain likely secondary to drips. Will need to follow-up with ICU in terms of restarting ther apeutic Lovenox for cephalic DVTs. Patient remains intubated with an FiO2 requirement of 80. Postoperative management and weaning protocol per ICU and cardiothoracic surgery. No family present at bedside. Objective - Vital Signs/Intake and Output Vital Signs (last 24 hours): Temp Pulse Resp BP Pulse Ox 99.5 F 110 H 22 116/62 96 04/26/18 06:00 04/26/18 08:00 04/26/18 08:00 04/26/18 08:00 04/26/18 08:00 Intake and Output: 04/26/18 04/26/18 06:59 18:59 Intake Total 1092.2 41.7 Output Total 1720 Balance -627.8 41.7 - Medications Medications: Current Medications Albuterol/Ipratropium (Duoneb 3 Mg/0.5 Mg (3 Ml) Ud) 3 ml INH RQ6 [facility] Last Admin: 04/26/18 08:12 Dose: 3 ml Docusate Sodium (Colace) 100 mg PO TID [facility] Last Admin: 04/25/18 17:24 Dose: 100 mg Enoxaparin Sodium (Lovenox) 100 mg SC Q12 [facility] Last Admin: 04/23/18 10:25 Dose: 100 mg Folic Acid (Folic Acid) 1 mg PO DAILY [facility] Last Admin: 04/25/18 10:09 Dose: 1 mg Furosemide (Lasix) 40 mg IVP Q12H [facility] Last Admin: 04/26/18 01:29 Dose: 40 mg Meropenem 1 gm/ Sodium (Chloride) 100 mls @ 100 mls/hr IVPB Q8H [facility]; Protocol Last Admin: 04/26/18 04:00 Dose: 100 mls/hr Clindamycin Phosphate 900 mg/ (Sodium Chloride) 106 mls @ 100 mls/hr IV Q8H [facility]; Protocol Last Admin: 04/26/18 07:08 Dose: 100 mls/hr Fentanyl Citrate 2,500 mcg/ (Sodium Chloride) 250 mls @ 19.92 mls/hr IV .[id number] [facility]; Protocol Last Admin: 04/26/18 05:19 Dose: Not Given Vancomycin HCl 1,500 mg/ (Sodium Chloride) 500 mls @ 200 mls/hr IVPB Q12H [facility]; Protocol Last Admin: 04/26/18 02:31 Dose: 200 mls/hr Micafungin Sodium 100 mg/ (Sodium Chloride) 100 mls @ 100 mls/hr IV Q24H [facility]; Protocol Last Admin: 04/25/18 19:21 Dose: 100 mls/hr Amikacin Sulfate 500 mg/ (Dextrose) 102 mls @ 204 mls/hr IVPB Q12H [facility]; Protocol Last Admin: 04/26/18 05:16 Dose: 204 mls/hr Midazolam HCl 100 mg/ Dextrose 100 mls @ 1.9 mls/hr IV .Q24H [facility]; Protocol Last Admin: 04/26/18 00:26 Dose: 0.02 mg/kg/hr, 1.9 mls/hr Ibuprofen (Motrin Tab) 400 mg PO Q6H PRN PRN Reason: fever Last Admin: 04/26/18 08:01 Dose: 400 mg Lactobacillus Acidophilus (Bacid Acidophilus) 1 cap PO BID [facility] Last Admin: 04/25/18 17:25 Dose: 1 cap Multivitamins (Hexavitamin) 1 tab PO DAILY [facility] Last Admin: 04/25/18 10:09 Dose: 1 tab Pantoprazole Sodium (Protonix Inj) 40 mg IVP DAILY [facility] Last Admin: 04/25/18 10:09 Dose: 40 mg Potassium Chloride (Potassium Chloride Oral Soln) 40 meq PO Q4 [facility] Stop: 04/26/18 12:01 Last Admin: 04/26/18 08:02 Dose: 40 meq Sennosides (Senokot Tab) 8.6 mg PO BID [facility] Last Admin: 02/02/19 17:24 Dose: 8.6 mg Thiamine HCl (Vitamin B1 Tab) 100 mg PO DAILY [facility] Last Admin: 04/25/18 10:09 Dose: 100 mg - Labs Labs: 04/26/18 06:32 04/26/18 06:32 PT 13.7 SECONDS (9.7-12.2) H 04/24/18 06:26 INR 1.3 04/24/18 06:26 APTT 42 SECONDS (21-34) H 04/24/18 06:26 - Constitutional Appears: Non-toxic, No Acute Distress - Head Exam Head Exam: NORMAL INSPECTION - Eye Exam Eye Exam: Conjunctival injection Pupil Exam: NORMAL ACCOMODATION - ENT Exam ENT Exam: Mucous Membranes Moist - Respiratory Exam Respiratory Exam: Decreased Breath Sounds, Rhonchi Additional comments: intubated, on vent, right (lateral and posterior) on chest TLC over right side - Cardiovascular Exam Cardiovascular Exam: Tachycardia, +S1, +S2 - GI/Abdominal Exam GI & Abdominal Exam: Soft, Normal Bowel Sounds. absent: Distended, Firm, Guarding, Rigid, Tenderness, Rebound - Extremities Exam Extremities Exam: Joint Swelling (trace), Pedal Edema Additional comments: prevalon boots b/l - Neurological Exam Neurological Exam: Alert, Awake Neuro motor strength exam: Left Upper Extremity: 5, Right Upper Extremity: 5, Left Lower Extremity: 5, Right Lower Extremity: 5 - Psychiatric Exam Psychiatric exam: Normal Affect, Normal Mood - Skin Skin Exam: Dry, Normal Color, Warm Assessment and Plan (1) Acute respiratory failure Status: Acute (2) Aspiration pneumonia Status: Acute (3) Delirium tremens Status: Acute (4) Constipation Status: Acute (5) Empyema Status: Acute (6) Alcohol abuse Status: Acute (7) Deep vein thrombosis of upper extremity Status: Acute Attending/Attestation - Attestation I have personally seen and examined this patient.: Yes I have fully participated in the care of the patient.: Yes I have reviewed all pertinent clinical information, including history, physical exam and plan: Yes Notes (Text): Patient is postoperative day 2. Patient's T-max was 102.7 at 2/218 at 8PM. Presently no fever. Therapeutic Lovenox held prior to the OR; treatment for cephalic DVTs. Patient's white count has normalized. Patient's hemoglobin 10 Reactive thrombocytosis. No bands this morning ABG noted while patient remains intubated with high FiO2 requirement (80). Lung culture (04/24) from the OR prelim shows no growth after 24 hours x2 pleural fluid from the OR showing no growth after 24 hours x2. Patient has 2 chest tubes (anterior and posterior) over the right side. over 24 hours: Chest tube (posterior: 290) and Chest tube (lateral: 150). Patient had bowel movement over night 04/25/18. Assessment/Plan 1). Sepsis Secondary to Right Middle and Lower Lobe Pneumonia and Suspected Empyema * Infectious Disease (Dr. Spring) on case * Cardiothoracic Surgery Dr. Meza: Chest tube placed 04/18/18 and pleural fluid culture will have to be followed up * Post operative note April 24, 2018. Patient underwent a right thoracotomy, decortication of the right lung, drainage of the right lung infection/exudates, right middle inferior lobe biopsy performed, right-sided chest tube placement x2. Specimen noted portion of the middle lobe of the rig ht lobe, portion of the lower lobe on right lung, right lung fluid/hematoma. * 04/24/18 Tissue Culture: No growth after 24 hours * 04/24/18 Pleural Fluid: no growth after 24 hours * 04/24/18 Lung: No growth after 24 hours * 04/24/18 Lung: No growth after 24 hours * Leukocytosis, fever, pneumonia/empyema * CT chest from Apr 15, 2018. Cardiomegaly. Trace pericardial effusion. Coronary artery calcifications. Extensive consolidation throughout the right hemithorax with relative sparing of the right lung apex. Small loculated right-sided pleural effusion measuring approximately 2.1 cm in maximum depth superinfection is not excluded. Mild left basal bibasilar atelectasis. Left hemithorax. Otherwise grossly clear. Limited visualization of the upper abdomen reveals hepatomegaly. Diffuse hepatic steatosis with 2 more focal hypodense regions favored to represent focal fatty infiltration. * CT chest from Apr 17 was suboptimal. No evidence of central pulmonary embolus. Interval worsening of airspace consolidation at the right lung contains foci of low-attenuation possible fluid collection since prior study interval worsening of the right-sided multiple likely request for sacral pleural effusion. * CT chest from 04/20/2018 noted for decreased right pleural effusion. Right chest tube. Extensive right lower lobe atelectasis with right middle lobe and left lower lobe segmental atelectasis. Small left pleural effusion. No pneumothorax. Endotracheal tube and nasogastric tube noted. * Chest xray (04/25/18): postop changes are slowly resolving at the right hemithorax as post decorticulation previously. Tube and catheters unchanged in position with right basilar atectasis favored over infiltrate. Mild right pleural effusion is noted including the minor fissue. Limited left perihilar opacity density noted. * Azithromycin and Rocephin were discontinued on 04/15/18 * Zosyn 3.375 gm IV Q6H (04/15/18 through 04/16/18) * Tamiflu 75 mg PO 2x/day (04/14/18 through 04/19/18) * Gentamicin 80mg IV Q12H (active 04/21/18-04/25/18) Current IV Abx: * Clindamycin 900 mg IV Q8H (04/16/18) * Vancomycin 1.25 gm IV Q12H (04/15/18) dose adjusted to Vancomycin 1500gm IV Q12H (active since 04/21/18) * Check random vancomycin level * Amikacin 500mg IVPB Q12H (active since 04/25/18) * Meropenem 1 gm IV Q8H (04/16/18) * Micafungin 100mg IV Q24H (active since 04/23/18) * Blood Culture 04/13/18: is negative to date * Blood culture 04/21/18: negative. * Urine culture: 04/21/18 * Pleural fluid (04/18/18): no anaerobes isolated. Fungal culture--prelim * Pleural fluid (04/18/18): no growth. * Bronchial Washings: 04/19/18: Normal saphrophytic john paul, fungal culture-prelim * Myocbacterial Culture--Prelim:pending * Procalcitonin: 1.64 * s/p OR (04/24/18)-->bx of lung taken, removal of purulent material from right lung. Anterior and posterior chest tubes. 1 units given in OR of PRBC; 2 units post RBC 2). Acute Respiratory Failure secondary to Pneumonia/Empyema * Patient was intubated and placed on vent on evening 04/15/18 after he started to have DTs * Patient remains on Vent, intubated, high FiO2 * Currently on Fentanyl and Versed; off Propofol 04/24/18 off Precdex * Patient switched from Precedex to Versed to rule out contributing factor to fever (R Patrick note in nursing note 04/25/18) 3). Alcohol Withdrawal DTs * Currently on Fentanyl and Versed * MVI tab PO daily * Vitamin B1 tab PO daily * Folic Acid 1 tab PO daily 4). Bilateral Perinephric Stranding (resolved) As seen on CT Abdomen/Pelvis * On exam 04/14/18 and 04/15/18 there was NO CVA tenderness * UA shows NEGATIVE Nitrate, Ketones, and LE * Repeat urine cultures are negative * Patient has roman 5). Alcohol Abuse * Patient revealed 04/14/18 that he drank shots and multiple beers twice a week but told overnight team at time of admission that he did this 5x per week. * Last drink was this past Friday04/10/18 as per patient * MVI tab PO daily * Vitamin B1 tab PO daily * Folic Acid 1 tab PO daily 6). Hyponatremia (resolved) * Likely SIADH * TSH and T4 are normal * Morning Cortisol normal * Triglycerides normal * Urine Osm was high * Urine Na was 35 7). Tachycardia * Postoperative 2 from cardiothoracic surgery 8). Elevated LFTs and Hepatic Parenchymal Disease (as seen CT Abdomen) Likely secondary to suspected alcohol abuse * Hepatitis Panel negative * HIV negative * UDS negative * On CT scan noted hepatomegaly * uptrending mildly 9). Hypokalemia * monitor and replete 10). Hypomagnesemia * monitor and replete 11). Constipation * As seen on Obstruction Series * Senokot * Colace 100 mg PO 3x/day * Had bowel movement 04/15/18 * Patient to get an enema 04/21/18--> had bowel movement 04/22/18 * Patient distended on exam yesterday; improved had significant bowel movement 04/25/18 per nursing 12) Cephalic DVTS * Patient is on therapeutic lovenox 100mg subq12 Hr held prior to OR 04/23/18 * Will need to f/u ICU when to restart 13). Prophylaxis * DVT risk score of 2 based upon Age and diagnosis of Sepsis: lovenox 40mg subqdaily Bilateral SCDs * As patient was intubated 04/15/18, Protonix 40 mg IV 1x/day * Jevity via OGT started at 20 ml/hr with goal of 45 ml/hr * Lactobacillus PO 2x/day * Therapuetic Lovenox held 04/23/18 * TLC placed on 04/22/18 Updates: 04/16/18: Mary was at bedside and he she was updated on patient's recent developements and status with the help of ICU residen Dr. Severino Tate 04/17/18: Two Sisters, Cousin, Nephew were at bedside and he she was updated on patient's recent developements and status with the help of ICU residen Dr. Severino Tate 04/18/18: with the help of brother in law Carson (who speaks Japanese) family members included Mary, were udated as to patient status 04/19/18: Two Sisters at the bedside were updated with the help of PATRICIA Moreno who translated Qatari 04/20/18: spoke with and sister at bedside 04/21/18: no family present at bedside 04/22/18: I was present at bedside with cardiothoracic surgeon, ICU resident Janay Martin as well as will need a thoracic surgery explained that patient would need a decortication/VATS planned for this Friday. Given patient's empyema and not improving status. is aware that the surgery carries greater risk and that the and depending on the nature of the surgery will ultimately affect pat ient's ability to be extubated. She is aware that we hope for good outcomes however she does understand it does carry a high mortality. Dr. Tate at bedside translating on behalf of chronic cardiothoracic surgeon as well. 04/24/17: spoke with at bedside. Patient seen postoperative: in pain. off propofol. pending official operative note. 04/25/18: Spoke with family at bedside; patient is status post 3 units PRBC. Follow-up cultures. Disposition: postoperative management and weaning per cardiothoracic and ICU; f/u cultures from OR. Patient is on 3 antibiotics and antifungal per ID.
--- NOTE | 2018-04-26 09:28 | RAD ---
Date of service: 04/26/2018 HISTORY: ETT COMPARISON: Portable chest 04/25/2018 FINDINGS: LUNGS: Endotracheal, nasogastric and 2 right-sided chest tubes are unchanged in position as well as right central venous line. Mild right pleural effusion again identified with limited atelectasis or infiltrate at the right perihilar/medial basilar region. Diminishing left perihilar patchy density. PLEURA: No significant pleural effusion identified, no pneumothorax apparent. CARDIOVASCULAR: No aortic atherosclerotic calcification present. Normal cardiac size. No pulmonary vascular congestion. OSSEOUS STRUCTURES: No significant abnormalities. VISUALIZED UPPER ABDOMEN: Normal. OTHER FINDINGS: None. IMPRESSION: Missing limited left perihilar infiltrate with no interval change in right-sided infiltrate and limited right pleural effusion. Tubes and catheters as discussed above. No pulmonary vascular congestion apparent.
[2018-04-26] MEDS: Lactobacillus Acidophilus 500 MU Cap PO SCH ×2 (10:00→17:41)
[2018-04-26] MEDS: Multiple Vitamins Tab PO SCH (10:01)
--- NOTE | 2018-04-26 15:14 | CP.PCM.PN ---
Subjective - Date & Time of Evaluation Date of Evaluation: 04/26/18 Time of Evaluation: 15:05 - Subjective Subjective: No events, patient in pain off and on, able to communicate on the vent as well. Objective - Vital Signs/Intake and Output Vital Signs (last 24 hours): Temp Pulse Resp BP Pulse Ox 99.2 F 102 H 10 L 129/75 99 04/26/18 12:00 04/26/18 13:01 04/26/18 13:01 04/26/18 13:01 04/26/18 13:01 Intake and Output: 04/26/18 04/26/18 06:59 18:59 Intake Total 1092.2 919.0 Output Total 1720 670 Balance -627.8 249.0 - Medications Medications: Current Medications Albuterol/Ipratropium (Duoneb 3 Mg/0.5 Mg (3 Ml) Ud) 3 ml INH RQ6 [facility] Last Admin: 04/26/18 13:28 Dose: 3 ml Docusate Sodium (Colace) 100 mg PO TID [facility] Last Admin: 04/26/18 14:14 Dose: 100 mg Enoxaparin Sodium (Lovenox) 100 mg SC Q12 [facility] Last Admin: 04/23/18 10:25 Dose: 100 mg Folic Acid (Folic Acid) 1 mg PO DAILY [facility] Last Admin: 04/26/18 10:00 Dose: 1 mg Meropenem 1 gm/ Sodium (Chloride) 100 mls @ 100 mls/hr IVPB Q8H [facility]; Protocol Last Admin: 04/26/18 12:23 Dose: 100 mls/hr Clindamycin Phosphate 900 mg/ (Sodium Chloride) 106 mls @ 100 mls/hr IV Q8H [facility]; Protocol Last Admin: 04/26/18 07:08 Dose: 100 mls/hr Fentanyl Citrate 2,500 mcg/ (Sodium Chloride) 250 mls @ 19.92 mls/hr IV .[id number] [facility]; Protocol Last Titration: 04/26/18 14:58 Dose: 3.5 mcg/kg/hr, 34.9 mls/hr Vancomycin HCl 1,500 mg/ (Sodium Chloride) 500 mls @ 200 mls/hr IVPB Q12H [facility]; Protocol Last Admin: 04/26/18 14:13 Dose: 200 mls/hr Micafungin Sodium 100 mg/ (Sodium Chloride) 100 mls @ 100 mls/hr IV Q24H [facility]; Protocol Last Admin: 04/25/18 19:21 Dose: 100 mls/hr Amikacin Sulfate 500 mg/ (Dextrose) 102 mls @ 204 mls/hr IVPB Q12H [facility]; Protocol Last Admin: 04/26/18 05:16 Dose: 204 mls/hr Midazolam HCl 100 mg/ Dextrose 100 mls @ 1.9 mls/hr IV .Q24H [facility]; Protocol Last Admin: 04/26/18 00:26 Dose: 0.02 mg/kg/hr, 1.9 mls/hr Ibuprofen (Motrin Tab) 400 mg PO Q6H PRN PRN Reason: fever Last Admin: 04/26/18 08:01 Dose: 400 mg Lactobacillus Acidophilus (Bacid Acidophilus) 1 cap PO BID [facility] Last Admin: 04/26/18 10:00 Dose: 1 cap Multivitamins (Hexavitamin) 1 tab PO DAILY [facility] Last Admin: 04/26/18 10:01 Dose: 1 tab Pantoprazole Sodium (Protonix Inj) 40 mg IVP DAILY [facility] Last Admin: 04/26/18 10:00 Dose: 40 mg Sennosides (Senokot Tab) 8.6 mg PO BID [facility] Last Admin: 04/26/18 10:01 Dose: 8.6 mg Thiamine HCl (Vitamin B1 Tab) 100 mg PO DAILY [facility] Last Admin: 04/26/18 10:00 Dose: 100 mg - Labs Labs: 04/26/18 06:32 04/26/18 06:32 PT 13.7 SECONDS (9.7-12.2) H 04/24/18 06:26 INR 1.3 04/24/18 06:26 APTT 42 SECONDS (21-34) H 04/24/18 06:26 - Additional Findings Additional findings: * HEENT JEANNIE * Neck supple * CVS regular, no gallop or rub * Chest right side 2 chest tubes, draining serous and serosanguinous fluid * PA soft * Ext no edema * Skin turgor low * DENTURE WAXER awake oriented x3 no fnd * Assessment and Plan - Assessment and Plan (Free Text) Assessment: * PNA and para pneumonic effusion * s/p chest tube, thoracotomy, decortication * H/o alcoholism, clinically not withdrawing currently * Patient is clinically dry, will hold on lasix, potassium replaced, may give fluid if bp on the lower side. * Cephalic vein dvt recently Plan: * Supportive care with vent, slowly reduce the fio2 * Monitor chest tube fluid for bleeding/oozing, hemoglobin * Broad spectum coverage * Pain control with versed, fentynl * anticoagulation on hold as has serosanguinous, will have surgical input as well for same, s/p 3 prbc yesterday
[2018-04-26] MEDS: Micafungin 100 MG in Sodium Chloride 0.9% 100 ML IV SCH (18:32)
[2018-04-27] MEDS: Albuterol-Ipratrop 3 mg / 0.5 (3 ml) UD INH SCH ×4 (02:20→19:39)
[2018-04-27] MEDS: Meropenem 1 GM in Sodium Chloride 0.9% 100 ML IVPB SCH ×3 (04:39→21:19)
[2018-04-27 05:43] LABS: ABG ALLEN TEST POS; ARTERIAL BLOOD GAS HCO3 30.8 mmol/L (21-28); ARTERIAL BLOOD GAS HEMOGLOBIN 9.6 g/dL (11.7-17.4); ARTERIAL BLOOD GAS O2 SAT 98.1 % (95-98); ARTERIAL BLOOD GAS PCO2 48 mm/Hg (35-45); ARTERIAL BLOOD GAS PH 7.44 (7.35-7.45); ARTERIAL BLOOD GAS PO2 77 mm/Hg (80-100); ARTERIAL BLOOD GAS TCO2 34.1 mmol/L (22-28)
[2018-04-27 06:02] LABS: BASO # 0.1 K/uL (0.0-0.2); BASO % 0.9 % (0.0-2.0); EOS # 0.2 K/uL (0.0-0.7); EOS % 1.8 % (0.0-4.0); HEMOGLOBIN 9.2 g/dL (12.0-18.0); LYMPH # 0.8 K/uL (1.0-4.3); LYMPH % 8.9 % (20.0-40.0); MEAN CELL VOLUME 90.3 fL (80.0-94.0); MEAN CORPUSCULAR HEMOGLOBIN 29.9 pg (27.0-31.0); MEAN CORPUSCULAR HGB CONC 33.1 g/dL (33.0-37.0); MEAN PLATELET VOLUME 8.9 fL (7.2-11.7); MONO # 0.7 K/uL (0.0-0.8); MONO % 7.9 % (0.0-10.0); NEUT # 6.8 K/uL (1.8-7.0); NEUT % 80.5 % (50.0-75.0); PLATELET COUNT 450 K/uL (130-400); RBC 3.08 Mil/uL (4.40-5.90); RED CELL DISTRIBUTION WIDTH 14.4 % (11.5-14.5); WHITE BLOOD COUNT 8.4 K/uL (4.8-10.8)
[2018-04-27] MEDS: Amikacin 500 MG in Dextrose 5% In Water 100 ML IVPB SCH ×2 (06:14→17:35)
[2018-04-27 06:36] LABS: ALB/GLOB RATIO 0.5 (1.0-2.1); ALBUMIN 2.1 g/dL (3.5-5.0); ALT/SGPT 72 U/L (21-72); AST/SGOT 102 U/L (17-59); BLOOD UREA NITROGEN 13 mg/dL (9-20); CALCIUM 7.7 mg/dl (8.6-10.4); GFR NON-AFRICAN AMERICAN > 60
--- NOTE | 2018-04-27 07:40 | CP.PCM.PN ---
Subjective - Date & Time of Evaluation Date of Evaluation: 04/27/18 Time of Evaluation: 07:36 - Subjective Subjective: SURGERY NOTE FOR DR. MITCHELL 43M seen and examined at bedside. Patient intubated and on light sedation. Pain is under control, fever overnight of 101.6. Objective - Vital Signs/Intake and Output Vital Signs (last 24 hours): Temp Pulse Resp BP Pulse Ox 99.6 F 109 H 19 116/56 L 97 04/27/18 04:00 04/27/18 07:01 04/27/18 07:01 04/27/18 07:01 04/27/18 07:01 Intake and Output: 04/27/18 04/27/18 06:59 18:59 Intake Total 2091.6 81.8 Output Total 690 Balance 1401.6 81.8 - Medications Medications: Current Medications Albuterol/Ipratropium (Duoneb 3 Mg/0.5 Mg (3 Ml) Ud) 3 ml INH RQ6 [facility] Last Admin: 04/27/18 02:20 Dose: 3 ml Docusate Sodium (Colace) 100 mg PO TID [facility] Last Admin: 04/26/18 17:41 Dose: 100 mg Enoxaparin Sodium (Lovenox) 100 mg SC Q12 [facility] Last Admin: 04/23/18 10:25 Dose: 100 mg Folic Acid (Folic Acid) 1 mg PO DAILY [facility] Last Admin: 04/26/18 10:00 Dose: 1 mg Meropenem 1 gm/ Sodium (Chloride) 100 mls @ 100 mls/hr IVPB Q8H [facility]; Protocol Last Admin: 04/27/18 04:39 Dose: 100 mls/hr Fentanyl Citrate 2,500 mcg/ (Sodium Chloride) 250 mls @ 19.92 mls/hr IV .[id number] [facility]; Protocol Last Admin: 04/27/18 06:23 Dose: Not Given Vancomycin HCl 1,500 mg/ (Sodium Chloride) 500 mls @ 200 mls/hr IVPB Q12H [facility]; Protocol Last Admin: 04/27/18 02:14 Dose: 200 mls/hr Micafungin Sodium 100 mg/ (Sodium Chloride) 100 mls @ 100 mls/hr IV Q24H [facility]; Protocol Last Admin: 04/26/18 18:32 Dose: 100 mls/hr Amikacin Sulfate 500 mg/ (Dextrose) 102 mls @ 204 mls/hr IVPB Q12H [facility]; Protocol Last Admin: 04/27/18 06:14 Dose: 204 mls/hr Midazolam HCl 100 mg/ Dextrose 100 mls @ 1.9 mls/hr IV .Q24H [facility]; Protocol Last Admin: 04/26/18 21:27 Dose: Not Given Ibuprofen (Motrin Tab) 400 mg PO Q6H PRN PRN Reason: fever Last Admin: 04/27/18 00:27 Dose: 400 mg Lactobacillus Acidophilus (Bacid Acidophilus) 1 cap PO BID [facility] Last Admin: 04/26/18 17:41 Dose: 1 cap Multivitamins (Hexavitamin) 1 tab PO DAILY [facility] Last Admin: 04/26/18 10:01 Dose: 1 tab Pantoprazole Sodium (Protonix Inj) 40 mg IVP DAILY [facility] Last Admin: 04/26/18 10:00 Dose: 40 mg Sennosides (Senokot Tab) 8.6 mg PO BID [facility] Last Admin: 04/26/18 17:41 Dose: 8.6 mg Thiamine HCl (Vitamin B1 Tab) 100 mg PO DAILY [facility] Last Admin: 04/26/18 10:00 Dose: 100 mg - Labs Labs: 04/27/18 05:52 04/27/18 05:52 PT 13.7 SECONDS (9.7-12.2) H 04/24/18 06:26 INR 1.3 04/24/18 06:26 APTT 42 SECONDS (21-34) H 04/24/18 06:26 - Constitutional Appears: Non-toxic, No Acute Distress - Respiratory Exam Respiratory Exam: NORMAL BREATHING PATTERN Additional comments: right chest tubes in place - anterior- 110cc in 24hrs - posterior - 200cc in 24hrs serosanguinous outputs, no air leak - Cardiovascular Exam Cardiovascular Exam: REGULAR RHYTHM, +S1, +S2 - GI/Abdominal Exam GI & Abdominal Exam: Soft. absent: Distended, Firm, Guarding, Rigid, Tenderness, Rebound Assessment and Plan - Assessment and Plan (Free Text) Assessment: 43M s/p right thoracotomy, with decortication, lung biopsy and chest tubes*2 POD#3 Plan: - ICU management - daily dressing changes - monitor chest tube outputs - daily chest x-rays Further recs discuss with Dr. Melvina Hernandez, PGY3
[2018-04-27 08:20] LABS: BASOPHIL 1 % (0-2); LYMPHOCYTE 13 % (20-40); MONOCYTE 6 % (0-10); NEUTROPHIL 80 % (50-75); PLATELET ESTIMATE NORMAL (NORMAL); TOTAL CELLS COUNTED 100
[2018-04-27 08:21] LABS: ANISOCYTOSIS SLIGHT; HYPOCHROMIC SLIGHT; POIKILOCYTOSIS SLIGHT
--- NOTE | 2018-04-27 08:45 | CP.PCM.PN ---
Subjective - Date & Time of Evaluation Date of Evaluation: 04/27/18 Time of Evaluation: 08:30 - Subjective Subjective: Hospitalist Progress Note Patient was seen and examined at 8:30 AM ICU Bed 6 04/27/18 S/P Thoracotomy Right 04/24/18 with Chest Tube x 2 placement Blood Culture 04/25/18 is negative to date Lung Tissue Culture 04/24/18 is negative to date Pleural Fluid Culture 04/24/18 is negative to date Continues with fevers with last at midnight last night at 101.6 F. HgB/Hct are stable and patient is S/P 3 Units PRBC over the weekend. Spoke with ICU resident Dr. Severino Tate to discuss with ICU attending during rounds as to when therapeutic Lovenox 100 mg SC Q12H can be restarted for the bilateral Cephalic Vein DVTs General: Intubated on Vent with OGT. Asleep but easily arousable and following commands. HEENT: NCA, Pupils are pinpoint/equal/reactive to light, NO lymphadenopathy, NO thyromegaly Cardio: NS1 and NS2, NO M/R/G Resp: Course breath sounds diffusely GI: BSx4, Soft, Central Obesity Ext: NO edema, Capillary Refill is 2 seconds, Pulses are strong and equal Neuro: not possible at this time Please see Assessment and Plans below for summary of care Assessment/Plan 1). Sepsis Secondary to Right Middle and Lower Lobe Pneumonia and Suspected Empyema * Infectious Disease (Dr. Spring) on case * Cardiothoracic Surgery Dr. Meza: Chest tube placed 04/18/18 and pleural fluid culture will have to be followed up * Post operative note April 24, 2018. Patient underwent a right thoracotomy, decortication of the right lung, drainage of the right lung infection/exudates, right middle inferior lobe biopsy performed, right-sided chest tube placement x2. Specimen noted portion of the middle lobe of the right lobe, portion of the lower lobe on right lung, right lung fluid/hematoma. * 04/24/18 Tissue Culture: No growth after 24 hours * 04/24/18 Pleural Fluid: no growth after 24 hours * 04/24/18 Lung: No growth after 24 hours * 04/24/18 Lung: No growth after 24 hours * Leukocytosis, fever, pneumonia/empyema * CT chest from Apr 15, 2018. Cardiomegaly. Trace pericardial effusion. Coronary artery calcifications. Extensive consolidation throughout the right hemithorax with relative sparing of the right lung apex. Small loculated right-sided pleural effusion measuring approximately 2.1 cm in maximum depth superinfection is not excluded. Mild left basal bibasilar atelectasis. Left hemithorax. Otherwise grossly clear. Limited visualization of the upper abdomen reveals hepatomegaly. Diffuse hepatic steatosis with 2 more focal hypodense regions favored to represent focal fatty infiltration. * CT chest from Apr 17 was suboptimal. No evidence of central pulmonary embolus. Interval worsening of airspace consolidation at the right lung contains foci of low-attenuation possible fluid collection since prior study interval worsening of the right-sided multiple likely request for sacral pleural effusion. * CT chest from 04/20/2018 noted for decreased right pleural effusion. Right chest tube. Extensive right lower lobe atelectasis with right middle lobe and left lower lobe segmental atelectasis. Small left pleural effusion. No pneumothorax. Endotracheal tube and nasogastric tube noted. * Chest xray (04/25/18): postop changes are slowly resolving at the right hemithorax as post decorticulation previously. Tube and catheters unchanged in position with right basilar atectasis favored over infiltrate. Mild right pleural effusion is noted including the minor fissue. Limited left perihilar opacity density noted. * Azithromycin and Rocephin were discontinued on 04/15/18 * Zosyn 3.375 gm IV Q6H (04/15/18 through 04/16/18) * Tamiflu 75 mg PO 2x/day (04/14/18 through 04/19/18) * Gentamicin 80mg IV Q12H (active 04/21/18-04/25/18) Current IV Abx: * Clindamycin 900 mg IV Q8H (04/16/18) * Vancomycin 1.25 gm IV Q12H (04/15/18) dose adjusted to Vancomycin 1500gm IV Q12H (active since 04/21/18) * Check random vancomycin level * Amikacin 500mg IVPB Q12H (active since 04/25/18) * Meropenem 1 gm IV Q8H (04/16/18) * Micafungin 100mg IV Q24H (active since 04/23/18) * Blood Culture 04/13/18: is negative to date * Blood culture 04/21/18: negative. * Urine culture: 04/21/18 * Pleural fluid (04/18/18): no anaerobes isolated. Fungal culture--prelim * Pleural fluid (04/18/18): no growth. * Bronchial Washings: 04/19/18: Normal saphrophytic john paul, fungal culture-prelim * Myocbacterial Culture--Prelim:pending * Procalcitonin: 1.64 * s/p OR (04/24/18)-->bx of lung taken, removal of purulent material from right lung. Anterior and posterior chest tubes. 1 units given in OR of PRBC; 2 units post RBC 2). Acute Respiratory Failure secondary to Pneumonia/Empyema * Patient was intubated and placed on vent on evening 04/15/18 after he started to have DTs * Patient remains on Vent, intubated, high FiO2 * Currently on Fentanyl and Versed; off Propofol 04/24/18 off Precdex * Patient switched from Precedex to Versed to rule out contributing factor to fever (R Patrick note in nursing note 04/25/18) 3). Alcohol Withdrawal DTs * Currently on Fentanyl and Versed * MVI tab PO daily * Vitamin B1 tab PO daily * Folic Acid 1 tab PO daily 4). Bilateral Perinephric Stranding (resolved) As seen on CT Abdomen/Pelvis * On exam 04/14/18 and 04/15/18 there was NO CVA tenderness * UA shows NEGATIVE Nitrate, Ketones, and LE * Repeat urine cultures are negative * Patient has roman 5). Alcohol Abuse * Patient revealed 04/14/18 that he drank shots and multiple beers twice a week but told overnight team at time of admission that he did this 5x per week. * Last drink was this past Friday04/10/18 as per patient * MVI tab PO daily * Vitamin B1 tab PO daily * Folic Acid 1 tab PO daily 6). Hyponatremia (resolved) * Likely SIADH * TSH and T4 are normal * Morning Cortisol normal * Triglycerides normal * Urine Osm was high * Urine Na was 35 7). Tachycardia * Postoperative 2 from cardiothoracic surgery 8). Elevated LFTs and Hepatic Parenchymal Disease (as seen CT Abdomen) Likely secondary to suspected alcohol abuse * Hepatitis Panel negative * HIV negative * UDS negative * On CT scan noted hepatomegaly * uptrending mildly 9). Hypokalemia * monitor and replete 10). Hypomagnesemia * monitor and replete 11). Constipation * As seen on Obstruction Series * Senokot * Colace 100 mg PO 3x/day * Had bowel movement 04/15/18 * Patient to get an enema 04/21/18--> had bowel movement 04/22/18 * Patient distended on exam yesterday; improved had significant bowel movement 04/25/18 per nursing 12) Cephalic DVTS * Patient is on therapeutic lovenox 100mg subq12 Hr held prior to OR 04/23/18 * Will need to f/u ICU when to restart 13). Prophylaxis * DVT risk score of 2 based upon Age and diagnosis of Sepsis: lovenox 40mg subqdaily Bilateral SCDs * As patient was intubated 04/15/18, Protonix 40 mg IV 1x/day * Jevity via OGT started at 20 ml/hr with goal of 45 ml/hr * Lactobacillus PO 2x/day * Therapuetic Lovenox held 04/23/18 * TLC placed on 04/22/18 Updates: 04/16/18: Mary was at bedside and he she was updated on patient's recent developements and status with the help of ICU residen Dr. Severino Tate 04/17/18: Two Sisters, Cousin, Nephew were at bedside and he she was updated on patient's recent developements and status with the help of ICU residen Dr. Severino Tate 04/18/18: with the help of brother in law Carson (who speaks Chinese) family members included Mary, were udated as to patient status 04/19/18: Two Sisters at the bedside were updated with the help of PATRICIA Moreno who translated Turkish 04/20/18: spoke with and sister at bedside 04/21/18: no family present at bedside 04/22/18: I was present at bedside with cardiothoracic surgeon, ICU resident Janay Martin as well as will need a thoracic surgery explained that patient would need a decortication/VATS planned for this Friday. Given patient's empyema and not improving status. is aware that the surgery carries greater risk and that the and depending on the nature of the surgery will ultimately affect patient's ability to be extubated. She is aware that we hope for good outcomes however she does understand it does carry a high mortality. Dr. Tate at bedside translating on behalf of chronic cardiothoracic surgeon as well. 04/24/17: spoke with at bedside. Patient seen postoperative: in pain. off propofol. pending official operative note. 04/25/18: Spoke with family at bedside; patient is status post 3 units PRBC. Follow-up cultures. 04/27/18: NO family at bedside Franki Nguyen D.O. Objective - Vital Signs/Intake and Output Vital Signs (last 24 hours): Temp Pulse Resp BP Pulse Ox 99.6 F 109 H 19 116/56 L 97 04/27/18 04:00 04/27/18 07:01 04/27/18 07:01 04/27/18 07:01 04/27/18 07:01 Intake and Output: 04/27/18 04/27/18 06:59 18:59 Intake Total 2091.6 81.8 Output Total 690 Balance 1401.6 81.8 - Medications Medications: Current Medications Albuterol/Ipratropium (Duoneb 3 Mg/0.5 Mg (3 Ml) Ud) 3 ml INH RQ6 [facility] Last Admin: 04/27/18 08:42 Dose: 3 ml Docusate Sodium (Colace) 100 mg PO TID [facility] Last Admin: 04/26/18 17:41 Dose: 100 mg Enoxaparin Sodium (Lovenox) 100 mg SC Q12 [facility] Last Admin: 04/23/18 10:25 Dose: 100 mg Folic Acid (Folic Acid) 1 mg PO DAILY [facility] Last Admin: 04/26/18 10:00 Dose: 1 mg Meropenem 1 gm/ Sodium (Chloride) 100 mls @ 100 mls/hr IVPB Q8H [facility]; Protocol Last Admin: 04/27/18 04:39 Dose: 100 mls/hr Fentanyl Citrate 2,500 mcg/ (Sodium Chloride) 250 mls @ 19.92 mls/hr IV .[id number] [facility]; Protocol Last Admin: 04/27/18 06:23 Dose: Not Given Vancomycin HCl 1,500 mg/ (Sodium Chloride) 500 mls @ 200 mls/hr IVPB Q12H [facility]; Protocol Last Admin: 04/27/18 02:14 Dose: 200 mls/hr Micafungin Sodium 100 mg/ (Sodium Chloride) 100 mls @ 100 mls/hr IV Q24H [facility]; Protocol Last Admin: 04/26/18 18:32 Dose: 100 mls/hr Amikacin Sulfate 500 mg/ (Dextrose) 102 mls @ 204 mls/hr IVPB Q12H [facility]; P rotocol Last Admin: 04/27/18 06:14 Dose: 204 mls/hr Midazolam HCl 100 mg/ Dextrose 100 mls @ 1.9 mls/hr IV .Q24H [facility]; Protocol Last Admin: 04/26/18 21:27 Dose: Not Given Ibuprofen (Motrin Tab) 400 mg PO Q6H PRN PRN Reason: fever Last Admin: 04/27/18 00:27 Dose: 400 mg Lactobacillus Acidophilus (Bacid Acidophilus) 1 cap PO BID [facility] Last Admin: 04/26/18 17:41 Dose: 1 cap Multivitamins (Hexavitamin) 1 tab PO DAILY [facility] Last Admin: 04/26/18 10:01 Dose: 1 tab Pantoprazole Sodium (Protonix Inj) 40 mg IVP DAILY [facility] Last Admin: 04/26/18 10:00 Dose: 40 mg Sennosides (Senokot Tab) 8.6 mg PO BID [facility] Last Admin: 04/26/18 17:41 Dose: 8.6 mg Thiamine HCl (Vitamin B1 Tab) 100 mg PO DAILY [facility] Last Admin: 04/26/18 10:00 Dose: 100 mg - Labs Labs: 04/27/18 05:52 04/27/18 05:52 PT 13.7 SECONDS (9.7-12.2) H 04/24/18 06:26 INR 1.3 04/24/18 06:26 APTT 42 SECONDS (21-34) H 04/24/18 06:26
--- NOTE | 2018-04-27 09:37 | RAD ---
Date of service: 04/27/2018 HISTORY: chest tube, vent- f-up COMPARISON: 04/26/2018 FINDINGS: LUNGS: Extensive right basilar opacity. This is due in part to pleural effusion. In addition, suspect right basilar infiltrate. No change from prior. Follow-up advised. No left-sided infiltrate. PLEURA: Moderate right pleural effusion. No left pleural effusion. No pneumothorax. Two right apical chest tubes unchanged in position. Right IJ central venous catheter unchanged. ET tube unchanged. CARDIOVASCULAR: No aortic atherosclerotic calcification present. Mild cardiomegaly, possibly artifactual. No pulmonary vascular congestion. OSSEOUS STRUCTURES: No significant abnormalities. VISUALIZED UPPER ABDOMEN: Normal. OTHER FINDINGS: None. IMPRESSION: Moderate right pleural effusion and right basilar opacity possibly infiltrate. Follow-up advised. Two right chest tubes. No pneumothorax. Additional lines and tubes unchanged.
[2018-04-27] MEDS: Lactobacillus Acidophilus 500 MU Cap PO SCH ×2 (09:40→17:28)
[2018-04-27] MEDS: Multiple Vitamins Tab PO SCH (09:44)
[2018-04-27] MEDS: Enoxaparin 40 mg Syringe SC SCH (10:26)
--- NOTE | 2018-04-27 12:41 | CP.PCM.PN ---
Subjective - Date & Time of Evaluation Date of Evaluation: 04/27/18 Time of Evaluation: 12:36 - Subjective Subjective: POD#3. Remains intubated. Awake and alert. Tmax-101 wbc-8k chest tubes-200/120/ss/no air leak. cxr-right lower lobe atelectasis and cosolidation. a/p: Making slow but satisfactory progress. Conitinue currrent supportive care. Daily labs and cxr. Objective - Vital Signs/Intake and Output Vital Signs (last 24 hours): Temp Pulse Resp BP Pulse Ox 99.6 F 112 H 18 117/59 L 97 04/27/18 04:00 04/27/18 09:01 04/27/18 09:01 04/27/18 09:01 04/27/18 08:01 Intake and Output: 04/27/18 04/27/18 06:59 18:59 Intake Total 2091.6 495.4 Output Total 690 280 Balance 1401.6 215.4 - Medications Medications: Current Medications Albuterol/Ipratropium (Duoneb 3 Mg/0.5 Mg (3 Ml) Ud) 3 ml INH RQ6 [facility] Last Admin: 04/27/18 08:42 Dose: 3 ml Docusate Sodium (Colace) 100 mg PO TID [facility] Last Admin: 04/27/18 09:40 Dose: 100 mg Enoxaparin Sodium (Lovenox) 40 mg SC DAILY [facility] Last Admin: 04/27/18 10:26 Dose: 40 mg Folic Acid (Folic Acid) 1 mg PO DAILY [facility] Last Admin: 04/27/18 09:44 Dose: 1 mg Meropenem 1 gm/ Sodium (Chloride) 100 mls @ 100 mls/hr IVPB Q8H [facility]; Protocol Last Admin: 04/27/18 04:39 Dose: 100 mls/hr Fentanyl Citrate 2,500 mcg/ (Sodium Chloride) 250 mls @ 19.92 mls/hr IV .[id number] [facility]; Protocol Last Admin: 04/27/18 10:20 Dose: 3.5 mcg/kg/hr, 34.9 mls/hr Vancomycin HCl 1,500 mg/ (Sodium Chloride) 500 mls @ 200 mls/hr IVPB Q12H [facility]; Protocol Last Admin: 04/27/18 02:14 Dose: 200 mls/hr Micafungin Sodium 100 mg/ (Sodium Chloride) 100 mls @ 100 mls/hr IV Q24H [facility]; Protocol Last Admin: 04/26/18 18:32 Dose: 100 mls/hr Amikacin Sulfate 500 mg/ (Dextrose) 102 mls @ 204 mls/hr IVPB Q12H [facility]; Protocol Last Admin: 04/27/18 06:14 Dose: 204 mls/hr Midazolam HCl 100 mg/ Dextrose 100 mls @ 1.9 mls/hr IV .Q24H [facility]; Protocol Last Admin: 04/26/18 21:27 Dose: Not Given Ibuprofen (Motrin Tab) 400 mg PO Q6H PRN PRN Reason: fever Last Admin: 04/27/18 09:49 Dose: 400 mg Lactobacillus Acidophilus (Bacid Acidophilus) 1 cap PO BID [facility] Last Admin: 04/27/18 09:40 Dose: 1 cap Multivitamins (Hexavitamin) 1 tab PO DAILY [facility] Last Admin: 04/27/18 09:44 Dose: 1 tab Pantoprazole Sodium (Protonix Inj) 40 mg IVP DAILY [facility] Last Admin: 04/27/18 09:44 Dose: 40 mg Sennosides (Senokot Tab) 8.6 mg PO BID [facility] Last Admin: 04/27/18 09:44 Dose: 8.6 mg Thiamine HCl (Vitamin B1 Tab) 100 mg PO DAILY [facility] Last Admin: 04/27/18 09:45 Dose: 100 mg - Labs Labs: 04/27/18 05:52 04/27/18 05:52 PT 13.7 SECONDS (9.7-12.2) H 04/24/18 06:26 INR 1.3 04/24/18 06:26 APTT 42 SECONDS (21-34) H 04/24/18 06:26
--- NOTE | 2018-04-27 13:12 | CP.CCUPN ---
CCU Subjective - Physician Review Subjective (Free Text): PGY-[address] Altman Service Patient is seen and examined at bedside. Continues to be intubated, but is awake and oriented, patient responds to command. Patient observed having gag reflex, otherwise no other complaints. As per nurse, patient had a temp of 101.6 overnight, temperature came down with ibuprofen and cold baths. Patient extubated himself later in the afternoon, assessed right after event, good cough, oxygenated at 100% with nonrebreather mask, able to say a few words, no complaints by patient. Family at bedside. Critical Care Time Spent (in minutes): 40 CCU Objective - Vital Signs / Intake & Output Intake and Output (Last 8hrs): Intake & Output 04/26/18 04/27/18 04/27/18 22:59 06:59 14:59 Intake Total 1604.4 1664.4 495.4 Output Total 730 475 280 Balance 874.4 1189.4 215.4 Weight 211 lb 12.8 oz Intake: IV 250 250 250 Intake, IV Amount 944.4 994.4 110.4 Medial Port Internal 15.2 15.2 5.7 Jugular Proximal IJ TLC 279.2 279.2 104.7 Right Distal Port 650 700 Internal Jugular Tube Feeding 360 360 135 Other 50 60 Output: Chest Tube Drainage 180 140 Right Lateral Chest 70 50 Right Posterior Chest 110 90 Urine 550 335 280 Urethral (Roman) 550 335 280 Other: # Bowel Movements 0 - Physical Exam Head: Positive for: Atraumatic, Normocephalic Pupils: Positive for: PERRL Extroacular Muscles: Positive for: EOMI Conjunctiva: Positive for: Other (subcnjuctival erythema left eye ) Neck: Positive for: Normal Range of Motion Respiratory/Chest: Positive for: Decreased Breath Sounds (right middle and lower lobes ). Negative for: Respiratory Distress, Accessory Muscle Use Cardiovascular: Positive for: Regular Rate and Rhythm, Normal S1, S2 Abdomen: Positive for: Distention, Normal Bowel Sounds. Negative for: Tenderness Upper Extremity: Positive for: Normal Inspection. Negative for: Cyanosis, Edema Lower Extremity: Positive for: Normal Inspection. Negative for: Edema Neurological: Positive for: Speech Normal Skin: Positive for: Warm, Dry, Normal Color Psychiatric: Positive for: Alert, Oriented x 3, Normal Insight, Normal Concentration - Medications Active Medications: Active Medications Generic Name Dose Route Start Last Admin Trade Name Freq PRN Reason Stop Dose Admin Albuterol/Ipratropium 3 ml 04/15/18 08:00 04/27/18 08:42 Duoneb 3 Mg/0.5 Mg (3 Ml) Ud INH 3 ml RQ6 JESUS Administration Docusate Sodium 100 mg 04/14/18 18:30 04/27/18 09:40 Colace PO 100 mg TID JESUS Administration Enoxaparin Sodium 40 mg 04/27/18 10:00 04/27/18 10:26 Lovenox SC 40 mg DAILY JESUS Administration Folic Acid 1 mg 04/14/18 10:00 04/27/18 09:44 Folic Acid PO 1 mg DAILY JESUS Administration Meropenem 1 gm/ Sodium 100 mls @ 100 mls/hr 04/16/18 21:00 04/27/18 04:39 Chloride IVPB 100 mls/hr Q8H JESUS Administration Protocol Fentanyl Citrate 2,500 mcg/ 250 mls @ 19.92 mls/hr 04/19/18 22:00 04/27/18 1 0:20 Sodium Chloride IV 3.5 mcg/kg/hr .[id number] JESUS 34.9 mls/hr Administration Protocol 2 MCG/KG/HR Vancomycin HCl 1,500 mg/ 500 mls @ 200 mls/hr 04/22/18 03:00 04/27/18 02:14 Sodium Chloride IVPB 200 mls/hr Q12H JESUS Administration Protocol Micafungin Sodium 100 mg/ 100 mls @ 100 mls/hr 04/23/18 18:30 04/26/18 18:32 Sodium Chloride IV 100 mls/hr Q24H JESUS Administration Protocol Amikacin Sulfate 500 mg/ 102 mls @ 204 mls/hr 04/25/18 18:00 04/27/18 06:14 Dextrose IVPB 204 mls/hr Q12H JESUS Administration Protocol Midazolam HCl 100 mg/ Dextrose 100 mls @ 1.9 mls/hr 04/25/18 20:45 04/26/18 21:27 IV Not Given .Q24H JESUS Protocol 0.02 MG/KG/HR Ibuprofen 400 mg 04/19/18 03:31 04/27/18 09:49 Motrin Tab PO 400 mg Q6H PRN Administration fever Lactobacillus Acidophilus 1 cap 04/14/18 18:45 04/27/18 09:40 Bacid Acidophilus PO 1 cap BID JESUS Administration Morphine Sulfate 2 mg 04/27/18 12:55 Morphine IVP Q4 PRN Pain, severe (8-10) Multivitamins 1 tab 04/14/18 10:00 04/27/18 09:44 Hexavitamin PO 1 tab DAILY JESUS Administration Pantoprazole Sodium 40 mg 04/14/18 10:00 04/27/18 09:44 Protonix Inj IVP 40 mg DAILY JESUS Administration Sennosides 8.6 mg 04/14/18 00:15 04/27/18 09:44 Senokot Tab PO 8.6 mg BID JESUS Administration Thiamine HCl 100 mg 04/14/18 10:00 04/27/18 09:45 Vitamin B1 Tab PO 100 mg DAILY JESUS Administration - Patient Studies Lab Studies: Microbiology Studies 04/24/18 Unknown Gram Stain - Final Lung Tissue Culture - Final No Growth 04/24/18 19:10 Gram Stain - Final Pleural Fluid Body Fluid Culture - Preliminary NO GROWTH AFTER 3 DAYS 04/18/18 17:49 Mycobacterial Culture - Preliminary Other: Please Indicate 04/25/18 19:30 Blood Culture - Preliminary Blood-Venous NO GROWTH AFTER 24 HOURS 04/25/18 19:00 Blood Culture - Preliminary Blood-Venous NO GROWTH AFTER 24 HOURS 04/21/18 17:04 Blood Culture - Final Blood NO GROWTH AFTER 5 DAYS Gram Stain - Final TEST NOT PERFORMED 04/21/18 15:00 Blood Culture - Final Blood NO GROWTH AFTER 5 DAYS Gram Stain - Final TEST NOT PERFORMED 04/24/18 Unknown Gram Stain - Final Lung Tissue Culture - Final No Growth 04/24/18 19:10 Gram Stain - Final Other: Please Indicate Tissue Culture - Final No Growth Lab Studies 04/27/18 04/27/18 04/27/18 Range/Units 05:52 05:52 05:35 WBC 8.4 (4.8-10.8) K/uL RBC 3.08 L (4.40-5.90) Mil/uL Hgb 9.2 L (12.0-18.0) g/dL Hct 27.8 L (35.0-51.0) % MCV 90.3 (80.0-94.0) fL MCH 29.9 (27.0-31.0) pg MCHC 33.1 (33.0-37.0) g/dL RDW 14.4 (11.5-14.5) % Plt Count 450 H (130-400) K/uL MPV 8.9 (7.2-11.7) fL Neut % (Auto) 80.5 H (50.0-75.0) % Lymph % (Auto) 8.9 L (20.0-40.0) % Lake % (Auto) 7.9 (0.0-10.0) % Eos % (Auto) 1.8 (0.0-4.0) % Baso % (Auto) 0.9 (0.0-2.0) % Neut # (Auto) 6.8 (1.8-7.0) K/uL Lymph # (Auto) 0.8 L (1.0-4.3) K/uL Lake # (Auto) 0.7 (0.0-0.8) K/uL Eos # (Auto) 0.2 (0.0-0.7) K/uL Baso # (Auto) 0.1 (0.0-0.2) K/uL Neutrophils % (Manual) 80 H (50-75) % Lymphocytes % (Manual) 13 L (20-40) % Monocytes % (Manual) 6 (0-10) % Basophils % (Manual) 1 (0-2) % Platelet Estimate Normal (NORMAL) Hypochromasia (manual) Slight Poikilocytosis (manual Slight Anisocytosis (manual) Slight Puncture Site Rr pCO2 48 H (35-45) mm/Hg pO2 77 L (80-100) mm/Hg HCO3 30.8 H (21-28) mmol/L ABG pH 7.44 (7.35-7.45) ABG Total CO2 34.1 H (22-28) mmol/L ABG O2 Saturation 98.1 H (95-98) % ABG Base Excess 7.5 H (-2.0-3.0) mmol/L ABG Hemoglobin 9.6 L (11.7-17.4) g/dL ABG Carboxyhemoglobin 1.7 H (0.5-1.5) % POC ABG HHb (Measured) 1.9 (0.0-5.0) % ABG Methemoglobin 0.7 (0.0-3.0) % [place] Test Pos A-a O2 Difference 326.0 mm/Hg Respiratory Index 4.2 Hgb O2 Saturation 95.7 (95.0-98.0) % Vent Mode Prvc Mechanical Rate 18 FiO2 65.0 % Tidal Volume 450 PEEP 8 Sodium 140 (132-148) mmol/L Potassium 3.5 L (3.6-5.2) mmol/L Chloride 106 (98-107) mmol/L Carbon Dioxide 34 H (22-30) mmol/L Anion Gap 4 L (10-20) BUN 13 (9-20) mg/dL Creatinine 0.6 L (0.8-1.5) mg/dL Est GFR ( Amer) > 60 Est GFR (Non-Af Amer) > 60 Random Glucose 115 H (75-110) mg/dL Calcium 7.7 L (8.6-10.4) mg/dl Phosphorus 4.5 (2.5-4.5) mg/dL Magnesium 2.1 (1.6-2.3) mg/dL Total Bilirubin 0.5 (0.2-1.3) mg/dL AST 102 H (17-59) U/L ALT 72 D (21-72) U/L Alkaline Phosphatase 128 H (38-126) U/L Total Protein 6.1 L (6.3-8.3) g/dL Albumin 2.1 L (3.5-5.0) g/dL Globulin 4.0 H (2.2-3.9) gm/dL Albumin/Globulin Ratio 0.5 L (1.0-2.1) Laboratory Results - last 24 hr 04/27/18 04/27/18 04/27/18 05:35 05:52 05:52 WBC 8.4 RBC 3.08 L Hgb 9.2 L Hct 27.8 L MCV 90.3 MCH 29.9 MCHC 33.1 RDW 14.4 Plt Count 450 H MPV 8.9 Neut % (Auto) 80.5 H Lymph % (Auto) 8.9 L Lake % (Auto) 7.9 Eos % (Auto) 1.8 Baso % (Auto) 0.9 Neut # (Auto) 6.8 Lymph # (Auto) 0.8 L [place] # (Auto) 0.7 Eos # (Auto) 0.2 Baso # (Auto) 0.1 Neutrophils % (Manual) 80 H Lymphocytes % (Manual) 13 L Monocytes % (Manual) 6 Basophils % (Manual) 1 Platelet Estimate Normal Hypochromasia (manual) Slight Poikilocytosis (manual Slight Anisocytosis (manual) Slight Puncture Site Rr pCO2 48 H pO2 77 L HCO3 30.8 H ABG pH 7.44 ABG Total CO2 34.1 H ABG O2 Saturation 98.1 H ABG Base Excess 7.5 H ABG Hemoglobin 9.6 L ABG Carboxyhemoglobin 1.7 H POC ABG HHb (Measured) 1.9 ABG Methemoglobin 0.7 [place] Test Pos A-a O2 Difference 326.0 Respiratory Index 4.2 Hgb O2 Saturation 95.7 Vent Mode Prvc Mechanical Rate 18 FiO2 65.0 Tidal Volume 450 PEEP 8 Sodium 140 Potassium 3.5 L Chloride 106 Carbon Dioxide 34 H Anion Gap 4 L BUN 13 Creatinine 0.6 L Est GFR ( Amer) > 60 Est GFR (Non-Af Amer) > 60 Random Glucose 115 H Calcium 7.7 L Phosphorus 4.5 Magnesium 2.1 Total Bilirubin 0.5 AST 102 H ALT 72 D Alkaline Phosphatase 128 H Total Protein 6.1 L Albumin 2.1 L Globulin 4.0 H Albumin/Globulin Ratio 0.5 L Radiology Impressions: Radiology Impressions Chest X-Ray 04/27/18 07:00 IMPRESSION: Moderate right pleural effusion and right basilar opacity possibly infiltrate. Follow-up advised. Two right chest tubes. No pneumothorax. Additional lines and tubes unchanged. Critical Care Progress Note - Ventilator Checklist PUD Prophalyxis: Yes DVT Prophylaxis: Yes - Extremities/Vascular Does the Patient have a Central Venous Catheter?: Yes Insertion Site: Internal Jugular Vein Does the Patient have a Roman Catheter?: Yes Does the Patient need a Roman Catheter?: Yes - Prophylaxis GI Prophylaxis GI: PPI - Prophylaxis DVT Prophylaxis DVT: Lovenox - Nutrition Nutrition: Nutrition Category Date Time Status NPO Diet [DIET] Diets 04/16/18 Breakfast Active Assessment/Plan - Assessment and Plan (Free Text) Plan: 43yo M. PMHx of alcohol abuse. p/w abdominal pain secondary to constipation and community acquired pneumonia. Thoracentesis (05/16), empyema. Intubated for worsening respiratory failure with hypoxia and delirium tremens (05/16). Chest tube placed (04/18). Bronchoscopy (04/19). Thoracotomy with pleurectomy, decortication and debridement with two chest tubes placed (04/24). extubated himself on 04/27 on high flow NC at 60% Neuro Alert and Oriented am on versed and fentanyl gtt - d/c due to patient extubation today off precedex Pulm acute respiratory failure with hypoxia secondary to CAP with empyema s/p thoracotomy with pleurectomy, decortication and debridement with two chest tubes placed. Patient self extubated himself his afternoon on high flow O2 at 60% good cough, no stridor, saturating well continue duonebs follow up Dr Meza's recs - CT surgery CV hemodynamically stable b/l DVT on cephalic veins resumed Lovenox 40 SC Qdaily Heme WBC downtrending 8.4 from 10.3 Hemoglobin 9.2 from 10.1 - continue to monitor Renal continue to monitor renal function Endo no acute issues GI NPO, Jevity@40 protonix colace senokot ID severe sepsis from CAP with empyema, amikacin, meropenem, Vancomycin and clindamycin Tmax 101.6 - decreased to 99 after ibuprofen and cold bath Sputum cx - pending follow up bcx - no growth after 24 hours lung tissue cx - no growth pleural fluid - no growth after 3 days MRSA + nares DVT proph - lovenox, SCD's GI proph - protonix For pain - Morphine 2mg IVP Q4 PRN roman for strict I/O's during acute illness Plan discussed with Dr Elma Tate, PGY-1 - Date & Time Date: 04/27/18 Time: 09:00
[2018-04-27] MEDS: Micafungin 100 MG in Sodium Chloride 0.9% 100 ML IV SCH (17:35)
--- NOTE | 2018-04-27 18:39 | CP.PCM.PN ---
Subjective - Date & Time of Evaluation Date of Evaluation: 04/27/18 Time of Evaluation: 15:00 - Subjective Subjective: dictated Objective - Vital Signs/Intake and Output Vital Signs (last 24 hours): Temp Pulse Resp BP Pulse Ox 99.6 F 95 H 22 142/75 98 04/27/18 04:00 04/27/18 17:01 04/27/18 17:01 04/27/18 17:01 04/27/18 17:01 Intake and Output: 04/27/18 04/27/18 06:59 18:59 Intake Total 2091.6 1340.8 Output Total 690 280 Balance 1401.6 1060.8 - Medications Medications: Current Medications Albuterol/Ipratropium (Duoneb 3 Mg/0.5 Mg (3 Ml) Ud) 3 ml INH RQ6 JESUS Last Admin: 04/27/18 14:33 Dose: Not Given Docusate Sodium (Colace) 100 mg PO TID JESUS Last Admin: 04/27/18 17:28 Dose: Not Given Enoxaparin Sodium (Lovenox) 40 mg SC DAILY JESUS Last Admin: 04/27/18 10:26 Dose: 40 mg Folic Acid (Folic Acid) 1 mg PO DAILY JESUS Last Admin: 04/27/18 09:44 Dose: 1 mg Meropenem 1 gm/ Sodium (Chloride) 100 mls @ 100 mls/hr IVPB Q8H JESUS; Protocol Last Admin: 04/27/18 13:44 Dose: 100 mls/hr Fentanyl Citrate 2,500 mcg/ (Sodium Chloride) 250 mls @ 19.92 mls/hr IV .[id number] JESUS; Protocol Last Titration: 04/27/18 13:45 Dose: 0 mcg/kg/hr, 0 mls/hr Vancomycin HCl 1,500 mg/ (Sodium Chloride) 500 mls @ 200 mls/hr IVPB Q12H JESUS; Protocol Last Admin: 04/27/18 16:51 Dose: 200 mls/hr Amikacin Sulfate 500 mg/ (Dextrose) 102 mls @ 204 mls/hr IVPB Q12H JESUS; Protocol Last Admin: 04/27/18 17:35 Dose: 204 mls/hr Midazolam HCl 100 mg/ Dextrose 100 mls @ 1.9 mls/hr IV .Q24H JESUS; Protocol Last Admin: 04/26/18 21:27 Dose: Not Given Ibuprofen (Motrin Tab) 400 mg PO Q6H PRN PRN Reason: fever Last Admin: 04/27/18 09:49 Dose: 400 mg Lactobacillus Acidophilus (Bacid Acidophilus) 1 cap PO BID [facility] Last Admin: 04/27/18 17:28 Dose: Not Given Morphine Sulfate (Morphine) 2 mg IVP Q4 PRN PRN Reason: Pain, severe (8-10) Multivitamins (Hexavitamin) 1 tab PO DAILY [facility] Last Admin: 04/27/18 09:44 Dose: 1 tab Pantoprazole Sodium (Protonix Inj) 40 mg IVP DAILY [facility] Last Admin: 04/27/18 09:44 Dose: 40 mg Sennosides (Senokot Tab) 8.6 mg PO BID [facility] Last Admin: 04/27/18 17:28 Dose: Not Given Thiamine HCl (Vitamin B1 Tab) 100 mg PO DAILY [facility] Last Admin: 04/27/18 09:45 Dose: 100 mg - Labs Labs: 04/27/18 05:52 04/27/18 05:52 PT 13.7 SECONDS (9.7-12.2) H 04/24/18 06:26 INR 1.3 04/24/18 06:26 APTT 42 SECONDS (21-34) H 04/24/18 06:26
[2018-04-27] MEDS: Midazolam 50 mg/10 ml 100 MG in Dextrose 5% In Water 80 ML IV SCH (21:45)
--- NOTE | 2018-04-27 23:34 | PN ---
DATE: 04/27/2018 SUBJECTIVE: The patient self extubated himself today and he was on the high-flow oxygen when I saw him and the respiratory therapist thought it was too early for him to be. He said he had minimal pain. PHYSICAL EXAMINATION: GENERAL: He was awake and alert and able to communicate. VITAL SIGNS: His T-max was 99.6 today, heart rate of 91, blood pressure 101/55, respirations are 22, saturations 97%. HEENT: Head is atraumatic, normocephalic NECK: Supple. LUNGS: There are decreased breath sounds on right base, left was unremarkable. HEART: S1, S2, is regular. ABDOMEN: Soft, nontender. No guarding, no rigidity present. No obesity present. EXTREMITIES: Have foot protectors. He has a right side chest tube which was draining with serosanguineous. LABORATORY DATA: Labs are noted. Labs show white count is 8.4, hemoglobin 9.2, hematocrit 27.8, platelet count is 450. Chemistry showed sodium 140, potassium 3.5, chloride 106, CO2 is 34, BUN is 13, creatinine 0.6. Definitely CO2 has increased this morning. His liver enzymes are, his alk phos is 128, AST is 102. MEDICATIONS: Included folic acid, lactobacillus. He is on meropenem and micafungin, was on amikacin and vancomycin. PLAN: At this time,I want to see his chest x-ray report. Chest x-ray shows moderate right pleural effusion and right basilar opacity, possible infiltrate. Followup advised to right chest tube. No pneumothorax. Additional lines and tubes are unchanged. So at this time, he has two chest tubes. We looked up the culture report. Blood culture x2 from 04/25/2018 is negative. AFB is negative. Tissues did not grow anything. Cultures were negative. Gram stain of the fluid is negative. There are Mycobacterium AFBs are negative. At this time, I am continuing vancomycin, amikacin and Merrem. He is an alcoholic and may have had aspiration pneumonia which was not taken care of and progressed to empyema and is status post surgery now still spiking. We will continue these three and we will hold off on Mycamine at this time as LFTs are slightly increased. We will follow. Renea Spring MD [facility] # [id number]
[2018-04-28] MEDS: Albuterol-Ipratrop 3 mg / 0.5 (3 ml) UD INH SCH ×4 (02:39→19:48)
[2018-04-28] MEDS: Meropenem 1 GM in Sodium Chloride 0.9% 100 ML IVPB SCH ×3 (04:42→20:34)
[2018-04-28] MEDS: Amikacin 500 MG in Dextrose 5% In Water 100 ML IVPB SCH ×2 (06:08→17:01)
[2018-04-28 06:30] LABS: BASO # 0.4 K/uL (0.0-0.2); BASO % 4.3 % (0.0-2.0); EOS # 0.1 K/uL (0.0-0.7); EOS % 0.8 % (0.0-4.0); HEMOGLOBIN 9.2 g/dL (12.0-18.0); LYMPH # 0.8 K/uL (1.0-4.3); LYMPH % 8.3 % (20.0-40.0); MEAN CELL VOLUME 90.3 fL (80.0-94.0); MEAN CORPUSCULAR HEMOGLOBIN 29.8 pg (27.0-31.0); MEAN CORPUSCULAR HGB CONC 33.1 g/dL (33.0-37.0); MEAN PLATELET VOLUME 9.3 fL (7.2-11.7); MONO # 0.8 K/uL (0.0-0.8); MONO % 8.8 % (0.0-10.0); NEUT # 7.4 K/uL (1.8-7.0); NEUT % 77.8 % (50.0-75.0); PLATELET COUNT 479 K/uL (130-400); RBC 3.09 Mil/uL (4.40-5.90); RED CELL DISTRIBUTION WIDTH 14.4 % (11.5-14.5); WHITE BLOOD COUNT 9.4 K/uL (4.8-10.8)
[2018-04-28 07:00] LABS: ALB/GLOB RATIO 0.6 (1.0-2.1); ALBUMIN 2.4 g/dL (3.5-5.0); ALT/SGPT 66 U/L (21-72); AST/SGOT 89 U/L (17-59); BLOOD UREA NITROGEN 10 mg/dL (9-20); CALCIUM 7.6 mg/dl (8.6-10.4); GFR NON-AFRICAN AMERICAN > 60
[2018-04-28 08:38] LABS: ANISOCYTOSIS SLIGHT; BASOPHIL 1 % (0-2); EOSINOPHIL 1 % (0-4); HYPOCHROMIC SLIGHT; LYMPHOCYTE 9 % (20-40); MONOCYTE 9 % (0-10); NEUTROPHIL 80 % (50-75); PLATELET ESTIMATE SLIGHTLY INCREASED (NORMAL); POIKILOCYTOSIS SLIGHT; TOTAL CELLS COUNTED 100
[2018-04-28] MEDS: Enoxaparin 40 mg Syringe SC SCH (09:42)
[2018-04-28] MEDS: Multiple Vitamins Tab PO SCH (09:42)
--- NOTE | 2018-04-28 10:05 | CP.PCM.PN ---
Subjective - Date & Time of Evaluation Date of Evaluation: 04/28/18 Time of Evaluation: 10:02 - Subjective Subjective: SURGERY NOTE FOR DR. HERNANDEZ 43M seen and examined at bedside. Patient extubated and tolerating room air. Pain controlled. Objective - Vital Signs/Intake and Output Vital Signs (last 24 hours): Temp Pulse Resp BP Pulse Ox 100.5 F H 89 29 H 125/68 96 04/28/18 08:00 04/28/18 09:00 04/28/18 09:00 04/28/18 09:01 04/28/18 09:00 Intake and Output: 04/28/18 04/28/18 06:59 18:59 Intake Total 900 0 Output Total 730 Balance 170 0 - Medications Medications: Current Medications Albuterol/Ipratropium (Duoneb 3 Mg/0.5 Mg (3 Ml) Ud) 3 ml INH RQ6 JESUS Last Admin: 04/28/18 02:39 Dose: 3 ml Docusate Sodium (Colace) 100 mg PO TID JESUS Last Admin: 04/28/18 09:42 Dose: 100 mg Enoxaparin Sodium (Lovenox) 40 mg SC DAILY JESUS Last Admin: 04/28/18 09:42 Dose: 40 mg Folic Acid (Folic Acid) 1 mg PO DAILY JESUS Last Admin: 04/28/18 09:42 Dose: 1 mg Meropenem 1 gm/ Sodium (Chloride) 100 mls @ 100 mls/hr IVPB Q8H JESUS; Protocol Last Admin: 04/28/18 04:42 Dose: 100 mls/hr Fentanyl Citrate 2,500 mcg/ (Sodium Chloride) 250 mls @ 19.92 mls/hr IV .[id number] JESUS; Protocol Last Titration: 04/27/18 13:45 Dose: 0 mcg/kg/hr, 0 mls/hr Vancomycin HCl 1,500 mg/ (Sodium Chloride) 500 mls @ 200 mls/hr IVPB Q12H JESUS; Protocol Last Admin: 04/28/18 02:03 Dose: 200 mls/hr Amikacin Sulfate 500 mg/ (Dextrose) 102 mls @ 204 mls/hr IVPB Q12H JESUS; Protocol Last Admin: 04/28/18 06:08 Dose: 204 mls/hr Midazolam HCl 100 mg/ Dextrose 100 mls @ 1.9 mls/hr IV .Q24H [facility]; Protocol Last Admin: 04/27/18 21:45 Dose: Not Given Ibuprofen (Motrin Tab) 400 mg PO Q6H PRN PRN Reason: fever Last Admin: 04/27/18 21:19 Dose: 400 mg Lactobacillus Acidophilus (Bacid Acidophilus) 1 cap PO BID [facility] Last Admin: 04/27/18 17:28 Dose: Not Given Morphine Sulfate (Morphine) 2 mg IVP Q4 PRN PRN Reason: Pain, severe (8-10) Multivitamins (Hexavitamin) 1 tab PO DAILY [facility] Last Admin: 04/28/18 09:42 Dose: 1 tab Pantoprazole Sodium (Protonix Inj) 40 mg IVP DAILY [facility] Last Admin: 04/28/18 09:42 Dose: 40 mg Sennosides (Senokot Tab) 8.6 mg PO BID [facility] Last Admin: 04/28/18 09:42 Dose: 8.6 mg Thiamine HCl (Vitamin B1 Tab) 100 mg PO DAILY [facility] Last Admin: 04/28/18 09:42 Dose: 100 mg - Labs Labs: 04/28/18 06:19 04/28/18 06:19 PT 13.7 SECONDS (9.7-12.2) H 04/24/18 06:26 INR 1.3 04/24/18 06:26 APTT 42 SECONDS (21-34) H 04/24/18 06:26 - Constitutional Appears: Non-toxic, No Acute Distress - Respiratory Exam Respiratory Exam: Clear to Ausculation Bilateral, NORMAL BREATHING PATTERN Additional comments: right chest tubes in place. anterior - 160cc posterior -150cc serosanguinous, no air leak - Cardiovascular Exam Cardiovascular Exam: REGULAR RHYTHM, +S1, +S2 - GI/Abdominal Exam GI & Abdominal Exam: Soft. absent: Distended, Firm, Guarding, Rigid, Tende rness, Rebound - Neurological Exam Neurological Exam: Alert, Awake Assessment and Plan - Assessment and Plan (Free Text) Assessment: 43M s/p right thoracotomy, decortication POD#[address] Plan: - ICU Management - chest tube to suction - monitor outputs Further recs discuss with Dr. Susana Hernandez, PGY3
[2018-04-28] MEDS: Lactobacillus Acidophilus 500 MU Cap PO SCH ×2 (13:03→17:01)
[2018-04-28 14:35] LABS: TOTAL PROTEIN PLEURAL FLUID 5.1 g/dL
--- NOTE | 2018-04-28 15:58 | RAD ---
Date of service: 04/28/2018 HISTORY: rt chest tubes x2- f-up COMPARISON: 04/27/2018 chest x-ray. FINDINGS: LUNGS: Coalescent airspace opacity of the inferior right joao thorax is similar. Right basal consolidation/atelectasis and/or infiltrate inferred. With right pleural effusion inferred. Interval increased pleural thickening and/or fluid in the right minor fissure. Overall bronchovascular markings and interstitial lung markings in the superior right joao thorax appear slightly accentuated. Equivocal right small pneumothorax overseas versus skin fold) is squash chin on the current study not appreciate on the prior study. Interval removal of the prior endotracheal tube. PLEURA: Right pleural effusion present probably moderate in degree. Equivocal small lateral to superior right pneumothorax (versus skin fold). To chest tube tips project superior medial over the right lung apex as before. No mediastinal shift. No left pneumothorax noted. CARDIOVASCULAR: There is absence of aortic atherosclerotic calcification on x-ray. Cardiomegaly-similar concomitant mild pulmonary venous congestion right greater than left probable. Right internal jugular vein central line catheter tip superior vena cava noted similar OSSEOUS STRUCTURES: No significant abnormalities. VISUALIZED UPPER ABDOMEN: Normal. OTHER FINDINGS: None. IMPRESSION: Possible interval right small pneumothorax (versus skin fold) -not apparent on prior studies. The 2 prior right chest tube positions are similar as above. Prior right internal jugular vein central catheter tip superior vena cava-similar Interval endotracheal tube removal. Extensive coalescent consolidation and airspace opacities in the inferior right joao thorax-right pleural effusion with compressive atelectasis with or without infiltrates are compatible with this appearance. As detailed above. Comments: Findings were called up to the floor and directly discussed with the nurse taking care of the patientChinedu at 3:50 p.m. on 04/28/2018. Consider repeat/follow-up chest x-ray erect in expiration to further assess.
--- NOTE | 2018-04-28 16:02 | CP.CCUPN ---
<Misael Tate - Last Filed: 04/28/18 16:54> CCU Subjective - Physician Review Subjective (Free Text): PGY-[address] Rangel service Patient is seen and examined at bedside. Patient has no complaints right now, is alert and oriented, and follows command. Patient is on high flow oxygen and later switched to O2 Nasal cannula. Tmax 101.6F, current temperature 98.2F. No acute events reported overnight. Critical Care Time Spent (in minutes): 40 CCU Objective - Vital Signs / Intake & Output Vital Signs (Last 4 hours): Vital Signs Pulse Resp BP Pulse Ox 04/28/18 15:02 102 H 36 H 136/69 96 04/28/18 15:00 101 H 25 H 95 04/28/18 14:00 93 H 35 H 127/73 98 04/28/18 13:01 92 H 33 H 110/81 91 L 04/28/18 13:00 93 H 21 91 L Intake and Output (Last 8hrs): Intake & Output 04/28/18 04/28/18 04/28/18 06:59 14:59 22:59 Intake Total 700 340 500 Output Total 730 Balance -30 340 500 Weight 210 lb Intake: Intake, IV Amount 700 100 500 Right Distal Port 700 100 500 Internal Jugular Oral 0 240 Output: Chest Tube Drainage 130 Right Lateral Chest 70 Right Posterior Chest 60 Urine 600 Urethral (Roman) 600 Other: # Voids Urethral (Roman) 1 - Physical Exam Head: Positive for: Atraumatic, Normocephalic Pupils: Positive for: PERRL Extroacular Muscles: Positive for: EOMI Neck: Positive for: Normal Range of Motion Respiratory/Chest: Positive for: Decreased Breath Sounds (right middle and lower lobes ). Negative for: Respiratory Distress, Accessory Muscle Use Cardiovascular: Positive for: Regular Rate and Rhythm, Normal S1, S2 Abdomen: Positive for: Distention, Normal Bowel Sounds. Negative for: Tenderness Upper Extremity: Positive for: Normal Inspection. Negative for: Cyanosis, Edema Lower Extremity: Positive for: Normal Inspection. Negative for: Edema Neurological: Positive for: CN II-XII Intact, Speech Normal Skin: Positive for: Warm, Dry, Normal Color Psychiatric: Positive for: Alert, Oriented x 3, Normal Insight, Normal Concentration - Medications Active Medications: Active Medications Generic Name Dose Route Start Last Admin Trade Name Freq PRN Reason Stop Dose Admin Albuterol/Ipratropium 3 ml 04/15/18 08:00 04/28/18 08:15 Duoneb 3 Mg/0.5 Mg (3 Ml) Ud INH 3 ml RQ6 JESUS Administration Docusate Sodium 100 mg 04/14/18 18:30 04/28/18 14:55 Colace PO 100 mg TID JESUS Administration Enoxaparin Sodium 40 mg 04/27/18 10:00 04/28/18 09:42 Lovenox SC 40 mg DAILY JESUS Administration Folic Acid 1 mg 04/14/18 10:00 04/28/18 09:42 Folic Acid PO 1 mg DAILY JESUS Administration Meropenem 1 gm/ Sodium 100 mls @ 100 mls/hr 04/16/18 21:00 04/28/18 13:02 Chloride IVPB 100 mls/hr Q8H JESUS Administration Protocol Vancomycin HCl 1,500 mg/ 500 mls @ 200 mls/hr 04/22/18 03:00 04/28/18 14:55 Sodium Chloride IVPB 200 mls/hr Q12H JESUS Administration Protocol Amikacin Sulfate 500 mg/ 102 mls @ 204 mls/hr 04/25/18 18:00 04/28/18 06:08 Dextrose IVPB 204 mls/hr Q12H JESUS Administration Protocol Ibuprofen 400 mg 04/19/18 03:31 04/27/18 21:19 Motrin Tab PO 400 mg Q6H PRN Administration fever Lactobacillus Acidophilus 1 cap 04/14/18 18:45 04/28/18 13:03 Bacid Acidophilus PO 1 cap BID JESUS Administration Morphine Sulfate 2 mg 04/27/18 12:55 Morphine IVP Q4 PRN Pain, severe (8-10) Multivitamins 1 tab 04/14/18 10:00 04/28/18 09:42 Hexavitamin PO 1 tab DAILY JESUS Administration Pantoprazole Sodium 40 mg 04/14/18 10:00 04/28/18 09:42 Protonix Inj IVP 40 mg DAILY JESUS Administration Sennosides 8.6 mg 04/14/18 00:15 04/28/18 09:42 Senokot Tab PO 8.6 mg BID JESUS Administration Thiamine HCl 100 mg 04/14/18 10:00 04/28/18 09:42 Vitamin B1 Tab PO 100 mg DAILY JESUS Administration - Patient Studies Lab Studies: Microbiology Studies 04/24/18 19:10 Gram Stain - Final Pleural Fluid Body Fluid Culture - Final No growth. 04/19/18 14:23 Mycobacterial Culture - Preliminary Other: Please Indicate 04/24/18 19:10 Fungal Culture - Preliminary Pleural Fluid 04/19/18 14:23 Gram Stain - Final Bronchial Washings Bronchial Culture - Final NORMAL SAPROPHYTIC ALEXA Fungal Culture - Preliminary NO FUNGUS GROWTH IN 1 WEEK. 04/18/18 17:49 Anaerobic Culture - Final Pleural Fluid NO ANAEROBES ISOLATED. Fungal Culture - Preliminary NO FUNGUS GROWTH IN 1 WEEK. 04/25/18 19:30 Blood Culture - Preliminary Blood-Venous NO GROWTH AFTER 48 HOURS 04/25/18 19:00 Blood Culture - Preliminary Blood-Venous NO GROWTH AFTER 48 HOURS 04/24/18 Unknown Mycobacterial Culture - Preliminary Other: Please Indicate 04/24/18 Unknown Mycobacterial Culture - Preliminary Other: Please Indicate 04/24/18 19:10 Mycobacterial Culture - Preliminary Other: Please Indicate 04/24/18 Unknown Gram Stain - Final Lung Tissue Culture - Final No Growth Lab Studies 04/28/18 04/28/18 04/24/18 Range/Units 06:19 06:19 19:10 WBC 9.4 (4.8-10.8) K/uL RBC 3.09 L (4.40-5.90) Mil/uL Hgb 9.2 L (12.0-18.0) g/dL Hct 27.9 L (35.0-51.0) % MCV 90.3 (80.0-94.0) fL MCH 29.8 (27.0-31.0) pg MCHC 33.1 (33.0-37.0) g/dL RDW 14.4 (11.5-14.5) % Plt Count 479 H (130-400) K/uL MPV 9.3 (7.2-11.7) fL Neut % (Auto) 77.8 H (50.0-75.0) % Lymph % (Auto) 8.3 L (20.0-40.0) % [place] % (Auto) 8.8 (0.0-10.0) % Eos % (Auto) 0.8 (0.0-4.0) % Baso % (Auto) 4.3 H (0.0-2.0) % Neut # (Auto) 7.4 H (1.8-7.0) K/uL Lymph # (Auto) 0.8 L (1.0-4.3) K/uL [place] # (Auto) 0.8 (0.0-0.8) K/uL Eos # (Auto) 0.1 (0.0-0.7) K/uL Baso # (Auto) 0.4 H (0.0-0.2) K/uL Neutrophils % (Manual) 80 H (50-75) % Lymphocytes % (Manual) 9 L (20-40) % Monocytes % (Manual) 9 (0-10) % Eosinophils % (Manual) 1 (0-4) % Basophils % (Manual) 1 (0-2) % Platelet Estimate Slightly increased H (NORMAL) Hypochromasia (manual) Slight Poikilocytosis (manual Slight Anisocytosis (manual) Slight Sodium 137 (132-148) mmol/L Potassium 3.6 (3.6-5.2) mmol/L Chloride 106 (98-107) mmol/L Carbon Dioxide 26 (22-30) mmol/L Anion Gap 9 L (10-20) BUN 10 (9-20) mg/dL Creatinine 0.5 L (0.8-1.5) mg/dL Est GFR ( Amer) > 60 Est GFR (Non-Af Amer) > 60 Random Glucose 82 D (75-110) mg/dL Calcium 7.6 L (8.6-10.4) mg/dl Phosphorus 3.6 (2.5-4.5) mg/dL Magnesium 2.0 (1.6-2.3) mg/dL Total Bilirubin 0.8 (0.2-1.3) mg/dL AST 89 H (17-59) U/L ALT 66 (21-72) U/L Alkaline Phosphatase 109 (38-126) U/L Total Protein 6.4 (6.3-8.3) g/dL Albumin 2.4 L (3.5-5.0) g/dL Globulin 4.1 H (2.2-3.9) gm/dL Albumin/Globulin Ratio 0.6 L (1.0-2.1) Pleural Total Protein 5.1 g/dL Pleural Glucose mg/dL Blood Type Antibody Screen 04/24/18 04/24/18 Range/Units 19:10 08:25 WBC (4.8-10.8) K/uL RBC (4.40-5.90) Mil/uL Hgb (12.0-18.0) g/dL Hct (35.0-51.0) % MCV (80.0-94.0) fL MCH (27.0-31.0) pg MCHC (33.0-37.0) g/dL RDW (11.5-14.5) % Plt Count (130-400) K/uL MPV (7.2-11.7) fL Neut % (Auto) (50.0-75.0) % Lymph % (Auto) (20.0-40.0) % [place] % (Auto) (0.0-10.0) % Eos % (Auto) (0.0-4.0) % Baso % (Auto) (0.0-2.0) % Neut # (Auto) (1.8-7.0) K/uL Lymph # (Auto) (1.0-4.3) K/uL [place] # (Auto) (0.0-0.8) K/uL Eos # (Auto) (0.0-0.7) K/uL Baso # (Auto) (0.0-0.2) K/uL Neutrophils % (Manual) (50-75) % Lymphocytes % (Manual) (20-40) % Monocytes % (Manual) (0-10) % Eosinophils % (Manual) (0-4) % Basophils % (Manual) (0-2) % Platelet Estimate (NORMAL) Hypochromasia (manual) Poikilocytosis (manual Anisocytosis (manual) Sodium (132-148) mmol/L Potassium (3.6-5.2) mmol/L Chloride (98-107) mmol/L Carbon Dioxide (22-30) mmol/L Anion Gap (10-20) BUN (9-20) mg/dL Creatinine (0.8-1.5) mg/dL Est GFR ( Amer) Est GFR (Non-Af Amer) Random Glucose (75-110) mg/dL Calcium (8.6-10.4) mg/dl Phosphorus (2.5-4.5) mg/dL Magnesium (1.6-2.3) mg/dL Total Bilirubin (0.2-1.3) mg/dL AST (17-59) U/L ALT (21-72) U/L Alkaline Phosphatase (38-126) U/L Total Protein (6.3-8.3) g/dL Albumin (3.5-5.0) g/dL Globulin (2.2-3.9) gm/dL Albumin/Globulin Ratio (1.0-2.1) Pleural Total Protein g/dL Pleural Glucose 11 mg/dL Blood Type O POSITIVE Antibody Screen Negative Laboratory Results - last 24 hr 04/24/18 04/24/18 04/24/18 08:25 19:10 19:10 WBC RBC Hgb Hct MCV MCH MCHC RDW Plt Count MPV Neut % (Auto) Lymph % (Auto) [place] % (Auto) Eos % (Auto) Baso % (Auto) Neut # (Auto) Lymph # (Auto) [place] # (Auto) Eos # (Auto) Baso # (Auto) Neutrophils % (Manual) Lymphocytes % (Manual) Monocytes % (Manual) Eosinophils % (Manual) Basophils % (Manual) Platelet Estimate Hypochromasia (manual) Poikilocytosis (manual Anisocytosis (manual) Sodium Potassium Chloride Carbon Dioxide Anion Gap BUN Creatinine Est GFR ( Amer) Est GFR (Non-Af Amer) Random Glucose Calcium Phosphorus Magnesium Total Bilirubin AST ALT Alkaline Phosphatase Total Protein Albumin Globulin Albumin/Globulin Ratio Pleural Total Protein 5.1 Pleural Glucose 11 Blood Type O POSITIVE Antibody Screen Negative 04/28/18 04/28/18 06:19 06:19 WBC 9.4 RBC 3.09 L Hgb 9.2 L Hct 27.9 L MCV 90.3 MCH 29.8 MCHC 33.1 RDW 14.4 Plt Count 479 H MPV 9.3 Neut % (Auto) 77.8 H Lymph % (Auto) 8.3 L [place] % (Auto) 8.8 Eos % (Auto) 0.8 Baso % (Auto) 4.3 H Neut # (Auto) 7.4 H Lymph # (Auto) 0.8 L [place] # (Auto) 0.8 Eos # (Auto) 0.1 Baso # (Auto) 0.4 H Neutrophils % (Manual) 80 H Lymphocytes % (Manual) 9 L Monocytes % (Manual) 9 Eosinophils % (Manual) 1 Basophils % (Manual) 1 Platelet Estimate Slightly increased H Hypochromasia (manual) Slight Poikilocytosis (manual Slight Anisocytosis (manual) Slight Sodium 137 Potassium 3.6 Chloride 106 Carbon Dioxide 26 Anion Gap 9 L BUN 10 Creatinine 0.5 L Est GFR ( Amer) > 60 Est GFR (Non-Af Amer) > 60 Random Glucose 82 D Calcium 7.6 L Phosphorus 3.6 Magnesium 2.0 Total Bilirubin 0.8 AST 89 H ALT 66 Alkaline Phosphatase 109 Total Protein 6.4 Albumin 2.4 L Globulin 4.1 H Albumin/Globulin Ratio 0.6 L Pleural Total Protein Pleural Glucose Blood Type Antibody Screen Radiology Impressions: Radiology Impressions Chest X-Ray 04/28/18 07:00 IMPRESSION: Possible interval right small pneumothorax (versus skin fold) -not apparent on prior studies. The 2 prior right chest tube positions are similar as above. Prior right internal jugular vein central catheter tip superior vena cava-similar Interval endotracheal tube removal. Extensive coalescent consolidation and airspace opacities in the inferior right joao thorax-right pleural effusion with compressive atelectasis with or without infiltrates are compatible with this appearance. As detailed above. Comments: Findings were called up to the floor and directly discussed with the nurse taking care of the patient, Chinedu at 3:50 p.m. on 04/28/2018. Consider repeat/follow-up chest x-ray erect in expiration to further assess. Critical Care Progress Note - Extremities/Vascular Does the Patient have a Central Venous Catheter?: Yes Insertion Site: Internal Jugular Vein - Prophylaxis GI Prophylaxis GI: PPI - Prophylaxis DVT Prophylaxis DVT: Heparin SQ - Nutrition Nutrition: Nutrition Category Date Time Status Heart Healthy Diet [DIET] Diets 04/28/18 Lunch Active Assessment/Plan - Assessment and Plan (Free Text) Plan: 43yo M. PMHx of alcohol abuse. p/w abdominal pain secondary to constipation and community acquired pneumonia. Thoracentesis (05/16), empyema. Intubated for worsening respiratory failure with hypoxia and delirium tremens (05/16). Chest tube placed (04/18). Bronchoscopy (04/19). Thoracotomy with pleurectomy, decortication and debridement with two chest tubes placed (04/24). extubated himself on 04/27 on placed on mahogany flow O2, now on NC 3L Neuro Alert and Oriented x3 no acute issues Pulm acute respiratory failure with hypoxia secondary to CAP with empyema s/p thoracotomy with pleurectomy, decortication and debridement with two chest tubes in place On nasal canula O2 @ 2 L - increasing to 5L, saturation low 90s. continue duonebs Cxray 04/28 - right small pneumothorax, airspace opacity of inferior right joao thorax is similar, right basal consolidation/atelectasis and or infiltrate is inferred, right pleural effusion present moderate degree follow up Dr Meza's recs - CT surgery Incentive spirometry Q1H CV hemodynamically stable b/l DVT on cephalic veins Lovenox 40 SC Qdaily Heme WBC 9.4 Hemoglobin 9.2 continue follow am labs Renal continue to monitor renal function continue roman Monitor I/O Endo no acute issues GI Swallow eval by speech therapist- can start regular diet started HHD low fat/low chol protonix colace senokot ID severe sepsis from CAP with empyema, continue current abx- amikacin, meropenem, Vancomycin continue ibuprofen for fever Sputum cx - pending follow up bcx - no growth after 48 hours lung tissue cx - no growth pleural fluid - no growth MRSA + nares DVT proph - lovenox, SCD's GI proph - protonix For pain - Morphine 2mg IVP Q4 PRN Plan discussed with Dr Juan Carlos Tate, PGY-1 - Date & Time Date: 04/28/18 Time: 09:00 <Ulises Rangel S - Last Filed: 04/28/18 18:06> CCU Objective - Vital Signs / Intake & Output Vital Signs (Last 4 hours): Vital Signs Temp Pulse Resp BP Pulse Ox 04/28/18 17:04 98 H 27 H 132/79 94 L 04/28/18 17:00 103 H 24 94 L 04/28/18 16:01 104 H 34 H 127/70 93 L 04/28/18 16:00 98.2 F 100 H 38 H 91 L 04/28/18 15:02 102 H 36 H 136/69 96 04/28/18 15:00 101 H 25 H 95 Intake and Output (Last 8hrs): Intake & Output 04/28/18 04/28/18 04/28/18 06:59 14:59 22:59 Intake Total 700 340 620 Output Total 730 Balance -30 340 620 Weight 210 lb Intake: Intake, IV Amount 700 100 500 Right Distal Port 700 100 500 Internal Jugular Oral 0 240 120 Output: Chest Tube Drainage 130 Right Lateral Chest 70 Right Posterior Chest 60 Urine 600 Urethral (Roman) 600 Other: # Voids Urethral (Roman) 1 1 # Bowel Movements 1 - Medications Active Medications: Active Medications Generic Name Dose Route Start Last Admin Trade Name Freq PRN Reason Stop Dose Admin Albuterol/Ipratropium 3 ml 04/15/18 08:00 04/28/18 08:15 Duoneb 3 Mg/0.5 Mg (3 Ml) Ud INH 3 ml RQ6 JESUS Administration Docusate Sodium 100 mg 04/14/18 18:30 04/28/18 17:02 Colace PO Not Given TID JESUS Enoxaparin Sodium 40 mg 04/27/18 10:00 04/28/18 09:42 Lovenox SC 40 mg DAILY JESUS Administration Folic Acid 1 mg 04/14/18 10:00 04/28/18 09:42 Folic Acid PO 1 mg DAILY JESUS Administration Meropenem 1 gm/ Sodium 100 mls @ 100 mls/hr 04/16/18 21:00 04/28/18 13:02 Chloride IVPB 100 mls/hr Q8H JESUS Administration Protocol Vancomycin HCl 1,500 mg/ 500 mls @ 200 mls/hr 04/22/18 03:00 04/28/18 14:55 Sodium Chloride IVPB 200 mls/hr Q12H JESUS Administration Protocol Amikacin Sulfate 500 mg/ 102 mls @ 204 mls/hr 04/25/18 18:00 04/28/18 17:01 Dextrose IVPB 204 mls/hr Q12H JESUS Administration Protocol Ibuprofen 400 mg 04/19/18 03:31 04/27/18 21:19 Motrin Tab PO 400 mg Q6H PRN Administration fever Lactobacillus Acidophilus 1 cap 04/14/18 18:45 04/28/18 17:01 Bacid Acidophilus PO 1 cap BID JESUS Administration Morphine Sulfate 2 mg 04/27/18 12:55 Morphine IVP Q4 PRN Pain, severe (8-10) Multivitamins 1 tab 04/14/18 10:00 04/28/18 09:42 Hexavitamin PO 1 tab DAILY JESUS Administration Pantoprazole Sodium 40 mg 04/14/18 10:00 04/28/18 09:42 Protonix Inj IVP 40 mg DAILY JESUS Administration Sennosides 8.6 mg 04/14/18 00:15 04/28/18 17:01 Senokot Tab PO 8.6 mg BID JESUS Administration Thiamine HCl 100 mg 04/14/18 10:00 04/28/18 09:42 Vitamin B1 Tab PO 100 mg DAILY JESUS Administration - Patient Studies Lab Studies: Microbiology Studies 04/24/18 19:10 Gram Stain - Final Pleural Fluid Body Fluid Culture - Final No growth. 04/19/18 14:23 Mycobacterial Culture - Preliminary Other: Please Indicate 04/24/18 19:10 Fungal Culture - Preliminary Pleural Fluid 04/19/18 14:23 Gram Stain - Final Bronchial Washings Bronchial Culture - Final NORMAL SAPROPHYTIC ALEXA Fungal Culture - Preliminary NO FUNGUS GROWTH IN 1 WEEK. 04/18/18 17:49 Anaerobic Culture - Final Pleural Fluid NO ANAEROBES ISOLATED. Fungal Culture - Preliminary NO FUNGUS GROWTH IN 1 WEEK. 04/25/18 19:30 Blood Culture - Preliminary Blood-Venous NO GROWTH AFTER 48 HOURS 04/25/18 19:00 Blood Culture - Preliminary Blood-Venous NO GROWTH AFTER 48 HOURS 04/24/18 Unknown Mycobacterial Culture - Preliminary Other: Please Indicate 04/24/18 Unknown Mycobacterial Culture - Preliminary Other: Please Indicate 04/24/18 19:10 Mycobacterial Culture - Preliminary Other: Please Indicate Lab Studies 04/28/18 04/28/18 04/24/18 Range/Units 06:19 06:19 19:10 WBC 9.4 (4.8-10.8) K/uL RBC 3.09 L (4.40-5.90) Mil/uL Hgb 9.2 L (12.0-18.0) g/dL Hct 27.9 L (35.0-51.0) % MCV 90.3 (80.0-94.0) fL MCH 29.8 (27.0-31.0) pg MCHC 33.1 (33.0-37.0) g/dL RDW 14.4 (11.5-14.5) % Plt Count 479 H (130-400) K/uL MPV 9.3 (7.2-11.7) fL Neut % (Auto) 77.8 H (50.0-75.0) % Lymph % (Auto) 8.3 L (20.0-40.0) % [place] % (Auto) 8.8 (0.0-10.0) % Eos % (Auto) 0.8 (0.0-4.0) % Baso % (Auto) 4.3 H (0.0-2.0) % Neut # (Auto) 7.4 H (1.8-7.0) K/uL Lymph # (Auto) 0.8 L (1.0-4.3) K/uL [place] # (Auto) 0.8 (0.0-0.8) K/uL Eos # (Auto) 0.1 (0.0-0.7) K/uL Baso # (Auto) 0.4 H (0.0-0.2) K/uL Neutrophils % (Manual) 80 H (50-75) % Lymphocytes % (Manual) 9 L (20-40) % Monocytes % (Manual) 9 (0-10) % Eosinophils % (Manual) 1 (0-4) % Basophils % (Manual) 1 (0-2) % Platelet Estimate Slightly increased H (NORMAL) Hypochromasia (manual) Slight Poikilocytosis (manual Slight Anisocytosis (manual) Slight Sodium 137 (132-148) mmol/L Potassium 3.6 (3.6-5.2) mmol/L Chloride 106 (98-107) mmol/L Carbon Dioxide 26 (22-30) mmol/L Anion Gap 9 L (10-20) BUN 10 (9-20) mg/dL Creatinine 0.5 L (0.8-1.5) mg/dL Est GFR ( Amer) > 60 Est GFR (Non-Af Amer) > 60 Random Glucose 82 D (75-110) mg/dL Calcium 7.6 L (8.6-10.4) mg/dl Phosphorus 3.6 (2.5-4.5) mg/dL Magnesium 2.0 (1.6-2.3) mg/dL Total Bilirubin 0.8 (0.2-1.3) mg/dL AST 89 H (17-59) U/L ALT 66 (21-72) U/L Alkaline Phosphatase 109 (38-126) U/L Total Protein 6.4 (6.3-8.3) g/dL Albumin 2.4 L (3.5-5.0) g/dL Globulin 4.1 H (2.2-3.9) gm/dL Albumin/Globulin Ratio 0.6 L (1.0-2.1) Pleural Total Protein 5.1 g/dL Pleural Glucose mg/dL 04/24/18 Range/Units 19:10 WBC (4.8-10.8) K/uL RBC (4.40-5.90) Mil/uL Hgb (12.0-18.0) g/dL Hct (35.0-51.0) % MCV (80.0-94.0) fL MCH (27.0-31.0) pg MCHC (33.0-37.0) g/dL RDW (11.5-14.5) % Plt Count (130-400) K/uL MPV (7.2-11.7) fL Neut % (Auto) (50.0-75.0) % Lymph % (Auto) (20.0-40.0) % [place] % (Auto) (0.0-10.0) % Eos % (Auto) (0.0-4.0) % Baso % (Auto) (0.0-2.0) % Neut # (Auto) (1.8-7.0) K/uL Lymph # (Auto) (1.0-4.3) K/uL [place] # (Auto) (0.0-0.8) K/uL Eos # (Auto) (0.0-0.7) K/uL Baso # (Auto) (0.0-0.2) K/uL Neutrophils % (Manual) (50-75) % Lymphocytes % (Manual) (20-40) % Monocytes % (Manual) (0-10) % Eosinophils % (Manual) (0-4) % Basophils % (Manual) (0-2) % Platelet Estimate (NORMAL) Hypochromasia (manual) Poikilocytosis (manual Anisocytosis (manual) Sodium (132-148) mmol/L Potassium (3.6-5.2) mmol/L Chloride (98-107) mmol/L Carbon Dioxide (22-30) mmol/L Anion Gap (10-20) BUN (9-20) mg/dL Creatinine (0.8-1.5) mg/dL Est GFR ( Amer) Est GFR (Non-Af Amer) Random Glucose (75-110) mg/dL Calcium (8.6-10.4) mg/dl Phosphorus (2.5-4.5) mg/dL Magnesium (1.6-2.3) mg/dL Total Bilirubin (0.2-1.3) mg/dL AST (17-59) U/L ALT (21-72) U/L Alkaline Phosphatase (38-126) U/L Total Protein (6.3-8.3) g/dL Albumin (3.5-5.0) g/dL Globulin (2.2-3.9) gm/dL Albumin/Globulin Ratio (1.0-2.1) Pleural Total Protein g/dL Pleural Glucose 11 mg/dL Laboratory Results - last 24 hr 04/24/18 04/24/18 04/28/18 19:10 19:10 06:19 WBC 9.4 RBC 3.09 L Hgb 9.2 L Hct 27.9 L MCV 90.3 MCH 29.8 MCHC 33.1 RDW 14.4 Plt Count 479 H MPV 9.3 Neut % (Auto) 77.8 H Lymph % (Auto) 8.3 L [place] % (Auto) 8.8 Eos % (Auto) 0.8 Baso % (Auto) 4.3 H Neut # (Auto) 7.4 H Lymph # (Auto) 0.8 L [place] # (Auto) 0.8 Eos # (Auto) 0.1 Baso # (Auto) 0.4 H Neutrophils % (Manual) 80 H Lymphocytes % (Manual) 9 L Monocytes % (Manual) 9 Eosinophils % (Manual) 1 Basophils % (Manual) 1 Platelet Estimate Slightly increased H Hypochromasia (manual) Slight Poikilocytosis (manual Slight Anisocytosis (manual) Slight Sodium Potassium Chloride Carbon Dioxide Anion Gap BUN Creatinine Est GFR ( Amer) Est GFR (Non-Af Amer) Random Glucose Calcium Phosphorus Magnesium Total Bilirubin AST ALT Alkaline Phosphatase Total Protein Albumin Globulin Albumin/Globulin Ratio Pleural Total Protein 5.1 Pleural Glucose 11 04/28/18 06:19 WBC RBC Hgb Hct MCV MCH MCHC RDW Plt Count MPV Neut % (Auto) Lymph % (Auto) [place] % (Auto) Eos % (Auto) Baso % (Auto) Neut # (Auto) Lymph # (Auto) [place] # (Auto) Eos # (Auto) Baso # (Auto) Neutrophils % (Manual) Lymphocytes % (Manual) Monocytes % (Manual) Eosinophils % (Manual) Basophils % (Manual) Platelet Estimate Hypochromasia (manual) Poikilocytosis (manual Anisocytosis (manual) Sodium 137 Potassium 3.6 Chloride 106 Carbon Dioxide 26 Anion Gap 9 L BUN 10 Creatinine 0.5 L Est GFR ( Amer) > 60 Est GFR (Non-Af Amer) > 60 Random Glucose 82 D Calcium 7.6 L Phosphorus 3.6 Magnesium 2.0 Total Bilirubin 0.8 AST 89 H ALT 66 Alkaline Phosphatase 109 Total Protein 6.4 Albumin 2.4 L Globulin 4.1 H Albumin/Globulin Ratio 0.6 L Pleural Total Protein Pleural Glucose Radiology Impressions: Radiology Impressions Chest X-Ray 04/28/18 07:00 IMPRESSION: Possible interval right small pneumothorax (versus skin fold) -not apparent on prior studies. The 2 prior right chest tube positions are similar as above. Prior right internal jugular vein central catheter tip superior vena cava-similar Interval endotracheal tube removal. Extensive coalescent consolidation and airspace opacities in the inferior right joao thorax-right pleural effusion with compressive atelectasis with or without infiltrates are compatible with this appearance. As detailed above. Comments: Findings were called up to the floor and directly discussed with the nurse taking care of the patient, Chinedu at 3:50 p.m. on 04/28/2018. Consider repeat/follow-up chest x-ray erect in expiration to further assess. Critical Care Progress Note - Nutrition Nutrition: Nutrition Category Date Time Status Heart Healthy Diet [DIET] Diets 04/28/18 Lunch Active Attending/Attestation - Attestation I have personally seen and examined this patient.: Yes I have fully participated in the care of the patient.: Yes I have reviewed all pertinent clinical information: Yes Notes (Text): 04/28/18 18:03 Patient seen and examined in the intensive care unit. Self extubated yesterday and sitting comfortably in no distress Passed swallowing evaluation Continue IV antibiotics 4 L nasal cannula Repeat venous Doppler for DVT Therapeutic Lovenox was stopped because of drop in hemoglobin AND status post transfusion of 3 units packed RBCs
--- NOTE | 2018-04-28 18:02 | CP.PCM.PN ---
Subjective - Date & Time of Evaluation Date of Evaluation: 04/28/18 Time of Evaluation: 18:00 - Subjective Subjective: Hospitalist Progress Note Patient was seen and examined at 6:00 PM ICU Bed 6 04/28/18 S/P Thoracotomy Right 04/24/18 with Chest Tube x 2 placement Blood Culture 04/25/18 is negative to date Lung Tissue Culture 04/24/18 is negative to date Pleural Fluid Culture 04/24/18 is negative to date Continues with fevers with Tmax today 100.5 F. HgB/Hct are stable and patient is S/P 3 Units PRBC over the weekend 04/24/18 At the time he was on therapeutic Lovenox 100 mg SC Q12H for Bilateral Cephalic Vein DVTs seen on Duplex 04/21/17 and this was held due to the drop in HgB/Hct. Lovenox 40 mg SC Q24H was started by ICU Team 04/28/18 and I have added 60 mg more for today in light of extremity exam (see below) and hope that the HgB/Hct remains stable. Will repeat Venous Dopplers of all 4 extremities for 04/29/18 General: Extubated and breathing comfortably on 2L NC HEENT: NCA, Pupils are round/equal/reactive to light, NO lymphadenopathy, NO thyromegaly, NO pharyngeal erythema/exudate Cardio: NS1 and NS2, NO M/R/G Resp: Course breath sounds diffusely GI: BSx4, Soft, Central Obesity Extremities: 1+ pitting edema right leg which appears to be larger in circumference than the left, Capillary refill is 2 seconds, Pulses are strong and equal Neuro: CN II through XII are grossly intact Please see Assessment and Plans below for summary of care Assessment/Plan 1). Sepsis Secondary to Right Middle and Lower Lobe Pneumonia and Suspected Empyema * Infectious Disease (Dr. Spring) on case * Cardiothoracic Surgery Dr. Meza: Chest tube placed 04/18/18 and pleural fluid culture will have to be followed up * Post operative note April 24, 2018. Patient underwent a right thoracotomy, decortication of the right lung, drainage of the right lung infection/exudates, right middle inferior lobe biopsy performed, right-sided c hest tube placement x2. Specimen noted portion of the middle lobe of the right lobe, portion of the lower lobe on right lung, right lung fluid/hematoma. * 04/24/18 Tissue Culture: No growth after 24 hours * 04/24/18 Pleural Fluid: no growth after 24 hours * 04/24/18 Lung: No growth after 24 hours * 04/24/18 Lung: No growth after 24 hours * Leukocytosis, fever, pneumonia/empyema * CT chest from Apr 15, 2018. Cardiomegaly. Trace pericardial effusion. Coronary artery calcifications. Extensive consolidation throughout the right hemithorax with relative sparing of the right lung apex. Small loculated right-sided pleural effusion measuring approximately 2.1 cm in maximum depth superinfection is not excluded. Mild left basal bibasilar atelectasis. Left hemithorax. Otherwise grossly clear. Limited visualization of the upper abdomen reveals hepatomegaly. Diffuse hepatic steatosis with 2 more focal hypodense regions favored to represent focal fatty infiltration. * CT chest from Apr 17 was suboptimal. No evidence of central pulmonary embolus. Interval worsening of airspace consolidation at the right lung contains foci of low-attenuation possible fluid collection since prior study interval worsening of the right-sided multiple likely request for sacral pleural effusion. * CT chest from 04/20/2018 noted for decreased right pleural effusion. Right chest tube. Extensive right lower lobe atelectasis with right middle lobe and left lower lobe segmental atelectasis. Small left pleural effusion. No pneumothorax. Endotracheal tube and nasogastric tube noted. * Chest xray (04/25/18): postop changes are slowly resolving at the right hemithorax as post decorticulation previously. Tube and catheters unchanged in position with right basilar atectasis favored over infiltrate. Mild right pleu ral effusion is noted including the minor fissue. Limited left perihilar opacity density noted. * Azithromycin and Rocephin were discontinued on 04/15/18 * Zosyn 3.375 gm IV Q6H (04/15/18 through 04/16/18) * Tamiflu 75 mg PO 2x/day (04/14/18 through 04/19/18) * Gentamicin 80mg IV Q12H (04/21/18 through 04/25/18) * Micafungin 100mg IV Q24H (04/23/18 through 04/27/18) * Clindamycin 900 mg IV Q8H (04/16/18 through 04/27/18) Current IV Abx: * Vancomycin 1.25 gm IV Q12H (04/15/18) dose adjusted to Vancomycin 1500gm IV Q12H (active since 04/21/18) * Check random vancomycin level * Amikacin 500mg IVPB Q12H (active since 04/25/18) * Meropenem 1 gm IV Q8H (04/16/18) * Blood Culture 04/13/18: is negative to date * Blood culture 04/21/18: negative. * Urine culture: 04/21/18 * Pleural fluid (04/18/18): no anaerobes isolated. Fungal culture--prelim * Pleural fluid (04/18/18): no growth. * Bronchial Washings: 04/19/18: Normal saphrophytic john paul, fungal culture-prelim * Myocbacterial Culture--Prelim:pending * Procalcitonin: 1.64 * s/p OR (04/24/18)-->bx of lung taken, removal of purulent material from right lung. Anterior and posterior chest tubes. 1 units given in OR of PRBC; 2 units post RBC 2). Acute Respiratory Failure secondary to Pneumonia/Empyema * Patient was intubated and placed on vent on evening 04/15/18 after he started to have DTs * Patient remains on Vent, intubated, high FiO2 * Currently on Fentanyl and Versed; off Propofol 04/24/18 off Precdex * Patient switched from Precedex to Versed to rule out contributing factor to fever (R Patrick note in nursing note 04/25/18) 3). Alcohol Withdrawal DTs * Currently on Fentanyl and Versed * MVI tab PO daily * Vitamin B1 tab PO daily * Folic Acid 1 tab PO daily 4). Bilateral Perinephric Stranding (resolved) As seen on CT Abdomen/Pelvis * On exam 04/14/18 and 04/15/18 there was NO CVA tenderness * UA shows NEGATIVE Nitrate, Ketones, and LE * Repeat urine cultures are negative * Patient has roman 5). Alcohol Abuse * Patient revealed 04/14/18 that he drank shots and multiple beers twice a week but told overnight team at time of admission that he did this 5x per week. * Last drink was this past Friday04/10/18 as per patient * MVI tab PO daily * Vitamin B1 tab PO daily * Folic Acid 1 tab PO daily 6). Hyponatremia (resolved) * Likely SIADH * TSH and T4 are normal * Morning Cortisol normal * Triglycerides normal * Urine Osm was high * Urine Na was 35 7). Tachycardia * Postoperative 2 from cardiothoracic surgery 8). Elevated LFTs and Hepatic Parenchymal Disease (as seen CT Abdomen) Likely secondary to suspected alcohol abuse * Hepatitis Panel negative * HIV negative * UDS negative * On CT scan noted hepatomegaly * uptrending mildly 9). Hypokalemia * monitor and replete 10). Hypomagnesemia * monitor and replete 11). Constipation * As seen on Obstruction Series * Senokot * Colace 100 mg PO 3x/day * Had bowel movement 04/15/18 * Patient to get an enema 04/21/18--> had bowel movement 04/22/18 * Patient distended on exam yesterday; improved had significant bowel movement 04/25/18 per nursing 12) Cephalic DVTS * Patient is on therapeutic lovenox 100mg subq12 Hr held prior to OR 04/23/18 * Will need to f/u ICU when to restart 13). Prophylaxis * DVT risk score of 2 based upon Age and diagnosis of Sepsis: lovenox 40mg subqdaily Bilateral SCDs * As patient was intubated 04/15/18, Protonix 40 mg IV 1x/day * Jevity via OGT started at 20 ml/hr with goal of 45 ml/hr * Lactobacillus PO 2x/day * Therapuetic Lovenox held 04/23/18 * TLC placed on 04/22/18 Updates: 04/16/18: Mary was at bedside and he she was updated on patient's recent developements and status with the help of ICU residen Dr. Severino Tate 04/17/18: Two Sisters, Cousin, Nephew were at bedside and he she was updated on patient's recent developements and status with the help of ICU residen Dr. Severino Tate 04/18/18: with the help of brother in law Carson (who speaks Luxembourgish) family members included Mary, were udated as to patient status 04/19/18: Two Sisters at the bedside were updated with the help of PATRICIA Moreno who translated Maldivian 04/20/18: spoke with and sister at bedside 04/21/18: no family present at bedside 04/22/18: I was present at bedside with cardiothoracic surgeon, ICU resident Janay Martin as well as will need a thoracic surgery explained that patient would need a decortication/VATS planned for this Friday. Given patient's empyema and not improving status. is aware that the surgery carries greater risk and that the and depending on the nature of the surgery will ultimately affect patient's ability to be extubated. She is aware that we hope for good outcomes however she does understand it does carry a high mortality. Dr. Tate at bedside translating on behalf of chronic cardiothoracic surgeon as well. 04/24/17: spoke with at bedside. Patient seen postoperative: in pain. off pr opofol. pending official operative note. 04/25/18: Spoke with family at bedside; patient is status post 3 units PRBC. Follow-up cultures. 04/27/18: NO family at bedside 04/28/18: Updated sister Miranda Franki Nguyen D.O. Objective - Vital Signs/Intake and Output Vital Signs (last 24 hours): Temp Pulse Resp BP Pulse Ox 98.2 F 98 H 27 H 132/79 94 L 04/28/18 16:00 04/28/18 17:04 04/28/18 17:04 04/28/18 17:04 04/28/18 17:04 Intake and Output: 04/28/18 04/28/18 06:59 18:59 Intake Total 900 960 Output Total 730 Balance 170 960 - Medications Medications: Current Medications Albuterol/Ipratropium (Duoneb 3 Mg/0.5 Mg (3 Ml) Ud) 3 ml INH RQ6 [facility] Last Admin: 04/28/18 08:15 Dose: 3 ml Docusate Sodium (Colace) 100 mg PO TID [facility] Last Admin: 04/28/18 17:02 Dose: Not Given Enoxaparin Sodium (Lovenox) 40 mg SC DAILY [facility] Last Admin: 04/28/18 09:42 Dose: 40 mg Folic Acid (Folic Acid) 1 mg PO DAILY [facility] Last Admin: 04/28/18 09:42 Dose: 1 mg Meropenem 1 gm/ Sodium (Chloride) 100 mls @ 100 mls/hr IVPB Q8H [facility]; Protocol Last Admin: 04/28/18 13:02 Dose: 100 mls/hr Vancomycin HCl 1,500 mg/ (Sodium Chloride) 500 mls @ 200 mls/hr IVPB Q12H [facility]; Protocol Last Admin: 04/28/18 14:55 Dose: 200 mls/hr Amikacin Sulfate 500 mg/ (Dextrose) 102 mls @ 204 mls/hr IVPB Q12H [facility]; Protocol Last Admin: 04/28/18 17:01 Dose: 204 mls/hr Ibuprofen (Motrin Tab) 400 mg PO Q6H PRN PRN Reason: fever Last Admin: 04/27/18 21:19 Dose: 400 mg Lactobacillus Acidophilus (Bacid Acidophilus) 1 cap PO BID [facility] Last Admin: 04/28/18 17:01 Dose: 1 cap Morphine Sulfate (Morphine) 2 mg IVP Q4 PRN PRN Reason: Pain, severe (8-10) Multivitamins (Hexavitamin) 1 tab PO DAILY [facility] Last Admin: 04/28/18 09:42 Dose: 1 tab Pantoprazole Sodium (Protonix Inj) 40 mg IVP DAILY [facility] Last Admin: 04/28/18 09:42 Dose: 40 mg Sennosides (Senokot Tab) 8.6 mg PO BID [facility] Last Admin: 04/28/18 17:01 Dose: 8.6 mg Thiamine HCl (Vitamin B1 Tab) 100 mg PO DAILY [facility] Last Admin: 04/28/18 09:42 Dose: 100 mg - Labs Labs: 04/28/18 06:19 04/28/18 06:19 PT 13.7 SECONDS (9.7-12.2) H 04/24/18 06:26 INR 1.3 04/24/18 06:26 APTT 42 SECONDS (21-34) H 04/24/18 06:26
[2018-04-28] MEDS ORDERED: Enoxaparin 60 mg Syringe SC ONE (18:45)
--- NOTE | 2018-04-29 00:26 | PN ---
DATE: 04/28/2018 INFECTIOUS DISEASE FOLLOWUP SUBJECTIVE: The patient remains afebrile but has low grade temperatures off and on. He is off the ventilator. He is on oxygen. He says he is breathing easier. He has two chest tubes in the right chest wall with mild pain. PHYSICAL EXAMINATION: GENERAL: He is awake and alert. NECK: Supple. LUNGS: Clear. Decreased breath sounds bilaterally. HEART: S1, S2, tachycardic. ABDOMEN: Soft, nontender. No guarding, no rigidity present. EXTREMITIES: Have no edema, but he is obese. PLAN: He is going to get some Doppler done to rule out DVT. At this time, I will continue the three antibiotics and probably will discontinue amikacin tomorrow if he remains stable and continue vancomycin and Zosyn and adjust Zosyn upwards but he is getting 1.5 g every 12 hours which is probably adequate. We will follow. Renea Spring MD
[2018-04-29] MEDS: Albuterol-Ipratrop 3 mg / 0.5 (3 ml) UD INH SCH ×4 (01:18→19:55)
[2018-04-29 04:10] LABS: AMYLASE PLEURAL FLUID <10 U/L
[2018-04-29] MEDS: Meropenem 1 GM in Sodium Chloride 0.9% 100 ML IVPB SCH ×3 (05:02→21:29)
[2018-04-29] MEDS: Amikacin 500 MG in Dextrose 5% In Water 100 ML IVPB SCH ×2 (05:53→17:26)
--- NOTE | 2018-04-29 07:29 | CP.PCM.PN ---
Subjective - Date & Time of Evaluation Date of Evaluation: 04/29/18 Time of Evaluation: 07:26 - Subjective Subjective: SURGERY NOTE FOR DR. HERNANDEZ 43M seen and examined at bedside. Patient doing well, denies chest pain, shortness of breath. Tolerating room air. Objective - Vital Signs/Intake and Output Vital Signs (last 24 hours): Temp Pulse Resp BP Pulse Ox 99 F 94 H 26 H 133/78 94 L 04/29/18 06:00 04/29/18 07:01 04/29/18 07:01 04/29/18 07:01 04/29/18 07:01 Intake and Output: 04/29/18 04/29/18 06:59 18:59 Intake Total 1420 0 Output Total 725 Balance 695 0 - Medications Medications: Current Medications Albuterol/Ipratropium (Duoneb 3 Mg/0.5 Mg (3 Ml) Ud) 3 ml INH RQ6 [facility] Last Admin: 04/29/18 01:18 Dose: 3 ml Docusate Sodium (Colace) 100 mg PO TID [facility] Last Admin: 04/28/18 17:02 Dose: Not Given Enoxaparin Sodium (Lovenox) 40 mg SC DAILY [facility] Last Admin: 04/28/18 09:42 Dose: 40 mg Folic Acid (Folic Acid) 1 mg PO DAILY [facility] Last Admin: 04/28/18 09:42 Dose: 1 mg Meropenem 1 gm/ Sodium (Chloride) 100 mls @ 100 mls/hr IVPB Q8H [facility]; Protocol Last Admin: 04/29/18 05:02 Dose: 100 mls/hr Vancomycin HCl 1,500 mg/ (Sodium Chloride) 500 mls @ 200 mls/hr IVPB Q12H [facility]; Protocol Last Admin: 04/29/18 03:08 Dose: 200 mls/hr Amikacin Sulfate 500 mg/ (Dextrose) 102 mls @ 204 mls/hr IVPB Q12H [facility]; Protocol Last Admin: 04/29/18 05:53 Dose: 204 mls/hr Ibuprofen (Motrin Tab) 400 mg PO Q6H PRN PRN Reason: fever Last Admin: 04/29/18 00:01 Dose: 400 mg Lactobacillus Acidophilus (Bacid Acidophilus) 1 cap PO BID [facility] Last Admin: 04/28/18 17:01 Dose: 1 cap Morphine Sulfate (Morphine) 2 mg IVP Q4 PRN PRN Reason: Pain, severe (8-10) Multivitamins (Hexavitamin) 1 tab PO DAILY [facility] Last Admin: 04/28/18 09:42 Dose: 1 tab Pantoprazole Sodium (Protonix Inj) 40 mg IVP DAILY [facility] Last Admin: 04/28/18 09:42 Dose: 40 mg Sennosides (Senokot Tab) 8.6 mg PO BID [facility] Last Admin: 04/28/18 17:01 Dose: 8.6 mg Thiamine HCl (Vitamin B1 Tab) 100 mg PO DAILY [facility] Last Admin: 04/28/18 09:42 Dose: 100 mg - Labs Labs: 04/28/18 06:19 04/28/18 06:19 PT 13.7 SECONDS (9.7-12.2) H 04/24/18 06:26 INR 1.3 04/24/18 06:26 APTT 42 SECONDS (21-34) H 04/24/18 06:26 - Constitutional Appears: Non-toxic, No Acute Distress - Respiratory Exam Respiratory Exam: NORMAL BREATHING PATTERN Additional comments: right chest tubes on suction - anterior 170cc/24hrs - posterior 110cc/24hrs Serosanguinous output - No air leak - Cardiovascular Exam Cardiovascular Exam: REGULAR RHYTHM, +S1, +S2 - GI/Abdominal Exam GI & Abdominal Exam: Soft. absent: Distended, Firm, Guarding, Rigid, Tenderness, Rebound - Extremities Exam Extremities Exam: absent: Pedal Edema, Tenderness - Neurological Exam Neurological Exam: Alert, Awake - Skin Skin Exam: Dry, Intact, Normal Color, Warm Assessment and Plan - Assessment and Plan (Free Text) Assessment: 43M s/p right thoracotomy, decortication, lung biopsy POD#5 Plan: - diet - Monitor chest tube output - Continue ICU management - f/u CXR Further recs discuss with Dr. Susana Hernandez, PGY3
[2018-04-29 09:10] LABS: BASO # 0.3 K/uL (0.0-0.2); BASO % 2.9 % (0.0-2.0); EOS # 0.1 K/uL (0.0-0.7); EOS % 1.1 % (0.0-4.0); LYMPH # 1.1 K/uL (1.0-4.3); LYMPH % 9.9 % (20.0-40.0); MEAN CELL VOLUME 88.6 fL (80.0-94.0); MEAN CORPUSCULAR HEMOGLOBIN 30.4 pg (27.0-31.0); MEAN CORPUSCULAR HGB CONC 34.3 g/dL (33.0-37.0); MEAN PLATELET VOLUME 8.2 fL (7.2-11.7); MONO % 9.3 % (0.0-10.0); NEUT # 8.2 K/uL (1.8-7.0); NEUT % 76.8 % (50.0-75.0); PLATELET COUNT 525 K/uL (130-400); RBC 3.28 Mil/uL (4.40-5.90); RED CELL DISTRIBUTION WIDTH 13.7 % (11.5-14.5); WHITE BLOOD COUNT 10.7 K/uL (4.8-10.8)
[2018-04-29 09:30] LABS: ALB/GLOB RATIO 0.6 (1.0-2.1); ALBUMIN 2.6 g/dL (3.5-5.0); ALT/SGPT 75 U/L (21-72); AST/SGOT 86 U/L (17-59); BLOOD UREA NITROGEN 11 mg/dL (9-20); CALCIUM 7.7 mg/dl (8.6-10.4); GFR NON-AFRICAN AMERICAN > 60
[2018-04-29] MEDS: Multiple Vitamins Tab PO SCH (09:39)
[2018-04-29] MEDS: Enoxaparin 40 mg Syringe SC SCH (09:40)
[2018-04-29] MEDS: Lactobacillus Acidophilus 500 MU Cap PO SCH ×2 (11:05→17:25)
[2018-04-29 12:17] LABS: ANISOCYTOSIS SLIGHT; BASOPHIL 4 % (0-2); EOSINOPHIL 1 % (0-4); HYPOCHROMIC SLIGHT; LYMPHOCYTE 8 % (20-40); MONOCYTE 7 % (0-10); NEUTROPHIL 80 % (50-75); PLATELET ESTIMATE MARKEDLY INCREASED (NORMAL); POIKILOCYTOSIS SLIGHT; TOTAL CELLS COUNTED 100
--- NOTE | 2018-04-29 13:08 | CP.PCM.PN ---
Subjective - Date & Time of Evaluation Date of Evaluation: 04/29/18 Time of Evaluation: 13:02 - Subjective Subjective: Pt s/e. Sitting in chair-conversational vss wbc 10k chest tubes-150/140/ss/no air leak. cxr-right lower lobe consolidation and atelectasis a/p; Clinically making a satisfactory progress. Conltinue current supportive care. Consider ct of chest with contrast early next week. Objective - Vital Signs/Intake and Output Vital Signs (last 24 hours): Temp Pulse Resp BP Pulse Ox 98.8 F 113 H 27 H 123/77 95 04/29/18 10:00 04/29/18 12:01 04/29/18 12:01 04/29/18 12:01 04/29/18 11:10 Intake and Output: 04/29/18 04/29/18 06:59 18:59 Intake Total 1420 1250 Output Total 725 500 Balance 695 750 - Medications Medications: Current Medications Albuterol/Ipratropium (Duoneb 3 Mg/0.5 Mg (3 Ml) Ud) 3 ml INH RQ6 [facility] Last Admin: 04/29/18 08:35 Dose: 3 ml Docusate Sodium (Colace) 100 mg PO TID [facility] Last Admin: 04/29/18 09:40 Dose: 100 mg Enoxaparin Sodium (Lovenox) 40 mg SC DAILY [facility] Last Admin: 04/29/18 09:40 Dose: 40 mg Folic Acid (Folic Acid) 1 mg PO DAILY [facility] Last Admin: 04/29/18 09:40 Dose: 1 mg Meropenem 1 gm/ Sodium (Chloride) 100 mls @ 100 mls/hr IVPB Q8H [facility]; Protocol Last Admin: 04/29/18 12:49 Dose: 100 mls/hr Vancomycin HCl 1,500 mg/ (Sodium Chloride) 500 mls @ 200 mls/hr IVPB Q12H [facility]; Protocol Last Admin: 04/29/18 03:08 Dose: 200 mls/hr Amikacin Sulfate 500 mg/ (Dextrose) 102 mls @ 204 mls/hr IVPB Q12H [facility]; Protoc ol Last Admin: 04/29/18 05:53 Dose: 204 mls/hr Ibuprofen (Motrin Tab) 400 mg PO Q6H PRN PRN Reason: fever Last Admin: 04/29/18 00:01 Dose: 400 mg Lactobacillus Acidophilus (Bacid Acidophilus) 1 cap PO BID [facility] Last Admin: 04/29/18 11:05 Dose: Not Given Morphine Sulfate (Morphine) 2 mg IVP Q4 PRN PRN Reason: Pain, severe (8-10) Multivitamins (Hexavitamin) 1 tab PO DAILY [facility] Last Admin: 04/29/18 09:39 Dose: 1 tab Pantoprazole Sodium (Protonix Inj) 40 mg IVP DAILY [facility] Last Admin: 04/29/18 09:39 Dose: 40 mg Sennosides (Senokot Tab) 8.6 mg PO BID [facility] Last Admin: 04/29/18 09:40 Dose: 8.6 mg Thiamine HCl (Vitamin B1 Tab) 100 mg PO DAILY [facility] Last Admin: 04/29/18 09:40 Dose: 100 mg - Labs Labs: 04/29/18 08:59 04/29/18 08:59 PT 13.7 SECONDS (9.7-12.2) H 04/24/18 06:26 INR 1.3 04/24/18 06:26 APTT 42 SECONDS (21-34) H 04/24/18 06:26
--- NOTE | 2018-04-29 15:09 | RAD ---
Date of service: 04/29/2018 HISTORY: Follow-up COMPARISON: No prior. FINDINGS: LUNGS: Two in situ right-sided chest tubes again noted. No change right IJ central line with tip in the SVC. Apparent residual small right-sided pneumothorax. Dense diffuse opacity in the right lung base likely represent some combination of atelectasis-infiltrate and effusion as well as postoperative sequela. Minor left basilar atelectasis. PLEURA: As above. CARDIOVASCULAR: No aortic atherosclerotic calcification present. Normal cardiac size. No pulmonary vascular congestion. OSSEOUS STRUCTURES: No significant abnormalities. VISUALIZED UPPER ABDOMEN: Normal. OTHER FINDINGS: None. IMPRESSION: Two in situ right-sided chest tubes again noted. No change right IJ central line with tip in the SVC. Apparent residual small right-sided pneumothorax. Dense diffuse opacity in the right lung base likely represent some combination of atelectasis-infiltrate and effusion as well as postoperative sequela. Minor left basilar atelectasis.
[2018-04-29] MEDS ORDERED: Enoxaparin 60 mg Syringe SC ONE (18:45)
--- NOTE | 2018-04-29 19:29 | CP.PCM.PN ---
Subjective - Date & Time of Evaluation Date of Evaluation: 04/29/18 Time of Evaluation: 19:00 - Subjective Subjective: Hospitalist Progress Note Patient was seen and examined at 7:00 PM ICU Bed 6 04/29/18 S/P Thoracotomy Right 04/24/18 with Chest Tube x 2 placement Blood Culture 04/25/18 is negative to date Lung Tissue Culture 04/24/18 is negative to date Pleural Fluid Culture 04/24/18 is negative to date Continues with fevers with Tmax 101.3 F at midnight 04/29/18. HgB/Hct are stable and patient is S/P 3 Units PRBC over the weekend 04/24/18 At the time he was on therapeutic Lovenox 100 mg SC Q12H for Bilateral Cephalic Vein DVTs seen on Duplex 04/21/17 and this was held due to the drop in HgB/Hct. HgB/Hct remained stable after patient was given therapeutic lovenox trial of 100 mg SC on 04/28/18. Venous Dopplers of all 4 extremities was ordered on 04/28/18 but not done today. I have spoken with ICU Nurse caring for patient after 7 PM tonight to make sure that these studies are performed morning of 04/30/18. I spoke with ICU Resident Dr. James Tate who had spoken with Surgeon Dr. Meza who did NOT recommend therapeutic Lovenox in light of the chest tubes on the right However, should the venous dopplers come back positive on 04/30/18, we will have to considering trying another trial of therapeutic lovenox Patient is currently on Lovenox 40 mg SC 1x/day for DVT prophylaxis Currently upon FULL ROS: NO chest pain Some soreness at the site of Right Chest Tube insertion NO SOB/Cough NO dysphagia/odynophagia NO abdominal pain Moving his bowels normally NO burning/pain with urination NO headaches NO new changes in vision NO new changes in hearing NO other complaints upon FULL ROS General: Extubated 04/28/18 and breathing comfortably on 2L NC HEENT: NCA, Pupils are round/equal/reactive to light, NO lymphadenopathy, NO thyromegaly, NO pharyngeal erythema/exudate Cardio: NS1 and NS2, NO M/R/G Resp: Course breath sounds diffusely GI: BSx4, Soft, Central Obesity Extremities: 1+ pitting edema right leg which appears to be larger in circumference than the left, Capillary refill is 2 seconds, Pulses are strong and equal Neuro: CN II through XII are grossly intact Please see Assessment and Plans below for summary of care Assessment/Plan 1). Sepsis Secondary to Right Middle and Lower Lobe Pneumonia and Suspected Empyema * Infectious Disease (Dr. Spring) on case * Cardiothoracic Surgery Dr. Meza: Chest tube placed 04/18/18 and pleural fluid culture will have to be followed up * Post operative note April 24, 2018. Patient underwent a right thoracotomy, decortication of the right lung, drainage of the right lung infec tion/exudates, right middle inferior lobe biopsy performed, right-sided chest tube placement x2. Specimen noted portion of the middle lobe of the right lobe, portion of the lower lobe on right lung, right lung fluid/hematoma. * 04/24/18 Tissue Culture: No growth after 24 hours * 04/24/18 Pleural Fluid: no growth after 24 hours * 04/24/18 Lung: No growth after 24 hours * 04/24/18 Lung: No growth after 24 hours * Leukocytosis, fever, pneumonia/empyema * CT chest from Apr 15, 2018. Cardiomegaly. Trace pericardial effusion. Coronary artery calcifications. Extensive consolidation throughout the right hemithorax with relative sparing of the right lung apex. Small loculated right-sided pleural effusion measuring approximately 2.1 cm in maximum depth superinfection is not excluded. Mild left basal bibasilar atelectasis. Left hemithorax. Otherwise grossly clear. Limited visualization of the upper abdomen reveals hepatomegaly. Diffuse hepatic steatosis with 2 more focal hypodense regions favored to represent focal fatty infiltration. * CT chest from Apr 17 was suboptimal. No evidence of central pulmonary embolus. Interval worsening of airspace consolidation at the right lung contains foci of low-attenuation possible fluid collection since prior study interval worsening of the right-sided multiple likely request for sacral pleural effusion. * CT chest from 04/20/2018 noted for decreased right pleural effusion. Right chest tube. Extensive right lower lobe atelectasis with right middle lobe and left lower lobe segmental atelectasis. Small left pleural effusion. No pneumothorax. Endotracheal tube and nasogastric tube noted. * Chest xray (04/25/18): postop changes are slowly resolving at the right hemithorax as post decorticulation previously. Tube and catheters unchanged in position with right basilar atectasis favored over infiltrate. Mild right pleural effusion is noted including the minor fissue. Limited left perihilar opacity density noted. * Azithromycin and Rocephin were discontinued on 04/15/18 * Zosyn 3.375 gm IV Q6H (04/15/18 through 04/16/18) * Tamiflu 75 mg PO 2x/day (04/14/18 through 04/19/18) * Gentamicin 80mg IV Q12H (04/21/18 through 04/25/18) * Micafungin 100mg IV Q24H (04/23/18 through 04/27/18) * Clindamycin 900 mg IV Q8H (04/16/18 through 04/27/18) Current IV Abx: * Vancomycin 1.25 gm IV Q12H (04/15/18) dose adjusted to Vancomycin 1500gm IV Q12H (active since 04/21/18) * Check random vancomycin level * Amikacin 500mg IVPB Q12H (active since 04/25/18) * Meropenem 1 gm IV Q8H (04/16/18) * Blood Culture 04/13/18: is negative to date * Blood culture 04/21/18: negative. * Urine culture: 04/21/18 * Pleural fluid (04/18/18): no anaerobes isolated. Fungal culture--prelim * Pleural fluid (04/18/18): no growth. * Bronchial Washings: 04/19/18: Normal saphrophytic john paul, fungal culture-prelim * Myocbacterial Culture--Prelim:pending * Procalcitonin: 1.64 * s/p OR (04/24/18)-->bx of lung taken, removal of purulent material from right lung. Anterior and posterior chest tubes. 1 units given in OR of PRBC; 2 units post RBC 2). Acute Respiratory Failure secondary to Pneumonia/Empyema * Patient was intubated and placed on vent on evening 04/15/18 after he started to have DTs * Patient remains on Vent, intubated, high FiO2 * Currently on Fentanyl and Versed; off Propofol 04/24/18 off Precdex * Patient switched from Precedex to Versed to rule out contributing factor to fever (R Patrick note in nursing note 04/25/18) 3). Alcohol Withdrawal DTs * Currently on Fentanyl and Versed * MVI tab PO daily * Vitamin B1 tab PO daily * Folic Acid 1 tab PO daily 4). Bilateral Perinephric Stranding (resolved) As seen on CT Abdomen/Pelvis * On exam 04/14/18 and 04/15/18 there was NO CVA tenderness * UA shows NEGATIVE Nitrate, Ketones, and LE * Repeat urine cultures are negative * Patient has roman 5). Alcohol Abuse * Patient revealed 04/14/18 that he drank shots and multiple beers twice a week but told overnight team at time of admission that he did this 5x per week. * Last drink was this past Friday04/10/18 as per patient * MVI tab PO daily * Vitamin B1 tab PO daily * Folic Acid 1 tab PO daily 6). Hyponatremia (resolved) * Likely SIADH * TSH and T4 are normal * Morning Cortisol normal * Triglycerides normal * Urine Osm was high * Urine Na was 35 7). Tachycardia * Postoperative 2 from cardiothoracic surgery 8). Elevated LFTs and Hepatic Parenchymal Disease (as seen CT Abdomen) Likely secondary to suspected alcohol abuse * Hepatitis Panel negative * HIV negative * UDS negative * On CT scan noted hepatomegaly * uptrending mildly 9). Hypokalemia * monitor and replete 10). Hypomagnesemia * monitor and replete 11). Constipation * As seen on Obstruction Series * Senokot * Colace 100 mg PO 3x/day * Had bowel movement 04/15/18 * Patient to get an enema 04/21/18--> had bowel movement 04/22/18 * Patient distended on exam yesterday; improved had significant bowel movement 04/25/18 per nursing 12) Cephalic DVTS * Patient was on therapeutic lovenox 100mg subq12 Hr held prior to OR 04/23/18 13). Prophylaxis * DVT risk score of 2 based upon Age and diagnosis of Sepsis: lovenox 40mg subqdaily Bilateral SCDs * As patient was intubated 04/15/18, Protonix 40 mg IV 1x/day was started * Jevity was given via OGT while he was intubated * Lactobacillus PO 2x/day * Therapuetic Lovenox 100 mg SC Q12H held 04/23/18 * TLC placed on 04/22/18 Updates: 04/16/18: Mary was at bedside and he she was updated on patient's recent developements and status with the help of ICU residen Dr. Severino Tate 04/17/18: Two Sisters, Cousin, Nephew were at bedside and he she was updated on patient's recent developements and status with the help of ICU residen Dr. Severino Tate 04/18/18: with the help of brother in law Carson (who speaks Maltese) family members included Mary, were udated as to patient status 04/19/18: Two Sisters at the bedside were updated with the help of PATRICIA Moreno who translated Greek 04/20/18: spoke with and sister at bedside 04/21/18: no family present at bedside 04/22/18: I was present at bedside with cardiothoracic surgeon, ICU resident Janay Martin as well as will need a thoracic surgery explained that patient would need a decortication/VATS planned for this Friday. Given patient's empyema and not improving status. is aware that the surgery carries greater risk and that the and depending on the nature of the surgery will ultimately affect patient's ability to be extubated. She is aware that we hope for good outcomes however she does understand it does carry a high mortality. Dr. Tate at bedside translating on behalf of chronic cardiothoracic surgeon as well. 04/24/17: spoke with at bedside. Patient seen postoperative: in pain. off propofol. pending official operative note. 04/25/18: Spoke with family at bedside; patient is status post 3 units PRBC. Follow-up cultures. 04/27/18: NO family at bedside 04/28/18: Updated sister Miranda 04/29/18: NO family at bedside Franki Nguyen D.O. Objective - Vital Signs/Intake and Output Vital Signs (last 24 hours): Temp Pulse Resp BP Pulse Ox 98.8 F 113 H 12 129/81 95 04/29/18 10:00 04/29/18 18:00 04/29/18 18:00 04/29/18 17:01 04/29/18 16:46 Intake and Output: 04/29/18 04/30/18 18:59 06:59 Intake Total 1250 Output Total 500 Balance 750 - Medications Medications: Current Medications Albuterol/Ipratropium (Duoneb 3 Mg/0.5 Mg (3 Ml) Ud) 3 ml INH RQ6 [facility] Last Admin: 04/29/18 13:19 Dose: 3 ml Docusate Sodium (Colace) 100 mg PO TID [facility] Last Admin: 04/29/18 17:25 Dose: 100 mg Enoxaparin Sodium (Lovenox) 40 mg SC DAILY [facility] Last Admin: 04/29/18 09:40 Dose: 40 mg Folic Acid (Folic Acid) 1 mg PO DAILY [facility] Last Admin: 04/29/18 09:40 Dose: 1 mg Meropenem 1 gm/ Sodium (Chloride) 100 mls @ 100 mls/hr IVPB Q8H [facility]; Protocol Last Admin: 04/29/18 12:49 Dose: 100 mls/hr Vancomycin HCl 1,500 mg/ (Sodium Chloride) 500 mls @ 200 mls/hr IVPB Q12H [facility]; Protocol Last Admin: 04/29/18 14:30 Dose: 200 mls/hr Amikacin Sulfate 500 mg/ (Dextrose) 102 mls @ 204 mls/hr IVPB Q12H [facility]; Protocol Last Admin: 04/29/18 17:26 Dose: 204 mls/hr Ibuprofen (Motrin Tab) 400 mg PO Q6H PRN PRN Reason: fever Last Admin: 04/29/18 00:01 Dose: 400 mg Lactobacillus Acidophilus (Bacid Acidophilus) 1 cap PO BID [facility] Last Admin: 04/29/18 17:25 Dose: 1 cap Morphine Sulfate (Morphine) 2 mg IVP Q4 PRN PRN Reason: Pain, severe (8-10) Multivitamins (Hexavitamin) 1 tab PO DAILY [facility] Last Admin: 04/29/18 09:39 Dose: 1 tab Pantoprazole Sodium (Protonix Inj) 40 mg IVP DAILY [facility] Last Admin: 04/29/18 09:39 Dose: 40 mg Sennosides (Senokot Tab) 8.6 mg PO BID [facility] Last Admin: 04/29/18 17:25 Dose: Not Given Thiamine HCl (Vitamin B1 Tab) 100 mg PO DAILY [facility] Last Admin: 04/29/18 09:40 Dose: 100 mg - Labs Labs: 04/29/18 08:59 02/06/19 08:59 PT 13.7 SECONDS (9.7-12.2) H 04/24/18 06:26 INR 1.3 04/24/18 06:26 APTT 42 SECONDS (21-34) H 04/24/18 06:26
[2018-04-30] MEDS: Albuterol-Ipratrop 3 mg / 0.5 (3 ml) UD INH SCH ×4 (01:56→19:27)
[2018-04-30] MEDS: Meropenem 1 GM in Sodium Chloride 0.9% 100 ML IVPB SCH ×3 (05:00→21:49)
[2018-04-30 05:59] LABS: BASO # 0.2 K/uL (0.0-0.2); BASO % 1.9 % (0.0-2.0); EOS # 0.2 K/uL (0.0-0.7); EOS % 1.9 % (0.0-4.0); HEMOGLOBIN 9.2 g/dL (12.0-18.0); LYMPH % 9.9 % (20.0-40.0); MEAN CELL VOLUME 89.4 fL (80.0-94.0); MEAN CORPUSCULAR HEMOGLOBIN 30.1 pg (27.0-31.0); MEAN CORPUSCULAR HGB CONC 33.6 g/dL (33.0-37.0); MEAN PLATELET VOLUME 9.4 fL (7.2-11.7); MONO # 1.2 K/uL (0.0-0.8); MONO % 11.6 % (0.0-10.0); NEUT # 7.4 K/uL (1.8-7.0); NEUT % 74.7 % (50.0-75.0); PLATELET COUNT 465 K/uL (130-400); RBC 3.07 Mil/uL (4.40-5.90); RED CELL DISTRIBUTION WIDTH 13.8 % (11.5-14.5)
[2018-04-30] MEDS: Amikacin 500 MG in Dextrose 5% In Water 100 ML IVPB SCH (06:00)
[2018-04-30 06:13] LABS: ALB/GLOB RATIO 0.6 (1.0-2.1); ALBUMIN 2.3 g/dL (3.5-5.0); ALT/SGPT 63 U/L (21-72); AST/SGOT 77 U/L (17-59); BLOOD UREA NITROGEN 8 mg/dL (9-20); CALCIUM 7.5 mg/dl (8.6-10.4); GFR NON-AFRICAN AMERICAN > 60
--- NOTE | 2018-04-30 08:04 | RAD ---
Date of service: 04/30/2018 HISTORY: chest tube COMPARISON: 04/30/2018 FINDINGS: LUNGS: The inferior right hemithoracic opacification-compatible with right basal consolidation/atelectasis/infiltrate and right pleural effusion is similar. Some loculated right pleural fluid-possible. No left lung consolidation seen. . Two right sided chest tube tips project over right lung apex. The tiny lateral right mid lung zone gas like lucency is similar-potential small pneumothorax here or small aerated lung surrounded by consolidation as above-appear similar PLEURA: Persistent moderate-large right pleural effusion. Equivocal small right pneumothorax pocket lateral right mid lung zone as above. All of these findings this section are similar appearing CARDIOVASCULAR: No aortic atherosclerotic calcification present. Cardiomegaly-similar Probable mild concomitant pulmonary venous congestion (and right pulmonary vascular markings crowding) Right internal jugular vein central line catheter tip superior vena cava-similar OSSEOUS STRUCTURES: No significant abnormalities. VISUALIZED UPPER ABDOMEN: Normal. OTHER FINDINGS: Skin ilene project partially over the lateral right mid hemithorax-as before IMPRESSION: No interval change seen in the position of the 2 right-sided chest tube tips. At this right lung apex no gross pneumothorax is appreciated. Equivocal right lateral mid lung zone pneumothorax pocket (versus pocket of aerated lung surrounded by pleural effusion and consolidation) appears similar. If needed-CT of the chest may assist in further clarification here. No significant change in large right pleural effusion with probable partial loculation. No change in inferred right basal compressive atelectasis (with or without concomitant infiltrate here). No interval pathology left lung.
--- NOTE | 2018-04-30 08:11 | CP.PCM.PN ---
Subjective - Date & Time of Evaluation Date of Evaluation: 04/30/18 Time of Evaluation: 07:30 - Subjective Subjective: Surgery progress note for Dr. Meza. Patient seen and examined at bedside. No acute overnight events reported. Patient continues to have fever overnight, Tmax 100.8. Patient has anterior and posterior chest tubes in place with no issues. Pt denies SOB, chest pain, N/V, abd pain. Objective - Vital Signs/Intake and Output Vital Signs (last 24 hours): Temp Pulse Resp BP Pulse Ox 99.1 F 81 24 128/84 95 04/30/18 05:00 04/30/18 07:01 04/30/18 07:01 04/30/18 07:01 04/30/18 07:01 Intake and Output: 04/30/18 04/30/18 06:59 18:59 Intake Total 1060 Output Total 2500 Balance -1440 - Medications Medications: Current Medications Albuterol/Ipratropium (Duoneb 3 Mg/0.5 Mg (3 Ml) Ud) 3 ml INH RQ6 [facility] Last Admin: 04/30/18 01:56 Dose: Not Given Docusate Sodium (Colace) 100 mg PO TID [facility] Last Admin: 04/29/18 17:25 Dose: 100 mg Enoxaparin Sodium (Lovenox) 40 mg SC DAILY [facility] Last Admin: 04/29/18 09:40 Dose: 40 mg Folic Acid (Folic Acid) 1 mg PO DAILY [facility] Last Admin: 04/29/18 09:40 Dose: 1 mg Meropenem 1 gm/ Sodium (Chloride) 100 mls @ 100 mls/hr IVPB Q8H [facility]; Protocol Last Admin: 04/30/18 05:00 Dose: 100 mls/hr Vancomycin HCl 1,500 mg/ (Sodium Chloride) 500 mls @ 200 mls/hr IVPB Q12H [facility]; Protocol Last Admin: 04/30/18 03:00 Dose: 200 mls/hr Amikacin Sulfate 500 mg/ (Dextrose) 102 mls @ 204 mls/hr IVPB Q12H [facility]; Protocol Last Admin: 04/30/18 06:00 Dose: 204 mls/hr Ibuprofen (Motrin Tab) 400 mg PO Q6H PRN PRN Reason: fever Last Admin: 04/30/18 01:39 Dose: 400 mg Lactobacillus Acidophilus (Bacid Acidophilus) 1 cap PO BID [facility] Last Admin: 04/29/18 17:25 Dose: 1 cap Morphine Sulfate (Morphine) 2 mg IVP Q4 PRN PRN Reason: Pain, severe (8-10) Multivitamins (Hexavitamin) 1 tab PO DAILY [facility] Last Admin: 04/29/18 09:39 Dose: 1 tab Pantoprazole Sodium (Protonix Inj) 40 mg IVP DAILY [facility] Last Admin: 04/29/18 09:39 Dose: 40 mg Sennosides (Senokot Tab) 8.6 mg PO BID [facility] Last Admin: 04/29/18 17:25 Dose: Not Given Thiamine HCl (Vitamin B1 Tab) 100 mg PO DAILY [facility] Last Admin: 04/29/18 09:40 Dose: 100 mg - Labs Labs: 04/30/18 05:49 04/30/18 05:47 PT 13.7 SECONDS (9.7-12.2) H 04/24/18 06:26 INR 1.3 04/24/18 06:26 APTT 42 SECONDS (21-34) H 04/24/18 06:26 - Constitutional Appears: Non-toxic, No Acute Distress - Head Exam Head Exam: NORMAL INSPECTION - Eye Exam Eye Exam: Normal appearance - ENT Exam ENT Exam: Mucous Membranes Moist - Respiratory Exam Respiratory Exam: NORMAL BREATHING PATTERN Additional comments: Right anterior chest tube 90 cc/24 hr Right posterior chest tube 250 cc/24 hr seriosanguious fluid no air leak - GI/Abdominal Exam GI & Abdominal Exam: Soft - Neurological Exam Neurological Exam: Alert, Awake, Oriented x3 - Psychiatric Exam Psychiatric exam: Normal Affect, Normal Mood Assessment and Plan - Assessment and Plan (Free Text) Assessment: 43M s/p right thoracotomy, decortication, lung biopsy POD#6 Plan: - diet - Monitor chest tube output, continue on suction - daily xray - may consider chest CT w/ contrast early next week - Continue ICU management
[2018-04-30 08:41] LABS: BANDS 4 % (0-2); BASOPHIL 1 % (0-2); EOSINOPHIL 3 % (0-4); LYMPHOCYTE 9 % (20-40); REACTIVE LYMPHOCYTES 1 % (0-0); TOTAL CELLS COUNTED 100
[2018-04-30 08:42] LABS: MONOCYTE 6 % (0-10); NEUTROPHIL 76 % (50-75); PLATELET ESTIMATE SLIGHTLY INCREASED (NORMAL)
[2018-04-30] MEDS: Enoxaparin 40 mg Syringe SC SCH (09:13)
[2018-04-30] MEDS: Multiple Vitamins Tab PO SCH (09:13)
[2018-04-30] MEDS: Lactobacillus Acidophilus 500 MU Cap PO SCH ×2 (09:17→18:17)
[2018-04-30] MEDS: Potassium Chloride 20 mEq ER Tab PO SCH (09:42)
[2018-04-30] MEDS: Tramadol 25 mg PO PRN (12:58)
--- NOTE | 2018-04-30 13:41 | CP.PCM.PN ---
Subjective - Date & Time of Evaluation Date of Evaluation: 04/30/18 Time of Evaluation: 13:25 - Subjective Subjective: Hospitalist Progress Note Patient was seen and examined at 1:25 PM ICU Bed 6 04/30/18 with the help of ICU Resident Dr Severino Tate who translated Angolan S/P Thoracotomy Right 04/24/18 with Chest Tube x 2 placement Blood Culture 04/25/18 is negative to date Lung Tissue Culture 04/24/18 is negative to date Pleural Fluid Culture 04/24/18 is negative to date Pleural Fluid Fungal Culture 04/24/18 is negative Pleural Fluid Mycobacterium Culture 04/24/18 shows NO AFB Continues with fevers with Tmax 100.8 F around 1 AM 04/30/18. HgB/Hct are stable and patient is S/P 3 Units PRBC over the weekend 04/24/18 At the time he was on therapeutic Lovenox 100 mg SC Q12H for Bilateral Cephalic Vein DVTs seen on Duplex 04/21/17 and this was held due to the drop in HgB/Hct. HgB/Hct remained stable after patient was given therapeutic lovenox trial of 100 mg SC on 04/28/18. Venous Dopplers of all 4 extremities was ordered on 04/28/18 but not done today. I have spoken with ICU Nurse caring for patient after 7 PM tonight to make sure that these studies are performed morning of 04/30/18. I spoke with ICU Resident Dr. James Tate who had spoken with Surgeon Dr. Meza who did NOT recommend therapeutic Lovenox in light of the chest tubes on the right However, should the venous dopplers come back positive on 04/30/18, we will have to consider trying another trial of therapeutic lovenox As of the time of my exam today 04/30/18, Venous Dopplers still not performed. Spoke with ICU Nurse Juma and he will contact Vascular Lab to have done CLAIR Patient is currently on Lovenox 40 mg SC 1x/day for DVT prophylaxis Mary explains that there have been episodes during the day where the patients appears to be confused to her. At times during a conversation he will just say "Whose on the elevator" and does not seem to know where he is. At the time of my exam 04/30/18 he is aware of where he is, why he is here, day/date/year/president, is able to follow explanation as to his status and asks appropriate questions. Could this be secondary to long history of Alcohol Abuse? ICU psychosis?. Will obtain Psychiatry Consultation and CT Head without contrast. Currently upon FULL ROS: NO chest pain Some soreness at the site of Right Chest Tube insertion NO SOB/Cough NO dysphagia/odynophagia NO abdominal pain Moving his bowels normally NO burning/pain with urination NO headaches NO new changes in vision NO new changes in hearing NO other complaints upon FULL ROS General: Extubated 04/28/18 and breathing comfortably on 2L NC. AAOX3 HEENT: NCA, Pupils are round/equal/reactive to light, NO lymphadenopathy, NO thyromegaly, NO pharyngeal erythema/exudate Cardio: NS1 and NS2, NO M/R/G Resp: Course breath sounds diffusely GI: BSx4, Soft, Central Obesity Extremities: 1+ pitting edema right leg which appears to be larger in circumference than the left, Capillary refill is 2 seconds, Pulses are strong and equal Neuro: CN II through XII are grossly intact Please see Assessment and Plans below for summary of care Assessment/Plan 1). Sepsis Secondary to Right Middle and Lower Lobe Pneumonia and Suspected Empyema * Infectious Disease (Dr. Spring) on case * Cardiothoracic Surgery Dr. Meza: Chest tube placed 04/18/18 and pleural fluid culture will have to be followed up * Post operative note April 24, 2018. Patient underwent a right thoracotomy, decortication of the right lung, drainage of the right lung infection/exudates, right middle inferior lobe biopsy performed, right-sided chest tube placement x2. Specimen noted portion of the middle lobe of the right lobe, portion of the lower lobe on right lung, right lung fluid/hematoma. * 04/24/18 Tissue Culture: No growth after 24 hours * 04/24/18 Pleural Fluid: no growth after 24 hours * 04/24/18 Lung: No growth after 24 hours * 04/24/18 Lung: No growth after 24 hours * Leukocytosis, fever, pneumonia/empyema * CT chest from Apr 15, 2018. Cardiomegaly. Trace pericardial effusion. Todd nary artery calcifications. Extensive consolidation throughout the right hemithorax with relative sparing of the right lung apex. Small loculated right-sided pleural effusion measuring approximately 2.1 cm in maximum depth superinfection is not excluded. Mild left basal bibasilar atelectasis. Left hemithorax. Otherwise grossly clear. Limited visualization of the upper abdomen reveals hepatomegaly. Diffuse hepatic steatosis with 2 more focal hypodense regions favored to represent focal fatty infiltration. * CT chest from Apr 17 was suboptimal. No evidence of central pulmonary embolus. Interval worsening of airspace consolidation at the right lung contains foci of low-attenuation possible fluid collection since prior study interval worsening of the right-sided multiple likely request for sacral pleural effusion. * CT chest from 04/20/2018 noted for decreased right pleural effusion. Right chest tube. Extensive right lower lobe atelectasis with right middle lobe and left lower lobe segmental atelectasis. Small left pleural effusion. No pneumothorax. Endotracheal tube and nasogastric tube noted. * Chest xray (04/25/18): postop changes are slowly resolving at the right hemithorax as post decorticulation previously. Tube and catheters unchanged in position with right basilar atectasis favored over infiltrate. Mild right pleural effusion is noted including the minor fissue. Limited left perihilar opacity density noted. * Azithromycin and Rocephin were discontinued on 04/15/18 * Zosyn 3.375 gm IV Q6H (04/15/18 through 04/16/18) * Tamiflu 75 mg PO 2x/day (04/14/18 through 04/19/18) * Gentamicin 80mg IV Q12H (04/21/18 through 04/25/18) * Micafungin 100mg IV Q24H (04/23/18 through 04/27/18) * Clindamycin 900 mg IV Q8H (04/16/18 through 04/27/18) Current IV Abx: * Vancomycin 1.25 gm IV Q12H (04/15/18) dose adjusted to Vancomycin 1500gm IV Q12H (active since 04/21/18) * Check random vancomycin level * Amikacin 500mg IVPB Q12H (active since 04/25/18) * Meropenem 1 gm IV Q8H (04/16/18) * Blood Culture 04/13/18: is negative to date * Blood culture 04/21/18: negative. * Urine culture: 04/21/18 * Pleural fluid (04/18/18): no anaerobes isolated. Fungal culture--prelim * Pleural fluid (04/18/18): no growth. * Bronchial Washings: 04/19/18: Normal saphrophytic john paul, fungal culture-prelim * Myocbacterial Culture--Prelim:pending * Procalcitonin: 1.64 * s/p OR (04/24/18)-->bx of lung taken, removal of purulent material from right lung. Anterior and posterior chest tubes. 1 units given in OR of PRBC; 2 units post RBC 2). Acute Respiratory Failure secondary to Pneumonia/Empyema * Patient was intubated and placed on vent on evening 04/15/18 after he started to have DTs * Patient remains on Vent, intubated, high FiO2 * Currently on Fentanyl and Versed; off Propofol 04/24/18 off Precdex * Patient switched from Precedex to Versed to rule out contributing factor to fever (R Patrick note in nursing note 04/25/18) 3). Alcohol Withdrawal DTs * Currently on Fentanyl and Versed * MVI tab PO daily * Vitamin B1 tab PO daily * Folic Acid 1 tab PO daily 4). Bilateral Perinephric Stranding (resolved) As seen on CT Abdomen/Pelvis * On exam 04/14/18 and 04/15/18 there was NO CVA tenderness * UA shows NEGATIVE Nitrate, Ketones, and LE * Repeat urine cultures are negative * Patient has roman 5). Alcohol Abuse * Patient revealed 04/14/18 that he drank shots and multiple beers twice a week but told overnight team at time of admission that he did this 5x per week. * Last drink was this past Friday04/10/18 as per patient * MVI tab PO daily * Vitamin B1 tab PO daily * Folic Acid 1 tab PO daily 6). Hyponatremia (resolved) * Likely SIADH * TSH and T4 are normal * Morning Cortisol normal * Triglycerides normal * Urine Osm was high * Urine Na was 35 7). Tachycardia * Postoperative 2 from cardiothoracic surgery 8). Elevated LFTs and Hepatic Parenchymal Disease (as seen CT Abdomen) Likely secondary to suspected alcohol abuse * Hepatitis Panel negative * HIV negative * UDS negative * On CT scan noted hepatomegaly * uptrending mildly 9). Hypokalemia * monitor and replete 10). Hypomagnesemia * monitor and replete 11). Constipation * As seen on Obstruction Series * Senokot * Colace 100 mg PO 3x/day * Had bowel movement 04/15/18 * Patient to get an enema 04/21/18--> had bowel movement 04/22/18 * Patient distended on exam yesterday; improved had significant bowel movement 04/25/18 per nursing 12) Cephalic DVTS * Patient was on therapeutic lovenox 100mg subq12 Hr held prior to OR 04/23/18 13). Prophylaxis * DVT risk score of 2 based upon Age and diagnosis of Sepsis: lovenox 40mg subqdaily Bilateral SCDs * As patient was intubated 04/15/18, Protonix 40 mg IV 1x/day was started * Jevity was given via OGT while he was intubated * Lactobacillus PO 2x/day * Therapuetic Lovenox 100 mg SC Q12H held 04/23/18 * TLC placed on 04/22/18 Updates: 04/16/18: Mary was at bedside and he she was updated on patient's recent developements and status with the help of ICU residen Dr. Severino Tate 04/17/18: Two Sisters, Cousin, Nephew were at bedside and he she was updated on patient's recent developements and status with the help of ICU residen Dr. Severino Tate 04/18/18: with the help of brother in law Carson (who speaks Belarusian) family members included Mary, were udated as to patient status 04/19/18: Two Sisters at the bedside were updated with the help of PATRICIA Moreno who translated Angolan 04/20/18: spoke with and sister at bedside 04/21/18: no family present at bedside 04/22/18: I was present at bedside with cardiothoracic surgeon, ICU resident Janay Veronica as well as will need a thoracic surgery explained that patient would need a decortication/VATS planned for this Friday. Given patient's empyema and not improving status. is aware that the surgery carries greater risk and that the and depending on the nature of the surgery will ultimately affect patient's ability to be extubated. She is aware that we hope for good outcomes however she does understand it does carry a high mortality. Dr. Tate at bedside translating on behalf of chronic cardiothoracic surgeon as well. 04/24/17: spoke with at bedside. Patient seen postoperative: in pain. off propofol. pending official operative note. 04/25/18: Spoke with family at bedside; patient is status post 3 units PRBC. Follow-up cultures. 04/27/18: NO family at bedside 04/28/18: Updated sister Miranda 04/29/18: NO family at bedside 04/30/18: Mary who was at the bedside, was updated to patient status Franki Nguyen D.O. Objective - Vital Signs/Intake and Output Vital Signs (last 24 hours): Temp Pulse Resp BP Pulse Ox 99.0 F 106 H 25 H 120/71 96 04/30/18 08:00 04/30/18 12:01 04/30/18 12:01 04/30/18 12:01 04/30/18 12:01 Intake and Output: 04/30/18 04/30/18 06:59 18:59 Intake Total 1060 Output Total 2500 Balance -1440 - Medications Medications: Current Medications Albuterol/Ipratropium (Duoneb 3 Mg/0.5 Mg (3 Ml) Ud) 3 ml INH RQ6 [facility] Last Admin: 04/30/18 09:44 Dose: 3 ml Docusate Sodium (Colace) 100 mg PO TID [facility] Last Admin: 04/30/18 13:32 Dose: 100 mg Enoxaparin Sodium (Lovenox) 40 mg SC DAILY [facility] Last Admin: 04/30/18 09:13 Dose: 40 mg Folic Acid (Folic Acid) 1 mg PO DAILY [facility] Last Admin: 04/30/18 09:13 Dose: 1 mg Meropenem 1 gm/ Sodium (Chloride) 100 mls @ 100 mls/hr IVPB Q8H [facility]; Protocol Last Admin: 04/30/18 13:32 Dose: 100 mls/hr Vancomycin HCl 1,500 mg/ (Sodium Chloride) 500 mls @ 200 mls/hr IVPB Q12H [facility]; Protocol Last Admin: 04/30/18 03:00 Dose: 200 mls/hr Ibuprofen (Motrin Tab) 400 mg PO Q6H PRN PRN Reason: fever Last Admin: 04/30/18 01:39 Dose: 400 mg Lactobacillus Acidophilus (Lactobacillus) 1 cap PO BID [facility] Last Admin: 04/30/18 09:17 Dose: 1 cap Morphine Sulfate (Morphine) 2 mg IVP Q4 PRN PRN Reason: Pain, severe (8-10) Last Admin: 04/30/18 10:05 Dose: 2 mg Multivitamins (Hexavitamin) 1 tab PO DAILY [facility] Last Admin: 04/30/18 09:13 Dose: 1 tab Pantoprazole Sodium (Protonix Inj) 40 mg IVP DAILY [facility] Last Admin: 04/30/18 09:13 Dose: 40 mg Potassium Chloride (K-Dur 20 Meq Er Tab) 40 meq PO DAILY [facility] Last Admin: 04/30/18 09:42 Dose: 40 meq Sennosides (Senokot Tab) 8.6 mg PO BID PRN PRN Reason: Constipation Thiamine HCl (Vitamin B1 Tab) 100 mg PO DAILY [facility] Last Admin: 04/30/18 09:13 Dose: 100 mg Tramadol HCl (Ultram) 25 mg PO TID PRN PRN Reason: Pain, moderate (4-7) Last Admin: 04/30/18 12:58 Dose: 25 mg - Labs Labs: 04/30/18 05:49 04/30/18 05:47 PT 13.7 SECONDS (9.7-12.2) H 04/24/18 06:26 INR 1.3 04/24/18 06:26 APTT 42 SECONDS (21-34) H 04/24/18 06:26
--- NOTE | 2018-04-30 14:23 | CP.PCM.PN ---
Subjective - Date & Time of Evaluation Date of Evaluation: 04/30/18 Time of Evaluation: 14:00 - Subjective Subjective: dictated Objective - Vital Signs/Intake and Output Vital Signs (last 24 hours): Temp Pulse Resp BP Pulse Ox 99.0 F 106 H 25 H 120/71 96 04/30/18 08:00 04/30/18 12:01 04/30/18 12:01 04/30/18 12:01 04/30/18 12:01 Intake and Output: 04/30/18 04/30/18 06:59 18:59 Intake Total 1060 Output Total 2500 Balance -1440 - Medications Medications: Current Medications Albuterol/Ipratropium (Duoneb 3 Mg/0.5 Mg (3 Ml) Ud) 3 ml INH RQ6 [facility] Last Admin: 04/30/18 09:44 Dose: 3 ml Docusate Sodium (Colace) 100 mg PO TID [facility] Last Admin: 04/30/18 13:32 Dose: 100 mg Enoxaparin Sodium (Lovenox) 40 mg SC DAILY [facility] Last Admin: 04/30/18 09:13 Dose: 40 mg Folic Acid (Folic Acid) 1 mg PO DAILY [facility] Last Admin: 04/30/18 09:13 Dose: 1 mg Meropenem 1 gm/ Sodium (Chloride) 100 mls @ 100 mls/hr IVPB Q8H [facility]; Protocol Last Admin: 04/30/18 13:32 Dose: 100 mls/hr Vancomycin HCl 1,500 mg/ (Sodium Chloride) 500 mls @ 200 mls/hr IVPB Q12H [facility]; Protocol Last Admin: 04/30/18 03:00 Dose: 200 mls/hr Ibuprofen (Motrin Tab) 400 mg PO Q6H PRN PRN Reason: fever Last Admin: 04/30/18 01:39 Dose: 400 mg Lactobacillus Acidophilus (Lactobacillus) 1 cap PO BID [facility] Last Admin: 04/30/18 09:17 Dose: 1 cap Morphine Sulfate (Morphine) 2 mg IVP Q4 PRN PRN Reason: Pain, severe (8-10) Last Admin: 04/30/18 10:05 Dose: 2 mg Multivitamins (Hexavitamin) 1 tab PO DAILY [facility] Last Admin: 04/30/18 09:13 Dose: 1 tab Pantoprazole Sodium (Protonix Inj) 40 mg IVP DAILY [facility] Last Admin: 04/30/18 09:13 Dose: 40 mg Potassium Chloride (K-Dur 20 Meq Er Tab) 40 meq PO DAILY [facility] Last Admin: 04/30/18 09:42 Dose: 40 meq Sennosides (Senokot Tab) 8.6 mg PO BID PRN PRN Reason: Constipation Thiamine HCl (Vitamin B1 Tab) 100 mg PO DAILY [facility] Last Admin: 04/30/18 09:13 Dose: 100 mg Tramadol HCl (Ultram) 25 mg PO TID PRN PRN Reason: Pain, moderate (4-7) Last Admin: 04/30/18 12:58 Dose: 25 mg - Labs Labs: 04/30/18 05:49 04/30/18 05:47 PT 13.7 SECONDS (9.7-12.2) H 04/24/18 06:26 INR 1.3 04/24/18 06:26 APTT 42 SECONDS (21-34) H 04/24/18 06:26
--- NOTE | 2018-04-30 19:37 | PN ---
DATE: 04/30/2018 SUBJECTIVE: The patient is on his off respirator. He is breathing easier. He is still tachycardic though. He is waiting to have the Dopplers done. He does have DVT of the upper extremities in the past. PHYSICAL EXAMINATION: VITAL SIGNS: Temperature is 99, heart rate of 112 at this time, respirations are 25, saturation 96%, blood pressure is 120/71. HEENT: Head is atraumatic, normocephalic. NECK: Supple. LUNGS: Clear and decreased breath sounds on bases; has two chest tubes. ABDOMEN: Soft, nontender. EXTREMITIES: Right leg appears to be more swollen than the left and DVT, Dopplers have been done. PLAN: Also, he is on Lovenox, folic acid, lactobacillus. He is on meropenem. I have discontinued the Amikacin and we will leave him on vancomycin as well as meropenem at this time and will follow. I will be away for this weekend till Friday. If any help is needed, do call Dr. Lopez who would be covering me. The patient came in with by with empyema and pneumonia and underwent a VATS procedure and was intubated initially, and now is extubated and he also has issues with DVT. Renea Spring MD
[2018-05-01] MEDS: Tramadol 25 mg PO PRN ×2 (00:51→09:23)
[2018-05-01] MEDS: Albuterol-Ipratrop 3 mg / 0.5 (3 ml) UD INH SCH ×4 (01:55→19:37)
[2018-05-01] MEDS: Meropenem 1 GM in Sodium Chloride 0.9% 100 ML IVPB SCH ×3 (05:59→21:30)
[2018-05-01 06:36] LABS: ALB/GLOB RATIO 0.6 (1.0-2.1); ALBUMIN 2.3 g/dL (3.5-5.0); ALT/SGPT 51 U/L (21-72); AST/SGOT 53 U/L (17-59); BLOOD UREA NITROGEN 6 mg/dL (9-20); CALCIUM 7.7 mg/dl (8.6-10.4); GFR NON-AFRICAN AMERICAN > 60
--- NOTE | 2018-05-01 07:04 | CP.PCM.PN ---
Subjective - Date & Time of Evaluation Date of Evaluation: 05/01/18 Time of Evaluation: 07:04 Objective - Vital Signs/Intake and Output Vital Signs (last 24 hours): Temp Pulse Resp BP Pulse Ox 100.5 F H 100 H 21 152/89 H 95 05/01/18 04:00 05/01/18 04:00 05/01/18 04:00 05/01/18 04:00 05/01/18 04:00 Intake and Output: 05/01/18 05/01/18 06:59 18:59 Intake Total 1700 Output Total 2570 Balance -870 - Medications Medications: Current Medications Albuterol/Ipratropium (Duoneb 3 Mg/0.5 Mg (3 Ml) Ud) 3 ml INH RQ6 [facility] Last Admin: 05/01/18 01:55 Dose: 3 ml Docusate Sodium (Colace) 100 mg PO TID [facility] Last Admin: 04/30/18 18:16 Dose: 100 mg Enoxaparin Sodium (Lovenox) 40 mg SC DAILY [facility] Last Admin: 04/30/18 09:13 Dose: 40 mg Folic Acid (Folic Acid) 1 mg PO DAILY [facility] Last Admin: 04/30/18 09:13 Dose: 1 mg Meropenem 1 gm/ Sodium (Chloride) 100 mls @ 100 mls/hr IVPB Q8H [facility]; Protocol Last Admin: 05/01/18 05:59 Dose: 100 mls/hr Vancomycin HCl 1,500 mg/ (Sodium Chloride) 500 mls @ 200 mls/hr IVPB Q12H [facility]; Protocol Last Admin: 05/01/18 03:00 Dose: 200 mls/hr Ibuprofen (Motrin Tab) 400 mg PO Q6H PRN PRN Reason: fever Last Admin: 04/30/18 01:39 Dose: 400 mg Lactobacillus Acidophilus (Lactobacillus) 1 cap PO BID [facility] Last Admin: 04/30/18 18:17 Dose: Not Given Morphine Sulfate (Morphine) 2 mg IVP Q4 PRN PRN Reason: Pain, severe (8-10) Multivitamins (Hexavitamin) 1 tab PO DAILY [facility] Last Admin: 04/30/18 09:13 Dose: 1 tab Pantoprazole Sodium (Protonix Inj) 40 mg IVP DAILY [facility] Last Admin: 04/30/18 09:13 Dose: 40 mg Potassium Chloride (K-Dur 20 Meq Er Tab) 40 meq PO DAILY [facility] Last Admin: 04/30/18 09:42 Dose: 40 meq Sennosides (Senokot Tab) 8.6 mg PO BID PRN PRN Reason: Constipation Thiamine HCl (Vitamin B1 Tab) 100 mg PO DAILY [facility] Last Admin: 04/30/18 09:13 Dose: 100 mg Tramadol HCl (Ultram) 25 mg PO TID PRN PRN Reason: Pain, moderate (4-7) Last Admin: 05/01/18 00:51 Dose: 25 mg - Labs Labs: 04/30/18 05:49 05/01/18 06:11 PT 13.7 SECONDS (9.7-12.2) H 04/24/18 06:26 INR 1.3 04/24/18 06:26 APTT 42 SECONDS (21-34) H 04/24/18 06:26
[2018-05-01 07:11] LABS: BASO # 0.3 K/uL (0.0-0.2); BASO % 2.6 % (0.0-2.0); EOS # 0.2 K/uL (0.0-0.7); EOS % 2.1 % (0.0-4.0); HEMOGLOBIN 9.5 g/dL (12.0-18.0); LYMPH # 1.1 K/uL (1.0-4.3); LYMPH % 10.9 % (20.0-40.0); MEAN CORPUSCULAR HEMOGLOBIN 29.6 pg (27.0-31.0); MEAN CORPUSCULAR HGB CONC 32.9 g/dL (33.0-37.0); MEAN PLATELET VOLUME 9.4 fL (7.2-11.7); MONO # 1.1 K/uL (0.0-0.8); MONO % 11.7 % (0.0-10.0); NEUT # 7.1 K/uL (1.8-7.0); NEUT % 72.7 % (50.0-75.0); NRBC % 0.1 % (0.0-2.0); RBC 3.21 Mil/uL (4.40-5.90); RED CELL DISTRIBUTION WIDTH 13.9 % (11.5-14.5); WHITE BLOOD COUNT 9.8 K/uL (4.8-10.8)
--- NOTE | 2018-05-01 08:04 | CP.PCM.PN ---
Subjective - Date & Time of Evaluation Date of Evaluation: 05/01/18 Time of Evaluation: 08:02 - Subjective Subjective: SURGERY NOTE FOR DR. HERNANDEZ 43M seen and examined at bedside. Patient denies chest pain, denies shortness of breath. Tolerating room air. Chest tubes in place without air leak. Anterior tube - 220cc/24hrs Posterior tube - 170cc/24hrs Objective - Vital Signs/Intake and Output Vital Signs (last 24 hours): Temp Pulse Resp BP Pulse Ox 100.5 F H 100 H 21 152/89 H 95 05/01/18 04:00 05/01/18 04:00 05/01/18 04:00 05/01/18 04:00 05/01/18 04:00 Intake and Output: 05/01/18 05/01/18 06:59 18:59 Intake Total 1700 Output Total 2570 Balance -870 - Medications Medications: Current Medications Albuterol/Ipratropium (Duoneb 3 Mg/0.5 Mg (3 Ml) Ud) 3 ml INH RQ6 [facility] Last Admin: 05/01/18 01:55 Dose: 3 ml Docusate Sodium (Colace) 100 mg PO TID [facility] Last Admin: 04/30/18 18:16 Dose: 100 mg Enoxaparin Sodium (Lovenox) 40 mg SC DAILY [facility] Last Admin: 04/30/18 09:13 Dose: 40 mg Folic Acid (Folic Acid) 1 mg PO DAILY [facility] Last Admin: 04/30/18 09:13 Dose: 1 mg Meropenem 1 gm/ Sodium (Chloride) 100 mls @ 100 mls/hr IVPB Q8H [facility]; Protocol Last Admin: 05/01/18 05:59 Dose: 100 mls/hr Vancomycin HCl 1,500 mg/ (Sodium Chloride) 500 mls @ 200 mls/hr IVPB Q12H [facility]; Protocol Last Admin: 05/01/18 03:00 Dose: 200 mls/hr Ibuprofen (Motrin Tab) 400 mg PO Q6H PRN PRN Reason: fever Last Admin: 04/30/18 01:39 Dose: 400 mg Lactobacillus Acidophilus (Lactobacillus) 1 cap PO BID [facility] Last Admin: 04/30/18 18:17 Dose: Not Given Morphine Sulfate (Morphine) 2 mg IVP Q4 PRN PRN Reason: Pain, severe (8-10) Multivitamins (Hexavitamin) 1 tab PO DAILY [facility] Last Admin: 04/30/18 09:13 Dose: 1 tab Pantoprazole Sodium (Protonix Inj) 40 mg IVP DAILY [facility] Last Admin: 04/30/18 09:13 Dose: 40 mg Potassium Chloride (K-Dur 20 Meq Er Tab) 40 meq PO DAILY [facility] Last Admin: 04/30/18 09:42 Dose: 40 meq Sennosides (Senokot Tab) 8.6 mg PO BID PRN PRN Reason: Constipation Thiamine HCl (Vitamin B1 Tab) 100 mg PO DAILY [facility] Last Admin: 04/30/18 09:13 Dose: 100 mg Tramadol HCl (Ultram) 25 mg PO TID PRN PRN Reason: Pain, moderate (4-7) Last Admin: 05/01/18 00:51 Dose: 25 mg - Labs Labs: 05/01/18 06:11 05/01/18 06:11 PT 13.7 SECONDS (9.7-12.2) H 04/24/18 06:26 INR 1.3 04/24/18 06:26 APTT 42 SECONDS (21-34) H 04/24/18 06:26 - Constitutional Appears: Non-toxic, No Acute Distress - Respiratory Exam Respiratory Exam: NORMAL BREATHING PATTERN Additional comments: Right Chest tubes in place without air leak. Anterior tube - 220cc/24hrs Posterior tube - 170cc/24hrs - Cardiovascular Exam Cardiovascular Exam: REGULAR RHYTHM, +S1, +S2 - GI/Abdominal Exam GI & Abdominal Exam: Soft. absent: Distended, Firm, Guarding, Rigid, Tenderness, Rebound - Neurological Exam Neurological Exam: Alert, Awake Assessment and Plan - Assessment and Plan (Free Text) Assessment: 43M s/p thoracotomy, decortication, and lung biopsy POD#7 Plan: - Monitor chest tube output - daily CXR Further recs discuss with Dr. Susana Hernandez, PGY3
--- NOTE | 2018-05-01 09:16 | RAD ---
Date of service: 05/01/2018 HISTORY: chest tubes; s/p thoractomy COMPARISON: 04/30/2018. FINDINGS: There is interval removal of the right IJV line. LUNGS: Stable appearance of the right lung with opacification of the mid and lower lung. The left lung is well inflated and clear. PLEURA: Stable position of 2 right-sided chest tubes projecting over the apex. There is redemonstration linear lucency in the right lateral mid lung. Which may represent loculated pneumothorax or aerated lung. CARDIOVASCULAR: Persistent moderate cardiomegaly. No aortic atherosclerotic calcifications present. OSSEOUS STRUCTURES: Within normal limits for the patient's age. VISUALIZED UPPER ABDOMEN: Normal. OTHER FINDINGS: None. IMPRESSION: Little interval change in opacification of the right mid lung and lower lobe which may represent consolidation or effusion. Stable position of 2 right-sided chest tubes terminating in the apex. No other significant interval change.
[2018-05-01] MEDS: Enoxaparin 40 mg Syringe SC SCH (09:24)
[2018-05-01] MEDS: Multiple Vitamins Tab PO SCH (09:24)
[2018-05-01] MEDS: Lactobacillus Acidophilus 500 MU Cap PO SCH ×2 (09:24→17:51)
[2018-05-01] MEDS: Potassium Chloride 20 mEq ER Tab PO SCH (09:25)
--- NOTE | 2018-05-01 11:48 | PCM.PSYCH ---
Initial Psychiatric Evaluation - Initial Psychiatric Evaluation Type of Admission: Voluntary Legal Status: Capacity Chief Complaint (in patient's own words): "I'm tired" History of Present Illness and Precipitating Events: Patient is seen, chart reviewed, and case discussed. 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 He is currently in the ICU for sepsis secondary to pneumonia and suspected empysema. As per , patient has been experiencing periods of confusion where he speaks nonsensical phrases and becomes mentally altered. Patient was recently intubated for about a week. Patient also admits to drinking 6 glasses of alcohol a day and has been drinking heavily for the past 6 years. As per chart review, patient has a history of DTs and aspiration pneumonia secondary to alcohol abuse. He states that he has never sought treatment for alcohol, never been to a detox, rehab, or been on maintenance medication. Patient denies using any other substances including heroin, cigarettes, cocaine, and pills. Currently, the pt is oriented x3, has 3/3 memory in immediate recall and 5-min recall, was able to count the last 3 presidents and spell backwards. he admits to irregular sleep in ICU Past Psychiatric History: none Family Psych History: unknown PMHx: empyema, alcohol abuse, DVT, pneumonia, DTs, aspiration pneumonia Current Medications: Active Medications Generic Name Dose Route Start Last Admin Trade Name Freq PRN Reason Stop Dose Admin Albuterol/Ipratropium 3 ml 04/15/18 08:00 05/01/18 07:55 Duoneb 3 Mg/0.5 Mg (3 Ml) Ud INH 3 ml RQ6 JESUS Administration Docusate Sodium 100 mg 04/14/18 18:30 05/01/18 09:25 Colace PO 100 mg TID JESUS Administration Enoxaparin Sodium 40 mg 04/27/18 10:00 05/01/18 09:24 Lovenox SC 40 mg DAILY JESUS Administration Folic Acid 1 mg 04/14/18 10:00 05/01/18 09:25 Folic Acid PO 1 mg DAILY JESUS Administration Meropenem 1 gm/ Sodium 100 mls @ 100 mls/hr 04/16/18 21:00 05/01/18 05:59 Chloride IVPB 100 mls/hr Q8H JESUS Administration Protocol Vancomycin HCl 1,500 mg/ 500 mls @ 200 mls/hr 04/22/18 03:00 05/01/18 03:00 Sodium Chloride IVPB 200 mls/hr Q12H JESUS Administration Protocol Ibuprofen 400 mg 04/19/18 03:31 04/30/18 01:39 Motrin Tab PO 400 mg Q6H PRN Administration fever Lactobacillus Acidophilus 1 cap 04/30/18 10:00 05/01/18 09:24 Lactobacillus PO 1 cap BID JESUS Administration Morphine Sulfate 2 mg 05/01/18 06:59 Morphine IVP Q4 PRN Pain, severe (8-10) Multivitamins 1 tab 04/14/18 10:00 05/01/18 09:24 Hexavitamin PO 1 tab DAILY JESUS Administration Pantoprazole Sodium 40 mg 04/14/18 10:00 05/01/18 09:25 Protonix Inj IVP 40 mg DAILY JESUS Administration Potassium Chloride 40 meq 04/30/18 10:00 05/01/18 09:25 K-Dur 20 Meq Er Tab PO 40 meq DAILY JESUS Administration Sennosides 8.6 mg 04/30/18 12:29 05/01/18 09:24 Senokot Tab PO 8.6 mg BID PRN Administration Constipation Thiamine HCl 100 mg 04/14/18 10:00 05/01/18 09:24 Vitamin B1 Tab PO 100 mg DAILY JESUS Administration Tramadol HCl 25 mg 04/30/18 12:48 05/01/18 09:23 Ultram PO 25 mg TID PRN Administration Pain, moderate (4-7) Past Psychiatric History - Past Psychiatric History Previous Treatment History: None Pertinent Medical Hx (Current Medical&Sleep Prob, Allergies): Allergies Allergy/AdvReac Type Severity Reaction Status Date / Time No Known Allergies Allergy Verified 04/13/18 20:35 No Known Home Med 04/13/18 Review of Systems - Neurological Neurological: Confusion (occasionally) - Psychiatric Psychiatric: Abnormal Sleep Pattern, Anxiety, Difficulty Concentrating. absent: Auditory Hallucinations, Depression, Hallucinations, Homicidal Ideation, Suicidal Ideation Mental Status Examination - Personal Presentation Personal Presentation: Looks stated age - Affect Affect: Constricted - Motor Activity Motor Activity: Calm - Reliability in Providing Information Reliability in Providing Information: Good - Speech Speech: Organized - Mood Mood: Anxious - Formal Thought Process Formal Thought Process: No Impairment - Cognitive Functions Orientation: Person, Place, Situation, Time Sensorium: Alert Attention/Concentration: Easily distracted Estimate of Intelligence: Average Judgement: Intact, as evidence by: Insight regarding need for hospitalization Memory: Remote intact, as evidenced by: Abilit to recall sig. life events - Risk Risk: Diminished functioning - Strength & Assets Inventory Strength & Assets Inventory: Family support, Cooperative - Limitations Limitations: Other DSM 5 DX - DSM 5 DSM 5 Diagnosis: Alcohol use disorder, moderate to severe r/o delirium due to current medical history - Recommended/Plan of Treatment Treatment Recommendations and Plan of Treatment: No need for psych treatment except for prn sleeping meds, ie Trazodone Continue medical treatment Frequent support, orientation His is explained of his condition and prognosis (good) 33 min Projected ELOS: 4-5 days Prognosis: good with treatment
--- NOTE | 2018-05-01 14:36 | CT ---
Date of service: 05/01/2018 PROCEDURE: CT HEAD WITHOUT CONTRAST. HISTORY: Confusion periods COMPARISON: None available. TECHNIQUE: Axial computed tomography images were obtained through the head/brain without intravenous contrast. Radiation dose: Total exam DLP = 1132.57 mGy-cm. This CT exam was performed using one or more of the following dose reduction techniques: Automated exposure control, adjustment of the mA and/or kV according to patient size, and/or use of iterative reconstruction technique. FINDINGS: HEMORRHAGE: No intracranial hemorrhage. BRAIN: Johnson-white matter differentiation is preserved. There is no mass, mass effect or abnormal extra-axial fluid collection. There is no territorial infarction. The midline sagittal structures are normal. VENTRICLES: There is mild age advanced global parenchymal volume loss and proportionate enlargement of the ventricles and cortical sulci. CALVARIUM: There is no calvarial fracture or extracranial soft tissue swelling. PARANASAL SINUSES: Predominantly clear. MASTOID AIR CELLS: Small mastoid effusions. OTHER FINDINGS: None. IMPRESSION: No acute intracranial abnormality. Mild age advanced global parenchymal volume loss. Small mastoid effusions.
--- NOTE | 2018-05-01 17:36 | CP.PCM.PN ---
Subjective - Date & Time of Evaluation Date of Evaluation: 05/01/18 Time of Evaluation: 17:00 - Subjective Subjective: Hospitalist Progress Note Patient was seen and examined at 5:00 PM ICU Bed 6 05/01/18 with the help of ICU Resident Dr Severino Tate who translated Swazi S/P Thoracotomy Right 04/24/18 with Chest Tube x 2 placement Blood Culture 04/25/18 is negative at 5 days Lung Tissue Culture 04/24/18 is negative to date Pleural Fluid Culture 04/24/18 is negative to date Pleural Fluid Fungal Culture 04/24/18 is negative Pleural Fluid Mycobacterium Culture 04/24/18 shows NO AFB Continues with fevers with Tmax 100.5 F around 4 AM 05/01/18. Therefore repeat Blood Culture and Urine Culture have been ordered HgB/Hct continue to be stable and patient is S/P 3 Units PRBC over the weekend 04/24/18 At the time he was on therapeutic Lovenox 100 mg SC Q12H for Bilateral Cephalic Vein DVTs seen on Duplex 04/21/17 and this was held due to the drop in HgB/Hct. HgB/Hct remained stable after patient was given therapeutic lovenox trial of 100 mg SC on 04/28/18. I spoke with ICU Resident Dr. James Tate who had spoken with Surgeon Dr. Meza 04/30/18 who did NOT recommend therapeutic Lovenox in light of the chest tubes on the right Repeat Venous Doppler of the Bilateral UE did show abnormality on preliminary reading. Will follow up official report. If the thrombosis are still present in the Cephalic Veins, then will hold further therapeutic anticoagulation as these veins are actually supercial veins of the arms. Mary explained 04/30/18 that there have been episodes during the day where the patients appears to be confused to her. At times during a conversation he will just say "Whose on the elevator" and does not seem to know where he is. At the time of my exam 05/01/18 he continues to be aware of where he is, why he is here, day/date/year/president, is able to follow explanation as to his status and asks appropriate questions. Could this be secondary to long history of Alcohol Abuse? ICU psychosis? CT Head without contrast 05/01/18 showed mild age advanced global parenchymal volume loss Follow up any recommendations from Psychiatry Currently upon FULL ROS: NO chest pain Some soreness continues at the site of Right Chest Tube insertion NO SOB/Cough NO dysphagia/odynophagia NO abdominal pain Moving his bowels normally NO burning/pain with urination NO headaches NO new changes in vision NO new changes in hearing NO other complaints upon FULL ROS General: Extubated 04/28/18 and breathing comfortably on 2L NC. AAOX3 HEENT: NCA, Pupils are round/equal/reactive to light, NO lymphadenopathy, NO thyromegaly, NO pharyngeal erythema/exudate Cardio: NS1 and NS2, NO M/R/G Resp: Course breath sounds diffusely GI: BSx4, Soft, Central Obesity Extremities: 1+ pitting edema right leg which appears to be larger in circumference than the left, Capillary refill is 2 seconds, Pulses are strong and equal Neuro: CN II through XII are grossly intact Please see Assessment and Plans below for summary of care Assessment/Plan 1). Sepsis Secondary to Right Middle and Lower Lobe Pneumonia and Suspected Empyema * Infectious Disease (Dr. Spring) on case * Cardiothoracic Surgery Dr. Meza: Chest tube placed 04/18/18 and pleural fluid culture will have to be followed up * Post operative note April 24, 2018. Patient underwent a right thoracotomy, decortication of the right lung, drainage of the right lung infection/exudates, right middle inferior lobe biopsy performed, right-sided chest tube placement x2. Specimen noted portion of the middle lobe of the right lobe, portion of the lower lobe on right lung, right lung fluid/hematoma . * 04/24/18 Tissue Culture: No growth after 24 hours * 04/24/18 Pleural Fluid: no growth after 24 hours * 04/24/18 Lung: No growth after 24 hours * 04/24/18 Lung: No growth after 24 hours * Leukocytosis, fever, pneumonia/empyema * CT chest from Apr 15, 2018. Cardiomegaly. Trace pericardial effusion. Cor onary artery calcifications. Extensive consolidation throughout the right hemithorax with relative sparing of the right lung apex. Small loculated right-sided pleural effusion measuring approximately 2.1 cm in maximum depth superinfection is not excluded. Mild left basal bibasilar atelectasis. Left hemithorax. Otherwise grossly clear. Limited visualization of the upper abdomen reveals hepatomegaly. Diffuse hepatic steatosis with 2 more focal hypodense regions favored to represent focal fatty infiltration. * CT chest from Apr 17 was suboptimal. No evidence of central pulmonary embolus. Interval worsening of airspace consolidation at the right lung contains foci of low-attenuation possible fluid collection since prior study interval worsening of the right-sided multiple likely request for sacral pleural effusion. * CT chest from 04/20/2018 noted for decreased right pleural effusion. Right chest tube. Extensive right lower lobe atelectasis with right middle lobe and left lower lobe segmental atelectasis. Small left pleural effusion. No pneumothorax. Endotracheal tube and nasogastric tube noted. * Chest xray (04/25/18): postop changes are slowly resolving at the right hemithorax as post decorticulation previously. Tube and catheters unchanged in position with right basilar atectasis favored over infiltrate. Mild right pleural effusion is noted including the minor fissue. Limited left perihilar opacity density noted. * Azithromycin and Rocephin were discontinued on 04/15/18 * Zosyn 3.375 gm IV Q6H (04/15/18 through 04/16/18) * Tamiflu 75 mg PO 2x/day (04/14/18 through 04/19/18) * Gentamicin 80mg IV Q12H (04/21/18 through 04/25/18) * Micafungin 100mg IV Q24H (04/23/18 through 04/27/18) * Clindamycin 900 mg IV Q8H (04/16/18 through 04/27/18) Current IV Abx: * Vancomycin 1.25 gm IV Q12H (04/15/18) dose adjusted to Vancomycin 1500gm IV Q12H (active since 04/21/18) * Check random vancomycin level * Amikacin 500mg IVPB Q12H (active since 04/25/18) * Meropenem 1 gm IV Q8H (04/16/18) * Blood Culture 04/13/18: is negative to date * Blood culture 04/21/18: negative. * Urine culture: 04/21/18 * Pleural fluid (04/18/18): no anaerobes isolated. Fungal culture--prelim * Pleural fluid (04/18/18): no growth. * Bronchial Washings: 04/19/18: Normal saphrophytic john paul, fungal culture-prelim * Myocbacterial Culture--Prelim:pending * Procalcitonin: 1.64 * s/p OR (04/24/18)-->bx of lung taken, removal of purulent material from right lung. Anterior and posterior chest tubes. 1 units given in OR of PRBC; 2 units post RBC 2). Acute Respiratory Failure secondary to Pneumonia/Empyema * Patient was intubated and placed on vent on evening 04/15/18 after he started to have DTs * Patient remains on Vent, intubated, high FiO2 * Currently on Fentanyl and Versed; off Propofol 04/24/18 off Precdex * Patient switched from Precedex to Versed to rule out contributing factor to fever (R Nguyen note in nursing note 04/25/18) 3). Alcohol Withdrawal DTs * Currently on Fentanyl and Versed * MVI tab PO daily * Vitamin B1 tab PO daily * Folic Acid 1 tab PO daily 4). Bilateral Perinephric Stranding (resolved) As seen on CT Abdomen/Pelvis * On exam 04/14/18 and 04/15/18 there was NO CVA tenderness * UA shows NEGATIVE Nitrate, Ketones, and LE * Repeat urine cultures are negative * Patient has roman 5). Alcohol Abuse * Patient revealed 04/14/18 that he drank shots and multiple beers twice a week but told overnight team at time of admission that he did this 5x per week. * Last drink was this past Friday04/10/18 as per patient * MVI tab PO daily * Vitamin B1 tab PO daily * Folic Acid 1 tab PO daily 6). Hyponatremia (resolved) * Likely SIADH * TSH and T4 are normal * Morning Cortisol normal * Triglycerides normal * Urine Osm was high * Urine Na was 35 7). Tachycardia * Postoperative 2 from cardiothoracic surgery 8). Elevated LFTs and Hepatic Parenchymal Disease (as seen CT Abdomen) Likely secondary to suspected alcohol abuse * Hepatitis Panel negative * HIV negative * UDS negative * On CT scan noted hepatomegaly * uptrending mildly 9). Hypokalemia * monitor and replete 10). Hypomagnesemia * monitor and replete 11). Constipation * As seen on Obstruction Series * Senokot * Colace 100 mg PO 3x/day * Had bowel movement 04/15/18 * Patient to get an enema 04/21/18--> had bowel movement 04/22/18 * Patient distended on exam yesterday; improved had significant bowel movement 04/25/18 per nursing 12) Cephalic DVTS * Patient was on therapeutic lovenox 100mg subq12 Hr held prior to OR 04/23/18 13). Prophylaxis * DVT risk score of 2 based upon Age and diagnosis of Sepsis: lovenox 40mg subqdaily Bilateral SCDs * As patient was intubated 04/15/18, Protonix 40 mg IV 1x/day was started * Jevity was given via OGT while he was intubated * Lactobacillus PO 2x/day * Therapuetic Lovenox 100 mg SC Q12H held 04/23/18 * TLC placed on 04/22/18 Updates: 04/16/18: Mary was at bedside and he she was updated on patient's recent developements and status with the help of ICU residen Dr. Severino Tate 04/17/18: Two Sisters, Cousin, Nephew were at bedside and he she was updated on patient's recent developements and status with the help of ICU residen Dr. Severino Tate 04/18/18: with the help of brother in law Carson (who speaks [place] Citizen) family members included Mary, were udated as to patient status 04/19/18: Two Sisters at the bedside were updated with the help of PATRICIA Moreno who translated Swazi 04/20/18: spoke with and sister at bedside 04/21/18: no family present at bedside 04/22/18: I was present at bedside with cardiothoracic surgeon, ICU resident Janay Martin as well as will need a thoracic surgery explained that patient would need a decortication/VATS planned for this Friday. Given patient's empyema and not improving status. is aware that the surgery carries greater risk and that the and depending on the nature of the surgery will ultimately affect patient's ability to be extubated. She is aware that we hope for good outcomes however she does understand it does carry a high mortality. Dr. Tate at bedside translating on behalf of chronic cardiothoracic surgeon as well. 04/24/17: spoke with at bedside. Patient seen postoperative: in pain. off propofol. pending official operative note. 04/25/18: Spoke with family at bedside; patient is status post 3 units PRBC. Follow-up cultures. 04/27/18: NO family at bedside 04/28/18: Updated sister Miranda 04/29/18: NO family at bedside 04/30/18: Mary who was at the bedside, was updated to patient status 05/01/18: Mary and patient were updated with the help of ICU resident Dr. James Nguyen D.O. Objective - Vital Signs/Intake and Output Vital Signs (last 24 hours): Temp Pulse Resp BP Pulse Ox 100 F H 97 H 18 126/77 95 05/01/18 16:00 05/01/18 16:00 05/01/18 16:00 05/01/18 16:00 05/01/18 04:00 Intake and Output: 05/01/18 05/01/18 06:59 18:59 Intake Total 1700 260 Output Total 2570 2000 Balance -870 -1740 - Medications Medications: Current Medications Albuterol/Ipratropium (Duoneb 3 Mg/0.5 Mg (3 Ml) Ud) 3 ml INH RQ6 JESUS Last Admin: 05/01/18 13:28 Dose: Not Given Docusate Sodium (Colace) 100 mg PO TID JESUS Last Admin: 05/01/18 13:14 Dose: 100 mg Enoxaparin Sodium (Lovenox) 40 mg SC DAILY [facility] Last Admin: 05/01/18 09:24 Dose: 40 mg Folic Acid (Folic Acid) 1 mg PO DAILY [facility] Last Admin: 05/01/18 09:25 Dose: 1 mg Meropenem 1 gm/ Sodium (Chloride) 100 mls @ 100 mls/hr IVPB Q8H JESUS; Protocol Last Admin: 05/01/18 13:13 Dose: 100 mls/hr Vancomycin HCl 1,500 mg/ (Sodium Chloride) 500 mls @ 200 mls/hr IVPB Q12H JESUS; Protocol Last Admin: 05/01/18 16:21 Dose: 200 mls/hr Ibuprofen (Motrin Tab) 400 mg PO Q6H PRN PRN Reason: fever Last Admin: 04/30/18 01:39 Dose: 400 mg Lactobacillus Acidophilus (Lactobacillus) 1 cap PO BID [facility] Last Admin: 05/01/18 09:24 Dose: 1 cap Morphine Sulfate (Morphine) 2 mg IVP Q4 PRN PRN Reason: Pain, severe (8-10) Multivitamins (Hexavitamin) 1 tab PO DAILY [facility] Last Admin: 05/01/18 09:24 Dose: 1 tab Pantoprazole Sodium (Protonix Inj) 40 mg IVP DAILY [facility] Last Admin: 05/01/18 09:25 Dose: 40 mg Potassium Chloride (K-Dur 20 Meq Er Tab) 40 meq PO DAILY [facility] Last Admin: 05/01/18 09:25 Dose: 40 meq Sennosides (Senokot Tab) 8.6 mg PO BID PRN PRN Reason: Constipation Last Admin: 05/01/18 09:24 Dose: 8.6 mg Thiamine HCl (Vitamin B1 Tab) 100 mg PO DAILY [facility] Last Admin: 05/01/18 09:24 Dose: 100 mg Tramadol HCl (Ultram) 25 mg PO TID PRN PRN Reason: Pain, moderate (4-7) Last Admin: 05/01/18 09:23 Dose: 25 mg - Labs Labs: 05/01/18 06:11 05/01/18 06:11 PT 13.7 SECONDS (9.7-12.2) H 04/24/18 06:26 INR 1.3 04/24/18 06:26 APTT 42 SECONDS (21-34) H 04/24/18 06:26
[2018-05-02] MEDS: Albuterol-Ipratrop 3 mg / 0.5 (3 ml) UD INH SCH ×3 (01:15→20:07)
[2018-05-02] MEDS: Meropenem 1 GM in Sodium Chloride 0.9% 100 ML IVPB SCH ×3 (06:00→20:42)
[2018-05-02 06:48] LABS: BASO # 0.2 K/uL (0.0-0.2); EOS # 0.4 K/uL (0.0-0.7); EOS % 4.5 % (0.0-4.0); HEMOGLOBIN 10.1 g/dL (12.0-18.0); LYMPH # 1.1 K/uL (1.0-4.3); LYMPH % 11.7 % (20.0-40.0); MEAN CELL VOLUME 89.9 fL (80.0-94.0); MEAN CORPUSCULAR HGB CONC 33.4 g/dL (33.0-37.0); MEAN PLATELET VOLUME 9.7 fL (7.2-11.7); MONO # 1.3 K/uL (0.0-0.8); MONO % 14.5 % (0.0-10.0); NEUT # 6.2 K/uL (1.8-7.0); NEUT % 67.3 % (50.0-75.0); RBC 3.36 Mil/uL (4.40-5.90); RED CELL DISTRIBUTION WIDTH 14.2 % (11.5-14.5); WHITE BLOOD COUNT 9.3 K/uL (4.8-10.8)
[2018-05-02 06:59] LABS: ALB/GLOB RATIO 0.6 (1.0-2.1); ALBUMIN 2.6 g/dL (3.5-5.0); ALT/SGPT 48 U/L (21-72); AST/SGOT 50 U/L (17-59); BLOOD UREA NITROGEN 6 mg/dL (9-20); CALCIUM 7.9 mg/dl (8.6-10.4); GFR NON-AFRICAN AMERICAN > 60
--- NOTE | 2018-05-02 10:01 | RAD ---
Date of service: 05/02/2018 HISTORY: chest tubes; s/p thoractomy COMPARISON: Portable chest 05/01/2018 7:05 a.m.. FINDINGS: LUNGS: Two right-sided chest tubes are stable in position a skin ilene again seen the right chest wall. Improved aeration is appreciate the right hemithorax with mild residual right pleural effusion remaining. Likely atelectasis remains at the right base. Left chest remains clear. No left pleural effusion. No pneumothorax bilaterally. Right hemidiaphragm remains elevated. PLEURA: As above. CARDIOVASCULAR: No aortic atherosclerotic calcification present. Normal cardiac size. No pulmonary vascular congestion. OSSEOUS STRUCTURES: No significant abnormalities. VISUALIZED UPPER ABDOMEN: Normal. OTHER FINDINGS: None. IMPRESSION: Improving aeration right lung with limited residual airspace disease right base and mild residual right pleural effusion. Right chest tubes unchanged in position.
[2018-05-02] MEDS: Enoxaparin 40 mg Syringe SC SCH (10:05)
[2018-05-02] MEDS: Multiple Vitamins Tab PO SCH (10:06)
[2018-05-02] MEDS: Potassium Chloride 20 mEq ER Tab PO SCH (10:06)
[2018-05-02] MEDS: Lactobacillus Acidophilus 500 MU Cap PO SCH ×2 (10:06→17:14)
--- NOTE | 2018-05-02 14:30 | CP.PCM.PN ---
Subjective - Date & Time of Evaluation Date of Evaluation: 05/02/18 Time of Evaluation: 14:15 - Subjective Subjective: Hospitalist Progress Note Patient was seen and examined at 2:15 PM ICU Bed 6 05/02/18 S/P Thoracotomy Right 04/24/18 with Chest Tube x 2 placement Blood Culture 04/25/18 is negative at 5 days Blood Culture 05/01/18 RESULTS ARE PENDING Lung Tissue Culture 04/24/18 is negative to date Pleural Fluid Culture 04/24/18 is negative to date Pleural Fluid Fungal Culture 04/24/18 is negative Pleural Fluid Mycobacterium Culture 04/24/18 shows NO AFB Continues with fevers with Tmax 100.0 F around 8 PM 05/01/18. HgB/Hct continue to be stable and patient is S/P 3 Units PRBC over the weekend 04/24/18 At the time he was on therapeutic Lovenox 100 mg SC Q12H for Bilateral Cephalic Vein Thrombosises seen on Duplex 04/21/17 and this was held due to the drop in HgB/Hct. HgB/Hct remained stable after patient was given therapeutic lovenox trial of 100 mg SC on 04/28/18. I spoke with ICU Resident Dr. James Tate who had spoken with Surgeon Dr. Meza 04/30/18 who did NOT recommend therapeutic Lovenox in light of the chest tubes on the right Repeat Venous Doppler of the Bilateral UE did show abnormality on preliminary reading. Will follow up official report. If the thrombosis are still present in the Cephalic Veins, then will hold further therapeutic anticoagulation as these veins are actually supercial veins of the arms. Mary explained 04/30/18 that there have been episodes during the day where the patients appears to be confused to her. At times during a conversation he will just say "Whose on the elevator" and does not seem to know where he is. 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 Could this be secondary to long history of Alcohol Abuse? CT Head without contrast 05/01/18 showed mild age advanced global parenchymal volume loss Seen by Psychiatry 05/01/18: episodes may be secondary to Alcohol Abuse as well as delirium When ready for discharge will provide information for AA as well as outpatient counseling: the importance (considering the history of alcohol abuse) of this has been gone over both with his and nephew multiple times this past week even before Psychiatry evaluation/recommendation Currently upon FULL ROS: NO chest pain Some soreness continues at the site of Right Chest Tube insertion NO SOB/Cough NO dysphagia/odynophagia NO abdominal pain Moving his bowels normally NO burning/pain with urination NO headaches NO new changes in vision NO new changes in hearing NO other complaints upon FULL ROS General: AAOX3. NOT requiring any supplemental oxygen HEENT: NCA, Pupils are round/equal/reactive to light, NO lymphadenopathy, NO thyromegaly, NO pharyngeal erythema/exudate Cardio: NS1 and NS2, NO M/R/G Resp: Course breath sounds diffusely GI: BSx4, Soft, Central Obesity Extremities: 1+ pitting edema right leg which appears to be larger in circumference than the left, Capillary refill is 2 seconds, Pulses are strong and equal Neuro: CN II through XII are grossly intact Please see Assessment and Plans below for summary of care Assessment/Plan 1). Sepsis Secondary to Right Middle and Lower Lobe Pneumonia and Suspected Empyema * Infectious Disease (Dr. Spring) on case * Cardiothoracic Surgery Dr. Meza: Chest tube placed 04/18/18 and pleural fluid culture will have to be followed up * Post operative note April 24, 2018. Patient underwent a right thoracotomy, decortication of the right lung, drainage of the right lung infection/exu dates, right middle inferior lobe biopsy performed, right-sided chest tube placement x2. Specimen noted portion of the middle lobe of the right lobe, portion of the lower lobe on right lung, right lung fluid/hematoma. * 04/24/18 Tissue Culture: No growth after 24 hours * 04/24/18 Pleural Fluid: no growth after 24 hours * 04/24/18 Lung: No growth after 24 hours * 04/24/18 Lung: No growth after 24 hours * Leukocytosis, fever, pneumonia/empyema * CT chest from Apr 15, 2018. Cardiomegaly. Trace pericardial effusion. Coronary artery calcifications. Extensive consolidation throughout the right hemithorax with relative sparing of the right lung apex. Small loculated right-sided pleural effusion measuring approximately 2.1 cm in maximum depth superinfection is not excluded. Mild left basal bibasilar atelectasis. Left hemithorax. Otherwise grossly clear. Limited visualization of the upper abdomen reveals hepatomegaly. Diffuse hepatic steatosis with 2 more focal hypodense regions favored to represent focal fatty infiltration. * CT chest from Apr 17 was suboptimal. No evidence of central pulmonary embolus. Interval worsening of airspace consolidation at the right lung contains foci of low-attenuation possible fluid collection since prior study interval worsening of the right-sided multiple likely request for sacral pleural effusion. * CT chest from 04/20/2018 noted for decreased right pleural effusion. Right chest tube. Extensive right lower lobe atelectasis with right middle lobe and left lower lobe segmental atelectasis. Small left pleural effusion. No pneumothorax. Endotracheal tube and nasogastric tube noted. * Chest xray (04/25/18): postop changes are slowly resolving at the right hemithorax as post decorticulation previously. Tube and catheters unchanged in position with right basilar atectasis favored over infiltrate. Mild right pleural effusion is noted including the minor fissue. Limited left perihilar opacity density noted. * Azithromycin and Rocephin were discontinued on 04/15/18 * Zosyn 3.375 gm IV Q6H (04/15/18 through 04/16/18) * Tamiflu 75 mg PO 2x/day (04/14/18 through 04/19/18) * Gentamicin 80mg IV Q12H (04/21/18 through 04/25/18) * Micafungin 100mg IV Q24H (04/23/18 through 04/27/18) * Clindamycin 900 mg IV Q8H (04/16/18 through 04/27/18) * Amikacin 500mg IVPB Q12H (04/25/18 through 04/30/18) Current IV Abx: * Vancomycin 1.25 gm IV Q12H (04/15/18) dose adjusted to Vancomycin 1500gm IV Q12H (active since 04/21/18) * Meropenem 1 gm IV Q8H (04/16/18) * Blood Culture 04/13/18: is negative to date * Blood culture 04/21/18: negative. * Urine culture: 04/21/18 * Pleural fluid (04/18/18): no anaerobes isolated. Fungal culture--prelim * Pleural fluid (04/18/18): no growth. * Bronchial Washings: 04/19/18: Normal saphrophytic john paul, fungal culture-prelim * Myocbacterial Culture--Prelim:pending * Procalcitonin: 1.64 * s/p OR (04/24/18)-->bx of lung taken, removal of purulent material from right lung. Anterior and posterior chest tubes. 1 units given in OR of PRBC; 2 units post RBC 2). Acute Respiratory Failure secondary to Pneumonia/Empyema * Patient was intubated and placed on vent on evening 04/15/18 after he started to have DTs * Patient was on Vent from admission through 04/28/18 * While intubated was given Fentanyl, Versed, Propofol, Precdex 3). Alcohol Withdrawal DTs * MVI tab PO daily * Vitamin B1 tab PO daily * Folic Acid 1 tab PO daily 4). Bilateral Perinephric Stranding (resolved) As seen on CT Abdomen/Pelvis * UA shows NEGATIVE Nitrate, Ketones, and LE * Repeat urine cultures are negative * While intubated did have roman but is now using urinal 5). Alcohol Abuse * Patient revealed 04/14/18 that he drank shots and multiple beers twice a week but told overnight team at time of admission that he did this 5x per week. * Last drink was this past Friday04/10/18 as per patient * MVI tab PO daily * Vitamin B1 tab PO daily * Folic Acid 1 tab PO daily 6). Hyponatremia (resolved) * Likely SIADH * TSH and T4 are normal * Morning Cortisol normal * Triglycerides normal * Urine Osm was high * Urine Na was 35 7). Tachycardia * Postoperative 2 from cardiothoracic surgery 8). Elevated LFTs and Hepatic Parenchymal Disease (as seen CT Abdomen) Likely secondary to suspected alcohol abuse * Hepatitis Panel negative * HIV negative * UDS negative * On CT scan noted hepatomegaly * uptrending mildly 9). Hypokalemia * monitor and replete 10). Hypomagnesemia * monitor and replete 11). Constipation * As seen on Obstruction Series * Senokot * Colace 100 mg PO 3x/day * Given enema 04/21/18 * Moving his bowels daily 12) Bilateral Cephalic Vein Thrombosises * Patient was on therapeutic lovenox 100mg subq12 Hr held prior to OR 04/23/18 * As these are NOT DVTS, therapeutic lovenox was discontinued 13). Prophylaxis * DVT risk score of 2 based upon Age and diagnosis of Sepsis: Lovenox 40mg subqdaily Bilateral SCDs * As patient was intubated 04/15/18, Protonix 40 mg IV 1x/day was started * Jevity was given via OGT while he was intubated * Lactobacillus PO 2x/day * Therapuetic Lovenox 100 mg SC Q12H held 04/23/18. * TLC placed on 04/22/18 Updates: 04/16/18: Mary was at bedside and he she was updated on patient's recent developements and status with the help of ICU residen Dr. Severino Tate 04/17/18: Two Sisters, Cousin, Nephew were at bedside and he she was updated on patient's recent developements and status with the help of ICU residen Dr. Severino Tate 04/18/18: with the help of brother in law Carson (who speaks Romansh) family members included Mary, were udated as to patient status 04/19/18: Two Sisters at the bedside were updated with the help of PATRICIA Moreno who translated Par[place]ayan 04/20/18: spoke with and sister at bedside 04/21/18: no family present at bedside 04/22/18: I was present at bedside with cardiothoracic surgeon, ICU resident Janay Haneyle as well as will need a thoracic surgery explained that patient would need a decortication/VATS planned for this Friday. Given patient's empyema and not improving status. is aware that the surgery carries greater risk and that the and depending on the nature of the surgery will ultimately affect patient's ability to be extubated. She is aware that we hope for good outcomes however she does understand it does carry a high mortality. Dr. Tate at bedside translating on behalf of chronic cardiothoracic surgeon as well. 04/24/17: spoke with at bedside. Patient seen postoperative: in pain. off propofol. pending official operative note. 04/25/18: Spoke with family at bedside; patient is status post 3 units PRBC. Follow-up cultures. 04/27/18: NO family at bedside 04/28/18: Updated sister Miranda 04/29/18: NO family at bedside 04/30/18: Mary who was at the bedside, was updated to patient status 05/01/18: Mary and patient were updated with the help of ICU resident Dr. James Tate 05/02/18: Nephew (speaks maltese) and Sister at bedside and they were updated along with the patient Franki Nguyen D.O. Objective - Vital Signs/Intake and Output Vital Signs (last 24 hours): Temp Pulse Resp BP Pulse Ox 97.5 F L 100 H 22 103/64 96 05/02/18 12:00 05/02/18 12:00 05/02/18 12:00 05/02/18 12:00 05/02/18 12:00 Intake and Output: 05/02/18 05/02/18 06:59 18:59 Intake Total 1940 700 Output Total 3240 1500 Balance -1300 -800 - Medications Medications: Current Medications Albuterol/Ipratropium (Duoneb 3 Mg/0.5 Mg (3 Ml) Ud) 3 ml INH RQ6 [facility] Last Admin: 05/02/18 08:15 Dose: Not Given Docusate Sodium (Colace) 100 mg PO TID [facility] Last Admin: 05/02/18 13:37 Dose: 100 mg Enoxaparin Sodium (Lovenox) 40 mg SC DAILY [facility] Last Admin: 05/02/18 10:05 Dose: 40 mg Folic Acid (Folic Acid) 1 mg PO DAILY [facility] Last Admin: 05/02/18 10:06 Dose: 1 mg Meropenem 1 gm/ Sodium (Chloride) 100 mls @ 100 mls/hr IVPB Q8H [facility]; Protocol Last Admin: 05/02/18 12:39 Dose: 100 mls/hr Vancomycin HCl 1,500 mg/ (Sodium Chloride) 500 mls @ 200 mls/hr IVPB Q12H [facility]; Protocol Last Admin: 05/02/18 02:10 Dose: 200 mls/hr Ibuprofen (Motrin Tab) 400 mg PO Q6H PRN PRN Reason: fever Last Admin: 05/01/18 21:30 Dose: 400 mg Lactobacillus Acidophilus (Lactobacillus) 1 cap PO BID [facility] Last Admin: 05/02/18 10:06 Dose: 1 cap Morphine Sulfate (Morphine) 2 mg IVP Q4 PRN PRN Reason: Pain, severe (8-10) Multivitamins (Hexavitamin) 1 tab PO DAILY [facility] Last Admin: 05/02/18 10:06 Dose: 1 tab Pantoprazole Sodium (Protonix Inj) 40 mg IVP DAILY [facility] Last Admin: 05/02/18 10:05 Dose: 40 mg Potassium Chloride (K-Dur 20 Meq Er Tab) 40 meq PO DAILY [facility] Last Admin: 05/02/18 10:06 Dose: 40 meq Sennosides (Senokot Tab) 8.6 mg PO BID PRN PRN Reason: Constipation Last Admin: 05/01/18 09:24 Dose: 8.6 mg Thiamine HCl (Vitamin B1 Tab) 100 mg PO DAILY [facility] Last Admin: 05/02/18 10:06 Dose: 100 mg Tramadol HCl (Ultram) 25 mg PO TID PRN PRN Reason: Pain, moderate (4-7) Last Admin: 05/01/18 09:23 Dose: 25 mg - Labs Labs: 05/02/18 06:40 05/02/18 06:40 PT 13.7 SECONDS (9.7-12.2) H 04/24/18 06:26 INR 1.3 04/24/18 06:26 APTT 42 SECONDS (21-34) H 04/24/18 06:26
--- NOTE | 2018-05-02 19:51 | CP.PCM.PN ---
Subjective - Date & Time of Evaluation Date of Evaluation: 05/02/18 Time of Evaluation: 16:35 - Subjective Subjective: CT surgery Progress note for Dr. Meza Patient seen and examined at bedside. States he is feeling well. Continues to have cough. Anterior chest tube 50ml during the day and 250ml overnight. posterior chest tube 140ml during the day and 190ml overnight. Patient otherwise feeling well and denies SOB, HAY, CP, abdominal pain, stool changes and extremity pain/weakness. pt is tolerating room air well. Objective - Vital Signs/Intake and Output Vital Signs (last 24 hours): Temp Pulse Resp BP Pulse Ox 98.2 F 100 H 21 110/79 97 05/02/18 16:00 05/02/18 16:00 05/02/18 16:00 05/02/18 16:00 05/02/18 16:00 Intake and Output: 05/02/18 05/03/18 18:59 06:59 Intake Total 1700 Output Total 2430 Balance -730 - Medications Medications: Current Medications Albuterol/Ipratropium (Duoneb 3 Mg/0.5 Mg (3 Ml) Ud) 3 ml INH RQ6 [facility]ESUS Last Admin: 05/02/18 08:15 Dose: Not Given Docusate Sodium (Colace) 100 mg PO TID [facility] Last Admin: 05/02/18 17:14 Dose: 100 mg Enoxaparin Sodium (Lovenox) 40 mg SC DAILY [facility] Last Admin: 05/02/18 10:05 Dose: 40 mg Folic Acid (Folic Acid) 1 mg PO DAILY [facility] Last Admin: 05/02/18 10:06 Dose: 1 mg Meropenem 1 gm/ Sodium (Chloride) 100 mls @ 100 mls/hr IVPB Q8H [facility]; Protocol Last Admin: 05/02/18 12:39 Dose: 100 mls/hr Vancomycin HCl 1,500 mg/ (Sodium Chloride) 500 mls @ 200 mls/hr IVPB Q12H [facility]; Protocol Last Admin: 05/02/18 15:39 Dose: 200 mls/hr Ibuprofen (Motrin Tab) 400 mg PO Q6H PRN PRN Reason: fever Last Admin: 05/01/18 21:30 Dose: 400 mg Lactobacillus Acidophilus (Lactobacillus) 1 cap PO BID [facility] Last Admin: 05/02/18 17:14 Dose: 1 cap Morphine Sulfate (Morphine) 2 mg IVP Q4 PRN PRN Reason: Pain, severe (8-10) Multivitamins (Hexavitamin) 1 tab PO DAILY [facility] Last Admin: 05/02/18 10:06 Dose: 1 tab Pantoprazole Sodium (Protonix Inj) 40 mg IVP DAILY [facility] Last Admin: 05/02/18 10:05 Dose: 40 mg Potassium Chloride (K-Dur 20 Meq Er Tab) 40 meq PO DAILY [facility] Last Admin: 05/02/18 10:06 Dose: 40 meq Sennosides (Senokot Tab) 8.6 mg PO BID PRN PRN Reason: Constipation Last Admin: 05/01/18 09:24 Dose: 8.6 mg Thiamine HCl (Vitamin B1 Tab) 100 mg PO DAILY [facility] Last Admin: 05/02/18 10:06 Dose: 100 mg Tramadol HCl (Ultram) 25 mg PO TID PRN PRN Reason: Pain, moderate (4-7) Last Admin: 05/01/18 09:23 Dose: 25 mg - Labs Labs: 05/02/18 06:40 05/02/18 06:40 PT 13.7 SECONDS (9.7-12.2) H 04/24/18 06:26 INR 1.3 04/24/18 06:26 APTT 42 SECONDS (21-34) H 04/24/18 06:26 - Constitutional Appears: Well, Non-toxic, No Acute Distress - Head Exam Head Exam: ATRAUMATIC, NORMOCEPHALIC - Eye Exam Eye Exam: EOMI - ENT Exam ENT Exam: Mucous Membranes Moist - Respiratory Exam Respiratory Exam: NORMAL BREATHING PATTERN Additional comments: right sided posterior and anterolateral chest tubes in place, no air leak observed - Cardiovascular Exam Cardiovascular Exam: REGULAR RHYTHM - GI/Abdominal Exam GI & Abdominal Exam: Soft. absent: Guarding, Tenderness - Extremities Exam Extremities Exam: Normal Inspection. absent: Calf Tenderness - Neurological Exam Neurological Exam: Alert, Awake, Oriented x3 - Psychiatric Exam Psychiatric exam: Normal Affect, Normal Mood - Skin Skin Exam: Dry, Intact, Normal Color, Warm Assessment and Plan - Assessment and Plan (Free Text) Assessment: 43M s/p thoracotomy, decortication, and lung biopsy POD#8 Plan: - monitor CT output - f/u daily CXR - marlene recs per Dr Susana Olson, PGY 1
[2018-05-03] MEDS: Tramadol 25 mg PO PRN ×2 (00:48→22:10)
[2018-05-03] MEDS: Albuterol-Ipratrop 3 mg / 0.5 (3 ml) UD INH SCH ×2 (02:07→07:40)
[2018-05-03 02:10] VITALS: RESP 20
[2018-05-03] MEDS: Meropenem 1 GM in Sodium Chloride 0.9% 100 ML IVPB SCH ×3 (05:43→21:53)
[2018-05-03 07:34] LABS: BASO # 0.1 K/uL (0.0-0.2); BASO % 1.4 % (0.0-2.0); EOS # 0.3 K/uL (0.0-0.7); EOS % 4.1 % (0.0-4.0); HEMOGLOBIN 9.8 g/dL (12.0-18.0); LYMPH # 1.1 K/uL (1.0-4.3); LYMPH % 13.2 % (20.0-40.0); MEAN CELL VOLUME 89.2 fL (80.0-94.0); MEAN CORPUSCULAR HEMOGLOBIN 30.1 pg (27.0-31.0); MEAN CORPUSCULAR HGB CONC 33.8 g/dL (33.0-37.0); MEAN PLATELET VOLUME 8.9 fL (7.2-11.7); MONO # 1.3 K/uL (0.0-0.8); MONO % 15.6 % (0.0-10.0); NEUT # 5.5 K/uL (1.8-7.0); NEUT % 65.7 % (50.0-75.0); RBC 3.24 Mil/uL (4.40-5.90); WHITE BLOOD COUNT 8.3 K/uL (4.8-10.8)
--- NOTE | 2018-05-03 07:56 | CP.PCM.PN ---
Subjective - Date & Time of Evaluation Date of Evaluation: 05/03/18 Time of Evaluation: 07:53 - Subjective Subjective: SURGERY NOTE FOR DR. HERNANDEZ 43M seen and examined at bedside. Patient denies chest pain, or shortness of breath. Tolerating regular diet. Objective - Vital Signs/Intake and Output Vital Signs (last 24 hours): Temp Pulse Resp BP Pulse Ox 99.5 F 109 H 20 115/73 96 05/03/18 00:00 05/03/18 00:00 05/03/18 00:00 05/03/18 00:00 05/03/18 00:00 Intake and Output: 05/03/18 05/03/18 06:59 18:59 Intake Total 900 Output Total 1710 Balance -810 - Medications Medications: Current Medications Albuterol/Ipratropium (Duoneb 3 Mg/0.5 Mg (3 Ml) Ud) 3 ml INH RQ6 [facility] Last Admin: 05/03/18 02:07 Dose: Not Given Docusate Sodium (Colace) 100 mg PO TID [facility] Last Admin: 05/02/18 17:14 Dose: 100 mg Enoxaparin Sodium (Lovenox) 40 mg SC DAILY [facility] Last Admin: 05/02/18 10:05 Dose: 40 mg Folic Acid (Folic Acid) 1 mg PO DAILY [facility] Last Admin: 05/02/18 10:06 Dose: 1 mg Meropenem 1 gm/ Sodium (Chloride) 100 mls @ 100 mls/hr IVPB Q8H [facility]; Protocol Last Admin: 05/03/18 05:43 Dose: 100 mls/hr Vancomycin HCl 1,500 mg/ (Sodium Chloride) 500 mls @ 200 mls/hr IVPB Q12H [facility]; Protocol Last Admin: 05/03/18 02:50 Dose: 200 mls/hr Ibuprofen (Motrin Tab) 400 mg PO Q6H PRN PRN Reason: fever Last Admin: 05/01/18 21:30 Dose: 400 mg Lactobacillus Acidophilus (Lactobacillus) 1 cap PO BID [facility] Last Admin: 05/02/18 17:14 Dose: 1 cap Morphine Sulfate (Morphine) 2 mg IVP Q4 PRN PRN Reason: Pain, severe (8-10) Multivitamins (Hexavitamin) 1 tab PO DAILY [facility] Last Admin: 05/02/18 10:06 Dose: 1 tab Pantoprazole Sodium (Protonix Inj) 40 mg IVP DAILY [facility] Last Admin: 05/02/18 10:05 Dose: 40 mg Potassium Chloride (K-Dur 20 Meq Er Tab) 40 meq PO DAILY [facility] Last Admin: 05/02/18 10:06 Dose: 40 meq Sennosides (Senokot Tab) 8.6 mg PO BID PRN PRN Reason: Constipation Last Admin: 05/01/18 09:24 Dose: 8.6 mg Thiamine HCl (Vitamin B1 Tab) 100 mg PO DAILY [facility] Last Admin: 05/02/18 10:06 Dose: 100 mg Tramadol HCl (Ultram) 25 mg PO TID PRN PRN Reason: Pain, moderate (4-7) Last Admin: 05/03/18 00:48 Dose: 25 mg - Labs Labs: 05/03/18 07:19 05/02/18 06:40 PT 13.7 SECONDS (9.7-12.2) H 04/24/18 06:26 INR 1.3 04/24/18 06:26 APTT 42 SECONDS (21-34) H 04/24/18 06:26 - Constitutional Appears: Non-toxic, No Acute Distress - Respiratory Exam Respiratory Exam: NORMAL BREATHING PATTERN Additional comments: right chest tubes in place anterior - 70cc/12hrs serosang no air leak posterior- 340cc/24hrs serosang no air leak - Cardiovascular Exam Cardiovascular Exam: REGULAR RHYTHM, +S1, +S2 - GI/Abdominal Exam GI & Abdominal Exam: Soft. absent: Distended, Firm, Guarding, Rigid, Tenderness, Rebound - Neurological Exam Neurological Exam: Alert, Awake Assessment and Plan - Assessment and Plan (Free Text) Assessment: 43M s/p right thoracotomy with decortication and lung biopsy Plan: - Continue diet - continue to monitor chest tube output - Daily CXR Further recs per Dr. Susana Hernandez, PGY3
[2018-05-03 07:57] LABS: ALB/GLOB RATIO 0.6 (1.0-2.1); ALBUMIN 2.4 g/dL (3.5-5.0); ALT/SGPT 45 U/L (21-72); AST/SGOT 42 U/L (17-59); BLOOD UREA NITROGEN 6 mg/dL (9-20); GFR NON-AFRICAN AMERICAN > 60
--- NOTE | 2018-05-03 08:32 | RAD ---
Date of service: 05/03/2018 HISTORY: chest tubes; s/p thoractomy COMPARISON: Portable chest 05/02/2018 7:06 a.m.. FINDINGS: LUNGS: Two right-sided chest tubes unchanged in position with limited residual pleural fluid remaining laterally. Limited probable atelectasis noted at the medial right base once again with the levator right hemidiaphragm again evident as well. Left chest remains clear. PLEURA: No significant pleural effusion identified, no pneumothorax apparent. CARDIOVASCULAR: No aortic atherosclerotic calcification present. Prominent cardiac silhouette remains. No pulmonary vascular congestion. OSSEOUS STRUCTURES: No significant abnormalities. VISUALIZED UPPER ABDOMEN: Normal. OTHER FINDINGS: None. IMPRESSION: Stable limited residual pleural effusion in medial basilar atelectasis or infiltrate right hemithorax. Chest tubes unchanged in position right chest. Cardiomegaly stable. No pulmonary vascular congestion.
[2018-05-03] MEDS: Lactobacillus Acidophilus 500 MU Cap PO SCH ×2 (09:33→18:24)
[2018-05-03] MEDS: Enoxaparin 40 mg Syringe SC SCH (09:33)
[2018-05-03] MEDS: Multiple Vitamins Tab PO SCH (09:33)
[2018-05-03] MEDS: Potassium Chloride 20 mEq ER Tab PO SCH (09:33)
[2018-05-03] MEDS: Vancomycin 1 gm/NS 200 ml 1 GM/200 ML BAG IVPB SCH (14:50)
--- NOTE | 2018-05-03 17:13 | CP.PCM.PN ---
Subjective - Date & Time of Evaluation Date of Evaluation: 05/03/18 Time of Evaluation: 15:45 - Subjective Subjective: Hospitalist Progress Note Patient was seen and examined at 3:45 PM 352B 05/03/18 S/P Thoracotomy Right 04/24/18 with Chest Tube x 2 placement Chest X Ray 05/03/18 shows improvement in the right pleural effusion when compared to the priors this past week, cardiomegaly, NO pulmonary vascular congestion, chest tubes unchanged in position Anterior Chest Tube Output 7 AM to 3 PM: 70 ml Posterior Chest Tube Output 7 AM to 3 PM: 160 ml Blood Culture 04/25/18 is negative at 5 days Blood Culture 05/01/18 is negative to date Lung Tissue Culture 04/24/18 is negative to date Pleural Fluid Culture 04/24/18 is negative to date Pleural Fluid Fungal Culture 04/24/18 is negative Pleural Fluid Mycobacterium Culture 04/24/18 shows NO AFB NO fevers since 8 PM 05/11/18 HgB/Hct continue to be stable and patient is S/P 3 Units PRBC over the weekend 04/24/18 At the time he was on therapeutic Lovenox 100 mg SC Q12H for Bilateral Cephalic Vein Thrombosises seen on Duplex 04/21/17 and this was held due to the drop in HgB/Hct. HgB/Hct remained stable after patient was given therapeutic lovenox trial of 100 mg SC on 04/28/18. I spoke with ICU Resident Dr. James Tate who had spoken with Surgeon Dr. Meza 04/30/18 who did NOT recommend therapeutic Lovenox in light of the chest tubes on the right Repeat Venous Doppler of the Bilateral UE did show abnormality on preliminary reading. Will need to follow up official report. If the thrombosis are still present in the Cephalic Veins, then will hold further therapeutic anticoagulation as these veins are actually superficial veins of the arms. Considering the edema on the Right Lower Leg, its circumference larger than the Left Leg, recent Sepsis and Thoracotomy, clinically this appears to be a DVT although preliminary reading on Venous Doppler does not indicate DVT. Therfore MRI of the Right Thigh and Pelvis has been ordered to make sure and this will need to be followed up on 05/04/18 Mary explained 04/30/18 that there have been episodes during the day where the patients appears to be confused to her. At times during a conversation he will just say "Whose on the elevator" and does not seem to know where he is. 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 Could this be secondary to long history of Alcohol Abuse? CT Head without contrast 05/01/18 showed mild age advanced global parenchymal volume loss Seen by Psychiatry 05/01/18: episodes may be secondary to Alcohol Abuse as well as delirium When ready for discharge will provide information for AA as well as outpatient counseling: the importance (considering the history of alcohol abuse) of this has been gone over both with his and nephew multiple times this past week even before Psychiatry evaluation/recommendation Currently upon FULL ROS: NO chest pain Some soreness continues at the site of Right Chest Tube insertion NO SOB/Cough NO dysphagia/odynophagia NO abdominal pain Moving his bowels normally NO burning/pain with urination NO headaches NO new changes in vision NO new changes in hearing NO other complaints upon FULL ROS General: AAOX3. NOT requiring any supplemental oxygen HEENT: NCA, Pupils are round/equal/reactive to light, NO lymphadenopathy, NO thyromegaly, NO pharyngeal erythema/exudate Cardio: NS1 and NS2, NO M/R/G Resp: Course breath sounds diffusely GI: BSx4, Soft, Central Obesity Extremities: 1+ pitting edema right leg which appears to be larger in circumference than the left, Capillary refill is 2 seconds, Pulses are strong and equal Neuro: CN II through XII are grossly intact Please see Assessment and Plans below for summary of care Assessment/Plan 1). Sepsis Secondary to Right Middle and Lower Lobe Pneumonia and Suspected Empyema * Infectious Disease (Dr. Spring) on case * Cardiothoracic Surgery Dr. Meza: Chest tube placed 04/18/18 and pleural fluid culture will have to be followed up * Post operative note April 24, 2018. Patient underwent a right thoracotomy, decortication of the right lung, drainage of the right lung infection/exudates, right middle inferior lobe biopsy performed, right-sided chest tube placement x2. Specimen noted portion of the middle lobe of the right lobe, portion of the lower lobe on right lung, right lung fluid/hematoma. * 04/24/18 Tissue Culture: No growth after 24 hours * 04/24/18 Pleural Fluid: no growth after 24 hours * 04/24/18 Lung: No growth after 24 hours * 04/24/18 Lung: No growth after 24 hours * Leukocytosis, fever, pneumonia/empyema * CT chest from Apr 15, 2018. Cardiomegaly. Trace pericardial effusion. Coronary artery calcifications. Extensive consolidation throughout the right hemithorax with relative sparing of the right lung apex. Small loculated right-sided pleural effusion measuring approximately 2.1 cm in maximum depth superinfection is not excluded. Mild left basal bibasilar atelectasis. Left hemithorax. Otherwise grossly clear. Limited visualization of the upper abdomen reveals hepatomegaly. Diffuse hepatic steatosis with 2 more focal hypodense regions favored to represent focal fatty infiltration. * CT chest from Apr 17 was suboptimal. No evidence of central pulmonary embolus. Interval worsening of airspace consolidation at the right lung contains foci of low-attenuation possible fluid collection since prior study interval worsening of the right-sided multiple likely request for sacral pleural effusion. * CT chest from 04/20/2018 noted for decreased right pleural effusion. Right chest tube. Extensive right lower lobe atelectasis with right middle lobe and left lower lobe segmental atelectasis. Small left pleural effusion. No pneumothorax. Endotracheal tube and nasogastric tube noted. * Chest xray (04/25/18): postop changes are slowly resolving at the right hemithorax as post decorticulation previously. Tube and catheters unchanged in position with right basilar atectasis favored over infiltrate. Mild right pleural effusion is noted including the minor fissue. Limited left perihilar opacity density noted. * Azithromycin and Rocephin were discontinued on 04/15/18 * Zosyn 3.375 gm IV Q6H (04/15/18 through 04/16/18) * Tamiflu 75 mg PO 2x/day (04/14/18 through 04/19/18) * Gentamicin 80mg IV Q12H (04/21/18 through 04/25/18) * Micafungin 100mg IV Q24H (04/23/18 through 04/27/18) * Clindamycin 900 mg IV Q8H (04/16/18 through 04/27/18) * Amikacin 500mg IVPB Q12H (04/25/18 through 04/30/18) Current IV Abx: * Vancomycin 1.25 gm IV Q12H (04/15/18) dose adjusted to Vancomycin 1500gm IV Q12H (active since 04/21/18) * Meropenem 1 gm IV Q8H (04/16/18) * Blood Culture 04/13/18: is negative to date * Blood culture 04/21/18: negative. * Urine culture: 04/21/18 * Pleural fluid (04/18/18): no anaerobes isolated. Fungal culture--prelim * Pleural fluid (04/18/18): no growth. * Bronchial Washings: 04/19/18: Normal saphrophytic john paul, fungal culture-prelim * Myocbacterial Culture--Prelim:pending * Procalcitonin: 1.64 * s/p OR (04/24/18)-->bx of lung taken, removal of purulent material from right lung. Anterior and posterior chest tubes. 1 units given in OR of PRBC; 2 units post RBC 2). Acute Respiratory Failure secondary to Pneumonia/Empyema * Patient was intubated and placed on vent on evening 04/15/18 after he started to have DTs * Patient was on Vent from admission through 04/28/18 * While intubated was given Fentanyl, Versed, Propofol, Precdex 3). Alcohol Withdrawal DTs * MVI tab PO daily * Vitamin B1 tab PO daily * Folic Acid 1 tab PO daily 4). Bilateral Perinephric Stranding (resolved) As seen on CT Abdomen/Pelvis * UA shows NEGATIVE Nitrate, Ketones, and LE * Repeat urine cultures are negative * While intubated did have roman but is now using urinal 5). Alcohol Abuse * Patient revealed 04/14/18 that he drank shots and multiple beers twice a week but told overnight team at time of admission that he did this 5x per week. * Last drink was this past Friday04/10/18 as per patient * MVI tab PO daily * Vitamin B1 tab PO daily * Folic Acid 1 tab PO daily 6). Hyponatremia (resolved) * Likely SIADH * TSH and T4 are normal * Morning Cortisol normal * Triglycerides normal * Urine Osm was high * Urine Na was 35 7). Tachycardia * Postoperative 2 from cardiothoracic surgery 8). Elevated LFTs and Hepatic Parenchymal Disease (as seen CT Abdomen) Likely secondary to suspected alcohol abuse * Hepatitis Panel negative * HIV negative * UDS negative * On CT scan noted hepatomegaly 9). Hypokalemia * monitor and replete 10). Hypomagnesemia * monitor and replete 11). Constipation * As seen on Obstruction Series * Senokot * Colace 100 mg PO 3x/day * Given enema 04/21/18 * Moving his bowels daily 12) Bilateral Cephalic Vein Thrombosises * Patient was on therapeutic lovenox 100mg subq12 Hr held prior to OR 04/23/18 * As these are NOT DVTS, therapeutic lovenox was discontinued 13). Prophylaxis * DVT risk score of 2 based upon Age and diagnosis of Sepsis: Lovenox 40mg subqdaily Bilateral SCDs * As patient was intubated 04/15/18, Protonix 40 mg IV 1x/day was started * Jevity was given via OGT while he was intubated * Lactobacillus PO 2x/day * Therapuetic Lovenox 100 mg SC Q12H held 04/23/18. * TLC placed on 04/22/18 Updates: 04/16/18: Mary was at bedside and he she was updated on patient's recent developements and status with the help of ICU residen Dr. Severino Tate 04/17/18: Two Sisters, Cousin, Nephew were at bedside and he she was updated on patient's recent developements and status with the help of ICU residen Dr. Severino Tate 04/18/18: with the help of brother in law Carson (who speaks Bur[place]ian) family members included Mary, were udated as to patient status 04/19/18: Two Sisters at the bedside were updated with the help of PATRIICA Moreno who translated Puerto [place]ican 04/20/18: spoke with and sister at bedside 04/21/18: no family present at bedside 04/22/18: I was present at bedside with cardiothoracic surgeon, ICU resident Janay Martin as well as will need a thoracic surgery explained that patient would need a decortication/VATS planned for this Friday. Given patient's empyema and not improving status. is aware that the surgery carries greater risk and that the and depending on the nature of the surgery will ultimately affect patient's ability to be extubated. She is aware that we hope for good outcomes however she does understand it does carry a high mortality. Dr. Tate at bedside translating on behalf of chronic cardiothoracic surgeon as well. 04/24/17: spoke with at bedside. Patient seen postoperative: in pain. off propofol. pending official operative note. 04/25/18: Spoke with family at bedside; patient is status post 3 units PRBC. Foll ow-up cultures. 04/27/18: NO family at bedside 04/28/18: Updated sister Miranda 04/29/18: NO family at bedside 04/30/18: Mary who was at the bedside, was updated to patient status 05/01/18: Mary and patient were updated with the help of ICU resident Dr. James Tate 05/02/18: Nephew (speaks georgian) and Sister at bedside and they were updated along with the patient 05/03/18: Spoke with Mary and patient in limited Puerto [place]ican and explained the results of most recent Chest X Ray 05/03/18 and the reason for the MRI Thigh/Pelvis Franki Nguyen D.O. Objective - Vital Signs/Intake and Output Vital Signs (last 24 hours): Temp Pulse Resp BP Pulse Ox 98.3 F 88 20 116/70 97 05/03/18 16:27 05/03/18 16:27 05/03/18 16:27 05/03/18 16:27 05/03/18 16:27 Intake and Output: 05/03/18 05/03/18 06:59 18:59 Intake Total 900 800 Output Total 1710 1330 Balance -810 -530 - Medications Medications: Current Medications Docusate Sodium (Colace) 100 mg PO TID [facility] Last Admin: 05/03/18 13:22 Dose: 100 mg Enoxaparin Sodium (Lovenox) 40 mg SC DAILY [facility] Last Admin: 05/03/18 09:33 Dose: 40 mg Folic Acid (Folic Acid) 1 mg PO DAILY [facility] Last Admin: 05/03/18 09:33 Dose: 1 mg Meropenem 1 gm/ Sodium (Chloride) 100 mls @ 100 mls/hr IVPB Q8H [facility]; Protocol Last Admin: 05/03/18 13:22 Dose: 100 mls/hr Vancomycin/Sodium Chloride (Vancomycin 1 Gm/Ns 200 Ml) 1 gm in 200 mls @ 133 mls/hr IVPB Q12H [facility]; Protocol Stop: 05/08/18 14:31 Last Admin: 05/03/18 14:50 Dose: 133 mls/hr Ibuprofen (Motrin Tab) 400 mg PO Q6H PRN PRN Reason: fever Last Admin: 05/01/18 21:30 Dose: 400 mg Lactobacillus Acidophilus (Lactobacillus) 1 cap PO BID [facility] Last Admin: 05/03/18 09:33 Dose: 1 cap Morphine Sulfate (Morphine) 0.5 mg IVP Q6H PRN PRN Reason: Pain, severe (8-10) Multivitamins (Hexavitamin) 1 tab PO DAILY [facility] Last Admin: 05/03/18 09:33 Dose: 1 tab Pantoprazole Sodium (Protonix Inj) 40 mg IVP DAILY [facility] Last Admin: 05/03/18 09:32 Dose: 40 mg Potassium Chloride (K-Dur 20 Meq Er Tab) 40 meq PO DAILY [facility] Last Admin: 05/03/18 09:33 Dose: 40 meq Sennosides (Senokot Tab) 8.6 mg PO BID PRN PRN Reason: Constipation Last Admin: 05/01/18 09:24 Dose: 8.6 mg Thiamine HCl (Vitamin B1 Tab) 100 mg PO DAILY [facility] Last Admin: 05/03/18 09:33 Dose: 100 mg Tramadol HCl (Ultram) 25 mg PO TID PRN PRN Reason: Pain, moderate (4-7) Last Admin: 05/03/18 00:48 Dose: 25 mg - Labs Labs: 05/03/18 07:19 05/03/18 07:19 PT 13.7 SECONDS (9.7-12.2) H 04/24/18 06:26 INR 1.3 04/24/18 06:26 APTT 42 SECONDS (21-34) H 04/24/18 06:26
--- NOTE | 2018-05-03 20:51 | VASCLAB ---
Date of service: 04/30/2018 PROCEDURE: Upper Extremity Venous Duplex Exam HISTORY: Hx Bilateral Cephalic Vein DVTs PRIORS: Ultrasound from 04/21/2018 TECHNIQUE: Bilateral upper extremity, internal jugular, subclavian, axillary, brachial, ulnar, radial, basilic and upper cephalic veins were evaluated. Flow was assessed with color Doppler, compressibility, assessment of phasic flow and augmentation response. Report prepared by Bg Amado, AUDREY, RVT FINDINGS: RIGHT: 1. Internal Jugular: 1.1. Compressibility - Fully compressible: Thrombus - None : Flow - Phasic: Augmentation -Normal: Reflux - None. 2. Subclavian: 2.1. Compressibility - Fully compressible: Thrombus - None : Flow - Phasic: Augmentation -Normal: Reflux - None. 3. Axillary: 3.1. Compressibility - Fully compressible: Thrombus - None : Flow - Phasic: Augmentation -Normal: Reflux - None. 4. Brachial: 4.1. Compressibility - Fully compressible: Thrombus - None: Flow - Phasic: Augmentation -Normal: Reflux - None. 5. Ulnar: 5.1. Compressibility - Fully compressible: Thrombus - None: Flow - Phasic: Augmentation -Normal: Reflux - None. 6. Radial: 6.1. Compressibility - Fully compressible: Thrombus - None: Flow - Phasic: Augmentation - Normal: Reflux - None. 7. Cephalic: 7.1. Compressibility - Partial: Thrombus - Acute: Flow - Absent : Augmentation - None: Reflux - None. 8. Basilic: 8.1. Compressibility - Fully compressible: Thrombus - None: Flow - Phasic: Augmentation -Normal: Reflux - None. LEFT: 1. Internal Jugular: 1.1. Compressibility - Fully compressible: Thrombus - None : Flow - Phasic: Augmentation -Normal: Reflux - None. 2. Subclavian: 2.1. Compressibility - Fully compressible: Thrombus - None : Flow - Phasic: Augmentation -Normal: Reflux - None. 3. Axillary: 3.1. Compressibility - Fully compressible: Thrombus - None : Flow - Phasic: Augmentation -Normal: Reflux - None. 4. Brachial: 4.1. Compressibility - Fully compressible: Thrombus - None: Flow - Phasic: Augmentation -Normal: Reflux - None. 5. Ulnar: 5.1. Compressibility - Fully compressible: Thrombus - None: Flow - Phasic: Augmentation -Normal: Reflux - None. 6. Radial: 6.1. Compressibility - Fully compressible: Thrombus - None: Flow - Phasic: Augmentation - Normal: Reflux - None. 7. Cephalic: 7.1. Compressibility - Partial: Thrombus - Acute: Flow - Absent : Augmentation - None: Reflux - None. 8. Basilic: 8.1. Compressibility - Fully compressible: Thrombus - None: Flow - Phasic: Augmentation -Normal: Reflux - None. OTHER FINDINGS: DAVIS Dennison notified about the findings. IMPRESSION: Redemonstration of partial vein thrombosis of both upper arm cephalic veins with severe reduction of the venous return. Evolution of the thrombus noted. No other thrombus noted within the visualized veins.
--- NOTE | 2018-05-03 20:55 | VASCLAB ---
Date of service: 04/30/2018 PROCEDURE: Lower Extremity Venous Duplex Exam. HISTORY: Right Leg Larger Circumference than Left PRIORS: None. TECHNIQUE: Bilateral common femoral, femoral, popliteal and posterior tibial, peroneal and great saphenous veins were evaluated. Flow was assessed with color Doppler, compressibility, assessment of phasic flow and augmentation response. Report prepared by Bg Amado, AUDREY, RVT FINDINGS: RIGHT: 1. Common Femoral Vein: 1.1. Compressibility - Fully compressible: Thrombus - None : Flow - Phasic: Augmentation -Normal: Reflux - None. 2. Femoral Vein: 2.1. Compressibility - Fully compressible: Thrombus - None : Flow - Phasic: Augmentation -Normal: Reflux - None. 3. Popliteal Vein: 3.1. Compressibility - Fully compressible: Thrombus - None : Flow - Phasic: Augmentation -Normal: Reflux - None. 4. Posterior Tibial Vein: 4.1. Compressibility - Fully compressible: Thrombus - None: Flow - Phasic: Augmentation -Normal: Reflux - None. 5. Peroneal Vein: 5.1. Compressibility - Fully compressible: Thrombus - None: Flow - Phasic: Augmentation -Normal: Reflux - None. 6. Great Saphenous Vein: 6.1. Compressibility - Fully compressible: Thrombus - None: Flow - Phasic: Augmentation - Normal: Reflux - Yes. LEFT: 1. Common Femoral Vein: 1.1. Compressibility - Fully compressible: Thrombus - None: Flow - Phasic: Augmentation -Normal: Reflux - None. 2. Femoral Vein: 2.1. Compressibility - Fully compressible: Thrombus - None: Flow - Phasic: Augmentation -Normal: Reflux - None. 3. Popliteal Vein: 3.1. Compressibility - Fully compressible: Thrombus - None : Flow - Phasic: Augmentation -Normal: Reflux - None. 4. Posterior Tibial Vein: 4.1. Compressibility - Fully compressible: Thrombus - None: Flow - Phasic: Augmentation -Normal: Reflux - None. 5. Peroneal Vein: 5.1. Compressibility - Fully compressible: Thrombus - None: Flow - Phasic: Augmentation -Normal: Reflux - None. 6. Great Saphenous Vein: 6.1. Compressibility - Fully compressible: Thrombus - None: Flow - Phasic: Augmentation - Normal: Reflux - None. OTHER FINDINGS: Right: None significant. Left: None significant. IMPRESSION: Right: No evidence of deep or superficial vein thrombosis of the right lower extremity. Valvular incompetence of the right greater saphenous vein. Left: No evidence of deep or superficial vein thrombosis of the left lower extremity. Normal valve function noted of the left side.
[2018-05-04] MEDS: Vancomycin 1 gm/NS 200 ml 1 GM/200 ML BAG IVPB SCH ×2 (01:47→14:13)
[2018-05-04] MEDS: Meropenem 1 GM in Sodium Chloride 0.9% 100 ML IVPB SCH ×3 (05:26→21:55)
[2018-05-04 07:27] LABS: BASO # 0.1 K/uL (0.0-0.2); BASO % 1.3 % (0.0-2.0); EOS # 0.3 K/uL (0.0-0.7); EOS % 3.5 % (0.0-4.0); HEMOGLOBIN 10.2 g/dL (12.0-18.0); LYMPH # 1.2 K/uL (1.0-4.3); LYMPH % 13.7 % (20.0-40.0); MEAN CELL VOLUME 89.8 fL (80.0-94.0); MEAN CORPUSCULAR HEMOGLOBIN 30.8 pg (27.0-31.0); MEAN CORPUSCULAR HGB CONC 34.3 g/dL (33.0-37.0); MEAN PLATELET VOLUME 9.2 fL (7.2-11.7); MONO # 1.2 K/uL (0.0-0.8); MONO % 14.2 % (0.0-10.0); NEUT # 5.8 K/uL (1.8-7.0); NEUT % 67.3 % (50.0-75.0); NRBC % 0.2 % (0.0-2.0); RBC 3.32 Mil/uL (4.40-5.90); WHITE BLOOD COUNT 8.7 K/uL (4.8-10.8)
[2018-05-04 07:47] LABS: ALB/GLOB RATIO 0.6 (1.0-2.1); ALBUMIN 2.6 g/dL (3.5-5.0); ALT/SGPT 38 U/L (21-72); AST/SGOT 42 U/L (17-59); BLOOD UREA NITROGEN 6 mg/dL (9-20); CALCIUM 8.2 mg/dl (8.6-10.4); GFR NON-AFRICAN AMERICAN > 60
--- NOTE | 2018-05-04 08:30 | CP.PCM.PN ---
<CourtneyEdi - Last Filed: 05/04/18 16:47> Subjective - Date & Time of Evaluation Date of Evaluation: 05/04/18 Time of Evaluation: 08:30 - Subjective Subjective: HOSPITALIST SERVICE Pt seen and examined at bedside, reports a normal BM yesterday, also reports positional soreness at both chest tubes. Denies chest pains, SOB, FC, NV, denies any pain with inspiration. Per nursing pt chest tube drainage is decreasing. Objective - Vital Signs/Intake and Output Vital Signs (last 24 hours): Temp Pulse Resp BP Pulse Ox 98.9 F 102 H 20 114/64 95 05/04/18 08:13 05/04/18 08:13 05/04/18 08:13 05/04/18 08:13 05/04/18 08:13 Intake and Output: 05/04/18 05/04/18 06:59 18:59 Intake Total 1150 Output Total 970 1200 Balance 180 -1200 - Medications Medications: Current Medications Albuterol/Ipratropium (Duoneb 3 Mg/0.5 Mg (3 Ml) Ud) 3 ml INH RQ6 [facility] Docusate Sodium (Colace) 100 mg PO TID [facility] Last Admin: 05/03/18 18:24 Dose: 100 mg Enoxaparin Sodium (Lovenox) 40 mg SC DAILY [facility] Last Admin: 05/03/18 09:33 Dose: 40 mg Folic Acid (Folic Acid) 1 mg PO DAILY [facility] Last Admin: 05/03/18 09:33 Dose: 1 mg Meropenem 1 gm/ Sodium (Chloride) 100 mls @ 100 mls/hr IVPB Q8H [facility]; Protocol Last Admin: 05/04/18 05:26 Dose: 100 mls/hr Vancomycin/Sodium Chloride (Vancomycin 1 Gm/Ns 200 Ml) 1 gm in 200 mls @ 133 mls/hr IVPB Q12H [facility]; Protocol Stop: 05/08/18 14:31 Last Admin: 05/04/18 01:47 Dose: 133 mls/hr Ibuprofen (Motrin Tab) 400 mg PO Q6H PRN PRN Reason: fever Last Admin: 05/01/18 21:30 Dose: 400 mg Lactobacillus Acidophilus (Lactobacillus) 1 cap PO BID [facility] Last Admin: 05/03/18 18:24 Dose: 1 cap Morphine Sulfate (Morphine) 0.5 mg IVP Q6H PRN PRN Reason: Pain, severe (8-10) Multivitamins (Hexavitamin) 1 tab PO DAILY [facility] Last Admin: 05/03/18 09:33 Dose: 1 tab Pantoprazole Sodium (Protonix Inj) 40 mg IVP DAILY [facility] Last Admin: 05/03/18 09:32 Dose: 40 mg Potassium Chloride (K-Dur 20 Meq Er Tab) 40 meq PO DAILY [facility] Last Admin: 05/03/18 09:33 Dose: 40 meq Sennosides (Senokot Tab) 8.6 mg PO BID PRN PRN Reason: Constipation Last Admin: 05/01/18 09:24 Dose: 8.6 mg Thiamine HCl (Vitamin B1 Tab) 100 mg PO DAILY [facility] Last Admin: 05/03/18 09:33 Dose: 100 mg Tramadol HCl (Ultram) 25 mg PO TID PRN PRN Reason: Pain, moderate (4-7) Last Admin: 05/03/18 22:10 Dose: 25 mg - Labs Labs: 05/04/18 07:04 05/04/18 07:04 PT 13.7 SECONDS (9.7-12.2) H 04/24/18 06:26 INR 1.3 04/24/18 06:26 APTT 42 SECONDS (21-34) H 04/24/18 06:26 - Additional Findings Additional findings: Head: Positive for: Atraumatic, Normocephalic Pupils: Positive for: PERRL Extroacular Muscles: Positive for: EOMI Neck: Positive for: Normal Range of Motion Respiratory/Chest: Positive for: Decreased Breath Sounds (right middle and lower lobes ). Negative for: Respiratory Distress, Accessory Muscle Use R Chest Tube:10cc overnight L Chest Tube:10cc overnight Cardiovascular: Positive for: Regular Rate and Rhythm, Normal S1, S2 Abdomen: Positive for: Distention, Normal Bowel Sounds. Negative for: Tenderness Upper Extremity: Positive for: Normal Inspection. Negative for: Cyanosis, Edema Lower Extremity: Positive for: Normal Inspection. Negative for: Edema Neurological: Positive for: CN II-XII Intact, Speech Normal Skin: Positive for: Warm, Dry, Normal Color Psychiatric: Positive for: Alert, Oriented x 3, Normal Insight, Normal Concentration Assessment and Plan - Assessment and Plan (Free Text) Assessment: 43M admitted for Sepsis 2/ to pna/ possible empyema Assessment/Plan Sepsis Secondary to Right Middle and Lower Lobe Pneumonia and Suspected Empyema * Infectious Disease (Dr. Spring) on case * Cardiothoracic Surgery Dr. Meza: Chest tube placed 04/18/18 (R) anterior chest tube 10cc x24hrs serosanguinous fluid (R) posterior chest tube 10cc x24hrs serosanguinous fluid daily CXRs maintain suction * Post operative note April 24, 2018. Patient underwent a right thoracotomy, decortication of the right lung, drainage of the right lung infection/exudates, right middle inferior lobe biopsy performed, right-sided chest tube placement x2. Specimen noted portion of the middle lobe of the right lobe, portion of the lower lobe on right lung, right lung fluid/hematoma. * 04/24/18 Tissue Culture: No growth after 24 hours * 04/24/18 Pleural Fluid: no growth after 24 hours * 04/24/18 Lung: No growth after 24 hours * 04/24/18 Lung: No growth after 24 hours * Leukocytosis, fever, pneumonia/empyema * CT chest from Apr 15, 2018. Cardiomegaly. Trace pericardial effusion. Coronary artery calcifications. Extensive consolidation throughout the right hemithorax with relative sparing of the right lung apex. Small loculated righ t-sided pleural effusion measuring approximately 2.1 cm in maximum depth superinfection is not excluded. Mild left basal bibasilar atelectasis. Left hemithorax. Otherwise grossly clear. Limited visualization of the upper abdomen reveals hepatomegaly. Diffuse hepatic steatosis with 2 more focal hypodense regions favored to represent focal fatty infiltration. * CT chest from Apr 17 was suboptimal. No evidence of central pulmonary embolus. Interval worsening of airspace consolidation at the right lung contains foci of low-attenuation possible fluid collection since prior study interval worsening of the right-sided multiple likely request for sacral pleural effusion. * CT chest from 04/20/2018 noted for decreased right pleural effusion. Right chest tube. Extensive right lower lobe atelectasis with right middle lobe and left lower lobe segmental atelectasis. Small left pleural effusion. No pneumothorax. Endotracheal tube and nasogastric tube noted. * Chest xray (04/25/18): postop changes are slowly resolving at the right hemithorax as post decorticulation previously. Tube and catheters unchanged in position with right basilar atectasis favored over infiltrate. Mild right pleural effusion is noted including the minor fissue. Limited left perihilar opacity density noted. * CT chest 05/04/18: suture material along right lateral chest wall. small right hydropneumothorax. right sided cehst tube. scattered right mid to lower lobe infiltrate or atelectasis. 2.6x7.7x5.6cm right chest wall collection - consider hematoma or abscess. right 6th and 7th rib fractures. subtle hypodensidty in anterior right hepatic lobe, indeterminate. * Azithromycin and Rocephin were discontinued on 04/15/18 * Zosyn 3.375 gm IV Q6H (04/15/18 through 04/16/18) * Tamiflu 75 mg PO 2x/day (04/14/18 through 04/19/18) * Gentamicin 80mg IV Q12H (04/21/18 through 04/25/18) * Micafungin 100mg IV Q24H (04/23/18 through 04/27/18) * Clindamycin 900 mg IV Q8H (04/16/18 through 04/27/18) * Amikacin 500mg IVPB Q12H (04/25/18 through 04/30/18) Current IV Abx: * Vancomycin 1 gm IV Q12H (04/15/18) * Meropenem 1 gm IV Q8H (04/16/18) * Blood Culture 04/13/18: is negative to date * Blood culture 04/21/18: negative. * Urine culture 04/21/18: negative. * Pleural fluid (04/18/18): no anaerobes isolated. Fungal culture--prelim * Pleural fluid (04/18/18): no growth. * Bronchial Washings: 04/19/18: Normal saphrophytic john paul, fungal culture-prelim * Myocbacterial Culture and IGs Neg * Procalcitonin: 1.64 * s/p OR (04/24/18)-->bx of lung taken, removal of purulent material from right lung. Anterior and posterior chest tubes. 1 units given in OR of PRBC; 2 units post RBC Acute Respiratory Failure secondary to Pneumonia/Empyema * Patient was intubated and placed on vent on evening 04/15/18 after he started to have DTs * Patient was on Vent from admission through 04/28/18 * While intubated was given Fentanyl, Versed, Propofol, Precdex Alcohol Withdrawal DTs * MVI tab PO daily * Vitamin B1 tab PO daily * Folic Acid 1 tab PO daily Bilateral Perinephric Stranding (resolved) As seen on CT Abdomen/Pelvis * UA shows NEGATIVE Nitrate, Ketones, and LE * Repeat urine cultures are negative * While intubated did have roman but is now using urinal Alcohol Abuse * Patient revealed 04/14/18 that he drank shots and multiple beers twice a week but told overnight team at time of admission that he did this 5x per week. * Last drink was this past Friday04/10/18 as per patient * MVI tab PO daily * Vitamin B1 tab PO daily * Folic Acid 1 tab PO daily Electrolyte abnormalities (resolved) Tachycardia * Postoperative 2 from cardiothoracic surgery Elevated LFTs and Hepatic Parenchymal Disease (as seen CT Abdomen) Likely secondary to suspected alcohol abuse Improved * Hepatitis Panel negative * HIV negative * UDS negative * On CT scan noted hepatomegaly Constipation resolved Bilateral Cephalic Vein Thrombosises * Patient was on therapeutic lovenox 100mg subq12 Hr held prior to OR 04/23/18 * As these are NOT DVTS, therapeutic lovenox was discontinued Prophylaxis * DVT risk score of 2 based upon Age and diagnosis of Sepsis: Lovenox 40mg subqdaily Bilateral SCDs * As patient was intubated 04/15/18, Protonix 40 mg IV 1x/day was started * Jevity was given via OGT while he was intubated * Lactobacillus PO 2x/day * Therapuetic Lovenox 100 mg SC Q12H held 04/23/18. * TLC placed on 04/22/18 Dispo: Pt making remarkable recovery. possible d/c soon pending chest tube removals and effusion resolution Patient seen and case reviewed with Dr. Mg <Daylin Mg V - Last Filed: 05/04/18 21:26> Objective - Vital Signs/Intake and Output Vital Signs (last 24 hours): Temp Pulse Resp BP Pulse Ox 99.3 F 97 H 20 114/71 96 05/04/18 15:57 05/04/18 15:57 05/04/18 15:57 05/04/18 15:57 05/04/18 15:57 Intake and Output: 05/04/18 05/05/18 18:59 06:59 Intake Total 800 Output Total 2940 Balance -2140 - Medications Medications: Current Medications Albuterol/Ipratropium (Duoneb 3 Mg/0.5 Mg (3 Ml) Ud) 3 ml INH RQ6 [facility] Last Admin: 05/04/18 20:14 Dose: 3 ml Docusate Sodium (Colace) 100 mg PO TID [facility] Last Admin: 05/04/18 17:28 Dose: 100 mg Enoxaparin Sodium (Lovenox) 40 mg SC DAILY [facility] Last Admin: 05/04/18 09:54 Dose: 40 mg Folic Acid (Folic Acid) 1 mg PO DAILY [facility] Last Admin: 05/04/18 09:54 Dose: 1 mg Meropenem 1 gm/ Sodium (Chloride) 100 mls @ 100 mls/hr IVPB Q8H [facility]; Protocol Last Admin: 05/04/18 12:27 Dose: 100 mls/hr Vancomycin/Sodium Chloride (Vancomycin 1 Gm/Ns 200 Ml) 1 gm in 200 mls @ 133 mls/hr IVPB Q12H [facility]; Protocol Stop: 05/08/18 14:31 Last Admin: 05/04/18 14:13 Dose: 133 mls/hr Ibuprofen (Motrin Tab) 400 mg PO Q6H PRN PRN Reason: fever Last Admin: 05/01/18 21:30 Dose: 400 mg Lactobacillus Acidophilus (Lactobacillus) 1 cap PO BID [facility] Last Admin: 05/04/18 17:28 Dose: 1 cap Morphine Sulfate (Morphine) 0.5 mg IVP Q6H PRN PRN Reason: Pain, severe (8-10) Multivitamins (Hexavitamin) 1 tab PO DAILY [facility] Last Admin: 05/04/18 09:54 Dose: 1 tab Pantoprazole Sodium (Protonix Inj) 40 mg IVP DAILY [facility] Last Admin: 05/04/18 09:54 Dose: 40 mg Sennosides (Senokot Tab) 8.6 mg PO BID PRN PRN Reason: Constipation Last Admin: 05/01/18 09:24 Dose: 8.6 mg Thiamine HCl (Vitamin B1 Tab) 100 mg PO DAILY [facility] Last Admin: 05/04/18 09:54 Dose: 100 mg Tramadol HCl (Ultram) 25 mg PO TID PRN PRN Reason: Pain, moderate (4-7) Last Admin: 05/03/18 22:10 Dose: 25 mg - Labs Labs: 05/04/18 07:04 05/04/18 07:04 PT 13.7 SECONDS (9.7-12.2) H 04/24/18 06:26 INR 1.3 04/24/18 06:26 APTT 42 SECONDS (21-34) H 04/24/18 06:26 Assessment and Plan (1) Acute respiratory failure Status: Acute (2) Aspiration pneumonia Status: Acute (3) Delirium tremens Status: Acute (4) Constipation Status: Acute (5) Empyema Status: Acute (6) Alcohol abuse Status: Acute (7) Deep vein thrombosis of upper extremity Status: Acute Attending/Attestation - Attestation I have personally seen and examined this patient.: Yes I have fully participated in the care of the patient.: Yes I have reviewed all pertinent clinical information, including history, physical exam and plan: Yes Notes (Text): Patient seen, examined, and case discussed with spanish medical interpreter. Patient seen on 3rd floor accompanied by his . Patient recognizes me from when I originally saw him in the intensive care unit. Patient is speaking well in Polish, recognizes at bedside, Able to say todays date May 04 2018, incorrect day of the week Fri, with the correct President. Patient noted soreness over the chest tubes. He reports he had bowel movement today. Resident has discussed with radiology, Dr Boothe, recommends against MRI in regards to potential DVT; recommends a specialized CT study if DVT in consideration. patient is not tachycardic, remains afebrile, no edema noted over lower extremity. Will d/c MRI at this time. CT surgery postop management in regards to chest tubes; they have ordered for CT Chest 05/04/18. Noted impression: suture material along the right lateral chest wall. small right hydropneumothorac. Right sided chest tube. Scattered right mid to lower lobe infiltrate or atecltasis. 2.3X7.7X5.6cm right chest wall collection. right 6th and 7th rib fractures. Continue to monitor chest tubes outputs. Patient is on IV abx: vancomycin and meropenem. PT/OT reconsulted since stabilized out from the ICU. Assessment/Plan 1). Sepsis Secondary to Right Middle and Lower Lobe Pneumonia and Suspected Empyema * Infectious Disease (Dr. Spring) on case * Cardiothoracic Surgery Dr. Meza: Chest tube placed 04/18/18 and pleural fluid culture will have to be followed up * Post operative note April 24, 2018. Patient underwent a right thoracotomy, decortication of the right lung, drainage of the right lung infection/exudates, right middle inferior lobe biopsy performed, right-sided chest tube placement x2. Specimen noted portion of the middle lobe of the right lobe, portion of the lower lobe on right lung, right lung fluid/hematoma. * Lung Tissue Culture 04/24/18 is negative to date * Pleural Fluid Culture 04/24/18 is negative to date * Pleural Fluid Fungal Culture 04/24/18 is negative * Pleural Fluid Mycobacterium Culture 04/24/18 shows NO AFB * Criteria: Leukocytosis, fever, pneumonia/empyema * CT chest from Apr 15, 2018. Cardiomegaly. Trace pericardial effusion. Coronary artery calcifications. Extensive consolidation throughout the right hemithorax with relative sparing of the right lung apex. Small loculated right-sided pleural effusion measuring approximately 2.1 cm in maximum depth superinfection is not excluded. Mild left basal bibasilar atelectasis. Left hemithorax. Otherwise grossly clear. Limited visualization of the upper abdomen reveals hepatomegaly. Diffuse hepatic steatosis with 2 more focal hypodense regions favored to represent focal fatty infiltration. * CT chest from Apr 17 was suboptimal. No evidence of central pulmonary embolus. Interval worsening of airspace consolidation at the right lung contains foci of low-attenuation possible fluid collection since prior study interval worsening of the right-sided multiple likely request for sacral pleural effusion. * CT chest from 04/20/2018 noted for decreased right pleural effusion. Right chest tube. Extensive right lower lobe atelectasis with right middle lobe and left lower lobe segmental atelectasis. Small left pleural effusion. No pneumothorax. Endotracheal tube and nasogastric tube noted. * Chest xray (04/25/18): postop changes are slowly resolving at the right hemithorax as post decorticulation previously. Tube and catheters unchanged in position with right basilar atectasis favored over infiltrate. Mild right pleural effusion is noted including the minor fissue. Limited left perihilar opacity density noted. * CT Chest 05/04/18: suture material along the right lateral chest wall. small right hydropneumothorac. Right sided chest tube. Scattered right mid to lower lobe infiltrate or atecltasis. 2.3X7.7X5.6cm right chest wall collection. right 6th and 7th rib fractures. * Azithromycin and Rocephin were discontinued on 04/15/18 * Zosyn 3.375 gm IV Q6H (04/15/18 through 04/16/18) * Tamiflu 75 mg PO 2x/day (04/14/18 through 04/19/18) * Gentamicin 80mg IV Q12H (04/21/18 through 04/25/18) * Micafungin 100mg IV Q24H (04/23/18 through 04/27/18) * Clindamycin 900 mg IV Q8H (04/16/18 through 04/27/18) * Amikacin 500mg IVPB Q12H (04/25/18 through 04/30/18) Current IV Abx: * Vancomycin 1.25 gm IV Q12H (04/15/18) dose adjusted to Vancomycin 1500gm IV Q12H (active since 04/21/18); changed to vancomycin 1 gram IV Q12H (evening of 05/03/18) * Check vanco trough tomorrow AM * Meropenem 1 gm IV Q8H (04/16/18) 2). Acute Respiratory Failure secondary to Pneumonia/Empyema Assessment/Plan * Patient was intubated and placed on vent on evening 04/15/18 after he started to have DTs * Patient was on Vent from admission through 04/28/18 * Patient is extubated and stabilized from the ICU to the general medical floor. 3). Alcohol Withdrawal DTs Assessment/Plan * MVI tab PO daily * Vitamin B1 tab PO daily * Folic Acid 1 tab PO daily * Social work: alcohol anonymous 4). Bilateral Perinephric Stranding (resolved) As seen on CT Abdomen/Pelvis * UA shows NEGATIVE Nitrate, Ketones, and LE * Repeat urine cultures are negative * While intubated did have roman but is now using urinal 5). Alcohol Abuse * Patient revealed 04/14/18 that he drank shots and multiple beers twice a week but told overnight team at time of admission that he did this 5x per week. * Last drink was this past Friday04/10/18 as per patient * MVI tab PO daily * Vitamin B1 tab PO daily * Folic Acid 1 tab PO daily 6). Hyponatremia (resolved) * Likely SIADH * TSH and T4 are normal * Morning Cortisol normal * Triglycerides normal * Urine Osm was high * Urine Na was 35 7). Tachycardia * continue to monitor * possible secondary to pain recent cardiothoracic surgery * Surgeon recommends against therapuetic lovenox in regards to prior cephalic vein thrombosis 8). Elevated LFTs and Hepatic Parenchymal Disease (as seen CT Abdomen) Likely secondary to suspected alcohol abuse * Hepatitis Panel negative * HIV negative * UDS negative * On CT scan noted hepatomegaly * Normalized 9). Hypokalemia * monitor and replete 10). Hypomagnesemia * monitor and replete 11). Constipation (resolved) * had BM 05/04/18 12) Bilateral Cephalic Vein Thrombosises * Patient was on therapeutic lovenox 100mg subq12 Hr held prior to OR 04/23/18 * As these are NOT DVTS, therapeutic lovenox was discontinued * Motrin 400mg PO6H changed from PRN for fever to scheduled for treatment of superficial vein thrombosis. 13). Prophylaxis * DVT risk score of 2 based upon Age and diagnosis of Sepsis: Lovenox 40mg subqdaily Bilateral SCDs * Extubated * Jevity was given via OGT while he was intubated * Lactobacillus PO 2x/day * Lovenox 40mg subdaily * TLC placed on 04/22/18 * Reconsult PT/OT Updated: 05/04/18: resident has spoken with radiology advised against for MRI for ruling out DVT; recommends for specialized CT scan by IR if necessary. I have d/c MRIs. There is no tachycardia, no appreciable edema. CT surgery has ordered for CT chest today; f/u. PT/OT reordered since patient is transferred out from ICU. Vancomycin trough ordered for 12PM tomorrow.
[2018-05-04] MEDS: Albuterol-Ipratrop 3 mg / 0.5 (3 ml) UD INH SCH ×3 (08:32→20:14)
[2018-05-04] MEDS: Lactobacillus Acidophilus 500 MU Cap PO SCH ×2 (09:54→17:28)
[2018-05-04] MEDS: Multiple Vitamins Tab PO SCH (09:54)
[2018-05-04] MEDS: Enoxaparin 40 mg Syringe SC SCH (09:54)
--- NOTE | 2018-05-04 11:47 | CP.PCM.PN ---
Subjective - Date & Time of Evaluation Date of Evaluation: 05/04/18 Time of Evaluation: 07:00 - Subjective Subjective: Thoracic Surgery Dr. Meza Pt S&E @bedside. No acute events overnight. pain well controlled. Pt denies CP, SOB, F/C, N/V. has not been OOB. tolerating diet. (R) anterior chest tube 120cc x24hrs serosanguinous (R) posterior chest tube 270cc x24hrs serosanguinous Objective - Vital Signs/Intake and Output Vital Signs (last 24 hours): Temp Pulse Resp BP Pulse Ox 98.9 F 102 H 20 114/64 95 05/04/18 08:13 05/04/18 08:13 05/04/18 08:13 05/04/18 08:13 05/04/18 08:13 Intake and Output: 05/04/18 05/04/18 06:59 18:59 Intake Total 1150 Output Total 970 1200 Balance 180 -1200 - Medications Medications: Current Medications Albuterol/Ipratropium (Duoneb 3 Mg/0.5 Mg (3 Ml) Ud) 3 ml INH RQ6 [facility] Last Admin: 05/04/18 08:32 Dose: 3 ml Docusate Sodium (Colace) 100 mg PO TID [facility] Last Admin: 05/04/18 09:54 Dose: 100 mg Enoxaparin Sodium (Lovenox) 40 mg SC DAILY [facility] Last Admin: 05/04/18 09:54 Dose: 40 mg Folic Acid (Folic Acid) 1 mg PO DAILY [facility] Last Admin: 05/04/18 09:54 Dose: 1 mg Meropenem 1 gm/ Sodium (Chloride) 100 mls @ 100 mls/hr IVPB Q8H [facility]; Protocol Last Admin: 05/04/18 05:26 Dose: 100 mls/hr Vancomycin/Sodium Chloride (Vancomycin 1 Gm/Ns 200 Ml) 1 gm in 200 mls @ 133 mls/hr IVPB Q12H [facility]; Protocol Stop: 05/08/18 14:31 Last Admin: 05/04/18 01:47 Dose: 133 mls/hr Ibuprofen (Motrin Tab) 400 mg PO Q6H PRN PRN Reason: fever Last Admin: 05/01/18 21:30 Dose: 400 mg Lactobacillus Acidophilus (Lactobacillus) 1 cap PO BID [facility] Last Admin: 05/04/18 09:54 Dose: 1 cap Morphine Sulfate (Morphine) 0.5 mg IVP Q6H PRN PRN Reason: Pain, severe (8-10) Multivitamins (Hexavitamin) 1 tab PO DAILY [facility] Last Admin: 05/04/18 09:54 Dose: 1 tab Pantoprazole Sodium (Protonix Inj) 40 mg IVP DAILY [facility] Last Admin: 05/04/18 09:54 Dose: 40 mg Sennosides (Senokot Tab) 8.6 mg PO BID PRN PRN Reason: Constipation Last Admin: 05/01/18 09:24 Dose: 8.6 mg Thiamine HCl (Vitamin B1 Tab) 100 mg PO DAILY [facility] Last Admin: 05/04/18 09:54 Dose: 100 mg Tramadol HCl (Ultram) 25 mg PO TID PRN PRN Reason: Pain, moderate (4-7) Last Admin: 05/03/18 22:10 Dose: 25 mg - Labs Labs: 05/04/18 07:04 05/04/18 07:04 PT 13.7 SECONDS (9.7-12.2) H 04/24/18 06:26 INR 1.3 04/24/18 06:26 APTT 42 SECONDS (21-34) H 04/24/18 06:26 - Constitutional Appears: Non-toxic, No Acute Distress - Head Exam Head Exam: NORMAL INSPECTION - Eye Exam Eye Exam: Normal appearance - ENT Exam ENT Exam: Mucous Membranes Moist - Respiratory Exam Respiratory Exam: NORMAL BREATHING PATTERN. absent: Accessory Muscle Use, Respiratory Distress Additional comments: right chest tubes in place. on suction, no leak - Cardiovascular Exam Cardiovascular Exam: REGULAR RHYTHM. absent: Bradycardia, Tachycardia - GI/Abdominal Exam GI & Abdominal Exam: Soft. absent: Distended, Tenderness - Extremities Exam Extremities Exam: Normal Inspection - Neurological Exam Neurological Exam: Alert, Awake, Oriented x3 - Psychiatric Exam Psychiatric exam: Normal Affect, Normal Mood - Skin Skin Exam: Dry, Intact, Normal Color, Warm Assessment and Plan - Assessment and Plan (Free Text) Assessment: 43M s/p right thoracotomy with decortication and lung biopsy Plan: - CTC w/ contrast today - Cont diet as tolerated - monitor chest tube output - maintain CT to wall suction - Daily CXR - encourage OOB to chair/Amb/IS use Further recs per Dr. Susana Pollock DO PGY3
[2018-05-04] MEDS ORDERED: Iodixanol 320 mg/ml 150 ml Bottle IV ONE (12:47)
--- NOTE | 2018-05-04 13:49 | RAD ---
Date of service: 05/04/2018 HISTORY: chest tubes; s/p thoractomy COMPARISON: 05/03/2018 FINDINGS: LUNGS: Possible right basilar infiltrate. Superimposed is opacity of pleural effusion rendering evaluation PLEURA: Of infiltrate somewhat limited. Small to moderate right pleural effusion. Two right apical chest tubes unchanged from prior examination. No pneumothorax. No left pleural effusion. CARDIOVASCULAR: No aortic atherosclerotic calcification present. Normal cardiac size. No pulmonary vascular congestion. OSSEOUS STRUCTURES: No significant abnormalities. VISUALIZED UPPER ABDOMEN: Normal. OTHER FINDINGS: None. IMPRESSION: Small to moderate right pleural effusion, unchanged. No pneumothorax. Two right apical chest tubes. No definite infiltrate.
--- NOTE | 2018-05-04 15:02 | CT ---
Date of service: 05/04/2018 CTA chest PE protocol Indication: empyema Technique: Contiguous axial images were obtained through the chest with intravenous contrast enhancement. Sagittal and coronal reconstructions were generated and reviewed. This CT exam was performed using 1 or more of the following dose reduction techniques: Automated exposure control, adjustment of the MAA and/or kV according to patient size, and/or use of iterative reconstruction technique. IV contrast: 100 mL Visipaque 320 Radiation dose (DLP): 563.19 MGy-cm. Comparison: Chest x-ray performed 219, CT chest without IV contrast performed 04/20/18 Findings: Visualized portions of the inferior thyroid gland appear unremarkable. The mediastinal and hilar vascular structures appear within normal limits. The heart appears within normal limits of size. Subcentimeter mediastinal lymphadenopathy, nonspecific. Right sided chest tube. Small right hydropneumothorax. Scattered right mid to lower lobe infiltrate or atelectasis. Suture material noted along the right lateral chest wall. 2.6 x 7.7 x 5.6 cm right chest wall collection (4, image 78); considerations include hematoma, abscess, etc. Limited visualized portions of the upper abdomen; indeterminate subtle hypodensity within the anterior right hepatic lobe. Right 6th and 7th rib fractures. Impression: Suture material along the right lateral chest wall. Small right hydropneumothorax. Right-sided chest tube. Scattered right mid to lower lobe infiltrate or atelectasis. 2.6 x 7.7 x 5.6 cm right chest wall collection; considerations include hematoma, abscess, etc. Right 6th and 7th rib fractures. Subtle hypodensity within the anterior right hepatic lobe, indeterminate.
[2018-05-05] MEDS: Albuterol-Ipratrop 3 mg / 0.5 (3 ml) UD INH SCH ×4 (01:37→19:56)
[2018-05-05] MEDS: Vancomycin 1 gm/NS 200 ml 1 GM/200 ML BAG IVPB SCH ×2 (02:52→14:56)
[2018-05-05] MEDS: Meropenem 1 GM in Sodium Chloride 0.9% 100 ML IVPB SCH ×3 (06:00→21:00)
[2018-05-05 07:41] LABS: ALB/GLOB RATIO 0.6 (1.0-2.1); ALBUMIN 2.7 g/dL (3.5-5.0); ALT/SGPT 37 U/L (21-72); AST/SGOT 39 U/L (17-59); BLOOD UREA NITROGEN 8 mg/dL (9-20); CALCIUM 8.5 mg/dl (8.6-10.4); GFR NON-AFRICAN AMERICAN > 60
[2018-05-05 07:45] LABS: BASO # 0.1 K/uL (0.0-0.2); BASO % 1.2 % (0.0-2.0); EOS # 0.3 K/uL (0.0-0.7); EOS % 4.2 % (0.0-4.0); HEMOGLOBIN 10.8 g/dL (12.0-18.0); LYMPH # 1.2 K/uL (1.0-4.3); LYMPH % 16.2 % (20.0-40.0); MEAN CELL VOLUME 89.6 fL (80.0-94.0); MEAN CORPUSCULAR HGB CONC 33.5 g/dL (33.0-37.0); MEAN PLATELET VOLUME 8.7 fL (7.2-11.7); MONO # 1.2 K/uL (0.0-0.8); MONO % 16.3 % (0.0-10.0); NEUT # 4.5 K/uL (1.8-7.0); NEUT % 62.1 % (50.0-75.0); NRBC % 0.1 % (0.0-2.0); RBC 3.61 Mil/uL (4.40-5.90); RED CELL DISTRIBUTION WIDTH 13.8 % (11.5-14.5); WHITE BLOOD COUNT 7.2 K/uL (4.8-10.8)
--- NOTE | 2018-05-05 08:18 | CP.PCM.PN ---
Subjective - Date & Time of Evaluation Date of Evaluation: 05/05/18 Time of Evaluation: 08:15 - Subjective Subjective: SURGERY NOTE FOR DR. HERNANDEZ 43M seen and examined at bedside. Patient resting comfortably. Denies pain, denies shortness of breath. Objective - Vital Signs/Intake and Output Vital Signs (last 24 hours): Temp Pulse Resp BP Pulse Ox 98.5 F 99 H 20 109/56 L 96 05/05/18 00:00 05/05/18 00:00 05/05/18 00:00 05/05/18 00:00 05/05/18 00:00 Intake and Output: 05/05/18 05/05/18 06:59 18:59 Intake Total 500 Output Total 1210 Balance -710 - Medications Medications: Current Medications Albuterol/Ipratropium (Duoneb 3 Mg/0.5 Mg (3 Ml) Ud) 3 ml INH RQ6 [facility] Last Admin: 05/05/18 01:37 Dose: Not Given Docusate Sodium (Colace) 100 mg PO TID [facility] Last Admin: 05/04/18 17:28 Dose: 100 mg Enoxaparin Sodium (Lovenox) 40 mg SC DAILY [facility] Last Admin: 05/04/18 09:54 Dose: 40 mg Folic Acid (Folic Acid) 1 mg PO DAILY [facility] Last Admin: 05/04/18 09:54 Dose: 1 mg Meropenem 1 gm/ Sodium (Chloride) 100 mls @ 100 mls/hr IVPB Q8H [facility]; Protocol Last Admin: 05/05/18 06:00 Dose: 100 mls/hr Vancomycin/Sodium Chloride (Vancomycin 1 Gm/Ns 200 Ml) 1 gm in 200 mls @ 133 mls/hr IVPB Q12H [facility]; Protocol Stop: 05/08/18 14:31 Last Admin: 05/05/18 02:52 Dose: 133 mls/hr Ibuprofen (Motrin Tab) 400 mg PO Q6H [facility] Stop: 05/06/18 21:31 Last Admin: 05/05/18 02:48 Dose: 400 mg Lactobacillus Acidophilus (Lactobacillus) 1 cap PO BID [facility] Last Admin: 05/04/18 17:28 Dose: 1 cap Morphine Sulfate (Morphine) 0.5 mg IVP Q6H PRN PRN Reason: Pain, severe (8-10) Multivitamins (Hexavitamin) 1 tab PO DAILY [facility] Last Admin: 05/04/18 09:54 Dose: 1 tab Pantoprazole Sodium (Protonix Inj) 40 mg IVP DAILY [facility] Last Admin: 05/04/18 09:54 Dose: 40 mg Sennosides (Senokot Tab) 8.6 mg PO BID PRN PRN Reason: Constipation Last Admin: 05/01/18 09:24 Dose: 8.6 mg Thiamine HCl (Vitamin B1 Tab) 100 mg PO DAILY [facility] Last Admin: 05/04/18 09:54 Dose: 100 mg Tramadol HCl (Ultram) 25 mg PO TID PRN PRN Reason: Pain, moderate (4-7) Last Admin: 05/03/18 22:10 Dose: 25 mg - Labs Labs: 05/05/18 07:15 05/05/18 07:15 PT 13.7 SECONDS (9.7-12.2) H 04/24/18 06:26 INR 1.3 04/24/18 06:26 APTT 42 SECONDS (21-34) H 04/24/18 06:26 - Constitutional Appears: Non-toxic, No Acute Distress - Respiratory Exam Respiratory Exam: Clear to Ausculation Bilateral, NORMAL BREATHING PATTERN Additional comments: right chest tubes in place - anterior - 80cc/24hr posterior - 210cc/24hrs - Cardiovascular Exam Cardiovascular Exam: REGULAR RHYTHM, +S1, +S2 - GI/Abdominal Exam GI & Abdominal Exam: Soft. absent: Distended, Firm, Guarding, Rigid, Tenderness, Rebound - Extremities Exam Extremities Exam: absent: Pedal Edema, Tenderness - Neurological Exam Neurological Exam: Alert, Awake - Skin Skin Exam: Dry, Intact, Normal Color, Warm Assessment and Plan - Assessment and Plan (Free Text) Assessment: 43M Plan: - chest tube outputs - continue wall suction Further recs per Dr. Susana Hernandez, PGY3
--- NOTE | 2018-05-05 09:15 | CP.PCM.PN ---
<Edi Valdez - Last Filed: 05/05/18 16:41> Subjective - Date & Time of Evaluation Date of Evaluation: 05/05/18 Time of Evaluation: 09:14 - Subjective Subjective: HOSPITALIST SERVICE Pt s/e at bedside, no acute events overnight and states that pain has improved, reports normal bm yesterday, denies SOB CP or pain with inspiration, denies leak from tubes. Denies fc nv Objective - Vital Signs/Intake and Output Vital Signs (last 24 hours): Temp Pulse Resp BP Pulse Ox 98.2 F 90 20 115/72 95 05/05/18 07:00 05/05/18 07:00 05/05/18 07:00 05/05/18 07:00 05/05/18 07:00 Intake and Output: 05/05/18 05/05/18 06:59 18:59 Intake Total 500 270 Output Total 1210 1270 Balance -710 -1000 - Medications Medications: Current Medications Albuterol/Ipratropium (Duoneb 3 Mg/0.5 Mg (3 Ml) Ud) 3 ml INH RQ6 [facility] Last Admin: 05/05/18 07:05 Dose: 3 ml Docusate Sodium (Colace) 100 mg PO TID [facility] Last Admin: 05/04/18 17:28 Dose: 100 mg Enoxaparin Sodium (Lovenox) 40 mg SC DAILY [facility] Last Admin: 05/04/18 09:54 Dose: 40 mg Folic Acid (Folic Acid) 1 mg PO DAILY [facility] Last Admin: 05/04/18 09:54 Dose: 1 mg Meropenem 1 gm/ Sodium (Chloride) 100 mls @ 100 mls/hr IVPB Q8H [facility]; Protocol Last Admin: 05/05/18 06:00 Dose: 100 mls/hr Vancomycin/Sodium Chloride (Vancomycin 1 Gm/Ns 200 Ml) 1 gm in 200 mls @ 133 mls/hr IVPB Q12H [facility]; Protocol Stop: 05/08/18 14:31 Last Admin: 05/05/18 02:52 Dose: 133 mls/hr Ibuprofen (Motrin Tab) 400 mg PO Q6H [facility] Stop: 05/06/18 21:31 Last Admin: 05/05/18 09:01 Dose: 400 mg Lactobacillus Acidophilus (Lactobacillus) 1 cap PO BID [facility] Last Admin: 05/04/18 17:28 Dose: 1 cap Morphine Sulfate (Morphine) 0.5 mg IVP Q6H PRN PRN Reason: Pain, severe (8-10) Multivitamins (Hexavitamin) 1 tab PO DAILY [facility] Last Admin: 05/04/18 09:54 Dose: 1 tab Pantoprazole Sodium (Protonix Inj) 40 mg IVP DAILY [facility] Last Admin: 05/04/18 09:54 Dose: 40 mg Sennosides (Senokot Tab) 8.6 mg PO BID PRN PRN Reason: Constipation Last Admin: 05/01/18 09:24 Dose: 8.6 mg Thiamine HCl (Vitamin B1 Tab) 100 mg PO DAILY [facility] Last Admin: 05/04/18 09:54 Dose: 100 mg Tramadol HCl (Ultram) 25 mg PO TID PRN PRN Reason: Pain, moderate (4-7) Last Admin: 05/03/18 22:10 Dose: 25 mg - Labs Labs: 05/05/18 07:15 05/05/18 07:15 PT 13.7 SECONDS (9.7-12.2) H 04/24/18 06:26 INR 1.3 04/24/18 06:26 APTT 42 SECONDS (21-34) H 04/24/18 06:26 - Additional Findings Additional findings: Head: Positive for: Atraumatic, Normocephalic Pupils: Positive for: PERRL Extroacular Muscles: Positive for: EOMI Neck: Positive for: Normal Range of Motion Respiratory/Chest: Positive for: Decreased Breath Sounds (right middle and lower lobes ), rales. Negative for: Respiratory Distress, Accessory Muscle Use R Chest Tube:160cc overnight L Chest Tube:160cc overnight Cardiovascular: Positive for: Regular Rate and Rhythm, Normal S1, S2 Abdomen: Positive for: Distention, Normal Bowel Sounds. Negative for: Tenderness Upper Extremity: Positive for: Normal Inspection. Negative for: Cyanosis, Edema Lower Extremity: Positive for: Normal Inspection. Negative for: Edema Neurological: Positive for: CN II-XII Intact, Speech Normal Skin: Positive for: Warm, Dry, Normal Color Psychiatric: Positive for: Alert, Oriented x 3, Normal Insight, Normal Concentration Assessment and Plan - Assessment and Plan (Free Text) Assessment: 43M admitted for Sepsis 2/2 to pna/ possible empyema Assessment/Plan Sepsis Secondary to Right Middle and Lower Lobe Pneumonia and Suspected Empyema * afebrile >36hrs, WBCs wnl * encourage out of bed to chair and incentive spirometer use * Infectious Disease (Dr. Spring) on case * Cardiothoracic Surgery Dr. Meza: Chest tube placed 04/18/18 (R) anterior chest tube 160cc x24hrs serosanguinous fluid (R) posterior chest tube 160cc x24hrs serosanguinous fluid daily CXRs maintain suction * Post operative note April 24, 2018. Patient underwent a right thoracotomy, decortication of the right lung, drainage of the right lung infection/exudates, right middle inferior lobe biopsy performed, right-sided chest tube placement x2. Specimen noted portion of the middle lobe of the right lobe, portion of the lower lobe on right lung, right lung fluid/hematoma. * 04/24/18 Tissue Culture: No growth after 24 hours * 04/24/18 Pleural Fluid: no growth after 24 hours * 04/24/18 Lung: No growth after 24 hours * 04/24/18 Lung: No growth after 24 hours * Leukocytosis, fever, pneumonia/empyema * CT chest from Apr 15, 2018. Cardiomegaly. Trace pericardial effusion. Coronary artery calcifications. Extensive consolidation throughout the right hemithorax with relative sparing of the right lung apex. Small loculated right-sided pleural effusion measuring approximately 2.1 cm in maximum depth superinfection is not excluded. Mild left basal bibasilar atelectasis. Left hemithorax. Otherwise grossly clear. Limited visualization of the upper abdomen reveals hepatomegaly. Diffuse hepatic steatosis with 2 more focal hypodense regions favored to represent focal fatty infiltration. * CT chest from Apr 17 was suboptimal. No evidence of central pulmonary embolus. Interval worsening of airspace consolidation at the right lung contains foci of low-attenuation possible fluid collection since prior study interval worsening of the right-sided multiple likely request for sacral pleural effusion. * CT chest from 04/20/2018 noted for decreased right pleural effusion. Right chest tube. Extensive right lower lobe atelectasis with right middle lobe and left lower lobe segmental atelectasis. Small left pleural effusion. No pneumothorax. Endotracheal tube and nasogastric tube noted. * Chest xray (04/25/18): postop changes are slowly resolving at the right hemithorax as post decorticulation previously. Tube and catheters unchanged in position with right basilar atectasis favored over infiltrate. Mild right pleural effusion is noted including the minor fissue. Limited left perihilar opacity density noted. * CT chest 05/04/18: suture material along right lateral chest wall. small right hydropneumothorax. right sided cehst tube. scattered right mid to lower lobe infiltrate or atelectasis. 2.6x7.7x5.6cm right chest wall collection - consider hematoma or abscess. right 6th and 7th rib fractures. subtle hypodensidty in anterior right hepatic lobe, indeterminate. * Azithromycin and Rocephin were discontinued on 04/15/18 * Zosyn 3.375 gm IV Q6H (04/15/18 through 04/16/18) * Tamiflu 75 mg PO 2x/day (04/14/18 through 04/19/18) * Gentamicin 80mg IV Q12H (04/21/18 through 04/25/18) * Micafungin 100mg IV Q24H (04/23/18 through 04/27/18) * Clindamycin 900 mg IV Q8H (04/16/18 through 04/27/18) * Amikacin 500mg IVPB Q12H (04/25/18 through 04/30/18) Current IV Abx: * Vancomycin 1 gm IV Q12H (04/15/18) last trough 12 * Meropenem 1 gm IV Q8H (04/16/18) * Blood Culture 04/13/18: is negative to date * Blood culture 04/21/18: negative. * Urine culture 04/21/18: negative. * Pleural fluid (04/18/18): no anaerobes isolated. Fungal culture--prelim * Pleural fluid (04/18/18): no growth. * Bronchial Washings: 04/19/18: Normal saphrophytic john paul, fungal culture-prelim * Myocbacterial Culture and IGs Neg * Procalcitonin: 1.64 * s/p OR (04/24/18)-->bx of lung taken, removal of purulent material from right lung. Anterior and posterior chest tubes. 1 units given in OR of PRBC; 2 units post RBC Acute Respiratory Failure secondary to Pneumonia/Empyema * Patient was intubated and placed on vent on evening 04/15/18 after he started to have DTs * Patient was on Vent from admission through 04/28/18 * While intubated was given Fentanyl, Versed, Propofol, Precdex Alcohol Withdrawal DTs * MVI tab PO daily * Vitamin B1 tab PO daily * Folic Acid 1 tab PO daily Bilateral Perinephric Stranding (resolved) As seen on CT Abdomen/Pelvis * UA shows NEGATIVE Nitrate, Ketones, and LE * Repeat urine cultures are negative * While intubated did have roman but is now using urinal Alcohol Abuse * Patient revealed 04/14/18 that he drank shots and multiple beers twice a week but told overnight team at time of admission that he did this 5x per week. * Last drink was this past Friday04/10/18 as per patient * MVI tab PO daily * Vitamin B1 tab PO daily * Folic Acid 1 tab PO daily Electrolyte abnormalities (resolved) Tachycardia * Postoperative 2 from cardiothoracic surgery Elevated LFTs and Hepatic Parenchymal Disease (as seen CT Abdomen) Likely secondary to suspected alcohol abuse Improved * Hepatitis Panel negative * HIV negative * UDS negative * On CT scan noted hepatomegaly Constipation resolved Bilateral Cephalic Vein Thrombosises * Patient was on therapeutic lovenox 100mg subq12 Hr held prior to OR 04/23/18 * As these are NOT DVTS, therapeutic lovenox was discontinued Prophylaxis * DVT risk score of 2 based upon Age and diagnosis of Sepsis: Lovenox 40mg subqdaily Bilateral SCDs * As patient was intubated 04/15/18, Protonix 40 mg IV 1x/day was started * Jevity was given via OGT while he was intubated * Lactobacillus PO 2x/day * Therapuetic Lovenox 100 mg SC Q12H held 04/23/18. * TLC placed on 04/22/18 Dispo: Pt making remarkable recovery. possible d/c soon pending chest tube removals and effusion resolution Patient seen and case reviewed with Dr. Mg <[place] Mg V - Last Filed: 05/06/18 09:35> Objective - Vital Signs/Intake and Output Vital Signs (last 24 hours): Temp Pulse Resp BP Pulse Ox 98.3 F 102 H 20 107/66 96 05/06/18 08:03 05/06/18 08:03 05/06/18 08:03 05/06/18 08:03 05/06/18 08:03 Intake and Output: 05/06/18 05/06/18 06:59 18:59 Intake Total 450 540 Output Total 100 610 Balance 350 -70 - Medications Medications: Current Medications Albuterol/Ipratropium (Duoneb 3 Mg/0.5 Mg (3 Ml) Ud) 3 ml INH RQ6 [facility] Last Admin: 05/06/18 07:30 Dose: 3 ml Docusate Sodium (Colace) 100 mg PO TID [facility] Last Admin: 05/06/18 09:21 Dose: 100 mg Enoxaparin Sodium (Lovenox) 40 mg SC DAILY [facility] Last Admin: 05/06/18 09:20 Dose: 40 mg Folic Acid (Folic Acid) 1 mg PO DAILY [facility] Last Admin: 05/06/18 09:21 Dose: 1 mg Meropenem 1 gm/ Sodium (Chloride) 100 mls @ 100 mls/hr IVPB Q8H [facility]; Protocol Last Admin: 05/06/18 05:18 Dose: 100 mls/hr Vancomycin/Sodium Chloride (Vancomycin 1 Gm/Ns 200 Ml) 1 gm in 200 mls @ 133 mls/hr IVPB Q12H [facility]; Protocol Stop: 05/08/18 14:31 Last Admin: 05/06/18 01:55 Dose: 133 mls/hr Ibuprofen (Motrin Tab) 400 mg PO Q6H [facility] Stop: 05/06/18 21:31 Last Admin: 05/06/18 09:20 Dose: 400 mg Lactobacillus Acidophilus (Lactobacillus) 1 cap PO BID [facility] Last Admin: 05/06/18 09:21 Dose: 1 cap Morphine Sulfate (Morphine) 0.5 mg IVP Q6H PRN PRN Reason: Pain, severe (8-10) Multivitamins (Hexavitamin) 1 tab PO DAILY [facility] Last Admin: 05/06/18 09:22 Dose: 1 tab Pantoprazole Sodium (Protonix Inj) 40 mg IVP DAILY [facility] Last Admin: 05/06/18 09:20 Dose: 40 mg Sennosides (Senokot Tab) 8.6 mg PO BID PRN PRN Reason: Constipation Last Admin: 05/01/18 09:24 Dose: 8.6 mg Thiamine HCl (Vitamin B1 Tab) 100 mg PO DAILY [facility] Last Admin: 05/06/18 09:21 Dose: 100 mg Tramadol HCl (Ultram) 25 mg PO TID PRN PRN Reason: Pain, moderate (4-7) Last Admin: 05/06/18 00:54 Dose: 25 mg - Labs Labs: 05/06/18 07:02 05/06/18 07:02 PT 13.7 SECONDS (9.7-12.2) H 04/24/18 06:26 INR 1.3 04/24/18 06:26 APTT 42 SECONDS (21-34) H 04/24/18 06:26 Assessment and Plan (1) Acute respiratory failure Status: Acute (2) Aspiration pneumonia Status: Acute (3) Delirium tremens Status: Acute (4) Constipation Status: Acute (5) Empyema Status: Acute (6) Alcohol abuse Status: Acute (7) Deep vein thrombosis of upper extremity Status: Acute Attending/Attestation - Attestation I have personally seen and examined this patient.: Yes I have fully participated in the care of the patient.: Yes I have reviewed all pertinent clinical information, including history, physical exam and plan: Yes Notes (Text): This is a late computer entry for May 05, 2018. Patient seen, examined, case discussed with medical concierge. Patient seen on third floor accompanied by his in the late afternoon. Patient speaks Frisian recognizes me and my resident at bedside is able to say the correct day of the week at time as well as president. Patient continues to report soreness over the chest tubes reports pain scale 3 out of 10. He did have a bowel movement yesterday. Patient has not been to chair today he has been in bed all day I did advise him and his at bedside that he should be sitting in the chair to reduce his risk for any clots. Postoperative management per cardiothoracic surgery. Continue to monitor output from the chest tubes chest tube still shows an a nterior and posterior. Pending PT OT reevaluation. Cultures are still negative to date. Patient remains afebrile. Patient is still currently on both vancomycin and meropenem. Patient's next vancomycin trough should be May 07. Assessment/Plan 1). Sepsis Secondary to Right Middle and Lower Lobe Pneumonia and Suspected Empyema * Infectious Disease (Dr. Spring) on case * Cardiothoracic Surgery Dr. Meza: Chest tube placed 04/18/18 and pleural fluid culture will have to be followed up * Post operative note April 24, 2018. Patient underwent a right thoracotomy, decortication of the right lung, drainage of the right lung infection/exudates, right middle inferior lobe biopsy performed, right-sided chest tube placement x2. Specimen noted portion of the middle lobe of the right lobe, portion of the lower lobe on right lung, right lung fluid/hematoma. * Lung Tissue Culture 04/24/18 is negative to date * Pleural Fluid Culture 04/24/18 is negative to date * Pleural Fluid Fungal Culture 04/24/18 is negative * Pleural Fluid Mycobacterium Culture 04/24/18 shows NO AFB * Criteria: Leukocytosis, fever, pneumonia/empyema * CT chest from Apr 15, 2018. Cardiomegaly. Trace pericardial effusion. Coronary artery calcifications. Extensive consolidation throughout the right hemithorax with relative sparing of the right lung apex. Small loculated right-sided pleural effusion measuring approximately 2.1 cm in maximum depth superinfection is not excluded. Mild left basal bibasilar atelectasis. Left hemithorax. Otherwise grossly clear. Limited visualization of the upper abdomen reveals hepatomegaly. Diffuse hepatic steatosis with 2 more focal hypodense regions favored to represent focal fatty infiltration. * CT chest from Apr 17 was suboptimal. No evidence of central pulmonary embolus. Interval worsening of airspace consolidation at the right lung contains foci of low-attenuation possible fluid collection since prior study interval worsening of the right-sided multiple likely request for sacral pleural effusion. * CT chest from 04/20/2018 noted for decreased right pleural effusion. Right chest tube. Extensive right lower lobe atelectasis with right middle lobe and left lower lobe segmental atelectasis. Small left pleural effusion. No pneumothorax. Endotracheal tube and nasogastric tube noted. * Chest xray (04/25/18): postop changes are slowly resolving at the right hemithorax as post decorticulation previously. Tube and catheters unchanged in position with right basilar atectasis favored over infiltrate. Mild right pleural effusion is noted including the minor fissue. Limited left perihilar opacity density noted. * CT Chest 05/04/18: suture material along the right lateral chest wall. small right hydropneumothorac. Right sided chest tube. Scattered right mid to lower lobe infiltrate or atecltasis. 2.3X7.7X5.6cm right chest wall collection. righ t 6th and 7th rib fractures. * Azithromycin and Rocephin were discontinued on 04/15/18 * Zosyn 3.375 gm IV Q6H (04/15/18 through 04/16/18) * Tamiflu 75 mg PO 2x/day (04/14/18 through 04/19/18) * Gentamicin 80mg IV Q12H (04/21/18 through 04/25/18) * Micafungin 100mg IV Q24H (04/23/18 through 04/27/18) * Clindamycin 900 mg IV Q8H (04/16/18 through 04/27/18) * Amikacin 500mg IVPB Q12H (04/25/18 through 04/30/18) Current IV Abx: * Vancomycin 1.25 gm IV Q12H (04/15/18) dose adjusted to Vancomycin 1500gm IV Q12H (active since 04/21/18); changed to vancomycin 1 gram IV Q12H (evening of 05/03/18) * Meropenem 1 gm IV Q8H (04/16/18) 2). Acute Respiratory Failure secondary to Pneumonia/Empyema Assessment/Plan * Patient was intubated and placed on vent on evening 04/15/18 after he started to have DTs * Patient was on Vent from admission through 04/28/18 * Patient is extubated and stabilized from the ICU to the general medical floor. 3). Alcohol Withdrawal DTs Assessment/Plan * MVI tab PO daily * Vitamin B1 tab PO daily * Folic Acid 1 tab PO daily * Social work: alcohol anonymous 4). Bilateral Perinephric Stranding (resolved) As seen on CT Abdomen/Pelvis * UA shows NEGATIVE Nitrate, Ketones, and LE * Repeat urine cultures are negative * While intubated did have roman but is now using urinal 5). Alcohol Abuse * Patient revealed 04/14/18 that he drank shots and multiple beers twice a week but told overnight team at time of admission that he did this 5x per week. * Last drink was this past Friday04/10/18 as per patient * MVI tab PO daily * Vitamin B1 tab PO daily * Folic Acid 1 tab PO daily 6). Hyponatremia (resolved) * Likely SIADH * TSH and T4 are normal * Morning Cortisol normal * Triglycerides normal * Urine Osm was high * Urine Na was 35 7). Tachycardia * continue to monitor * possible secondary to pain recent cardiothoracic surgery * Surgeon recommends against therapuetic lovenox in regards to prior cephalic vein thrombosis; patient is on scheduled Motrin for treatment of cephalic vein thrombosis 8). Elevated LFTs and Hepatic Parenchymal Disease (as seen CT Abdomen) Likely secondary to suspected alcohol abuse * Hepatitis Panel negative * HIV negative * UDS negative * On CT scan noted hepatomegaly * Normalized 9). Hypokalemia * monitor and replete 10). Hypomagnesemia * monitor and replete 11). Constipation (resolved) * had BM 05/04/18 12) Bilateral Cephalic Vein Thrombosises * Patient was on therapeutic lovenox 100mg subq12 Hr held prior to OR 04/23/18 * As these are NOT DVTS, therapeutic lovenox was discontinued * Motrin 400mg PO6H changed from PRN for fever to scheduled for treatment of superficial vein thrombosis. 13). Prophylaxis * DVT risk score of 2 based upon Age and diagnosis of Sepsis: Lovenox 40mg franz bqdaily Bilateral SCDs * Extubated * Jevity was given via OGT while he was intubated * Lactobacillus PO 2x/day * Lovenox 40mg subdaily * TLC placed on 04/22/18 * Reconsult PT/OT Updated: 05/04/18: resident has spoken with radiology advised against for MRI for ruling out DVT; recommends for specialized CT scan by IR if necessary. I have d/c MRIs. There is no tachycardia, no appreciable edema. CT surgery has ordered for CT chest today; f/u. PT/OT reordered since patient is transferred out from ICU. Vancomycin trough ordered for 12PM tomorrow. 05/05/18: Reemphasize patient bed to chair. Postoperative management in regards to chest tubes per chronic cardiothoracic surgery. Continue antibiotic treatmen t.
[2018-05-05] MEDS: Enoxaparin 40 mg Syringe SC SCH (11:00)
[2018-05-05] MEDS: Multiple Vitamins Tab PO SCH (11:00)
[2018-05-05] MEDS: Lactobacillus Acidophilus 500 MU Cap PO SCH ×2 (11:00→17:35)
--- NOTE | 2018-05-05 17:59 | RAD ---
Date of service: 05/05/2018 HISTORY: chest tubes not draining as much COMPARISON: Multiple serial examinations preceding the most recent study: 2018. TECHNIQUE: Chest PA and lateral FINDINGS: LUNGS: Stable consolidative changes right lung. PLEURA: Stable right pleural effusion. Two chest tubes remain in the right pleural space, both tips in the right apex. CARDIOVASCULAR: No aortic atherosclerotic calcification present. No radiographic findings to suggest acute or significant cardiovascular disease. No pulmonary vascular congestion. OSSEOUS STRUCTURES: No significant abnormalities. VISUALIZED UPPER ABDOMEN: Normal. OTHER FINDINGS: None. IMPRESSION: Stable position of chest tubes in the right pleural space. No visible pneumothorax. Chest tubes remain in stable position in the apex of the right lung.
[2018-05-06] MEDS: Tramadol 25 mg PO PRN (00:54)
[2018-05-06] MEDS: Vancomycin 1 gm/NS 200 ml 1 GM/200 ML BAG IVPB SCH ×2 (01:55→14:17)
[2018-05-06] MEDS: Albuterol-Ipratrop 3 mg / 0.5 (3 ml) UD INH SCH ×4 (02:04→20:37)
[2018-05-06] MEDS: Meropenem 1 GM in Sodium Chloride 0.9% 100 ML IVPB SCH ×3 (05:18→20:57)
[2018-05-06 07:11] LABS: BASO # 0.1 K/uL (0.0-0.2); BASO % 1.3 % (0.0-2.0); EOS # 0.2 K/uL (0.0-0.7); EOS % 3.1 % (0.0-4.0); HEMOGLOBIN 10.5 g/dL (12.0-18.0); LYMPH # 1.3 K/uL (1.0-4.3); LYMPH % 15.9 % (20.0-40.0); MEAN CELL VOLUME 89.8 fL (80.0-94.0); MEAN CORPUSCULAR HGB CONC 33.4 g/dL (33.0-37.0); MEAN PLATELET VOLUME 8.7 fL (7.2-11.7); MONO # 1.2 K/uL (0.0-0.8); MONO % 14.8 % (0.0-10.0); NEUT # 5.1 K/uL (1.8-7.0); NEUT % 64.9 % (50.0-75.0); NRBC % 0.1 % (0.0-2.0); RBC 3.52 Mil/uL (4.40-5.90); WHITE BLOOD COUNT 7.9 K/uL (4.8-10.8)
[2018-05-06 07:33] LABS: ALB/GLOB RATIO 0.7 (1.0-2.1); ALBUMIN 2.9 g/dL (3.5-5.0); ALT/SGPT 38 U/L (21-72); AST/SGOT 36 U/L (17-59); BLOOD UREA NITROGEN 10 mg/dL (9-20); CALCIUM 8.3 mg/dl (8.6-10.4); GFR NON-AFRICAN AMERICAN > 60
[2018-05-06] MEDS ORDERED: Lidocaine 5% Patch TD ONE (08:00)
[2018-05-06] MEDS: Enoxaparin 40 mg Syringe SC SCH (09:20)
[2018-05-06] MEDS: Lactobacillus Acidophilus 500 MU Cap PO SCH ×2 (09:21→18:00)
[2018-05-06] MEDS: Multiple Vitamins Tab PO SCH (09:22)
--- NOTE | 2018-05-06 12:47 | CP.PCM.PN ---
Subjective - Date & Time of Evaluation Date of Evaluation: 05/06/18 Time of Evaluation: 12:36 - Subjective Subjective: Pt s/e, No c/o. afebrile. vss/ wbc-7.9 chest tubes: 80/110/ss-No air leak. ct chest of last friday: almost complete re-expansion of right lung-small loculated effusion(paramediastinal, basilar, and lateral) with peripheral atelectasis.Chest wall loculated seroma(will be reabsorbed) Path: consistent with pneumonia and empyema with trapped lung. a/p: Pt is doing well. Continue chest tubes to suction. Continue supportive care with daily labs, antibiotics, and incentive spirometer. Objective - Vital Signs/Intake and Output Vital Signs (last 24 hours): Temp Pulse Resp BP Pulse Ox 98.3 F 102 H 20 107/66 96 05/06/18 08:03 05/06/18 08:03 05/06/18 08:03 05/06/18 08:03 05/06/18 08:03 Intake and Output: 05/06/18 05/06/18 06:59 18:59 Intake Total 450 540 Output Total 100 610 Balance 350 -70 - Medications Medications: Current Medications Albuterol/Ipratropium (Duoneb 3 Mg/0.5 Mg (3 Ml) Ud) 3 ml INH RQ6 [facility] Last Admin: 05/06/18 07:30 Dose: 3 ml Docusate Sodium (Colace) 100 mg PO TID [facility] Last Admin: 05/06/18 09:21 Dose: 100 mg Enoxaparin Sodium (Lovenox) 40 mg SC DAILY [facility] Last Admin: 05/06/18 09:20 Dose: 40 mg Folic Acid (Folic Acid) 1 mg PO DAILY [facility] Last Admin: 05/06/18 09:21 Dose: 1 mg Meropenem 1 gm/ Sodium (Chloride) 100 mls @ 100 mls/hr IVPB Q8H [facility]; Protocol Last Admin: 05/06/18 05:18 Dose: 100 mls/hr Vancomycin/Sodium Chloride (Vancomycin 1 Gm/Ns 200 Ml) 1 gm in 200 mls @ 133 mls/hr IVPB Q12H [facility]; Protocol Stop: 05/08/18 14:31 Last Admin: 05/06/18 01:55 Dose: 133 mls/hr Ibuprofen (Motrin Tab) 400 mg PO Q6H [facility] Stop: 05/06/18 21:31 Last Admin: 05/06/18 09:20 Dose: 400 mg Lactobacillus Acidophilus (Lactobacillus) 1 cap PO BID [facility] Last Admin: 05/06/18 09:21 Dose: 1 cap Morphine Sulfate (Morphine) 0.5 mg IVP Q6H PRN PRN Reason: Pain, severe (8-10) Multivitamins (Hexavitamin) 1 tab PO DAILY [facility] Last Admin: 05/06/18 09:22 Dose: 1 tab Pantoprazole Sodium (Protonix Inj) 40 mg IVP DAILY [facility] Last Admin: 05/06/18 09:20 Dose: 40 mg Sennosides (Senokot Tab) 8.6 mg PO BID PRN PRN Reason: Constipation Last Admin: 05/01/18 09:24 Dose: 8.6 mg Thiamine HCl (Vitamin B1 Tab) 100 mg PO DAILY [facility] Last Admin: 05/06/18 09:21 Dose: 100 mg Tramadol HCl (Ultram) 25 mg PO TID PRN PRN Reason: Pain, moderate (4-7) Last Admin: 05/06/18 00:54 Dose: 25 mg - Labs Labs: 05/06/18 07:02 05/06/18 07:02 PT 13.7 SECONDS (9.7-12.2) H 04/24/18 06:26 INR 1.3 04/24/18 06:26 APTT 42 SECONDS (21-34) H 04/24/18 06:26
--- NOTE | 2018-05-06 14:04 | RAD ---
Date of service: 05/06/2018 HISTORY: chest tubes COMPARISON: Comparison is made with 05/05/2018 FINDINGS: LUNGS: The right lung is again small in size likely due to partial atelectasis of the right lower lobe. There is mild interval improvement in the right lung compared to the previous exam. PLEURA: Right pleural effusion and pleural thickening is again noted. Again noted are 2 chest tubes extending to the right chest cavity CARDIOVASCULAR: No aortic atherosclerotic calcification present. Normal cardiac size. No pulmonary vascular congestion. OSSEOUS STRUCTURES: No significant abnormalities. VISUALIZED UPPER ABDOMEN: Normal. OTHER FINDINGS: None. IMPRESSION: Interval mild improvement in the right lung compared to the previous exam.
--- NOTE | 2018-05-06 15:54 | CP.PCM.PN ---
<CourtneyEdi - Last Filed: 05/06/18 15:54> Subjective - Date & Time of Evaluation Date of Evaluation: 05/06/18 Time of Evaluation: 15:52 - Subjective Subjective: HOSPITALIST SERVICE Pt was seen at bedside today, he complained of new onset left lateral knee joint pain. Denies having a bowel movement since yesterday, N/V, F/C. ROS: Positive for left lateral knee joint pain; negative for CP, SOB, abd pain. Objective - Vital Signs/Intake and Output Vital Signs (last 24 hours): Temp Pulse Resp BP Pulse Ox 98.3 F 102 H 20 107/66 96 05/06/18 08:03 05/06/18 08:03 05/06/18 08:03 05/06/18 08:03 05/06/18 08:03 Intake and Output: 05/06/18 05/06/18 06:59 18:59 Intake Total 450 1240 Output Total 100 668 Balance 350 572 - Medications Medications: Current Medications Albuterol/Ipratropium (Duoneb 3 Mg/0.5 Mg (3 Ml) Ud) 3 ml INH RQ6 [facility] Last Admin: 05/06/18 13:15 Dose: 3 ml Docusate Sodium (Colace) 100 mg PO TID [facility] Last Admin: 05/06/18 14:17 Dose: 100 mg Enoxaparin Sodium (Lovenox) 40 mg SC DAILY [facility] Last Admin: 05/06/18 09:20 Dose: 40 mg Folic Acid (Folic Acid) 1 mg PO DAILY [facility] Last Admin: 05/06/18 09:21 Dose: 1 mg Meropenem 1 gm/ Sodium (Chloride) 100 mls @ 100 mls/hr IVPB Q8H [facility]; Protocol Last Admin: 05/06/18 12:53 Dose: 100 mls/hr Ibuprofen (Motrin Tab) 400 mg PO Q6H [facility] Stop: 05/06/18 21:31 Last Admin: 05/06/18 09:20 Dose: 400 mg Lactobacillus Acidophilus (Lactobacillus) 1 cap PO BID [facility] Last Admin: 05/06/18 09:21 Dose: 1 cap Morphine Sulfate (Morphine) 0.5 mg IVP Q6H PRN PRN Reason: Pain, severe (8-10) Multivitamins (Hexavitamin) 1 tab PO DAILY [facility] Last Admin: 05/06/18 09:22 Dose: 1 tab Pantoprazole Sodium (Protonix Inj) 40 mg IVP DAILY [facility] Last Admin: 05/06/18 09:20 Dose: 40 mg Sennosides (Senokot Tab) 8.6 mg PO BID PRN PRN Reason: Constipation Last Admin: 05/01/18 09:24 Dose: 8.6 mg Thiamine HCl (Vitamin B1 Tab) 100 mg PO DAILY [facility] Last Admin: 05/06/18 09:21 Dose: 100 mg Tramadol HCl (Ultram) 25 mg PO TID PRN PRN Reason: Pain, moderate (4-7) Last Admin: 05/06/18 00:54 Dose: 25 mg - Labs Labs: 05/06/18 07:02 05/06/18 07:02 PT 13.7 SECONDS (9.7-12.2) H 04/24/18 06:26 INR 1.3 04/24/18 06:26 APTT 42 SECONDS (21-34) H 04/24/18 06:26 - Additional Findings Additional findings: Head: Positive for: Atraumatic, Normocephalic Pupils: Positive for: PERRL Extroacular Muscles: Positive for: EOMI Neck: Positive for: Normal Range of Motion Respiratory/Chest: Positive for: Decreased Breath Sounds (right middle and lower lobes ), rales. Negative for: Respiratory Distress, Accessory Muscle Use R Chest Tube:10cc overnight L Chest Tube:10cc overnight Cardiovascular: Positive for: Regular Rate and Rhythm, Normal S1, S2 Abdomen: Positive for: Distention, Normal Bowel Sounds. Negative for: Tenderness Upper Extremity: Positive for: Normal Inspection. Negative for: Cyanosis, Edema Lower Extremity: Positive for: Normal Inspection. Negative for: Edema, Positive L Knee Varus pain and pain with adduction Neurological: Positive for: CN II-XII Intact, Speech Normal Skin: Positive for: Warm, Dry, Normal Color Psychiatric: Positive for: Alert, Oriented x 3, Normal Insight, Normal Concentration Assessment and Plan - Assessment and Plan (Free Text) Assessment: 43M admitted for Sepsis 2/2 to pna/ possible empyema Assessment/Plan Sepsis Secondary to Right Middle and Lower Lobe Pneumonia and Suspected Empyema * afebrile >36hrs, WBCs wnl * encourage out of bed to chair and incentive spirometer use * Infectious Disease (Dr. Spring) on case * Cardiothoracic Surgery Dr. Meza: Chest tube placed 04/18/18 (R) anterior chest tube 10cc x24hrs serosanguinous fluid (R) posterior chest tube 10cc x24hrs serosanguinous fluid daily CXRs maintain suction * Post operative note April 24, 2018. Patient underwent a right thoracotomy, decortication of the right lung, drainage of the right lung infection/exudates, right middle inferior lobe biopsy performed, right-sided c hest tube placement x2. Specimen noted portion of the middle lobe of the right lobe, portion of the lower lobe on right lung, right lung fluid/hematoma. * 04/24/18 Tissue Culture: No growth after 24 hours * 04/24/18 Pleural Fluid: no growth after 24 hours * 04/24/18 Lung: No growth after 24 hours * 04/24/18 Lung: No growth after 24 hours * Leukocytosis, fever, pneumonia/empyema * CT chest from Apr 15, 2018. Cardiomegaly. Trace pericardial effusion. Coronary artery calcifications. Extensive consolidation throughout the right hemithorax with relative sparing of the right lung apex. Small loculated right-sided pleural effusion measuring approximately 2.1 cm in maximum depth superinfection is not excluded. Mild left basal bibasilar atelectasis. Left hemithorax. Otherwise grossly clear. Limited visualization of the upper abdomen reveals hepatomegaly. Diffuse hepatic steatosis with 2 more focal hypodense regions favored to represent focal fatty infiltration. * CT chest from Apr 17 was suboptimal. No evidence of central pulmonary embolus. Interval worsening of airspace consolidation at the right lung contains foci of low-attenuation possible fluid collection since prior study interval worsening of the right-sided multiple likely request for sacral pleural effusion. * CT chest from 04/20/2018 noted for decreased right pleural effusion. Right chest tube. Extensive right lower lobe atelectasis with right middle lobe and left lower lobe segmental atelectasis. Small left pleural effusion. No pneumothorax. Endotracheal tube and nasogastric tube noted. * Chest xray (04/25/18): postop changes are slowly resolving at the right hemithorax as post decorticulation previously. Tube and catheters unchanged in position with right basilar atectasis favored over infiltrate. Mild right pleu ral effusion is noted including the minor fissue. Limited left perihilar opacity density noted. * CT chest 05/04/18: suture material along right lateral chest wall. small right hydropneumothorax. right sided cehst tube. scattered right mid to lower lobe infiltrate or atelectasis. 2.6x7.7x5.6cm right chest wall collection - consider hematoma or abscess. right 6th and 7th rib fractures. subtle hypode nsidty in anterior right hepatic lobe, indeterminate. * Azithromycin and Rocephin were discontinued on 04/15/18 * Zosyn 3.375 gm IV Q6H (04/15/18 through 04/16/18) * Tamiflu 75 mg PO 2x/day (04/14/18 through 04/19/18) * Gentamicin 80mg IV Q12H (04/21/18 through 04/25/18) * Micafungin 100mg IV Q24H (04/23/18 through 04/27/18) * Clindamycin 900 mg IV Q8H (04/16/18 through 04/27/18) * Amikacin 500mg IVPB Q12H (04/25/18 through 04/30/18) Current IV Abx: * Vancomycin 1 gm IV Q12H (04/15/18) last trough 12 * Meropenem 1 gm IV Q8H (04/16/18) * Blood Culture 04/13/18: is negative to date * Blood culture 04/21/18: negative. * Urine culture 04/21/18: negative. * Pleural fluid (04/18/18): no anaerobes isolated. Fungal culture--prelim * Pleural fluid (04/18/18): no growth. * Bronchial Washings: 04/19/18: Normal saphrophytic john paul, fungal culture-prelim * Myocbacterial Culture and IGs Neg * Procalcitonin: 1.64 * s/p OR (04/24/18)-->bx of lung taken, removal of purulent material from right lung. Anterior and posterior chest tubes. 1 units given in OR of PRBC; 2 units post RBC Acute Respiratory Failure secondary to Pneumonia/Empyema * Patient was intubated and placed on vent on evening 04/15/18 after he started to have DTs * Patient was on Vent from admission through 04/28/18 * While intubated was given Fentanyl, Versed, Propofol, Precdex Alcohol Withdrawal DTs * MVI tab PO daily * Vitamin B1 tab PO daily * Folic Acid 1 tab PO daily IT band distal bursitis -continue with with ibuprofen -topical lidoderm Bilateral Perinephric Stranding (resolved) As seen on CT Abdomen/Pelvis * UA shows NEGATIVE Nitrate, Ketones, and LE * Repeat urine cultures are negative * While intubated did have roman but is now using urinal Alcohol Abuse * Patient revealed 04/14/18 that he drank shots and multiple beers twice a week but told overnight team at time of admission that he did this 5x per week. * Last drink was this past Friday04/10/18 as per patient * MVI tab PO daily * Vitamin B1 tab PO daily * Folic Acid 1 tab PO daily Electrolyte abnormalities (resolved) Tachycardia * Postoperative 2 from cardiothoracic surgery Elevated LFTs and Hepatic Parenchymal Disease (as seen CT Abdomen) Likely secondary to suspected alcohol abuse Improved * Hepatitis Panel negative * HIV negative * UDS negative * On CT scan noted hepatomegaly Constipation resolved Bilateral Cephalic Vein Thrombosises * Patient was on therapeutic lovenox 100mg subq12 Hr held prior to OR 04/23/18 * As these are NOT DVTS, therapeutic lovenox was discontinued * Ibuprofen 600mg q8 PO patrick Prophylaxis * DVT risk score of 2 based upon Age and diagnosis of Sepsis: Lovenox 40mg subqdaily Bilateral SCDs * As patient was intubated 04/15/18, Protonix 40 mg IV 1x/day was started * Jevity was given via OGT while he was intubated * Lactobacillus PO 2x/day * Therapuetic Lovenox 100 mg SC Q12H held 04/23/18. * TLC placed on 04/22/18 Dispo: Pt making remarkable recovery. possible d/c soon pending chest tube removals and effusion resolution Patient seen and case reviewed with Dr. Mg <Daylin Mg V - Last Filed: 05/08/18 15:39> Objective - Vital Signs/Intake and Output Vital Signs (last 24 hours): Temp Pulse Resp BP Pulse Ox 98.4 F 98 H 20 105/66 95 05/08/18 08:26 05/08/18 08:26 05/08/18 08:26 05/08/18 08:26 05/08/18 08:26 Intake and Output: 05/08/18 05/08/18 06:59 18:59 Intake Total 1300 Output Total 880 1860 Balance -880 -560 - Medications Medications: Current Medications Albuterol/Ipratropium (Duoneb 3 Mg/0.5 Mg (3 Ml) Ud) 3 ml INH RQ6 [facility] Last Admin: 05/08/18 13:30 Dose: 3 ml Docusate Sodium (Colace) 100 mg PO TID [facility] Last Admin: 05/08/18 13:13 Dose: 100 mg Enoxaparin Sodium (Lovenox) 40 mg SC DAILY [facility] Last Admin: 05/08/18 09:51 Dose: 40 mg Folic Acid (Folic Acid) 1 mg PO DAILY [facility] Last Admin: 05/08/18 09:51 Dose: 1 mg Meropenem 1 gm/ Sodium (Chloride) 100 mls @ 100 mls/hr IVPB Q8H [facility]; Protocol Last Admin: 05/08/18 13:13 Dose: 100 mls/hr Vancomycin HCl 1,000 mg/ (Sodium Chloride) 250 mls @ 166.6 mls/hr IVPB Q12H [facility]; Protocol Last Admin: 05/08/18 10:25 Dose: 166.6 mls/hr Lactobacillus Acidophilus (Lactobacillus) 1 cap PO BID [facility] Last Admin: 05/08/18 10:01 Dose: 1 cap Multivitamins (Hexavitamin) 1 tab PO DAILY [facility] Last Admin: 05/08/18 09:51 Dose: 1 tab Pantoprazole Sodium (Protonix Inj) 40 mg IVP DAILY [facility] Last Admin: 05/08/18 09:52 Dose: 40 mg Sennosides (Senokot Tab) 8.6 mg PO BID PRN PRN Reason: Constipation Last Admin: 05/01/18 09:24 Dose: 8.6 mg Thiamine HCl (Vitamin B1 Tab) 100 mg PO DAILY [facility] Last Admin: 05/08/18 09:51 Dose: 100 mg Tramadol HCl (Ultram) 25 mg PO TID PRN PRN Reason: Pain, moderate (4-7) Last Admin: 05/08/18 05:44 Dose: 25 mg - Labs Labs: 05/08/18 07:06 05/08/18 07:06 PT 13.7 SECONDS (9.7-12.2) H 04/24/18 06:26 INR 1.3 04/24/18 06:26 APTT 42 SECONDS (21-34) H 04/24/18 06:26 Assessment and Plan (1) Acute respiratory failure Status: Acute (2) Aspiration pneumonia Status: Acute (3) Delirium tremens Status: Acute (4) Constipation Status: Acute (5) Empyema Status: Acute (6) Alcohol abuse Status: Acute (7) Deep vein thrombosis of upper extremity Status: Acute Attending/Attestation - Attestation I have personally seen and examined this patient.: Yes I have fully participated in the care of the patient.: Yes I have reviewed all pertinent clinical information, including history, physical exam and plan: Yes Notes (Text): This is a late computer entry for May 06, 2018. Patient seen, examined, case discussed with medical collector. Patient seen on third floor accompanied by his in the late afternoon. Patient was seen by cardiothoracic surgeon today. Patient continues to 3 chest tubes both anterior and posterior. But it is decreasing. We did reemphasize the patient is sitting to the chair. Postoperative management per cardiothoracic surgery. Patient still on both vancomycin and meropenem. We will repeat pro Calcitonin to show for resolution.. Suspect tachycardia secondary to pain associated to chest tubes night of postoperative thoracic surgery. Assessment/Plan 1). Sepsis Secondary to Right Middle and Lower Lobe Pneumonia and Suspected Empyema * Infectious Disease (Dr. Spring) on case * Cardiothoracic Surgery Dr. Meza: Chest tube placed 04/18/18 and pleural fluid culture will have to be followed up * Post operative note April 24, 2018. Patient underwent a right thoracotomy, decortication of the right lung, drainage of the right lung infection/exudates, right middle inferior lobe biopsy performed, right-sided chest tube placement x2. Specimen noted portion of the middle lobe of the right lobe, portion of the lower lobe on right lung, right lung fluid/hematoma. * Lung Tissue Culture 04/24/18 is negative to date * Pleural Fluid Culture 04/24/18 is negative to date * Pleural Fluid Fungal Culture 04/24/18 is negative * Pleural Fluid Mycobacterium Culture 04/24/18 shows NO AFB * Criteria: Leukocytosis, fever, pneumonia/empyema * CT chest from Apr 15, 2018. Cardiomegaly. Trace pericardial effusion. Coronary artery calcifications. Extensive consolidation throughout the right hemithorax with relative sparing of the right lung apex. Small loculated right-sided pleural effusion measuring approximately 2.1 cm in maximum depth superinfection is not excluded. Mild left basal bibasilar atelectasis. Left hemithorax. Otherwise grossly clear. Limited visualization of the upper abdomen reveals hepatomegaly. Diffuse hepatic steatosis with 2 more focal hypodense regions favored to represent focal fatty infiltration. * CT chest from Apr 17 was suboptimal. No evidence of central pulmonary embolus. Interval worsening of airspace consolidation at the right lung contains foci of low-attenuation possible fluid collection since prior study interval worsening of the right-sided multiple likely request for sacral pleu ral effusion. * CT chest from 04/20/2018 noted for decreased right pleural effusion. Right chest tube. Extensive right lower lobe atelectasis with right middle lobe and left lower lobe segmental atelectasis. Small left pleural effusion. No pneumothorax. Endotracheal tube and nasogastric tube noted. * Chest xray (04/25/18): postop changes are slowly resolving at the right hemithorax as post decorticulation previously. Tube and catheters unchanged in position with right basilar atectasis favored over infiltrate. Mild right pleural effusion is noted including the minor fissue. Limited left perihilar opacity density noted. * CT Chest 05/04/18: suture material along the right lateral chest wall. small right hydropneumothorac. Right sided chest tube. Scattered right mid to lower lobe infiltrate or atecltasis. 2.3X7.7X5.6cm right chest wall collection. right 6th and 7th rib fractures. * Azithromycin and Rocephin were discontinued on 04/15/18 * Zosyn 3.375 gm IV Q6H (04/15/18 through 04/16/18) * Tamiflu 75 mg PO 2x/day (04/14/18 through 04/19/18) * Gentamicin 80mg IV Q12H (04/21/18 through 04/25/18) * Micafungin 100mg IV Q24H (04/23/18 through 04/27/18) * Clindamycin 900 mg IV Q8H (04/16/18 through 04/27/18) * Amikacin 500mg IVPB Q12H (04/25/18 through 04/30/18) Current IV Abx: * Vancomycin 1.25 gm IV Q12H (04/15/18) dose adjusted to Vancomycin 1500gm IV Q12H (active since 04/21/18); changed to vancomycin 1 gram IV Q12H (evening of 05/03/18) * Meropenem 1 gm IV Q8H (04/16/18) 2). Acute Respiratory Failure secondary to Pneumonia/Empyema Assessment/Plan * Patient was intubated and placed on vent on evening 04/15/18 after he started to have DTs * Patient was on Vent from admission through 04/28/18 * Patient is extubated and stabilized from the ICU to the general medical floor. 3). Alcohol Withdrawal DTs Assessment/Plan * MVI tab PO daily * Vitamin B1 tab PO daily * Folic Acid 1 tab PO daily * Social work: alcohol anonymous 4). Bilateral Perinephric Stranding (resolved) As seen on CT Abdomen/Pelvis * UA shows NEGATIVE Nitrate, Ketones, and LE * Repeat urine cultures are negative * While intubated did have roman but is now using urinal 5). Alcohol Abuse * Patient revealed 04/14/18 that he drank shots and multiple beers twice a week but told overnight team at time of admission that he did this 5x per week. * Last drink was this past Friday04/10/18 as per patient * MVI tab PO daily * Vitamin B1 tab PO daily * Folic Acid 1 tab PO daily 6). Hyponatremia (resolved) * Likely SIADH * TSH and T4 are normal * Morning Cortisol normal * Triglycerides normal * Urine Osm was high * Urine Na was 35 7). Tachycardia * continue to monitor * possible secondary to pain recent cardiothoracic surgery * Surgeon recommends against therapuetic lovenox in regards to prior cephalic vein thrombosis; patient is on scheduled Motrin for treatment of cephalic vein thrombosis 8). Elevated LFTs and Hepatic Parenchymal Disease (as seen CT Abdomen) Likely secondary to suspected alcohol abuse * Hepatitis Panel negative * HIV negative * UDS negative * On CT scan noted hepatomegaly * Normalized 9). Hypokalemia * monitor and replete 10). Hypomagnesemia * monitor and replete 11). Constipation (resolved) * continue to monitor 12) Bilateral Cephalic Vein Thrombosises * Patient was on therapeutic lovenox 100mg subq12 Hr held prior to OR 04/23/18 * As these are NOT DVTS, therapeutic lovenox was discontinued * Motrin 400mg PO6H changed from PRN for fever to scheduled for treatment of superficial vein thrombosis. 13). Prophylaxis * DVT risk score of 2 based upon Age and diagnosis of Sepsis: Lovenox 40mg subqdaily Bilateral SCDs * Extubated * Jevity was given via OGT while he was intubated * Lactobacillus PO 2x/day * Lovenox 40mg subdaily * TLC placed on 04/22/18 * Reconsult PT/OT Updated: 05/04/18: resident has spoken with radiology advised against for MRI for ruling out DVT; recommends for specialized CT scan by IR if necessary. I have d/c MRIs. There is no tachycardia, no appreciable edema. CT surgery has ordered for CT chest today; f/u. PT/OT reordered since patient is transferred out from ICU. Vancomycin trough ordered for 12PM tomorrow. 05/05/18: Reemphasize patient bed to chair. Postoperative management in regards to chest tubes per chronic cardiothoracic surgery. Continue antibiotic treatment. 05/06/18: seen and evaluated by cardiothoracic surgeon. patient seen with at bedside.
[2018-05-07] MEDS: Albuterol-Ipratrop 3 mg / 0.5 (3 ml) UD INH SCH ×4 (02:00→20:39)
[2018-05-07] MEDS: Meropenem 1 GM in Sodium Chloride 0.9% 100 ML IVPB SCH ×3 (05:29→21:32)
--- NOTE | 2018-05-07 07:09 | CP.PCM.PN ---
<Edi Valdez - Last Filed: 05/07/18 13:49> Subjective - Date & Time of Evaluation Date of Evaluation: 05/07/18 Time of Evaluation: 07:06 - Subjective Subjective: HOSPITALIST SERVICE Pt seen and examined at bedside. Pt reports resolution of knee pain, abdominal bloating, had a normal BM yesterday. Pt denies any acute events overnight, per nursing ant chest tube 45 and posterior 55. Pt denies CP SOB FC [place] Objective - Vital Signs/Intake and Output Vital Signs (last 24 hours): Temp Pulse Resp BP Pulse Ox 99.0 F 100 H 20 113/74 96 05/07/18 00:00 05/07/18 00:00 05/07/18 00:00 05/07/18 00:00 05/07/18 00:00 Intake and Output: 05/07/18 05/07/18 06:59 18:59 Intake Total 1000 Output Total 927 Balance 73 - Medications Medications: Current Medications Albuterol/Ipratropium (Duoneb 3 Mg/0.5 Mg (3 Ml) Ud) 3 ml INH RQ6 [facility] Last Admin: 05/07/18 02:00 Dose: Not Given Docusate Sodium (Colace) 100 mg PO TID [facility] Last Admin: 05/06/18 18:00 Dose: 100 mg Enoxaparin Sodium (Lovenox) 40 mg SC DAILY [facility] Last Admin: 05/06/18 09:20 Dose: 40 mg Folic Acid (Folic Acid) 1 mg PO DAILY [facility] Last Admin: 05/06/18 09:21 Dose: 1 mg Meropenem 1 gm/ Sodium (Chloride) 100 mls @ 100 mls/hr IVPB Q8H [facility]; Protocol Last Admin: 05/07/18 05:29 Dose: 100 mls/hr Lactobacillus Acidophilus (Lactobacillus) 1 cap PO BID [facility] Last Admin: 05/06/18 18:00 Dose: 1 cap Morphine Sulfate (Morphine) 0.5 mg IVP Q6H PRN PRN Reason: Pain, severe (8-10) Multivitamins (Hexavitamin) 1 tab PO DAILY [facility] Last Admin: 05/06/18 09:22 Dose: 1 tab Pantoprazole Sodium (Protonix Inj) 40 mg IVP DAILY [facility] Last Admin: 05/06/18 09:20 Dose: 40 mg Sennosides (Senokot Tab) 8.6 mg PO BID PRN PRN Reason: Constipation Last Admin: 05/01/18 09:24 Dose: 8.6 mg Thiamine HCl (Vitamin B1 Tab) 100 mg PO DAILY [facility] Last Admin: 05/06/18 09:21 Dose: 100 mg Tramadol HCl (Ultram) 25 mg PO TID PRN PRN Reason: Pain, moderate (4-7) Last Admin: 05/06/18 00:54 Dose: 25 mg - Labs Labs: 05/06/18 07:02 05/06/18 07:02 PT 13.7 SECONDS (9.7-12.2) H 04/24/18 06:26 INR 1.3 04/24/18 06:26 APTT 42 SECONDS (21-34) H 04/24/18 06:26 Assessment and Plan - Assessment and Plan (Free Text) Assessment: Head: Positive for: Atraumatic, Normocephalic Pupils: Positive for: PERRL Extroacular Muscles: Positive for: EOMI Neck: Positive for: Normal Range of Motion Respiratory/Chest: Positive for: Decreased Breath Sounds (right middle and lower lobes ), rales. Negative for: Respiratory Distress, Accessory Muscle Use A Chest Tube:45cc overnight P Chest Tube:55cc overnight Cardiovascular: Positive for: Regular Rate and Rhythm, Normal S1, S2 Abdomen: Positive for: Distention, Normal Bowel Sounds. Negative for: Tenderness Upper Extremity: Positive for: Normal Inspection. Negative for: Cyanosis, Edema Lower Extremity: Positive for: Normal Inspection. Negative for: Edema, Positive L Knee Varus pain and pain with adduction Neurological: Positive for: CN II-XII Intact, Speech Normal Skin: Positive for: Warm, Dry, Normal Color Psychiatric: Positive for: Alert, Oriented x 3, Normal Insight, Normal Concentration Assessment and Plan - Assessment and Plan (Free Text) Assessment: 43M admitted for Sepsis 2/2 to pna/ possible empyema Assessment/Plan Sepsis Secondary to Right Middle and Lower Lobe Pneumonia and Suspected Empyema * afebrile >36hrs, WBCs wnl, BCs neg 5 days * encourage out of bed to chair and incentive spirometer use * Infectious Disease (Dr. Spring) on case * Cardiothoracic Surgery Dr. Meza: Chest tube placed 04/18/18 (R) anterior chest tube 45cc x24hrs serosanguinous fluid (R) posterior chest tube 55cc x24hrs serosanguinous fluid daily CXRs maintain suction * Post operative note April 24, 2018. Patient underwent a right thoracotomy, decortication of the right lung, drainage of the right lung infection/exudates, right middle inferior lobe biopsy performed, right-sided chest tube placement x2. Specimen noted portion of the middle lobe of the right lobe, portion of the lower lobe on right lung, right lung fluid/hemat gabriel. * 04/24/18 Tissue Culture: No growth after 24 hours * 04/24/18 Pleural Fluid: no growth after 24 hours * 04/24/18 Lung: No growth after 24 hours * 04/24/18 Lung: No growth after 24 hours * Leukocytosis, fever, pneumonia/empyema * CT chest from Apr 15, 2018. Cardiomegaly. Trace pericardial effusion. Coronary artery calcifications. Extensive consolidation throughout the right hemithorax with relative sparing of the right lung apex. Small loculated right-sided pleural effusion measuring approximately 2.1 cm in maximum depth superinfection is not excluded. Mild left basal bibasilar atelectasis. Left hemithorax. Otherwise grossly clear. Limited visualization of the upper abdomen reveals hepatomegaly. Diffuse hepatic steatosis with 2 more focal hypodense regions favored to represent focal fatty infiltration. * CT chest from Apr 17 was suboptimal. No evidence of central pulmonary embolus . Interval worsening of airspace consolidation at the right lung contains foci of low-attenuation possible fluid collection since prior study interval worsening of the right-sided multiple likely request for sacral pleural effusion. * CT chest from 04/20/2018 noted for decreased right pleural effusion. Right chest tube. Extensive right lower lobe atelectasis with right middle lobe and left lower lobe segmental atelectasis. Small left pleural effusion. No pneumothorax. Endotracheal tube and nasogastric tube noted. * Chest xray (04/25/18): postop changes are slowly resolving at the right hemith orax as post decorticulation previously. Tube and catheters unchanged in position with right basilar atectasis favored over infiltrate. Mild right pleural effusion is noted including the minor fissue. Limited left perihilar opacity density noted. * CT chest 05/04/18: suture material along right lateral chest wall. small right hydropneumothorax. right sided cehst tube. scattered right mid to lower lobe infiltrate or atelectasis. 2.6x7.7x5.6cm right chest wall collection - consider hematoma or abscess. right 6th and 7th rib fractures. subtle hypodensidty in anterior right hepatic lobe, indeterminate. * Azithromycin and Rocephin were discontinued on 04/15/18 * Zosyn 3.375 gm IV Q6H (04/15/18 through 04/16/18) * Tamiflu 75 mg PO 2x/day (04/14/18 through 04/19/18) * Gentamicin 80mg IV Q12H (04/21/18 through 04/25/18) * Micafungin 100mg IV Q24H (04/23/18 through 04/27/18) * Clindamycin 900 mg IV Q8H (04/16/18 through 04/27/18) * Amikacin 500mg IVPB Q12H (04/25/18 through 04/30/18) Current IV Abx: * Vancomycin 1 gm IV Q12H (04/15/18) last trough 5, f/u friday 10pm * Meropenem 1 gm IV Q8H (04/16/18) * Blood Culture 04/13/18: is negative to date * Blood culture 04/21/18: negative. * Urine culture 04/21/18: negative. * Pleural fluid (04/18/18): no anaerobes isolated. Fungal culture--prelim * Pleural fluid (04/18/18): no growth. * Bronchial Washings: 04/19/18: Normal saphrophytic john paul, fungal culture-prelim * Myocbacterial Culture and IGs Neg * Procalcitonin: 1.64 * s/p OR (04/24/18)-->bx of lung taken, removal of purulent material from right lung. Anterior and posterior chest tubes. 1 units given in OR of PRBC; 2 units post RBC Acute Respiratory Failure secondary to Pneumonia/Empyema * Patient was intubated and placed on vent on evening 04/15/18 after he started to have DTs * Patient was on Vent from admission through 04/28/18 * While intubated was given Fentanyl, Versed, Propofol, Precdex Alcohol Withdrawal DTs * MVI tab PO daily * Vitamin B1 tab PO daily * Folic Acid 1 tab PO daily IT band distal bursitis -continue with with ibuprofen -topical lidoderm Bilateral Perinephric Stranding (resolved) As seen on CT Abdomen/Pelvis * UA shows NEGATIVE Nitrate, Ketones, and LE * Repeat urine cultures are negative * While intubated did have roman but is now using urinal Alcohol Abuse * Patient revealed 04/14/18 that he drank shots and multiple beers twice a week but told overnight team at time of admission that he did this 5x per week. * Last drink was this past Friday04/10/18 as per patient * MVI tab PO daily * Vitamin B1 tab PO daily * Folic Acid 1 tab PO daily Electrolyte abnormalities (resolved) Tachycardia * Postoperative 2 from cardiothoracic surgery Elevated LFTs and Hepatic Parenchymal Disease (as seen CT Abdomen) Likely secondary to suspected alcohol abuse Improved * Hepatitis Panel negative * HIV negative * UDS negative * On CT scan noted hepatomegaly Constipation resolved Bilateral Cephalic Vein Thrombosises * Patient was on therapeutic lovenox 100mg subq12 Hr held prior to OR 04/23/18 * As these are NOT DVTS, therapeutic lovenox was discontinued * Ibuprofen 600mg q8 PO patrick Prophylaxis * DVT risk score of 2 based upon Age and diagnosis of Sepsis: Lovenox 40mg subqdaily Bilateral SCDs * As patient was intubated 04/15/18, Protonix 40 mg IV 1x/day was started * Jevity was given via OGT while he was intubated * Lactobacillus PO 2x/day * Therapuetic Lovenox 100 mg SC Q12H held 04/23/18. * TLC placed on 04/22/18 Dispo: Pt making remarkable recovery. possible d/c soon pending chest tube rem ovals and effusion resolution Patient seen and case reviewed with Dr. Mg <Daylin Mg V - Last Filed: 05/08/18 15:41> Objective - Vital Signs/Intake and Output Vital Signs (last 24 hours): Temp Pulse Resp BP Pulse Ox 98.4 F 98 H 20 105/66 95 05/08/18 08:26 05/08/18 08:26 05/08/18 08:26 05/08/18 08:26 05/08/18 08:26 Intake and Output: 05/08/18 05/08/18 06:59 18:59 Intake Total 1300 Output Total 880 1860 Balance -880 -560 - Medications Medications: Current Medications Albuterol/Ipratropium (Duoneb 3 Mg/0.5 Mg (3 Ml) Ud) 3 ml INH RQ6 [facility] Last Admin: 05/08/18 13:30 Dose: 3 ml Docusate Sodium (Colace) 100 mg PO TID [facility] Last Admin: 05/08/18 13:13 Dose: 100 mg Enoxaparin Sodium (Lovenox) 40 mg SC DAILY [facility] Last Admin: 05/08/18 09:51 Dose: 40 mg Folic Acid (Folic Acid) 1 mg PO DAILY [facility] Last Admin: 05/08/18 09:51 Dose: 1 mg Meropenem 1 gm/ Sodium (Chloride) 100 mls @ 100 mls/hr IVPB Q8H [facility]; Protocol Last Admin: 05/08/18 13:13 Dose: 100 mls/hr Vancomycin HCl 1,000 mg/ (Sodium Chloride) 250 mls @ 166.6 mls/hr IVPB Q12H [facility]; Protocol Last Admin: 05/08/18 10:25 Dose: 166.6 mls/hr Lactobacillus Acidophilus (Lactobacillus) 1 cap PO BID [facility] Last Admin: 05/08/18 10:01 Dose: 1 cap Multivitamins (Hexavitamin) 1 tab PO DAILY [facility] Last Admin: 05/08/18 09:51 Dose: 1 tab Pantoprazole Sodium (Protonix Inj) 40 mg IVP DAILY [facility] Last Admin: 05/08/18 09:52 Dose: 40 mg Sennosides (Senokot Tab) 8.6 mg PO BID PRN PRN Reason: Constipation Last Admin: 05/01/18 09:24 Dose: 8.6 mg Thiamine HCl (Vitamin B1 Tab) 100 mg PO DAILY [facility] Last Admin: 05/08/18 09:51 Dose: 100 mg Tramadol HCl (Ultram) 25 mg PO TID PRN PRN Reason: Pain, moderate (4-7) Last Admin: 05/08/18 05:44 Dose: 25 mg - Labs Labs: 05/08/18 07:06 05/08/18 07:06 PT 13.7 SECONDS (9.7-12.2) H 04/24/18 06:26 INR 1.3 04/24/18 06:26 APTT 42 SECONDS (21-34) H 04/24/18 06:26 Assessment and Plan (1) Acute respiratory failure Status: Acute (2) Aspiration pneumonia Status: Acute (3) Delirium tremens Status: Acute (4) Constipation Status: Acute (5) Empyema Status: Acute (6) Alcohol abuse Status: Acute (7) Deep vein thrombosis of upper extremity Status: Acute Attending/Attestation - Attestation I have personally seen and examined this patient.: Yes I have fully participated in the care of the patient.: Yes I have reviewed all pertinent clinical information, including history, physical exam and plan: Yes Notes (Text): This is a late computer entry for May 07, 2018. Patient seen, examined, case discussed with medical case worker. Patient seen on third floor accompanied by his in the late afternoon. Patient continues drain 2 chest tubes both anterior and posterior. But it is decreasing. We did reemphasize the patient is sitting to the chair. Postoperative management per cardiothoracic surgery. Patient still on both vancomycin and meropenem. We will follow-up pro Calcitonin to show for resolution. Suspect tachycardia secondary to pain associated to chest tubes night of postoperative thoracic surgery. Discussed with family at bedside that we are awaiting surgery to determine when tubes will be removed to determine discharge planning. patient has a bowel movement today. Assessment/Plan 1). Sepsis Secondary to Right Middle and Lower Lobe Pneumonia and Suspected Empyema * Infectious Disease (Dr. Spring) on case * Cardiothoracic Surgery Dr. Meza: Chest tube placed 04/18/18 and pleural fluid culture will have to be followed up * Post operative note April 24, 2018. Patient underwent a right thoracotomy, decortication of the right lung, drainage of the right lung infection/exudates, right middle inferior lobe biopsy performed, right-sided chest tube placement x2. Specimen noted portion of the middle lobe of the right lobe, portion of the lower lobe on right lung, right lung fluid/hematoma. * Lung Tissue Culture 04/24/18 is negative to date * Pleural Fluid Culture 04/24/18 is negative to date * Pleural Fluid Fungal Culture 04/24/18 is negative * Pleural Fluid Mycobacterium Culture 04/24/18 shows NO AFB * Criteria: Leukocytosis, fever, pneumonia/empyema * CT chest from Apr 15, 2018. Cardiomegaly. Trace pericardial effusion. Coronary artery calcifications. Extensive consolidation throughout the right hemithorax with relative sparing of the right lung apex. Small loculated right-sided pleural effusion measuring approximately 2.1 cm in maximum depth superinfection is not excluded. Mild left basal bibasilar atelectasis. Left hemithorax. Otherwise grossly clear. Limited visualization of the upper abdomen reveals hepatomegaly. Diffuse hepatic steatosis with 2 more focal hypodense regions favored to represent focal fatty infiltration. * CT chest from Apr 17 was suboptimal. No evidence of central pulmonary embolus. Interval worsening of airspace consolidation at the right lung contains foci of low-attenuation possible fluid collection since prior study interval worsening of the right-sided multiple likely request for sacral pleural effusion. * CT chest from 04/20/2018 noted for decreased right pleural effusion. Right chest tube. Extensive right lower lobe atelectasis with right middle lobe and left lower lobe segmental atelectasis. Small left pleural effusion. No pneumothorax. Endotracheal tube and nasogastric tube noted. * Chest xray (04/25/18): postop changes are slowly resolving at the right hemithorax as post decorticulation previously. Tube and catheters unchanged in position with right basilar atectasis favored over infiltrate. Mild right pleural effusion is noted including the minor fissue. Limited left perihilar opacity density noted. * CT Chest 05/04/18: suture material along the right lateral chest wall. small ri ght hydropneumothorac. Right sided chest tube. Scattered right mid to lower lobe infiltrate or atecltasis. 2.3X7.7X5.6cm right chest wall collection. right 6th and 7th rib fractures. * Azithromycin and Rocephin were discontinued on 04/15/18 * Zosyn 3.375 gm IV Q6H (04/15/18 through 04/16/18) * Tamiflu 75 mg PO 2x/day (04/14/18 through 04/19/18) * Gentamicin 80mg IV Q12H (04/21/18 through 04/25/18) * Micafungin 100mg IV Q24H (04/23/18 through 04/27/18) * Clindamycin 900 mg IV Q8H (04/16/18 through 04/27/18) * Amikacin 500mg IVPB Q12H (04/25/18 through 04/30/18) Current IV Abx: * Vancomycin 1.25 gm IV Q12H (04/15/18) dose adjusted to Vancomycin 1500gm IV Q12H (active since 04/21/18); changed to vancomycin 1 gram IV Q12H (evening of 05/03/18) * Meropenem 1 gm IV Q8H (04/16/18) 2). Acute Respiratory Failure secondary to Pneumonia/Empyema Assessment/Plan * Patient was intubated and placed on vent on evening 04/15/18 after he started to have DTs * Patient was on Vent from admission through 04/28/18 * Patient is extubated and stabilized from the ICU to the general medical floor. 3). Alcohol Withdrawal DTs Assessment/Plan * MVI tab PO daily * Vitamin B1 tab PO daily * Folic Acid 1 tab PO daily * Social work: alcohol anonymous 4). Bilateral Perinephric Stranding (resolved) As seen on CT Abdomen/Pelvis * UA shows NEGATIVE Nitrate, Ketones, and LE * Repeat urine cultures are negative * While intubated did have roman but is now using urinal 5). Alcohol Abuse * Patient revealed 04/14/18 that he drank shots and multiple beers twice a week but told overnight team at time of admission that he did this 5x per week. * Last drink was this past Friday04/10/18 as per patient * MVI tab PO daily * Vitamin B1 tab PO daily * Folic Acid 1 tab PO daily 6). Hyponatremia (resolved) * Likely SIADH * TSH and T4 are normal * Morning Cortisol normal * Triglycerides normal * Urine Osm was high * Urine Na was 35 7). Tachycardia * continue to monitor * possible secondary to pain recent cardiothoracic surgery * Surgeon recommends against therapuetic lovenox in regards to prior cephalic vein thrombosis; patient is on scheduled Motrin for treatment of cephalic vein thrombosis 8). Elevated LFTs and Hepatic Parenchymal Disease (as seen CT Abdomen) Likely secondary to suspected alcohol abuse * Hepatitis Panel negative * HIV negative * UDS negative * On CT scan noted hepatomegaly * Normalized 9). Hypokalemia * monitor and replete 10). Hypomagnesemia * monitor and replete 11). Constipation (resolved) * continue to monitor 12) Bilateral Cephalic Vein Thrombosises * Patient was on therapeutic lovenox 100mg subq12 Hr held prior to OR 04/23/18 * As these are NOT DVTS, therapeutic lovenox was discontinued * Motrin 400mg PO6H changed from PRN for fever to scheduled for treatment of superficial vein thrombosis. 13). Prophylaxis * DVT risk score of 2 based upon Age and diagnosis of Sepsis: Lovenox 40mg subqdaily Bilateral SCDs * Extubated * Jevity was given via OGT while he was intubated * Lactobacillus PO 2x/day * Lovenox 40mg subdaily * TLC placed on 04/22/18 * Reconsult PT/OT Updated: 05/04/18: resident has spoken with radiology advised against for MRI for ruling out DVT; recommends for specialized CT scan by IR if necessary. I have d/c MRIs. There is no tachycardia, no appreciable edema. CT surgery has ordered for CT chest today; f/u. PT/OT reordered since patient is transferred out from ICU. Vancomycin trough ordered for 12PM tomorrow. 05/05/18: Reemphasize patient bed to chair. Postoperative management in regards to chest tubes per chronic cardiothoracic surgery. Continue antibiotic treatment. 05/06/18: seen and evaluated by cardiothoracic surgeon. patient seen with at bedside.
[2018-05-07 07:18] LABS: BASO # 0.1 K/uL (0.0-0.2); BASO % 1.2 % (0.0-2.0); EOS # 0.2 K/uL (0.0-0.7); EOS % 3.1 % (0.0-4.0); HEMOGLOBIN 10.4 g/dL (12.0-18.0); LYMPH % 13.3 % (20.0-40.0); MEAN CELL VOLUME 88.9 fL (80.0-94.0); MEAN CORPUSCULAR HEMOGLOBIN 29.6 pg (27.0-31.0); MEAN CORPUSCULAR HGB CONC 33.2 g/dL (33.0-37.0); MEAN PLATELET VOLUME 8.1 fL (7.2-11.7); MONO # 1.1 K/uL (0.0-0.8); MONO % 14.6 % (0.0-10.0); NEUT # 5.2 K/uL (1.8-7.0); NEUT % 67.8 % (50.0-75.0); RBC 3.52 Mil/uL (4.40-5.90); RED CELL DISTRIBUTION WIDTH 13.8 % (11.5-14.5); WHITE BLOOD COUNT 7.7 K/uL (4.8-10.8)
[2018-05-07 07:41] LABS: ALB/GLOB RATIO 0.7 (1.0-2.1); ALT/SGPT 35 U/L (21-72); AST/SGOT 32 U/L (17-59); BLOOD UREA NITROGEN 7 mg/dL (9-20); CALCIUM 8.6 mg/dl (8.6-10.4); GFR NON-AFRICAN AMERICAN > 60
--- NOTE | 2018-05-07 08:27 | CP.PCM.PN ---
Subjective - Date & Time of Evaluation Date of Evaluation: 05/07/18 Time of Evaluation: 08:25 - Subjective Subjective: SURGERY NOTE FOR DR. HERNANDEZ 43M seen and examined at bedside. Patient asymptomatic. no chest pain, no shortness of breath. Objective - Vital Signs/Intake and Output Vital Signs (last 24 hours): Temp Pulse Resp BP Pulse Ox 98.3 F 102 H 20 109/73 95 05/07/18 07:59 05/07/18 07:59 05/07/18 07:59 05/07/18 07:59 05/07/18 07:59 Intake and Output: 05/07/18 05/07/18 06:59 18:59 Intake Total 1000 Output Total 927 Balance 73 - Medications Medications: Current Medications Albuterol/Ipratropium (Duoneb 3 Mg/0.5 Mg (3 Ml) Ud) 3 ml INH RQ6 [facility] Last Admin: 05/07/18 02:00 Dose: Not Given Docusate Sodium (Colace) 100 mg PO TID [facility] Last Admin: 05/06/18 18:00 Dose: 100 mg Enoxaparin Sodium (Lovenox) 40 mg SC DAILY [facility] Last Admin: 05/06/18 09:20 Dose: 40 mg Folic Acid (Folic Acid) 1 mg PO DAILY [facility] Last Admin: 05/06/18 09:21 Dose: 1 mg Meropenem 1 gm/ Sodium (Chloride) 100 mls @ 100 mls/hr IVPB Q8H [facility]; Protocol Last Admin: 05/07/18 05:29 Dose: 100 mls/hr Lactobacillus Acidophilus (Lactobacillus) 1 cap PO BID [facility] Last Admin: 05/06/18 18:00 Dose: 1 cap Morphine Sulfate (Morphine) 0.5 mg IVP Q6H PRN PRN Reason: Pain, severe (8-10) Multivitamins (Hexavitamin) 1 tab PO DAILY [facility] Last Admin: 05/06/18 09:22 Dose: 1 tab Pantoprazole Sodium (Protonix Inj) 40 mg IVP DAILY [facility] Last Admin: 05/06/18 09:20 Dose: 40 mg Sennosides (Senokot Tab) 8.6 mg PO BID PRN PRN Reason: Constipation Last Admin: 05/01/18 09:24 Dose: 8.6 mg Thiamine HCl (Vitamin B1 Tab) 100 mg PO DAILY [facility] Last Admin: 05/06/18 09:21 Dose: 100 mg Tramadol HCl (Ultram) 25 mg PO TID PRN PRN Reason: Pain, moderate (4-7) Last Admin: 05/06/18 00:54 Dose: 25 mg - Labs Labs: 05/07/18 07:04 05/07/18 07:04 PT 13.7 SECONDS (9.7-12.2) H 04/24/18 06:26 INR 1.3 04/24/18 06:26 APTT 42 SECONDS (21-34) H 04/24/18 06:26 - Constitutional Appears: Non-toxic, No Acute Distress - Respiratory Exam Respiratory Exam: Clear to Ausculation Bilateral, NORMAL BREATHING PATTERN Additional comments: right chest tubes in place anterior - 50cc in 8 hours posterior - 130cc in 24 hrs both serosanguinous No air leak - Cardiovascular Exam Cardiovascular Exam: REGULAR RHYTHM, +S1, +S2 - GI/Abdominal Exam GI & Abdominal Exam: Soft. absent: Distended, Firm, Guarding, Rigid, Tenderness, Rebound - Neurological Exam Neurological Exam: Alert, Awake Assessment and Plan - Assessment and Plan (Free Text) Assessment: 43M s/p right thoracotomy with decortication and drainage of empyema, placement of 2 chest tubes POD#13 Plan: - Daily chest x-ray - continue wall suction Further recs discuss with Dr. Susana Hernandez, PGY3
--- NOTE | 2018-05-07 08:45 | RAD ---
Date of service: 05/07/2018 HISTORY: chest tubes COMPARISON: 05/06/2018 chest x-ray. Chest with contrast report 05/04/2018 noted FINDINGS: LUNGS: Clear left lung. The small aerated lung segment mid to upper lung zone appears similar Inferior lateral to this is likely combined asymmetrically elevated right hemidiaphragm with right pleural effusion/pleural fluid collection thickening and right basal compressive atelectasis overseas with or without infiltrate here). Right hemithoracic appearance is similar. CT is referenced a right hydro pneumothorax. PLEURA: Right pleural effusions/collection-as referenced above-similar in extent. The CT referenced small right hydropneumothorax-pneumothorax component of it is difficult to appreciate on this chest x-ray. Two right chest tube tips project over right lung apex.-their appearance is similar. Trace pleural thickening and/or fluid in minor fissure as before. CARDIOVASCULAR: No aortic atherosclerotic calcification present. Borderline cardiomegaly No significant appearing pulmonary venous congestion. OSSEOUS STRUCTURES: Patient's previously referenced right sided rib fractures are not appreciated on this less sensitive exam. VISUALIZED UPPER ABDOMEN: Normal. OTHER FINDINGS: Right lateral chest soft tissue skin ilene-similar IMPRESSION: Mixed pathologies in the right hemithorax- similar in appearance. Appearance compatible with a right pleural effusion/loculated pleural fluid collection-as referenced above. No pleural reflection of unknown right pneumothorax appreciated. Two right chest tube tips project over right lung [id number]
[2018-05-07] MEDS: Enoxaparin 40 mg Syringe SC SCH (10:01)
[2018-05-07] MEDS: Lactobacillus Acidophilus 500 MU Cap PO SCH ×2 (10:01→17:13)
[2018-05-07] MEDS: Multiple Vitamins Tab PO SCH (10:30)
[2018-05-07] MEDS: Tramadol 25 mg PO PRN (16:00)
[2018-05-08] MEDS: Albuterol-Ipratrop 3 mg / 0.5 (3 ml) UD INH SCH ×4 (01:30→19:53)
[2018-05-08] MEDS: Meropenem 1 GM in Sodium Chloride 0.9% 100 ML IVPB SCH ×3 (05:08→21:01)
[2018-05-08] MEDS: Tramadol 25 mg PO PRN ×2 (05:44→16:30)
--- NOTE | 2018-05-08 07:10 | CP.PCM.PN ---
<Jose Maria Owens - Last Filed: 05/08/18 14:11> Subjective - Date & Time of Evaluation Date of Evaluation: 05/08/18 Time of Evaluation: 07:10 - Subjective Subjective: PGY-1 Medicine Progress Note for Dr. Mg Patient seen and examined at bedside this AM, resting comfortably in no acute distress. Anterolateral chest tube removed by surgical team, posterior tube currently on suction. No fevers/chills, abdominal pain, sob, cough, n/v/d/c. 12 pt ROS reviewed and otherwise negative. Objective - Vital Signs/Intake and Output Vital Signs (last 24 hours): Temp Pulse Resp BP Pulse Ox 99 F 110 H 20 109/71 96 05/08/18 00:00 05/08/18 00:00 05/08/18 00:00 05/08/18 00:00 05/08/18 00:00 Intake and Output: 05/08/18 05/08/18 06:59 18:59 Output Total 880 Balance -880 - Medications Medications: Current Medications Albuterol/Ipratropium (Duoneb 3 Mg/0.5 Mg (3 Ml) Ud) 3 ml INH RQ6 [facility] Last Admin: 05/08/18 01:30 Dose: Not Given Docusate Sodium (Colace) 100 mg PO TID [facility] Last Admin: 05/07/18 17:09 Dose: 100 mg Enoxaparin Sodium (Lovenox) 40 mg SC DAILY [facility] Last Admin: 05/07/18 10:01 Dose: 40 mg Folic Acid (Folic Acid) 1 mg PO DAILY [facility] Last Admin: 05/07/18 10:01 Dose: 1 mg Meropenem 1 gm/ Sodium (Chloride) 100 mls @ 100 mls/hr IVPB Q8H [facility]; Protocol Last Admin: 05/08/18 05:08 Dose: 100 mls/hr Vancomycin HCl 1,000 mg/ (Sodium Chloride) 250 mls @ 166.6 mls/hr IVPB Q12H [facility]; Protocol Last Admin: 05/07/18 22:05 Dose: 166.6 mls/hr Lactobacillus Acidophilus (Lactobacillus) 1 cap PO BID [facility] Last Admin: 05/07/18 17:13 Dose: 1 cap Multivitamins (Hexavitamin) 1 tab PO DAILY [facility] Last Admin: 05/07/18 10:30 Dose: 1 tab Pantoprazole Sodium (Protonix Inj) 40 mg IVP DAILY [facility] Last Admin: 05/07/18 10:02 Dose: 40 mg Sennosides (Senokot Tab) 8.6 mg PO BID PRN PRN Reason: Constipation Last Admin: 05/01/18 09:24 Dose: 8.6 mg Thiamine HCl (Vitamin B1 Tab) 100 mg PO DAILY [facility] Last Admin: 05/07/18 10:02 Dose: 100 mg Tramadol HCl (Ultram) 25 mg PO TID PRN PRN Reason: Pain, moderate (4-7) Last Admin: 05/08/18 05:44 Dose: 25 mg - Labs Labs: 05/07/18 07:04 05/07/18 07:04 PT 13.7 SECONDS (9.7-12.2) H 04/24/18 06:26 INR 1.3 04/24/18 06:26 APTT 42 SECONDS (21-34) H 04/24/18 06:26 - Constitutional Appears: Non-toxic, No Acute Distress - Head Exam Head Exam: ATRAUMATIC, NORMAL INSPECTION, NORMOCEPHALIC - Eye Exam Eye Exam: Normal appearance - ENT Exam ENT Exam: Mucous Membranes Moist - Neck Exam Neck Exam: Full ROM, Normal Inspection - Respiratory Exam Respiratory Exam: NORMAL BREATHING PATTERN. absent: Accessory Muscle Use, Respiratory Distress Additional comments: Posterior chest tube in place with 90 cc drainage, serosanguinous No air leak - Cardiovascular Exam Cardiovascular Exam: REGULAR RHYTHM, +S1, +S2 - GI/Abdominal Exam GI & Abdominal Exam: Soft, Normal Bowel Sounds. absent: Distended, Firm, Guarding, Rigid, Tenderness, Rebound - Extremities Exam Extremities Exam: Normal Capillary Refill, Normal Inspection. absent: Calf Tenderness, Pedal Edema - Back Exam Back Exam: NORMAL INSPECTION - Neurological Exam Neurological Exam: Alert, Awake, Oriented x3 - Psychiatric Exam Psychiatric exam: Normal Affect, Normal Mood - Skin Skin Exam: Dry, Intact, Normal Color, Warm Assessment and Plan - Assessment and Plan (Free Text) Assessment: 43M s/p right thoracotomy with decortication and drainage of empyema, placement of 2 chest tubes POD#15, anteriolateral chest tube currently removed Plan: Sepsis Secondary to Right Middle and Lower Lobe Pneumonia and Suspected Empyema * afebrile, no leukocytosis, BCxs negative * encourage out of bed to chair and incentive spirometer use * Infectious Disease (Dr. Spring) on case * Cardiothoracic Surgery Dr. Meza: Chest tube placed 04/18/18 (R) anterior chest tube removed (05/08) (R) posterior chest tube w/ 90 cc serosanguinous drainage daily CXRs maintain suction * Post operative note April 24, 2018. Patient underwent a right thoracotomy, decortication of the right lung, drainage of the right lung infection/exudates, right middle inferior lobe biopsy performed, right-sided chest tube placement x2. Specimen noted portion of the middle lobe of the right lobe, portion of the lower lobe on right lung, right lung fluid/hematoma. * 04/24/18 Tissue Culture: No growth after 24 hours * 04/24/18 Pleural Fluid: no growth after 24 hours * 04/24/18 Lung: No growth after 24 hours * 04/24/18 Lung: No growth after 24 hours * Leukocytosis, fever, pneumonia/empyema * CT chest from Apr 15, 2018. Cardiomegaly. Trace pericardial effusion. Coronary artery calcifications. Extensive consolidation throughout the right hemithorax with relative sparing of the right lung apex. Small loculated right-sided pleural effusion measuring approximately 2.1 cm in maximum depth superinfection is not excluded. Mild left basal bibasilar atelectasis. Left hemithorax. Otherwise grossly clear. Limited visualization of the upper abdomen reveals hepatomegaly. Diffuse hepatic steatosis with 2 more focal hypodense regions favored to represent focal fatty infiltration. * CT chest from Apr 17 was suboptimal. No evidence of central pulmonary embolus. Interval worsening of airspace consolidation at the right lung contains foci of low-attenuation possible fluid collection since prior study interval worsening of the right-sided multiple likely request for sacral pleural effusion. * CT chest from 04/20/2018 noted for decreased right pleural effusion. Right chest tube. Extensive right lower lobe atelectasis with right middle lobe and left lower lobe segmental atelectasis. Small left pleural effusion. No pneumothorax. Endotracheal tube and nasogastric tube noted. * Chest xray (04/25/18): postop changes are slowly resolving at the right hemithorax as post decorticulation previously. Tube and catheters unchanged in position with right basilar atectasis favored over infiltrate. Mild right pleural effusion is noted including the minor fissue. Limited left perihilar opacity density noted. * CT chest 05/04/18: suture material along right lateral chest wall. small right hydropneumothorax. right sided cehst tube. scattered right mid to lower lobe infiltrate or atelectasis. 2.6x7.7x5.6cm right chest wall collection - consider hematoma or abscess. right 6th and 7th rib fractures. subtle hypodensidty in anterior right hepatic lobe, indeterminate. * Azithromycin and Rocephin were discontinued on 04/15/18 * Zosyn 3.375 gm IV Q6H (04/15/18 through 04/16/18) * Tamiflu 75 mg PO 2x/day (04/14/18 through 04/19/18) * Gentamicin 80mg IV Q12H (04/21/18 through 04/25/18) * Micafungin 100mg IV Q24H (04/23/18 through 04/27/18) * Clindamycin 900 mg IV Q8H (04/16/18 through 04/27/18) * Amikacin 500mg IVPB Q12H (04/25/18 through 04/30/18) Current IV Abx: * Vancomycin 1 gm IV Q12H (04/15/18) last trough 5, f/u friday 10pm * Meropenem 1 gm IV Q8H (04/16/18) * Blood Culture 04/13/18: is negative to date * Blood culture 04/21/18: negative. * Urine culture 04/21/18: negative. * Pleural fluid (04/18/18): no anaerobes isolated. Fungal culture--prelim * Pleural fluid (04/18/18): no growth. * Bronchial Washings: 04/19/18: Normal saphrophytic john paul, fungal culture-prelim * Myocbacterial Culture and IGs Neg * Procalcitonin: 1.64 * s/p OR (04/24/18)-->bx of lung taken, removal of purulent material from right lung. Anterior and posterior chest tubes. 1 units given in OR of PRBC; 2 units post RBC Acute Respiratory Failure secondary to Pneumonia/Empyema * Patient was intubated and placed on vent on evening 04/15/18 after he started to have DTs * Patient was on Vent from admission through 04/28/18 * While intubated was given Fentanyl, Versed, Propofol, Precdex IT band distal bursitis -continue with with ibuprofen -topical lidoderm Bilateral Perinephric Stranding--resolved As seen on CT Abdomen/Pelvis * UA shows NEGATIVE Nitrate, Ketones, and LE * Repeat urine cultures are negative * While intubated did have roman but is now using urinal Alcohol Abuse * Patient revealed 04/14/18 that he drank shots and multiple beers twice a week but told overnight team at time of admission that he did this 5x per week. * Last drink was this past Friday04/10/18 as per patient * MVI tab PO daily * Vitamin B1 tab PO daily * Folic Acid 1 tab PO daily Elevated LFTs and Hepatic Parenchymal Disease (as seen CT Abdomen) Likely secondary to suspected alcohol abuse Improved * Hepatitis Panel negative * HIV negative * UDS negative * On CT scan noted hepatomegaly Bilateral Cephalic Vein Thromboses * Patient was on therapeutic lovenox 100mg subq12 Hr--held prior to OR 04/23/18 * As these are NOT DVTs, therapeutic lovenox was discontinued * Ibuprofen 600mg q8 PO patrick Ppx, Diet, Disposition * DVT risk score of 2 based upon Age and diagnosis of Sepsis: Lovenox 40mg subqdaily Bilateral SCDs * As patient was intubated 04/15/18, Protonix 40 mg IV 1x/day was started * Jevity was given via OGT while he was intubated * Lactobacillus PO 2x/day * Therapuetic Lovenox 100 mg SC Q12H held 04/23/18. * TLC placed on 04/22/[address] Haritha Owens DO, PGY-1 <Daylin Mg V - Last Filed: 05/08/18 15:47> Objective - Vital Signs/Intake and Output Vital Signs (last 24 hours): Temp Pulse Resp BP Pulse Ox 98.4 F 98 H 20 105/66 95 05/08/18 08:26 05/08/18 08:26 05/08/18 08:26 05/08/18 08:26 05/08/18 08:26 Intake and Output: 05/08/18 05/08/18 06:59 18:59 Intake Total 1300 Output Total 880 1860 Balance -880 -560 - Medications Medications: Current Medications Albuterol/Ipratropium (Duoneb 3 Mg/0.5 Mg (3 Ml) Ud) 3 ml INH RQ6 [facility] Last Admin: 05/08/18 13:30 Dose: 3 ml Docusate Sodium (Colace) 100 mg PO TID [facility] Last Admin: 05/08/18 13:13 Dose: 100 mg Enoxaparin Sodium (Lovenox) 40 mg SC DAILY [facility] Last Admin: 05/08/18 09:51 Dose: 40 mg Folic Acid (Folic Acid) 1 mg PO DAILY [facility] Last Admin: 05/08/18 09:51 Dose: 1 mg Meropenem 1 gm/ Sodium (Chloride) 100 mls @ 100 mls/hr IVPB Q8H [facility]; Protocol Last Admin: 05/08/18 13:13 Dose: 100 mls/hr Vancomycin HCl 1,000 mg/ (Sodium Chloride) 250 mls @ 166.6 mls/hr IVPB Q12H [facility]; Protocol Last Admin: 05/08/18 10:25 Dose: 166.6 mls/hr Lactobacillus Acidophilus (Lactobacillus) 1 cap PO BID [facility] Last Admin: 05/08/18 10:01 Dose: 1 cap Multivitamins (Hexavitamin) 1 tab PO DAILY [facility] Last Admin: 05/08/18 09:51 Dose: 1 tab Pantoprazole Sodium (Protonix Inj) 40 mg IVP DAILY [facility] Last Admin: 05/08/18 09:52 Dose: 40 mg Sennosides (Senokot Tab) 8.6 mg PO BID PRN PRN Reason: Constipation Last Admin: 05/01/18 09:24 Dose: 8.6 mg Thiamine HCl (Vitamin B1 Tab) 100 mg PO DAILY [facility] Last Admin: 05/08/18 09:51 Dose: 100 mg Tramadol HCl (Ultram) 25 mg PO TID PRN PRN Reason: Pain, moderate (4-7) Last Admin: 05/08/18 05:44 Dose: 25 mg - Labs Labs: 05/08/18 07:06 05/08/18 07:06 PT 13.7 SECONDS (9.7-12.2) H 04/24/18 06:26 INR 1.3 04/24/18 06:26 APTT 42 SECONDS (21-34) H 04/24/18 06:26 Assessment and Plan (1) Acute respiratory failure Status: Acute (2) Aspiration pneumonia Status: Acute (3) Delirium tremens Status: Acute (4) Constipation Status: Acute (5) Empyema Status: Acute (6) Alcohol abuse Status: Acute (7) Deep vein thrombosis of upper extremity Status: Acute Attending/Attestation - Attestation I have personally seen and examined this patient.: Yes I have fully participated in the care of the patient.: Yes I have reviewed all pertinent clinical information, including history, physical exam and plan: Yes Notes (Text): Patient seen, examined, case discussed with medical editor. Surgery has removed 1 of the 2 chest tubes today. Follow chest xray does not show pneumothorax. posterior tube continues to drain. Follow up procalcitonin has normalized. patient is on IV abx. Suspect tachycardia secondary to pain associated to chest tubes night of postoperative thoracic surgery. Assessment/Plan 1). Sepsis Secondary to Right Middle and Lower Lobe Pneumonia and Suspected Empyema * Infectious Disease (Dr. Spring) on case * Cardiothoracic Surgery Dr. Meza: Chest tube placed 04/18/18 * Post operative note April 24, 2018. Patient underwent a right thoracotomy, decortication of the right lung, drainage of the right lung infection/exudates, right middle inferior lobe biopsy performed, right-sided chest tube placement x2. Specimen noted portion of the middle lobe of the right lobe, portion of the lower lobe on right lung, right lung flui d/hematoma. * Lung Tissue Culture 04/24/18 is negative to date * Pleural Fluid Culture 04/24/18 is negative to date * Pleural Fluid Fungal Culture 04/24/18 is negative * Pleural Fluid Mycobacterium Culture 04/24/18 shows NO AFB * Chest tube 1 removed 05/08/18 (anterior-lateral): Chest tube 2 remains. * Criteria: Leukocytosis, fever, pneumonia/empyema * CT chest from Apr 15, 2018. Cardiomegaly. Trace pericardial effusion. Coronary artery calcifications. Extensive consolidation throughout the right hemithorax with relative sparing of the right lung apex. Small loculated right-sided pleural effusion measuring approximately 2.1 cm in maximum depth superinfection is not excluded. Mild left basal bibasilar atelectasis. Left hemithorax. Otherwise grossly clear. Limited visualization of the upper abdomen reveals hepatomegaly. Diffuse hepatic steatosis with 2 more focal hypodense regions favored to represent focal fatty infiltration. * CT chest from Apr 17 was suboptimal. No evidence of central pulmonary embolus. Interval worsening of airspace consolidation at the right lung contains foci of low-attenuation possible fluid collection since prior study interval worsening of the right-sided multiple likely request for sacral pleural effusion. * CT chest from 04/20/2018 noted for decreased right pleural effusion. Right chest tube. Extensive right lower lobe atelectasis with right middle lobe and left lower lobe segmental atelectasis. Small left pleural effusion. No pneumothorax. Endotracheal tube and nasogastric tube noted. * Chest xray (04/25/18): postop changes are slowly resolving at the right hemithorax as post decorticulation previously. Tube and catheters unchanged in position with right basilar atectasis favored over infiltrate. Mild right pleural effusion is noted including the minor fissue. Limited left perihilar opacity density noted. * CT Chest 05/04/18: suture material along the right lateral chest wall. small right hydropneumothorac. Right sided chest tube. Scattered right mid to lower lobe infiltrate or atecltasis. 2.3X7.7X5.6cm right chest wall collection. right 6th and 7th rib fractures. * Azithromycin and Rocephin were discontinued on 04/15/18 * Zosyn 3.375 gm IV Q6H (04/15/18 through 04/16/18) * Tamiflu 75 mg PO 2x/day (04/14/18 through 04/19/18) * Gentamicin 80mg IV Q12H (04/21/18 through 04/25/18) * Micafungin 100mg IV Q24H (04/23/18 through 04/27/18) * Clindamycin 900 mg IV Q8H (04/16/18 through 04/27/18) * Amikacin 500mg IVPB Q12H (04/25/18 through 04/30/18) Current IV Abx: * Vancomycin 1.25 gm IV Q12H (04/15/18) dose adjusted to Vancomycin 1500gm IV Q12H (active since 04/21/18); changed to vancomycin 1 gram IV Q12H (evening of 05/03/18) * Meropenem 1 gm IV Q8H (04/16/18) 2). Acute Respiratory Failure secondary to Pneumonia/Empyema Assessment/Plan * Patient was intubated and placed on vent on evening 04/15/18 after he started to have DTs * Patient was on Vent from admission through 04/28/18 * Patient is extubated and stabilized from the ICU to the general medical floor. 3). Alcohol Withdrawal DTs Assessment/Plan * MVI tab PO daily * Vitamin B1 tab PO daily * Folic Acid 1 tab PO daily * Social work: alcohol anonymous 4). Bilateral Perinephric Stranding (resolved) As seen on CT Abdomen/Pelvis * UA shows NEGATIVE Nitrate, Ketones, and LE * Repeat urine cultures are negative * While intubated did have roman but is now using urinal 5). Alcohol Abuse * Patient revealed 04/14/18 that he drank shots and multiple beers twice a week but told overnight team at time of admission that he did this 5x per week. * Last drink was this past Friday04/10/18 as per patient * MVI tab PO daily * Vitamin B1 tab PO daily * Folic Acid 1 tab PO daily 6). Hyponatremia (resolved) * Likely SIADH * TSH and T4 are normal * Morning Cortisol normal * Triglycerides normal * Urine Osm was high * Urine Na was 35 7). Tachycardia * continue to monitor * possible secondary to pain recent cardiothoracic surgery * Surgeon recommends against therapuetic lovenox in regards to prior cephalic vein thrombosis; patient is on scheduled Motrin for treatment of cephalic vein thrombosis 8). Elevated LFTs and Hepatic Parenchymal Disease (as seen CT Abdomen) Likely secondary to suspected alcohol abuse * Hepatitis Panel negative * HIV negative * UDS negative * On CT scan noted hepatomegaly * Normalized 9). Hypokalemia * monitor and replete 10). Hypomagnesemia * monitor and replete 11). Constipation (resolved) * continue to monitor 12) Bilateral Cephalic Vein Thrombosises * Patient was on therapeutic lovenox 100mg subq12 Hr held prior to OR 04/23/18 * As these are NOT DVTS, therapeutic lovenox was discontinued * Motrin 400mg PO6H changed from PRN for fever to scheduled for treatment of superficial vein thrombosis. 13). Prophylaxis * DVT risk score of 2 based upon Age and diagnosis of Sepsis: Lovenox 40mg franz bqdaily Bilateral SCDs * Extubated * Jevity was given via OGT while he was intubated * Lactobacillus PO 2x/day * Lovenox 40mg subdaily * TLC placed on 04/22/18 * Reconsult PT/OT Updated: 05/04/18: resident has spoken with radiology advised against for MRI for ruling out DVT; recommends for specialized CT scan by IR if necessary. I have d/c MRIs. There is no tachycardia, no appreciable edema. CT surgery has ordered for CT chest today; f/u. PT/OT reordered since patient is transferred out from ICU. Vancomycin trough ordered for 12PM tomorrow. 05/05/18: Reemphasize patient bed to chair. Postoperative management in regards to chest tubes per chronic cardiothoracic surgery. Continue antibiotic treatmen t. 05/06/18: seen and evaluated by cardiothoracic surgeon. patient seen with at bedside. 05/08/18: chest tube anterior is removed no pneumothorax on follow-up chest xray
[2018-05-08 07:16] LABS: BASO # 0.1 K/uL (0.0-0.2); BASO % 1.3 % (0.0-2.0); EOS # 0.1 K/uL (0.0-0.7); EOS % 1.6 % (0.0-4.0); HEMOGLOBIN 10.4 g/dL (12.0-18.0); LYMPH # 1.2 K/uL (1.0-4.3); LYMPH % 14.8 % (20.0-40.0); MEAN CELL VOLUME 89.1 fL (80.0-94.0); MEAN CORPUSCULAR HEMOGLOBIN 29.1 pg (27.0-31.0); MEAN CORPUSCULAR HGB CONC 32.6 g/dL (33.0-37.0); MEAN PLATELET VOLUME 8.1 fL (7.2-11.7); MONO # 1.2 K/uL (0.0-0.8); MONO % 13.9 % (0.0-10.0); NEUT # 5.7 K/uL (1.8-7.0); NEUT % 68.4 % (50.0-75.0); RBC 3.58 Mil/uL (4.40-5.90); WHITE BLOOD COUNT 8.3 K/uL (4.8-10.8)
[2018-05-08 07:29] LABS: ALB/GLOB RATIO 0.7 (1.0-2.1); ALBUMIN 3.1 g/dL (3.5-5.0); ALT/SGPT 33 U/L (21-72); AST/SGOT 34 U/L (17-59); BLOOD UREA NITROGEN 7 mg/dL (9-20); CALCIUM 8.8 mg/dl (8.6-10.4); GFR NON-AFRICAN AMERICAN > 60
--- NOTE | 2018-05-08 08:02 | CP.PCM.PN ---
Subjective - Date & Time of Evaluation Date of Evaluation: 05/08/18 Time of Evaluation: 06:55 - Subjective Subjective: SURGERY PROGRESS NOTE FOR DR. HERNANDEZ Patient seen and examined at bedside. He is resting in bed, in no acute distress. Patient is asymptomatic. Denies fever, chills, chest pain, and shortness of breath. Objective - Vital Signs/Intake and Output Vital Signs (last 24 hours): Temp Pulse Resp BP Pulse Ox 99 F 110 H 20 109/71 96 05/08/18 00:00 05/08/18 00:00 05/08/18 00:00 05/08/18 00:00 05/08/18 00:00 Intake and Output: 05/08/18 05/08/18 06:59 18:59 Intake Total 350 Output Total 880 1510 Balance -880 -1160 - Medications Medications: Current Medications Albuterol/Ipratropium (Duoneb 3 Mg/0.5 Mg (3 Ml) Ud) 3 ml INH RQ6 [facility] Last Admin: 05/08/18 01:30 Dose: Not Given Docusate Sodium (Colace) 100 mg PO TID [facility] Last Admin: 05/07/18 17:09 Dose: 100 mg Enoxaparin Sodium (Lovenox) 40 mg SC DAILY [facility] Last Admin: 05/07/18 10:01 Dose: 40 mg Folic Acid (Folic Acid) 1 mg PO DAILY [facility] Last Admin: 05/07/18 10:01 Dose: 1 mg Meropenem 1 gm/ Sodium (Chloride) 100 mls @ 100 mls/hr IVPB Q8H [facility]; Protocol Last Admin: 05/08/18 05:08 Dose: 100 mls/hr Vancomycin HCl 1,000 mg/ (Sodium Chloride) 250 mls @ 166.6 mls/hr IVPB Q12H [facility]; Protocol Last Admin: 05/07/18 22:05 Dose: 166.6 mls/hr Lactobacillus Acidophilus (Lactobacillus) 1 cap PO BID [facility] Last Admin: 05/07/18 17:13 Dose: 1 cap Multivitamins (Hexavitamin) 1 tab PO DAILY [facility] Last Admin: 05/07/18 10:30 Dose: 1 tab Pantoprazole Sodium (Protonix Inj) 40 mg IVP DAILY [facility] Last Admin: 05/07/18 10:02 Dose: 40 mg Sennosides (Senokot Tab) 8.6 mg PO BID PRN PRN Reason: Constipation Last Admin: 05/01/18 09:24 Dose: 8.6 mg Thiamine HCl (Vitamin B1 Tab) 100 mg PO DAILY [facility] Last Admin: 05/07/18 10:02 Dose: 100 mg Tramadol HCl (Ultram) 25 mg PO TID PRN PRN Reason: Pain, moderate (4-7) Last Admin: 05/08/18 05:44 Dose: 25 mg - Labs Labs: 05/08/18 07:06 05/08/18 07:06 PT 13.7 SECONDS (9.7-12.2) H 04/24/18 06:26 INR 1.3 04/24/18 06:26 APTT 42 SECONDS (21-34) H 04/24/18 06:26 - Constitutional Appears: Non-toxic, No Acute Distress - Head Exam Head Exam: ATRAUMATIC, NORMOCEPHALIC - Eye Exam Eye Exam: Normal appearance - ENT Exam ENT Exam: Mucous Membranes Moist - Neck Exam Neck Exam: Full ROM - Respiratory Exam Respiratory Exam: NORMAL BREATHING PATTERN. absent: Accessory Muscle Use Additional comments: No respiratory distress - Cardiovascular Exam Additional comments: right chest tubes in place- dressings c/d/i anterior - 45cc in 24 hours, serosanguinous posterior - 130cc in 24 hrs, serosanguinous No air leak - Extremities Exam Extremities Exam: Full ROM - Neurological Exam Neurological Exam: Alert, Awake, Oriented x3 - Psychiatric Exam Psychiatric exam: Normal Affect - Skin Skin Exam: Dry, Normal Color, Warm Assessment and Plan - Assessment and Plan (Free Text) Assessment: 43M s/p right thoracotomy with decortication and drainage of empyema, placement of 2 chest tubes POD#14 Plan: - Daily chest x-ray - continue chest tube on suction Further recs as per Dr. Susana Villavicencio, PGY-1
[2018-05-08] MEDS: Enoxaparin 40 mg Syringe SC SCH (09:51)
[2018-05-08] MEDS: Multiple Vitamins Tab PO SCH (09:51)
[2018-05-08] MEDS: Lactobacillus Acidophilus 500 MU Cap PO SCH ×2 (10:01→17:50)
--- NOTE | 2018-05-08 11:22 | RAD ---
HISTORY: chest tubes COMPARISON: Chest x-ray performed 05/07/18 TECHNIQUE: Chest, one view. FINDINGS: LUNGS: 2 right-sided chest tubes. Right-sided pleural effusion, possibly partially loculated. Right basilar atelectasis/pneumonia. No appreciable pneumothorax. CARDIOVASCULAR: Partially imaged heart size appears top normal. OSSEOUS STRUCTURES: Degenerative changes. VISUALIZED UPPER ABDOMEN: Elevation of the right hemidiaphragm. OTHER FINDINGS: Skin ilene, right chest wall. IMPRESSION: No significant interval change appreciated.
--- NOTE | 2018-05-08 12:45 | RAD ---
Date of service: 05/08/2018 HISTORY: anterior chest tube removed COMPARISON: 05/08/2018 at 7:27 FINDINGS: LUNGS: Low lung volume on the right. Again seen is multifocal atelectasis and confluent airspace disease in the right lower lobe. The left lung is well inflated and clear. PLEURA: Interval removal of 1 chest tube terminating in the medial apex. There is stable position of a solitary chest tube terminating in the apex. Redemonstration of small loculated right pleural effusion. No pneumothorax. CARDIOVASCULAR: The heart is normal in size. No aortic atherosclerotic calcifications present. OSSEOUS STRUCTURES: Within normal limits for the patient's age. VISUALIZED UPPER ABDOMEN: Normal. OTHER FINDINGS: Lateral skin ilene are again identified.. IMPRESSION: Interval removal of the medial chest tube. Stable position of solitary chest tube terminating in the lung apex. No significant interval change in small loculated right pleural effusion and multifocal atelectasis in the right lung with more confluent disease in the right lung base which may represent atelectasis or pneumonia. No pneumothorax.
[2018-05-09] MEDS: Albuterol-Ipratrop 3 mg / 0.5 (3 ml) UD INH SCH ×4 (01:19→19:33)
[2018-05-09] MEDS: Tramadol 25 mg PO PRN ×3 (03:42→17:00)
[2018-05-09] MEDS: Meropenem 1 GM in Sodium Chloride 0.9% 100 ML IVPB SCH ×3 (04:16→21:56)
[2018-05-09 06:33] LABS: BASO # 0.1 K/uL (0.0-0.2); BASO % 1.1 % (0.0-2.0); EOS # 0.2 K/uL (0.0-0.7); EOS % 1.8 % (0.0-4.0); HEMOGLOBIN 10.4 g/dL (12.0-18.0); LYMPH # 1.3 K/uL (1.0-4.3); LYMPH % 14.8 % (20.0-40.0); MEAN CELL VOLUME 88.9 fL (80.0-94.0); MEAN CORPUSCULAR HEMOGLOBIN 28.6 pg (27.0-31.0); MEAN CORPUSCULAR HGB CONC 32.2 g/dL (33.0-37.0); MONO % 10.9 % (0.0-10.0); NEUT # 6.3 K/uL (1.8-7.0); NEUT % 71.4 % (50.0-75.0); RBC 3.64 Mil/uL (4.40-5.90); RED CELL DISTRIBUTION WIDTH 13.8 % (11.5-14.5); WHITE BLOOD COUNT 8.9 K/uL (4.8-10.8)
[2018-05-09 06:45] LABS: ALB/GLOB RATIO 0.7 (1.0-2.1); ALBUMIN 3.1 g/dL (3.5-5.0); ALT/SGPT 29 U/L (21-72); AST/SGOT 34 U/L (17-59); BLOOD UREA NITROGEN 8 mg/dL (9-20); CALCIUM 8.8 mg/dl (8.6-10.4); GFR NON-AFRICAN AMERICAN > 60
--- NOTE | 2018-05-09 07:42 | CP.PCM.PN ---
<Daylin Mg V - Last Filed: 05/09/18 19:43> Objective - Vital Signs/Intake and Output Vital Signs (last 24 hours): Temp Pulse Resp BP Pulse Ox 98.6 F 111 H 20 106/66 96 05/09/18 16:00 05/09/18 16:00 05/09/18 16:00 05/09/18 16:00 05/09/18 16:00 Intake and Output: 05/09/18 05/10/18 18:59 06:59 Intake Total 1550 Output Total 1270 Balance 280 - Medications Medications: Current Medications Albuterol/Ipratropium (Duoneb 3 Mg/0.5 Mg (3 Ml) Ud) 3 ml INH RQ6 [facility] Last Admin: 05/09/18 19:33 Dose: 3 ml Docusate Sodium (Colace) 100 mg PO TID [facility] Last Admin: 05/09/18 17:25 Dose: 100 mg Enoxaparin Sodium (Lovenox) 40 mg SC DAILY [facility] Last Admin: 05/09/18 09:55 Dose: 40 mg Folic Acid (Folic Acid) 1 mg PO DAILY [facility] Last Admin: 05/09/18 09:55 Dose: 1 mg Meropenem 1 gm/ Sodium (Chloride) 100 mls @ 100 mls/hr IVPB Q8H [facility]; Protocol Last Admin: 05/09/18 12:37 Dose: 100 mls/hr Vancomycin HCl 1,000 mg/ (Sodium Chloride) 250 mls @ 166.6 mls/hr IVPB Q12H [facility]; Protocol Last Admin: 05/09/18 09:56 Dose: 166.6 mls/hr Lactobacillus Acidophilus (Lactobacillus) 1 cap PO BID [facility] Last Admin: 05/09/18 17:24 Dose: 1 cap Multivitamins (Hexavitamin) 1 tab PO DAILY [facility] Last Admin: 05/09/18 09:55 Dose: 1 tab Pantoprazole Sodium (Protonix Inj) 40 mg IVP DAILY [facility] Last Admin: 05/09/18 09:56 Dose: 40 mg Sennosides (Senokot Tab) 8.6 mg PO BID PRN PRN Reason: Constipation Last Admin: 05/01/18 09:24 Dose: 8.6 mg Thiamine HCl (Vitamin B1 Tab) 100 mg PO DAILY [facility] Last Admin: 05/09/18 09:55 Dose: 100 mg Tramadol HCl (Ultram) 25 mg PO TID PRN PRN Reason: Pain, moderate (4-7) Last Admin: 05/09/18 17:00 Dose: 25 mg - Labs Labs: 05/09/18 06:20 05/09/18 06:20 PT 13.7 SECONDS (9.7-12.2) H 04/24/18 06:26 INR 1.3 04/24/18 06:26 APTT 42 SECONDS (21-34) H 04/24/18 06:26 Assessment and Plan (1) Acute respiratory failure Status: Acute (2) Aspiration pneumonia Status: Acute (3) Delirium tremens Status: Acute (4) Constipation Status: Acute (5) Empyema Status: Acute (6) Alcohol abuse Status: Acute (7) Deep vein thrombosis of upper extremity Status: Acute Attending/Attestation - Attestation I have personally seen and examined this patient.: Yes I have fully participated in the care of the patient.: Yes I have reviewed all pertinent clinical information, including history, physical exam and plan: Yes Notes (Text): Patient seen, examined, case discussed with medical receptionist assistant. patient seen with at bedside. Patient noted right knee pain and noted muscle tightness over the IT band on exam. patient has right chest tube. Postoperative management per cardiothoracic surgeon. Chest xray (05/09/18); overall no significant interval changes compared to the prior study. Patient is on aspirin which should help as anti-inflammatory for arthritic knee pain. IV abx per ID. If patient remains in house on Friday, ID will switch IV to PO Abx. Assessment/Plan 1). Sepsis Secondary to Right Middle and Lower Lobe Pneumonia and Suspected Empyema * Infectious Disease (Dr. Spring) on case * Cardiothoracic Surgery Dr. Meza: Chest tube placed 04/18/18 * Post operative note April 24, 2018. Patient underwent a right thoracotomy, decortication of the right lung, drainage of the right lung infection/exudates, right middle inferior lobe biopsy performed, right-sided chest tube placement x2. Specimen noted portion of the middle lobe of the right lobe, portion of the lower lobe on right lung, right lung fluid/hematoma. * Lung Tissue Culture 04/24/18 is negative to date * Pleural Fluid Culture 04/24/18 is negative to date * Pleural Fluid Fungal Culture 04/24/18 is negative * Pleural Fluid Mycobacterium Culture 04/24/18 shows NO AFB * Chest tube 1 removed 05/08/18 (anterior-lateral): Chest tube #2 remains. * Procalcitonin: 1.64--> <0.05 * Criteria: Leukocytosis, fever, pneumonia/empyema * CT chest from Apr 15, 2018. Cardiomegaly. Trace pericardial effusion. Coronary artery calcifications. Extensive consolidation throughout the right hemithorax with relative sparing of the right lung apex. Small loculated right-sided pleural effusion measuring approximately 2.1 cm in maximum depth superinfection is not excluded. Mild left basal bibasilar atelectasis. Left hemithorax. Otherwise grossly clear. Limited visualization of the upper abdomen reveals hepatomegaly. Diffuse hepatic steatosis with 2 more focal hypodense regions favored to represent focal fatty infiltration. * CT chest from Apr 17 was suboptimal. No evidence of central pulmonary embolus . Interval worsening of airspace consolidation at the right lung contains foci of low-attenuation possible fluid collection since prior study interval worsening of the right-sided multiple likely request for sacral pleural effusion. * CT chest from 04/20/2018 noted for decreased right pleural effusion. Right chest tube. Extensive right lower lobe atelectasis with right middle lobe and left lower lobe segmental atelectasis. Small left pleural effusion. No pneumothorax. Endotracheal tube and nasogastric tube noted. * Chest xray (04/25/18): postop changes are slowly resolving at the right hemith orax as post decorticulation previously. Tube and catheters unchanged in position with right basilar atectasis favored over infiltrate. Mild right pleural effusion is noted including the minor fissue. Limited left perihilar opacity density noted. * CT Chest 05/04/18: suture material along the right lateral chest wall. small right hydropneumothorac. Right sided chest tube. Scattered right mid to lower lobe infiltrate or atecltasis. 2.3X7.7X5.6cm right chest wall collection. right 6th and 7th rib fractures. * Azithromycin and Rocephin were discontinued on 04/15/18 * Zosyn 3.375 gm IV Q6H (04/15/18 through 04/16/18) * Tamiflu 75 mg PO 2x/day (04/14/18 through 04/19/18) * Gentamicin 80mg IV Q12H (04/21/18 through 04/25/18) * Micafungin 100mg IV Q24H (04/23/18 through 04/27/18) * Clindamycin 900 mg IV Q8H (04/16/18 through 04/27/18) * Amikacin 500mg IVPB Q12H (04/25/18 through 04/30/18) Current IV Abx: * Vancomycin 1.25 gm IV Q12H (04/15/18) dose adjusted to Vancomycin 1500gm IV Q12H (active since 04/21/18); changed to vancomycin 1 gram IV Q12H (evening of 05/03/18) * Meropenem 1 gm IV Q8H (04/16/18) 2). Acute Respiratory Failure secondary to Pneumonia/Empyema Assessment/Plan * Patient was intubated and placed on vent on evening 04/15/18 after he started to have DTs * Patient was on Vent from admission through 04/28/18 * Patient is extubated and stabilized from the ICU to the general medical floor. 3). Alcohol Withdrawal DTs Assessment/Plan * MVI tab PO daily * Vitamin B1 tab PO daily * Folic Acid 1 tab PO daily * Social work: alcohol anonymous 4). Bilateral Perinephric Stranding (resolved) As seen on CT Abdomen/Pelvis * UA shows NEGATIVE Nitrate, Ketones, and LE * Repeat urine cultures are negative * While intubated did have roman but is now using urinal 5). Alcohol Abuse * Patient revealed 04/14/18 that he drank shots and multiple beers twice a week but told overnight team at time of admission that he did this 5x per week. * Last drink was this past Friday04/10/18 as per patient * MVI tab PO daily * Vitamin B1 tab PO daily * Folic Acid 1 tab PO daily 6). Hyponatremia (resolved) * Likely SIADH * TSH and T4 are normal * Morning Cortisol normal * Triglycerides normal * Urine Osm was high * Urine Na was 35 7). Tachycardia * continue to monitor * possible secondary to pain recent cardiothoracic surgery * Surgeon recommends against therapeutic lovenox in regards to prior cephalic vein thrombosis; patient is on scheduled Motrin for treatment of cephalic vein thrombosis 8). Elevated LFTs and Hepatic Parenchymal Disease (as seen CT Abdomen) Likely secondary to suspected alcohol abuse * Hepatitis Panel negative * HIV negative * UDS negative * On CT scan noted hepatomegaly * Normalized 9). Hypokalemia * monitor and replete 10).Hypomagnesemia * monitor and replete 11). Constipation (resolved) * continue to monitor 12) Bilateral Cephalic Vein Thrombosises * Patient was on therapeutic lovenox 100mg subq12 Hr held prior to OR 04/23/18 * As these are NOT DVTS, therapeutic lovenox was discontinued * Motrin 400mg PO6H changed from PRN for fever to scheduled for treatment of superficial vein thrombosis. 13). Prophylaxis * DVT risk score of 2 based upon Age and diagnosis of Sepsis: Lovenox 40mg subqdaily Bilateral SCDs * Extubated * Lactobacillus PO 2x/day * Lovenox 40mg subdaily * TLC placed on 04/22/18 * PT/OT Disposition: chest tube management per cardiothoracic surgery. Patient is on IV abx to cover for empyema secondary to aspiration pneumonia. <Campbell Harding - Last Filed: 05/09/18 20:12> Subjective - Date & Time of Evaluation Date of Evaluation: 05/09/18 Time of Evaluation: 08:00 - Subjective Subjective: PGY1 Medicine progress note for Dr. Mg Pt was seen and examined at bedside. He reports improvement of cough and sob. He is complaining of bilateral knee pain and some discomfort from the chest tube area. He denies fever, chills, chest pain, sob, abdominal pain, n/v/d, hematochezia, melena. Objective - Vital Signs/Intake and Output Vital Signs (last 24 hours): Temp Pulse Resp BP Pulse Ox 98 F 106 H 20 106/70 94 L 05/09/18 00:00 05/09/18 00:00 05/09/18 00:00 05/09/18 00:00 05/09/18 00:00 Intake and Output: 05/09/18 05/09/18 06:59 18:59 Intake Total 850 Output Total 15 Balance 835 - Medications Medications: Current Medications Albuterol/Ipratropium (Duoneb 3 Mg/0.5 Mg (3 Ml) Ud) 3 ml INH RQ6 [facility] Last Admin: 05/09/18 01:19 Dose: Not Given Docusate Sodium (Colace) 100 mg PO TID [facility] Last Admin: 05/08/18 17:50 Dose: 100 mg Enoxaparin Sodium (Lovenox) 40 mg SC DAILY [facility] Last Admin: 05/08/18 09:51 Dose: 40 mg Folic Acid (Folic Acid) 1 mg PO DAILY [facility] Last Admin: 05/08/18 09:51 Dose: 1 mg Meropenem 1 gm/ Sodium (Chloride) 100 mls @ 100 mls/hr IVPB Q8H [facility]; Protocol Last Admin: 05/09/18 04:16 Dose: 100 mls/hr Vancomycin HCl 1,000 mg/ (Sodium Chloride) 250 mls @ 166.6 mls/hr IVPB Q12H [facility]; Protocol Last Admin: 05/08/18 22:35 Dose: 166.6 mls/hr Lactobacillus Acidophilus (Lactobacillus) 1 cap PO BID [facility] Last Admin: 05/08/18 17:50 Dose: 1 cap Multivitamins (Hexavitamin) 1 tab PO DAILY [facility] Last Admin: 05/08/18 09:51 Dose: 1 tab Pantoprazole Sodium (Protonix Inj) 40 mg IVP DAILY [facility] Last Admin: 05/08/18 09:52 Dose: 40 mg Sennosides (Senokot Tab) 8.6 mg PO BID PRN PRN Reason: Constipation Last Admin: 05/01/18 09:24 Dose: 8.6 mg Thiamine HCl (Vitamin B1 Tab) 100 mg PO DAILY [facility] Last Admin: 05/08/18 09:51 Dose: 100 mg Tramadol HCl (Ultram) 25 mg PO TID PRN PRN Reason: Pain, moderate (4-7) Last Admin: 05/09/18 03:42 Dose: 25 mg - Labs Labs: 05/09/18 06:20 05/09/18 06:20 PT 13.7 SECONDS (9.7-12.2) H 04/24/18 06:26 INR 1.3 04/24/18 06:26 APTT 42 SECONDS (21-34) H 04/24/18 06:26 - Constitutional Appears: Non-toxic, No Acute Distress - Head Exam Head Exam: ATRAUMATIC, NORMAL INSPECTION - Eye Exam Eye Exam: EOMI, Normal appearance - ENT Exam ENT Exam: Mucous Membranes Moist - Neck Exam Neck Exam: Full ROM - Respiratory Exam Respiratory Exam: Chest Wall Tenderness (to the right, near chest tube insertion site. area is clean dry, no signs of infection of bleeding/hematoma), Decreased Breath Sounds (on the right), Rhonchi (on the right), NORMAL BREATHING PATTERN. absent: Wheezes, Respiratory Distress Additional comments: Posterior chest tube in place with serosanguinous drainage No leak noted - Cardiovascular Exam Cardiovascular Exam: Tachycardia, REGULAR RHYTHM, +S1, +S2 - GI/Abdominal Exam GI & Abdominal Exam: Soft, Normal Bowel Sounds. absent: Guarding, Rigid, Tenderness - Extremities Exam Extremities Exam: Normal Capillary Refill, Normal Inspection, Tenderness (mild bilateral knee tenderness, hypertonic IT bands bilaterally). absent: Calf Tenderness, Full ROM (limited extension of knees bilaterally), Joint Swelling, Pedal Edema - Neurological Exam Neurological Exam: Alert - Psychiatric Exam Psychiatric exam: Normal Affect, Normal Mood - Skin Skin Exam: Dry, Normal Color, Warm
[2018-05-09] MEDS: Enoxaparin 40 mg Syringe SC SCH (09:55)
[2018-05-09] MEDS: Multiple Vitamins Tab PO SCH (09:55)
[2018-05-09] MEDS: Lactobacillus Acidophilus 500 MU Cap PO SCH ×2 (09:56→17:24)
--- NOTE | 2018-05-09 17:42 | RAD ---
Date of service: 05/09/2018 HISTORY: chest tubes COMPARISON: Comparison is made with 05/08/2018 FINDINGS: LUNGS: No significant interval changes in the lungs noted since the previous exam. Partial atelectasis of the right lower lung is again noted. PLEURA: Postsurgical changes and right pleural effusion again noted in the right chest. CARDIOVASCULAR: No aortic atherosclerotic calcification present. Normal cardiac size. No pulmonary vascular congestion. OSSEOUS STRUCTURES: No significant abnormalities. VISUALIZED UPPER ABDOMEN: Normal. OTHER FINDINGS: None. IMPRESSION: Overall no significant interval changes compared to the prior study.
--- NOTE | 2018-05-09 21:18 | CP.PCM.PN ---
Subjective - Date & Time of Evaluation Date of Evaluation: 05/09/18 Time of Evaluation: 13:35 - Subjective Subjective: dictated Objective - Vital Signs/Intake and Output Vital Signs (last 24 hours): Temp Pulse Resp BP Pulse Ox 98.6 F 111 H 20 106/66 96 05/09/18 16:00 05/09/18 16:00 05/09/18 16:00 05/09/18 16:00 05/09/18 16:00 Intake and Output: 05/09/18 05/10/18 18:59 06:59 Intake Total 1550 Output Total 1270 Balance 280 - Medications Medications: Current Medications Albuterol/Ipratropium (Duoneb 3 Mg/0.5 Mg (3 Ml) Ud) 3 ml INH RQ6 [facility] Last Admin: 05/09/18 19:33 Dose: 3 ml Docusate Sodium (Colace) 100 mg PO TID [facility] Last Admin: 05/09/18 17:25 Dose: 100 mg Enoxaparin Sodium (Lovenox) 40 mg SC DAILY [facility] Last Admin: 05/09/18 09:55 Dose: 40 mg Folic Acid (Folic Acid) 1 mg PO DAILY [facility] Last Admin: 05/09/18 09:55 Dose: 1 mg Meropenem 1 gm/ Sodium (Chloride) 100 mls @ 100 mls/hr IVPB Q8H [facility]; Protocol Last Admin: 05/09/18 12:37 Dose: 100 mls/hr Vancomycin HCl 1,000 mg/ (Sodium Chloride) 250 mls @ 166.6 mls/hr IVPB Q12H [facility]; Protocol Last Admin: 05/09/18 09:56 Dose: 166.6 mls/hr Lactobacillus Acidophilus (Lactobacillus) 1 cap PO BID [facility] Last Admin: 05/09/18 17:24 Dose: 1 cap Multivitamins (Hexavitamin) 1 tab PO DAILY [facility] Last Admin: 05/09/18 09:55 Dose: 1 tab Pantoprazole Sodium (Protonix Inj) 40 mg IVP DAILY [facility] Last Admin: 05/09/18 09:56 Dose: 40 mg Sennosides (Senokot Tab) 8.6 mg PO BID PRN PRN Reason: Constipation Last Admin: 05/01/18 09:24 Dose: 8.6 mg Thiamine HCl (Vitamin B1 Tab) 100 mg PO DAILY [facility] Last Admin: 05/09/18 09:55 Dose: 100 mg Tramadol HCl (Ultram) 25 mg PO TID PRN PRN Reason: Pain, moderate (4-7) Last Admin: 05/09/18 17:00 Dose: 25 mg - Labs Labs: 05/09/18 06:20 05/09/18 06:20 PT 13.7 SECONDS (9.7-12.2) H 04/24/18 06:26 INR 1.3 04/24/18 06:26 APTT 42 SECONDS (21-34) H 04/24/18 06:26
--- NOTE | 2018-05-09 22:31 | CP.PCM.PN ---
Subjective - Date & Time of Evaluation Date of Evaluation: 05/09/18 Time of Evaluation: 07:00 - Subjective Subjective: CT Surgery: Dr. eMza Pt seen and examined. No acute events overnight. States he feels well and denies complaints. Admits to pain around chest tube insertion site. Denies SOB. Denies fevers/chills. Objective - Vital Signs/Intake and Output Vital Signs (last 24 hours): Temp Pulse Resp BP Pulse Ox 98.6 F 111 H 20 106/66 96 05/09/18 16:00 05/09/18 16:00 05/09/18 16:00 05/09/18 16:00 05/09/18 16:00 Intake and Output: 05/09/18 05/10/18 18:59 06:59 Intake Total 1550 Output Total 1270 Balance 280 - Medications Medications: Current Medications Albuterol/Ipratropium (Duoneb 3 Mg/0.5 Mg (3 Ml) Ud) 3 ml INH RQ6 [facility] Last Admin: 05/09/18 19:33 Dose: 3 ml Docusate Sodium (Colace) 100 mg PO TID [facility] Last Admin: 05/09/18 17:25 Dose: 100 mg Enoxaparin Sodium (Lovenox) 40 mg SC DAILY [facility] Last Admin: 05/09/18 09:55 Dose: 40 mg Folic Acid (Folic Acid) 1 mg PO DAILY [facility] Last Admin: 05/09/18 09:55 Dose: 1 mg Meropenem 1 gm/ Sodium (Chloride) 100 mls @ 100 mls/hr IVPB Q8H [facility]; Protocol Last Admin: 05/09/18 21:56 Dose: 100 mls/hr Vancomycin HCl 1,000 mg/ (Sodium Chloride) 250 mls @ 166.6 mls/hr IVPB Q12H [facility]; Protocol Last Admin: 05/09/18 21:55 Dose: 166.6 mls/hr Lactobacillus Acidophilus (Lactobacillus) 1 cap PO BID [facility] Last Admin: 05/09/18 17:24 Dose: 1 cap Multivitamins (Hexavitamin) 1 tab PO DAILY [facility] Last Admin: 05/09/18 09:55 Dose: 1 tab Pantoprazole Sodium (Protonix Inj) 40 mg IVP DAILY [facility] Last Admin: 05/09/18 09:56 Dose: 40 mg Sennosides (Senokot Tab) 8.6 mg PO BID PRN PRN Reason: Constipation Last Admin: 05/01/18 09:24 Dose: 8.6 mg Thiamine HCl (Vitamin B1 Tab) 100 mg PO DAILY [facility] Last Admin: 05/09/18 09:55 Dose: 100 mg Tramadol HCl (Ultram) 25 mg PO TID PRN PRN Reason: Pain, moderate (4-7) Last Admin: 05/09/18 17:00 Dose: 25 mg - Labs Labs: 05/09/18 06:20 05/09/18 06:20 PT 13.7 SECONDS (9.7-12.2) H 04/24/18 06:26 INR 1.3 04/24/18 06:26 APTT 42 SECONDS (21-34) H 04/24/18 06:26 - Constitutional Appears: Well, No Acute Distress - Head Exam Head Exam: ATRAUMATIC, NORMOCEPHALIC - Eye Exam Eye Exam: Normal appearance - ENT Exam ENT Exam: Mucous Membranes Moist - Respiratory Exam Respiratory Exam: NORMAL BREATHING PATTERN Additional comments: R chest tube in place, on suction, no air leak. Dressing clean/dry/intact. 100cc/24hrs - Cardiovascular Exam Cardiovascular Exam: RRR - GI/Abdominal Exam GI & Abdominal Exam: Soft. absent: Tenderness - Neurological Exam Neurological Exam: Alert, Awake, Oriented x3 - Skin Skin Exam: Dry, Warm Assessment and Plan - Assessment and Plan (Free Text) Assessment: 43M s/p right thoracotomy with decortication and drainage of empyema, CT x 2; POD#15 Plan: - cont CT on suction - monitor output - daily CXR - d/w Dr. Susana Castro
--- NOTE | 2018-05-09 23:02 | PN ---
DATE: 05/09/2018 SUBJECTIVE: The patient was seen today. His one chest tube is out. He still has the Pleur-Evac. He denied much pain but he says there was some pain on the right side. He is not coughing much. He is clinically much improved. MEDICATIONS: He is on albuterol, Colace, he is on Lovenox, he remains on vancomycin and meropenem. He is still on antibiotics. OBJECTIVE: HEENT: Head is atraumatic, normocephalic. VITAL SIGNS: T-max is 98.6, heart rate of 111, blood pressure 106/66, respirations are 20, saturation remains 98%. Vitals are stable except for little tachycardia. LUNGS: Clear. Decreased breath sounds on right base. HEART: S1, S2 is tachy. ABDOMEN: Soft, nontender. EXTREMITIES: Have no edema. ASSESSMENT: He is alert, oriented now. He went through a respiratory failure and was on a vent at one time and was very acutely ill, had lung empyema. White count is 8.9, hemoglobin 10.4, hematocrit 32.4, platelet count is still 612, is elevated and BUN is 8, creatinine 0.6. Last chest x-ray from today shows overall no significant interval changes compared to prior study because they are doing x-ray every day. He has no significant interval change but postsurgical changes and right pleural effusion again noted in the right chest, but he seems to be comfortable. He is not having any dyspnea. PLAN: Once they pull out this chest tube, he can go home, his culture never revealed anything ,so I think safest would be to send him home on Augmentin for 10 days 875 b.i.d. and this may happen on this coming Friday if the chest tube is not draining much. Also to give him lactobacillus or acidophilus to prevent any C. diff and he needs to follow up with the Pulmonary and the cardiothoracic. My plan, I hope the team would agree with that. Renea Spring MD
[2018-05-10] MEDS: Tramadol 25 mg PO PRN ×3 (01:26→17:31)
[2018-05-10] MEDS: Meropenem 1 GM in Sodium Chloride 0.9% 100 ML IVPB SCH ×3 (04:16→21:00)
[2018-05-10 08:22] LABS: BASO # 0.1 K/uL (0.0-0.2); BASO % 0.9 % (0.0-2.0); EOS # 0.1 K/uL (0.0-0.7); EOS % 0.6 % (0.0-4.0); HEMOGLOBIN 10.7 g/dL (12.0-18.0); LYMPH # 1.5 K/uL (1.0-4.3); LYMPH % 11.6 % (20.0-40.0); MEAN CELL VOLUME 88.4 fL (80.0-94.0); MEAN CORPUSCULAR HGB CONC 32.8 g/dL (33.0-37.0); MEAN PLATELET VOLUME 8.1 fL (7.2-11.7); MONO # 1.2 K/uL (0.0-0.8); MONO % 9.1 % (0.0-10.0); NEUT # 10.2 K/uL (1.8-7.0); NEUT % 77.8 % (50.0-75.0); NRBC % 0.1 % (0.0-2.0); RBC 3.68 Mil/uL (4.40-5.90); RED CELL DISTRIBUTION WIDTH 14.2 % (11.5-14.5); WHITE BLOOD COUNT 13.1 K/uL (4.8-10.8)
[2018-05-10 08:45] LABS: ALB/GLOB RATIO 0.7 (1.0-2.1); ALBUMIN 3.3 g/dL (3.5-5.0); ALT/SGPT 28 U/L (21-72); AST/SGOT 32 U/L (17-59); BLOOD UREA NITROGEN 10 mg/dL (9-20); CALCIUM 9.1 mg/dl (8.6-10.4); GFR NON-AFRICAN AMERICAN > 60
--- NOTE | 2018-05-10 08:47 | CP.PCM.PN ---
Subjective - Date & Time of Evaluation Date of Evaluation: 05/10/18 Time of Evaluation: 08:44 - Subjective Subjective: Surgery: Dr. Meza Pt seen and examined. No acute overnight events. Pt states he feels well and denies any complaints at this time. Continues to have some pain around CT insertion site. Denies fevers/chills. Objective - Vital Signs/Intake and Output Vital Signs (last 24 hours): Temp Pulse Resp BP Pulse Ox 98.4 F 112 H 20 107/69 95 05/10/18 08:15 05/10/18 08:15 05/10/18 08:15 05/10/18 08:15 05/10/18 08:15 Intake and Output: 05/10/18 05/10/18 06:59 18:59 Intake Total 650 620 Output Total 860 1400 Balance -210 -780 - Medications Medications: Current Medications Albuterol/Ipratropium (Duoneb 3 Mg/0.5 Mg (3 Ml) Ud) 3 ml INH RQ6 [facility] Last Admin: 05/09/18 19:33 Dose: 3 ml Docusate Sodium (Colace) 100 mg PO TID [facility] Last Admin: 05/09/18 17:25 Dose: 100 mg Enoxaparin Sodium (Lovenox) 40 mg SC DAILY [facility] Last Admin: 05/09/18 09:55 Dose: 40 mg Folic Acid (Folic Acid) 1 mg PO DAILY [facility] Last Admin: 05/09/18 09:55 Dose: 1 mg Meropenem 1 gm/ Sodium (Chloride) 100 mls @ 100 mls/hr IVPB Q8H [facility]; Protocol Last Admin: 05/10/18 04:16 Dose: 100 mls/hr Vancomycin HCl 1,000 mg/ (Sodium Chloride) 250 mls @ 166.6 mls/hr IVPB Q12H [facility]; Protocol Last Admin: 05/09/18 21:55 Dose: 166.6 mls/hr Lactobacillus Acidophilus (Lactobacillus) 1 cap PO BID [facility] Last Admin: 05/09/18 17:24 Dose: 1 cap Multivitamins (Hexavitamin) 1 tab PO DAILY [facility] Last Admin: 05/09/18 09:55 Dose: 1 tab Pantoprazole Sodium (Protonix Inj) 40 mg IVP DAILY [facility] Last Admin: 05/09/18 09:56 Dose: 40 mg Sennosides (Senokot Tab) 8.6 mg PO BID PRN PRN Reason: Constipation Last Admin: 05/01/18 09:24 Dose: 8.6 mg Thiamine HCl (Vitamin B1 Tab) 100 mg PO DAILY [facility] Last Admin: 05/09/18 09:55 Dose: 100 mg Tramadol HCl (Ultram) 25 mg PO TID PRN PRN Reason: Pain, moderate (4-7) Last Admin: 05/10/18 01:26 Dose: 25 mg - Labs Labs: 05/10/18 08:05 05/09/18 06:20 PT 13.7 SECONDS (9.7-12.2) H 04/24/18 06:26 INR 1.3 04/24/18 06:26 APTT 42 SECONDS (21-34) H 04/24/18 06:26 - Constitutional Appears: Well, No Acute Distress - Head Exam Head Exam: ATRAUMATIC, NORMOCEPHALIC - Eye Exam Eye Exam: Normal appearance - ENT Exam ENT Exam: Mucous Membranes Moist - Respiratory Exam Respiratory Exam: NORMAL BREATHING PATTERN Additional comments: CT in place on R, on suction, no airleak. 100cc/24hrs, dressing clean/dry/intact - Cardiovascular Exam Cardiovascular Exam: Tachycardia - GI/Abdominal Exam GI & Abdominal Exam: Soft - Neurological Exam Neurological Exam: Alert, Awake, Oriented x3 - Skin Skin Exam: Dry, Warm Assessment and Plan - Assessment and Plan (Free Text) Assessment: 43M s/p R thoracotomy with decortication & CT x 2; POD#16 Plan: - cont to monitor CT output - plan for possible removal of CT today or tomorrow once discussed with Dr. eMza - encourage incentive spirometer - encourage ambulation Matthew
[2018-05-10] MEDS: Albuterol-Ipratrop 3 mg / 0.5 (3 ml) UD INH SCH ×3 (08:51→21:31)
[2018-05-10] MEDS: Enoxaparin 40 mg Syringe SC SCH (10:48)
[2018-05-10] MEDS: Lactobacillus Acidophilus 500 MU Cap PO SCH ×2 (10:48→17:31)
[2018-05-10] MEDS: Multiple Vitamins Tab PO SCH (10:49)
--- NOTE | 2018-05-10 13:27 | RAD ---
Date of service: 05/10/2018 HISTORY: chest tubes COMPARISON: Comparison is made with 05/09/2017 FINDINGS: LUNGS: No significant interval changes in the lungs noted since the prior study. PLEURA: Right-sided chest tube is again seen in place. Postsurgical changes are again noted in the right chest. Pleural effusion on the right side is again noted. CARDIOVASCULAR: No aortic atherosclerotic calcification present. Normal cardiac size. No pulmonary vascular congestion. OSSEOUS STRUCTURES: No significant abnormalities. VISUALIZED UPPER ABDOMEN: Normal. OTHER FINDINGS: None. IMPRESSION: No significant interval changes.
[2018-05-10] MEDS ORDERED: MethylPREDNISolone 40 mg Vial IVP STA (18:14)
--- NOTE | 2018-05-10 20:43 | CP.PCM.PN ---
Subjective - Date & Time of Evaluation Date of Evaluation: 05/10/18 Time of Evaluation: 11:00 - Subjective Subjective: PGY1 Medicine progress note for Dr. Mg Pt was seen and examined at bedside. He is complaining of right knee pain, now with swelling. He denies fever, chills, chest pain, sob, abdominal pain, n/v/d, hematochezia, melena. Objective - Vital Signs/Intake and Output Vital Signs (last 24 hours): Temp Pulse Resp BP Pulse Ox 98.9 F 115 H 20 110/61 95 05/10/18 16:00 05/10/18 16:00 05/10/18 16:00 05/10/18 16:00 05/10/18 16:00 Intake and Output: 05/10/18 05/11/18 18:59 06:59 Intake Total 1570 Output Total 1420 Balance 150 - Medications Medications: Current Medications Albuterol/Ipratropium (Duoneb 3 Mg/0.5 Mg (3 Ml) Ud) 3 ml INH RQ6 JESUS Last Admin: 05/10/18 13:50 Dose: 3 ml Docusate Sodium (Colace) 100 mg PO TID JESUS Last Admin: 05/10/18 17:31 Dose: 100 mg Folic Acid (Folic Acid) 1 mg PO DAILY JESUS Last Admin: 05/10/18 10:48 Dose: 1 mg Meropenem 1 gm/ Sodium (Chloride) 100 mls @ 100 mls/hr IVPB Q8H JESUS; Protocol Last Admin: 05/10/18 12:23 Dose: 100 mls/hr Vancomycin HCl 1,000 mg/ (Sodium Chloride) 250 mls @ 166.6 mls/hr IVPB Q12H JESUS; Protocol Last Admin: 05/10/18 10:49 Dose: 166.6 mls/hr Lactobacillus Acidophilus (Lactobacillus) 1 cap PO BID JESUS Last Admin: 05/10/18 17:31 Dose: 1 cap Multivitamins (Hexavitamin) 1 tab PO DAILY JESUS Last Admin: 05/10/18 10:49 Dose: 1 tab Pantoprazole Sodium (Protonix Inj) 40 mg IVP DAILY JESUS Last Admin: 05/10/18 10:48 Dose: 40 mg Sennosides (Senokot Tab) 8.6 mg PO BID PRN PRN Reason: Constipation Last Admin: 05/01/18 09:24 Dose: 8.6 mg Thiamine HCl (Vitamin B1 Tab) 100 mg PO DAILY JESUS Last Admin: 05/10/18 10:48 Dose: 100 mg Tramadol HCl (Ultram) 25 mg PO TID PRN PRN Reason: Pain, moderate (4-7) Last Admin: 05/10/18 17:31 Dose: 25 mg - Labs Labs: 05/10/18 08:05 05/10/18 08:05 PT 13.7 SECONDS (9.7-12.2) H 04/24/18 06:26 INR 1.3 04/24/18 06:26 APTT 42 SECONDS (21-34) H 04/24/18 06:26 - Additional Findings Additional findings: - Head Exam Head Exam: ATRAUMATIC, NORMAL INSPECTION - Eye Exam Eye Exam: EOMI, Normal appearance - ENT Exam ENT Exam: Mucous Membranes Moist - Neck Exam Neck Exam: Full ROM - Respiratory Exam Respiratory Exam: Chest Wall Tenderness (to the right, near chest tube insertion site. area is clean dry, no signs of infection of bleeding/hematoma), Decreased Breath Sounds (on the right), Rhonchi (on the right), NORMAL BREATHING PATTERN. absent: Wheezes, Respiratory Distress Additional comments: Posterior chest tube in place with serosanguinous drainage No leak noted - Cardiovascular Exam Cardiovascular Exam: Tachycardia, REGULAR RHYTHM, +S1, +S2 - GI/Abdominal Exam GI & Abdominal Exam: Soft, Normal Bowel Sounds. absent: Guarding, Rigid, Tenderness - Extremities Exam Extremities Exam: Normal Capillary Refill, Normal Inspection, Tenderness (moderate right knee tenderness with suprapatellar effusion, warm to touch). absent: Calf Tenderness, Full ROM (limited extension of knees bilaterally), Joint Swelling, Pedal Edema - Neurological Exam Neurological Exam: Alert - Psychiatric Exam Psychiatric exam: Normal Affect, Normal Mood - Skin Skin Exam: Dry, Normal Color, Warm Assessment and Plan - Assessment and Plan (Free Text) Assessment: 1). Sepsis Secondary to Right Middle and Lower Lobe Pneumonia and Suspected Em pyema * Infectious Disease (Dr. Spring) on case * Cardiothoracic Surgery Dr. Meza: Chest tube placed 04/18/18 * Post operative note April 24, 2018. Patient underwent a right thoracotomy, decortication of the right lung, drainage of the right lung infection/exudates, right middle inferior lobe biopsy performed, right-sided chest tube placement x2. Specimen noted portion of the middle lobe of the right lobe, portion of the lower lobe on right lung, right lung fluid/hematoma. * Lung Tissue Culture 04/24/18 is negative to date * Pleural Fluid Culture 04/24/18 is negative to date * Pleural Fluid Fungal Culture 04/24/18 is negative * Pleural Fluid Mycobacterium Culture 04/24/18 shows NO AFB * Chest tube 1 removed 05/08/18 (anterior-lateral): Chest tube #2 remains. * Procalcitonin: 1.64--> <0.05 * Criteria: Leukocytosis, fever, pneumonia/empyema * CT chest from Apr 15, 2018. Cardiomegaly. Trace pericardial effusion. Coronary artery calcifications. Extensive consolidation throughout the right hemithorax with relative sparing of the right lung apex. Small loculated right-sided pleural effusion measuring approximately 2.1 cm in maximum depth superinfection is not excluded. Mild left basal bibasilar atelectasis. Left hemithorax. Otherwise grossly clear. Limited visualization of the upper abdomen reveals hepatomegaly. Diffuse hepatic steatosis with 2 more focal hypodense regions favored to represent focal fatty infiltration. * CT chest from Apr 17 was suboptimal. No evidence of central pulmonary embolus. Interval worsening of airspace consolidation at the right lung contains foci of low-attenuation possible fluid collection since prior study interval worsening of the right-sided multiple likely request for sacral pleural effusion. * CT chest from 04/20/2018 noted for decreased right pleural effusion. Right chest tube. Extensive right lower lobe atelectasis with right middle lobe and left lower lobe segmental atelectasis. Small left pleural effusion. No pneumothorax. Endotracheal tube and nasogastric tube noted. * Chest xray (04/25/18): postop changes are slowly resolving at the right hemithorax as post decorticulation previously. Tube and catheters unchanged in position with right basilar atectasis favored over infiltrate. Mild right pleural effusion is noted including the minor fissue. Limited left perihilar opacity density noted. * CT Chest 05/04/18: suture material along the right lateral chest wall. small right hydropneumothorac. Right sided chest tube. Scattered right mid to lower lobe infiltrate or atelectasis. 2.3X7.7X5.6cm right chest wall collection. right 6th and 7th rib fractures. * Azithromycin and Rocephin were discontinued on 04/15/18 * Zosyn 3.375 gm IV Q6H (04/15/18 through 04/16/18) * Tamiflu 75 mg PO 2x/day (04/14/18 through 04/19/18) * Gentamicin 80mg IV Q12H (04/21/18 through 04/25/18) * Micafungin 100mg IV Q24H (04/23/18 through 04/27/18) * Clindamycin 900 mg IV Q8H (04/16/18 through 04/27/18) * Amikacin 500mg IVPB Q12H (04/25/18 through 04/30/18) Current IV Abx: * Vancomycin 1.25 gm IV Q12H (04/15/18) dose adjusted to Vancomycin 1500gm IV Q12H (active since 04/21/18); changed to vancomycin 1 gram IV Q12H (evening of 05/03/18) * Meropenem 1 gm IV Q8H (04/16/18) 2). Acute Respiratory Failure secondary to Pneumonia/Empyema Assessment/Plan * Patient was intubated and placed on vent on evening 04/15/18 after he started to have DTs * Patient was on Vent from admission through 04/28/18 * Patient is extubated and stabilized from the ICU to the general medical floor. 3). Alcohol Withdrawal DTs Assessment/Plan * MVI tab PO daily * Vitamin B1 tab PO daily * Folic Acid 1 tab PO daily * Social work: alcohol anonymous 4). Bilateral Perinephric Stranding (resolved) As seen on CT Abdomen/Pelvis * UA shows NEGATIVE Nitrate, Ketones, and LE * Repeat urine cultures are negative * While intubated did have roman but is now using urinal 5). Alcohol Abuse * Patient revealed 04/14/18 that he drank shots and multiple beers twice a week but told overnight team at time of admission that he did this 5x per week. * Last drink was this past Friday04/10/18 as per patient * MVI tab PO daily * Vitamin B1 tab PO daily * Folic Acid 1 tab PO daily 6). Hyponatremia (resolved) * Likely SIADH * TSH and T4 are normal * Morning Cortisol normal * Triglycerides normal * Urine Osm was high * Urine Na was 35 7). Tachycardia * continue to monitor * possible secondary to pain recent cardiothoracic surgery and now with right knee pain * Surgeon recommends against therapeutic lovenox in regards to prior cephalic vein thrombosis; patient is on scheduled Motrin for treatment of cephalic vein thrombosis 8). Elevated LFTs and Hepatic Parenchymal Disease (as seen CT Abdomen) Likely secondary to suspected alcohol abuse * Hepatitis Panel negative * HIV negative * UDS negative * On CT scan noted hepatomegaly * Normalized 9). Hypokalemia * monitor and replete 10).Hypomagnesemia * monitor and replete 11). Constipation (resolved) * continue to monitor 12) Bilateral Cephalic Vein Thrombosises * Patient was on therapeutic lovenox 100mg subq12 Hr held prior to OR 04/23/18 * As these are NOT DVTS, therapeutic lovenox was discontinued * Motrin 400mg PO6H changed from PRN for fever to scheduled for treatment of superficial vein thrombosis. 13) Right knee effusion * Solumedrol 40 mg IV x1 * F/u THIEN with reflex, uric acid, ESR, CRP, right knee x-ray * Orthopedics, Dr. Burton, consulted. Recommendations appreciated 14). Prophylaxis * DVT risk score of 2 based upon Age and diagnosis of Sepsis: Lovenox 40mg subqdaily Bilateral SCDs * Extubated * Lactobacillus PO 2x/day * Lovenox 40mg subdaily * TLC placed on 04/22/18 * PT/OT Disposition: chest tube management per cardiothoracic surgery. Patient is on IV abx to cover for empyema secondary to aspiration pneumonia. Pt to have xray of right knee, and orthopedic consult for effusion.
[2018-05-11] MEDS: Albuterol-Ipratrop 3 mg / 0.5 (3 ml) UD INH SCH ×4 (01:56→20:26)
[2018-05-11] MEDS: Meropenem 1 GM in Sodium Chloride 0.9% 100 ML IVPB SCH ×3 (04:03→21:10)
[2018-05-11 06:44] LABS: BASO # 0.1 K/uL (0.0-0.2); BASO % 0.7 % (0.0-2.0); HEMOGLOBIN 10.3 g/dL (12.0-18.0); LYMPH # 1.4 K/uL (1.0-4.3); LYMPH % 11.5 % (20.0-40.0); MEAN CELL VOLUME 87.8 fL (80.0-94.0); MEAN CORPUSCULAR HGB CONC 31.9 g/dL (33.0-37.0); MEAN PLATELET VOLUME 7.9 fL (7.2-11.7); MONO # 1.5 K/uL (0.0-0.8); MONO % 12.6 % (0.0-10.0); NEUT # 9.3 K/uL (1.8-7.0); NEUT % 75.2 % (50.0-75.0); RBC 3.66 Mil/uL (4.40-5.90); RED CELL DISTRIBUTION WIDTH 13.6 % (11.5-14.5); WHITE BLOOD COUNT 12.3 K/uL (4.8-10.8)
[2018-05-11 06:59] LABS: ALB/GLOB RATIO 0.8 (1.0-2.1); ALBUMIN 3.2 g/dL (3.5-5.0); ALT/SGPT 29 U/L (21-72); AST/SGOT 35 U/L (17-59); BLOOD UREA NITROGEN 11 mg/dL (9-20); CALCIUM 8.8 mg/dl (8.6-10.4); GFR NON-AFRICAN AMERICAN > 60; URIC ACID 3.7 mg/dL (3.5-8.5)
--- NOTE | 2018-05-11 07:31 | OP ---
PROCEDURE DATE: 04/24/2018 PREOPERATIVE DIAGNOSES: 1. Empyema, right chest. 2. Trapped right lung. 3. Consolidation, right lung. 4. Atelectasis, right middle and lower lobe. 5. Sepsis. 6. Respiratory failure, ventilator-dependent. POSTOPERATIVE DIAGNOSES: 1. Empyema, right chest. 2. Trapped right middle and lower lobe and posterior segment of the right upper lobe. 3. Consolidation, right lower and middle lobe. 4. Atelectasis. 5. Sepsis. 6. Respiratory failure, ventilator-dependent. PROCEDURES: 1. Right thoracotomy, exploratory. 2. Evacuation of empyema, right chest. 3. Deloculation of loculated empyema cavities. 4. Decortication. 5. Partial parietal pleurectomy. 6. Wedge resection of right middle and lower lobe. SURGEON: Andres Meza MD. ASSISTANTS: Dr. Hernandez, Delaney Pollock DO, and Juma Ojeda MS-3. ANESTHESIA: Double-lumen endotracheal general anesthesia. ANESTHESIOLOGIST: Juan Antonio Saeed DO, Josiah Haines MD, Juan Jose Murphy MD, and Christiana Dupont RN. 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 Pleural cavity was entered extrapleurally. Multiple loculated empyema cavities containing purulent thick exudate and fibrinous exudate were noted throughout her right pleural cavity. Right middle lobe and lower lobe were consistent with consolidation as well as the posterior segment of right upper lobe. These consolidations were also combined by atelectasis. Right lung was completely trapped with pleural peel. Approximately 300 mL of fibrinous exudate was evacuated. OPERATIVE PROCEDURE: The patient was taken to operating room where under satisfactory double-lumen endotracheal general anesthesia, the patient was placed for right thoracotomy and operative field was prepared and draped in a sterile fashion. Thoracic cavity was entered through a limited right lateral thoracotomy incision. However, incision had to be soon enlarged posteriorly as the access became extremely difficult. Pleural cavity was entered through fifth intercostal space after transecting and removing a 1cm segment of the sixth rib posteriorly. As the exposure became difficult, seventh rib, a segment, was removed posteriorly also. Next, extrapleural dissection was carried out and extreme care was exercised not to injure the lung parenchyma. As the extrapleural dissection was carried out initially, pleural cavity was eventually entered through approximately 1 cm long incision and then this was as starting point which was carefully extended anteriorly as well as posteriorly. In the process, fibrinous exudate was removed whenever possible as well as old hematoma. Eventually, the entire lung was freed up from the parietal pleura. Apical dissection was carried out using thoracoscopic assistance. The lung was again freed up from the diaphragm and the inferior diaphragmatic sulcus. Thoracoscope had to be used. Extreme care was exercised not to damage the diaphragm as well as inferior pulmonary vein and esophagus. Paramediastinal area was also freed up using sharp and blunt dissection. Next, decortication was carried out starting from the middle lobe and then minor fissure and to the lower lobe. This was carried out using sharp and blunt dissection, multiple application of peanuts. The specimen was sent out as permanent section. After completion of decortication of right middle lobe and lower lobe, decortication was carried out over the posterior segment of right upper lobe. Again, dissection was initially started out with a sharp knife or hot cautery, and then peel was progressively removed using blunt dissection. Major and minor fissures were carefully freed up and trapped fluid within was removed. Thick fibrinous exudate was collected in Lukens tubes; sent out for cytology and cell count, microbiology including AFB and fungus as wel as usual chemical analysis. Finally, using CardiaLen and CardiaLen universal power stapler loaded with 45-cm blue load, wedge resection of middle lobe and lower lobe were carried out in the usual manner. Finally, pleural cavity was irrigated with copious warm normal solution. After confirming satisfactory hemostasis, 32 and 28 chest tubes inserted in the usual manner anterior and posterior respectively and these were secured at the skin edge with 0-silk sutures in the usual manner. Chest wall was closed in layers, ribs with pericostal suture of #1 PDS which was inserted in a [id number] manner, muscle fascia with continuous 0-Vicryl, and deep fascia with continuous 2-0 Vicryl, subcutaneous fascia with continuous 3-0 Vicryl, and skin with skin stapler. Wound was dressed with 4 x 4 and taped in the usual manner. The patient tolerated the procedure very well and recovered, to the recovery room intubated with good vital signs. Estimated blood loss was 500 mL. The patient was given 1 unit of packed red blood cells. Sponge, needle, and instrument counts were correct. Andres Meza MD DIANDRA
--- NOTE | 2018-05-11 08:14 | CP.PCM.PN ---
<Edi Valdez - Last Filed: 05/11/18 16:27> Subjective - Date & Time of Evaluation Date of Evaluation: 05/11/18 Time of Evaluation: 08:13 - Subjective Subjective: HOSPITALIST SERVICE Pt s/e at bedside, complains of R knee swelling and pain with movement. Pt says it got worse from yesterday, feels hot . Pt denies chest pain sob fc nv Objective - Vital Signs/Intake and Output Vital Signs (last 24 hours): Temp Pulse Resp BP Pulse Ox 98 F 90 20 106/72 96 05/11/18 08:02 05/11/18 08:02 05/11/18 08:02 05/11/18 08:02 05/11/18 08:02 Intake and Output: 05/11/18 05/11/18 06:59 18:59 Intake Total 590 Output Total 10 Balance 580 - Medications Medications: Current Medications Albuterol/Ipratropium (Duoneb 3 Mg/0.5 Mg (3 Ml) Ud) 3 ml INH RQ6 [facility] Last Admin: 05/11/18 01:56 Dose: Not Given Docusate Sodium (Colace) 100 mg PO TID [facility] Last Admin: 05/10/18 17:31 Dose: 100 mg Folic Acid (Folic Acid) 1 mg PO DAILY [facility] Last Admin: 05/10/18 10:48 Dose: 1 mg Meropenem 1 gm/ Sodium (Chloride) 100 mls @ 100 mls/hr IVPB Q8H [facility]; Protocol Last Admin: 05/11/18 04:03 Dose: 100 mls/hr Vancomycin HCl 1,000 mg/ (Sodium Chloride) 250 mls @ 166.6 mls/hr IVPB Q12H [facility]; Protocol Last Admin: 05/10/18 21:54 Dose: 166.6 mls/hr Lactobacillus Acidophilus (Lactobacillus) 1 cap PO BID [facility] Last Admin: 05/10/18 17:31 Dose: 1 cap Multivitamins (Hexavitamin) 1 tab PO DAILY [facility] Last Admin: 05/10/18 10:49 Dose: 1 tab Pantoprazole Sodium (Protonix Inj) 40 mg IVP DAILY [facility] Last Admin: 05/10/18 10:48 Dose: 40 mg Sennosides (Senokot Tab) 8.6 mg PO BID PRN PRN Reason: Constipation Last Admin: 05/01/18 09:24 Dose: 8.6 mg Thiamine HCl (Vitamin B1 Tab) 100 mg PO DAILY [facility] Last Admin: 05/10/18 10:48 Dose: 100 mg Tramadol HCl (Ultram) 25 mg PO TID PRN PRN Reason: Pain, moderate (4-7) Last Admin: 05/10/18 17:31 Dose: 25 mg - Labs Labs: 05/11/18 06:24 05/11/18 06:24 PT 13.7 SECONDS (9.7-12.2) H 04/24/18 06:26 INR 1.3 04/24/18 06:26 APTT 42 SECONDS (21-34) H 04/24/18 06:26 - Additional Findings Additional findings: - Head Exam Head Exam: ATRAUMATIC, NORMAL INSPECTION - Eye Exam Eye Exam: EOMI, Normal appearance - ENT Exam ENT Exam: Mucous Membranes Moist - Neck Exam Neck Exam: Full ROM - Respiratory Exam Respiratory Exam: Chest Wall Tenderness (to the right, near chest tube insertion site. area is clean dry, no signs of infection of bleeding/hematoma), Decreased Breath Sounds (on the right), Rhonchi (on the right), NORMAL BREATHING PATTERN. absent: Wheezes, Respiratory Distress Additional comments: Posterior chest tube in place with serosanguinous drainage No leak noted - Cardiovascular Exam Cardiovascular Exam: Tachycardia, REGULAR RHYTHM, +S1, +S2 - GI/Abdominal Exam GI & Abdominal Exam: Soft, Normal Bowel Sounds. absent: Guarding, Rigid, Tenderness - Extremities Exam Extremities Exam: Normal Capillary Refill, Normal Inspection, Tenderness (moderate right knee tenderness with suprapatellar effusion, warm to touch). absent: Calf Tenderness, Full ROM (limited extension of knees bilaterally), Joint Swelling, Pedal Edema - Neurological Exam Neurological Exam: Alert - Psychiatric Exam Psychiatric exam: Normal Affect, Normal Mood - Skin Skin Exam: Dry, Normal Color, Warm Assessment and Plan - Assessment and Plan (Free Text) Assessment: 43M admitted for alcohol withdrawl, aspiration pneumonia, infective empyema s/p thoracotomy w/ decortication on 04/24 w/ Dr Meza 1). Sepsis Secondary to Right Middle and Lower Lobe Pneumonia and Suspected Empyema * Infectious Disease (Dr. Spring) on case * Cardiothoracic Surgery Dr. Meza: Chest tube placed 04/18/18 * Post operative note April 24, 2018. Patient underwent a right thoracotomy, decortication of the right lung, drainage of the right lung infection/exudates, right middle inferior lobe biopsy performed, right-sided chest tube placement x2. Specimen noted portion of the middle lobe of the right lobe, portion of the lower lobe on right lung, right lung fluid/hematoma. * Lung Tissue Culture 04/24/18 is negative to date * Pleural Fluid Culture 04/24/18 is negative to date * Pleural Fluid Fungal Culture 04/24/18 is negative * Pleural Fluid Mycobacterium Culture 04/24/18 shows NO AFB * Chest tube 1 removed 05/08/18 (anterior-lateral): Chest tube #2 remains. * Procalcitonin: 1.64--> <0.05 * Criteria: Leukocytosis, fever, pneumonia/empyema * CT chest from Apr 15, 2018. Cardiomegaly. Trace pericardial effusion. Coronary artery calcifications. Extensive consolidation throughout the right hemithorax with relative sparing of the right lung apex. Small loculated right-sided pleural effusion measuring approximately 2.1 cm in maximum depth superinfection is not excluded. Mild left basal bibasilar atelectasis. Left hemithorax. Otherwise grossly clear. Limited visualization of the upper abdomen reveals hepatomegaly. Diffuse hepatic steatosis with 2 more focal hypodense regions favored to represent focal fatty infiltration. * CT chest from Apr 17 was suboptimal. No evidence of central pulmonary embo gloria. Interval worsening of airspace consolidation at the right lung contains foci of low-attenuation possible fluid collection since prior study interval worsening of the right-sided multiple likely request for sacral pleural effusion. * CT chest from 04/20/2018 noted for decreased right pleural effusion. Right chest tube. Extensive right lower lobe atelectasis with right middle lobe and left lower lobe segmental atelectasis. Small left pleural effusion. No pneumothorax. Endotracheal tube and nasogastric tube noted. * Chest xray (04/25/18): postop changes are slowly resolving at the right hem ithorax as post decorticulation previously. Tube and catheters unchanged in position with right basilar atectasis favored over infiltrate. Mild right pleural effusion is noted including the minor fissue. Limited left perihilar opacity density noted. * CT Chest 05/04/18: suture material along the right lateral chest wall. small right hydropneumothorac. Right sided chest tube. Scattered right mid to lower lobe infiltrate or atelectasis. 2.3X7.7X5.6cm right chest wall collection. right 6th and 7th rib fractures. * CT Chest w/ contrast (05/11/18): * Azithromycin and Rocephin were discontinued on 04/15/18 * Zosyn 3.375 gm IV Q6H (04/15/18 through 04/16/18) * Tamiflu 75 mg PO 2x/day (04/14/18 through 04/19/18) * Gentamicin 80mg IV Q12H (04/21/18 through 04/25/18) * Micafungin 100mg IV Q24H (04/23/18 through 04/27/18) * Clindamycin 900 mg IV Q8H (04/16/18 through 04/27/18) * Amikacin 500mg IVPB Q12H (04/25/18 through 04/30/18) Current IV Abx: * Vancomycin 1.25 gm IV Q12H (04/15/18) dose adjusted to Vancomycin 1500gm IV Q12H (active since 04/21/18); changed to vancomycin 1 gram IV Q12H (evening of 05/03/18) * Meropenem 1 gm IV Q8H (04/16/18) 2). Acute Respiratory Failure secondary to Pneumonia/Empyema Assessment/Plan * Patient was intubated and placed on vent on evening 04/15/18 after he started to have DTs * Patient was on Vent from admission through 04/28/18 * Patient is extubated and stabilized from the ICU to the general medical floor. 3). Alcohol Withdrawal DTs Assessment/Plan * MVI tab PO daily * Vitamin B1 tab PO daily * Folic Acid 1 tab PO daily * Social work: alcohol anonymous 4). Bilateral Perinephric Stranding (resolved) As seen on CT Abdomen/Pelvis * UA shows NEGATIVE Nitrate, Ketones, and LE * Repeat urine cultures are negative * While intubated did have roman but is now using urinal 5). Alcohol Abuse * Patient revealed 04/14/18 that he drank shots and multiple beers twice a week but told overnight team at time of admission that he did this 5x per week. * Last drink was this past Friday04/10/18 as per patient * MVI tab PO daily * Vitamin B1 tab PO daily * Folic Acid 1 tab PO daily 6). Hyponatremia (resolved) * Likely SIADH * TSH and T4 are normal * Morning Cortisol normal * Triglycerides normal * Urine Osm was high * Urine Na was 35 7). Tachycardia * continue to monitor * possible secondary to pain recent cardiothoracic surgery and now with right knee pain * Surgeon recommends against therapeutic lovenox in regards to prior cephalic vein thrombosis; patient is on scheduled Motrin for treatment of cephalic vein thrombosis 8). Elevated LFTs and Hepatic Parenchymal Disease (as seen CT Abdomen) Likely secondary to suspected alcohol abuse * Hepatitis Panel negative * HIV negative * UDS negative * On CT scan noted hepatomegaly * Normalized 9). Hypokalemia * monitor and replete 10).Hypomagnesemia * monitor and replete 11). Constipation (resolved) * continue to monitor 12) Bilateral Cephalic Vein Thrombosises * Patient was on therapeutic lovenox 100mg subq12 Hr held prior to OR 04/23/18 * As these are NOT DVTS, therapeutic lovenox was discontinued * Motrin 400mg PO6H changed from PRN for fever to scheduled for treatment of superficial vein thrombosis. 13) Right knee effusion * Solumedrol 40 mg IV x1, no improvement * likely 2/2 to gout, has happened in the past * Seen with Feli Melendez PA: joint aspirated 45cc cloudy yellow aspirate removed * F/u Synovial Fluid analysis * right knee x-ray * Orthopedics, Dr. Burton, consulted. Recommendations appreciated 14). Prophylaxis * DVT risk score of 2 based upon Age and diagnosis of Sepsis: Lovenox 40mg subqdaily Bilateral SCDs * Extubated * Lactobacillus PO 2x/day * Lovenox 40mg subdaily * TLC placed on 04/22/18 * PT/OT Disposition: chest tube management per cardiothoracic surgery. Patient is on IV abx to cover for empyema secondary to aspiration pneumonia. Pt to have xray of right knee, and orthopedic consult for effusion. <Derek Shultz - Last Filed: 05/11/18 17:23> Objective - Vital Signs/Intake and Output Vital Signs (last 24 hours): Temp Pulse Resp BP Pulse Ox 98.3 F 104 H 20 107/70 96 05/11/18 16:00 05/11/18 16:00 05/11/18 16:00 05/11/18 16:00 05/11/18 16:00 Intake and Output: 05/11/18 05/11/18 06:59 18:59 Intake Total 590 1710 Output Total 10 1730 Balance 580 -20 - Medications Medications: Current Medications Albuterol/Ipratropium (Duoneb 3 Mg/0.5 Mg (3 Ml) Ud) 3 ml INH RQ6 [facility] Last Admin: 05/11/18 15:24 Dose: Not Given Docusate Sodium (Colace) 100 mg PO TID [facility] Last Admin: 05/11/18 14:54 Dose: 100 mg Folic Acid (Folic Acid) 1 mg PO DAILY [facility] Last Admin: 05/11/18 10:55 Dose: 1 mg Meropenem 1 gm/ Sodium (Chloride) 100 mls @ 100 mls/hr IVPB Q8H [facility]; Protocol Last Admin: 05/11/18 14:54 Dose: 100 mls/hr Vancomycin HCl 1,000 mg/ (Sodium Chloride) 250 mls @ 166.6 mls/hr IVPB Q12H [facility]; Protocol Last Admin: 05/11/18 11:03 Dose: 166.6 mls/hr Lactobacillus Acidophilus (Lactobacillus) 1 cap PO BID [facility] Last Admin: 05/11/18 10:55 Dose: 1 cap Multivitamins (Hexavitamin) 1 tab PO DAILY [facility] Last Admin: 05/11/18 10:56 Dose: 1 tab Pantoprazole Sodium (Protonix Inj) 40 mg IVP DAILY [facility] Last Admin: 05/11/18 10:56 Dose: 40 mg Sennosides (Senokot Tab) 8.6 mg PO BID PRN PRN Reason: Constipation Last Admin: 05/01/18 09:24 Dose: 8.6 mg Thiamine HCl (Vitamin B1 Tab) 100 mg PO DAILY [facility] Last Admin: 05/11/18 10:56 Dose: 100 mg Tramadol HCl (Ultram) 25 mg PO TID PRN PRN Reason: Pain, moderate (4-7) Last Admin: 05/10/18 17:31 Dose: 25 mg - Labs Labs: 05/11/18 06:24 05/11/18 06:24 PT 13.7 SECONDS (9.7-12.2) H 04/24/18 06:26 INR 1.3 04/24/18 06:26 APTT 42 SECONDS (21-34) H 04/24/18 06:26 Attending/Attestation - Attestation I have personally seen and examined this patient.: Yes I have fully participated in the care of the patient.: Yes I have reviewed all pertinent clinical information, including history, physical exam and plan: Yes
--- NOTE | 2018-05-11 10:13 | CP.PCM.PN ---
Subjective - Date & Time of Evaluation Date of Evaluation: 05/11/18 Time of Evaluation: 06:45 - Subjective Subjective: CT Surgery: Dr. Meza Pt seen and examined. No acute events overnight. Pt continues to improve, denies pain and states he feels ok. Denies fevers/chills, chest pain or SOB. Tolerating diet & ambulating. Objective - Vital Signs/Intake and Output Vital Signs (last 24 hours): Temp Pulse Resp BP Pulse Ox 98 F 90 20 106/72 96 05/11/18 08:02 05/11/18 08:02 05/11/18 08:02 05/11/18 08:02 05/11/18 08:02 Intake and Output: 05/11/18 05/11/18 06:59 18:59 Intake Total 590 860 Output Total 10 760 Balance 580 100 - Medications Medications: Current Medications Albuterol/Ipratropium (Duoneb 3 Mg/0.5 Mg (3 Ml) Ud) 3 ml INH RQ6 [facility] Last Admin: 05/11/18 07:30 Dose: 3 ml Docusate Sodium (Colace) 100 mg PO TID [facility] Last Admin: 05/10/18 17:31 Dose: 100 mg Folic Acid (Folic Acid) 1 mg PO DAILY [facility] Last Admin: 05/10/18 10:48 Dose: 1 mg Meropenem 1 gm/ Sodium (Chloride) 100 mls @ 100 mls/hr IVPB Q8H [facility]; Protocol Last Admin: 05/11/18 04:03 Dose: 100 mls/hr Vancomycin HCl 1,000 mg/ (Sodium Chloride) 250 mls @ 166.6 mls/hr IVPB Q12H [facility]; Protocol Last Admin: 05/10/18 21:54 Dose: 166.6 mls/hr Lactobacillus Acidophilus (Lactobacillus) 1 cap PO BID [facility] Last Admin: 05/10/18 17:31 Dose: 1 cap Multivitamins (Hexavitamin) 1 tab PO DAILY [facility] Last Admin: 05/10/18 10:49 Dose: 1 tab Pantoprazole Sodium (Protonix Inj) 40 mg IVP DAILY [facility] Last Admin: 05/10/18 10:48 Dose: 40 mg Sennosides (Senokot Tab) 8.6 mg PO BID PRN PRN Reason: Constipation Last Admin: 02/08/19 09:24 Dose: 8.6 mg Thiamine HCl (Vitamin B1 Tab) 100 mg PO DAILY [facility] Last Admin: 05/10/18 10:48 Dose: 100 mg Tramadol HCl (Ultram) 25 mg PO TID PRN PRN Reason: Pain, moderate (4-7) Last Admin: 05/10/18 17:31 Dose: 25 mg - Labs Labs: 05/11/18 06:24 05/11/18 06:24 PT 13.7 SECONDS (9.7-12.2) H 04/24/18 06:26 INR 1.3 04/24/18 06:26 APTT 42 SECONDS (21-34) H 04/24/18 06:26 - Constitutional Appears: Well, No Acute Distress - Head Exam Head Exam: ATRAUMATIC, NORMOCEPHALIC - Eye Exam Eye Exam: Normal appearance - ENT Exam ENT Exam: Mucous Membranes Moist - Respiratory Exam Respiratory Exam: NORMAL BREATHING PATTERN Additional comments: R chest tube in place with 90cc/24hrs output, on suction, no air leak, dressing clean/dry/intact - Cardiovascular Exam Cardiovascular Exam: RRR - GI/Abdominal Exam GI & Abdominal Exam: Soft - Neurological Exam Neurological Exam: Alert, Awake, Oriented x3 - Skin Skin Exam: Dry, Warm Assessment and Plan - Assessment and Plan (Free Text) Assessment: 43M s/p R thoracotomy with decortication; CT x 2; POD#17 Plan: - cont CT on suction; will remove once output is less than 50cc/24hrs - encourage incentive spirometer - d/w Dr. Susana Castro
[2018-05-11] MEDS: Lactobacillus Acidophilus 500 MU Cap PO SCH ×2 (10:55→17:51)
[2018-05-11] MEDS: Multiple Vitamins Tab PO SCH (10:56)
--- NOTE | 2018-05-11 12:29 | RAD ---
Chest x-ray single frontal view HISTORY: Chest tube. Comparison: 05/10/2018 Findings: Right chest tube with tip projecting to the right lung apex. Surgical clips in the right axilla. Persistent moderate loculated right pleural effusion. Consolidative opacification in the right mid to lower lung zone. Heart size within normal limits. Elevated right hemidiaphragm. Impression: Right chest tube with tip projecting to the right lung apex. Surgical clips in the right axilla. Persistent moderate loculated right pleural effusion. Consolidative opacification in the right mid to lower lung zone. Heart size within normal limits. Elevated right hemidiaphragm.
[2018-05-11] MEDS ORDERED: Iodixanol 320 MG/ML 100 ML BOTTLE IV ONE (13:13)
--- NOTE | 2018-05-11 13:53 | CP.PCM.CON ---
History of Present Illness - History of Present Illness History of Present Illness: Consultation Dr. Burton 43m complains of right knee pain for a few days, now worsening and more swollen. He says he has history of gout in his knee and his big toe, and he has had his knee drained before for this. Denies any trauma or falls. Patient admitted 4 weeks ago, was intubated, aspiration pneumonia and s/p chest tubes, +ETOH abuse/DTs during admission, on vanco and meropenem Review of Systems - Review of Systems All systems: reviewed and no additional remarkable complaints except - Musculoskeletal Musculoskeletal: As Per HPI Past Patient History - Past Medical History & Family History Past Medical History?: Yes Past Family History: Reviewed and not pertinent - Past Social History Smoking Status: Never Smoked - CARDIAC Hx Cardiac Disorders: No - PULMONARY Hx Respiratory Disorders: No - NEUROLOGICAL Hx Neurological Disorder: No - HEENT Hx HEENT Problems: No - RENAL Hx Chronic Kidney Disease: No - ENDOCRINE/METABOLIC Hx Endocrine Disorders: No - HEMATOLOGICAL/ONCOLOGICAL Hx Blood Disorders: No - INTEGUMENTARY Hx Dermatological Problems: No - MUSCULOSKELETAL/RHEUMATOLOGICAL Hx Musculoskeletal Disorders: No Hx Falls: No - GASTROINTESTINAL Hx Gastrointestinal Disorders: No - GENITOURINARY/GYNECOLOGICAL Hx Genitourinary Disorders: No - PSYCHIATRIC Hx Substance Use: No - SURGICAL HISTORY Hx Surgeries: No - ANESTHESIA Hx Anesthesia: No Hx Anesthesia Reactions: No Hx Malignant Hyperthermia: No Has any member of the family had a problem w/ anesthesia?: No Meds Allergies/Adverse Reactions: Allergies Allergy/AdvReac Type Severity Reaction Status Date / Time No Known Allergies Allergy Verified 04/13/18 20:35 - Medications Medications: Current Medications Albuterol/Ipratropium (Duoneb 3 Mg/0.5 Mg (3 Ml) Ud) 3 ml INH RQ6 [facility] Last Admin: 05/11/18 07:30 Dose: 3 ml Docusate Sodium (Colace) 100 mg PO TID [facility] Last Admin: 05/11/18 10:55 Dose: 100 mg Folic Acid (Folic Acid) 1 mg PO DAILY [facility] Last Admin: 05/11/18 10:55 Dose: 1 mg Meropenem 1 gm/ Sodium (Chloride) 100 mls @ 100 mls/hr IVPB Q8H [facility]; Protocol Last Admin: 05/11/18 04:03 Dose: 100 mls/hr Vancomycin HCl 1,000 mg/ (Sodium Chloride) 250 mls @ 166.6 mls/hr IVPB Q12H [facility]; Protocol Last Admin: 05/11/18 11:03 Dose: 166.6 mls/hr Lactobacillus Acidophilus (Lactobacillus) 1 cap PO BID [facility] Last Admin: 05/11/18 10:55 Dose: 1 cap Multivitamins (Hexavitamin) 1 tab PO DAILY [facility] Last Admin: 05/11/18 10:56 Dose: 1 tab Pantoprazole Sodium (Protonix Inj) 40 mg IVP DAILY [facility] Last Admin: 05/11/18 10:56 Dose: 40 mg Sennosides (Senokot Tab) 8.6 mg PO BID PRN PRN Reason: Constipation Last Admin: 05/01/18 09:24 Dose: 8.6 mg Thiamine HCl (Vitamin B1 Tab) 100 mg PO DAILY [facility] Last Admin: 05/11/18 10:56 Dose: 100 mg Tramadol HCl (Ultram) 25 mg PO TID PRN PRN Reason: Pain, moderate (4-7) Last Admin: 05/10/18 17:31 Dose: 25 mg Physical Exam - Constitutional Appears: Well, No Acute Distress - Head Exam Head Exam: ATRAUMATIC - Respiratory Exam Respiratory Exam: NORMAL BREATHING PATTERN - GI/Abdominal Exam Additional comments: +DP/PT pulses - Expanded Lower Extremities Exam Right Knee exam: effusion (moderate effusion, no erythema, generalized tenderness), tenderness (no laxity to varus/valgus) Neuro vacular tendon exam: no vascular compromise (calves soft NT neg homans, +DP/PT pulses, skin intact) - Neurological Exam Neurological exam: Alert, Oriented x3 - Psychiatric Exam Psychiatric exam: Normal Affect, Normal Mood - Skin Skin Exam: Dry, Intact (mildly warm, no erythema), Normal Color, Warm Results - Vital Signs Recent Vital Signs: Last Vital Signs Temp 98 F 05/11/18 08:02 Pulse 90 05/11/18 08:02 Resp 20 05/11/18 08:02 BP 106/72 05/11/18 08:02 Pulse Ox 96 05/11/18 08:02 - Labs Result Diagrams: 05/11/18 06:24 05/11/18 06:24 Labs: Laboratory Results - last 24 hr 05/11/18 05/11/18 06:24 06:24 WBC 12.3 H RBC 3.66 L Hgb 10.3 L Hct 32.1 L MCV 87.8 MCH 28.0 MCHC 31.9 L RDW 13.6 Plt Count 542 H MPV 7.9 Neut % (Auto) 75.2 H Lymph % (Auto) 11.5 L [place] % (Auto) 12.6 H Eos % (Auto) 0.0 Baso % (Auto) 0.7 Neut # (Auto) 9.3 H Lymph # (Auto) 1.4 [place] # (Auto) 1.5 H Eos # (Auto) 0.0 Baso # (Auto) 0.1 ESR 130 H Sodium 134 Potassium 4.2 Chloride 99 Carbon Dioxide 29 Anion Gap 10 BUN 11 Creatinine 0.5 L Est GFR ( Amer) > 60 Est GFR (Non-Af Amer) > 60 Random Glucose 115 H Uric Acid 3.7 Calcium 8.8 Total Bilirubin 0.4 AST 35 ALT 29 Alkaline Phosphatase 129 H C-Reactive Protein 149.10 H Total Protein 7.5 Albumin 3.2 L Globulin 4.3 H Albumin/Globulin Ratio 0.8 L Assessment & Plan (1) Effusion, right knee Assessment and Plan: r/o gout leukocytosis noted, afebrile, r/o septic arthritis as well right knee xray AP/lat reviewed, no fracture, no dislocation, no degenerative joint disease noted Risks, benefits, alternatives of knee arthrocentesis and aspiration were explained in detail, patient verbalized understanding and consented to procedure. The patients right knee was prepped in the usual sterile fashion with betadine and chloroprep. A 21-gauge 1.5 inch needle was inserted into the knee joint from a superior lateral approach. Through this needle 45 cc of clear yellow synovial fluid was aspirated, and sent for stat cell count, crystals, gram stain, culture and sensitivity. The needle was removed, and sterile dressing, ember bandage, and ice were applied to knee. Patient tolerated the procedure well. There were no complications. d/w Dr. Burton, will f/u results ADDENDUM: Fluid shows 40k WBC, 88% polys +crystals pseudogout will f/u cultures if negative will plan intraarticular steroid injection Dr. Burton aware of above Status: Acute (2) Pseudogout of right knee Status: Acute Procedures Attestation:: I certify that I have explained the specified Operation(s) or Procedure(s), risks, benefits and reasonable alternatives to the Patient and/or other person responsible. The opportunity was given to ask questions and all questions answered - Joint Aspiration/Injection Joint #1 Consent Obtained: Verbal Consent Time Out Performed: Yes Side of Body: Right Joint Aspirated: Knee Ultrasound Guidance Used: No Skin Prep: Povidone-Iodine, Chlorprep Needle Size Used: 22 G Fluid Clarity: Clear (slightly cloudy yellow fluid) Total Fluid Removed (mls): 45 Patient Tolorated Procedure: Well Complications: None
[2018-05-11 14:39] LABS: FLUID TYPE SYNOVIAL FLUID
[2018-05-11 15:17] LABS: CRYSTAL TYPE CalciumPyrophosphate; FLUID CRYSTALS POSITIVE (NEGATIVE)
--- NOTE | 2018-05-11 15:18 | RAD ---
PROCEDURE: Right Knee Radiographs. HISTORY: knee effusion COMPARISON: None available FINDINGS: BONES: No acute displaced fracture. JOINTS: No dislocation. JOINT EFFUSION: Moderate to large suprapatellar joint effusion. OTHER FINDINGS: None. IMPRESSION: Moderate to large suprapatellar effusion. No acute displaced fracture or dislocation identified. If symptoms persist, or if there is continued clinical concern, x-ray follow-up in 7-10 days should be considered.
[2018-05-11 15:26] LABS: SF GROSS APPEARANCE CLOUDY (CLEAR); SYNOVIAL FLUID MONO/MACROPHAGE 4 % (0-0)
--- NOTE | 2018-05-11 17:55 | CT ---
Date of service: 05/11/2018 PROCEDURE: CT Chest with contrast HISTORY: Evaluate chest tube and effusion. COMPARISON: Comparison made with CT chest 05/04/2018.. TECHNIQUE: Contiguous axial images were obtained through the chest with intravenous contrast enhancement. Sagittal and coronal reconstructions were performed. IV contrast: 100 cc Visipaque 320 Radiation dose: Total exam DLP = 661.96 mGy-cm. This CT exam was performed using one or more of the following dose reduction techniques: Automated exposure control, adjustment of the mA and/or kV according to patient size, and/or use of iterative reconstruction technique. FINDINGS: LUNGS: There is a very tiny residual on right sided pneumothorax with small residual right-sided pleural effusion (hydropneumothorax). In situ right-sided posterior chest tube remains essentially unchanged in position... Note. There is a small amount of debris within the superior aspect of the chest tube although the chest tube is not completely occluded.. Previously noted anteriorly located chest tube has been removed.. Areas of atelectasis and presumed granulation tissue what appears to represent membranes-granulation tissue right lower lobe as well as middle lobe. Minor similar changes seen in the posterior aspect of the upper lobe. There appears to be a small elliptical shaped possibly loculated collection along the anterior mid mediastinum mild bordering the IVC/right atrial junction which measures approximately 3.65 x 2.1 cm. Incidental note made of linear hyperdense material along the right basilar lateral pleural surface could represent sequela of pleurodesis.. Previously noted right lateral chest wall collection with surrounding infiltration possibly related to a since removed the chest tube has diminished in size. Minimal left basilar atelectasis with questionable trace left effusion. Note also made of extensive venous collaterals in the surrounding the right shoulder girdle including subscapularis and supraspinatus region. Findings are of uncertain etiology though could be due to subcutaneous edema with slow venous flow. MEDIASTINUM: Heart is enlarged. There is a tiny pericardial effusion. Ascending thoracic aorta measures approximately 3.1 cm and descending thoracic aorta measures approximately 2.8 cm. No aortic atherosclerotic calcification or mural plaque present. Pulmonary trunk measures approximately 3.0 cm. There are a few small to medium-sized mediastinal lymph nodes the largest in the left paratracheal/AP window junction region measuring 14 mm. No significant hilar adenopathy. The trachea midline and patent with no large central endoluminal lesions. There is a small hiatal hernia. PLEURA: There is a very tiny residual right basilar pneumothorax. BONES: No fracture. No destructive lesion. UPPER ABDOMEN: Grossly unremarkable. OTHER FINDINGS: None. IMPRESSION: There is a very tiny residual on right sided pneumothorax with small residual right-sided pleural effusion (hydropneumothorax). In situ right-sided posterior chest tube remains essentially unchanged in position... Note. There is a small amount of debris within the superior aspect of the chest tube although the chest tube is not completely occluded.. Previously noted anteriorly located chest tube has been removed.. Areas of atelectasis and presumed granulation tissue what appears to represent membranes-granulation tissue right lower lobe as well as middle lobe. Minor similar changes seen in the posterior aspect of the upper lobe. There appears to be a small elliptical shaped possibly loculated collection along the anterior mid mediastinum mild bordering the IVC/right atrial junction which measures approximately 3.65 x 2.1 cm. Small cardiomegaly with small pericardial effusion. See above discussion for additional details and findings.
[2018-05-12] MEDS: Meropenem 1 GM in Sodium Chloride 0.9% 100 ML IVPB SCH ×2 (04:45→12:35)
[2018-05-12 06:38] LABS: HEMOGLOBIN 10.7 g/dL (12.0-18.0); MEAN CELL VOLUME 87.9 fL (80.0-94.0); MEAN CORPUSCULAR HEMOGLOBIN 28.9 pg (27.0-31.0); MEAN CORPUSCULAR HGB CONC 32.9 g/dL (33.0-37.0); MEAN PLATELET VOLUME 7.8 fL (7.2-11.7); RBC 3.68 Mil/uL (4.40-5.90); RED CELL DISTRIBUTION WIDTH 13.9 % (11.5-14.5); WHITE BLOOD COUNT 7.7 K/uL (4.8-10.8)
[2018-05-12 06:49] LABS: BLOOD UREA NITROGEN 13 mg/dL (9-20); CALCIUM 9.1 mg/dl (8.6-10.4); GFR NON-AFRICAN AMERICAN > 60
[2018-05-12] MEDS: Lactobacillus Acidophilus 500 MU Cap PO SCH ×2 (09:02→17:57)
[2018-05-12] MEDS: Multiple Vitamins Tab PO SCH (09:03)
[2018-05-12] MEDS: Albuterol-Ipratrop 3 mg / 0.5 (3 ml) UD INH SCH ×3 (09:24→20:39)
--- NOTE | 2018-05-12 11:31 | CP.PCM.PN ---
Subjective - Date & Time of Evaluation Date of Evaluation: 05/12/18 Time of Evaluation: 11:26 - Subjective Subjective: SURGERY CONSULT NOTE FOR DR. HERNANDEZ 43M seen and examined at bedside. Patient denies any pain, denies shortness of breath. Objective - Vital Signs/Intake and Output Vital Signs (last 24 hours): Temp Pulse Resp BP Pulse Ox 98.4 F 100 H 20 116/70 95 05/12/18 07:00 05/12/18 07:00 05/12/18 07:00 05/12/18 07:00 05/12/18 07:00 Intake and Output: 05/12/18 05/12/18 06:59 18:59 Intake Total 2300 Output Total 2870 Balance -570 - Medications Medications: Current Medications Albuterol/Ipratropium (Duoneb 3 Mg/0.5 Mg (3 Ml) Ud) 3 ml INH RQ6 [facility] Last Admin: 05/12/18 09:24 Dose: 3 ml Docusate Sodium (Colace) 100 mg PO TID [facility] Last Admin: 05/12/18 09:02 Dose: 100 mg Folic Acid (Folic Acid) 1 mg PO DAILY [facility] Last Admin: 05/12/18 09:02 Dose: 1 mg Meropenem 1 gm/ Sodium (Chloride) 100 mls @ 100 mls/hr IVPB Q8H [facility]; Protocol Last Admin: 05/12/18 04:45 Dose: 100 mls/hr Indomethacin (Indocin) 25 mg PO BID [facility] Last Admin: 05/12/18 09:03 Dose: 25 mg Lactobacillus Acidophilus (Lactobacillus) 1 cap PO BID [facility] Last Admin: 05/12/18 09:02 Dose: 1 cap Multivitamins (Hexavitamin) 1 tab PO DAILY [facility] Last Admin: 05/12/18 09:03 Dose: 1 tab Pantoprazole Sodium (Protonix Inj) 40 mg IVP DAILY [facility] Last Admin: 05/12/18 09:04 Dose: 40 mg Sennosides (Senokot Tab) 8.6 mg PO BID PRN PRN Reason: Constipation Last Admin: 05/01/18 09:24 Dose: 8.6 mg Thiamine HCl (Vitamin B1 Tab) 100 mg PO DAILY [facility] Last Admin: 05/12/18 09:03 Dose: 100 mg Tramadol HCl (Ultram) 25 mg PO TID PRN PRN Reason: Pain, moderate (4-7) Last Admin: 05/10/18 17:31 Dose: 25 mg - Labs Labs: 05/12/18 06:26 05/12/18 06:26 PT 13.7 SECONDS (9.7-12.2) H 04/24/18 06:26 INR 1.3 04/24/18 06:26 APTT 42 SECONDS (21-34) H 04/24/18 06:26 - Constitutional Appears: Non-toxic, No Acute Distress - Respiratory Exam Respiratory Exam: Clear to Ausculation Bilateral, NORMAL BREATHING PATTERN Additional comments: right chest tube in place - 130cc/24hrs serosang fluid, no air leak - Cardiovascular Exam Cardiovascular Exam: REGULAR RHYTHM, +S1, +S2 - GI/Abdominal Exam GI & Abdominal Exam: Soft. absent: Distended, Firm, Guarding, Rigid, Tenderness, Rebound - Neurological Exam Neurological Exam: Alert, Awake - Skin Skin Exam: Dry, Intact, Normal Color, Warm Assessment and Plan - Assessment and Plan (Free Text) Assessment: 43M with right thoracotomy, with evacuation of empyema, chest tube in place POD#18 Plan: - monitor chest tube output - Daily CXR Further recs discuss with Dr. Susana Hernandez, PGY3
--- NOTE | 2018-05-12 14:58 | CP.PCM.PN ---
Subjective - Date & Time of Evaluation Date of Evaluation: 05/12/18 Time of Evaluation: 12:30 - Subjective Subjective: Orthopedic progress note Patient seen and examined OOB to chair comfortable. Pain is much improved following right knee aspiration yesterday. No new complaints. Objective - Vital Signs/Intake and Output Vital Signs (last 24 hours): Temp Pulse Resp BP Pulse Ox 98.4 F 100 H 20 116/70 95 05/12/18 07:00 05/12/18 07:00 05/12/18 07:00 05/12/18 07:00 05/12/18 07:00 Intake and Output: 05/12/18 05/12/18 06:59 18:59 Intake Total 2300 750 Output Total 2870 510 Balance -570 240 - Medications Medications: Current Medications Albuterol/Ipratropium (Duoneb 3 Mg/0.5 Mg (3 Ml) Ud) 3 ml INH RQ6 [facility] Last Admin: 05/12/18 14:19 Dose: Not Given Docusate Sodium (Colace) 100 mg PO TID [facility] Last Admin: 05/12/18 13:13 Dose: 100 mg Folic Acid (Folic Acid) 1 mg PO DAILY [facility] Last Admin: 05/12/18 09:02 Dose: 1 mg Meropenem 1 gm/ Sodium (Chloride) 100 mls @ 100 mls/hr IVPB Q8H [facility]; Protocol Last Admin: 05/12/18 12:35 Dose: 100 mls/hr Indomethacin (Indocin) 25 mg PO BID [facility] Last Admin: 05/12/18 09:03 Dose: 25 mg Lactobacillus Acidophilus (Lactobacillus) 1 cap PO BID [facility] Last Admin: 05/12/18 09:02 Dose: 1 cap Multivitamins (Hexavitamin) 1 tab PO DAILY [facility] Last Admin: 05/12/18 09:03 Dose: 1 tab Pantoprazole Sodium (Protonix Ec Tab) 40 mg PO DAILY [facility] Sennosides (Senokot Tab) 8.6 mg PO BID PRN PRN Reason: Constipation Last Admin: 05/01/18 09:24 Dose: 8.6 mg Thiamine HCl (Vitamin B1 Tab) 100 mg PO DAILY [facility] Last Admin: 05/12/18 09:03 Dose: 100 mg Tramadol HCl (Ultram) 25 mg PO TID PRN PRN Reason: Pain, moderate (4-7) Last Admin: 05/10/18 17:31 Dose: 25 mg - Labs Labs: 05/12/18 06:26 05/12/18 06:26 PT 13.7 SECONDS (9.7-12.2) H 04/24/18 06:26 INR 1.3 04/24/18 06:26 APTT 42 SECONDS (21-34) H 04/24/18 06:26 - Extremities Exam Additional comments: R knee: Dressings CDI mild effusion and swelling no tenderness to palpation sensation intact SP/DP/TN motor intact EHL/FHL/TA/G pedal pulses intact calves soft NT b/l Assessment and Plan (1) Pseudogout of right knee Assessment & Plan: -Aspiration cultures x 3 no growth for 24hrs, continue to monitor -If cultures finalized negative, possible cortisone injection if pain worsens -PT/OT -NSAID's prn pain, anti-gout meds -above d/w Dr. Burton in agreement Status: Acute
--- NOTE | 2018-05-12 15:10 | CP.PCM.PN ---
Subjective - Date & Time of Evaluation Date of Evaluation: 05/12/18 Time of Evaluation: 15:07 - Subjective Subjective: Pt s/e. No c/o. vss. [id number] chest tube-1110cc/y ss/no air leak. a/p; Continue chest tube to suction. Continue current supportive care. Objective - Vital Signs/Intake and Output Vital Signs (last 24 hours): Temp Pulse Resp BP Pulse Ox 98.4 F 100 H 20 116/70 95 05/12/18 07:00 05/12/18 07:00 05/12/18 07:00 05/12/18 07:00 05/12/18 07:00 Intake and Output: 05/12/18 05/12/18 06:59 18:59 Intake Total 2300 750 Output Total 2870 510 Balance -570 240 - Medications Medications: Current Medications Albuterol/Ipratropium (Duoneb 3 Mg/0.5 Mg (3 Ml) Ud) 3 ml INH RQ6 [facility] Last Admin: 05/12/18 14:19 Dose: Not Given Docusate Sodium (Colace) 100 mg PO TID [facility] Last Admin: 05/12/18 13:13 Dose: 100 mg Folic Acid (Folic Acid) 1 mg PO DAILY [facility] Last Admin: 05/12/18 09:02 Dose: 1 mg Meropenem 1 gm/ Sodium (Chloride) 100 mls @ 100 mls/hr IVPB Q8H [facility]; Protocol Last Admin: 05/12/18 12:35 Dose: 100 mls/hr Indomethacin (Indocin) 25 mg PO BID [facility] Last Admin: 05/12/18 09:03 Dose: 25 mg Lactobacillus Acidophilus (Lactobacillus) 1 cap PO BID [facility] Last Admin: 05/12/18 09:02 Dose: 1 cap Multivitamins (Hexavitamin) 1 tab PO DAILY [facility] Last Admin: 05/12/18 09:03 Dose: 1 tab Pantoprazole Sodium (Protonix Ec Tab) 40 mg PO DAILY [facility] Sennosides (Senokot Tab) 8.6 mg PO BID PRN PRN Reason: Constipation Last Admin: 05/01/18 09:24 Dose: 8.6 mg Thiamine HCl (Vitamin B1 Tab) 100 mg PO DAILY [facility] Last Admin: 05/12/18 09:03 Dose: 100 mg Tramadol HCl (Ultram) 25 mg PO TID PRN PRN Reason: Pain, moderate (4-7) Last Admin: 05/10/18 17:31 Dose: 25 mg - Labs Labs: 05/12/18 06:26 05/12/18 06:26 PT 13.7 SECONDS (9.7-12.2) H 04/24/18 06:26 INR 1.3 04/24/18 06:26 APTT 42 SECONDS (21-34) H 04/24/18 06:26
--- NOTE | 2018-05-12 16:36 | CP.PCM.PN ---
<Edi Valdez - Last Filed: 05/12/18 16:33> Subjective - Date & Time of Evaluation Date of Evaluation: 05/12/18 Time of Evaluation: 16:33 - Subjective Subjective: HOSPITALIST SERVICE Pt s/e at bedside, reports resolution of knee pain, and denies any complaint from chest tube insertions, denies fc nv sob cp. Objective - Vital Signs/Intake and Output Vital Signs (last 24 hours): Temp Pulse Resp BP Pulse Ox 98.4 F 100 H 20 116/70 95 05/12/18 07:00 05/12/18 07:00 05/12/18 07:00 05/12/18 07:00 05/12/18 07:00 Intake and Output: 05/12/18 05/12/18 06:59 18:59 Intake Total 2300 750 Output Total 2870 510 Balance -570 240 - Medications Medications: Current Medications Albuterol/Ipratropium (Duoneb 3 Mg/0.5 Mg (3 Ml) Ud) 3 ml INH RQ6 [facility] Last Admin: 05/12/18 14:19 Dose: Not Given Docusate Sodium (Colace) 100 mg PO TID [facility] Last Admin: 05/12/18 13:13 Dose: 100 mg Folic Acid (Folic Acid) 1 mg PO DAILY [facility] Last Admin: 05/12/18 09:02 Dose: 1 mg Meropenem 1 gm/ Sodium (Chloride) 100 mls @ 100 mls/hr IVPB Q8H [facility]; Protocol Last Admin: 05/12/18 12:35 Dose: 100 mls/hr Indomethacin (Indocin) 25 mg PO BID [facility] Last Admin: 05/12/18 09:03 Dose: 25 mg Lactobacillus Acidophilus (Lactobacillus) 1 cap PO BID [facility] Last Admin: 05/12/18 09:02 Dose: 1 cap Multivitamins (Hexavitamin) 1 tab PO DAILY [facility] Last Admin: 05/12/18 09:03 Dose: 1 tab Pantoprazole Sodium (Protonix Ec Tab) 40 mg PO DAILY [facility] Sennosides (Senokot Tab) 8.6 mg PO BID PRN PRN Reason: Constipation Last Admin: 05/01/18 09:24 Dose: 8.6 mg Thiamine HCl (Vitamin B1 Tab) 100 mg PO DAILY [facility] Last Admin: 05/12/18 09:03 Dose: 100 mg Tramadol HCl (Ultram) 25 mg PO TID PRN PRN Reason: Pain, moderate (4-7) Last Admin: 05/10/18 17:31 Dose: 25 mg - Labs Labs: 05/12/18 06:26 05/12/18 06:26 PT 13.7 SECONDS (9.7-12.2) H 04/24/18 06:26 INR 1.3 04/24/18 06:26 APTT 42 SECONDS (21-34) H 04/24/18 06:26 - Additional Findings Additional findings: - Head Exam Head Exam: ATRAUMATIC, NORMAL INSPECTION - Eye Exam Eye Exam: EOMI, Normal appearance - ENT Exam ENT Exam: Mucous Membranes Moist - Neck Exam Neck Exam: Full ROM - Respiratory Exam Respiratory Exam: Chest Wall Tenderness (to the right, near chest tube insertion site. area is clean dry, no signs of infection of bleeding/hematoma), Decreased Breath Sounds (on the right), Rhonchi (on the right), NORMAL BREATHING PATTERN. absent: Wheezes, Respiratory Distress Additional comments: Posterior chest tube in place with serosanguinous drainage No leak noted - Cardiovascular Exam Cardiovascular Exam: Tachycardia, REGULAR RHYTHM, +S1, +S2 - GI/Abdominal Exam GI & Abdominal Exam: Soft, Normal Bowel Sounds. absent: Guarding, Rigid, Tenderness - Extremities Exam Extremities Exam: Normal Capillary Refill, Normal Inspection, Tenderness (moderate right knee tenderness with suprapatellar effusion, warm to touch). absent: Calf Tenderness, Full ROM (limited extension of knees bilaterally), Joint Swelling, Pedal Edema - Neurological Exam Neurological Exam: Alert - Psychiatric Exam Psychiatric exam: Normal Affect, Normal Mood - Skin Skin Exam: Dry, Normal Color, Warm Assessment and Plan - Assessment and Plan (Free Text) Assessment: 43M admitted for alcohol withdrawl, aspiration pneumonia, infective empyema s/p thoracotomy w/ decortication on 04/24 w/ Dr Meza 1). Sepsis Secondary to Right Middle and Lower Lobe Pneumonia and Suspected Empyema * Infectious Disease (Dr. Spring) on case * Cardiothoracic Surgery Dr. Meza: Chest tube placed 04/18/18 * Post operative note April 24, 2018. Patient underwent a right thoracotomy, decortication of the right lung, drainage of the right lung infection/exudates, right middle inferior lobe biopsy performed, right-sided chest tube placement x2. Specimen noted portion of the middle lobe of the right lobe, portion of the lower lobe on right lung, right lung fluid/hematoma. * Lung Tissue Culture 04/24/18 is negative to date * Pleural Fluid Culture 04/24/18 is negative to date * Pleural Fluid Fungal Culture 04/24/18 is negative * Pleural Fluid Mycobacterium Culture 04/24/18 shows NO AFB * Chest tube 1 removed 05/08/18 (anterior-lateral): Chest tube #2 remains. * Procalcitonin: 1.64--> <0.05 * Criteria: Leukocytosis, fever, pneumonia/empyema * CT chest from Apr 15, 2018. Cardiomegaly. Trace pericardial effusion. Co ronary artery calcifications. Extensive consolidation throughout the right hemithorax with relative sparing of the right lung apex. Small loculated right-sided pleural effusion measuring approximately 2.1 cm in maximum depth superinfection is not excluded. Mild left basal bibasilar atelectasis. Left hemithorax. Otherwise grossly clear. Limited visualization of the upper abdomen reveals hepatomegaly. Diffuse hepatic steatosis with 2 more focal hypodense regions favored to represent focal fatty infiltration. * CT chest from Apr 17 was suboptimal. No evidence of central pulmonary embolus. Interval worsening of airspace consolidation at the right lung contains foci of low-attenuation possible fluid collection since prior study interval worsening of the right-sided multiple likely request for sacral pleural effusion. * CT chest from 04/20/2018 noted for decreased right pleural effusion. Right chest tube. Extensive right lower lobe atelectasis with right middle lobe and left lower lobe segmental atelectasis. Small left pleural effusion. No pneumothorax. Endotracheal tube and nasogastric tube noted. * Chest xray (04/25/18): postop changes are slowly resolving at the right hemithor ax as post decorticulation previously. Tube and catheters unchanged in position with right basilar atectasis favored over infiltrate. Mild right pleural effusion is noted including the minor fissue. Limited left perihilar opacity density noted. * CT Chest 05/04/18: suture material along the right lateral chest wall. small right hydropneumothorac. Right sided chest tube. Scattered right mid to lower lobe infiltrate or atelectasis. 2.3X7.7X5.6cm right chest wall collection. right 6th and 7th rib fractures. * CT Chest w/ contrast (05/11/18): * Azithromycin and Rocephin were discontinued on 04/15/18 * Zosyn 3.375 gm IV Q6H (04/15/18 through 04/16/18) * Tamiflu 75 mg PO 2x/day (04/14/18 through 04/19/18) * Gentamicin 80mg IV Q12H (04/21/18 through 04/25/18) * Micafungin 100mg IV Q24H (04/23/18 through 04/27/18) * Clindamycin 900 mg IV Q8H (04/16/18 through 04/27/18) * Amikacin 500mg IVPB Q12H (04/25/18 through 04/30/18) Current IV Abx: * Augmentin 875 BID PO for 03/30 days 2). Acute Respiratory Failure secondary to Pneumonia/Empyema Assessment/Plan * Patient was intubated and placed on vent on evening 04/15/18 after he started to have DTs * Patient was on Vent from admission through 04/28/18 * Patient is extubated and stabilized from the ICU to the general medical floor. 3). Alcohol Withdrawal DTs Assessment/Plan * MVI tab PO daily * Vitamin B1 tab PO daily * Folic Acid 1 tab PO daily * Social work: alcohol anonymous 4). Bilateral Perinephric Stranding (resolved) As seen on CT Abdomen/Pelvis * UA shows NEGATIVE Nitrate, Ketones, and LE * Repeat urine cultures are negative * While intubated did have roman but is now using urinal 5). Alcohol Abuse * Patient revealed 04/14/18 that he drank shots and multiple beers twice a week but told overnight team at time of admission that he did this 5x per week. * Last drink was this past Friday04/10/18 as per patient * MVI tab PO daily * Vitamin B1 tab PO daily * Folic Acid 1 tab PO daily 6). Hyponatremia (resolved) * Likely SIADH * TSH and T4 are normal * Morning Cortisol normal * Triglycerides normal * Urine Osm was high * Urine Na was 35 7). Tachycardia * continue to monitor * possible secondary to pain recent cardiothoracic surgery and now with right knee pain * Surgeon recommends against therapeutic lovenox in regards to prior cephalic vein thrombosis; patient is on scheduled Motrin for treatment of cephalic vein thrombosis 8). Elevated LFTs and Hepatic Parenchymal Disease (as seen CT Abdomen) Likely secondary to suspected alcohol abuse * Hepatitis Panel negative * HIV negative * UDS negative * On CT scan noted hepatomegaly * Normalized 9). Hypokalemia * monitor and replete 10).Hypomagnesemia * monitor and replete 11). Constipation (resolved) * continue to monitor 12) Bilateral Cephalic Vein Thrombosises * Patient was on therapeutic lovenox 100mg subq12 Hr held prior to OR 04/23/18 * As these are NOT DVTS, therapeutic lovenox was discontinued * Motrin 400mg PO6H changed from PRN for fever to scheduled for treatment of superficial vein thrombosis. 13) PseudoGout * Indomethecin BID * Seen with Feli Melendez PA: joint aspirated 45cc cloudy yellow aspirate removed * Pos Synovial Fluid analysis * Orthopedics, Dr. Burton, consulted. Recommendations appreciated 14). Prophylaxis * DVT risk score of 2 based upon Age and diagnosis of Sepsis: Lovenox 40mg subqdaily Bilateral SCDs * Extubated * Lactobacillus PO 2x/day * Lovenox 40mg subdaily * TLC placed on 04/22/18 * PT/OT Disposition: chest tube management per cardiothoracic surgery. Patient is on IV abx to cover for empyema secondary to aspiration pneumonia. Pt to have xray of right knee, and orthopedic consult for effusion. <Derek Shultz - Last Filed: 05/12/18 16:40> Objective - Vital Signs/Intake and Output Vital Signs (last 24 hours): Temp Pulse Resp BP Pulse Ox 98.4 F 100 H 20 116/70 95 05/12/18 07:00 05/12/18 07:00 05/12/18 07:00 05/12/18 07:00 05/12/18 07:00 Intake and Output: 05/12/18 05/12/18 06:59 18:59 Intake Total 2300 750 Output Total 2870 510 Balance -570 240 - Medications Medications: Current Medications Albuterol/Ipratropium (Duoneb 3 Mg/0.5 Mg (3 Ml) Ud) 3 ml INH RQ6 [facility] Last Admin: 05/12/18 14:19 Dose: Not Given Amoxicillin/Clavulanate Potassium (Augmentin 875 Mg-125 Mg Tab) 1 tab PO Q12H [facility]; Protocol Docusate Sodium (Colace) 100 mg PO TID [facility] Last Admin: 05/12/18 13:13 Dose: 100 mg Folic Acid (Folic Acid) 1 mg PO DAILY [facility] Last Admin: 05/12/18 09:02 Dose: 1 mg Indomethacin (Indocin) 25 mg PO BID [facility] Last Admin: 05/12/18 09:03 Dose: 25 mg Lactobacillus Acidophilus (Lactobacillus) 1 cap PO BID [facility] Last Admin: 05/12/18 09:02 Dose: 1 cap Multivitamins (Hexavitamin) 1 tab PO DAILY [facility] Last Admin: 05/12/18 09:03 Dose: 1 tab Pantoprazole Sodium (Protonix Ec Tab) 40 mg PO DAILY [facility] Sennosides (Senokot Tab) 8.6 mg PO BID PRN PRN Reason: Constipation Last Admin: 05/01/18 09:24 Dose: 8.6 mg Thiamine HCl (Vitamin B1 Tab) 100 mg PO DAILY [facility] Last Admin: 05/12/18 09:03 Dose: 100 mg Tramadol HCl (Ultram) 25 mg PO TID PRN PRN Reason: Pain, moderate (4-7) Last Admin: 05/10/18 17:31 Dose: 25 mg - Labs Labs: 05/12/18 06:26 05/12/18 06:26 PT 13.7 SECONDS (9.7-12.2) H 04/24/18 06:26 INR 1.3 04/24/18 06:26 APTT 42 SECONDS (21-34) H 04/24/18 06:26 Attending/Attestation - Attestation I have personally seen and examined this patient.: Yes I have fully participated in the care of the patient.: Yes I have reviewed all pertinent clinical information, including history, physical exam and plan: Yes Notes (Text): Patient seen and examined with the residents, agree with above. Resting comfortably, chest tube in place with approximately 300cc of fluid in the drain Continue with Abx - de-escalation of therapy as per ID.
[2018-05-12] MEDS: Amoxicillin-Clav 875-125 mg Tab PO SCH ×2 (16:58→18:02)
[2018-05-13] MEDS: Albuterol-Ipratrop 3 mg / 0.5 (3 ml) UD INH SCH ×4 (02:47→20:00)
[2018-05-13] MEDS: Amoxicillin-Clav 875-125 mg Tab PO SCH ×2 (05:37→16:07)
[2018-05-13] MEDS: Tramadol 25 mg PO PRN ×2 (05:38→17:24)
--- NOTE | 2018-05-13 08:45 | RAD ---
Chest x-ray single frontal view HISTORY: Right chest tube. COMPARISON: 05/11/2018 Findings: Right chest tube with tip extending to the right lung apex. Persistent moderate loculated right pleural effusion. Linear atelectasis in the right midlung zone. Prominent consolidative opacification in the right mid to lower lung zone. Heart size within normal limits. Degenerative changes within the spine and shoulders. Impression: Right chest tube with tip extending to the right lung apex. Persistent moderate loculated right pleural effusion. Linear atelectasis in the right midlung zone. Prominent consolidative opacification in the right mid to lower lung zone.
[2018-05-13] MEDS: Multiple Vitamins Tab PO SCH (09:26)
[2018-05-13] MEDS: Lactobacillus Acidophilus 500 MU Cap PO SCH ×2 (09:26→17:24)
[2018-05-13] MEDS: Pantoprazole 40 mg EC Tab PO SCH (09:26)
--- NOTE | 2018-05-13 09:40 | CP.PCM.PN ---
<Edi Valdez - Last Filed: 05/13/18 16:20> Subjective - Date & Time of Evaluation Date of Evaluation: 05/13/18 Time of Evaluation: 09:36 - Subjective Subjective: HOSPITALIST SERVICE Pt s/e at bedside, complains of mild epigastric pain today, as per sx team to get chest tubes removed today. Pt denies cp sob fc nv, feels improving, pt understands current status and agrees with plan Objective - Vital Signs/Intake and Output Vital Signs (last 24 hours): Temp Pulse Resp BP Pulse Ox 97.8 F 104 H 20 111/75 95 05/13/18 07:00 05/13/18 07:00 05/13/18 07:00 05/13/18 07:00 05/13/18 07:00 Intake and Output: 05/13/18 05/13/18 06:59 18:59 Intake Total 510 Output Total 760 Balance -250 - Medications Medications: Current Medications Albuterol/Ipratropium (Duoneb 3 Mg/0.5 Mg (3 Ml) Ud) 3 ml INH RQ6 [facility] Last Admin: 05/13/18 08:29 Dose: 3 ml Amoxicillin/Clavulanate Potassium (Augmentin 875 Mg-125 Mg Tab) 1 tab PO Q12H [facility]; Protocol Last Admin: 05/13/18 05:37 Dose: 1 tab Docusate Sodium (Colace) 100 mg PO TID [facility] Last Admin: 05/13/18 09:26 Dose: 100 mg Folic Acid (Folic Acid) 1 mg PO DAILY [facility] Last Admin: 05/13/18 09:26 Dose: 1 mg Indomethacin (Indocin) 25 mg PO BID [facility] Last Admin: 05/13/18 09:25 Dose: 25 mg Lactobacillus Acidophilus (Lactobacillus) 1 cap PO BID [facility] Last Admin: 05/13/18 09:26 Dose: 1 cap Multivitamins (Hexavitamin) 1 tab PO DAILY [facility] Last Admin: 05/13/18 09:26 Dose: 1 tab Pantoprazole Sodium (Protonix Ec Tab) 40 mg PO DAILY [facility] Last Admin: 05/13/18 09:26 Dose: 40 mg Sennosides (Senokot Tab) 8.6 mg PO BID PRN PRN Reason: Constipation Last Admin: 05/01/18 09:24 Dose: 8.6 mg Thiamine HCl (Vitamin B1 Tab) 100 mg PO DAILY [facility] Last Admin: 05/13/18 09:26 Dose: 100 mg Tramadol HCl (Ultram) 25 mg PO TID PRN PRN Reason: Pain, moderate (4-7) Last Admin: 05/13/18 05:38 Dose: 25 mg - Labs Labs: 05/12/18 06:26 05/12/18 06:26 PT 13.7 SECONDS (9.7-12.2) H 04/24/18 06:26 INR 1.3 04/24/18 06:26 APTT 42 SECONDS (21-34) H 04/24/18 06:26 - Additional Findings Additional findings: - Head Exam Head Exam: ATRAUMATIC, NORMAL INSPECTION - Eye Exam Eye Exam: EOMI, Normal appearance - ENT Exam ENT Exam: Mucous Membranes Moist - Neck Exam Neck Exam: Full ROM - Respiratory Exam Respiratory Exam: Chest Wall Tenderness (to the right, near chest tube insertion site. area is clean dry, no signs of infection of bleeding/hematoma), Decreased Breath Sounds (on the right), Rhonchi (on the right), NORMAL BREATHING PATTERN. absent: Wheezes, Respiratory Distress Additional comments: Posterior chest tube in place with serosanguinous drainage No leak noted - Cardiovascular Exam Cardiovascular Exam: Tachycardia, REGULAR RHYTHM, +S1, +S2 - GI/Abdominal Exam GI & Abdominal Exam: Soft, Normal Bowel Sounds. absent: Guarding, Rigid, Tenderness - Extremities Exam Extremities Exam: Normal Capillary Refill, Normal Inspection, Tenderness (moderate right knee tenderness with suprapatellar effusion, warm to touch). absent: Calf Tenderness, Full ROM (limited flexion of knees bilaterally), Joint Swelling, Pedal Edema - Neurological Exam Neurological Exam: Alert - Psychiatric Exam Psychiatric exam: Normal Affect, Normal Mood - Skin Skin Exam: Dry, Normal Color, Warm Assessment and Plan - Assessment and Plan (Free Text) Assessment: 43M admitted for alcohol withdrawl, aspiration pneumonia, infective empyema s/p thoracotomy w/ decortication on 04/24 w/ Dr Meza, chest tubes removed 05/13). Sepsis Secondary to Right Middle and Lower Lobe Pneumonia and Suspected Empyema * Infectious Disease (Dr. Spring) on case * Cardiothoracic Surgery Dr. Meza: Chest tube placed 04/18/18 * Post operative note April 24, 2018. Patient underwent a right thoracotomy, decortication of the right lung, drainage of the right lung infection/exudates, right middle inferior lobe biopsy performed, right-sided chest tube placement x2. Specimen noted portion of the middle lobe of the right lobe, portion of the lower lobe on right lung, right lung fluid/hematoma. * Lung Tissue Culture 04/24/18 is negative to date * Pleural Fluid Culture 04/24/18 is negative to date * Pleural Fluid Fungal Culture 04/24/18 is negative * Pleural Fluid Mycobacterium Culture 04/24/18 shows NO AFB * Chest tube 1 removed 05/08/18 (anterior-lateral): Chest tube #2 removed 05/13/18 (posterior) * Procalcitonin: 1.64--> <0.05 * Criteria: Leukocytosis, fever, pneumonia/empyema * CT chest from Apr 15, 2018. Cardiomegaly. Trace pericardial effusion. Coronary artery calcifications. Extensive consolidation throughout the right hemithorax with relative sparing of the right lung apex. Small loculated right-sided pleural effusion measuring approximately 2.1 cm in maximum depth superinfection is not excluded. Mild left basal bibasilar atelectasis. Left hemithorax. Otherwise grossly clear. Limited visualization of the upper abdomen reveals hepatomegaly. Diffuse hepatic steatosis with 2 more focal hypodense regions favored to represent focal fatty infiltration. * CT chest from Apr 17 was suboptimal. No evidence of central pulmonary embolus. Interval worsening of airspace consolidation at the right lung contains foci of low-attenuation possible fluid collection since prior study interval worsening of the right-sided multiple likely request for sacral pleural effusion. * CT chest from 04/20/2018 noted for decreased right pleural effusion. Right chest tube. Extensive right lower lobe atelectasis with right middle lobe and left lower lobe segmental atelectasis. Small left pleural effusion. No pneumothorax. Endotracheal tube and nasogastric tube noted. * Chest xray (04/25/18): postop changes are slowly resolving at the right hemithorax as post decorticulation previously. Tube and catheters unchanged in position with right basilar atectasis favored over infiltrate. Mild right p leural effusion is noted including the minor fissue. Limited left perihilar opacity density noted. * CT Chest 05/04/18: suture material along the right lateral chest wall. small right hydropneumothorac. Right sided chest tube. Scattered right mid to lower lobe infiltrate or atelectasis. 2.3X7.7X5.6cm right chest wall collection. right 6th and 7th rib fractures. * CT Chest w/ contrast (05/11/18): * Azithromycin and Rocephin were discontinued on 04/15/18 * Zosyn 3.375 gm IV Q6H (04/15/18 through 04/16/18) * Tamiflu 75 mg PO 2x/day (04/14/18 through 04/19/18) * Gentamicin 80mg IV Q12H (04/21/18 through 04/25/18) * Micafungin 100mg IV Q24H (04/23/18 through 04/27/18) * Clindamycin 900 mg IV Q8H (04/16/18 through 04/27/18) * Amikacin 500mg IVPB Q12H (04/25/18 through 04/30/18) Current IV Abx: * Augmentin 875 BID PO for 2 days 2). Acute Respiratory Failure secondary to Pneumonia/Empyema Assessment/Plan * Patient was intubated and placed on vent on evening 04/15/18 after he started to have DTs * Patient was on Vent from admission through 04/28/18 * Patient is extubated and stabilized from the ICU to the general medical floor. 3). Alcohol Withdrawal DTs Assessment/Plan * MVI tab PO daily * Vitamin B1 tab PO daily * Folic Acid 1 tab PO daily * Social work: alcohol anonymous 4). Bilateral Perinephric Stranding (resolved) As seen on CT Abdomen/Pelvis * UA shows NEGATIVE Nitrate, Ketones, and LE * Repeat urine cultures are negative * While intubated did have roman but is now using urinal 5). Alcohol Abuse * Patient revealed 04/14/18 that he drank shots and multiple beers twice a week but told overnight team at time of admission that he did this 5x per week. * Last drink was this past Friday04/10/18 as per patient * MVI tab PO daily * Vitamin B1 tab PO daily * Folic Acid 1 tab PO daily 6). Hyponatremia (resolved) * Likely SIADH * TSH and T4 are normal * Morning Cortisol normal * Triglycerides normal * Urine Osm was high * Urine Na was 35 7). Tachycardia * continue to monitor * possible secondary to pain recent cardiothoracic surgery and now with right knee pain * Surgeon recommends against therapeutic lovenox in regards to prior cephalic vein thrombosis; patient is on scheduled Motrin for treatment of cephalic vein thrombosis 8). Elevated LFTs and Hepatic Parenchymal Disease (as seen CT Abdomen) Likely secondary to suspected alcohol abuse * Hepatitis Panel negative * HIV negative * UDS negative * On CT scan noted hepatomegaly * Normalized 9). Hypokalemia resolved 10).Hypomagnesemia resolved 11). Constipation (resolved) * continue to monitor 12) Bilateral Cephalic Vein Thrombosises * Patient was on therapeutic lovenox 100mg subq12 Hr held prior to OR 04/23/18 * As these are NOT DVTS, therapeutic lovenox was discontinued * Motrin 400mg PO6H changed from PRN for fever to scheduled for treatment of superficial vein thrombosis. 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 Burton, consulted. Recommendations appreciated 14) Anemia 2/2 to alcohol abuse resolved 15). Prophylaxis * DVT risk score of 2 based upon Age and diagnosis of Sepsis: Lovenox 40mg subqdaily Bilateral SCDs * Extubated * Lactobacillus PO 2x/day * Lovenox 40mg subdaily * TLC placed on 04/22/18 * PT/OT Disposition: chest tube management per cardiothoracic surgery. Patient is on IV abx to cover for empyema secondary to aspiration pneumonia. Pt to have xray of right knee, and orthopedic consult for effusion. <Franki Nguyen - Last Filed: 05/13/18 18:56> Objective - Vital Signs/Intake and Output Vital Signs (last 24 hours): Temp Pulse Resp BP Pulse Ox 98.3 F 104 H 20 111/72 95 05/13/18 15:00 05/13/18 15:00 05/13/18 15:00 05/13/18 15:00 05/13/18 15:00 Intake and Output: 05/13/18 05/13/18 06:59 18:59 Intake Total 510 350 Output Total 760 660 Balance -250 -310 - Medications Medications: Current Medications Albuterol/Ipratropium (Duoneb 3 Mg/0.5 Mg (3 Ml) Ud) 3 ml INH RQ6 [facility] Last Admin: 05/13/18 13:39 Dose: 3 ml Amoxicillin/Clavulanate Potassium (Augmentin 875 Mg-125 Mg Tab) 1 tab PO Q12H [facility]; Protocol Last Admin: 05/13/18 16:07 Dose: 1 tab Folic Acid (Folic Acid) 1 mg PO DAILY [facility] Last Admin: 05/13/18 09:26 Dose: 1 mg Indomethacin (Indocin) 25 mg PO BID [facility] Stop: 05/16/18 18:00 Last Admin: 05/13/18 17:23 Dose: 25 mg Lactobacillus Acidophilus (Lactobacillus) 1 cap PO BID [facility] Last Admin: 05/13/18 17:24 Dose: 1 cap Multivitamins (Hexavitamin) 1 tab PO DAILY [facility] Last Admin: 05/13/18 09:26 Dose: 1 tab Pantoprazole Sodium (Protonix Ec Tab) 40 mg PO DAILY [facility] Last Admin: 05/13/18 09:26 Dose: 40 mg Sennosides (Senokot Tab) 8.6 mg PO BID PRN PRN Reason: Constipation Last Admin: 05/01/18 09:24 Dose: 8.6 mg Thiamine HCl (Vitamin B1 Tab) 100 mg PO DAILY [facility] Last Admin: 05/13/18 09:26 Dose: 100 mg Tramadol HCl (Ultram) 25 mg PO TID PRN PRN Reason: Pain, moderate (4-7) Last Admin: 05/13/18 17:24 Dose: 25 mg - Labs Labs: 05/13/18 11:38 05/13/18 13:46 PT 13.7 SECONDS (9.7-12.2) H 04/24/18 06:26 INR 1.3 04/24/18 06:26 APTT 42 SECONDS (21-34) H 04/24/18 06:26 Attending/Attestation - Attestation I have personally seen and examined this patient.: Yes I have fully participated in the care of the patient.: Yes I have reviewed all pertinent clinical information, including history, physical exam and plan: Yes Notes (Text): 05/13/18 18:53 Patient was seen and examined at 2:00 PM Care of this patient was gone over in detail with resident Dr. Valdez. Also on ROS: Complained of some mild soreness at the posterior chest tube insertion site Occasional cough productive of light yellow material Also on Exam: Some rales were heard on the right basilar area Right Knee edema has decreased as per patient and there is no tenderness to palpation and no erythema or warmth NO edema noted on the Right Leg Franki Nguyen D.O.
[2018-05-13 11:44] LABS: BASO # 0.1 K/uL (0.0-0.2); BASO % 0.9 % (0.0-2.0); EOS # 0.2 K/uL (0.0-0.7); EOS % 2.8 % (0.0-4.0); HEMOGLOBIN 11.1 g/dL (12.0-18.0); MEAN CELL VOLUME 88.5 fL (80.0-94.0); MEAN CORPUSCULAR HEMOGLOBIN 28.7 pg (27.0-31.0); MEAN CORPUSCULAR HGB CONC 32.4 g/dL (33.0-37.0); MEAN PLATELET VOLUME 8.4 fL (7.2-11.7); MONO # 0.5 K/uL (0.0-0.8); MONO % 7.3 % (0.0-10.0); NEUT # 4.9 K/uL (1.8-7.0); NRBC % 0.1 % (0.0-2.0); RBC 3.87 Mil/uL (4.40-5.90); RED CELL DISTRIBUTION WIDTH 14.1 % (11.5-14.5); WHITE BLOOD COUNT 6.7 K/uL (4.8-10.8)
[2018-05-13 14:10] LABS: ALB/GLOB RATIO 0.8 (1.0-2.1); ALBUMIN 3.3 g/dL (3.5-5.0); ALT/SGPT 89 U/L (21-72); AST/SGOT 63 U/L (17-59); BLOOD UREA NITROGEN 12 mg/dL (9-20); CALCIUM 8.9 mg/dl (8.6-10.4); GFR NON-AFRICAN AMERICAN > 60; LIPASE 170 U/L (23-300)
[2018-05-13 22:35] LABS: GLUCOSE,SYNOVIAL FLUID 50 mg/dL
[2018-05-13 22:35] LABS: URIC ACID SYNOVIAL FLUID 3.4 mg/dL (<8.0)
--- NOTE | 2018-05-13 23:16 | CP.PCM.PN ---
Subjective - Date & Time of Evaluation Date of Evaluation: 05/13/18 Time of Evaluation: 07:00 - Subjective Subjective: THORACIC SURGERY PROGRESS NOTE FOR DR. HERNANDEZ Patient seen and examined at bedside. Pt has no complaints. Denies CP or SOB. Chest tube had 70cc output over past 24 hours. Chest tube removed. Objective - Vital Signs/Intake and Output Vital Signs (last 24 hours): Temp Pulse Resp BP Pulse Ox 98.3 F 104 H 20 111/72 95 05/13/18 15:00 05/13/18 15:00 05/13/18 15:00 05/13/18 15:00 05/13/18 15:00 Intake and Output: 05/13/18 05/14/18 18:59 06:59 Intake Total 350 Output Total 660 Balance -310 - Medications Medications: Current Medications Albuterol/Ipratropium (Duoneb 3 Mg/0.5 Mg (3 Ml) Ud) 3 ml INH RQ6 [facility] Last Admin: 05/13/18 20:00 Dose: 3 ml Amoxicillin/Clavulanate Potassium (Augmentin 875 Mg-125 Mg Tab) 1 tab PO Q12H [facility]; Protocol Last Admin: 05/13/18 16:07 Dose: 1 tab Folic Acid (Folic Acid) 1 mg PO DAILY [facility] Last Admin: 05/13/18 09:26 Dose: 1 mg Indomethacin (Indocin) 25 mg PO BID [facility] Stop: 05/16/18 18:00 Last Admin: 05/13/18 17:23 Dose: 25 mg Lactobacillus Acidophilus (Lactobacillus) 1 cap PO BID [facility] Last Admin: 05/13/18 17:24 Dose: 1 cap Multivitamins (Hexavitamin) 1 tab PO DAILY [facility] Last Admin: 05/13/18 09:26 Dose: 1 tab Pantoprazole Sodium (Protonix Ec Tab) 40 mg PO DAILY [facility] Last Admin: 05/13/18 09:26 Dose: 40 mg Sennosides (Senokot Tab) 8.6 mg PO BID PRN PRN Reason: Constipation Last Admin: 05/01/18 09:24 Dose: 8.6 mg Thiamine HCl (Vitamin B1 Tab) 100 mg PO DAILY [facility] Last Admin: 05/13/18 09:26 Dose: 100 mg Tramadol HCl (Ultram) 25 mg PO TID PRN PRN Reason: Pain, moderate (4-7) Last Admin: 05/13/18 17:24 Dose: 25 mg - Labs Labs: 05/13/18 11:38 05/13/18 13:46 PT 13.7 SECONDS (9.7-12.2) H 04/24/18 06:26 INR 1.3 04/24/18 06:26 APTT 42 SECONDS (21-34) H 04/24/18 06:26 - Constitutional Appears: Non-toxic, No Acute Distress - Respiratory Exam Respiratory Exam: NORMAL BREATHING PATTERN. absent: Respiratory Distress Additional comments: Right chest tube in place on suction with 70cc serosanguinous output over past 24 hours. No air leak. - Cardiovascular Exam Cardiovascular Exam: +S1, +S2 - GI/Abdominal Exam GI & Abdominal Exam: Soft. absent: Distended, Tenderness - Neurological Exam Neurological Exam: Alert, Awake - Psychiatric Exam Psychiatric exam: Normal Affect, Normal Mood Assessment and Plan - Assessment and Plan (Free Text) Assessment: 43M s/p right thoracotomy, with evacuation of empyema, POD#[id number] Plan: - Chest tube removed today - Post pull CXR - no pneumothorax - Do not remove dressing for 48 hours after removal of chest tube. May reinforce only - Discussed plan with Dr. Susana Duffy PGY-4
[2018-05-14] MEDS: Albuterol-Ipratrop 3 mg / 0.5 (3 ml) UD INH SCH ×4 (01:14→19:11)
[2018-05-14] MEDS: Amoxicillin-Clav 875-125 mg Tab PO SCH ×2 (04:40→17:30)
[2018-05-14 06:43] LABS: BASO % 0.9 % (0.0-2.0); EOS # 0.3 K/uL (0.0-0.7); EOS % 4.3 % (0.0-4.0); HEMOGLOBIN 10.3 g/dL (12.0-18.0); LYMPH # 0.9 K/uL (1.0-4.3); LYMPH % 15.3 % (20.0-40.0); MEAN CELL VOLUME 87.1 fL (80.0-94.0); MEAN CORPUSCULAR HEMOGLOBIN 28.3 pg (27.0-31.0); MEAN CORPUSCULAR HGB CONC 32.5 g/dL (33.0-37.0); MEAN PLATELET VOLUME 7.4 fL (7.2-11.7); MONO # 0.5 K/uL (0.0-0.8); MONO % 9.1 % (0.0-10.0); NEUT # 4.1 K/uL (1.8-7.0); NEUT % 70.4 % (50.0-75.0); RBC 3.65 Mil/uL (4.40-5.90); RED CELL DISTRIBUTION WIDTH 14.2 % (11.5-14.5); WHITE BLOOD COUNT 5.8 K/uL (4.8-10.8)
[2018-05-14 07:03] LABS: ALB/GLOB RATIO 0.8 (1.0-2.1); ALBUMIN 3.2 g/dL (3.5-5.0); ALT/SGPT 81 U/L (21-72); AST/SGOT 53 U/L (17-59); BLOOD UREA NITROGEN 12 mg/dL (9-20); CALCIUM 8.9 mg/dl (8.6-10.4); GFR NON-AFRICAN AMERICAN > 60
--- NOTE | 2018-05-14 07:38 | CP.PCM.PN ---
<Edi Valdez - Last Filed: 05/14/18 17:47> Subjective - Date & Time of Evaluation Date of Evaluation: 05/14/18 Time of Evaluation: 07:38 - Subjective Subjective: HOSPITALIST SERVICE Pt s/e at bedside, reports resolution of RUQ abd pain, feels minor pain in r knee, denies any reflux symptoms, denies pain in chest tube wound site. Pt denies cp sob fc nv or any other acute events overnight Objective - Vital Signs/Intake and Output Vital Signs (last 24 hours): Temp Pulse Resp BP Pulse Ox 98.0 F 101 H 20 102/68 97 05/13/18 23:00 05/13/18 23:00 05/13/18 23:00 05/13/18 23:00 05/13/18 23:00 - Medications Medications: Current Medications Albuterol/Ipratropium (Duoneb 3 Mg/0.5 Mg (3 Ml) Ud) 3 ml INH RQ6 [facility] Last Admin: 05/14/18 01:14 Dose: Not Given Amoxicillin/Clavulanate Potassium (Augmentin 875 Mg-125 Mg Tab) 1 tab PO Q12H [facility]; Protocol Last Admin: 05/14/18 04:40 Dose: 1 tab Folic Acid (Folic Acid) 1 mg PO DAILY [facility] Last Admin: 05/13/18 09:26 Dose: 1 mg Indomethacin (Indocin) 25 mg PO BID [facility] Stop: 05/16/18 18:00 Last Admin: 05/13/18 17:23 Dose: 25 mg Lactobacillus Acidophilus (Lactobacillus) 1 cap PO BID [facility] Last Admin: 05/13/18 17:24 Dose: 1 cap Multivitamins (Hexavitamin) 1 tab PO DAILY [facility] Last Admin: 05/13/18 09:26 Dose: 1 tab Pantoprazole Sodium (Protonix Ec Tab) 40 mg PO DAILY [facility] Last Admin: 05/13/18 09:26 Dose: 40 mg Sennosides (Senokot Tab) 8.6 mg PO BID PRN PRN Reason: Constipation Last Admin: 05/01/18 09:24 Dose: 8.6 mg Thiamine HCl (Vitamin B1 Tab) 100 mg PO DAILY [facility] Last Admin: 05/13/18 09:26 Dose: 100 mg Tramadol HCl (Ultram) 25 mg PO TID PRN PRN Reason: Pain, moderate (4-7) Last Admin: 05/13/18 17:24 Dose: 25 mg - Labs Labs: 05/14/18 06:38 05/14/18 06:38 PT 13.7 SECONDS (9.7-12.2) H 04/24/18 06:26 INR 1.3 04/24/18 06:26 APTT 42 SECONDS (21-34) H 04/24/18 06:26 - Additional Findings Additional findings: - Head Exam Head Exam: ATRAUMATIC, NORMAL INSPECTION - Eye Exam Eye Exam: EOMI, Normal appearance - ENT Exam ENT Exam: Mucous Membranes Moist - Neck Exam Neck Exam: Full ROM - Respiratory Exam Respiratory Exam: Chest Wall Tenderness (to the right, near chest tube insertion site. area is clean dry, no signs of infection of bleeding/hematoma), Decreased Breath Sounds (on the right), Rhonchi (on the right), NORMAL BREATHING PATTERN. absent: Wheezes, Respiratory Distress Additional comments: Posterior chest tube No leak noted - Cardiovascular Exam Cardiovascular Exam: Tachycardia, REGULAR RHYTHM, +S1, +S2 - GI/Abdominal Exam GI & Abdominal Exam: Soft, Normal Bowel Sounds. absent: Guarding, Rigid, Tenderness - Extremities Exam Extremities Exam: Normal Capillary Refill, Normal Inspection, Tenderness (moderate right knee tenderness with suprapatellar effusion, warm to touch). absent: Calf Tenderness, Full ROM (limited flexion of knees bilaterally), Joint Swelling, Pedal Edema - Neurological Exam Neurological Exam: Alert - Psychiatric Exam Psychiatric exam: Normal Affect, Normal Mood - Skin Skin Exam: Dry, Normal Color, Warm Assessment and Plan - Assessment and Plan (Free Text) Assessment: 43M admitted for alcohol withdrawl, aspiration pneumonia, infective empyema s/p thoracotomy w/ decortication on 04/24 w/ Dr Meza, chest tubes removed 05/13 1). Sepsis Secondary to Right Middle and Lower Lobe Pneumonia and Suspected Empyema * Infectious Disease (Dr. Spring) on case * Cardiothoracic Surgery Dr. Meza: Chest tube placed 04/18/18 * Post operative note April 24, 2018. Patient underwent a right thoracotomy, decortication of the right lung, drainage of the right lung infection/exudates, right middle inferior lobe biopsy performed, right-sided chest tube placement x2. Specimen noted portion of the middle lobe of the right lobe, portion of the lower lobe on right lung, right lung fluid/hematoma. * Lung Tissue Culture 04/24/18 is negative to date * Pleural Fluid Culture 04/24/18 is negative to date * Pleural Fluid Fungal Culture 04/24/18 is negative * Pleural Fluid Mycobacterium Culture 04/24/18 shows NO AFB * Chest tube 1 removed 05/08/18 (anterior-lateral): Chest tube #2 removed 05/13/18 (posterior) * Procalcitonin: 1.64--> <0.05 * Criteria: Leukocytosis, fever, pneumonia/empyema * CT chest from Apr 15, 2018. Cardiomegaly. Trace pericardial effusion. Coronary artery calcifications. Extensive consolidation throughout the right hemithorax with relative sparing of the right lung apex. Small loculated right-sided pleural effusion measuring approximately 2.1 cm in maximum depth superinfection is not excluded. Mild left basal bibasilar atelectasis. Left hemithorax. Otherwise grossly clear. Limited visualization of the upper abdomen reveals hepatomegaly. Diffuse hepatic steatosis with 2 more focal hypodense regions favored to represent focal fatty infiltration. * CT chest from Apr 17 was suboptimal. No evidence of central pulmonary embolus. Interval worsening of airspace consolidation at the right lung contains foci of low-attenuation possible fluid collection since prior study interval worsening of the right-sided multiple likely request for sacral pleural effusion. * CT chest from 04/20/2018 noted for decreased right pleural effusion. Right chest tube. Extensive right lower lobe atelectasis with right middle lobe and left lower lobe segmental atelectasis. Small left pleural effusion. No pneumothorax. Endotracheal tube and nasogastric tube noted. * Chest xray (04/25/18): postop changes are slowly resolving at the right hemithorax as post decorticulation previously. Tube and catheters unchanged in position with right basilar atectasis favored over infiltrate. Mild right pleural effusion is noted including the minor fissue. Limited left perihilar opacity density noted. * CT Chest 05/04/18: suture material along the right lateral chest wall. small right hydropneumothorac. Right sided chest tube. Scattered right mid to lower lobe infiltrate or atelectasis. 2.3X7.7X5.6cm right chest wall collection. ri ght 6th and 7th rib fractures. * CT Chest w/ contrast (05/11/18): * Azithromycin and Rocephin were discontinued on 04/15/18 * Zosyn 3.375 gm IV Q6H (04/15/18 through 04/16/18) * Tamiflu 75 mg PO 2x/day (04/14/18 through 04/19/18) * Gentamicin 80mg IV Q12H (04/21/18 through 04/25/18) * Micafungin 100mg IV Q24H (04/23/18 through 04/27/18) * Clindamycin 900 mg IV Q8H (04/16/18 through 04/27/18) * Amikacin 500mg IVPB Q12H (04/25/18 through 04/30/18) Current IV Abx: * Augmentin 875 BID PO for 3/ days 2). Acute Respiratory Failure secondary to Pneumonia/Empyema Assessment/Plan * Patient was intubated and placed on vent on evening 04/15/18 after he started to have DTs * Patient was on Vent from admission through 04/28/18 * Patient is extubated and stabilized from the ICU to the general medical floor. 3). Alcohol Withdrawal DTs Assessment/Plan * MVI tab PO daily * Vitamin B1 tab PO daily * Folic Acid 1 tab PO daily * Social work: alcohol anonymous 4). Bilateral Perinephric Stranding (resolved) As seen on CT Abdomen/Pelvis * UA shows NEGATIVE Nitrate, Ketones, and LE * Repeat urine cultures are negative * While intubated did have roman but is now using urinal 5). Alcohol Abuse * Patient revealed 04/14/18 that he drank shots and multiple beers twice a week but told overnight team at time of admission that he did this 5x per week. * Last drink was this past Friday04/10/18 as per patient * MVI tab PO daily * Vitamin B1 tab PO daily * Folic Acid 1 tab PO daily 6). Hyponatremia (resolved) * Likely SIADH * TSH and T4 are normal * Morning Cortisol normal * Triglycerides normal * Urine Osm was high * Urine Na was 35 7). Tachycardia * continue to monitor * possible secondary to pain recent cardiothoracic surgery and now with right knee pain * Surgeon recommends against therapeutic lovenox in regards to prior cephalic vein thrombosis; patient is on scheduled Motrin for treatment of cephalic vein thrombosis 8). Elevated LFTs and Hepatic Parenchymal Disease (as seen CT Abdomen) Likely secondary to suspected alcohol abuse * Hepatitis Panel negative * HIV negative * UDS negative * On CT scan noted hepatomegaly * Normalized 9). Hypokalemia resolved 10).Hypomagnesemia resolved 11). Constipation (resolved) * continue to monitor 12) Bilateral Cephalic Vein Thrombosises * Patient was on therapeutic lovenox 100mg subq12 Hr held prior to OR 04/23/18 * As these are NOT DVTS, therapeutic lovenox was discontinued * Motrin 400mg PO6H changed from PRN for fever to scheduled for treatment of superficial vein thrombosis. 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 Burton, consulted. Recommendations appreciated 14) Anemia 2/2 to alcohol abuse resolved 15). Prophylaxis * DVT risk score of 2 based upon Age and diagnosis of Sepsis: Lovenox 40mg subqdaily Bilateral SCDs * Extubated * Lactobacillus PO 2x/day * Lovenox 40mg subdaily * TLC placed on 04/22/18 * PT/OT Disposition: chest tube removed, pt is to get wound dressings changed, souture removal instructions tmrw, dc home on po augmentin in AM <Franki Nguyen - Last Filed: 05/15/18 18:28> Objective - Vital Signs/Intake and Output Vital Signs (last 24 hours): Temp Pulse Resp BP Pulse Ox 97.8 F 98 H 20 112/70 97 05/15/18 07:00 05/15/18 07:00 05/15/18 07:00 05/15/18 07:00 05/15/18 00:00 Intake and Output: 05/15/18 05/15/18 06:59 18:59 Intake Total 400 Balance 400 - Labs Labs: 05/15/18 07:09 05/15/18 07:09 PT 13.7 SECONDS (9.7-12.2) H 04/24/18 06:26 INR 1.3 04/24/18 06:26 APTT 42 SECONDS (21-34) H 04/24/18 06:26 Attending/Attestation - Attestation I have personally seen and examined this patient.: Yes I have fully participated in the care of the patient.: Yes I have reviewed all pertinent clinical information, including history, physical exam and plan: Yes Notes (Text): 05/15/18 18:27 This is a late entry. Care of this patient was gone over in detail with resident Dr. Valdez. Franki Nguyen D.O.
--- NOTE | 2018-05-14 08:23 | RAD ---
Date of service: 05/13/2018 HISTORY: s/p chest tube removal COMPARISON: 05/13/2018. FINDINGS: Interval removal of the right chest tube LUNGS: There is low lung volume on the right. There is ill-defined airspace disease in the right lower lobe. The left lung is well inflated and clear. PLEURA: Residual small loculated right pleural effusion. No left pleural effusion. No pneumothorax. CARDIOVASCULAR: The heart is normal in size. No aortic atherosclerotic calcifications present. OSSEOUS STRUCTURES: Within normal limits for the patient's age. VISUALIZED UPPER ABDOMEN: Normal. OTHER FINDINGS: Chronic elevation of the right hemidiaphragm. IMPRESSION: Status post removal of the right chest tube, small residual loculated right pleural effusion. Low lung volume on the right. Ill-defined airspace disease in the right lower lobe may represent atelectasis/pneumonia. Follow-up is advised.
--- NOTE | 2018-05-14 08:49 | CP.PCM.PN ---
Subjective - Date & Time of Evaluation Date of Evaluation: 05/14/18 Time of Evaluation: 07:00 - Subjective Subjective: CT Surgery: Dr. Meza Pt seen and examined. No acute overnight events. States he feels ok this morning and denies pain or SOB. Tolerating diet, ambulating, having BMs. Denies chest pain or SOB. Objective - Vital Signs/Intake and Output Vital Signs (last 24 hours): Temp Pulse Resp BP Pulse Ox 98.2 F 113 H 20 115/75 98 05/14/18 07:30 05/14/18 07:30 05/14/18 07:30 05/14/18 07:30 05/14/18 07:30 - Medications Medications: Current Medications Albuterol/Ipratropium (Duoneb 3 Mg/0.5 Mg (3 Ml) Ud) 3 ml INH RQ6 [facility] Last Admin: 05/14/18 07:39 Dose: 3 ml Amoxicillin/Clavulanate Potassium (Augmentin 875 Mg-125 Mg Tab) 1 tab PO Q12H [facility]; Protocol Last Admin: 05/14/18 04:40 Dose: 1 tab Folic Acid (Folic Acid) 1 mg PO DAILY [facility] Last Admin: 05/13/18 09:26 Dose: 1 mg Indomethacin (Indocin) 25 mg PO BID [facility] Stop: 05/16/18 18:00 Last Admin: 05/13/18 17:23 Dose: 25 mg Lactobacillus Acidophilus (Lactobacillus) 1 cap PO BID [facility] Last Admin: 05/13/18 17:24 Dose: 1 cap Multivitamins (Hexavitamin) 1 tab PO DAILY [facility] Last Admin: 05/13/18 09:26 Dose: 1 tab Pantoprazole Sodium (Protonix Ec Tab) 40 mg PO DAILY [facility] Last Admin: 05/13/18 09:26 Dose: 40 mg Sennosides (Senokot Tab) 8.6 mg PO BID PRN PRN Reason: Constipation Last Admin: 05/01/18 09:24 Dose: 8.6 mg Thiamine HCl (Vitamin B1 Tab) 100 mg PO DAILY [facility] Last Admin: 05/13/18 09:26 Dose: 100 mg Tramadol HCl (Ultram) 25 mg PO TID PRN PRN Reason: Pain, moderate (4-7) Last Admin: 05/13/18 17:24 Dose: 25 mg - Labs Labs: 05/14/18 06:38 02/21/19 06:38 PT 13.7 SECONDS (9.7-12.2) H 04/24/18 06:26 INR 1.3 04/24/18 06:26 APTT 42 SECONDS (21-34) H 04/24/18 06:26 - Constitutional Appears: Well, No Acute Distress - Head Exam Head Exam: ATRAUMATIC, NORMOCEPHALIC - Eye Exam Eye Exam: Normal appearance - ENT Exam ENT Exam: Mucous Membranes Moist - Respiratory Exam Respiratory Exam: NORMAL BREATHING PATTERN - Cardiovascular Exam Cardiovascular Exam: Tachycardia Additional comments: thoracotomy incision healing well. CT dressing in place - GI/Abdominal Exam GI & Abdominal Exam: Soft. absent: Tenderness - Neurological Exam Neurological Exam: Alert, Awake, Oriented x3 - Skin Skin Exam: Dry, Warm Assessment and Plan - Assessment and Plan (Free Text) Assessment: 43M s/p R thoracotomy with decrotication; POD#20 Plan: - no further surgical intervention - pt can follow up with PMD as needed - ok to remove chest tube dressing tomorrow - d/w Dr. Susana Castro
[2018-05-14] MEDS: Multiple Vitamins Tab PO SCH (09:30)
[2018-05-14] MEDS: Lactobacillus Acidophilus 500 MU Cap PO SCH ×2 (09:38→17:30)
[2018-05-14] MEDS: Pantoprazole 40 mg EC Tab PO SCH (09:38)
[2018-05-14] MEDS ORDERED: MethylPREDNISolone Depo 40 mg/ml Inj IAA ONE (11:30)
--- NOTE | 2018-05-14 11:42 | CP.PCM.PN ---
Subjective - Date & Time of Evaluation Date of Evaluation: 05/14/18 Time of Evaluation: 11:00 - Subjective Subjective: Patient states pain is improving. Doing well with PT. Denies pain in other joints. Objective - Vital Signs/Intake and Output Vital Signs (last 24 hours): Temp Pulse Resp BP Pulse Ox 98.2 F 113 H 20 115/75 98 05/14/18 07:30 05/14/18 07:30 05/14/18 07:30 05/14/18 07:30 05/14/18 07:30 - Medications Medications: Current Medications Albuterol/Ipratropium (Duoneb 3 Mg/0.5 Mg (3 Ml) Ud) 3 ml INH RQ6 [facility] Last Admin: 05/14/18 07:39 Dose: 3 ml Amoxicillin/Clavulanate Potassium (Augmentin 875 Mg-125 Mg Tab) 1 tab PO Q12H [facility]; Protocol Last Admin: 05/14/18 04:40 Dose: 1 tab Bupivacaine HCl (Marcaine 0.5%) 5 ml IJ ONCE ONE Stop: 05/14/18 11:26 Folic Acid (Folic Acid) 1 mg PO DAILY [facility] Last Admin: 05/14/18 09:38 Dose: 1 mg Indomethacin (Indocin) 25 mg PO BID [facility] Stop: 05/16/18 18:00 Last Admin: 05/14/18 09:41 Dose: 25 mg Lactobacillus Acidophilus (Lactobacillus) 1 cap PO BID [facility] Last Admin: 05/14/18 09:38 Dose: 1 cap Multivitamins (Hexavitamin) 1 tab PO DAILY [facility] Last Admin: 05/14/18 09:30 Dose: 1 tab Pantoprazole Sodium (Protonix Ec Tab) 40 mg PO DAILY [facility] Last Admin: 05/14/18 09:38 Dose: 40 mg Sennosides (Senokot Tab) 8.6 mg PO BID PRN PRN Reason: Constipation Last Admin: 05/14/18 09:38 Dose: 8.6 mg Thiamine HCl (Vitamin B1 Tab) 100 mg PO DAILY [facility] Last Admin: 05/14/18 09:38 Dose: 100 mg Tramadol HCl (Ultram) 25 mg PO TID PRN PRN Reason: Pain, moderate (4-7) Last Admin: 05/13/18 17:24 Dose: 25 mg - Labs Labs: 05/14/18 06:38 05/14/18 06:38 PT 13.7 SECONDS (9.7-12.2) H 04/24/18 06:26 INR 1.3 04/24/18 06:26 APTT 42 SECONDS (21-34) H 04/24/18 06:26 - Constitutional Appears: Well, No Acute Distress - Head Exam Head Exam: ATRAUMATIC - Respiratory Exam Respiratory Exam: NORMAL BREATHING PATTERN - Cardiovascular Exam Additional comments: +DP/PT pulses - Extremities Exam Additional comments: moderate right knee effusion, not warm no erythema - Neurological Exam Neuro motor strength exam: Left Lower Extremity: 5, Right Lower Extremity: 5 - Psychiatric Exam Psychiatric exam: Normal Affect, Normal Mood - Skin Skin Exam: Dry, Intact, Normal Color, Warm Assessment and Plan (1) Pseudogout of right knee Assessment & Plan: cultures prelim negative still will knee effusion, steroid injection indicated patient offered steroid injection, agrees to injection Risks, benefits, alternatives of knee arthrocentesis and aspiration were explained in detail, patient verbally consented to procedure. The patients right knee was prepped in the usual sterile fashion with chloroprep. A 21-gauge 1.5 inch needle was inserted into the knee joint from a superior lateral approach. Through this needle 13 cc of clear yellow synovial fluid was aspirated, then a solution of 40mg Depo-medrol and 3cc 0.5% Marcaine was injected. The needle was removed, and sterile dressing, ember bandage, and ice were applied to knee. Patient tolerated the procedure well. There were no complications. cont PT/OT VTE proph f/u final cultures orthopedically stable d/w Dr. Burton, agrees with above Status: Acute Procedures Attestation:: I certify that I have explained the specified Operation(s) or Procedure(s), risks, benefits and reasonable alternatives to the Patient and/or other person responsible. The opportunity was given to ask questions and all questions answered - Joint Aspiration/Injection Joint #1 Consent Obtained: Verbal Consent Time Out Performed: Yes Side of Body: Right Joint Aspirated: Knee Skin Prep: Chlorprep Needle Size Used: 22 G Fluid Clarity: Clear (yellow, normal) Total Fluid Removed (mls): 13 Medication Injected: Methylprednisolone (40mg depomedrol and 3 cc 0.5% marcaine) Patient Tolorated Procedure: Well Complications: None
[2018-05-14] MEDS ORDERED: Bupivacaine 0.5% Inj(30mL) IJ ONE (11:45)
--- NOTE | 2018-05-14 14:28 | RAD ---
Date of service: 05/14/2018 HISTORY: Right-sided chest tube COMPARISON: Comparison made with prior study 2018 FINDINGS: Right lower lobe of consolidation LUNGS: Right lower lobe opacity likely representing some combination of moderately large effusion atelectasis and infiltrate. In addition, there also appears to be a small pneumothorax; hydropneumothorax PLEURA: As above.. CARDIOVASCULAR: No aortic atherosclerotic calcification present. Normal cardiac size. No pulmonary vascular congestion. OSSEOUS STRUCTURES: No significant abnormalities. VISUALIZED UPPER ABDOMEN: Normal. OTHER FINDINGS: None. IMPRESSION: Right lower lobe opacity likely representing some combination of moderately large effusion atelectasis and infiltrate. In addition, there also appears to be a small pneumothorax; hydropneumothorax
[2018-05-14 16:10] VITALS: O2SAT 97
[2018-05-15] MEDS: Albuterol-Ipratrop 3 mg / 0.5 (3 ml) UD INH SCH ×2 (01:19→08:35)
[2018-05-15] MEDS: Amoxicillin-Clav 875-125 mg Tab PO SCH (04:36)
[2018-05-15 07:33] LABS: ALB/GLOB RATIO 0.8 (1.0-2.1); ALBUMIN 3.4 g/dL (3.5-5.0); ALT/SGPT 61 U/L (21-72); AST/SGOT 33 U/L (17-59); BLOOD UREA NITROGEN 10 mg/dL (9-20); CALCIUM 9.1 mg/dl (8.6-10.4); GFR NON-AFRICAN AMERICAN > 60
[2018-05-15 07:56] LABS: BASO % 0.5 % (0.0-2.0); EOS % 0.1 % (0.0-4.0); HEMOGLOBIN 10.1 g/dL (12.0-18.0); LYMPH % 14.7 % (20.0-40.0); MEAN CELL VOLUME 86.9 fL (80.0-94.0); MEAN CORPUSCULAR HEMOGLOBIN 29.2 pg (27.0-31.0); MEAN CORPUSCULAR HGB CONC 33.6 g/dL (33.0-37.0); MEAN PLATELET VOLUME 8.1 fL (7.2-11.7); MONO # 0.5 K/uL (0.0-0.8); MONO % 7.4 % (0.0-10.0); NEUT # 5.5 K/uL (1.8-7.0); NEUT % 77.3 % (50.0-75.0); RBC 3.46 Mil/uL (4.40-5.90); WHITE BLOOD COUNT 7.1 K/uL (4.8-10.8)
[2018-05-15 08:11] VITALS: BP 112/70; PULSE 98; TEMP 97.8
--- NOTE | 2018-05-15 09:38 | CP.PCM.DIS ---
Provider - Provider Date of Admission: 04/13/18 23:11 Attending physician: Fredo Chavez MD Consults: 04/14/18 20:20 Infectious Disease Consult Routine Comment: Consulting Provider: Renea Spring Consulting Physician: Renea Spring Reason for Consult: Sepsis Secondary RML/RLL Pneumonia. Possible Aspiration 04/15/18 12:30 General Surgery Consult Routine Comment: Consulting Provider: Andres Meza Consulting Physician: Andres Meza Reason for Consult: Empyema 04/30/18 14:23 Psychiatry Consult Routine Comment: Consulting Provider: Hans Velasquez Consulting Physician: Hans Velasquez Reason for Consult: Episodes of Confusion S/P Sepsis. Hx Alcohol Abuse 05/10/18 18:15 Orthopedic Consult Routine Comment: Consulting Provider: Blane Burton Consulting Physician: Balne Burton Reason for Consult: right knee effusin, pain Time Spent in preparation of Discharge (in minutes): 45 Diagnosis - Discharge Diagnosis (1) Acute respiratory failure Status: Acute (2) Aspiration pneumonia Status: Acute (3) Empyema Status: Acute (4) Pseudogout of right knee Status: Acute Hospital Course - Lab Results Lab Results: Micro Results 05/11/18 14:36 Synovial Fluid Gram Stain - Final 05/11/18 14:36 Synovial Fluid Body Fluid Culture - Preliminary NO GROWTH AFTER 3 DAYS 05/11/18 14:36 Synovial Fluid Gram Stain - Final 05/11/18 14:36 Synovial Fluid Body Fluid Culture - Preliminary NO GROWTH AFTER 3 DAYS 05/11/18 14:36 Synovial Fluid Gram Stain - Final 05/11/18 14:36 Synovial Fluid Body Fluid Culture - Preliminary NO GROWTH AFTER 3 DAYS 04/24/18 19:10 Pleural Fluid Fungal Culture - Preliminary 04/24/18 Unknown Other: Please Indicate Fungal Culture - Preliminary 04/24/18 Unknown Lung Right Fungal Culture - Preliminary 04/24/18 19:10 Other: Please Indicate Fungal Culture - Preliminary 04/19/18 14:23 Bronchial Washings Gram Stain - Final 04/19/18 14:23 Bronchial Washings Bronchial Culture - Final NORMAL SAPROPHYTIC ALEXA 04/19/18 14:23 Bronchial Washings Fungal Culture - Preliminary NO FUNGUS GROWTH IN 3 WEEKS. 04/18/18 17:49 Pleural Fluid Anaerobic Culture - Final NO ANAEROBES ISOLATED. 04/18/18 17:49 Pleural Fluid Fungal Culture - Preliminary NO FUNGUS GROWTH IN 3 WEEKS. 04/19/18 14:23 Other: Please Indicate Mycobacterial Culture - Preliminary 04/24/18 Unknown Other: Please Indicate Mycobacterial Culture - Preliminary 04/24/18 Unknown Other: Please Indicate Mycobacterial Culture - Preliminary 04/24/18 19:10 Other: Please Indicate Mycobacterial Culture - Preliminary 04/18/18 17:49 Other: Please Indicate Mycobacterial Culture - Preliminary 05/01/18 18:58 Blood-Venous Blood Culture - Final NO GROWTH AFTER 5 DAYS 05/01/18 18:58 Blood-Venous Gram Stain - Final TEST NOT PERFORMED 05/01/18 18:58 Blood-Venous Blood Culture - Final NO GROWTH AFTER 5 DAYS 05/01/18 18:58 Blood-Venous Gram Stain - Final TEST NOT PERFORMED 04/25/18 19:30 Blood-Venous Blood Culture - Final NO GROWTH AFTER 5 DAYS 04/25/18 19:30 Blood-Venous Gram Stain - Final TEST NOT PERFORMED 04/25/18 19:00 Blood-Venous Blood Culture - Final NO GROWTH AFTER 5 DAYS 04/25/18 19:00 Blood-Venous Gram Stain - Final TEST NOT PERFORMED 04/24/18 19:10 Pleural Fluid Gram Stain - Final 04/24/18 19:10 Pleural Fluid Body Fluid Culture - Final No growth. 04/24/18 Unknown Lung Gram Stain - Final 04/24/18 Unknown Lung Tissue Culture - Final No Growth 04/21/18 17:04 Blood Blood Culture - Final NO GROWTH AFTER 5 DAYS 04/21/18 17:04 Blood Gram Stain - Final TEST NOT PERFORMED 04/21/18 15:00 Blood Blood Culture - Final NO GROWTH AFTER 5 DAYS 04/21/18 15:00 Blood Gram Stain - Final TEST NOT PERFORMED 04/24/18 Unknown Lung Gram Stain - Final 04/24/18 Unknown Lung Tissue Culture - Final No Growth 04/24/18 19:10 Other: Please Indicate Gram Stain - Final 04/24/18 19:10 Other: Please Indicate Tissue Culture - Final No Growth 04/21/18 17:04 Urine,Peña Urine Culture - Final No Growth (<1,000 CFU/ML) 04/18/18 17:49 Pleural Fluid Gram Stain - Final 04/18/18 17:49 Pleural Fluid Body Fluid Culture - Final No growth. 04/15/18 13:49 Thoracic Fluid Gram Stain - Final 04/15/18 13:49 Thoracic Fluid Body Fluid Culture - Final NO GROWTH AFTER 4 DAYS 04/17/18 01:07 Trachasp Gram Stain - Final 04/17/18 01:07 Trachasp Sputum Culture - Final No growth. 04/13/18 21:43 Blood Blood Culture - Final NO GROWTH AFTER 5 DAYS 04/13/18 21:43 Blood Gram Stain - Final TEST NOT PERFORMED 04/13/18 21:00 Blood Blood Culture - Final NO GROWTH AFTER 5 DAYS 04/13/18 21:00 Blood Gram Stain - Final TEST NOT PERFORMED 04/16/18 05:42 Urine,Catheterized Urine Culture - Final No Growth (<1,000 CFU/ML) 04/13/18 20:48 Urine Random Urine Culture - Final No Growth (<1,000 CFU/ML) 04/14/18 06:06 Nose MRSA Culture (Admit) - Final MRSA DETECTED Most Recent Lab Values WBC 7.1 K/uL (4.8-10.8) 05/15/18 07:09 RBC 3.46 Mil/uL (4.40-5.90) L 05/15/18 07:09 Hgb 10.1 g/dL (12.0-18.0) L 05/15/18 07:09 Hct 30.1 % (35.0-51.0) L 05/15/18 07:09 MCV 86.9 fL (80.0-94.0) 05/15/18 07:09 MCH 29.2 pg (27.0-31.0) 05/15/18 07:09 MCHC 33.6 g/dL (33.0-37.0) 05/15/18 07:09 RDW 14.0 % (11.5-14.5) 05/15/18 07:09 Plt Count 454 K/uL (130-400) H 05/15/18 07:09 MPV 8.1 fL (7.2-11.7) 05/15/18 07:09 Neut % (Auto) 77.3 % (50.0-75.0) H 05/15/18 07:09 Lymph % (Auto) 14.7 % (20.0-40.0) L 05/15/18 07:09 [place] % (Auto) 7.4 % (0.0-10.0) 05/15/18 07:09 Eos % (Auto) 0.1 % (0.0-4.0) 05/15/18 07:09 Baso % (Auto) 0.5 % (0.0-2.0) 05/15/18 07:09 Neut # (Auto) 5.5 K/uL (1.8-7.0) 05/15/18 07:09 Lymph # (Auto) 1.0 K/uL (1.0-4.3) 05/15/18 07:09 [place] # (Auto) 0.5 K/uL (0.0-0.8) 05/15/18 07:09 Eos # (Auto) 0.0 K/uL (0.0-0.7) 05/15/18 07:09 Baso # (Auto) 0.0 K/uL (0.0-0.2) 05/15/18 07:09 Neutrophils % (Manual) 76 % (50-75) H 04/30/18 05:49 Band Neutrophils % 4 % (0-2) H 04/30/18 05:49 Lymphocytes % (Manual) 9 % (20-40) L 04/30/18 05:49 Reactive Lymphs % 1 % (0-0) H 04/30/18 05:49 Monocytes % (Manual) 6 % (0-10) 04/30/18 05:49 Eosinophils % (Manual) 3 % (0-4) 04/30/18 05:49 Basophils % (Manual) 1 % (0-2) 04/30/18 05:49 Metamyelocytes % 1 % (0-0) H 04/19/18 05:50 Myelocytes % 1 % (0-0) H 04/17/18 05:15 Nucleated RBC % 1 % (0-0) H 04/16/18 18:29 Differential Comment 05/05/18 07:15 Toxic Granulation Present 04/19/18 05:50 Dohle Bodies Present 04/16/18 05:42 Platelet Estimate Slightly increased (NORMAL) H 04/30/18 05:49 Plt Clumps, EDTA Present 04/18/18 06:37 Large Platelets Present 04/24/18 16:12 Giant Platelets Present 04/19/18 05:50 RBC Morphology Normal 04/30/18 05:49 Polychromasia Slight 04/19/18 05:50 Hypochromasia (manual) Slight 04/29/18 08:59 Poikilocytosis (manual Slight 04/29/18 08:59 Anisocytosis (manual) Slight 04/29/18 08:59 Microcytosis (manual) Slight 04/24/18 16:12 Target Cells Slight 04/20/18 06:07 ESR 130 mm/hr (0-15) H 05/11/18 06:24 PT 13.7 SECONDS (9.7-12.2) H 04/24/18 06:26 INR 1.3 04/24/18 06:26 APTT 42 SECONDS (21-34) H 04/24/18 06:26 Puncture Site Rr 04/27/18 05:35 pCO2 48 mm/Hg (35-45) H 04/27/18 05:35 pO2 77 mm/Hg (80-100) L 04/27/18 05:35 HCO3 30.8 mmol/L (21-28) H 04/27/18 05:35 ABG pH 7.44 (7.35-7.45) 04/27/18 05:35 ABG Total CO2 34.1 mmol/L (22-28) H 04/27/18 05:35 ABG O2 Saturation 98.1 % (95-98) H 04/27/18 05:35 ABG Base Excess 7.5 mmol/L (-2.0-3.0) H 04/27/18 05:35 ABG Hemoglobin 9.6 g/dL (11.7-17.4) L 04/27/18 05:35 ABG Carboxyhemoglobin 1.7 % (0.5-1.5) H 04/27/18 05:35 POC ABG HHb (Measured) 1.9 % (0.0-5.0) 04/27/18 05:35 ABG Methemoglobin 0.7 % (0.0-3.0) 04/27/18 05:35 [place] Test Pos 04/27/18 05:35 ABG Potassium 4.0 mmol/L (3.6-5.2) 04/24/18 17:35 A-a O2 Difference 326.0 mm/Hg 04/27/18 05:35 Respiratory Index 4.2 04/27/18 05:35 Hgb O2 Saturation 95.7 % (95.0-98.0) 04/27/18 05:35 Sodium 141.0 mmol/l (132-148) 04/24/18 17:35 Chloride 111.0 mmol/L (98-107) H 04/24/18 17:35 Glucose 99 mg/dl (75-110) 04/24/18 17:35 Lactate 1.3 mmol/L (0.7-2.1) 04/24/18 17:35 Vent Mode Prvc 04/27/18 05:35 Mechanical Rate 18 04/27/18 05:35 FiO2 65.0 % 04/27/18 05:35 Tidal Volume 450 04/27/18 05:35 PEEP 8 04/27/18 05:35 Inspiratory BiPAP 18 04/14/18 20:08 Expiratory BiPAP 6 04/14/18 20:08 Crit Value Called To Dr sandoval 04/18/18 12:56 Crit Value Called By Luis Fernando silverman crt 04/18/18 12:56 Crit Value Read Back Y 04/18/18 12:56 Blood Gas Notified Time 1300 04/18/18 12:56 Sodium 136 mmol/L (132-148) 05/15/18 07:09 Potassium 3.9 mmol/L (3.6-5.2) 05/15/18 07:09 Chloride 101 mmol/L (98-107) 05/15/18 07:09 Carbon Dioxide 29 mmol/L (22-30) 05/15/18 07:09 Anion Gap 10 (10-20) 05/15/18 07:09 BUN 10 mg/dL (9-20) 05/15/18 07:09 Creatinine 0.5 mg/dL (0.8-1.5) L 05/15/18 07:09 Est GFR ( Amer) > 60 05/15/18 07:09 Est GFR (Non-Af Amer) > 60 05/15/18 07:09 POC Glucose (mg/dL) 103 mg/dL (65-110) 04/24/18 18:07 Random Glucose 137 mg/dL (75-110) H D 05/15/18 07:09 Lactic Acid 1.4 mmol/L (0.7-2.1) 04/15/18 05:49 Uric Acid 3.7 mg/dL (3.5-8.5) 05/11/18 06:24 Calcium 9.1 mg/dl (8.6-10.4) 05/15/18 07:09 Phosphorus 4.4 mg/dL (2.5-4.5) 05/15/18 07:09 Magnesium 1.8 mg/dL (1.6-2.3) 05/15/18 07:09 Total Bilirubin 0.2 mg/dL (0.2-1.3) 05/15/18 07:09 AST 33 U/L (17-59) 05/15/18 07:09 ALT 61 U/L (21-72) 05/15/18 07:09 Alkaline Phosphatase 160 U/L (38-126) H 05/15/18 07:09 Lactate Dehydrogenase 605 U/L (313-618) 04/15/18 05:49 Total Creatine Kinase 165 U/L (55-170) 04/13/18 22:25 Troponin I < 0.0120 ng/mL (0.00-0.120) 04/13/18 22:25 C-Reactive Protein 149.10 mg/L (0.0-9.9) H 05/11/18 06:24 NT-Pro-B Natriuret Pep 1720 pg/mL (0-450) H 04/13/18 22:25 Total Protein 7.7 g/dL (6.3-8.3) 05/15/18 07:09 Albumin 3.4 g/dL (3.5-5.0) L 05/15/18 07:09 Globulin 4.3 gm/dL (2.2-3.9) H 05/15/18 07:09 Albumin/Globulin Ratio 0.8 (1.0-2.1) L 05/15/18 07:09 Triglycerides 121 mg/dL (0-149) 04/15/18 05:49 Cholesterol 104 mg/dL (0-199) 04/15/18 05:49 LDL Cholesterol Direct < 30 mg/dL (0-129) 04/15/18 05:49 HDL Cholesterol 41 mg/dL (30-70) 04/15/18 05:49 Lipase 170 U/L (23-300) 05/13/18 13:46 Procalcitonin < 0.05 NG/ML (0.19-0.49) L 05/07/18 07:04 Free T4 2.01 ng/dL (0.78-2.19) 04/14/18 06:07 TSH 3rd Generation 1.42 mIU/L (0.46-4.68) 04/14/18 06:07 Cortisol AM Sample 22.1 ug/dL (4.46-22.7) 04/15/18 05:49 Arterial Blood Potassium 4.0 mmol/L (3.6-5.2) 04/24/18 17:35 Urine Color Elizabeth (YELLOW) 04/21/18 17:04 Urine Clarity Hazy (Clear) 04/21/18 17:04 Urine pH 5.0 (5.0-8.0) 04/21/18 17:04 Ur Specific [place] 1.030 (1.003-1.030) 04/21/18 17:04 Urine Protein 2+ mg/dL (NEGATIVE) H 04/21/18 17:04 Urine Glucose (UA) Normal mg/dL (Normal) 04/21/18 17:04 Urine Ketones Negative mg/dL (NEGATIVE) 04/21/18 17:04 Urine Blood Trace (NEGATIVE) H 04/21/18 17:04 Urine Nitrate Negative (NEGATIVE) 04/21/18 17:04 Urine Bilirubin Negative (NEGATIVE) 04/21/18 17:04 Urine Urobilinogen Normal mg/dL (0.2-1.0) 04/21/18 17:04 Ur Leukocyte Esterase Neg Martine/uL (Negative) 04/21/18 17:04 Urine WBC (Auto) 3 /hpf (0-5) 04/21/18 17:04 Urine RBC (Auto) 16 /hpf (0-3) H 04/21/18 17:04 Ur Squamous Epith Cells < 1 /hpf (0-5) 04/21/18 17:04 Urine Bacteria Occ (<OCC) H 04/21/18 17:04 Hyaline Casts >20 /lpf (0-2) H 04/13/18 20:48 Urine Osmolality 836 mosm/kg (300-1000) 04/15/18 01:00 Ur Random Sodium 35 mmol/L 04/15/18 01:00 Fluid Type Synovial fluid 05/11/18 14:36 Fluid Source Pleural 04/24/18 19:10 Fluid Appearance Bloody (CLEAR) 04/24/18 19:10 Fluid WBC 26001.0 /mm3 (0.0-300.0) H 04/24/18 19:10 Fluid RBC 496593.0 /mm3 (0.0-0.0) H 04/24/18 19:10 Fluid Tot Cell Count 100 (0-0) H 04/24/18 19:10 Fluid Neutrophils 72.0 % (0-0) H 04/24/18 19:10 Fluid Lymphocytes 20.0 % (0-0) H 04/24/18 19:10 Fld Monocyte/Macrophag 8 % (0-0) H 04/24/18 19:10 Fluid Crystals Positive (NEGATIVE) H 05/11/18 14:36 Fluid Comment 04/24/18 19:10 Pleural Total Protein 5.1 g/dL 04/24/18 19:10 Pleural LDH TNP 04/24/18 19:10 Pleural Glucose 11 mg/dL 04/24/18 19:10 Pleural Amylase <10 U/L 04/24/18 19:10 Synovial WBC 25096.0 /mm3 (0.0-150.0) H 05/11/18 14:36 Synovial RBC 488.0 /mm3 (0.0-0.0) H 05/11/18 14:36 Synovial Neutrophils 90.0 % (0-0) H 05/11/18 14:36 Synovial Lymphocytes 6.0 % (0-0) H 05/11/18 14:36 Synov Monos/Macrophage 4 % (0-0) H 05/11/18 14:36 Synovial Crystal Type Calciumpyrophosphate 05/11/18 14:36 Synovial Glucose 50 mg/dL 05/11/18 14:38 Synovial Uric Acid 3.4 mg/dL (<8.0) 05/11/18 14:36 Synovial LDH See note IU/L 05/11/18 14:36 Synovial Fluid Comment 05/11/18 14:36 Vancomycin Trough 6.8 ug/mL (5.0-10.0) 05/08/18 07:06 Random Vancomycin 10.8 ug/mL 04/26/18 10:40 Urine Opiates Screen Negative (NEGATIVE) 04/15/18 01:00 Urine Methadone Screen Negative (NEGATIVE) 04/15/18 01:00 Ur Barbiturates Screen Negative (NEGATIVE) 04/15/18 01:00 Ur Phencyclidine Scrn Negative (NEGATIVE) 04/15/18 01:00 Ur Amphetamines Screen Negative (NEGATIVE) 04/15/18 01:00 U Benzodiazepines Scrn Negative (NEGATIVE) 04/15/18 01:00 U Oth Cocaine Metabols Negative (NEGATIVE) 04/15/18 01:00 U Cannabinoids Screen Negative (NEGATIVE) 04/15/18 01:00 THIEN Screen Negative (Negative) 05/11/18 06:24 Hepatitis A IgM Ab Negative (NEGATIVE) 04/15/18 05:49 Hep Bs Antigen Negative (NEGATIVE) 04/15/18 05:49 Hep B Core IgM Ab Negative (NEGATIVE) 04/15/18 05:49 Hepatitis C Antibody Negative (NEGATIVE) 04/15/18 05:49 HIV 1&2 Antibody Screen Negative (NEGATIVE) 04/15/18 05:49 Influenza Typ A,B (EIA) Negative for flu a/b (NEGATIVE) 04/13/18 22:40 H.influenzae Type B Ag Negative (NEGATIVE) 04/15/18 06:56 Ur L.pneumophila Ag Negative (NEGATIVE) 04/13/18 22:46 Mycoplasma pneumon IgG <=0.90 (<=0.90) 04/15/18 05:49 Mycoplasma pneumon IgM 204 U/mL (<770) 04/15/18 05:49 N.meningitidis ACY/W135 Negative (NEGATIVE) 04/15/18 06:56 N.meningi B/E.coli K1 Ag Negative (NEGATIVE) 04/15/18 06:56 Group B Strep Antigen Negative (NEGATIVE) 04/15/18 06:56 S. pneumoniae Antigen Negative (NEGATIVE) 04/15/18 06:56 Blood Type O POSITIVE 04/24/18 08:25 Antibody Screen Negative 04/24/18 08:25 Discharge Exam - Head Exam Head Exam: ATRAUMATIC Discharge Plan - Discharge Medications Prescriptions: Amoxicillin/Clavulanate [Augmentin 875 MG-125 MG Tab] 1 tab PO Q12H #5 tab Indomethacin [Indocin] 25 mg PO BID #3 cap Lactobacillus Acidophilus [Lactobacillus] 1 cap PO BID #64 cap Omeprazole 40 mg PO DAILY #2 capsule.dr - Follow Up Plan Condition: STABLE Disposition: HOME/ ROUTINE Instructions: Leukocytosis (DC), Leukocytosis (GEN), Constipation (DC), Constipation (GEN) Additional Instructions: Patient is to be discharged home on the following medications Amoxicillin/Clavulanate [Augmentin 875 MG-125 MG Tab] 1 tab PO Q12H #5 tab: Take @ 8am and 8pm Indomethacin [Indocin] 25 mg PO BID #3 cap: Take @ 8am and 8pm Lactobacillus Acidophilus [Lactobacillus] 1 cap PO BID #64 cap: @ 10am and 6pm Omeprazole 40 mg PO DAILY #2 capsule : Take @ 8am Instructions for Follow Up: 1. Please follow up with Dr Velarde at the [facility] , [address] [facility] call [phone]. Please go within 7 days, this is your new primary doctor, he will coordinate your healthcare. 2. Schedule an appointment with your surgeon Dr Meza, call [phone] for an appointment within 7 days. His office is at [address] [place] [address] [address], [place] 3. Please schedule a meeting for alcohol abuse counseling, at [facility], [address] [place] [id number] call [phone], please go to the next meeting available Take care and be well, you have a second chance at life, please make best of it El paciente debe ser dado de mery con los siguientes medicamentos Amoxicilina / Clavulanato [Ficha Augmentin 875 MG-125 MG] 1 pestaa PO Q12H # 5: Keegan a las 8 a.m. y las 8 p. M. Indometacina [Indocin] 25 mg PO BID # 3 tapa: Keegan a las 8 am y las 8 pm Lactobacillus Acidophilus [Lactobacillus] 1 cap PO BID # 64 cap: @ 10am y 6pm Omeprazol 40 mg PO DAILY # 2 cpsula: Take @ 8am Instrucciones para el seguimiento: 1. Pngase en contacto con el Dr. Velarde en la [facility], [address] [facility], llame al [phone]. Vaya dentro de [address], robert es [place] nuevo mdico de cabdeyanirara, l coordinar hunt[place] atencin mdica. 2. Programe philomena sonido con hunt[place] cirujano, el Dr. Meza, llame al [phone] para philomena sonido dentro de los [address] [place] oficina est en [address], [address], [place], [place] 3. Por favor programe philomena reunin para consejera sobre abuso de alcohol, en la [facility], [address] [facility], [place] [address] llame al [phone], vaya a la prxima reunin disponible Cudate y sintete montrell, tienes philomena segunda oportunidad en la raheem, por favor hazlo lo mejor que puedas
[2018-05-15] MEDS: Multiple Vitamins Tab PO SCH (10:19)
[2018-05-15] MEDS: Pantoprazole 40 mg EC Tab PO SCH (10:20)
[2018-05-15] MEDS: Lactobacillus Acidophilus 500 MU Cap PO SCH (10:20)
[2018-05-15] MEDS ORDERED: Pneumococcal 23-Valent Vaccine IM ONE (11:45)
[2018-05-15] MEDS ORDERED: Influenza Vaccine 60 mcg/0.5 mL SYR (4YR UP) IM ONE (11:45)
--- NOTE | 2018-05-15 13:41 | CP.PCM.PN ---
Subjective - Date & Time of Evaluation Date of Evaluation: 05/15/18 Time of Evaluation: 13:41 - Subjective Subjective: Patient states his knee feels better today. For d/c home. No new complaints. tolerating PT well. Review of Systems - Review of Systems All systems: reviewed and no additional remarkable complaints except - Musculoskeletal Musculoskeletal: As Par HPI Objective - Vital Signs/Intake and Output Vital Signs (last 24 hours): Temp Pulse Resp BP Pulse Ox 97.8 F 98 H 20 112/70 97 05/15/18 07:00 05/15/18 07:00 05/15/18 07:00 05/15/18 07:00 05/15/18 00:00 Intake and Output: 05/15/18 05/15/18 06:59 18:59 Intake Total 400 Balance 400 - Labs Labs: 05/15/18 07:09 05/15/18 07:09 PT 13.7 SECONDS (9.7-12.2) H 04/24/18 06:26 INR 1.3 04/24/18 06:26 APTT 42 SECONDS (21-34) H 04/24/18 06:26 - Constitutional Appears: Well, No Acute Distress - Head Exam Head Exam: ATRAUMATIC - Neck Exam Neck Exam: Full ROM, Normal Inspection - Respiratory Exam Respiratory Exam: NORMAL BREATHING PATTERN - Cardiovascular Exam Additional comments: +DP/PT pulses - Extremities Exam Additional comments: Right knee: no effusion today full ROM painfree, calves soft NT neg homans +ROM ankle/toes sensation intact no erythma Assessment and Plan (1) Pseudogout of right knee Assessment & Plan: s/p steroid injection improved no effusion noted d/c home f/u Dr. Burton 2 weeks prn d/w Dr. Burton, agrees with above Status: Acute
[2018-05-17] MEDS ORDERED: Pneumococcal 23-Valent Vaccine IM ONE (10:52)
[2018-05-17] MEDS ORDERED: Influenza Vaccine 60 mcg/0.5 mL SYR (4YR UP) IM ONE (10:52)
== END 2018-05-15 13:30 | disposition home or self-care (01) | DRG 710 ==
LOC: C.ER 20:28 → C.9I 23:11 → C.3T 05-02 22:00 → C.6T 05-11 22:00
PROVIDERS: ADMIT Internal Medicine; ATTEND Internal Medicine
PROC: 0BH18EZ Insertion of Endotracheal Airway into Trachea, Via Natural or Artificial Opening Endoscopic (ICD-10-PCS; 2018-04-15)
PROC: 5A1955Z Respiratory Ventilation, Greater than 96 Consecutive Hours (ICD-10-PCS; 2018-04-15)
PROC: 5A09457 Assistance with Respiratory Ventilation, 24-96 Consecutive Hours, Continuous Positive Airway Pressure (ICD-10-PCS; 2018-04-15)
PROC: 0W9900Z Drainage of Right Pleural Cavity with Drainage Device, Open Approach (ICD-10-PCS; 2018-04-18)
PROC: 0B21XFZ Change Tracheostomy Device in Trachea, External Approach (ICD-10-PCS; 2018-04-19)
PROC: 0B9F8ZX Drainage of Right Lower Lung Lobe, Via Natural or Artificial Opening Endoscopic, Diagnostic (ICD-10-PCS; 2018-04-19)
PROC: 0B9D8ZX Drainage of Right Middle Lung Lobe, Via Natural or Artificial Opening Endoscopic, Diagnostic (ICD-10-PCS; 2018-04-19)
PROC: 0BBF0ZX Excision of Right Lower Lung Lobe, Open Approach, Diagnostic (ICD-10-PCS; 2018-04-24)
PROC: 0BCN0ZZ Extirpation of Matter from Right Pleura, Open Approach (ICD-10-PCS; 2018-04-24)
PROC: 0BBN0ZZ Excision of Right Pleura, Open Approach (ICD-10-PCS; 2018-04-24)
PROC: 30233N1 Transfusion of Nonautologous Red Blood Cells into Peripheral Vein, Percutaneous Approach (ICD-10-PCS; 2018-04-24)
PROC: 0BBD0ZX Excision of Right Middle Lung Lobe, Open Approach, Diagnostic (ICD-10-PCS; principal; 2018-04-24 11:00)
DX: A41.9 Sepsis, unspecified organism (principal); J96.01 Acute respiratory failure with hypoxia; J69.0 Pneumonitis due to inhalation of food and vomit; J86.9 Pyothorax without fistula; N17.9 Acute kidney failure, unspecified; E83.42 Hypomagnesemia; I31.3 Pericardial effusion (noninflammatory); R16.0 Hepatomegaly, not elsewhere classified; R65.20 Severe sepsis without septic shock; M11.261 Other chondrocalcinosis, right knee; K76.0 Fatty (change of) liver, not elsewhere classified; E87.6 Hypokalemia; T50.1X5A Adverse effect of loop [high-ceiling] diuretics, initial encounter; Z99.11 Dependence on respirator [ventilator] status; N12 Tubulo-interstitial nephritis, not specified as acute or chronic; J98.11 Atelectasis; E22.2 Syndrome of inappropriate secretion of antidiuretic hormone; F10.231 Alcohol dependence with withdrawal delirium

== ENCOUNTER 2018-05-22 11:48 | Outpatient (CLI) | payer OTHER | END 2018-05-22 11:49 | disposition home or self-care (01) | LOC: C.RADH 11:48 ==

== ENCOUNTER 2018-05-29 10:28 | Outpatient (CLI) | payer OTHER | END 2018-05-29 10:29 | disposition home or self-care (01) | LOC: C.RADH 10:28 ==

== ENCOUNTER 2018-06-04 11:01 | Emergency (ER) | payer OTHER | END 2018-06-04 15:35 | disposition home or self-care (01) | LOC: C.ER 11:01 ==